=== PATIENT | male | born 1955 | race Caucasian/White ===

== ENCOUNTER 2021-12-14 08:40 | Outpatient (CLI) | payer MEDICARE, SELFPAY ==
[2021-12-14 09:04] LABS: Hematocrit 54.4 % (37.0-46.0); Hemoglobin 18.5 g/dL (12.4-15.3); Mean Corpuscular Hemoglobin 29.9 pg (27.0-31.0); Mean Platelet Volume 10.4 fl (8.7-11.0); Platelet Count Result 300 K/mm3 (150-420); Red Blood Count 6.18 M/mm3 (4.70-6.10); Red Cell Distribution Width 13.7 % (11.6-14.4)
[2021-12-14 09:25] LABS: Hemoglobin A1C 6.4 % (<5.7)
[2021-12-14 09:28] LABS: Alanine Aminotransferase 43 U/L (16-63); Alkaline Phosphatase 96 U/L (46-116); Anion Gap 15 mmol/L (8-16); Aspartate Amino Transferase 27 U/L (15-37); Bilirubin,Total 0.5 mg/dL (0.00-1.00); Blood Urea Nitrogen 14 mg/dL (7-18); Calcium 9.1 mg/dL (8.5-10.1); Carbon Dioxide 28 mmol/L (21-32); Chloride 99 mmol/L (98-108); Cholesterol 129 mg/dL (0-200); Estimated Glomerular Filt Rate > 60; Glucose 130 mg/dL (70-99); HDL Direct 42 mg/dL (40-60); LDL Cholesterol Calculated 61 mg/dL (<130); Osmolality Calculated 296 mOsm/kg (285-295); Potassium 3.6 mmol/L (3.5-5.1); Sodium 142 mmol/L (136-145); Total Protein 7.8 g/dL (6.4-8.2); Triglycerides 130 mg/dL (0-150)
[2021-12-14 09:50] LABS: MALB Creatinine Ratio 580.2 mg/g (0-30); Microalbumin Urine Random 152.6 mg/L
== END 2021-12-14 08:41 | disposition home or self-care (01) ==
LOC: CHSLAB 08:48
PROVIDERS: PCP Internal Medicine; Visit Provider Internal Medicine
DX: E11.9 Type 2 diabetes mellitus without complications (principal); I10 Essential (primary) hypertension
CPT/HCPCS: 36415; 80053; 80061; 82043; 83036; 85027

== ENCOUNTER 2022-04-25 08:22 | Outpatient (CLI) | payer MEDICARE, SELFPAY ==
[2022-04-25 08:46] LABS: Basophils Absolute Auto 0.05 K/mm3 (0.00-0.10); Basophils Percent Auto 0.3 % (0.0-1.0); Eosinophils Absolute Auto 0.14 K/mm3 (0.02-0.50); Eosinophils Percent Auto 0.9 % (1.0-6.0); Hematocrit 53.6 % (37.0-46.0); Hemoglobin 17.7 g/dL (12.4-15.3); Immature Granulocyte Absolute 0.06 K/mm3 (0.00-0.00); Immature Granulocyte Percent A 0.4 % (0.0-0.0); Lymphocytes Absolute Auto 3.17 K/mm3 (1.10-4.50); Lymphocytes Percent Auto 20.3 % (18.0-42.0); Mean Corpuscular Hemoglobin 29.4 pg (27.0-31.0); Monocytes Absolute Auto 1.21 K/mm3 (0.10-0.90); Monocytes Percent Auto 7.7 % (2.0-11.0); Neutrophils Percent Auto 70.4 % (50.0-70.0); Platelet Count Result 312 K/mm3 (150-420); Red Blood Count 6.02 M/mm3 (4.70-6.10); Red Cell Distribution Width 13.6 % (11.6-14.4); White Blood Count 15.6 K/mm3 (4.8-10.8)
[2022-04-25 09:24] LABS: Hemoglobin A1C 5.9 % (<5.7)
[2022-04-25 09:53] LABS: Alanine Aminotransferase 24 U/L (16-63); Albumin Level 3.7 g/dL (3.4-5.0); Alkaline Phosphatase 111 U/L (46-116); Anion Gap 13 mmol/L (8-16); Aspartate Amino Transferase 18 U/L (15-37); Bilirubin,Total 0.4 mg/dL (0.00-1.00); Blood Urea Nitrogen 14 mg/dL (7-18); Carbon Dioxide 30 mmol/L (21-32); Chloride 102 mmol/L (98-108); Cholesterol 137 mg/dL (0-200); Estimated Glomerular Filt Rate > 60; Glucose 121 mg/dL (70-99); HDL Direct 35 mg/dL (40-60); LDL Cholesterol Calculated 76 mg/dL (<130); Osmolality Calculated 301 mOsm/kg (285-295); Potassium 3.7 mmol/L (3.5-5.1); Sodium 145 mmol/L (136-145); Total Protein 7.3 g/dL (6.4-8.2); Triglycerides 131 mg/dL (0-150)
== END 2022-04-25 08:23 | disposition home or self-care (01) ==
LOC: CHSLAB 08:24
PROVIDERS: PCP Internal Medicine; Visit Provider Internal Medicine
DX: E11.9 Type 2 diabetes mellitus without complications (principal); E78.2 Mixed hyperlipidemia
CPT/HCPCS: 36415; 80053; 80061; 83036; 85025

== ENCOUNTER 2022-09-13 08:38 | Outpatient (CLI) | payer MEDICARE, SELFPAY ==
[2022-09-13 09:28] LABS: Basophils Absolute Auto 0.06 K/mm3 (0.00-0.10); Basophils Percent Auto 0.4 % (0.0-1.0); Eosinophils Absolute Auto 0.14 K/mm3 (0.02-0.50); Eosinophils Percent Auto 0.9 % (1.0-6.0); Hematocrit 53.6 % (37.0-46.0); Hemoglobin 17.6 g/dL (12.4-15.3); Immature Granulocyte Absolute 0.06 K/mm3 (0.00-0.00); Immature Granulocyte Percent A 0.4 % (0.0-0.0); Lymphocytes Absolute Auto 3.08 K/mm3 (1.10-4.50); Lymphocytes Percent Auto 19.7 % (18.0-42.0); Mean Corpuscular HGB Conc 32.8 g/dL (32.0-36.0); Mean Corpuscular Hemoglobin 28.9 pg (27.0-31.0); Mean Corpuscular Volume 88.2 fL (78.0-102.0); Mean Platelet Volume 10.4 fl (8.7-11.0); Monocytes Absolute Auto 1.26 K/mm3 (0.10-0.90); Monocytes Percent Auto 8.1 % (2.0-11.0); Neutrophils Percent Auto 70.5 % (50.0-70.0); Platelet Count Result 283 K/mm3 (150-420); Red Blood Count 6.08 M/mm3 (4.70-6.10); Red Cell Distribution Width 13.5 % (11.6-14.4); White Blood Count 15.6 K/mm3 (4.8-10.8)
[2022-09-13 09:50] LABS: Hemoglobin A1C 6.2 % (<5.7)
[2022-09-13 10:39] LABS: Creatinine Urine 92.26 mg/dL (40-278); MALB Creatinine Ratio 105.6 mg/g (0-30); Microalbumin Urine Random 97.5 mg/L
[2022-09-13 11:29] LABS: Alanine Aminotransferase 19 U/L (16-63); Albumin Level 3.7 g/dL (3.4-5.0); Alkaline Phosphatase 117 U/L (46-116); Anion Gap 12 mmol/L (8-16); Aspartate Amino Transferase 14 U/L (15-37); Bilirubin,Total 0.5 mg/dL (0.00-1.00); Blood Urea Nitrogen 12 mg/dL (7-18); Calcium 8.7 mg/dL (8.5-10.1); Carbon Dioxide 29 mmol/L (21-32); Chloride 105 mmol/L (98-108); Cholesterol 141 mg/dL (0-200); Estimated Glomerular Filt Rate > 60; Glucose 117 mg/dL (70-99); HDL Direct 38 mg/dL (40-60); LDL Cholesterol Calculated 86 mg/dL (<130); Osmolality Calculated 302 mOsm/kg (285-295); Potassium 3.9 mmol/L (3.5-5.1); Sodium 146 mmol/L (136-145); Total Protein 7.4 g/dL (6.4-8.2); Triglycerides 83 mg/dL (0-150)
== END 2022-09-13 08:39 | disposition home or self-care (01) ==
LOC: CHSLAB 08:44
DX: E11.9 Type 2 diabetes mellitus without complications (principal); I10 Essential (primary) hypertension
CPT/HCPCS: 36415; 80053; 80061; 82043; 83036; 85025

== ENCOUNTER 2023-01-18 08:23 | Outpatient (CLI) | payer MEDICARE, SELFPAY ==
[2023-01-18 08:49] LABS: Basophils Absolute Auto 0.07 K/mm3 (0.00-0.10); Basophils Percent Auto 0.5 % (0.0-1.0); Eosinophils Absolute Auto 0.18 K/mm3 (0.02-0.50); Eosinophils Percent Auto 1.3 % (1.0-6.0); Hemoglobin 17.9 g/dL (12.4-15.3); Immature Granulocyte Absolute 0.07 K/mm3 (0.00-0.00); Immature Granulocyte Percent A 0.5 % (0.0-0.0); Lymphocytes Absolute Auto 3.15 K/mm3 (1.10-4.50); Lymphocytes Percent Auto 22.6 % (18.0-42.0); Mean Corpuscular HGB Conc 33.8 g/dL (32.0-36.0); Mean Corpuscular Volume 88.9 fL (78.0-102.0); Mean Platelet Volume 10.4 fl (8.7-11.0); Monocytes Absolute Auto 1.05 K/mm3 (0.10-0.90); Monocytes Percent Auto 7.5 % (2.0-11.0); Neutrophils Absolute Auto 9.4 K/mm3 (1.7-7.2); Neutrophils Percent Auto 67.6 % (50.0-70.0); Platelet Count Result 278 K/mm3 (150-420); Red Blood Count 5.96 M/mm3 (4.70-6.10); Red Cell Distribution Width 13.3 % (11.6-14.4); White Blood Count 13.9 K/mm3 (4.8-10.8)
[2023-01-18 09:12] LABS: Hemoglobin A1C 6.3 % (<5.7)
[2023-01-18 09:26] LABS: Alanine Aminotransferase 8 U/L (16-63); Albumin Level 3.8 g/dL (3.4-5.0); Alkaline Phosphatase 113 U/L (46-116); Anion Gap 11 mmol/L (8-16); Aspartate Amino Transferase 16 U/L (15-37); Bilirubin,Total 0.4 mg/dL (0.00-1.00); Blood Urea Nitrogen 12 mg/dL (7-18); Calcium 8.8 mg/dL (8.5-10.1); Carbon Dioxide 29 mmol/L (21-32); Chloride 104 mmol/L (98-108); Cholesterol 138 mg/dL (0-200); Estimated Glomerular Filt Rate > 60; Glucose 121 mg/dL (70-99); HDL Direct 36 mg/dL (40-60); LDL Cholesterol Calculated 81 mg/dL (<130); Osmolality Calculated 298 mOsm/kg (285-295); Potassium 3.6 mmol/L (3.5-5.1); Sodium 144 mmol/L (136-145); Total Protein 7.6 g/dL (6.4-8.2); Triglycerides 104 mg/dL (0-150)
== END 2023-01-18 08:24 | disposition home or self-care (01) ==
LOC: CHSLAB 08:27
PROVIDERS: PCP Internal Medicine; Visit Provider Internal Medicine
DX: I10 Essential (primary) hypertension (principal); E11.9 Type 2 diabetes mellitus without complications; D72.829 Elevated white blood cell count, unspecified
CPT/HCPCS: 36415; 80053; 80061; 83036; 85025

== ENCOUNTER 2023-06-20 10:52 | Emergency (ER) | payer MEDICARE, SELFPAY ==
--- NOTE | ~2023-06-20 | XR_ITS ---
EXAMINATION: XR hip LT 2V w AP pelvis DATE: 06/20/2023 11:40 INDICATION: Left hip pain. Fall. TECHNIQUE: An anteroposterior view of the pelvis and 2 views of left hip were obtained. COMPARISON: None. FINDINGS: There is a fracture of proximal left femur involving the base of the neck and the greater t rochanter. The distal fracture fragment demonstrates impaction. There is widening of right femoral he ad with lateral uncovering, consistent with developmental dysplasia. There is moderate osteoarthritis of the hips. There is lumbar dextroscoliosis and severe spondylosis. IMPRESSION: 1. Intertrochanteric fracture of proximal left femur. 2. Moderate osteoarthritis of the hips. 3. Developmental dysplasia of right hip. Reviewed, dictated and finalized at location A.
--- NOTE | ~2023-06-20 | CT_ITS ---
EXAMINATION: CT BRAIN W/O DATE: 06/20/2023 11:36 INDICATION: Accidental fall. Head injury. TECHNIQUE: Computed tomography (CT) of the head was performed without intravenous contrast. The dose- length product was 605.33 mGy-cm. COMPARISON: No prior studies for comparison. FINDINGS: Mild generalized atrophy. No acute intracranial hemorrhage, infarction, mass or mass effect . No ventriculomegaly. There is intracranial atherosclerosis. No ventriculomegaly or midline shift. Midline sagittal images demonstrate a normal corpus callosum, c raniovertebral junction and sella turcica. Basilar cisterns are patent. There are air-fluid levels in the ethmoid sinuses consistent with sinus disease. Mastoids are pneumat ized. No depressed skull fractures. IMPRESSION: 1. No acute intracranial abnormality. 2: Mild sinus disease. Reviewed, dictated and finalized at location B.
[2023-06-20 10:55] VITALS: BP 184/98; PULSE 81; RESP 18; TEMP 36.7; O2SAT 98
--- NOTE | 2023-06-20 11:02 | ED.LOWEXIN ---
HPI - Extremity Injury (Lower) General Chief Complaint: Extremity Injury, Lower Stated Complaint: fall, left hip pain Time Seen by Provider: 06/20/23 11:02 Source: patient Mode of arrival: ambulatory Limitations: no limitations History of Present Illness HPI Narrative: 68-year-old male with a history of hypertension, diabetes mellitus, dyslipidemia, CAD status post stent in 1999, had a fall 1 week ago. Subsequently he has had difficulty ambulating. He does not have pain at rest but complains of pain on attempting to walk. No other injuries noted. MD complaint: hip injury Onset (ago): week(s) ( One week ago) Type of Injury: blunt Place: home Severity: moderate Relieving factors: immobilization Exacerbating factors: movement Context: fall Other symptoms: none Related Data Home Medications Medication Instructions Recorded Confirmed amlodipine 10 mg tablet 10 mg PO DAILY 06/20/23 06/20/23 aspirin 81 mg tablet,delayed 81 mg PO DAILY 06/20/23 06/20/23 release (Adult Low Dose Aspirin) benazepril 40 mg tablet 40 mg PO DAILY 06/20/23 06/20/23 carvedilol 25 mg tablet 25 mg PO BID 06/20/23 06/20/23 clonidine HCl 0.2 mg tablet 0.2 mg PO TID 06/20/23 06/20/23 clopidogrel 75 mg tablet 75 mg PO DAILY 06/20/23 06/20/23 empagliflozin 10 mg tablet 10 mg PO DAILY 06/20/23 06/20/23 (Jardiance) metformin 1,000 mg tablet 1,000 mg PO DAILY 06/20/23 06/20/23 simvastatin 20 mg tablet 20 mg PO DAILY 06/20/23 06/20/23 Allergies Allergy/AdvReac Type Severity Reaction Status Date / Time No Known Allergies Allergy Verified 06/20/23 11:00 Review of Systems Review of Systems: All systems reviewed & are unremarkable except as noted in HPI and below Constitutional: Constitutional: Reports as per HPI and Reports no additional constitutional complaints Eyes: Eyes: Reports as per HPI and Reports no additional eye complaints ENT: Reports system reviewed and no additional complaints, except as documented and Reports as per HPI Cardiovascular: Cardiovascular: Reports as per HPI and Reports no additional cardiovascular complaints Respiratory: Respiratory: Reports as per HPI and Reports no additional respiratory complaints Gastrointestinal: Gastrointestinal: Reports as per HPI and Reports no additional gastrointestinal complaints Genitourinary: Genitourinary: Reports no additional male genitourinary complaints and Reports as per HPI Musculoskeletal: Musculoskeletal: Reports no additional musculoskeletal complaints and Reports as per HPI Comments: left hip pain made worse by walking Integumentary/Breasts: Skin/Breast: Reports system reviewed and no additional complaints, except as docu and Reports as per HPI Neurologic: Reports system reviewed and no additional complaints, except as documented and Reports as per HPI Psychiatric: Psychiatric: Reports no additional psychiatric complaints and Reports as per HPI Endocrine: Endocrine: Reports no additional endocrine complaints and Reports as per HPI Hematologic/Lymphatic: Hematologic/Lymphatic: Reports no additional hematologic/lymphatic complaints and Reports as per HPI Allergic/Immunologic: Allergic/Immunologic: Reports no additional allergic/immunologic complaints and Reports as per HPI [facility] Past Medical History Medical History (Updated 06/20/23 @ 13:03 by Kamlesh Tillman MD) Diabetes mellitus Dyslipidemia Hypertension Exam Narrative: hypertensive Const: General: no acute distress Orientation/consciousness: patient oriented x3 Limitations: no limitations HENMT: Head: normal to inspection Ears: external ears normal Face/Nose/Sinus: Normal external nose present Face and sinus: normal facial exam Mouth: Yes Normal oral and palatal mucosa present Throat: posterior oropharynx normal Eyes: Conjunctivae: conjunctivae normal Pupils: Equal, round and reactive pupils present EOM: EOMs intact bilaterally Direct Ophthalmoscopy: no photophobia Neck: Neck: n
[2023-06-20 11:20] VITALS: BP 165/90
[2023-06-20 12:46] LABS: Basophils Absolute Auto 0.07 K/mm3 (0.00-0.10); Basophils Percent Auto 0.5 % (0.0-1.0); Eosinophils Absolute Auto 0.08 K/mm3 (0.02-0.50); Eosinophils Percent Auto 0.6 % (1.0-6.0); Hematocrit 53.3 % (37.0-46.0); Hemoglobin 17.6 g/dL (12.4-15.3); Immature Granulocyte Absolute 0.06 K/mm3 (0.00-0.00); Immature Granulocyte Percent A 0.4 % (0.0-0.0); Lymphocytes Absolute Auto 2.22 K/mm3 (1.10-4.50); Lymphocytes Percent Auto 15.8 % (18.0-42.0); Mean Corpuscular Hemoglobin 29.8 pg (27.0-31.0); Mean Corpuscular Volume 90.2 fL (78.0-102.0); Mean Platelet Volume 10.5 fl (8.7-11.0); Monocytes Absolute Auto 0.91 K/mm3 (0.10-0.90); Monocytes Percent Auto 6.5 % (2.0-11.0); Neutrophils Absolute Auto 10.7 K/mm3 (1.7-7.2); Neutrophils Percent Auto 76.2 % (50.0-70.0); Platelet Count Result 300 K/mm3 (150-420); Red Blood Count 5.91 M/mm3 (4.70-6.10); Red Cell Distribution Width 13.9 % (11.6-14.4)
[2023-06-20 13:03] LABS: Partial Thromboplastin Time 28.2 SEC (23.90-30.70); Prothrombin Time 11.3 Seconds (9.50-12.10)
[2023-06-20 13:05] LABS: Alanine Aminotransferase 18 U/L (16-63); Albumin Level 3.6 g/dL (3.4-5.0); Alkaline Phosphatase 112 U/L (46-116); Anion Gap 7 mmol/L (8-16); Aspartate Amino Transferase 20 U/L (15-37); Bilirubin,Total 0.6 mg/dL (0.00-1.00); Blood Urea Nitrogen 13 mg/dL (7-18); Calcium 8.8 mg/dL (8.5-10.1); Carbon Dioxide 33 mmol/L (21-32); Chloride 102 mmol/L (98-108); Estimated CRCL calculation 69 ml/min; Estimated Glomerular Filt Rate > 60; Glucose 123 mg/dL (70-99); NT Pro B Type Natriuretic Pept 265 pg/mL (0-125); Osmolality Calculated 295 mOsm/kg (285-295); Potassium 3.5 mmol/L (3.5-5.1); Sodium 142 mmol/L (136-145); Total Protein 7.7 g/dL (6.4-8.2); Troponin I 14.6 ng/L (0.00-60.4)
[2023-06-20 13:10] VITALS: BP 175/88; PULSE 83; RESP 17; TEMP 36.6; O2SAT 98
[2023-06-20 13:35] VITALS: BP 171/90; PULSE 75; RESP 16; TEMP 36.6; O2SAT 99
[2023-06-20 13:41] LABS: Appearance Urine Clear (Clear); Bilirubin Urine Negative (Negative); Blood Urine Negative (Negative); Color Urine Light Yellow (Yellow); Glucose Urine UA 3+ (Negative); Ketones Urine Trace (Negative); Leukocyte Esterase Ur Negative LEU/UL (Negative); Nitrate Urine Positive (Negative); Protein Urine Negative (Negative); Urobilinogen Urine 0.2 mg/dL (0.2-1.0)
[2023-06-20 13:50] LABS: Add Urine Microscopic? YES; RBC Urine None seen /hpf (0-2); WBC Urine None seen /hpf (0-3)
[2023-06-20 13:51] LABS: Bacteria Urine 2+ /hpf
--- NOTE | 2023-06-23 12:55 | PC.NURSE ---
Final urine culture report faxed to [facility], Patient transferred to [facility] and is in room 920. report faxed to [phone]
== END 2023-06-20 13:40 | disposition short-term general hospital (02) ==
PROVIDERS: Emergency Provider Internal Medicine Critical Care Medicine; PCP Internal Medicine
DX: S72.142A Displaced intertrochanteric fracture of left femur, initial encounter for closed fracture (principal); E11.9 Type 2 diabetes mellitus without complications; I10 Essential (primary) hypertension; E78.5 Hyperlipidemia, unspecified; I25.10 Atherosclerotic heart disease of native coronary artery without angina pectoris; Z79.82 Long term (current) use of aspirin; Z79.84 Long term (current) use of oral hypoglycemic drugs; W19.XXXA Unspecified fall, initial encounter; Y92.009 Unspecified place in unspecified non-institutional (private) residence as the place of occurrence of the external cause
CPT/HCPCS: 36415; 70450; 73502; 80053; 81001; 83880; 84484; 85025; 85610; 85730; 87077; 87086; 87088; 87186; 99285

== ENCOUNTER 2023-07-12 15:33 | Outpatient (RCR) | payer MEDICARE, SELFPAY ==
--- NOTE | 2023-07-12 14:57 | OPREHPOC ---
Outpatient Therapy Plan of Care This is a Multidisciplinary Plan of Care that may contain components documented by all disciplines (PT, OT, and ST.) PT Problem 1 PT Problem #1 Knowledge Deficit PT Goal 1 Goal 1. independent and compliant with HEP Target Visit 6 PT Problem 2 PT Problem #2 Impaired Strength PT Goal 1 Goal 1. patient to perform SLR of the L LE without extension lag 2. 4/5 L hip flexion or better 3. 5/5 L knee flexion and extension 4. 5/5 L ankle DF Target Visit 12 PT Problem 3 PT Problem #3 Impaired Balance PT Goal 1 Goal 1. tinetti to display moderate fall risk or less ( achieving score of 19/28 or better). 2. no falls Target Visit 12 PT Problem 4 PT Problem #4 Impaired Functional Mobil PT Goal 1 Goal 1. patient to ambulate with equal step/stride length bilaterally with walker to progress to cane for ambulation 2. patient to ambulate up and down 4 steps with marked time pattern and 1 hand rail hold 3. complete 6 minute walk test for 600ft or more Target Visit 12 PT Problem 5 PT Problem #5 Impaired Flexibility PT Goal 1 Goal 1. improve hip posture to achieve neutral/no hip flexion in standing 2. improve bilateral hamstrings flexibility to 30 degrees or less tightness per the 90/90 test Target Visit 12
--- NOTE | 2023-07-12 14:57 | PTOPEVAL1 ---
Assessment and note entered by JT File, PT Evaluation Information Assessment Status Evaluation Diagnosis s/p CMN L hip, L femur fracture Onset 06/22/23 Subjective Information patient reports he fell in his living room. he reports he was using a cane prior to the fall. he had surgery to stabilize his fracture. he reports he just had the jules removed from the incision last week. he reports he is wanting to get stronger and get back to a cane or less for walking. Reported Pain Level Pain Score 1: Self Report Assessment PT Clinical Summary mr. birmingham is a 68 yo man who presents to skilled PT services for evaluation and treatment of L hip pain, weakness, and abnormal gait following a fracture and surgical repair of the L hip. he presents with objective L hip weakness, decreased rom, poor flexibility, abnormal gait, and balance. he would benefit from continued skilled PT to address these objective/functional deficits to return to his prior level functional activity performance/quality of life. Plan of Care Interventions Gait Training,Manual Therapy,Neuro Re-education, Patient/Caregiver Educati,Therapeutic Activities, Therapeutic Exercise PT Services Indicated Yes Treatment Frequency and 3x weekly for 12 visits Duration These treatments will address the objective and functional deficits as defined above. The patient will be advanced safely and appropriately in order for the patient to progress towards his/her prior level of function. Additional exercises will be introduced and as well as a comprehensive home exercise program upon discharge, if needed, ?to ensure carryover of functional gains achieved in the clinic. This treatment plan has been reviewed and agreement upon by the patient.
--- NOTE | 2023-08-02 17:07 | PTOPPROGNS ---
Assessment and note entered by Paulette Salinas, PT Evaluation Information Assessment Status Progress Diagnosis s/p CMN L hip, L femur fracture Onset 06/22/23 Subjective Information Shaheen Headley reports his left hip has had very little pain. He rates less than 1/10 at all time. He is using his front door to go in and out of his house because there is a hand rail and he feels a little unsteady without a hand rail. He also notes limitations with how far he can walk. He denies fall since initiating PT. Assessment PT Clinical Summary Shaheen Headley has completed 10 skilled physical therapy visits following a left femur fracture with CMN. He is reporting low pain levels in the left hip however, he still has weakness and limitations with walking. He is demonstrating steady improvements in gait, balance, and LE strength however, he still has impaired gait, decreased dynamic balance, decreased left hip strength, and decreased functional abilities. He will continue to benefit from skilled PT to further address these limitations. Plan of Care Interventions Therapeutic Activities,Therapeutic Exercise PT Services Indicated Yes Treatment Frequency and Continue original POC for 2 additional visits Duration These treatments will address the objective and functional deficits as defined above. The patient will be advanced safely and appropriately in order for the patient to progress towards his/her prior level of function. Additional exercises will be introduced and as well as a comprehensive home exercise program upon discharge, if needed, ?to ensure carryover of functional gains achieved in the clinic. This treatment plan has been reviewed and agreement upon by the patient.
--- NOTE | 2023-08-09 14:36 | OPREHPOC ---
Outpatient Therapy Plan of Care This is a Multidisciplinary Plan of Care that may contain components documented by all disciplines (PT, OT, and ST.) PT Problem 1 PT Problem #1 Knowledge Deficit PT Goal 1 Goal 1. independent and compliant with HEP Target Visit 6 Progress Met Comment . PT Problem 2 PT Problem #2 Impaired Strength PT Goal 1 Goal 1. patient to perform SLR of the L LE without extension lag 2. 4/5 L hip flexion or better 3. 5/5 L knee flexion and extension 4. 5/5 L ankle DF Target Visit 12 Progress Met PT Problem 3 PT Problem #3 Impaired Balance PT Goal 1 Goal 1. tinetti to display moderate fall risk or less ( achieving score of 19/28 or better). 2. no falls Target Visit 12 Progress Not Met Comment #1 not met PT Problem 4 PT Problem #4 Impaired Functional Mobil PT Goal 1 Goal 1. patient to ambulate with equal step/stride length bilaterally with walker to progress to cane for ambulation -met 2. patient to ambulate up and down 4 steps with marked time pattern and 1 hand rail hold -met 3. complete 6 minute walk test for 600ft or more - progressing, continue Target Visit 12 Progress Not Met Comment #3 not met PT Problem 5 PT Problem #5 Impaired Flexibility PT Goal 1 Goal 1. improve hip posture to achieve neutral/no hip flexion in standing 2. improve bilateral hamstrings flexibility to 30 degrees or less tightness per the 90/90 test Target Visit 12 Progress Not Met
--- NOTE | 2023-08-09 14:37 | PTOPDC ---
Assessment and note entered by Sruthi Griffiths DPT Evaluation Information Assessment Status Re-evaluation Diagnosis s/p CMN L hip, L femur fracture Onset 06/22/23 Subjective Information He reports no falls since start of PT. He reports he uses the cane most times but does occasionally use the walker at home. He reports he does feel like strength and balance have improved since start of PT. He reports he has not had any hip pain Reported Pain Level Pain Score 0: Self Report Assessment PT Clinical Summary Mr. Griffin attended 12 visits of skilled PT with great progress towards goals. Patient met goals for strength, pain and HEP. He made progress towards balance, ambulation and flexibility goals but did not meet them. He reports no falls since start of PT and has been using a cane most of the time. He is independent with HEP and is appropriate for DC at this time. Plan of Care PT Services Indicated No
== END 2023-08-09 11:31 | disposition home or self-care (01) ==
LOC: CHSPT 15:33
PROVIDERS: Visit Provider Orthopaedic Surgery Orthopaedic Trauma
DX: S72.142D Displaced intertrochanteric fracture of left femur, subsequent encounter for closed fracture with routine healing (principal)
CPT/HCPCS: 97110; 97150; 97161; 97530; 97750

== ENCOUNTER 2023-07-27 10:22 | Outpatient (CLI) | payer MEDICARE, SELFPAY ==
[2023-07-27 10:35] LABS: Basophils Absolute Auto 0.06 K/mm3 (0.00-0.10); Basophils Percent Auto 0.5 % (0.0-1.0); Eosinophils Absolute Auto 0.12 K/mm3 (0.02-0.50); Hematocrit 52.7 % (37.0-46.0); Hemoglobin 17.6 g/dL (12.4-15.3); Immature Granulocyte Absolute 0.03 K/mm3 (0.00-0.00); Immature Granulocyte Percent A 0.3 % (0.0-0.0); Lymphocytes Absolute Auto 2.89 K/mm3 (1.10-4.50); Mean Corpuscular HGB Conc 33.4 g/dL (32.0-36.0); Mean Corpuscular Hemoglobin 30.3 pg (27.0-31.0); Mean Corpuscular Volume 90.9 fL (78.0-102.0); Mean Platelet Volume 10.6 fl (8.7-11.0); Monocytes Absolute Auto 1.03 K/mm3 (0.10-0.90); Monocytes Percent Auto 8.9 % (2.0-11.0); Neutrophils Absolute Auto 7.4 K/mm3 (1.7-7.2); Neutrophils Percent Auto 64.3 % (50.0-70.0); Platelet Count Result 285 K/mm3 (150-420); Red Cell Distribution Width 13.6 % (11.6-14.4); White Blood Count 11.6 K/mm3 (4.8-10.8)
[2023-07-27 10:55] LABS: Hemoglobin A1C 5.3 % (<5.7)
[2023-07-27 11:29] LABS: Alanine Aminotransferase 20 U/L (16-63); Albumin Level 3.8 g/dL (3.4-5.0); Alkaline Phosphatase 129 U/L (46-116); Anion Gap 13 mmol/L (8-16); Aspartate Amino Transferase 10 U/L (15-37); Bilirubin,Total 0.5 mg/dL (0.00-1.00); Blood Urea Nitrogen 11 mg/dL (7-18); Calcium 9.3 mg/dL (8.5-10.1); Carbon Dioxide 29 mmol/L (21-32); Chloride 103 mmol/L (98-108); Cholesterol 162 mg/dL (0-200); Estimated Glomerular Filt Rate > 60; Glucose 107 mg/dL (70-99); HDL Direct 42 mg/dL (40-60); LDL Cholesterol Calculated 100 mg/dL (<130); Osmolality Calculated 299 mOsm/kg (285-295); Potassium 3.9 mmol/L (3.5-5.1); Sodium 145 mmol/L (136-145); Total Protein 7.3 g/dL (6.4-8.2); Triglycerides 98 mg/dL (0-150)
== END 2023-07-27 10:23 | disposition home or self-care (01) ==
LOC: CHSLAB 10:25
PROVIDERS: PCP Internal Medicine; Visit Provider Internal Medicine
DX: E11.9 Type 2 diabetes mellitus without complications (principal); I10 Essential (primary) hypertension
CPT/HCPCS: 36415; 80053; 80061; 83036; 85025

== ENCOUNTER 2023-12-19 09:26 | Outpatient (CLI) | payer MEDICARE, SELFPAY ==
[2023-12-19 09:41] LABS: Basophils Percent Auto 0.8 % (0.0-1.0); Eosinophils Absolute Auto 0.49 K/mm3 (0.02-0.50); Eosinophils Percent Auto 3.8 % (1.0-6.0); Hematocrit 55.9 % (37.0-46.0); Hemoglobin 18.7 g/dL (12.4-15.3); Immature Granulocyte Absolute 0.04 K/mm3 (0.00-0.00); Immature Granulocyte Percent A 0.3 % (0.0-0.0); Lymphocytes Absolute Auto 3.78 K/mm3 (1.10-4.50); Lymphocytes Percent Auto 29.5 % (18.0-42.0); Mean Corpuscular HGB Conc 33.5 g/dL (32-36); Mean Corpuscular Hemoglobin 29.7 pg (27.0-31.0); Mean Corpuscular Volume 88.9 fL (78.0-102.0); Mean Platelet Volume 10.6 fl (8.7-11.0); Monocytes Absolute Auto 1.11 K/mm3 (0.10-0.90); Monocytes Percent Auto 8.7 % (2.0-11.0); Neutrophils Absolute Auto 7.29 K/mm3 (1.70-7.20); Neutrophils Percent Auto 56.9 % (50.0-70.0); Platelet Count Result 269 K/mm3 (150-420); Red Blood Count 6.29 M/mm3 (4.70-6.10); Red Cell Distribution Width 13.9 % (11.6-14.4); White Blood Count 12.8 K/mm3 (4.8-10.8)
[2023-12-19 09:50] LABS: Hemoglobin A1C 5.6 % (<5.7)
[2023-12-19 10:29] LABS: Alanine Aminotransferase 34 U/L (16-63); Albumin Level 4.2 g/dL (3.4-5.0); Alkaline Phosphatase 117 U/L (46-116); Anion Gap 14 mmol/L (8-16); Aspartate Amino Transferase 18 U/L (15-37); Bilirubin,Total 0.6 mg/dL (0.00-1.00); Blood Urea Nitrogen 15 mg/dL (7-18); Calcium 8.8 mg/dL (8.5-10.1); Carbon Dioxide 30 mmol/L (21-32); Chloride 99 mmol/L (98-108); Cholesterol 179 mg/dL (0-200); Estimated Glomerular Filt Rate > 60; Glucose 123 mg/dL (70-99); HDL Direct 44 mg/dL (40-60); LDL Cholesterol Calculated 106 mg/dL (<130); Osmolality Calculated 297 mOsm/kg (285-295); Potassium 3.6 mmol/L (3.5-5.1); Sodium 143 mmol/L (136-145); Total Protein 7.8 g/dL (6.4-8.2); Triglycerides 145 mg/dL (0-150)
== END 2023-12-19 09:27 | disposition home or self-care (01) ==
LOC: CHSLAB 09:30
PROVIDERS: PCP Internal Medicine; Visit Provider Internal Medicine
DX: I10 Essential (primary) hypertension (principal); E11.9 Type 2 diabetes mellitus without complications
CPT/HCPCS: 36415; 80053; 80061; 83036; 85025

== ENCOUNTER 2024-05-06 08:10 | Outpatient (CLI) | payer MEDICARE, SELFPAY ==
[2024-05-06 08:28] LABS: Hematocrit 54.2 % (37.0-46.0); Hemoglobin 18.6 g/dL (12.4-15.3); Mean Corpuscular HGB Conc 34.3 g/dL (32-36); Mean Corpuscular Hemoglobin 30.3 pg (27.0-31.0); Mean Corpuscular Volume 88.3 fL (78.0-102.0); Mean Platelet Volume 10.6 fl (8.7-11.0); Platelet Count Result 242 K/mm3 (150-420); Red Blood Count 6.14 M/mm3 (4.70-6.10); Red Cell Distribution Width 13.5 % (11.6-14.4); White Blood Count 12.3 K/mm3 (4.8-10.8)
[2024-05-06 08:39] LABS: Hemoglobin A1C 6.7 % (<5.7)
[2024-05-06 09:01] LABS: Alanine Aminotransferase 41 U/L (16-63); Alkaline Phosphatase 132 U/L (46-116); Anion Gap 12 mmol/L (4-12); Aspartate Amino Transferase 29 U/L (15-37); Bilirubin,Total 0.7 mg/dL (0.00-1.00); Blood Urea Nitrogen 12 mg/dL (7-18); Calcium 8.7 mg/dL (8.5-10.1); Carbon Dioxide 28 mmol/L (21-32); Chloride 102 mmol/L (98-108); Cholesterol 135 mg/dL (0-200); Estimated Glomerular Filt Rate > 60; Glucose 133 mg/dL (70-99); HDL Direct 39 mg/dL (40-60); LDL Cholesterol Calculated 70 mg/dL (<130); Osmolality Calculated 295 mOsm/kg (285-295); Potassium 3.7 mmol/L (3.5-5.1); Sodium 142 mmol/L (136-145); Total Protein 7.6 g/dL (6.4-8.2); Triglycerides 130 mg/dL (0-150)
== END 2024-05-06 08:11 | disposition home or self-care (01) ==
LOC: CHSLAB 08:13
PROVIDERS: PCP Internal Medicine; Visit Provider Internal Medicine
DX: I10 Essential (primary) hypertension (principal); E11.9 Type 2 diabetes mellitus without complications
CPT/HCPCS: 36415; 80053; 80061; 83036; 85027

== ENCOUNTER 2024-09-15 09:34 | Outpatient (CLI) | payer MEDICARE, SELFPAY ==
[2024-09-15 09:52] LABS: Hematocrit 54.3 % (37.0-46.0); Hemoglobin 18.3 g/dL (12.4-15.3); Mean Corpuscular HGB Conc 33.7 g/dL (32-36); Mean Corpuscular Hemoglobin 29.8 pg (27.0-31.0); Mean Corpuscular Volume 88.3 fL (78.0-102.0); Mean Platelet Volume 10.7 fl (8.7-11.0); Platelet Count Result 271 K/mm3 (150-420); Red Blood Count 6.15 M/mm3 (4.70-6.10); Red Cell Distribution Width 13.6 % (11.6-14.4); White Blood Count 13.1 K/mm3 (4.8-10.8)
[2024-09-15 10:14] LABS: Hemoglobin A1C 6.4 % (<5.7)
[2024-09-15 10:44] LABS: Alanine Aminotransferase 29 U/L (16-63); Albumin Level 3.8 g/dL (3.4-5.0); Alkaline Phosphatase 136 U/L (46-116); Anion Gap 12 mmol/L (4-12); Aspartate Amino Transferase 18 U/L (15-37); Bilirubin,Total 0.7 mg/dL (0.00-1.00); Blood Urea Nitrogen 15 mg/dL (7-18); Calcium 9.2 mg/dL (8.5-10.1); Carbon Dioxide 27 mmol/L (21-32); Chloride 101 mmol/L (98-108); Cholesterol 141 mg/dL (0-200); Estimated Glomerular Filt Rate > 60; Glucose 139 mg/dL (70-99); HDL Direct 37 mg/dL (40-60); LDL Cholesterol Calculated 75 mg/dL (<130); Osmolality Calculated 292 mOsm/kg (285-295); Potassium 4.2 mmol/L (3.5-5.1); Sodium 140 mmol/L (136-145); Thyroid Stimulating Hormone 2.32 uIU/mL (0.36-3.74); Total Protein 7.3 g/dL (6.4-8.2); Triglycerides 143 mg/dL (0-150)
== END 2024-09-15 09:35 | disposition home or self-care (01) ==
LOC: CHSLAB 09:40
PROVIDERS: PCP Internal Medicine
DX: I50.42 Chronic combined systolic (congestive) and diastolic (congestive) heart failure (principal); I10 Essential (primary) hypertension; E11.9 Type 2 diabetes mellitus without complications
CPT/HCPCS: 36415; 80053; 80061; 83036; 84443; 85027

== ENCOUNTER 2025-02-18 12:18 | Emergency (ER) | payer MEDICARE, SELFPAY ==
[2025-02-18] VITALS (76 sets, daily range): BP systolic 67–192; BP diastolic 50–116; PULSE 48–100; RESP 16–31; TEMP 36.3–36.6; O2SAT 91–100
--- NOTE | ~2025-02-18 | XR_ITS ---
Portable chest x-ray Comparison: None Clinical History: Shortness of breath Findings: Small left pleural effusion present. Probable mild pulmonary edema. Cardiomediastinal kate houette is stable. Bones and soft tissues are unremarkable. Impression: Small left pleural effusion with possible mild pulmonary edema pattern bilaterally. Reviewed, dictated and finalized at [facility]. Impression: Small left pleural effusion with possible mild pulmonary edema pattern julien rodriguez.
--- OUTSIDE RECORDS SUMMARY | 2025-02-18 12:20 | XMS_ITS | Clinical Summary ---
Author Organization [facility] Address [address] [place] [address] Care Team Providers Care Placement Assistant Name Role Phone None, Provider MD Primary Care Provider Unavaila ble Allergies No known active allergies Medications aspirin 81 MG chewable tablet Chew 1 tablet (81 mg total) by mouth daily. Active amLODIPine (NORVASC) 10 MG tablet Take 1 tablet (10 mg total) by mouth daily. Active simvastatin (ZOCOR) 20 MG tablet Take 1 tablet (20 mg total) by mouth nightly at bedtime. Active metFORMIN ER, OSM, (FORTAMET) 1000 MG TABLET SR 24 HR 24 hr tablet Take 1 tablet (1,000 mg total) by mouth every morning before breakfast. Active benazepril (LOTENSIN) 20 MG tablet Take 2 tablets (40 mg total) by mouth daily. Active carvedilol (COREG) 25 MG tablet Take 1 tablet (25 mg total) by mouth 2 (two) times daily. Active cloNIDine (CATAPRES) 0.2 MG tablet Take 1 tablet (0.2 mg total) by mouth 3 times daily. Active empagliflozin (JARDIANCE) 10 MG tablet Take 1 tablet (10 mg total) by mouth daily. Active clopidogrel (PLAVIX) 75 MG tablet Take 1 tablet (75 mg total) by mouth daily. Active HYDROcodone-noah taminophen (NORCO) 5-325 MG tabletIndicatio ns:Acute Pain < 3 Day Supply,Acute Pain < 7 Day Supply Take 1 tablet by mouth every 4 (four) hours as needed. Indications: Acute Pain < 3 Day Supply, Acute Pain < 7 Day Supply 10 tablet 06/25/2023 Active Active Problems Problem Noted Date Diagnosed Date Closed left hip fracture, in itial encounter ([facility]) 06/20/2023 Encounters Date Type Department Care Team Description 12/05/2024 Telephone [facility], [address] [place] [address] Leonor Trevino, RMA Appointment Request (Self ref) from Last 3 Months Social History Tobacco Use Types Packs/Day Years Used Date Smoking Tobacco: Every Day Cigarettes Tobacco Cessation:Ready to Q uit: No; Counseling Given: Not Answered Humiliation, Afraid, Rape, and Kick questionnair e Answer Date Recorded Within the last year, have y ou been afraid of your partner or ex-partner? No 06/20/2023 Within the last year, have y ou been humiliated or emotionally abused in other ways by your partner or ex-partner? No Within the last year, have y ou been kicked, hit, slapped, or otherwise physically hurt by your partner or ex-partner? No 06/20/2023 Within the last year, have y ou been raped or forced to have any kind of sexual activity by your partner or ex-partner? No 06/20/2023 Overall Financial Resource Strain (CARDIA) Answe r Date Recorded How hard is it for you to pa y for the very basics like food, housing, medical care, and heating? Not very hard 06/20/2023 Hunger Vital Sign Answer Date Recorded Within the past 12 months, y ou worried that your food would run out before you got the money to buy more. Never true 06/20/20 23 Within the past 12 months, t he food you bought just didn't last and you didn't have money to get more. Never true 06/20/2023 PRAPARE - Transportation Answer Date Re corded In the past 12 months, has l ack of transportation kept you from medical appointments or from getting medications? No 06/08 In the past 12 months, has l ack of transportation kept you from meetings, work, or from getting things needed for daily living? No 06/20/2023 Housing Stability Vital Sign Answer Yang e Recorded In the last 12 months, was t here a time when you were not able to pay the mortgage or rent on time? No 06/20/2023 In the last 12 months, how many places have you lived? 1 06/20/2023 In the last 12 months, was t here a time when you did not have a steady place to sleep or slept in a fci (including now)? No 06/20/2023 Sex and Gender Information Value Date Recorded Sex Assigned at Not on file Legal Sex Male 12:27 PM CDT Gender Identity Not on file Sexual Orientation Not on file Last Filed Vital Signs Vital Sign Reading Time Taken Comments Blood Pressure 174/97 06/25/2023 8:06 AM CDT Nurse Viki CURRY aware of abnormal B/P. Pulse 78 06/25/2023 8:06 AM CDT Temperature 36.5 C (97.7 F) 06/25/2023 8:04 AM CDT Respiratory Rate 16 06/25/2023 8:06 AM CDT Oxygen Saturation 95% 06/25/2023 8:0 6 AM CDT Inhaled Oxygen Concentration - - Weight 81.6 kg (180 lb) 06/20/2023 3:11 PM CDT Height 172.7 cm (5' 8 ) 06/20/2023 3:11 PM CDT Body Mass Index 27.37 06/20/2023 3:11 PM CDT Plan of Treatment Health Maintenance Due Date Last Done Comments Colorectal Cancer Screening Colonoscopy (10 Years) 1953 Hepatitis C 1971 Zoster Vaccines (1 of 2) 2003 Annual Medicare Wellness Visit 2018 COVID-19 Vaccine ( - 2023-2 5 season) 2024 DTaP, Tdap and Td Vaccines ( 2 - Td or Tdap) 01/08/2028 01/07/2018 RSV Immunization or 60+ Years (1 - 1-dose 75+ series) 01/28/2028 Pneumococcal Vaccine: 50+ Years Completed 12/12/2021, 07/28/2019, 07/08/2018 Meningococcal B Vaccine Aged Out No l onger eligible based on patient's age to complete this topic Meningococcal Vaccine Aged Out No jasmine anthony eligible based on patient's age to complete this topic RSV Immunizations Under 20 Months Aged Out No longer eligible b ased on patient's age to complete this topic Medical Devices Implanted Type Area Research Manager Device Identifier Shelf Expiration Date Model / Serial / Lot Nail Synthes Tfna Ti Perry 10 X 170mm 125 Deg - [id number] Implanted:Qty: 1 on 06/22/2023 by All Oconnell MD at [facility] Nail Left: Hip SYNTHES 05/07/2033 [id number] / / [id number] Tfna Fenestrated Screw 85 Mm Implanted:Qty: 1 on 06/22/2023 by All Oconnell MD at [facility] Left: Hip DEPUY SYNTHES 01/05/2033 [id number] S / / [id number] Locking Screw 5 Mm/32mm Implanted:Qty: 1 on 06/22/2023 by All Oconnell MD at [facility] Left: Hip DEPUY SYNTHES 04/06/2031 [id number] S / / [id number] Explanted Type Area Research Manager Device Identifier Shelf Expiration Date Model / Serial / Lot 3.2 Mm Guide Wire Explanted:Qty: 2 on 06/22/[address] [facility] Left: Hip DEPUY SYNTHES [id number] / / 4.2 Mm Drill Bit Explanted:Qty: 1 on 06/22/[address] [facility] Left: Hip DEPUY SYNTHES 03.010.061 / / Insurance Advance Directives * Full Code (Latest Code Status on File) Date Activated Date Inactivated Comments 06/20/2023 3:23 PM 06/25/2023 2:24 PM Care Teams Placement Assistant Relationship Specialty Start Date End Date None, Provider, PCP - General UNKNOWN PHYSICIAN SPECIALTY 06/20/23
--- OUTSIDE RECORDS SUMMARY | 2025-02-18 12:20 | XMS_ITS ---
Author Organization Unknown Address [address] [place] [address] [phone] Phone Care Team Providers Care Certified Financial Planner Name Role Phone HAJA MARCH Attending Unavailable NO PCP Primary Unavailable Immunization Immunization Date Status Additional Notes Code Code System pneumococcal polysaccharide PPV23 12/12/2021 Completed 33 CVX Tdap 01/07/2018 Completed 115 CVX Pneumococcal conjugate PCV 13 07/08/2018 Completed 133 CVX Pneumococcal conjugate PCV 13 07/28/2019 Completed 133 CVX Results PELVIS W/UNI LT HIP 2/3 V - Completed: 09/07/2023 13:53 LOINC: EXAM DESCRIPTION: ? ? PELVIS W/UNI LT HIP 2/3 V REASON FOR STUDY: FOLLOW UP LEFT HIP SURGERY IN JUN 2023 HX RT HIP DEFORMITY SINCE FINDINGS: Three views submitted with comparison 06/20/2023. There has been interval reduction and nailing of an intertrochanteric proximal left femur fracture. The femoral head remains in articulation. There is [id number] left hip osteoarthritis. 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 IMPRESSION: ? ? Interval reduction and nailing of an intertrochanteric proximal left femur fracture. ? ? Wlyv-tu-[id number] left hip osteoarthritis. THIS IS AN ELECTRONICALLY VERIFIED FINAL REPORT 09/10/2023 1:38 PM - Electronically signed by Jeffrey Brock M.D. MF: [id number] Report ID: [id number] Reading Location: [id number] Social History Type Status Start Date End Date Code Code Syst em Sex Male Hospital Discharge Instructions Should you have any questions prior to discharge, please contact a member of your healthcare team. If you have left the hospital and have any questions, please contact your primary care physician. Reason For Referral No Data Found Plan of Treatment No Data Found Encounters Encounter Diagnosis Start Date Code Code Sys tem Displaced intertrochanteric fracture of left femur, subsequent encounter for closed fracture with routine healing 09/07/2023 SNOMED-CT Personal Care Team Section Performer Name Performer Role Active Date Inactive Da te Imaging Narrative Notes
--- OUTSIDE RECORDS SUMMARY | 2025-02-18 12:21 | XMS_ITS | Data Portability ---
Author Organization [facility] Address [address] [address] Care Team Providers Care Piler Name Role Phone CHACHA JERONIMO Primary Care Provider [phone] RADHA EPPS Primary Care Provider Unavailabl e Assessment Encounter Date Assessment Date Assessment LastModified by Organization Details LastModified Time 09/02/2024 09/02/2024 Coronary artery disease with history of PCI in 1999 in the setting of [place] at [facility] with incomplete database New left bundle-branch block Cardiomyopathy with chronic systolic and diastolic heart failure, LVEF 48% in June 27, 2023 Hypertension Type 2 diabetes Mixed hyperlipidemia Nicotine dependence RECOMMENDATIONS: Continue single antiplatelet therapy with aspirin 81 mg daily. BP suboptimal and attributes this to not having taken his blood pressure medicines today. Discussed at length regarding low-sodium diet, ambulatory blood pressure monitoring and optimal BP control for cardiovascular/cer ebrovascular /inguinal risk reduction. We will prescribe ambulatory blood pressure monitor. In light of cardiomyopathy and and resistant hypertension, initiate spironolactone 25 mg daily. Check echocardiogram to assess change in LVEF. Continue current dose of atorvastatin 40 mg daily for therapy of mixed hyperlipidemia with LDL close to goal. Nicotine cessation discussed at length and currently does not wish for pharmaceutical intervention. Continue current doses of carvedilol, benazepril, amlodipine and clonidine for antihypertensive management. We will consider weaning off clonidine at follow-up visits. Maintained on metformin and Jardiance for medical therapy of type 2 diabetes with hemoglobin A1c at goal. At follow-up visits we will consider addition of GLP 1 receptor agonist. We will request follow-up in approximately 4 weeks' time with home BP readings prior to consider ischemia evaluation with pharmacologic stress testing versus cardiac catheterization. [email or web address] Not available 09/02/2024 11:44:45 10/07/2024 10/07/2024 Chronic systolic and diastolic heart failure with LVEF 25% Coronary artery disease with remote PCI with incomplete database Resistant hypertension Mixed hyperlipidemia Nicotine dependence Left bundle-branch block Type 2 diabetes Plan: He will continue current maximally tolerated doses of carvedilol and benazepril for medical therapy of cardiomyopathy and BP control. He is currently not taking spironolactone and we will reinitiate spironolactone at 25 mg daily and check a follow-up basic metabolic panel in 2 weeks' time. We will continue Jardiance 10 mg daily for medical therapy of cardiomyopathy and glycemic management with remaining glycemic management per the expertise of his primary care team. We had a lengthy discussion regarding nicotine cessation and he currently declines pharmaceutical intervention. He has not been checking his blood pressure routinely and we recommended ambulatory blood pressure monitoring. He will continue current doses of clonidine and amlodipine for antihypertensive management. At follow-up visits we may consider addition of isosorbide mononitrate and hydralazine based on his home blood pressure readings. We reviewed risk of uncontrolled blood pressure including cardiovascular/cer ebrovascular/renal risk. We reviewed options of evaluation for coronary artery disease. We reviewed rationale, benefits, risks, alternatives of all request cardiac catheterization possible PCI and at the earliest at [facility] per his request. We will prescribe p.r.n. nitroglycerin with usage discussed. He will continue aspirin 81 mg daily. We reviewed warning signs to seek ER attention via EMS in the interim. In light of dilated cardiomyopathy with LV dysfunction, we will prescribe an external cardiac defibrillator after reviewing rationale, benefits, risks, alternatives. In light of his left bundle-branch block with sporadic palpitations, we will obtain a 30 day event monitor to assess for arrhythmogenic etiology of his symptoms. We will continue current dose of atorvastatin for management of mixed hyperlipidemia. We will request a close interval follow-up in approximately 4 weeks' time with results above-mentioned cardiac evaluation. [email or web address] Not available 10/07/2024 13:05:23 11/13/2024 11/13/2024 Multivessel coronary artery disease involving the proximal LAD and distal left main: Discussed options with patient and son. Referred to Cardiac surgery at [facility] after shared decision-making given high volume quaternary center. Continue dual antiplatelet therapy with aspirin and clopidogrel for now. ER precautions via EMS in case of chest pain, increasing dyspnea or other concerning symptoms reviewed. Chronic systolic and diastolic heart failure, LVEF 25%. Continue current therapies with carvedilol, benazepril, spironolactone and Jardiance. Clinically euvolemic LVEDP 15 on recent cardiac catheterization. LifeVest for primary prevention of sudden cardiac arrest. Hypertension Continue concomitant use of clonidine and amlodipine along with heart failure medical therapy as outlined above. Discussed with patient's son who plans to get her ambulatory blood pressure monitor today. Encouraged to reach out to us with home blood pressure readings if suboptimal for further medication titration in the interim. Mixed hyperlipidemia Continue atorvastatin 40 mg daily. LDL close to goal. We will plan follow-up after his evaluation with cardiac surgery. Encouraged to reach out to us for any questions or concerns in the interim. Diagnostics: Transthoracic echocardiogram, 10/06/2024: LVEF 25%, mild LV dilatation, no pulmonary hypertension, no significant valvular disease. 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 Gustafson, [facility], 11/10/2024: LM, distal left main 40-50% stenosis, diffusely heavily calcified proximal-mid LAD with large diagonal with 50% mid segment stenosis, ramus with nonobstructive disease, OM2 has 80-90% midsegment stenosis, distal left circumflex with 60% stenosis, mid RCA diffuse 60% stenosis and RPL with focal 80% stenosis, IFR RCA 0.85, IFR into proximal LAD 0.88 Labs: April 2024: Sodium 143, potassium 3.6, chloride 99, CO2 30, BUN 15, creatinine 0.92, HbA1c 5.6, LDL 66, HDL 40, triglycerides 106, LFTs normal 10/27/2024: Sodium 142, potassium 4.4, chloride 102, CO2 25, BUN 15, creatinine 1.01, HGB 18.4, WBC be 14.5, platelet 296 [email or web address] Not available 11/13/2024 15:53:09 12/05/2024 12/05/2024 Coronary artery disease : Patient has multivessel CAD involving distal left main, proximal LAD with heavily calcified vessel. He has been evaluated by Cardiac surgery but currently wishes for a 2nd opinion with the banner global marketing manager. We will refer him in an expedited fashion to Dr. Velasquez with [facility]. He will continue dual antiplatelet therapy with aspirin and clopidogrel. Red flag symptoms including need for p.r.n. nitroglycerin and EMS use discussed at length. CHF/Ischemic cardiomyopathy with LVEF 25% : Currently compensated. Continue current doses of carvedilol, benazepril, spironolactone and Jardiance. Use of LifeVest in the interim reinforced and currently wearing 1. Hypertension: Blood pressure is improved. Low-sodium diet and ambulatory blood pressure monitoring reinforced. Besides heart failure medical therapy continue current doses of amlodipine and clonidine. At follow-up visits we will consider deescalating clonidine if feasible. We will request a close interval follow-up in 4 weeks' time. [email or web address] Not available 12/05/2024 14:11:32 01/30/2025 01/30/2025 CAD: Status post comprehensive surgical revascularization. Single antiplatelet therapy with aspirin 81 mg daily. Paroxysmal atrial fibrillation: Postoperative. Resolved with amiodarone. Discussed with patient and son regarding elevated CHADS2 Vasc score but given postoperative nature of atrial fibrillation, we will await results of 30 day event monitor prior to shared decision-making regarding anticoagulation especially in light of recent GI bleed with gastric ulcer. CHF: Volume status has improved. Continue Jardiance, metoprolol succinate 50, losartan 25. Add Verquvo 2.5 daily to minimize risk of rehospitalization. Check follow-up CMP. Discussed regarding LifeVest for primary prevention of sudden cardiac arrest which he has returned and does not wish to resume using while being aware of risk of sudden cardiac arrest and associated complications. Hypertension: Patient currently also taking benazepril. We will discontinue to avoid interaction between TANI inhibitor and ARB. Heart failure medical therapy as above. Encouraged ambulatory blood pressure monitoring and reaching out to us with suboptimal numbers. Clonidine discontinued given low-normal blood pressures. GI bleed : He will be establishing with Epps soon. We will prescribe PPI b.i.d. till establishing with PCP. May benefit from GI evaluation to document resolution of ulcer with repeat EGD but will defer to PCP regarding the same. Plan follow-up 4 weeks with labs prior and p.r.n.. On behalf of the Cardiovascular Services at [facility], we appreciate the opportunity to participate in the care of your patient. Please feel free to reach out to us for any questions regarding your patient's cardiac care. Sukhwinder Orlando MD, [facility] Cardiology [email or web address] [id number] Not available 01/30/2025 16:14:06 Plan of Treatment Reminders Order Date Submit Date Provider Last Modified By Organization Details Last Modified Time Details Appointments ANY 15 2024 01:15P M Sukhwinder Orlando MD Not available Not available Not available ANY 30 2024 10:00A M DRAGAN CISNEROS- Not available Not available Not available Lab CBC [address] (Lab), [address] [place] [address], [id number], 01/30/2025 14:37:29 CMP, serum or plasma [address] (Lab), [address] [place] [address], [address], 01/30/2025 14:37:29 CMP, serum or plasma 2023 025 [facility] (Lab), [address] [place] [address], [id number], 02/03/2025 08:42:43 lipid panel, serum 2023 025 [facility] (Lab), [address] [place], [address], 02/03/2025 08:42:44 TSH, serum or plasma [address] [facility] (Lab), [address] [place] [address], [address], 09/24/2024 13:09:[address] [facility] (Lab), [address] [place], [address], 09/24/2024 13:09:15 lipid panel, serum [address] [facility] (Lab), [address] [place], [address], 09/24/2024 13:09:15 CMP, serum or plasma [address] [facility] (Lab), [address] [place], [address], 09/24/2024 13:09:15 HbA1c (hemoglob in A1c), blood [address] [facility] (Lab), [address] [place], [address], 09/24/2024 13:09:15 Referral intervent ional cardiolog y referral 2024 025 [facility] Ro Velasquez MD, [address] [facility], [address], [place], [address], 12/05/2024 10:46:17 [facility] vascular surgeon referral - MV CAD, please evaluate for CABG 2024 025 [facility] Carlyn Minaya MD, [address], [address], [place], [address], 11/13/2024 17:27:58 Procedures mobile cardiac telemetry (PROC) 2023 024 [email or web address] Not available 11/04/2024 09:56:42 Surgeries cardiac catheteri zation (SURG) 2023 025 [email or web address] [facility] (Cardiology), [address] [place] [address] , [place], [address], 11/17/2024 09:31:57 Imaging US, echocardi ogram, transthor acic, complete, w/ color flow 2023 [facility], [address], [place], [address], 11/13/2024 10:03:25 electroca rdiogram 2023 [email or web address] In-Office Order, Internal Use Only DO Not Attach Compendium DO Not Attach Compendium, Do Not Delete/merge, [id number] 09/02/2024 11:06:38 Medication Orders pantopraz ole 40 mg tablet,de layed release 2024 [facility], [address] [place] [address], [address], [place], [place], [id number], 01/30/2025 14:37:32 Verquvo 2.5 mg tablet 2024 025 [facility], [address] [place] [address], [address], [place], [place], [id number], 01/30/2025 14:37:30 Aldactone 25 mg tablet 2023 024 [facility], [address], [address], [place], [place], [id number], 10/07/2024 11:37:45 nitroglyc roberta 0.4 mg sublingua l tablet 2023 024 [facility]/Pharmacy #[id number], [address] [place], [address], 10/07/2024 11:37:46 Aldactone 25 mg tablet 2023 024 [facility], [address], [address], [place], [place], [id number], 10/07/2024 11:46:24 Patient TargetsNo targets recorded. Patient Instructions Encounter Date Encounter Id Patient Instructions Last Modified By Organization Details Last Modified Time 09/02/2024 [id number] smoking cessatio n counseling, greater than 3 minutes up to 10 minutes* [email or web address] Not available 09/02/2024 11:31:57 high blood pressure: care instructions [email or web address] Not available 09/02/2024 11:06:38 1. Start spironolactone 25 mg once a day 2. Lab work in about 3 weeks 3. Echocardiogram (heart ultrasound) 4. Follow up in about 4 weeks Not available 09/02/2024 11:04:15 10/07/2024 [id number] Quitting Tobacco : Care Instructions [email or web address] Not available 10/07/2024 11:37:43 high blood pressure: care instructions [email or web address] Not available 10/07/2024 11:37:44 learning about high blood pressure [email or web address] Not available 10/07/2024 11:37:43 low sodium diet (2,000 milligram): care instructions [email or web address] Not available 10/07/2024 11:37:44 12/05/2024 [id number] A healthy lifestyle: care instructions [email or web address] Not available 12/05/2024 10:27:37 01/30/2025 [id number] A healthy lifestyle: care instructions [email or web address] Not available 01/30/2025 16:14:39 Reason for Referral Cardiothoracic Vascular Surg maxim Referral for Coronary arteriosclerosis in ambler artery MV CAD, please evaluate for CABG Referring Physician: Sukhwinder [facility], Encounter Date: 11/13/2024 Interventional Cardiology Re ferrid for Coronary arteriosclerosis Referring Physician: Sukhwinder [facility], Encounter Date: 12/05/2024 Results Created Date Observation Date Name Description Value Unit Range Abnormal Flag Note LastModifiedBy Organization Detail LastModifiedTime 09/02/20 24 09/02/2024 elect mirella kategr am No observ ation record ed. SARITHA In-Office Order Internal Use Only DO Not Attach Compendium DO Not Attach Compendium, Do Not Delete/merge, [id number] 09/02/2024 11:26:02 09/02/20 24 elect rocar diogr am No observ ation record ed. [email or web address] Not Available 2023 11:51:51 11/12/19 25 mobil e cardi ac telem etry (PROC ) No observ ation record ed. [email or web address] Not Available 2024 10:02:08 11/13/19 25 US, echoc ardio gram, trans thora cic, compl ete, w/ color flow No observ ation record ed. [email or web address] [facility] [address], [place], [address], 11/13/2024 10:03:29 Result Notes None recorded. Problems Name Problem SNOMED Code Status Onset Date Resolution Date Notes Provider Name and Address Organization Details Recorded Time Type 2 diabetes mellitus 96791773 Active 2017 Chacha Jeronimo MD Attn: Augustine hamm,[address] [place] [address], [address], [facility] 2 10:54:26 Essential hypertens ion 79838833 Active 2017 Chacha Jeronimo MD Attn: Augustine hamm,[address] [place], [address], [facility] 2 10:54:26 Hyperlipi demia 44870082 Active 2017 Chacha Jeronimo MD Attn: Augustine hamm,[address] [place], [address], [facility] 2 10:54:26 Coronary arteriosc lerosis 66457591 Active 2017 s/p stent 06/2000 Chacha Jeronimo MD Attn: Augustine hamm,[address] [place], [address], [facility] 2 10:54:26 Smoker 75412464 Active 2017 LDCT 12/28-need 1 yr f/u ct Chacha Jeronimo MD Attn: Augustine hamm,[address] [place] [address], [address], [place] - [facility] 3 11:58:35 Liver function tests outside reference range 496631870 Active 2017 Chacha Jeronimo MD Attn: Augustine hamm,[address] [facility], [place], [address], [place] [facility] 2 10:54:25 Leukocyto sis 160015426 Active 2017 sees hematolog ist -s/p BM biopsy -neg Chacha Jeronimo MD Attn: Augustine hamm,[address] [facility], [place], [address], [place] [facility] 2 11:05:20 Congenita l leg length discrepan cy 086411295 Active 2020 Chacha Jeronimo MD Attn: Augustine hamm,[address] [facility], [place], [address], [place] [facility] 2 10:54:25 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 489890334 Active 2020 Chacha Jeronimo MD Attn: Augustine hamm,[address] [facility], [place], [address], [place] [facility] 2 10:54:25 CT of chest abnormal 762280971977 [address] 12/28- repeat in 1 year Chacha Jeronimo MD Attn: Augustine hamm,[address] [facility], [place], [address], [place] [facility] 3 09:14:38 History of hip fracture 265945158 Active 2022 of L/hip following fall 06/30 -s/p sx ORIF Chacha Jeronimo MD Attn: Augustine hamm,[address] [facility], [place], [address], [place] [facility] 3 14:19:41 Lesion of skin of nose 636312631239 02995 Active 2023 -basal cell cancer -sees derm Chacha Jeronimo MD Attn: Augustine hamm,[address] [facility], [place], [address], [place] - [facility] 4 13:26:52 Chronic combined systolic and diastolic heart failure 658440319996 100 Active 2023 Sukhwinder Orlando MD Attn: Augustine hamm,[address] [facility], [place], [address] [place] [address] SI 4 10:39:43 Notes:Some problems listed i n Documents: #[id number], #[id number] could not be added to this patient's chart. Please review these documents and add these problems to the patient's chart manually as needed. Problem Notes Documentation Provider Name and Address Organization Details Recorded Time Mechanical Engineer Consult Note : [facility] [address], [facility] [id number], Randall (id #[id number], : 1955) [facility] [address] [place] [address] Encounter Summary - Progress Note Date Printed: 09/02/2024 Documents sent via fax will include the followingmessage: This fax may contain sensitive and confidential personal health information that is being sent for the sole use of the intended recipient. Unintended recipients are directed to securely destroy any materials received. You are hereby notified that the unauthorized disclosure or other unlawful use of this fax or any personal health information is prohibited. To the extent patient information contained in this fax is subject to 42 CFR Part 2, this regulation prohibits unauthorized disclosure of these records. If you received this fax in error, please visit [email or web address] to notify the sender and confirm that the information will be destroyed. If you do not have internet access, please call to notify the sender and confirm that the information will be destroyed. Thank you for your attention and cooperation. [ID:[id number]] Patient Shaheen Headley (69yo, M) #[id number] 1955 Patient Demographics: Address [address] [place] [id number] Work Phone Encounter Notes: Encounter Reason/DateTransition of Care Encounter 09/02/2024 - [place] [facility] [place] of Present IllnessI am seeing this patient for the 1st time as a new cardiology consult. 69-year-old male history of coronary artery disease status post PCI in 1999 with incomplete database, type 2 diabetes, hypertension, mixed hyperlipidemia, nicotine dependence with lung nodule presenting to establish cardiac care in consultation from Dr. Jeronimo. Denies chest pain or pressure. Reports exertional dyspnea with NYHA class 2 symptoms. History of hip fracture in 2022. Denies palpitations, presyncope or syncope. Maintained on antihypertensive therapy as outlined with stable blood pressure. Denies bleeding diathesis on dual antiplatelet therapy. 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 Level of Distress: comfortable. Psychiatric:Mental Status: alert. Orientation: oriented to time, place, and person. Eyes:Lids and Conjunctivae: no xanthelasma or arcus senilis. ENMT:Lips, Teeth, and Gums: normal dentition. Neck:Neck: supple. Carotid Arteries: no bruits. Jugular Veins: normal jugular venous pressure. Lungs:Auscultation: no wheezing or rales and clear. Cardiovascular:Rate And Rhythm: regular. Heart Sounds: no rub or gallop and normal S1 and physiologically split S2. Abdomen:Inspection and Palpation: soft. Liver: non tender or no hepatomegaly. Musculoskeletal:Inspection: no pedal edema. Neurologic:Neurological: no recent neurological change. Skin:Nails: no clubbing. Assessment and Plan1. Coronary ycvmczvtbczchchvQ15.10: Atherosclerotic heart disease of ambler coronary artery without angina pectoris ELECTROCARDIOGRAM 2. Chronic combined systolic and diastolic heart vtajegbE98.42: Chronic combined systolic (congestive) and diastolic (congestive) heart failure US, ECHOCARDIOGRAM, TRANSTHORACIC, COMPLETE, W/ COLOR FLOWPlace of service: [facility] Procedure code: 92439 Authorization: [facility] (Medicare Replacement/Advantage - HMO) [place] [address] Aldactone 25 mg tablet -Take 1 tablet(s) every day by oral route. Qty: (90) tablet Refills: 1 Pharmacy: [facility] TSH, SERUM OR PLASMA - To be performed on or around 09/24/2024 CBC - To be performed on or around 09/24/2024 LIPID PANEL, SERUM - To be performed on or around 09/24/2024 CMP, SERUM OR PLASMA - To be performed on or around 09/24/2024 HBA1C (HEMOGLOBIN A1C), BLOOD - To be performed on or around 09/24/2024 3. Essential [id number]: Essential (primary) hypertension HIGH BLOOD PRESSURE: CARE INSTRUCTIONS 4. Mixed dkxwaglxdkeabpJ39.2: Mixed hyperlipidemia 5. Nicotine gwuaidxbqcQ48.200: Nicotine dependence, unspecified, uncomplicated SMOKING CESSATION COUNSELING, GREATER THAN 3 MINUTES UP TO 10 MINUTES* 6. Type 2 diabetes mellitus without nmssyzopecjiW57.9: Type 2 diabetes mellitus without complications DiscussionPatient Instructions1. Start spironolactone 25 mg once a day2. Lab work in about 3 weeks3. Echocardiogram (heart ultrasound)4. Follow up in about 4 weeks Return to Office DYLAN CISNEROS for ANY 30 at [facility] (Adult Med) on 12/25/2024 at 10:30 AM Patient Medical History: Allergies List Reviewed Allergies NKDA Medications Reviewed Medications NameDate Source Aldactone 25 mg tabletTake 1 tablet(s) every day by oral route.09/02/24 prescribed Sukhwinder Orlando MD amLODIPine 10 mg tabletTAKE 1 TABLET BY MOUTH DAILY07/31/24 filled surescripts Aspir-81po 1 tab daily03/11/18 entered Chacha Jeronimo MD atorvastatin 40 mg tabletTAKE 1 TABLET BY MOUTH DAILY07/12/24 filled surescripts benazepriL 40 mg tabletTAKE 1 TABLET BY MOUTH DAILY07/31/24 filled surescripts carvediloL 25 mg tabletTAKE 1 TABLET BY MOUTH TWICE DAILY06/26/24 filled surescripts cloNIDine HCL 0.2 mg tabletTAKE 2 TABLETS BY MOUTH 2 TIMES DAILY01/22/23 renewed Chacha Jeronimo MD clopidogreL 75 mg tabletTAKE 1 TABLET BY MOUTH ONCE DAILY07/31/24 filled surescripts Co Q- entered Thu Andrade RN Jardiance 10 mg tabletTAKE 1 TABLET BY MOUTH ONCE DAILY07/13/24 filled surescripts metFORMIN 500 mg tabletTAKE 1 TABLET BY MOUTH ONCE DAILY08/21/24 renewed Chacha Jeronimo MD Multivitamin 50 Plus tabletTake by oral route.09/02/24 entered Thu Andrade RN Family HistoryFamily History not reviewed (last reviewed 08/25/2024) Mother - Hypercholesterolemia - Hypertensive disorder - Heart murmur Father - Hypertensive disorder - Diabetes mellitus Past Medical History Anemia N Asthma N Atrial Fibrillation N COPD N Cancer N Coronary Artery Disease N Depression N DiabetesY High Blood PressureY High CholesterolY Liver Disease N Other N Stroke N Vaccine HistoryVaccines not reviewed (last reviewed 08/25/2024) Vaccine Type Date Amt. Route Site [facility] Lot # Mfr. Exp. Date VIS VIS Given Highway [employer] Helper Diphtheria, Tetanus, Pertussis Tdap 01/07/18 0.5 mL Intramuscular Deltoid, Right 5H2H2 GlaxoSmithKline 09/20/19 Tdap 12/01/2014 01/07/18 Daly Muniz Pneumococcal pneumococcal polysaccharide PPV23 12/12/21 0.5 mL Intramuscular Deltoid, Right [id number] Merck and Co., Inc. 06/20/22 PPSV23 08/06/2019 12/12/21 Daly Muniz MA pneumococcal conjugate PCV 13 07/28/19 0.5 mL Intramuscular Deltoid, Right [id number] Pfizer, Inc 09/06/21 PCV 13 08/12/2015 07/28/19 KENDELL Barba pneumococcal conjugate PCV 13 07/08/18 0.5 mL Intramuscular Deltoid, Right [id number] Pfizer, Inc 02/05/20 PCV 13 08/12/2015 07/08/18 Daly Muniz PT declined flu shot and covid shot 04/21/22 Electronically Signed by: SUKHWINDER ORLANDO MD Daly Muniz MA null, [place] - [facility] 09/02/2024 13:00:46 Mechanical Engineer Consult Note : [facility] [address], [facility] [address]MQGQKVIFY, Randall (id #[id number], : 1955) [facility] [address] [place] [address] Encounter Summary - Progress Note Date Printed: 10/07/2024 Documents sent via fax will include the followingmessage: This fax may contain sensitive and confidential personal health information that is being sent for the sole use of the intended recipient. Unintended recipients are directed to securely destroy any materials received. You are hereby notified that the unauthorized disclosure or other unlawful use of this fax or any personal health information is prohibited. To the extent patient information contained in this fax is subject to 42 CFR Part 2, this regulation prohibits unauthorized disclosure of these records. If you received this fax in error, please visit [email or web address] to notify the sender and confirm that the information will be destroyed. If you do not have internet access, please call to notify the sender and confirm that the information will be destroyed. Thank you for your attention and cooperation. [ID:[id number]] Patient Shaheen Headley (69yo, M) #[id number] 1955 Patient Demographics: Address [address] [place] [address] Work Phone Encounter Notes: Encounter Reason/DateNone recorded 10/07/2024 - 09:45[facility] History of Present [id number] male history of coronary artery disease status post PCI in 1999 with incomplete database, type 2 diabetes, hypertension, mixed hyperlipidemia, nicotine dependence with lung nodule presents for follow-up. Interval history: Since last visit has been noticing episodes of dyspnea. Denies chest pain or pressure. Has not been checking blood pressure regularly at home. Denies bleeding diathesis. Denies presyncope or syncope. Reports sporadic palpitations with no triggers.Reports NYHA class 3 symptoms. 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 10:03 am BP: 150/9010/07/2024 10:06 am Pulse: 93 bpm10/07/2024 10:04 am O2Sat: 100%10/07/2024 10:05 am Results/InterpretationsNone recorded Physical ExamConstitutional:General Appearance: well-nourished and well-developed. Level of Distress: comfortable. Psychiatric:Mental Status: alert. Orientation: oriented to time, place, and person. Lungs:Auscultation: no wheezing or rales and clear. Cardiovascular:Rate And Rhythm: regular. Heart Sounds: no rub or gallop and normal S1 and physiologically split S2. Musculoskeletal:Inspection: no pedal edema. Neurologic:Neurological: no recent neurological change. Skin:Nails: no clubbing. Assessment and PlanChronic systolic and diastolic heart failure with LVEF 25% Coronary artery disease with remote PCI with incomplete database Resistant hypertension Mixed hyperlipidemia Nicotine dependence Left bundle-branch block Type 2 diabetes Plan:He will continue current maximally tolerated doses of carvedilol and benazepril for medical therapy of cardiomyopathy and BP control. He is currently not taking spironolactone and we will reinitiate spironolactone at 25 mg daily and check a follow-up basic metabolic panel in 2 weeks' time. We will continue Jardiance 10 mg daily for medical therapy of cardiomyopathy and glycemic management with remaining glycemic management per the expertise of his primary care team. We had a lengthy discussion regarding nicotine cessation and he currently declines pharmaceutical intervention. He has not been checking his blood pressure routinely and we recommended ambulatory blood pressure monitoring. He will continue current doses of clonidine and amlodipine for antihypertensive management. At follow-up visits we may consider addition of isosorbide mononitrate and hydralazine based on his home blood pressure readings. We reviewed risk of uncontrolled blood pressure including cardiovascular/cerebrovascular/ renal risk. We reviewed options of evaluation for coronary artery disease. We reviewed rationale, benefits, risks, alternatives of all request cardiac catheterization possible PCI and at the earliest at [facility] per his request. We will prescribe p.r.n. nitroglycerin with usage discussed. He will continue aspirin 81 mg daily. We reviewed warning signs to seek ER attention via EMS in the interim. In light of dilated cardiomyopathy with LV dysfunction, we will prescribe an external cardiac defibrillator after reviewing rationale, benefits, risks, alternatives. In light of his left bundle-branch block with sporadic palpitations, we will obtain a 30 day event monitor to assess for arrhythmogenic etiology of his symptoms. We will continue current dose of atorvastatin for management of mixed hyperlipidemia. We will request a close interval follow-up in approximately 4 weeks' time with results above-mentioned cardiac evaluation. 1. Nicotine zxaclvjkuqX70.200: Nicotine dependence, unspecified, uncomplicated QUITTING TOBACCO: CARE INSTRUCTIONS 2. Chronic combined systolic and diastolic heart vqabifyR37.42: Chronic combined systolic (congestive) and diastolic (congestive) heart failure Aldactone 25 mg tablet - Take 1 tablet(s) every day by oral route. Qty: (90) tablet Refills: 1 Pharmacy: [facility] - Use as directed. Qty: 1 Unit Refills: 0 Supplier: N/A CARDIAC CATHETERIZATION (SURG) - Note to Provider: Cath with Dr. Gustafson for CHF/CAD Weight (lbs): 186 Procedure code: 72015, 54234, 21303, 37287, 70047, 77183, 06629, 53378, 73104, 03243 CMP, SERUM OR PLASMA - To be performed on or around 10/21/2024 LIPID PANEL, SERUM - To be performed on or around 10/21/2024 3. RekaaudzqhatI65.2: Palpitations MOBILE CARDIAC TELEMETRY (PROC) Time of Procedure: [address] of service: OFFICE Procedure code: 83984, 98028 Authorization: [employer] (Medicare Replacement/Advantage - HMO) [place] [address], [address] 4. Coronary ihjnubzxoumbsxncA82.10: Atherosclerotic heart disease of ambler coronary artery without angina pectoris nitroglycerin 0.4 mg sublingual tablet - Place 1 tablet(s) by sublingual route as needed, for chest pain. Qty: (30) tablet Refills: 0 Pharmacy: [facility] #[id number] 5. Essential uqplmvjemfaaA14: Essential (primary) hypertension HIGH BLOOD PRESSURE: CARE INSTRUCTIONS LEARNING ABOUT HIGH BLOOD PRESSURE LOW SODIUM DIET (2,000 MILLIGRAM): CARE INSTRUCTIONS Return to Office Sukhwinder [place] [facility] [place] [facility]24 at 01:30 PM DYLAN CISNEROS for ANY 30 at [facility] on 12/25/2024 at 10:30 AM Patient Medical History: Allergies List Reviewed Allergies NKDA Medications Reviewed Medications NameDate Source Aldactone 25 mg tabletTake 1 tablet(s) every day by oral route.10/07/24 prescribed Sukhwinder Orlando MD amLODIPine 10 mg tabletTAKE 1 TABLET BY MOUTH DAILY10/02/24 filled surescripts Aspir-81po 1 tab daily03/11/18 entered Chacha Jeronimo MD atorvastatin 40 mg tabletTAKE 1 TABLET BY MOUTH DAILY09/20/24 filled surescripts benazepriL 40 mg tabletTAKE 1 TABLET BY MOUTH DAILY10/02/24 filled surescripts carvediloL 25 mg tabletTAKE 1 TABLET BY MOUTH TWICE DAILY10/02/24 filled surescripts cloNIDine HCL 0.2 mg tabletTAKE 2 TABLETS BY MOUTH 2 TIMES DAILY Internal Note:1 tab tid01/22/23 renewed Chacha Jeronimo MD Co Q- entered Thu Andrade RN Jardiance 10 mg tabletTAKE 1 TABLET BY MOUTH ONCE DAILY09/16/24 renewed Chacha Jeronimo MD metFORMIN 500 mg tabletTAKE 1 TABLET BY MOUTH ONCE DAILY08/21/24 renewed Chacha Jeronimo MD Multivitamin 50 Plus tabletTake by oral route.09/02/24 entered Thu Andrade RN nitroglycerin 0.4 mg sublingual tabletPlace 1 tablet(s) by sublingual route as needed, for chest pain.10/07/24 prescribed Sukhwinder Orlando MD Family HistoryFamily History not reviewed (last reviewed 08/25/2024) Mother - Hypercholesterolemia - Hypertensive disorder - Heart murmur Father - Hypertensive disorder - Diabetes mellitus Past Medical HistoryPast Medical History not reviewed (last reviewed 09/02/2024) Diabetes:Y High Blood Pressure:Y High Cholesterol:Y Vaccine HistoryVaccines not reviewed (last reviewed 08/25/2024) Vaccine Type Date Amt. Route Site [facility] Lot # Mfr. Exp. Date VIS VIS Given Highway [employer] Diphtheria, Tetanus, Pertussis Tdap 01/07/18 0.5 mL Intramuscular Deltoid, Right 5H2H2 GlaxoSmithKline 09/20/19 Tdap 12/01/2014 01/07/18 Dlay Muniz Pneumococcal pneumococcal polysaccharide PPV23 12/12/21 0.5 mL Intramuscular Deltoid, Right [id number] Merck and Co., Inc. 06/20/22 PPSV23 08/06/2019 12/12/21 Daly Muniz MA pneumococcal conjugate PCV 13 07/28/19 0.5 mL Intramuscular Deltoid, Right [id number] Pfizer, Inc 09/06/21 PCV 13 08/12/2015 07/28/19 KENDELL Barba pneumococcal conjugate PCV 13 07/08/18 0.5 mL Intramuscular Deltoid, Right [id number] [employer] 02/05/20 PCV 13 08/12/2015 07/08/18 Daly Muniz PT declined flu shot and covid shot 04/21/22 Electronically Signed by: SUKHWINDER ORLANDO MD ANNA Guerrero [place] - [facility] 10/09/2024 18:16:02 Consult Note : [facility] [address], [place] [address]OACBSGCAC, Randall (id #[id number], : 1955) [facility] [address] [place] [address] Encounter Summary - Progress Note Date Printed: 11/13/2024 Documents sent via fax will include the followingmessage: This fax may contain sensitive and confidential personal health information that is being sent for the sole use of the intended recipient. Unintended recipients are directed to securely destroy any materials received. You are hereby notified that the unauthorized disclosure or other unlawful use of this fax or any personal health information is prohibited. To the extent patient information contained in this fax is subject to 42 CFR Part 2, this regulation prohibits unauthorized disclosure of these records. If you received this fax in error, please visit [email or web address] to notify the sender and confirm that the information will be destroyed. If you do not have internet access, please call to notify the sender and confirm that the information will be destroyed. Thank you for your attention and cooperation. [ID:[id number]] Patient Shaheen Headley (69yo, M) #[id number] 1955 Patient Demographics: Address [address] [place] [address] Work Phone Encounter Notes: Encounter Reason/Date coronary artery disease unsure if he is taking plavix 11/13/2024 - [place] [facility] [place] of Present [id number] male history of coronary artery disease status post PCI in 1999 with incomplete database, type 2 diabetes, hypertension, mixed hyperlipidemia, nicotine dependence with lung nodule presents for follow-up. Echocardiogram September 26, 2024 with EF 45%. Cardiac catheterization 11/10/2024 with multivessel CAD involving proximal LAD. Interval history: Presents for post catheterization follow-up. Accompanied by son. Reports NYHA class 2-3 symptoms. Activity limited due to back pain. No chest pain or pressure. Wearing LifeVest with no ICD discharges. Denies palpitations, presyncope or syncope. Home blood pressures in the 130s by 80s range Diagnostics:Transthoracic echocardiogram, 10/06/2024:LVEF 25%, mild LV dilatation, no pulmonary hypertension, no significant valvular disease. 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 Gustafson, [facility], 11/10/2024:LM, distal left main 40-50% stenosis, diffusely heavily calcified proximal-mid LAD with large diagonal with 50% mid segment stenosis, ramus with nonobstructive disease, OM2 has 80-90% midsegment stenosis, distal left circumflex with 60% stenosis, mid RCA diffuse 60% stenosis and RPL with focal 80% stenosis, IFR RCA 0.85, IFR into proximal LAD 0.88 Labs:April 2024: Sodium 143, potassium 3.6, chloride 99, CO2 30, BUN 15, creatinine 0.92, HbA1c 5.6, LDL 66, HDL 40, triglycerides 106, LFTs npuvwu7110/27/2024: Sodium 142, potassium 4.4, chloride 102, CO2 25, BUN 15, creatinine 1.01, HGB 18.4, WBC be 14.5, platelet 296 Review of SystemsROS as noted in the HPI Vitals Ht: 5 ft 8 in11/13/2024 01:55 pm Wt: 187 lbs11/13/2024 01:55 pm BMI: 28.402 01:55 pm BP: 140/8611/13/2024 02:04 pm Pulse: 93 bpm11/13/2024 01:56 pm O2Sat: 96%11/13/2024 01:56 pm Results/InterpretationsNone recorded Physical ExamConstitutional:General Appearance: well-nourished and well-developed. Level of Distress: comfortable. ENMT:Lips, Teeth, and Gums: normal dentition. Lungs:Auscultation: no wheezing or rales and clear. Cardiovascular:Rate And Rhythm: regular. Heart Sounds: no rub or gallop and normal S1 and physiologically split S2;right distal radial cardiac catheterization access site with no hematoma. Skin:Nails: no clubbing. Assessment and PlanMultivessel coronary artery disease involving the proximal LAD and distal left main:Discussed options with patient and son. Referred to Cardiac surgery at [facility] after shared decision-making given high volume quaternary center. Continue dual antiplatelet therapy with aspirin and clopidogrel for now. ER precautions via EMS in case of chest pain, increasing dyspnea or other concerning symptoms reviewed. Chronic systolic and diastolic heart failure, LVEF 25%.Continue current therapies with carvedilol, benazepril, spironolactone and Jardiance. Clinically euvolemic LVEDP 15 on recent cardiac catheterization. LifeVest for primary prevention of sudden cardiac arrest. HypertensionContinue concomitant use of clonidine and amlodipine along with heart failure medical therapy as outlined above. Discussed with patient's son who plans to get her ambulatory blood pressure monitor today. Encouraged to reach out to us with chintan [id number]|2025-02-18 12:22:00|2025-02-18 12:20:00|XMS_ITS|BKG DAEMON|External Medical Summaries|[id number]|" Referral Summary Created on: February 18, 2025 Shaheen Headley : 1955 Sex: Male Author Organization 4 [facility] Address [address] [place] [phone] Care Team Providers Care Piler Name Role Phone Sukhwinder Orlando MD Unavailable Carlyn Minaya MD Unavailable Radha Epps NP Primary Care Provider Encounters Date Type Department Care Team Description 02/05/2025 Telephone [facility] [place] [address] [facility] [address] [place] [address] Raine Martinez EP-C cr follow up call 01/26/2025 [facility] Post Discharge Follow up phone call [facility] [address] [place] [address] Destiny Rausch RN 01/25/2025 9:50 AM CDT - 01/25/2025 11:59 PM CDT Hospital Encounter [facility] Cardiac Testing [address] [place] [address] [address] [address] Discharge Disposition: Discharge to home or self care 01/15/2025 2:33 PM CDT - 01/25/2025 11:50 AM CDT Hospital Encounter [address] [address] Brayden Hopkins MD Acute on chronic systolic heart failure (HCC) (Primary Dx); Pleural effusion [J90]; Melena; Paroxysmal atrial fibrillation (HCC) Discharge Disposition: Discharge to home or self care 01/19/2025 3:28 PM CDT Anesthesia Event [facility] GI Center [address] [place] [phone] Huang Hughes MD Toler, Mary Katherine, CRNA 01/19/2025 2:40 PM CDT - 01/19/2025 3:10 PM CDT Surgery [facility] [address] [place] [phone] Eric Neal MD EGD 01/15/2025 11:28 AM CDT - 01/15/2025 11:59 PM CDT Hospital Encounter [facility] Cardiac Testing [address] [place] [address] [address] [address] Acute on chronic systolic heart failure (HCC) Discharge Disposition: Discharge to home or self care 01/15/2025 10:01 AM CDT - 01/15/2025 11:59 PM CDT Hospital Encounter [facility] - Imaging [address] [place] [phone] Pleural effusion Discharge Disposition: Discharge to home or self care 01/15/2025 9:45 AM CDT Office Visit Cardiovascular and Thoracic Surgery [address] [facility] [address] [place] [address] Regina Guerrero NP Acute on chronic systolic heart failure (HCC) (Primary Dx) 01/13/2025 Orders Only [facility] Urology [address] [facility] [address] Office [address] [place] [address] Jeffrey Mackay MD Urinary tract infection without hematuria, site unspecified (Primary Dx) 01/09/2025 Telephone [facility] Surgery [address] [place] [address] Michelle James 01/02/2025 10:00 AM CDT Office Visit [facility] ([facility] [address] [facility] Advanced [facility] 11th [place] [address] [place] [address] Jeffrey Mackay MD Urinary retention (Primary Dx) 01/01/2025 Telephone [facility] Urology [address] [facility] [address] [place] [phone] Jeffrey Mackay MD 01/01/2025 Orders Only [facility]ovascular [facility] Thoracic Surgery [address] [facility] [address] [place] [address] Zuly Lynn RN Pleural effusion (Primary Dx) 12/22/2024 5:56 AM CDT - 12/31/2024 2:00 PM CDT Hospital Encounter [address] [phone] Carlyn Minaya MD Coronary artery disease due to calcified coronary lesion (Primary Dx); S/P CABG x 3 Discharge Disposition: Discharge to SNF 12/22/2024 6:45 AM CDT Ancillary Procedure [facility] Operating Room [address] [place] [phone] 12/22/2024 6:30 AM CDT Ancillary Procedure [facility] Operating Room [address] [place] [phone] 12/22/2024 7:30 AM CDT - 12/22/2024 12:30 PM CDT Surgery [facility] Operating Room [address] [place] [phone] Carlyn Minaya MD CORONARY ARTERY BYPASS GRAFT 12/22/2024 7:34 AM CDT Anesthesia Event [facility] Operating Room [address] [place] [phone] Cheng Prabhakar MD PhD Cloud, Bety Phipps MD 12/17/2024 1:15 PM CDT Lab [facility] Outpatient Lab [address] [place] [phone] Coronary artery disease involving ambler coronary artery of ambler heart with unstable angina pectoris (HCC); Pre-op evaluation; Type 2 diabetes mellitus with hyperglycemia, with long-term current use of insulin (HCC) 12/17/2024 12:11 PM CDT - 12/17/2024 11:59 PM CDT Hospital Encounter [facility] - Imaging [address] [place] [phone] Coronary artery disease involving ambler coronary artery of ambler heart with unstable angina pectoris (HCC); Pre-op evaluation; Type 2 diabetes mellitus with hyperglycemia, with long-term current use of insulin (HCC) Discharge Disposition: Discharge to home or self care 12/17/2024 11:18 AM CDT - 12/17/2024 11:59 PM CDT Hospital Encounter [facility] Vascular Lab [address] [place] [phone] Coronary artery disease involving ambler coronary artery of ambler heart with unstable angina pectoris (HCC); Pre-op evaluation; Type 2 diabetes mellitus with hyperglycemia, with long-term current use of insulin (HCC) Discharge Disposition: Discharge to home or self care 12/09/2024 Orders Only [facility] Thoracic Surgery [address] [place] [phone] Zuly Lynn RN Bilateral carotid artery stenosis (Primary Dx) 12/09/2024 Telephone [facility] Thor[facility] [address] [place] [phone] Carlyn Minaya MD Surgery Confirmation from Last 3 Months Allergies No known active allergies Medications aspirin 81 mg enteric coated tablet Take 1 tablet (81 mg total) by mouth daily Active empagliflozin (JARDIANCE) 10 mg tablet Take 1 tablet (10 mg total) by mouth daily Active spironolactone (ALDACTONE) 25 mg tablet Take 1 tablet (25 mg total) by mouth daily Active coenzyme Q10 10 mg capsule Take 1 capsule (10 mg total) by mouth daily Active atorvastatin (LIPITOR) 80 mg tablet Take 1 tablet (80 mg total) by mouth daily 5 026 Active metFORMIN (GLUCOPHAGE) 500 mg tablet Take 1 tablet (500 mg total) by mouth 2 (two) times a day with meals 5 026 Active Additional Information Patient taking differently:500 mg oral 2 times daily with meals (bkfst, dinner),Taking x1 daily, Reported on 01/15/2025 losartan (COZAAR) 25 mg tablet Take 1 tablet (25 mg total) by mouth daily 5 026 Active acetaminophen (TYLENOL) 325 mg tabletIndicatio ns:Fever,Pain Take 2 tablets (650 mg total) by mouth every 4 (four) hours as needed for pain 5 Active furosemide (LASIX) 20 mg tablet Take 1 tablet (20 mg total) by mouth daily 30 tablet 2 5 Active metoprolol XL (TOPROL-XL) 50 mg extended release tablet Take 1 tablet (50 mg total) by mouth 2 (two) times a day 60 tablet [address] (PROTONIX) 40 mg EC tabletIndicatio ns:GI Bleed Take 1 tablet (40 mg total) by mouth 2 (two) times a day 60 tablet 2 5 Active carvediloL (COREG) 25 mg tablet Take 1 tablet (25 mg total) by mouth 2 (two) times a day with meals 2 025 Discontin ued(Stop Taking at Discharge ) clopidogreL (PLAVIX) 75 mg tablet 2 025 Discontin ued(Stop Taking at Discharge ) potassium chloride ER (KLOR-CON) 20 mEq CR tablet Take 1 tablet (20 mEq total) by mouth daily 5 025 Discontin ued(Stop Taking at Discharge ) tamsulosin (FLOMAX) 0.4 mg extended release capsule Take 1 capsule (0.4 mg total) by mouth daily with dinner 5 025 Discontin ued(Stop Taking at Discharge ) traMADoL (ULTRAM) 50 mg tablet Take 1 tablet (50 mg total) by mouth every 6 (six) hours as needed for pain 5 025 Discontin ued(Stop Taking at Discharge ) dapagliflozin propanediol (Farxiga) 5 mg tablet Take 1 tablet (5 mg total) by mouth daily Discontin ued(Alter tobin therapy) nitroglycerin (NITROSTAT) 0.4 mg SL tablet Place 1 tablet (0.4 mg total) under the tongue every 5 (five) minutes as needed 4 025 Discontin ued(Stop Taking at Discharge ) Active Problems Problem Noted Date Diagnosed Date Moderate malnutrition 01/20/2025 Acute on chronic systolic heart failure 01/16/20 25 Pleural effusion 01/15/2025 Melena 01/15/2025 Coronary artery disease due to calcified coronar y lesion 12/22/2024 Chronic combined systolic (c ongestive) and diastolic (congestive) heart failure 10/14/2024 Coronary artery disease 10/14/2024 Immunizations Immunization Administration Dates Next Due Pneumococcal Conjugate PCV 13 07/28/2019, 018 Pneumococcal Polysaccharide PPV23 12/12/2021 Tdap 01/07/2018 Social History Tobacco Use Types Packs/Day Years Used Date Smoking Tobacco: Former Cigarettes 1.3 51.1 1 974 - 11/09/2024 Tobacco Cessation:Counseling Given: No [facility] [place] Utilities Answer Date Recorded In the past 12 months has [employer], gas, oil, or water company threatened to shut off services in your home? No 01/19/2025 Social Connection and Isolation Panel [NHANES] A nswer Date Recorded In a typical week, how many times do you talk on the phone with family, friends, or neighbors? Twice a week 01/19/2025 How often do you get together with friends or re latives? Twice a week 01/19/2025 How often do you attend gnosticist or hoahaoism serv ices? Never 01/19/2025 Do you belong to any clubs o r organizations such as gnosticist groups, unions, fraternal or athletic groups, or school groups? No 01/19/2025 How often do you attend meet ings of the clubs or organizations you belong to? Never 01/19/2025 Are you , , di vorced, , never , or living with a partner? 01/19/2025 AUDIT-C Answer Date Recorded Q1: How often do you have a drink containing alcohol? Never 12/22/2024 Q2: How many drinks containi ng alcohol do you have on a typical day when you are drinking? Patient does not drink Q3: How often do you have si x or more drinks on one occasion? Never 12/22/2024 Overall Financial Resource Strain (CARDIA) Answe r Date Recorded How hard is it for you to pa y for the very basics like food, housing, medical care, and heating? Not hard at all 01/19/2025 Hunger Vital Sign Answer Date Recorded Within the past 12 months, y ou worried that your food would run out before you got the money to buy more. Never true 01/20/20 25 Within the past 12 months, t he food you bought just didn't last and you didn't have money to get more. Never true 01/19/2025 PRAPARE - Transportation Answer Date Re corded In the past 12 months, has l ack of transportation kept you from medical appointments or from getting medications? No 01/06 In the past 12 months, has l ack of transportation kept you from meetings, work, or from getting things needed for daily living? No 01/19/2025 Housing Stability Vital Sign Answer Yang e Recorded In the last 12 months, was t here a time when you were not able to pay the mortgage or rent on time? No 01/19/2025 In the past 12 months, how m any times have you moved where you were living? 0 01/19/2025 At any time in the past 12 m [facility], were you homeless or living in a [place] facility (including now)? No 01/19/2025 Personal Safety Answer Date Recorded Have you ever been in or are you currently in a harmful physical or emotional relationship or is someone making you feel afraid or unsafe? Denies 01/15/2025 Sex and Gender Information Value Date Recorded Sex Assigned at Not on file Legal Sex Male 10:18 PM [employer] Gender Identity Not on file Sexual Orientation Not on file Last Filed Vital Signs Vital Sign Reading Time Taken Comments Blood Pressure 135/89 01/25/2025 7:48 AM CDT Pulse 89 01/25/2025 7:48 AM CDT Temperature 36.8 C (98.2 F) 01/25/2025 7:48 AM CDT Respiratory Rate 16 01/25/2025 7:48 AM CDT Oxygen Saturation 96% 01/25/2025 7:48 AM CDT Inhaled Oxygen Concentration - - Weight 79.2 kg (174 lb 9.7 oz) 01/24/2025 9:00 P M CDT Height 172.7 cm (5' 8 ) 01/15/2025 3:00 PM CDT Body Mass Index 26.55 01/15/2025 3:00 PM CDT Plan of Treatment Not on file Procedures Procedure Name Priority Date/Time Associated Diagnosis Comments POCT GLUCOSE DEVICE Routine 01/25/2025 7:47 AM CDT EGFR Routine 01/25/2025 1:44 AM CDT CBC WITHOUT DIFFERENTIAL Routine 025 1:44 AM CDT PHOSPHORUS Routine 01/25/2025 1:44 AM CDT BASIC METABOLIC PANEL Routine 01/25/2025 1:44 AM CDT POCT GLUCOSE DEVICE Routine 01/24/2025 8:21 PM CDT POCT GLUCOSE DEVICE Routine 01/24/2025 4:53 PM CDT POCT GLUCOSE DEVICE Routine 01/24/2025 11:54 AM CDT POCT GLUCOSE DEVICE Routine 01/24/2025 8:44 AM CDT EGFR Routine 01/24/2025 1:37 AM CDT CBC WITHOUT DIFFERENTIAL Routine 025 1:37 AM CDT PHOSPHORUS Routine 01/24/2025 1:37 AM CDT BASIC METABOLIC PANEL Routine 01/24/2025 1:37 AM CDT POCT GLUCOSE DEVICE Routine 01/23/2025 8:13 PM CDT POCT GLUCOSE DEVICE Routine 01/23/2025 5:33 PM CDT POCT GLUCOSE DEVICE Routine 01/23/2025 12:25 PM CDT ADD ON LAB TEST Add-On 01/23/2025 10:29 AM CDT POCT GLUCOSE DEVICE Routine 01/23/2025 7:52 AM CDT PRO B-TYPE NATRIURETIC PEPTIDE Routine 0 01/23/2025 12:46 AM CDT EGFR Routine 01/23/2025 12:46 AM CDT CBC WITHOUT DIFFERENTIAL Routine 025 12:46 AM CDT PHOSPHORUS Routine 01/23/2025 12:46 AM CDT BASIC METABOLIC PANEL Routine 01/23/2025 12:46 AM CDT POCT GLUCOSE DEVICE Routine 01/22/2025 8:42 PM CDT POCT GLUCOSE DEVICE Routine 01/22/2025 5:30 PM CDT POCT GLUCOSE DEVICE Routine 01/22/2025 12:20 PM CDT POCT GLUCOSE DEVICE Routine 01/22/2025 8:15 AM CDT EGFR Routine 01/22/2025 12:34 AM CDT CBC WITHOUT DIFFERENTIAL Routine 025 12:34 AM CDT PHOSPHORUS Routine 01/22/2025 12:34 AM CDT MAGNESIUM Routine 01/22/2025 12:34 AM CDT BASIC METABOLIC PANEL Routine 01/22/2025 12:34 AM CDT POCT GLUCOSE DEVICE Routine 01/21/2025 8:45 PM CDT POCT GLUCOSE DEVICE Routine 01/21/2025 5:50 PM CDT ECG 12-LEAD STAT 01/21/2025 1:08 PM CDT POCT GLUCOSE DEVICE Routine 01/21/2025 12:27 PM CDT CRITICAL CARE Routine 01/21/2025 6:52 AM CDT Acute on chronic systolic heart failure (HCC) XR CHEST 1 VIEW Timed 01/21/2025 6:30 AM CDT EGFR Routine 01/21/2025 12:06 AM CDT PHOSPHORUS Routine 01/21/2025 12:06 AM CDT MAGNESIUM Routine 01/21/2025 12:06 AM CDT BASIC METABOLIC PANEL Routine 01/21/2025 12:06 AM CDT CBC WITHOUT DIFFERENTIAL Timed 025 12:06 AM CDT CRITICAL CARE Routine 01/20/2025 10:26 PM CDT Acute on chronic systolic heart failure (HCC) POCT GLUCOSE DEVICE Routine 01/20/2025 8:23 PM CDT POCT GLUCOSE DEVICE Routine 01/20/2025 5:30 PM CDT DIFFERENTIAL AUTO Timed 01/20/2025 5:10 PM CDT LACTATE Timed 01/20/2025 5:10 PM CDT CBC WITH AUTO DIFFERENTIAL Timed 01/20 5:10 PM CDT TRANSTHORACIC ECHO (TTE) LIMITED/FOLLOW UP WO DOPPLER/CF WO CONTRAST Routine 01/20/2025 2:17 PM CDT POTASSIUM LEVEL Timed 01/20/2025 2:14 PM CDT TRANSFUSE RED BLOOD CELLS Timed 2024 1:01 PM CDT PREPARE RBC STAT 01/20/2025 12:10 PM CDT LACTATE Timed 01/20/2025 11:25 AM CDT CBC WITHOUT DIFFERENTIAL Timed 025 11:25 AM CDT POCT GLUCOSE DEVICE Routine 01/20/2025 11:20 AM CDT POCT GLUCOSE DEVICE Routine 01/20/2025 7:48 AM CDT CRITICAL CARE Routine 01/20/2025 7:03 AM CDT Pleural effusion [J90] XR CHEST 1 VIEW Timed 01/20/2025 6:39 AM CDT BASIC METABOLIC PANEL Routine 01/20/2025 5:40 AM CDT EGFR Routine 01/20/2025 5:40 AM CDT PHOSPHORUS Routine 01/20/2025 5:40 AM CDT MAGNESIUM Routine 01/20/2025 5:40 AM CDT LACTATE Routine 01/20/2025 5:40 AM CDT CBC WITHOUT DIFFERENTIAL Timed 025 5:40 AM CDT MAGNESIUM Routine 01/20/2025 12:04 AM CDT POTASSIUM LEVEL Routine 01/20/2025 12:04 AM CDT CBC WITHOUT DIFFERENTIAL Timed 025 12:04 AM CDT POCT GLUCOSE DEVICE Routine 01/19/2025 8:02 PM CDT CRITICAL CARE Routine 01/19/2025 7:49 PM CDT Pleural effusion [J90] POCT GLUCOSE DEVICE Routine 01/19/2025 5:49 PM CDT LACTATE STAT 01/19/2025 5:47 PM CDT CBC WITHOUT DIFFERENTIAL Timed 025 5:47 PM CDT CRITICAL CARE Routine 01/19/2025 4:55 PM CDT ESOPHAGOGASTRODUODENOSCOPY 01/19 3:32 PM CDT Melena TRANSFUSE RED BLOOD CELLS Timed 2024 3:00 PM CDT EGD 01/19/2025 2:34 PM CDT PREPARE RBC STAT 01/19/2025 2:07 PM CDT HEMOGLOBIN AND HEMATOCRIT Timed 2024 12:37 PM CDT XR CHEST 1 VIEW IP Routine 01/19/2025 12:22 PM CDT POCT GLUCOSE DEVICE Routine 01/19/2025 12:11 PM CDT ADD ON LAB TEST Add-On 01/19/2025 11:45 AM CDT BLOOD CULTURE Routine 01/19/2025 10:41 AM CDT TYPE AND SCREEN STAT 01/19/2025 8:52 AM CDT INEXSUFFLATOR COUGH MACHINE Routine 01/06 8:12 AM CDT INEXSUFFLATOR COUGH MACHINE Routine 01/06 8:12 AM CDT INEXSUFFLATOR COUGH MACHINE Routine 01/06 8:12 AM CDT PRO B-TYPE NATRIURETIC PEPTIDE STAT 0 01/19/2025 8:11 AM CDT EGFR STAT 01/19/2025 8:11 AM CDT BLOOD GAS, ARTERIAL STAT 01/19/2025 8:11 AM CDT LACTATE DEHYDROGENASE STAT 01/19/2025 8:11 AM CDT APTT STAT 01/19/2025 8:11 AM CDT PROTIME-INR STAT 01/19/2025 8:11 AM CDT COMPREHENSIVE METABOLIC PANEL STAT 8:11 AM CDT LACTATE STAT 01/19/2025 8:11 AM CDT OCCULT BLOOD GASTRIC Routine 01/19/2025 8:11 AM CDT C. DIFFICILE TESTING Routine 01/19/2025 8:11 AM CDT HEMOGLOBIN AND HEMATOCRIT STAT 2024 8:04 AM CDT POCT GLUCOSE DEVICE Routine 01/19/2025 7:48 AM CDT MANUAL DIFFERENTIAL STAT 01/19/2025 4:54 AM CDT CBC WITH AUTO DIFFERENTIAL STAT 01/19 4:54 AM CDT EGFR Routine 01/19/2025 12:18 AM CDT BASIC METABOLIC PANEL Routine 01/19/2025 12:18 AM CDT POCT GLUCOSE DEVICE Routine 01/18/2025 8:46 PM CDT POCT GLUCOSE DEVICE Routine 01/18/2025 5:36 PM CDT ECG 12-LEAD Routine 01/18/2025 1:05 PM CDT POCT GLUCOSE DEVICE Routine 01/18/2025 12:08 PM CDT POCT GLUCOSE DEVICE Routine 01/18/2025 6:45 AM CDT EGFR Routine 01/18/2025 1:00 AM CDT BASIC METABOLIC PANEL Routine 01/18/2025 1:00 AM CDT POCT GLUCOSE DEVICE Routine 01/17/2025 8:15 PM CDT POCT GLUCOSE DEVICE Routine 01/17/2025 5:19 PM CDT EGFR Routine 01/17/2025 1:06 PM CDT BASIC METABOLIC PANEL Routine 01/17/2025 1:06 PM CDT POCT GLUCOSE DEVICE Routine 01/17/2025 12:33 PM CDT POCT GLUCOSE DEVICE Routine 01/17/2025 6:50 AM CDT POCT GLUCOSE DEVICE Routine 01/16/2025 9:16 PM CDT POCT GLUCOSE DEVICE Routine 01/16/2025 5:04 PM CDT POCT GLUCOSE DEVICE Routine 01/16/2025 12:34 PM CDT ADD ON LAB TEST Add-On 01/16/2025 11:11 AM CDT POCT GLUCOSE DEVICE Routine 01/16/2025 8:23 AM CDT XR CHEST PA LATERAL 2 VIEWS IP Routine 01/06 8:10 AM CDT POCT GLUCOSE DEVICE Routine 01/15/2025 9:05 PM CDT URINALYSIS, MICROSCOPIC ONLY Routine 07/2025 5:37 PM CDT URINE CULTURE Routine 01/15/2025 5:37 PM CDT URINALYSIS AND REFLEX TO MICROSCOPIC AND CULTURE Routine 01/15/2025 5:37 PM CDT POCT GLUCOSE DEVICE Routine 01/15/2025 5:29 PM CDT IRON PROFILE W/ IBC Routine 01/15/2025 4:14 PM CDT LACTATE DEHYDROGENASE Routine 01/15/2025 4:14 PM CDT EGFR Routine 01/15/2025 4:14 PM CDT DIFFERENTIAL AUTO Routine 01/15/2025 4:14 PM CDT CBC WITH AUTO DIFFERENTIAL Routine 01/15 4:14 PM CDT PRO B-TYPE NATRIURETIC PEPTIDE Routine 0 01/15/2025 4:14 PM CDT MAGNESIUM Routine 01/15/2025 4:14 PM CDT COMPREHENSIVE METABOLIC PANEL Routine 4:14 PM CDT XR CHEST 1 VIEW ED Urgent/IP Urgent 01/15/2025 3:52 PM CDT CELL DIFFERENTIAL, BODY FLUID Routine 3:20 PM CDT CHOLESTEROL, PLEURAL FLUID Routine 01/15 3:20 PM CDT GLUCOSE, BODY FLUID Routine 01/15/2025 3:20 PM CDT LACTATE DEHYDROGENASE, BODY FLUID Routine 01/15/2025 3:20 PM CDT PROTEIN, BODY FLUID Routine 01/15/2025 3:20 PM CDT CELL COUNT W/REFLEX DIFFERENTIAL, BODY FLUID Routine 01/15/2025 3:20 PM CDT AEROBIC AND ANAEROBIC CULTUR E AND GRAM STAIN Routine 01/15/2025 3:20 PM CDT TRANSTHORACIC ECHO (TTE) COMPLETE W DOPPLER/CF W CONTRAST Routine 01/15/2025 1:23 PM CDT Acute on chronic systolic heart failure (HCC) XR CHEST PA LATERAL 2 VIEWS Schedule Routine, Read Routine (OP Routine) 01/15/2025 10:21 AM CDT Pleural effusion POCT GLUCOSE DEVICE Routine 12/31/2024 1:23 PM CDT POCT GLUCOSE DEVICE Routine 12/31/2024 12:13 PM CDT POCT GLUCOSE DEVICE Routine 12/31/2024 8:05 AM CDT XR CHEST 1 VIEW IP Routine 12/31/2024 6:03 AM CDT EGFR Routine 12/31/2024 12:30 AM CDT RENAL FUNCTION PANEL Routine 12/31/2024 12:30 AM CDT CBC WITHOUT DIFFERENTIAL Routine 025 12:30 AM CDT POCT GLUCOSE DEVICE Routine 12/30/2024 8:22 PM CDT POCT GLUCOSE DEVICE Routine 12/30/2024 5:13 PM CDT POCT GLUCOSE DEVICE Routine 12/30/2024 12:03 PM CDT POCT GLUCOSE DEVICE Routine 12/30/2024 8:16 AM CDT XR CHEST 1 VIEW IP Routine 12/30/2024 6:13 AM CDT EGFR Routine 12/30/2024 12:31 AM CDT RENAL FUNCTION PANEL Routine 12/30/2024 12:31 AM CDT CBC WITHOUT DIFFERENTIAL Routine 025 12:31 AM CDT POCT GLUCOSE DEVICE Routine 12/29/2024 9:01 PM CDT POCT GLUCOSE DEVICE Routine 12/29/2024 5:03 PM CDT TRANSTHORACIC ECHO (TTE) COMPLETE W DO
--- OUTSIDE RECORDS SUMMARY | 2025-02-18 12:23 | XMS_ITS | Clinical Summary ---
Author Organization [address] [place] [address] [place] [phone] Care Team Providers Care Decorating Supervisor Name Role Phone Richi Healy MD Unavailable Carlyn Minaya MD Unavailable [phone] Radha Epps NP Primary Care Provider Allergies No known active allergies Medications aspirin [...] tablet (5 mg total) by mouth daily 025 Discontin ued(Alter tobin therapy) nitroglycerin (NITROSTAT) 0.[address] 1 tablet (0.4 mg total) under the tongue every 5 (five) minutes as needed 4 025 Discontin ued(Stop Taking at Discharge ) Active Problems Problem Noted Date Diagnosed Date Moderate malnutrition 01/20/2025 Acute on chronic systolic heart failure 01/16/20 Pleural effusion 01/15/2025 Melena 01/15/2025 Coronary artery disease due to calcified coronar y lesion 12/22/2024 Chronic combined systolic (c ongestive) and diastolic (congestive) heart failure 10/14/2024 Coronary artery disease 10/14/2024 Encounters Date Type Department Care Team Description 02/05/2025 Telephone [facility] [place] [address] [facility] [address] [place] [phone] Raine Martinez EP-C cr follow up call 01/26/2025 [facility] Post Discharge Follow up phone call [address] [phone] Destiny Rausch RN 01/25/2025 9:50 AM CDT - 01/25/2025 11:59 PM CDT Hospital Encounter [facility] Cardiac Testing [address] [place] [phone] Discharge Disposition: Discharge to home or self care 01/19/2025 3:28 PM CDT Anesthesia Event [facility] GI Center [address] [place] [phone] Huang Hughes MD Toler, Mary Katherine, CRNA 01/19/2025 2:40 PM CDT - 01/19/2025 3:10 PM CDT Surgery [facility] [address] [place] [phone] Eric Neal MD EGAna 01/15/2025 2:33 PM CDT - 01/25/2025 11:50 AM CDT Hospital Encounter [address] [phone] Brayden Hopkins MD Acute on chronic systolic heart failure (HCC) (Primary Dx); Pleural effusion [J90]; Melena; Paroxysmal atrial fibrillation (HCC) Discharge Disposition: Discharge to home or self care 01/15/2025 11:28 AM CDT - 01/15/2025 11:59 PM CDT Hospital Encounter [facility] Cardiac Testing [address] [place] [address] [place] [phone] Acute on chronic systolic heart failure (HCC) Discharge Disposition: Discharge to home or self care 01/15/2025 10:01 AM CDT - 01/15/2025 11:59 PM CDT Hospital Encounter [facility] - Imaging [address] [place] [phone] Pleural effusion Discharge Disposition: Discharge to home or self care 01/15/2025 9:45 AM CDT Office Visit Cardiovascular and Thoracic Surgery [address] [facility] [address] [place] [phone] Regina Guerrero NP Acute on chronic systolic heart failure (HCC) (Primary Dx) 01/13/2025 Orders Only [facility] Urology [address] [facility] [address] [place] [phone] Jeffrey Mackay MD Urinary tract infection without hematuria, site unspecified (Primary Dx) 01/09/2025 Telephone [facility] Surgery [address] [place] [address] Michelle James 01/02/2025 10:00 AM CDT Office Visit [facility] ([facility] Urology [address] [facility] 11th [place] [address] [place] [address] Jeffrey Mackay MD Urinary retention (Primary Dx) 01/01/2025 Telephone [facility] Urology [address] [facility] [address] [place] [address] Jeffrey Mackay MD 01/01/2025 Orders Only [facility]ovascular [facility] Thoracic Surgery [address] [facility] [address] [place] [phone] Zuly Lynn RN Pleural effusion (Primary Dx) 12/22/2024 7:34 AM CDT Anesthesia Event [facility] Operating Room [address] [place] [phone] Cheng Prabhakar MD PhD Bety Cloud, MD 12/22/2024 7:30 AM CDT - 12/22/2024 12:30 PM CDT Surgery [facility] Operating Room [address] [place] [phone] Carlyn Minaya MD CORONARY ARTERY BYPASS GRAFT 12/22/2024 6:45 AM CDT Ancillary Procedure [facility] Operating Room [address] [place] [phone] 12/22/2024 6:30 AM CDT Ancillary Procedure [facility] Operating Room [address] [place] [phone] 12/22/2024 5:56 AM CDT - 12/31/2024 2:00 PM CDT Hospital Encounter [address] [phone] Carlyn Minaya MD Coronary artery disease due to calcified coronary lesion (Primary Dx); S/P CABG x 3 Discharge Disposition: Discharge to SNF 12/17/2024 1:15 PM CDT Lab [facility] Outpatient Lab [address] [place] [phone] Coronary artery disease involving washoe coronary artery of washoe heart with unstable angina pectoris (HCC); Pre-op evaluation; Type 2 diabetes mellitus with hyperglycemia, with long-term current use of insulin (HCC) 12/17/2024 12:11 PM CDT - 12/17/2024 11:59 PM CDT Hospital Encounter [facility] - Imaging [address] [place] [phone] Coronary artery disease involving washoe coronary artery of washoe heart with unstable angina pectoris (HCC); Pre-op evaluation; Type 2 diabetes mellitus with hyperglycemia, with long-term current use of insulin ([facility]) Discharge Disposition: Discharge to home or self care 12/17/2024 11:18 AM CDT - 12/17/2024 11:59 PM CDT Hospital Encounter [facility] Vascular Lab [address] [place] [phone] Coronary artery disease involving washoe coronary artery of washoe heart with unstable angina pectoris (HCC); Pre-op evaluation; Type 2 diabetes mellitus with hyperglycemia, with long-term current use of insulin (HCC) Discharge Disposition: Discharge to home or self care 12/09/2024 Orders Only Cardiovascular and Thoracic Surgery [address] [facility] [address] [place] [address] Zuly Lynn RN Bilateral carotid artery stenosis (Primary Dx) 12/09/2024 Telephone Cardiovascular and Thoracic Surgery [address] [facility] [address] [place] [address] Carlyn Minaya MD Surgery Confirmation from Last 3 Months Immunizations Immunization Administration Dates Next Due Pneumococcal Conjugate PCV 13 07/28/2019, 018 Pneumococcal Polysaccharide PPV23 12/12/2021 Tdap 01/07/2018 Surgical History Surgery Date Site/Laterality Comments COLONOSCOPY TOTAL HIP ARTHROPLASTY Left circa 2020 CARDIAC CATHETERIZATION 11/10/2024 N/A Procedure: LEFT HEART CATHETERIZATION WITH CORONARY ANGIOGRAPHY AND WITH OR WITHOUT LEFT VENTRICULOGRAM [id number]; Surgeon: Ed Gustafson MD; Location: [facility]; Service: Cardiovascular; Laterality: N/A; CARDIAC CATHETERIZATION 11/10/2024 N/A Procedure: Coronary Flow Velocity (CFR) / Instantaneous Flow Velocity (IFR), 1st Vessel; Surgeon: Ed Gustafson MD; Location: [facility]; Service: Cardiovascular; Laterality: N/A; CARDIAC CATHETERIZATION 11/10/2024 N/A Procedure: Coronary Flow Velocity (CFR) / Instantaneous Flow Velocity (IFR), Ea Addtn'l Vessel; Surgeon: Ed Gustafson MD; Location: [facility]; Service: Cardiovascular; Laterality: N/A; Medical History Medical History Date Comments Diabetes mellitus (HCC) Polycythemia Coronary artery disease Hypertension Family History Medical History Relation Name Comments Heart disease Mother rheumatic hear t diseasej/murmur Relation Name Status Comments Mother Social History Tobacco Use Types Packs/Day Years Used Date Smoking Tobacco: Former Cigarettes 1.3 51.1 1 974 - 11/09/2024 Tobacco Cessation:Counseling Given: No [facility] Utilities Answer Date Recorded In the past 12 months has th e electric, gas, oil, or water company threatened to [...] week 01/19/2025 How often do you attend judaism or caodaism serv ices? Never 01/19/2025 Do you belong to any clubs o r organizations such as judaism groups, unions, fraternal or athletic groups, or [...] any time in the past 12 m [facility], were you homeless or living in a longterm (including now)? No 01/19/2025 Personal Safety Answer Date Recorded Have you ever been in or are you currently in a harmful physical or emotional relationship or is someone making you feel afraid or unsafe? 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 Gender Identity Not on file Sexual Orientation Not on file Obstetrics History Last Filed Vital Signs Vital Sign Reading [...] 01/15/2025 3:00 PM CDT Plan of Treatment Health Maintenance Due Date Last Done Comments Albumin Creatinine Ratio, Urine 1953 Colon Cancer Screening-Colonoscopy 1955 Depression Screening 1953 Hepatitis C Screening 1953 Dilated Eye Exam 1953 Foot Exam 1953 Hepatitis B Screening 1971 Zoster Vaccine (1 of 2) 2003 Abdominal Aortic Aneurysm (A AA) Screen 2018 Well Visit 65+ 2018 Lung Cancer Screening 12/07/2023 12/06/2022, 022 Influenza Vaccine (Season Ended) 2025 Hemoglobin A1C 06/19/2025 12/17/2024 Lipid Panel 12/17/2025 12/17/2024 Fall Risk Assessment 01/25/2026 01/25/2025 eGFR 01/25/2026 01/25/2025, 04/06/2025, 01/23/2025, Additional history exists DTaP/Tdap/Td Vaccine (2 - Td or Tdap) 01/08/2028 01/07/2018 Pneumococcal vaccine 65+ Completed 022, 07/28/2019, 07/08/2018 Procedures Procedure Name Priority Date/Time Associated Diagnosis [...] Routine) 01/15/2025 10:21 AM CDT Pleural effusion [id number]|2025-02-18 12:24:00|2025-02-18 12:24:00|ED_ITS|[facility]|Health Information Management|[id number]|"HPI - SOB/Dyspnea General Chief Complaint: Shortness of Breath/Dyspnea Stated Complaint: ambulance Time Seen by Provider: 02/18/25 12:24 Source: EMS Mode of arrival: EMS Limitations: no limitations History of Present Illness HPI Narrative: 70-year-old male ex-smoker with a history of hypertension, diabetes mellitus, dyslipidemia, CAD status post CABG 1 month ago was brought in by EMS for 1 day history -- worsening shortness of breath no fever or chills. Denies chest pain or palpitation had left pleural effusion a few weeks ago which was drained. -- Profuse sweating EMS found him in severe respiratory distress with an oxygen saturation in the 40s. Subsequently he was placed on BiPAP with improvement of satjerzy MEYER elicited complaint: shortness of breath Onset (ago): day(s) ( 1 day) Timing: constant Severity: severe Exacerbating factors: nothing Relieving factors: nothing Associated symptoms: denies other symptoms Treatment prior to arrival: none and oxygen Related Data Home oxygen amount: none Home Medications Medication Instructions Recorded Confirmed Last Taken Type amlodipine 10 mg tablet 10 mg PO DAILY 06/20/23 06/20/23 Unknown History aspirin 81 mg tablet,delayed 81 mg PO DAILY 06/20/23 06/20/23 Unknown History release (Adult Low Dose Aspirin) benazepril 40 mg tablet 40 mg PO DAILY 06/20/23 06/20/23 Unknown History carvedilol 25 mg tablet 25 mg PO BID 06/20/23 06/20/23 Unknown History clonidine HCl 0.2 mg tablet 0.2 mg PO TID 06/20/23 06/20/23 Unknown History clopidogrel 75 mg tablet 75 mg PO DAILY 06/20/23 06/20/23 Unknown History empagliflozin 10 mg tablet 10 mg PO DAILY 06/20/23 06/20/23 Unknown History (Jardiance) metformin 1,000 mg tablet 1,000 mg PO DAILY 06/20/23 06/20/23 Unknown History simvastatin 20 mg tablet 20 mg PO DAILY 06/20/23 06/20/23 Unknown History Allergies Allergy/AdvReac Type Severity Reaction Status Date / Time No Known Allergies Allergy Verified 06/20/23 11:00 Review of Systems 2 Review of Systems: All systems reviewed & are unremarkable except as noted in HPI and below Constitutional: Constitutional: Reports as per HPI and Reports no additional constitutional complaints Eyes: Eyes: Reports as per HPI and Reports no additional eye complaints ENT: Reports system reviewed and no additional complaints, except as documented and Reports as per HPI Cardiovascular: Cardiovascular: Reports as per HPI and Reports no additional cardiovascular complaints Respiratory: Respiratory: Reports as per HPI, Reports no additional respiratory complaints and Reports dyspnea Gastrointestinal: Gastrointestinal: Reports as per HPI and Reports no additional gastrointestinal complaints Genitourinary: Genitourinary: Reports no additional male genitourinary complaints and Reports as per HPI Musculoskeletal: Musculoskeletal: Reports no additional musculoskeletal complaints and Reports as per HPI Integumentary/Breasts: Skin/Breast: Reports system reviewed and no additional complaints, except as docu and Reports as per HPI Neurologic: Reports system reviewed and no additional complaints, except as documented and Reports as per HPI Psychiatric: Psychiatric: Reports no additional psychiatric complaints and Reports as per HPI Endocrine: Endocrine: Reports no additional endocrine complaints and Reports as per HPI Hematologic/Lymphatic: Hematologic/Lymphatic: Reports no additional hematologic/lymphatic complaints and Reports as per HPI Allergic/Immunologic: Allergic/Immunologic: Reports no additional allergic/immunologic complaints and Reports as per HPI PMFSH Past Medical History Medical History (Updated 02/18/25 @ 16:29 by Kamlesh Tillman MD) CABG (coronary artery bypass graft) planned CHF (congestive heart failure) CAD (coronary artery disease) Diabetes mellitus Dyslipidemia Hypertension Exam 2 Narrative: pulse 85 blood pressure 192/115. Oxygen saturation of 99% on CPAP patient was in respiratory distress Const: General: ill appearing Nutritional Appearance: well nourished ( patient was in respiratory distress) Orientation/consciousness: patient oriented x3 Limitations: no limitations HENMT: Head: normal to inspection Ears: external ears normal F noah/Nose/Sinus: Normal external nose present Face and sinus: normal facial exam Mouth: Yes Normal oral and palatal mucosa present Throat: posterior oropharynx normal Eyes: Conjunctivae: conjunctivae normal Pupils: Equal, round and reactive pupils present EOM: EOMs intact bilaterally Direct Ophthalmoscopy: no photophobia Neck: Neck: normal visual inspection, no lymphadenopathy and no meningeal signs Chest: Chest palpation & inspection: normal inspection of the chest Resp: Effort & Inspection: normal respiratory effort Auscultation: rales and diminished lung sounds Cardio: Rate: tachycardic Rhythm: regular rhythm GI: GI Palp: Yes Soft to palpation Auscultation: normal bowel sounds O ther: no tenderness/ rigidity / rebound. : General: Yes no CVA tenderness Back/Spine/Pelvis: Back: no CVA tenderness Skin: General skin exam: normal color Rashes: no rashes Wounds: no wounds Neuro: General: patient oriented x3, moves all extremities, no meningeal signs, no focal motor deficits and CN's II-XI intact bilaterally Cranial nerves: Yes Nystagmus not present Speech: normal speech Gait exam (Neuro): Normal gait present Extrem: General: normal to inspection, no clubbing, cyanosis or edema and no pedal edema Psych: Mental Status: mental status grossly normal Affect: normal affect Attitude: cooperative Course Course Emergency Course: Acute hypoxic respiratory failure. Shortness of breath secondary to CHF exacerbation-- patient was in respiratory distress following which he was emergently intubated and placed on mechanical ventilation. patient received 40 mEq of [place] [address] chest x-ray revealed pulmonary edema and left pleural effusion. ABG was noted to be 723/41/272 / 99% on 100% FiO2 on the vent RSV/influenza/ COVID is negative. Blood cultures have been done. Positive D-dimer-- patient is due to get a CT of the chest to rule out PE Post intubation the patient was placed on propofol and was noted to have low blood pressure. The patient will be started on phenylephrine drip. acute renal failure with a BUN/creatinine of 15/1.45 with metabolic acidosis hyperglycemia with a blood sugar of 312 Urine is tox screen is negative. Vital Signs Vital signs: Vital Signs Pulse Rate 85 02/18/25 12:20 Respiratory Rate 21 H 02/18/25 12:20 Blood Pressure 192/115 H 02/18/25 12:20 Pulse Oximetry 99 02/18/25 12:20 Oxygen Delivery CPAP 02/18/25 12:20 Oxygen Flow Rate 15 02/18/25 12:20 Temperature 36.6 C 02/18/25 12:32 Pulse Rate 71 02/18/25 15:59 Respiratory Rate 16 02/18/25 15:59 Blood Pressure 150/98 H 02/18/25 15:19 Pulse Oximetry 99 02/18/25 15:16 Oxygen Delivery Mechanical Ventilation 02/18/25 15:16 Oxygen Flow Rate 15 02/18/25 12:20 Fraction of Inspired Oxygen 100 02/18/25 15:16 MDM - SOB/Dyspnea MDM Narrative Medical decision making narrative: acute hypoxic respiratory failure secondary to CHF exacerbation acute renal failure hyperglycemia Differential Diagnosis Differential diagnosis: Likely acute exacerbation of chronic obstructive airways disease, community acquired pneumonia and pulmonary embolism Medical Records Attestation: I reviewed the patient's medical records. Lab Data Attestation: I reviewed the patient's lab results. 02/18/25 12:36 02/18/25 12:36 Labs: Lab Results 02/18/25 02/18/25 02/18/25 Range/Units 12:28 12:36 13:18 WBC 14.8 H (4.8-10.8) K/mm3 RBC 5.32 (4.70-6.10) M/mm3 Hgb 15.1 (12.4-15.3) g/dL Hct 52.7 H (37.0-46.0) % MCV 99.1 (78.0-102.0) fL MCH 28.4 (27.0-31.0) pg MCHC 28.7 L (32-36) g/dL RDW 15.3 H (11.6-14.4) % Plt Count 373 (150-420) K/mm3 MPV 10.8 (8.7-11.0) fl Immature Gran % (Auto) 1.9 H (0.0-0.0) % Neut % (Auto) 61.7 (50.0-70.0) % Lymph % (Auto) 30.4 (18.0-42.0) % Sanders % (Auto) 3.9 (2.0-11.0) % Eos % (Auto) 1.3 (1.0-6.0) % Baso % (Auto) 0.8 (0.0-1.0) % Lymph # (Auto) 4.49 (1.10-4.50) K/mm3 Sanders # (Auto) 0.57 (0.10-0.90) K/mm3 Eos # (Auto) 0.19 (0.02-0.50) K/mm3 Baso # (Auto) 0.12 H (0.00-0.10) K/mm3 Abs Immat Gran (auto) 0.28 H (0.00-0.00) K/mm3 Absolute Neuts (auto) 9.12 H (1.70-7.20) K/mm3 Absolute Nucleated RBC 0.00 (0.00-0.00) K/mm3 Nucleated RBC % 0.0 (0-0.0) % PT 11.9 (9.50-12.1) Seconds INR 1.1 APTT 27.2 (23.9-30.70) Sec D-Dimer 10.55 H* (0.19-0.50) mg/L Minute Volume Not Reportable Vent Mode Not Reportable Expiratory Pressure 8 cmH2O Tidal Volume 500 ml PEEP Not Reportable Inspiratory Pressure 16 cmH2O Peak Inspir Pressure Not Reportable Pressure Support Not Reportable Sodium 146 H (137-145) mmol/L Potassium 4.1 (3.4-5.0) mmol/L Chloride 109 H (98-107) mmol/L Carbon Dioxide 16 L (22-30) mmol/L Anion Gap 21 H (4-12) mmol/L BUN 15 (9-20) mg/dL Creatinine 1.45 H (0.7-1.3) mg/dL Estim Creat Clear Calc Not Reportable Estimated GFR 48 L (59 - ) Glucose 312 H (65-110) mg/dL Calculated Osmolality 314 H (285-295) mOsm/kg Lactic Acid 10.8 H (0.4-2.0) mmol/L Calcium 8.4 (8.4-10.2) mg/dL Total Bilirubin 0.5 (0.2-1.3) mg/dL AST 58 (17-59) U/L ALT 34 (6-50) U/L Alkaline Phosphatase 115 (38-126) U/L Total Creatine Kinase 91 (55-170) U/L Troponin I 0.031 (0.000-0.034) ng/mL NT-Pro-B Natriuret Pep 47201 H (19.9-100) pg/mL Total Protein 7.1 (6.3-8.2) g/dL Albumin 3.9 (3.5-5.1) g/dL Triglycerides 161 H (<150) mg/dL TSH 7.250 H (0.465-4.680) uIU/mL Urine Color Light yellow (Yellow) Urine Appearance Clear (Clear) Urine pH 6.0 (5.0-8.0) Ur Specific [place] 1.010 (1.010-1.020) Urine Protein 1+ H (Negative) Urine Glucose (UA) Trace H (Negative) Urine Ketones Negative (Negative) Ur Blood (Man) 2+ H (Negative) Urine Nitrate Negative (Negative) Urine Bilirubin Negative (Negative) Urine Urobilinogen 0.2 (0.2-1.0) mg/dL Leukocyte Esterase Rfl Negative (Negative) TRINO/UL Urine RBC 3-5 H (0-2) /hpf Urine WBC 0-3 (0-3) /hpf Ur Squamous Epith Cells Few (Few) /hpf Urine Bacteria Trace (None) /hpf Urine Opiates Screen Negative (Negative) Urine Methadone Screen Negative (Negative) Ur Barbiturates Screen Negative (Negative) Ur Phencyclidine Scrn Negative (Negative) Ur Amphetamine Screen Negative (Negative) U Benzodiazepines Scrn Negative (Negative) Urine Cocaine Screen Negative (Negative) U Cannabinoids Screen Negative (Negative) Influenza A (RT-PCR) (Negative) Influenza B (RT-PCR) (Negative) RSV (RT-PCR) (Negative) SARS-CoV-2 RNA (RT-PCR) (Negative) 02/18/25 02/18/25 Range/Units 13:26 14:56 WBC (4.8-10.8) K/mm3 RBC (4.70-6.10) M/mm3 Hgb (12.4-15.3) g/dL Hct (37.0-46.0) % MCV (78.0-102.0) fL MCH (27.0-31.0) pg MCHC (32-36) g/dL RDW (11.6-14.4) % Plt Count (150-420) K/mm3 MPV (8.7-11.0) fl Immature Gran % (Auto) (0.0-0.0) % Neut % (Auto) (50.0-70.0) % Lymph % (Auto) (18.0-42.0) % Sanders % (Auto) (2.0-11.0) % Eos % (Auto) (1.0-6.0) % Baso % (Auto) (0.0-1.0) % Lymph # (Auto) (1.10-4.50) K/mm3 Sanders # (Auto) (0.10-0.90) K/mm3 Eos # (Auto) (0.02-0.50) K/mm3 Baso # (Auto) (0.00-0.10) K/mm3 Abs Immat Gran (auto) (0.00-0.00) K/mm3 Absolute Neuts (auto) (1.70-7.20) K/mm3 Absolute Nucleated RBC (0.00-0.00) K/mm3 Nucleated RBC % (0-0.0) % PT (9.50-12.1) Seconds INR APTT (23.9-30.70) Sec D-Dimer (0.19-0.50) mg/L Minute Volume Vent Mode Expiratory Pressure cmH2O Tidal Volume ml PEEP Inspiratory Pressure cmH2O Peak Inspir Pressure Pressure Support Sodium (137-145) mmol/L Potassium (3.4-5.0) mmol/L Chloride (98-107) mmol/L Carbon Dioxide (22-30) mmol/L Anion Gap (4-12) mmol/L BUN (9-20) mg/dL Creatinine (0.7-1.3) mg/dL Estim Creat Clear Calc Estimated GFR (59 - ) Glucose (65-110) mg/dL Calculated Osmolality (285-295) mOsm/kg Lactic Acid 2.1 H (0.4-2.0) mmol/L Calcium (8.4-10.2) mg/dL Total Bilirubin (0.2-1.3) mg/dL AST (17-59) U/L ALT (6-50) U/L Alkaline Phosphatase (38-126) U/L Total Creatine Kinase (55-170) U/L Troponin I (0.000-0.034) ng/mL NT-Pro-B Natriuret Pep (19.9-100) pg/mL Total Protein (6.3-8.2) g/dL Albumin (3.5-5.1) g/dL Triglycerides (<150) mg/dL TSH (0.465-4.680) uIU/mL Urine Color (Yellow) Urine Appearance (Clear) Urine pH (5.0-8.0) Ur Specific [place] (1.010-1.020) Urine Protein (Negative) Urine Glucose (UA) (Negative) Urine Ketones (Negative) Ur Blood (Man) (Negative) Urine Nitrate (Negative) Urine Bilirubin (Negative) Urine Urobilinogen (0.2-1.0) mg/dL Leukocyte Esterase Rfl (Negative) TRINO/UL Urine RBC (0-2) /hpf Urine WBC (0-3) /hpf Ur Squamous Epith Cells (Few) /hpf Urine Bacteria (None) /hpf Urine Opiates Screen (Negative) Urine Methadone Screen (Negative) Ur Barbiturates Screen (Negative) Ur Phencyclidine Scrn (Negative) Ur Amphetamine Screen (Negative) U Benzodiazepines Scrn (Negative) Urine Cocaine Screen (Negative) U Cannabinoids Screen (Negative) Influenza A (RT-PCR) Negative (Negative) Influenza B (RT-PCR) Negative (Negative) RSV (RT-PCR) Negative (Negative) SARS-CoV-2 RNA (RT-PCR) Negative (Negative) ABG Data ABG results: 02/18/25 02/18/25 12:36 13:18 Puncture Site Right radial Right radial ABG pH 7.19 L 7.23 L ABG pCO2 34.4 L 40.6 ABG pO2 93.4 H 272.2 H ABG HCO3 12.9 L 16.5 L ABG O2 Saturation 94.8 L 99.3 H ABG Base Excess -14.2 L -10.6 L Oxyhemoglobin 93.9 L 98.0 O2 Delivery Device Bipap Ventilator O2 Liters/Min 100.0 100.0 Vent Rate 18 ECG Data EKG #1: ECG completion date: 02/18/25 ECG completion time: 12:59 Interpretation: normal sinus rhythm. Normal axis. First-degree AV block. No ST elevation. ST depression and T inversion in inferior leads. Critical Care Time Critical Care Time Critical Care Time: Yes Total Critical Care Time: 70 Discharge Plan Discharge Clinical Impression: Acute hypoxemic respiratory failure CHF exacerbation Qualifiers: Heart failure type: unspecified Qualified Code(s): I50.9 - Heart failure, unspecified Acute renal failure Qualifiers: Acute renal failure type: unspecified Qualified Code(s): N17.9 - Acute kidney failure, unspecified Patient Disposition: Still a Patient Condition: Stable Additional Instructions: transfer the patient to [facility] ICU. Patient Language: Croatian Prescriptions: No Action clopidogrel 75 mg Tablet 75 mg PO DAILY aspirin [Adult Low Dose Aspirin] 81 mg Tablet,Delayed Release (Dr/Ec) 81 mg PO DAILY amlodipine 10 mg Tablet 10 mg PO DAILY simvastatin 20 mg Tablet 20 mg PO DAILY metformin 1,000 mg Tablet 1,000 mg PO DAILY benazepril 40 mg Tablet 40 mg PO DAILY Jardiance 10 mg Tablet 10 mg PO DAILY carvedilol 25 mg Tablet 25 mg PO BID Rx Instructions: must administer with a meal/food clonidine HCl 0.2 mg Tablet 0.2 mg PO TID Follow-up/Referrals: UNKNOWN,DOCTOR [Primary Care Provider] - Time of Disposition: 16:29 "
--- NOTE | 2025-02-18 12:24 | ED.SOB ---
HPI - SOB/Dyspnea General Chief Complaint: Shortness of Breath/Dyspnea Stated Complaint: ambulance Time Seen by Provider: 02/18/25 12:24 Source: EMS Mode of arrival: EMS Limitations: no limitations History of Present Illness HPI Narrative: 70-year-old male ex-smoker with a history of hypertension, diabetes mellitus, dyslipidemia, CAD status post CABG 1 month ago was brought in by EMS for 1 day history -- worsening shortness of breath no fever or chills. Denies chest pain or palpitation had left pleural effusion a few weeks ago which was drained. -- Profuse sweating EMS found him in severe respiratory distress with an oxygen saturation in the 40s. Subsequently he was placed on BiPAP with improvement of sats MD elicited complaint: shortness of breath Onset (ago): day(s) ( 1 day) Timing: constant Severity: severe Exacerbating factors: nothing Relieving factors: nothing Associated symptoms: denies other symptoms Treatment prior to arrival: none and oxygen Related Data Home oxygen amount: none Home Medications Medication Instructions Recorded Confirmed Last Taken Type amlodipine 10 mg tablet 10 mg PO DAILY 06/20/23 06/20/23 Unknown History aspirin 81 mg tablet,delayed 81 mg PO DAILY 06/20/23 06/20/23 Unknown History release (Adult Low Dose Aspirin) benazepril 40 mg tablet 40 mg PO DAILY 06/20/23 06/20/23 Unknown History carvedilol 25 mg tablet 25 mg PO BID 06/20/23 06/20/23 Unknown History clonidine HCl 0.2 mg tablet 0.2 mg PO TID 06/20/23 06/20/23 Unknown History clopidogrel 75 mg tablet 75 mg PO DAILY 06/20/23 06/20/23 Unknown History empagliflozin 10 mg tablet 10 mg PO DAILY 06/20/23 06/20/23 Unknown History (Jardiance) metformin 1,000 mg tablet 1,000 mg PO DAILY 06/20/23 06/20/23 Unknown History simvastatin 20 mg tablet 20 mg PO DAILY 06/20/23 06/20/23 Unknown History Allergies Allergy/AdvReac Type Severity Reaction Status Date / Time No Known Allergies Allergy Verified 06/20/23 11:00 Review of Systems Review of Systems: All systems reviewed & are unremarkable except as noted in HPI and below Constitutional: Constitutional: Reports as per HPI and Reports no additional constitutional complaints Eyes: Eyes: Reports as per HPI and Reports no additional eye complaints ENT: Reports system reviewed and no additional complaints, except as documented and Reports as per HPI Cardiovascular: Cardiovascular: Reports as per HPI and Reports no additional cardiovascular complaints Respiratory: Respiratory: Reports as per HPI, Reports no additional respiratory complaints and Reports dyspnea Gastrointestinal: Gastrointestinal: Reports as per HPI and Reports no additional gastrointestinal complaints Genitourinary: Genitourinary: Reports no additional male genitourinary complaints and Reports as per HPI Musculoskeletal: Musculoskeletal: Reports no additional musculoskeletal complaints and Reports as per HPI Integumentary/Breasts: Skin/Breast: Reports system reviewed and no additional complaints, except as docu and Reports as per HPI Neurologic: Reports system reviewed and no additional complaints, except as documented and Reports as per HPI Psychiatric: Psychiatric: Reports no additional psychiatric complaints and Reports as per HPI Endocrine: Endocrine: Reports no additional endocrine complaints and Reports as per HPI Hematologic/Lymphatic: Hematologic/Lymphatic: Reports no additional hematologic/lymphatic complaints and Reports as per HPI Allergic/Immunologic: Allergic/Immunologic: Reports no additional allergic/immunologic complaints and Reports as per HPI [facility] Past Medical History Medical History (Updated 02/18/25 @ 16:29 by Kamlesh Tillman MD) CABG (coronary artery bypass graft) planned CHF (congestive heart failure) CAD (coronary artery disease) Diabetes mellitus Dyslipidemia Hypertension Exam Narrative: pulse 85 blood pressure 192/115. Oxygen saturation of 99% on CPAP patient was in respiratory distress Const: General: ill appearing Nutritional Appearance: well nourished ( patient was in respiratory distress) Orientation/consciousness: patient oriented x3 Limitations: no limitations HENMT: Head: normal to inspection Ears: external ears normal Face/Nose/Sinus: Normal external nose present Face and sinus: normal facial exam Mouth: Yes Normal oral and palatal mucosa present Throat: posterior oropharynx normal Eyes: Conjunctivae: conjunctivae normal Pupils: Equal, round and reactive pupils present EOM: EOMs intact bilaterally Direct Ophthalmoscopy: no photophobia Neck: Neck: normal visual inspection, no lymphadenopathy and no meningeal signs Chest: Chest palpation & inspection: normal inspection of the chest Resp: Effort & Inspection: normal respiratory effort Auscultation: rales and diminished lung sounds Cardio: Rate: tachycardic Rhythm: regular rhythm GI: GI Palp: Yes Soft to palpation Auscultation: normal bowel sounds Other: no tenderness/ rigidity / rebound. : General: Yes no CVA tenderness Back/Spine/Pelvis: Back: no CVA tenderness Skin: General skin exam: normal color Rashes: no rashes Wounds: no wounds Neuro: General: patient oriented x3, moves all extremities, no meningeal signs, no focal motor deficits and CN's II-XI intact bilaterally Cranial nerves: Yes Nystagmus not present Speech: normal speech Gait exam (Neuro): Normal gait present Extrem: General: normal to inspection, no clubbing, cyanosis or edema and no pedal edema Psych: Mental Status: mental status grossly normal Affect: normal affect Attitude: cooperative Course Course Emergency Course: Acute hypoxic respiratory failure. Shortness of breath secondary to CHF exacerbation-- patient was in respiratory distress following which he was emergently intubated and placed on mechanical ventilation. patient received 40 mEq of [place] [address] chest x-ray revealed pulmonary edema and left pleural effusion. ABG was noted to be 723/41/272 / 99% on 100% FiO2 on the vent RSV/influenza/ COVID is negative. Blood cultures have been done. Positive D-dimer-- patient is due to get a CT of the chest to rule out PE Post intubation the patient was placed on propofol and was noted to have low blood pressure. The patient will be started on phenylephrine drip. acute renal failure with a BUN/creatinine of 15/1.45 with metabolic acidosis hyperglycemia with a blood sugar of 312 Urine is tox screen is negative. Vital Signs Vital signs: Vital Signs Pulse Rate 85 02/18/25 12:20 Respiratory Rate 21 H 02/18/25 12:20 Blood Pressure 192/115 H 02/18/25 12:20 Pulse Oximetry 99 02/18/25 12:20 Oxygen Delivery CPAP 02/18/25 12:20 Oxygen Flow Rate 15 02/18/25 12:20 Temperature 36.6 C 02/18/25 12:32 Pulse Rate 71 02/18/25 15:59 Respiratory Rate 16 02/18/25 15:59 Blood Pressure 150/98 H 02/18/25 15:19 Pulse Oximetry 99 02/18/25 15:16 Oxygen Delivery Mechanical Ventilation 02/18/25 15:16 Oxygen Flow Rate 15 02/18/25 12:20 Fraction of Inspired Oxygen 100 02/18/25 15:16 MDM - SOB/Dyspnea MDM Narrative Medical decision making narrative: acute hypoxic respiratory failure secondary to CHF exacerbation acute renal failure hyperglycemia Differential Diagnosis Differential diagnosis: Likely acute exacerbation of chronic obstructive airways disease, community acquired pneumonia and pulmonary embolism Medical Records Attestation: I reviewed the patient's medical records. Lab Data Attestation: I reviewed the patient's lab results. 02/18/25 12:36 02/18/25 12:36 Labs: Lab Results 02/18/25 02/18/25 02/18/25 Range/Units 12:28 12:36 13:18 WBC 14.8 H (4.8-10.8) K/mm3 RBC 5.32 (4.70-6.10) M/mm3 Hgb 15.1 (12.4-15.3) g/dL Hct 52.7 H (37.0-46.0) % MCV 99.1 (78.0-102.0) fL MCH 28.4 (27.0-31.0) pg MCHC 28.7 L (32-36) g/dL RDW 15.3 H (11.6-14.4) % Plt Count 373 (150-420) K/mm3 MPV 10.8 (8.7-11.0) fl Immature Gran % (Auto) 1.9 H (0.0-0.0) % Neut % (Auto) 61.7 (50.0-70.0) % Lymph % (Auto) 30.4 (18.0-42.0) % [place] % (Auto) 3.9 (2.0-11.0) % Eos % (Auto) 1.3 (1.0-6.0) % Baso % (Auto) 0.8 (0.0-1.0) % Lymph # (Auto) 4.49 (1.10-4.50) K/mm3 [place] # (Auto) 0.57 (0.10-0.90) K/mm3 Eos # (Auto) 0.19 (0.02-0.50) K/mm3 Baso # (Auto) 0.12 H (0.00-0.10) K/mm3 Abs Immat Gran (auto) 0.28 H (0.00-0.00) K/mm3 Absolute Neuts (auto) 9.12 H (1.70-7.20) K/mm3 Absolute Nucleated RBC 0.00 (0.00-0.00) K/mm3 Nucleated RBC % 0.0 (0-0.0) % PT 11.9 (9.50-12.1) Seconds INR 1.1 APTT 27.2 (23.9-30.70) Sec D-Dimer 10.55 H* (0.19-0.50) mg/L Minute Volume Not Reportable Vent Mode Not Reportable Expiratory Pressure 8 cmH2O Tidal Volume 500 ml PEEP Not Reportable Inspiratory Pressure 16 cmH2O Peak Inspir Pressure Not Reportable Pressure Support Not Reportable Sodium 146 H (137-145) mmol/L Potassium 4.1 (3.4-5.0) mmol/L Chloride 109 H (98-107) mmol/L Carbon Dioxide 16 L (22-30) mmol/L Anion Gap 21 H (4-12) mmol/L BUN 15 (9-20) mg/dL Creatinine 1.45 H (0.7-1.3) mg/dL Estim Creat Clear Calc Not Reportable Estimated GFR 48 L (59 - ) Glucose 312 H (65-110) mg/dL Calculated Osmolality 314 H (285-295) mOsm/kg Lactic Acid 10.8 H (0.4-2.0) mmol/L Calcium 8.4 (8.4-10.2) mg/dL Total Bilirubin 0.5 (0.2-1.3) mg/dL AST 58 (17-59) U/L ALT 34 (6-50) U/L Alkaline Phosphatase 115 (38-126) U/L Total Creatine Kinase 91 (55-170) U/L Troponin I 0.031 (0.000-0.034) ng/mL NT-Pro-B Natriuret Pep 12111 H (19.9-100) pg/mL Total Protein 7.1 (6.3-8.2) g/dL Albumin 3.9 (3.5-5.1) g/dL Triglycerides 161 H (<150) mg/dL TSH 7.250 H (0.465-4.680) uIU/mL Urine Color Light yellow (Yellow) Urine Appearance Clear (Clear) Urine pH 6.0 (5.0-8.0) Ur Specific [place] 1.010 (1.010-1.020) Urine Protein 1+ H (Negative) Urine Glucose (UA) Trace H (Negative) Urine Ketones Negative (Negative) Ur Blood (Man) 2+ H (Negative) Urine Nitrate Negative (Negative) Urine Bilirubin Negative (Negative) Urine Urobilinogen 0.2 (0.2-1.0) mg/dL Leukocyte Esterase Rfl Negative (Negative) TRINO/UL Urine RBC 3-5 H (0-2) /hpf Urine WBC 0-3 (0-3) /hpf Ur Squamous Epith Cells Few (Few) /hpf Urine Bacteria Trace (None) /hpf Urine Opiates Screen Negative (Negative) Urine Methadone Screen Negative (Negative) Ur Barbiturates Screen Negative (Negative) Ur Phencyclidine Scrn Negative (Negative) Ur Amphetamine Screen Negative (Negative) U Benzodiazepines Scrn Negative (Negative) Urine Cocaine Screen Negative (Negative) U Cannabinoids Screen Negative (Negative) Influenza A (RT-PCR) (Negative) Influenza B (RT-PCR) (Negative) RSV (RT-PCR) (Negative) SARS-CoV-2 RNA (RT-PCR) (Negative) 02/18/25 02/18/25 Range/Units 13:26 14:56 WBC (4.8-10.8) K/mm3 RBC (4.70-6.10) M/mm3 Hgb (12.4-15.3) g/dL Hct (37.0-46.0) % MCV (78.0-102.0) fL MCH (27.0-31.0) pg MCHC (32-36) g/dL RDW (11.6-14.4) % Plt Count (150-420) K/mm3 MPV (8.7-11.0) fl Immature Gran % (Auto) (0.0-0.0) % Neut % (Auto) (50.0-70.0) % Lymph % (Auto) (18.0-42.0) % [place] % (Auto) (2.0-11.0) % Eos % (Auto) (1.0-6.0) % Baso % (Auto) (0.0-1.0) % Lymph # (Auto) (1.10-4.50) K/mm3 [place] # (Auto) (0.10-0.90) K/mm3 Eos # (Auto) (0.02-0.50) K/mm3 Baso # (Auto) (0.00-0.10) K/mm3 Abs Immat Gran (auto) (0.00-0.00) K/mm3 Absolute Neuts (auto) (1.70-7.20) K/mm3 Absolute Nucleated RBC (0.00-0.00) K/mm3 Nucleated RBC % (0-0.0) % PT (9.50-12.1) Seconds INR APTT (23.9-30.70) Sec D-Dimer (0.19-0.50) mg/L Minute Volume Vent Mode Expiratory Pressure cmH2O Tidal Volume ml PEEP Inspiratory Pressure cmH2O Peak Inspir Pressure Pressure Support Sodium (137-145) mmol/L Potassium (3.4-5.0) mmol/L Chloride (98-107) mmol/L Carbon Dioxide (22-30) mmol/L Anion Gap (4-12) mmol/L BUN (9-20) mg/dL Creatinine (0.7-1.3) mg/dL Estim Creat Clear Calc Estimated GFR (59 - ) Glucose (65-110) mg/dL Calculated Osmolality (285-295) mOsm/kg Lactic Acid 2.1 H (0.4-2.0) mmol/L Calcium (8.4-10.2) mg/dL Total Bilirubin (0.2-1.3) mg/dL AST (17-59) U/L ALT (6-50) U/L Alkaline Phosphatase (38-126) U/L Total Creatine Kinase (55-170) U/L Troponin I (0.000-0.034) ng/mL NT-Pro-B Natriuret Pep (19.9-100) pg/mL Total Protein (6.3-8.2) g/dL Albumin (3.5-5.1) g/dL Triglycerides (<150) mg/dL TSH (0.465-4.680) uIU/mL Urine Color (Yellow) Urine Appearance (Clear) Urine pH (5.0-8.0) Ur Specific [place] (1.010-1.020) Urine Protein (Negative) Urine Glucose (UA) (Negative) Urine Ketones (Negative) Ur Blood (Man) (Negative) Urine Nitrate (Negative) Urine Bilirubin (Negative) Urine Urobilinogen (0.2-1.0) mg/dL Leukocyte Esterase Rfl (Negative) TRINO/UL Urine RBC (0-2) /hpf Urine WBC (0-3) /hpf Ur Squamous Epith Cells (Few) /hpf Urine Bacteria (None) /hpf Urine Opiates Screen (Negative) Urine Methadone Screen (Negative) Ur Barbiturates Screen (Negative) Ur Phencyclidine Scrn (Negative) Ur Amphetamine Screen (Negative) U Benzodiazepines Scrn (Negative) Urine Cocaine Screen (Negative) U Cannabinoids Screen (Negative) Influenza A (RT-PCR) Negative (Negative) Influenza B (RT-PCR) Negative (Negative) RSV (RT-PCR) Negative (Negative) SARS-CoV-2 RNA (RT-PCR) Negative (Negative) ABG Data ABG results: 02/18/25 02/18/25 12:36 13:18 Puncture Site Right radial Right radial ABG pH 7.19 L 7.23 L ABG pCO2 34.4 L 40.6 ABG pO2 93.4 H 272.2 H ABG HCO3 12.9 L 16.5 L ABG O2 Saturation 94.8 L 99.3 H ABG Base Excess -14.2 L -10.6 L Oxyhemoglobin 93.9 L 98.0 O2 Delivery Device Bipap Ventilator O2 Liters/Min 100.0 100.0 Vent Rate 18 ECG Data EKG #1: ECG completion date: 02/18/25 ECG completion time: 12:59 Interpretation: normal sinus rhythm. Normal axis. First-degree AV block. No ST elevation. ST depression and T inversion in inferior leads. Critical Care Time Critical Care Time Critical Care Time: Yes Total Critical Care Time: 70 Discharge Plan Discharge Clinical Impression: Acute hypoxemic respiratory failure CHF exacerbation Qualifiers: Heart failure type: unspecified Qualified Code(s): I50.9 - Heart failure, unspecified Acute renal failure Qualifiers: Acute renal failure type: unspecified Qualified Code(s): N17.9 - Acute kidney failure, unspecified Patient Disposition: Still a Patient Condition: Stable Additional Instructions: transfer the patient to [facility] ICU. Patient Language: Kazakh Prescriptions: No Action clopidogrel 75 mg Tablet 75 mg PO DAILY aspirin [Adult Low Dose Aspirin] 81 mg Tablet,Delayed Release (Dr/Ec) 81 mg PO DAILY amlodipine 10 mg Tablet 10 mg PO DAILY simvastatin 20 mg Tablet 20 mg PO DAILY metformin 1,000 mg Tablet 1,000 mg PO DAILY benazepril 40 mg Tablet 40 mg PO DAILY Jardiance 10 mg Tablet 10 mg PO DAILY carvedilol 25 mg Tablet 25 mg PO BID Rx Instructions: must administer with a meal/food clonidine HCl 0.2 mg Tablet 0.2 mg PO TID Follow-up/Referrals: UNKNOWN,DOCTOR [Primary Care Provider] - Time of Disposition: 16:29
--- NOTE | 2025-02-18 12:27 | ECG_ITS ---
Test Date: 2025-02-18 12:59:48 Measurements Intervals [place] Rate: 70 P: 71 NM: 222 QRS: 79 QRSD: 163 T: 255 QT: 458 QTc: 495 Interpretive Statements SINUS RHYTHM WITH FIRST DEGREE AV BLOCK INTRAVENTRICULAR CONDUCTION DELAY [130+ ms QRS DURATION] No previous ECG available for comparison Electronically Signed On 02-19-2025 15:54:35 CDT by Paul Estevez M.D.
[2025-02-18 12:41] LABS: Base Excess ABG -14.2 mmol/L (0-2); HCO3 ABG 12.9 mmol/L (23-29); Oxygen Saturation ABG 94.8 % (95-97); Oxyhemoglobin 93.9 % (94-100); PCO2 ABG 34.4 mmHg (35-45); PO2 ABG 93.4 mmHg (75-85); pH ABG 7.19 (7.35-7.45)
[2025-02-18 12:42] LABS: Basophils Absolute Auto 0.12 K/mm3 (0.00-0.10); Basophils Percent Auto 0.8 % (0.0-1.0); Device BIPAP; Eosinophils Absolute Auto 0.19 K/mm3 (0.02-0.50); Eosinophils Percent Auto 1.3 % (1.0-6.0); Hematocrit 52.7 % (37.0-46.0); Hemoglobin 15.1 g/dL (12.4-15.3); Immature Granulocyte Absolute 0.28 K/mm3 (0.00-0.00); Immature Granulocyte Percent A 1.9 % (0.0-0.0); Lymphocytes Absolute Auto 4.49 K/mm3 (1.10-4.50); Lymphocytes Percent Auto 30.4 % (18.0-42.0); Mean Corpuscular HGB Conc 28.7 g/dL (32-36); Mean Corpuscular Hemoglobin 28.4 pg (27.0-31.0); Mean Corpuscular Volume 99.1 fL (78.0-102.0); Mean Platelet Volume 10.8 fl (8.7-11.0); Modified Allen's Test Pass; Monocytes Absolute Auto 0.57 K/mm3 (0.10-0.90); Monocytes Percent Auto 3.9 % (2.0-11.0); Neutrophils Absolute Auto 9.12 K/mm3 (1.70-7.20); Neutrophils Percent Auto 61.7 % (50.0-70.0); Platelet Count Result 373 K/mm3 (150-420); Red Blood Count 5.32 M/mm3 (4.70-6.10); Red Cell Distribution Width 15.3 % (11.6-14.4); Site Drawn RIGHT RADIAL; White Blood Count 14.8 K/mm3 (4.8-10.8)
[2025-02-18 12:43] LABS: Expiratory Pressure 8 cmH2O; Inspiratory Pressure 16 cmH2O
[2025-02-18] MEDS: ETOMIDATE 20 MG/10 ML AMPUL IV PUSH (12:43)
[2025-02-18] MEDS: SUCCINYLCHOLINE CHLORIDE 20 MG/ML 10 ML VIAL 100 MG IV PUSH (12:46)
[2025-02-18] MEDS: LORazepam INJ (*CRX) 2 MG/ML VIAL IV PUSH (12:49)
[2025-02-18] MEDS: PROPOFOL IV EMULSION 100 ML 4.91 MG IV CONT (12:53)
[2025-02-18 12:58] LABS: Alanine Aminotransferase 34 U/L (6-50); Albumin Level 3.9 g/dL (3.5-5.1); Alkaline Phosphatase 115 U/L (38-126); Anion Gap 21 mmol/L (4-12); Aspartate Amino Transferase 58 U/L (17-59); Bilirubin,Total 0.5 mg/dL (0.2-1.3); Blood Urea Nitrogen 15 mg/dL (9-20); Calcium 8.4 mg/dL (8.4-10.2); Carbon Dioxide 16 mmol/L (22-30); Chloride 109 mmol/L (98-107); Creatine Kinase 91 U/L (55-170); Estimated Glomerular Filt Rate 48; Glucose 312 mg/dL (65-110); Osmolality Calculated 314 mOsm/kg (285-295); Potassium 4.1 mmol/L (3.4-5.0); Sodium 146 mmol/L (137-145); Total Protein 7.1 g/dL (6.3-8.2)
[2025-02-18] MEDS: FUROSEMIDE INJ 40 MG/4 ML VIAL IV PUSH (12:58)
[2025-02-18 12:59] LABS: Lactic Acid Reflex 10.8 mmol/L (0.4-2.0)
--- OUTSIDE RECORDS SUMMARY | 2025-02-18 13:04 | XMS_ITS ---
Author Organization Unknown Address [address] [place] [phone] Phone Care Team Providers Care Natural Science Curator Name Role Phone HAJA MARCH Attending Unavailable [...] femoral head remains in articulation. There is [id number] left hip osteoarthritis. 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 IMPRESSION: ? ? Interval reduction and nailing of an intertrochanteric proximal left femur fracture. ? ? Twvr-wo-eawgzmiv left hip osteoarthritis. THIS IS AN ELECTRONICALLY VERIFIED FINAL REPORT 09/10/2023 1:38 PM - Electronically signed by Jeffrey Brock M.D. MF: [id number] Report ID: [id number] Reading Location: [id number] Social History Type Status Start Date End [...]
--- OUTSIDE RECORDS SUMMARY | 2025-02-18 13:04 | XMS_ITS | Clinical Summary ---
Author Organization [facility] Address [address] [place] [address] Care Team Providers Care Television Technician Name Role Phone None, Provider MD Primary [...] Closed left hip fracture, in itial encounter ([facility]) 06/20/2023 Encounters Date Type Department Care Team Description 12/05/2024 Telephone [facility], [place] [place] [address] Leonor Trevino, RMA Appointment Request (Self ref) [...] place to sleep or slept in a skilled nursing (including now)? No 06/20/2023 Sex and Gender [...] this topic Medical Devices Implanted Type Area Manager Control Device Identifier Shelf Expiration Date Model / Serial / Lot Nail Synthes Tfna Ti Perry 10 X 170mm 125 Deg - [id number] Implanted:Qty: 1 on 06/22/2023 by All Oconnell MD at [facility] Nail Left: Hip SYNTHES 05/07/2033 04.037.012S / / [id number] Tfna Fenestrated Screw 85 Mm Implanted:Qty: 1 on 06/22/2023 by All Oconnell MD at [facility] Left: Hip DEPUY SYNTHES 01/05/2033 04.038.185 S / / [id number] Locking Screw 5 Mm/32mm Implanted:Qty: 1 on 06/22/2023 by All Oconnell MD at [facility] Left: Hip DEPUY SYNTHES 04/06/2031 04.045.032 S / / [id number] Explanted Type Area Manager Control Device Identifier Shelf Expiration Date Model / Serial / Lot 3.2 Mm Guide Wire Explanted:Qty: 2 on 06/22/2023 at [facility] Left: Hip DEPUY SYNTHES 357.399 / / 4.2 Mm Drill Bit Explanted:Qty: 1 on 06/22/2023 at [facility] Left: Hip DEPUY SYNTHES 03.010.061 / / Insurance Advance Directives * Full Code (Latest Code Status on File) Date Activated Date Inactivated Comments 06/20/2023 3:23 PM 06/25/2023 2:24 PM Care Teams Television Technician Relationship Specialty Start Date End Date None, Provider, PCP - General UNKNOWN PHYSICIAN SPECIALTY 06/20/23
--- OUTSIDE RECORDS SUMMARY | 2025-02-18 13:05 | XMS_ITS | Referral Summary ---
Author Organization 4 [facility] Address [address] [place] [address] Care Team Providers Care Clinical Support Manager Name Role Phone Richi Healy MD Unavailable Carlyn Minaya MD Unavailable Radha Epps NP Primary Care Provider Encounters Date Type Department Care Team Description 02/05/2025 Telephone [facility] [place] [address] [facility] [address] [place] [address] Raine Martinez EP-C cr follow up call 01/26/2025 [facility] Post Discharge Follow up phone call [address] [address] Destiny Rausch RN 01/25/2025 9:50 AM CDT - 01/25/2025 11:59 PM CDT Hospital Encounter [facility] Cardiac Testing [address] [facility] [address] [place] [address] Discharge Disposition: Discharge to home or self care 01/15/2025 2:33 PM CDT - 01/25/2025 11:50 AM CDT Hospital Encounter [address] [address] Brayden Hopkins MD Acute on chronic systolic heart failure (HCC) (Primary Dx); Pleural effusion [J90]; Melena; Paroxysmal atrial fibrillation (HCC) Discharge Disposition: Discharge to home or self care 01/19/2025 3:28 PM CDT Anesthesia Event [facility] GI Center [address] [place] [address] Huang Hughes MD Toler Linette TsaiMARIELY 01/19/2025 2:40 PM CDT - 01/19/2025 3:10 PM CDT Surgery [facility] GI Center [address] [place] [phone] Eric Neal MD EGD 01/15/2025 11:28 AM CDT - 01/15/2025 11:59 PM CDT Hospital Encounter [facility] Cardiac Testing [address] [facility] [address] [place] [address] Acute on chronic systolic heart failure (HCC) Discharge Disposition: Discharge to home or self care 01/15/2025 10:01 AM CDT - 01/15/2025 11:59 PM CDT Hospital Encounter [facility] - Imaging [address] [place] [address] Pleural effusion Discharge Disposition: Discharge to home or self care 01/15/2025 9:45 AM CDT Office Visit Cardiovascular and Thoracic Surgery [address] [facility] [address] [place] [address] Regina Guerrero NP Acute on chronic systolic heart failure (HCC) (Primary Dx) 01/13/2025 Orders Only [facility] Urology [address] [facility] Medical Office Building [address] [place] [address] Jeffrey Mackay MD Urinary tract infection without hematuria, site unspecified (Primary Dx) 01/09/[address] [facility] Surgery [address] [place] [address] Michelle James 01/02/2025 10:00 AM CDT Office Visit [facility]) - [facility] Urology [address] [facility] 11th [place] [address] [place] [address] Jeffrey Mackay MD Urinary retention (Primary Dx) 01/01/2025 Telephone [facility] Urology [address] [facility] Medical Office Building 4 [address] [place] [address] Jeffrey Mackay MD 01/01/2025 Orders Only Cardiovascular and Thoracic Surgery [address] [facility] [address] [place] [address] Zuly Lynn RN Pleural effusion (Primary Dx) 12/22/2024 5:56 AM CDT - 12/31/2024 2:00 PM CDT Hospital Encounter [address] [phone] Carlyn Minaya MD Coronary artery disease due to calcified coronary lesion (Primary Dx); S/P CABG x 3 Discharge Disposition: Discharge to [facility] 12/22/2024 6:45 AM CDT Ancillary Procedure [facility] Operating Room [address] [place] [phone] 12/22/2024 6:30 AM CDT Ancillary Procedure [facility] Operating Room [address] [place] [phone] 12/22/2024 7:30 AM CDT - 12/22/2024 12:30 PM CDT Surgery [facility] Operating Room [address] [place] [phone] Carlyn Minaya MD CORONARY ARTERY BYPASS GRAFT 12/22/2024 7:34 AM CDT Anesthesia Event [facility] Operating Room [address] [place] [phone] Cheng Prabhakar MD PhD Bety Cloud MD 12/17/2024 1:15 PM CDT Lab [facility] Outpatient Lab [address] [place] [phone] Coronary artery disease involving [place] coronary artery of [place] heart with unstable angina pectoris (HCC); Pre-op evaluation; Type 2 diabetes mellitus with hyperglycemia, with long-term current use of insulin (HCC) 12/17/2024 12:11 PM CDT - 12/17/2024 11:59 PM CDT Hospital Encounter [facility] - Imaging [address] [place] [address] Coronary artery disease involving [place] coronary artery of [place] heart with unstable angina pectoris (HCC); Pre-op evaluation; Type 2 diabetes mellitus with hyperglycemia, with long-term current use of insulin ([facility]) Discharge Disposition: Discharge to home or self care 12/17/2024 11:18 AM CDT - 12/17/2024 11:59 PM CDT Hospital Encounter [facility] Vascular Lab [address] [place] [address] Coronary artery disease involving [place] coronary artery of [place] heart with unstable angina pectoris (HCC); Pre-op evaluation; Type 2 diabetes mellitus with hyperglycemia, with long-term current use of insulin ([facility]) Discharge Disposition: Discharge to home or self care 12/09/2024 Orders Only [facility] [address] [place] [address] [place] [phone] Zuly Lynn RN Bilateral carotid artery stenosis (Primary Dx) 12/09/2024 Telephone [facility] [address] [place] [address] [place] [phone] Carlyn Minaya MD Surgery Confirmation from [...] tongue every 5 (five) minutes as needed 025 Discontin ued(Stop Taking at Discharge ) [...] 974 - 11/09/2024 Tobacco Cessation:Counseling Given: No [email or web address] Utilities Answer Date Recorded In the past 12 months has [employer], gas, oil, or water [employer] threatened to shut off services in your home? No 01/19/2025 Social Connection and Isolation Panel [NHANES] A nswer Date Recorded In a typical week, how many times do you talk on the phone with family, friends, or neighbors? Twice a week 01/19/2025 How often do you get together with friends or re latives? Twice a week 01/19/2025 How often do you attend denominational or jehovah's witness serv ices? Never 01/19/2025 Do you belong to any clubs o r organizations such as denominational groups, unions, fraternal or athletic groups, or [...] time in the past 12 m [facility], were you homeless or living in a custodial (including now)? No 01/19/2025 Personal Safety Answer Date Recorded Have you ever been in or are you currently in a harmful physical or emotional relationship or is someone making you feel afraid or unsafe? 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 COMPARISON: Chest radiograph dated 02/18/2025 FINDINGS: Endotracheal tube tip 5.0 cm above the marisela. Nasogastric tube coils within the stomach the distal t ip beyond the inferior margin of the field of imaging. Interval increase in the diffuse interstitial and airspace opacities throughout both lungs with right perihilar predominance. Small left pleural effusion. Cardiomegaly. Median sternotomy wires and media stinal surgical clips are seen, likely from prior coronary artery bypass grafting. IMPRESSION: 1. Increasing diffuse bilateral interstitial and airspace opacities which could represent moderate pu lmonary edema or pneumonia. 2. Small left pleural effusion. Reviewed, dictated and finalized at location A. IMPRESSION: 1. Increasing diffuse bilateral interstitial and airspace opacities which could represent moderate pulmonary edema or pneumonia. 2. Small left pleural effusion. "
--- OUTSIDE RECORDS SUMMARY | 2025-02-18 13:06 | XMS_ITS | Clinical Summary ---
Author Organization [address] [place] [address] [place] [phone] Care Team Providers Care Passenger Locomotive Engineer Name Role Phone Richi Healy MD Unavailable Carlyn Minaya MD Unavailable [phone] Radha Epps NP Primary Care Provider Allergies [...] Care Team Description 02/05/2025 Telephone [facility] [place] [address] [facility] [address] [place] [phone] Raine Martinez EP-C cr follow up call 01/26/2025 [facility] Post Discharge Follow up phone call [address] [address] Destiny Rausch RN 01/25/2025 9:50 AM CDT - 01/25/2025 11:59 PM CDT Hospital Encounter [facility] Cardiac Testing [address] [place] [phone] Discharge Disposition: Discharge to home or self care 01/19/2025 3:28 PM CDT Anesthesia Event [facility] GI Center [address] [place] [phone] Huang Hughes MD Toler, Mary Katherine, CRNA 01/19/2025 2:40 PM CDT - 01/19/2025 3:10 PM CDT Surgery [facility] GI Center [address] [place] [phone] Eric Neal MD EGAna 01/15/2025 2:33 PM CDT - 01/25/2025 11:50 AM CDT Hospital Encounter [address] [address] Brayden Hopkins MD Acute on chronic systolic heart failure (HCC) (Primary Dx); Pleural effusion [J90]; Melena; Paroxysmal atrial fibrillation (HCC) Discharge Disposition: Discharge to home or self care 01/15/2025 11:28 AM CDT - 01/15/2025 11:59 PM CDT Hospital Encounter [facility] Cardiac Testing [address] [place] [address] [address] [address] Acute on chronic systolic heart failure (HCC) Discharge Disposition: Discharge to home or self care 01/15/2025 10:01 AM CDT - 01/15/2025 11:59 PM CDT Hospital Encounter [facility] - Imaging [address] [place] [address] Pleural effusion Discharge Disposition: Discharge to home or self care 01/15/2025 9:45 AM CDT Office Visit Cardiovascular and Thoracic Surgery [address] [facility] [address] [place] [phone] Regina Guerrero NP Acute on chronic systolic heart failure (HCC) (Primary Dx) 01/13/2025 Orders Only [facility] Urology [address] [facility] [address] [place] [phone] Jeffrey Mackay MD Urinary tract infection without hematuria, site unspecified (Primary Dx) 01/09/2025 Telephone [facility] Surgery [address] [place] [address] Michelle James 01/02/2025 10:00 AM CDT Office Visit [facility] Advanced [facility] ([facility] Urology [address] [facility] 11th [place] [address] [place] [address] Jeffrey Mackay MD Urinary retention (Primary Dx) 01/01/2025 Telephone [facility] Urology [address] [facility] Office [address] [place] [address] Jeffrey Mackay MD 01/01/2025 Orders Only [facility] Thor[facility] Surgery [address] [facility] [address] [place] [phone] Zuly Lynn RN Pleural effusion (Primary Dx) 12/22/2024 7:34 AM CDT Anesthesia Event [facility] Operating Room [address] [place] [address] Cheng Prabhakar MD PhD Bety Cloud, MD 12/22/2024 7:30 AM CDT - 12/22/2024 12:30 PM CDT Surgery [facility] Operating Room [address] [place] [phone] Carlyn Minaya MD CORONARY ARTERY BYPASS GRAFT 12/22/2024 6:45 AM CDT Ancillary Procedure [facility] Operating Room [address] [place] [phone] 12/22/2024 6:30 AM CDT Ancillary Procedure [facility] Operating Room [address] [place] [phone] 12/22/2024 5:56 AM CDT - 12/31/2024 2:00 PM CDT Hospital Encounter [address] [address] Carlyn Minaya MD Coronary artery disease due to calcified coronary lesion (Primary Dx); S/P CABG x 3 Discharge Disposition: Discharge to SNF 12/17/2024 1:15 PM CDT Lab [facility] Outpatient Lab [address] [place] [phone] Coronary artery disease involving [place] coronary artery of [place] heart with unstable angina pectoris (HCC); Pre-op evaluation; Type 2 diabetes mellitus with hyperglycemia, with long-term current use of insulin (HCC) 12/17/2024 12:11 PM CDT - 12/17/2024 11:59 PM CDT Hospital Encounter [facility] - Imaging [address] [place] [phone] Coronary artery disease involving [place] coronary artery of [place] heart with unstable angina pectoris (HCC); Pre-op evaluation; Type 2 diabetes mellitus with hyperglycemia, with long-term current use of insulin ([facility]) Discharge Disposition: Discharge to home or self care 12/17/2024 11:18 AM CDT - 12/17/2024 11:59 PM CDT Hospital Encounter [facility] Vascular Lab [address] [place] [phone] Coronary artery disease involving [place] coronary artery of [place] heart with unstable angina pectoris (HCC); Pre-op evaluation; Type 2 diabetes mellitus with hyperglycemia, with long-term current use of insulin (HCC) Discharge Disposition: Discharge to home or self care 12/09/2024 Orders Only [facility] Thoracic Surgery [address] [facility] [address] [place] [address] Zuly Lynn RN Bilateral carotid artery stenosis (Primary Dx) 12/09/2024 Telephone Cardiovascular and Thoracic Surgery [address] [facility] [address] [place] [address] Carlyn Minaya MD Surgery Confirmation from Last 3 Months Immunizations Immunization Administration Dates Next Due Pneumococcal Conjugate PCV 13 07/28/2019, 018 Pneumococcal Polysaccharide PPV23 12/12/2021 Tdap 01/07/2018 Surgical History Surgery Date Site/Laterality Comments COLONOSCOPY TOTAL HIP ARTHROPLASTY Left circa 2020 CARDIAC CATHETERIZATION 11/10/2024 N/A Procedure: LEFT HEART CATHETERIZATION WITH CORONARY ANGIOGRAPHY AND WITH OR WITHOUT LEFT VENTRICULOGRAM 97089; Surgeon: Ed Gustafson MD; 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; Service: Cardiovascular; Laterality: N/A; CARDIAC CATHETERIZATION 11/10/2024 N/A Procedure: Coronary Flow Velocity (CFR) / Instantaneous Flow Velocity (IFR), 1st Vessel; Surgeon: Ed Gustafson MD; 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; Service: Cardiovascular; Laterality: N/A; CARDIAC CATHETERIZATION 11/10/2024 N/A Procedure: Coronary Flow Velocity (CFR) / Instantaneous Flow Velocity (IFR), Ea Addtn'l Vessel; Surgeon: Ed Gustafson MD; 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; Service: Cardiovascular; Laterality: N/A; Medical History Medical History Date Comments Diabetes mellitus (HCC) Polycythemia Coronary artery disease Hypertension Family History Medical History Relation Name Comments Heart disease Mother rheumatic hear t diseasej/murmur Relation Name Status Comments Mother Social History Tobacco Use Types Packs/Day Years Used Date Smoking Tobacco: Former Cigarettes 1.3 51.1 1 974 - 11/09/2024 Tobacco Cessation:Counseling Given: No [facility] Utilities Answer Date Recorded In the past [...] week 01/19/2025 How often do you attend yarsani or mormonism serv ices? Never 01/19/2025 Do you belong to any clubs o r organizations such as yarsani groups, unions, fraternal or athletic groups, or [...] any time in the past 12 m [facility], were you homeless or living in a assisted (including now)? No 01/19/2025 Personal Safety Answer Date Recorded Have you ever been in or are you currently in a harmful physical or emotional relationship or is someone making you feel afraid or unsafe? 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 Additional 3D reconstructions utilizing coronal maximum intensity proje ction (MIP) were performed. Automated exposure control and iterative reconstruction technique were em ployed. The dose-length product was 701.17 mGy-cm. COMPARISON: None FINDINGS: Sensitivity is decreased in some of the smaller subsegmental pulmonary arteries primarily at the apic es and lung bases due to respiratory motion. No pulmonary embolism. Small bilateral posterior layerin g pleural effusions with dependent compressive atelectasis in the upper and lower lobes. Diffuse bila teral smooth septal line thickening with surrounding groundglass opacity consistent with pulmonary ed tom. There are bilateral scattered focal small regions of more dense lobular consolidation and favor more focal alveolar edema over pneumonia. Borderline heart size with left ventricular enlargement. At herosclerotic coronary artery calcification. Postoperative change of recent median sternotomy and cor onary artery bypass grafting with small fluid collection surrounding stranding in the anterior medias tinum likely reflecting postoperative hematoma/seroma. Thoracic aorta is normal in caliber. No pathol ogically enlarged thoracic lymphadenopathy. Endotracheal tube tip 4 cm above the marisela. Nasogastric tube extends through the stomach to at least the gastric pylorus with the distal tip not included wit hin the field of imaging. There is reflux of contrast into the inferior vena cava and hepatic veins c onsistent with tricuspid regurgitation. Rim calcified gallstone within the partially visualized gallb ladder. Mild thoracic spondylosis. IMPRESSION: 1. Interstitial and airspace opacities throughout both lungs most likely representing mild to moderat e pulmonary edema although superimposed pneumonia is not excludable. 2. Small bilateral pleural effusions with dependent compressive atelectasis in both lungs. 3. Postoperative change of recent median sternotomy and coronary artery bypass grafting with small re trosternal hematoma/seroma. 4. Borderline heart size with left ventricular enlargement and likely tricuspid regurgitation. 5. Cholelithiasis. 6. Nasogastric tube extends to the region of the gastric pylorus with distal tip not visualized. Cons ider withdrawal by 15 cm. Reviewed, dictated and finalized at location A. IMPRESSION: 1. Interstitial and airspace opacities throughout both lungs most likely repres enting mild to moderate pulmonary edema although superimposed pneumonia is not excludable. 2. Small bilateral pleural effusions with dependent compressive atelectasis in both lungs. 3. Postoperative change of recent median sternotomy and coronary artery bypass grafting with small retrosternal hematoma/seroma. 4. Borderline heart size with left ventricular enlargement and likely tricuspid regurgitation. 5. Cholelithiasis. 6. Nasogastric tube extends to the region of the gastric pylorus with distal ti p not visualized. Consider withdrawal by 15 cm. "
[2025-02-18 13:11] LABS: Troponin I 0.031 ng/mL (0.000-0.034)
[2025-02-18 13:21] LABS: NT Pro B Type Natriuretic Pept 12200 pg/mL (19.9-100)
[2025-02-18 13:23] LABS: Base Excess ABG -10.6 mmol/L (0-2); HCO3 ABG 16.5 mmol/L (23-29); Oxygen Saturation ABG 99.3 % (95-97); PCO2 ABG 40.6 mmHg (35-45); PO2 ABG 272.2 mmHg (75-85); pH ABG 7.23 (7.35-7.45)
[2025-02-18 13:29] LABS: Device VENTILATOR; Modified Allen's Test Pass; Site Drawn RIGHT RADIAL
[2025-02-18 13:30] LABS: Add Urine Microscopic? YES; Appearance Urine Clear (Clear); Bilirubin Urine Negative (Negative); Blood Urine 2+ (Negative); Color Urine Light Yellow (Yellow); Glucose Urine UA Trace (Negative); Ketones Urine Negative (Negative); Leukocyte Esterase Ur Negative LEU/UL (Negative); Nitrate Urine Negative (Negative); Protein Urine 1+ (Negative); Urobilinogen Urine 0.2 mg/dL (0.2-1.0)
[2025-02-18 13:31] LABS: INR 1.1; Partial Thromboplastin Time 27.2 Sec (23.9-30.70); Prothrombin Time 11.9 Seconds (9.50-12.1)
[2025-02-18 13:32] LABS: Arterial Blood Gas Tidal Volume 500 ml; Arterial Blood Gas Ventilator rate 18 /MIN
[2025-02-18 13:34] LABS: D Dimer 10.55 mg/L (0.19-0.50)
[2025-02-18 13:43] LABS: Triglycerides 161 mg/dL (<150)
--- NOTE | 2025-02-18 13:43 | PC.NURSE ---
[address] WITH RN AND RT
[2025-02-18 13:47] LABS: Bacteria Urine Trace /hpf; Squamous Epithelial Cell Urine Few /hpf (Few); WBC Urine 0-3 /hpf (0-3)
[2025-02-18 13:58] LABS: Amphetamine Screen Urine Negative (Negative); Barbiturate Screen Urine Negative (Negative); Benzodiazepines Screen Urine Negative (Negative); Cannabinoid Screen Urine Negative (Negative); Cocaine Screen Urine Negative (Negative); Methadone Screen Urine Negative (Negative); Opiate Screen Urine Negative (Negative); Phencyclidine Screen Urine Negative (Negative)
[2025-02-18 14:14] LABS: Influenza A QL RT-PCR Negative (Negative); Influenza B QL RT-PCR Negative (Negative); RSV RNA, RT-PCR Negative (Negative); SARS-CoV-2 RNA PCR Negative (Negative)
[2025-02-18] MEDS: INSULIN HUMAN REGULAR (*BKC) 1,000 UNITS/10 ML VIAL 5 UNITS SUB-Q (14:22)
[2025-02-18 14:40] LABS: Reflex Lactic Acid Yes or No Add Lactic
[2025-02-18] MEDS: PHENYLEPHRINE HCL INJ 50 MG in SODIUM CHLORIDE 0.9% IV 245 ML 12 ML IV CONT (14:42)
[2025-02-18 15:14] LABS: Lactic Acid 2.1 mmol/L (0.7-2.0)
--- NOTE | 2025-02-18 17:35 | PC.NURSE ---
patient report received from ANTOINETTE Araujo for continuation of care.
--- NOTE | 2025-02-18 17:55 | PC.NURSE ---
Patient herminia Carrizales phoned at this time, update provided by RN that patient is to be transferred to [facility] ICU and EMS had just arrived at our facility.
--- NOTE | 2025-02-20 13:34 | PC.NURSE ---
Preliminary blood culture report; no growth to date.
--- NOTE | 2025-02-24 12:26 | PC.NURSE ---
FINAL BLOOD CULTURE REPORT; NO GROWTH AFTER 5 DAYS.
== END 2025-02-18 18:25 | disposition short-term general hospital (02) ==
PROVIDERS: Emergency Provider Internal Medicine Critical Care Medicine
DX: J96.01 Acute respiratory failure with hypoxia (principal); I11.0 Hypertensive heart disease with heart failure; I50.9 Heart failure, unspecified; N17.9 Acute kidney failure, unspecified; I25.810 Atherosclerosis of coronary artery bypass graft(s) without angina pectoris; E78.5 Hyperlipidemia, unspecified; E11.9 Type 2 diabetes mellitus without complications; Z79.1 Long term (current) use of non-steroidal anti-inflammatories (NSAID); Z20.822 Contact with and (suspected) exposure to COVID-19; Z79.899 Other long term (current) drug therapy
CPT/HCPCS: 31500; 36415; 36600; 71045; 71275; 80053; 80307; 81001; 82550; 82805; 83605; 83880; 84443; 84478; 84484; 85025; 85380; 85610; 85730; 87040; 87637; 93005; 96365; 96366; 96375; 96376; 99291; J0330; J0360; J1815; J1938; J2060; J2371; J2704; J7050; Q9967

== ENCOUNTER 2025-04-20 22:19 | Emergency (ER) | payer MEDICARE, SELFPAY ==
--- OUTSIDE RECORDS SUMMARY | 2025-04-20 22:41 | XMS_ITS | Clinical Summary ---
Author Organization [facility] Address [address] [place] [address] Care Team Providers Care Allied Health Professional Name Role Phone None, Provider MD Primary [...] Closed left hip fracture, in itial encounter ([facility]) 06/20/2023 Social History Tobacco Use Types Packs/Day Years [...] place to sleep or slept in a group home (including now)? No 06/20/2023 Sex and Gender [...] 3:11 PM CDT Height 172.7 cm (5' 8) 06/20/2023 3:11 PM CDT Body Mass Index 27.37 06/20/2023 3:11 PM CDT Plan of Treatment Health Maintenance Due Date Last Done Comments Colorectal Cancer Screening Colonoscopy (10 Years) 1955 Hepatitis C 1971 Zoster Vaccines (1 of 2) 2003 Annual Medicare Wellness Visit 2018 COVID-19 Vaccine (1 - 2023-2 5 season) 2024 DTaP, Tdap [...] this topic Medical Devices Implanted Type Area Bookbinding Machine Operator Device Identifier Shelf Expiration Date Model / Serial / Lot Nail Synthes Tfna Ti Perry 10 X 170mm 125 Deg - [id number] Implanted:Qty: 1 on 06/22/2023 by All Oconnell MD at [facility] Nail Left: Hip SYNTHES 05/07/2033 04.037.012S / / [id number] Tfna Fenestrated Screw 85 Mm Implanted:Qty: 1 on 06/22/2023 by All Oconnell MD at [facility] Left: Hip DEPUY SYNTHES 01/05/2033 04.038.185 S / / [id number] Locking Screw 5 Mm/32mm Implanted:Qty: 1 on 06/22/2023 by All Oconnell MD at [facility] Left: Hip DEPUY SYNTHES 04/06/2031 04.045.032 S / / [id number] Explanted Type Area Bookbinding Machine Operator Device Identifier Shelf Expiration Date Model / Serial / Lot 3.2 Mm Guide Wire Explanted:Qty: 2 on 06/22/2023 at [facility] Left: Hip DEPUY SYNTHES 357.399 / / 4.2 Mm Drill Bit Explanted:Qty: 1 on 06/22/2023 at [facility] Left: Hip DEPUY SYNTHES 03.010.061 / / Insurance Advance Directives * Full Code (Latest Code Status on File) Date Activated Date Inactivated Comments 06/20/2023 3:23 PM 06/25/2023 2:24 PM Care Teams Allied Health Professional Relationship Specialty Start Date End Date None, Provider, MD PCP - General UNKNOWN PHYSICIAN SPECIALTY 06/20/23
--- OUTSIDE RECORDS SUMMARY | 2025-04-20 22:43 | XMS_ITS | Referral Summary ---
Author Organization 4 [facility] Address 4 [place] [address] Care Team Providers Care Production Control Supervisor Name Role Phone Richi Healy MD Unavailable Carlyn Minaya MD Unavailable Radha Epps NP Primary Care Provider Encounters Date Type Department Care Team Description 04/20/2025 9:05 AM CDT Hospital Encounter [facility] [address] [place] [address] Chronic combined systolic and diastolic heart failure (HCC) 03/13/2025 Telephone [facility] Transplant Heart [address] [place] [address] Mailstop [phone] [place] [address] Paolo Wilson 03/12/2025 Telephone [facility] Transplant Heart [address] [facility] [address] Mailstop [phone] [place] [address] Saloni Neff 02/18/2025 7:39 PM CDT - 03/11/2025 5:07 PM CDT Hospital Encounter [facility] [address] [place] [phone] Rehana Shipley DO Anand, Nitin Jagdish, MD Striker, David A., MD Yew, Seow Voon, MD Codey, Janneth Saakova, Chase Gill MD Al Assaad, Rami Yehya, MD Martin, Robert S., MD Poor venous access (Primary Dx); CHF (congestive heart failure), NYHA class I, acute on chronic, combined (HCC); Acute respiratory failure with hypoxia and hypercapnia (HCC) [J96.01, J96.02]; Acute on chronic systolic heart failure (HCC) [I50.23]; EVELIO (acute kidney injury) [N17.9]; Hypernatremia [E87.0]; Acute hypoxemic respiratory failure (HCC); Pneumonia due to Escherichia coli, unspecified laterality, unspecified part of lung (HCC); Atrial fibrillation with RVR ([facility]) [I48.91]; Intra-abdominal bleeding; Hemoperitoneum [K66.1]; Chronic systolic (congestive) heart failure (HCC) Discharge Disposition: Discharge to SNF 03/03/2025 Orders Only [facility] - Interventional Radiology [address] [place] [phone] Junior Amaya RN 02/05/2025 Telephone [facility] [address] [facility] [address] [place] [phone] Raine Martinez EP-C cr follow up call 01/26/2025 [facility] Post Discharge Follow up phone call [address] [phone] Destiny Rausch RN 01/25/2025 9:50 AM CDT - 01/25/2025 11:59 PM CDT Hospital Encounter [facility] Cardiac Testing [address] [place] [address] [address] [place] [address] Discharge Disposition: Discharge to home or self care 01/15/2025 2:33 PM CDT - 01/25/2025 11:50 AM CDT Hospital Encounter [address] [phone] Brayden Hopkins MD Acute on chronic systolic heart failure (HCC) (Primary Dx); Pleural effusion [J90]; Melena; Paroxysmal atrial fibrillation (HCC) Discharge Disposition: Discharge to home or self care 01/19/2025 3:28 PM CDT Anesthesia Event [facility] [address] [place] [phone] Huang Hughes MD Prosper, Linette Tsai, [employer] 01/19/2025 2:40 PM CDT - 01/19/2025 3:10 PM CDT Surgery [facility] [address] [place] [phone] Eric Neal MD EGD from Last 3 Months Allergies No known [...] tablet (80 mg total) by mouth daily 01/01/2025 01/02/20 26 Active acetaminophen (TYLENOL) 325 mg tabletIndicatio ns:Fever,Pain Take 2 tablets (650 mg total) by mouth every 4 (four) hours as needed for pain 01/25/2025 Active furosemide (LASIX) 20 mg tablet Take 1 tablet (20 mg total) by mouth daily 30 tablet 2 01/26/[address] (PROTONIX) 40 mg EC tabletIndicatio ns:GI Bleed Take 1 tablet (40 mg total) by mouth 2 (two) times a day 60 tablet 2 01/25/2025 Active losartan (COZAAR) 50 mg tablet Take 1 tablet (50 mg total) by mouth daily 30 tablet 11 03/12/2025 03/12/20 26 Active metoprolol XL (TOPROL-XL) 50 mg extended release tablet Take 1 tablet (50 mg total) by mouth nightly 30 tablet 11 03/11/2025 03/11/20 26 Active amiodarone (PACERONE) 400 mg tablet Take 1 tablet (400 mg total) by mouth daily 30 tablet 03/12/2025 03/12/20 Active insulin glargine 100 unit/mL (3 mL) pen for injection Inject 15 Units under the skin nightly 15 mL 03/11/2025 Active insulin lispro (HumaLOG, ADMELOG) 100 unit/mL vial for injection Inject 1-5 units under the skin 3 (three) times a day with meals. Blood glucose mg/dL 150-199: 1 unit, 200-249: 2 units, 250-299: 3 units, 300-349: 4 units, 350 or greater: 5 units. Notify provider for blood glucose greater than 299 mg/dL. Refer to After Visit Summary for Sliding Scale Insulin Instructions. 10 mL 03/11/2025 Active Active Problems Problem Noted Date Diagnosed Date Poor venous access 03/05/2025 Anemia 03/04/2025 Intra-abdominal bleeding 03/02/2025 Assessment & Plan (03/05/2025 4:49 PM CDT): Monitor H/H Hemoperitoneum 03/02/2025 Acute respiratory failure with hypoxia and hyper capnia 03/02/2025 Atrial fibrillation with RVR 02/27/2025 Assessment & Plan (03/05/2025 4:49 PM CDT): Continue with amiodarone unable to give anticoagulation due to hemoperitoneum Pneumonia due to Escherichia coli 02/24/2025 Assessment & Plan (03/05/2025 4:49 PM CDT): S/p course of antibiotics Acute hypoxemic respiratory failure 02/20/2025 Assessment & Plan (03/05/2025 4:49 PM CDT): Resolved EVELIO (acute kidney injury) 02/20/2025 Assessment & Plan (03/05/2025 4:49 PM CDT): Resolved Hypernatremia 02/20/2025 Assessment & Plan (03/05/2025 4:49 PM CDT): Resolved CHF (congestive heart failur e), NYHA class I, acute on chronic, combined 02/18/2025 Assessment & Plan (03/05/2025 4:49 PM CDT): Continue with amiodarone 400 mg p.o. daily continue with Aldactone 25 mg q.o.d. Looks euvolemic Moderate malnutrition 01/20/2025 Acute on chronic systolic [...] 974 - 11/09/2024 Tobacco Cessation:Counseling Given: No [facility] Utilities Answer Date Recorded In the past 12 months has CCTV Wireless, gas, oil, or water Rupture threatened to shut off services in your home? No 02/19/2025 Social Connection and Isolation Panel [NHANES] A nswer Date Recorded In a typical week, how many times do you talk on the phone with family, friends, or neighbors? Twice a week 02/19/2025 How often do you get together with friends or re latives? Twice a week 02/19/2025 How often do you attend samaritan or hoahaoism serv ices? Never 02/19/2025 Do you belong to any clubs o r organizations such as samaritan groups, unions, fraternal or athletic groups, or school groups? No 02/19/2025 How often do you attend meet ings of the clubs or organizations you belong to? Never 02/19/2025 Are you , , di vorced, , never , or living with a partner? 02/19/2025 AUDIT-C Answer Date Recorded Q1: How often [...] care, and heating? Not hard at all 02/19/2025 Hunger Vital Sign Answer Date Recorded Within the past 12 months, y ou worried that your food would run out before you got the money to buy more. Never true 02/20/20 25 Within the past 12 months, t he food you bought just didn't last and you didn't have money to get more. Never true 02/19/2025 PRAPARE - Transportation Answer Date Re corded In the past 12 months, has l ack of transportation kept you from medical appointments or from getting medications? No 02/05 In the past 12 months, has l ack of transportation kept you from meetings, work, or from getting things needed for daily living? No 02/19/2025 Housing Stability Vital Sign Answer Yang e Recorded In the last 12 months, was t here a time when you were not able to pay the mortgage or rent on time? Yes 02/19/2025 In the past 12 months, how m any times have you moved where you were living? 0 02/19/2025 At any time in the past 12 m [facility], were you homeless or living in a retirement (including now)? No 02/19/2025 Personal Safety Answer Date Recorded Have you ever been in or are you currently in a harmful physical or emotional relationship or is someone making you feel afraid or unsafe? Patient unable to answer 02/18/2025 Sex and Gender Information Value Date Recorded Sex Assigned at Not on file Legal Sex Male 10:18 PM [employer] Gender Identity Not on file Sexual Orientation Not on file Last Filed Vital Signs Vital Sign Reading Time Taken Comments Blood Pressure 133/79 03/11/2025 11:36 AM CDT Pulse 90 03/11/2025 3:00 PM CDT Temperature 36.5 C (97.7 F) 03/11/2025 11:36 AM CDT Respiratory Rate 18 03/11/2025 11:3 6 AM CDT Oxygen Saturation 99% 03/11/2025 11: 36 AM CDT Inhaled Oxygen Concentration - - Weight 75.7 kg (166 lb 14.2 oz) 02/26/2025 5:55 AM CDT Height 172 cm (5' 7.72) 02/22/2025 3:05 PM CDT Body Mass Index 25.59 02/22/2025 3:05 PM CDT Plan of Treatment Not on file Procedures Procedure Name Priority Date/Time Associated Diagnosis Comments POCT GLUCOSE DEVICE Routine 03/11/2025 12:23 PM CDT POCT GLUCOSE DEVICE Routine 03/11/2025 6:08 AM CDT BLOOD SMEAR REVIEW Routine 03/11/2025 6:05 AM CDT DIFFERENTIAL AUTO Routine 03/11/2025 6:05 AM CDT CBC WITH AUTO DIFFERENTIAL Routine 03/11 6:05 AM CDT POCT GLUCOSE DEVICE Routine 03/10/2025 8:45 PM CDT POCT GLUCOSE DEVICE Routine 03/10/2025 4:52 PM CDT POCT GLUCOSE DEVICE Routine 03/10/2025 12:58 PM CDT POCT GLUCOSE DEVICE Routine 03/10/2025 6:19 AM CDT EGFR Routine 03/10/2025 3:44 AM CDT DIFFERENTIAL AUTO Routine 03/10/2025 3:44 AM CDT BASIC METABOLIC PANEL Routine 03/10/2025 3:44 AM CDT LIPASE Routine 03/10/2025 3:44 AM CDT CBC WITH AUTO DIFFERENTIAL Routine 03/10 3:44 AM CDT POCT GLUCOSE DEVICE Routine 03/09/2025 8:47 PM CDT ADD ON LAB TEST Add-On 03/09/2025 7:03 PM CDT POCT GLUCOSE DEVICE Routine 03/09/2025 5:40 PM CDT POCT GLUCOSE DEVICE Routine 03/09/2025 12:11 PM CDT ADD ON LAB TEST Add-On 03/09/2025 10:43 AM CDT POCT GLUCOSE DEVICE Routine 03/09/2025 6:38 AM CDT AMYLASE Routine 03/09/2025 4:54 AM CDT PROCALCITONIN Routine 03/09/2025 4:54 AM CDT EGFR Routine 03/09/2025 4:54 AM CDT DIFFERENTIAL AUTO Routine 03/09/2025 4:54 AM CDT CRP (ACUTE PHASE) Routine 03/09/2025 4:54 AM CDT COMPREHENSIVE METABOLIC PANEL Routine 4:54 AM CDT CBC WITH AUTO DIFFERENTIAL Routine 03/09 4:54 AM CDT POCT GLUCOSE DEVICE Routine 03/08/2025 9:[address] ABDOMEN W CONTRAST IP Routine 03/08/2025 5:[address] CHEST WO CONTRAST IP Routine 03/08/2025 5:36 PM CDT POCT GLUCOSE DEVICE Routine 03/08/2025 5:01 PM CDT EGFR Routine 03/08/2025 4:56 PM CDT COMPREHENSIVE METABOLIC PANEL Routine 4:56 PM CDT XR CHEST 1 VIEW ED Urgent/IP Urgent 03/08/2025 4:51 PM CDT BLOOD CULTURE Routine 03/08/2025 4:40 PM CDT BLOOD CULTURE Routine 03/08/2025 4:40 PM CDT IN INSJ NON-TUNNELED CENTRAL VENOUS CATH AGE 5 YR/> Routine 03/08/2025 4:28 PM CDT Poor venous access URINALYSIS AND REFLEX TO MICROSCOPIC Routine 03/08/2025 3:11 PM CDT POCT GLUCOSE DEVICE Routine 03/08/2025 12:22 PM CDT BLOOD SMEAR REVIEW Routine 03/08/2025 10:29 AM CDT DIFFERENTIAL AUTO Routine 03/08/2025 10:29 AM CDT CBC WITH AUTO DIFFERENTIAL Routine 03/08 10:29 AM CDT POCT GLUCOSE DEVICE Routine 03/08/2025 6:12 AM CDT POCT GLUCOSE DEVICE Routine 03/07/2025 9:08 PM CDT LACTATE STAT 03/07/2025 8:19 PM CDT XR KUB IP Routine 03/07/2025 7:17 PM CDT POCT GLUCOSE DEVICE Routine 03/07/2025 5:05 PM CDT POCT GLUCOSE DEVICE Routine 03/07/2025 12:06 PM CDT HEMOGLOBIN AND HEMATOCRIT Timed 2024 9:28 AM CDT POCT GLUCOSE DEVICE Routine 03/07/2025 6:28 AM CDT HEMOGLOBIN AND HEMATOCRIT Timed 2024 12:22 AM CDT POCT GLUCOSE DEVICE Routine 03/06/2025 9:27 PM CDT POCT GLUCOSE DEVICE Routine 03/06/2025 5:15 PM CDT HEMOGLOBIN AND HEMATOCRIT Timed 2024 4:55 PM CDT US VEIN DUPLEX UPPER EXTREMI TY RIGHT LIMITED IP Routine 03/06/2025 2:31 PM CDT POCT GLUCOSE DEVICE Routine 03/06/2025 1:15 PM CDT ADD ON LAB TEST Add-On 03/06/2025 10:52 AM CDT HEMOGLOBIN AND HEMATOCRIT Timed 2024 10:11 AM CDT POCT GLUCOSE DEVICE Routine 03/06/2025 6:29 AM CDT HEMOGLOBIN AND HEMATOCRIT Timed 2024 12:26 AM CDT POCT GLUCOSE DEVICE Routine 03/05/2025 8:39 PM CDT POCT GLUCOSE DEVICE Routine 03/05/2025 4:50 PM CDT HEMOGLOBIN AND HEMATOCRIT Timed 2024 4:38 PM CDT POCT GLUCOSE DEVICE Routine 03/05/2025 12:32 PM CDT POCT GLUCOSE DEVICE Routine 03/05/2025 8:46 AM CDT HEMOGLOBIN AND HEMATOCRIT Timed 2024 8:45 AM CDT POCT GLUCOSE DEVICE Routine 03/05/2025 6:39 AM CDT IRON PROFILE W/ IBC Routine 03/05/2025 1:12 AM CDT EGFR Routine 03/05/2025 1:12 AM CDT CBC WITHOUT DIFFERENTIAL Routine 025 1:12 AM CDT MAGNESIUM Routine 03/05/2025 1:12 AM CDT RENAL FUNCTION PANEL Routine 03/05/2025 1:12 AM CDT POCT GLUCOSE DEVICE Routine 03/04/2025 9:32 PM CDT POCT GLUCOSE DEVICE Routine 03/04/2025 6:17 PM CDT EGFR STAT 03/04/2025 12:56 PM CDT SEPSIS LACTATE WITH REFLEX STAT 03/04 12:56 PM CDT COMPREHENSIVE METABOLIC PANEL STAT 12:56 PM CDT HEMOGLOBIN AND HEMATOCRIT Timed 2024 12:56 PM CDT POCT GLUCOSE DEVICE Routine 03/04/2025 12:32 PM CDT HEMOGLOBIN AND HEMATOCRIT Timed 2024 7:54 AM CDT POCT GLUCOSE DEVICE Routine 03/04/2025 7:53 AM CDT POCT GLUCOSE DEVICE Routine 03/04/2025 4:30 AM CDT EGFR Routine 03/04/2025 12:55 AM CDT PHOSPHORUS Routine 03/04/2025 12:55 AM CDT BILIRUBIN, DIRECT Routine 03/04/2025 12:55 AM CDT COMPREHENSIVE METABOLIC PANEL Routine 12:55 AM CDT CBC WITHOUT DIFFERENTIAL Routine 025 12:55 AM CDT MAGNESIUM Routine 03/04/2025 12:55 AM CDT POCT GLUCOSE DEVICE Routine 03/04/2025 12:34 AM CDT POCT GLUCOSE DEVICE Routine 03/03/2025 8:29 PM CDT HEMOGLOBIN AND HEMATOCRIT Timed 2024 5:29 PM CDT POCT GLUCOSE DEVICE Routine 03/03/2025 5:15 PM CDT POCT GLUCOSE DEVICE Routine 03/03/2025 12:13 PM CDT HEMOGLOBIN AND HEMATOCRIT Timed 2024 9:10 AM CDT POCT GLUCOSE DEVICE Routine 03/03/2025 8:05 AM CDT EGFR Routine 03/03/2025 5:13 AM CDT CBC WITHOUT DIFFERENTIAL Routine 025 5:13 AM CDT MAGNESIUM Routine 03/03/2025 5:13 AM CDT RENAL FUNCTION PANEL Routine 03/03/2025 5:13 AM CDT POCT GLUCOSE DEVICE Routine 03/03/2025 5:11 AM CDT HEMOGLOBIN AND HEMATOCRIT Timed 2024 11:36 PM CDT POCT GLUCOSE DEVICE Routine 03/02/2025 11:35 PM CDT POCT GLUCOSE DEVICE Routine 03/02/2025 7:57 PM CDT HEMOGLOBIN AND HEMATOCRIT Timed 2024 6:05 PM CDT POCT GLUCOSE DEVICE Routine 03/02/2025 5:08 PM CDT LACTATE STAT 03/02/2025 2:26 PM CDT HEMOGLOBIN AND HEMATOCRIT Timed 2024 2:26 PM CDT XR CHEST 1 VIEW ED Urgent/IP Urgent 03/02/2025 2:09 PM CDT GENERAL Routine 03/02/2025 1:59 PM CDT Poor venous access POCT GLUCOSE DEVICE Routine 03/02/2025 12:25 PM CDT EGFR Routine 03/02/2025 8:33 AM CDT BLOOD SMEAR REVIEW Routine 03/02/2025 8:33 AM CDT DIFFERENTIAL AUTO Routine 03/02/2025 8:33 AM CDT BLOOD GAS, VENOUS Timed 03/02/2025 8:33 AM CDT LACTATE Routine 03/02/2025 8:33 AM CDT MAGNESIUM Routine 03/02/2025 8:33 AM CDT PROTIME-INR Routine 03/02/2025 8:33 AM CDT COMPREHENSIVE METABOLIC PANEL Routine 8:33 AM CDT CBC WITH AUTO DIFFERENTIAL Routine 03/02 8:33 AM CDT POCT GLUCOSE DEVICE Routine 03/02/2025 8:19 AM CDT POCT GLUCOSE DEVICE Routine 03/02/2025 4:09 AM CDT XR CHEST 1 VIEW IP Routine 03/02/2025 3:53 AM CDT CBC WITHOUT DIFFERENTIAL Timed 025 12:08 AM CDT POCT GLUCOSE DEVICE Routine 03/02/2025 12:03 AM CDT LACTATE Timed 03/01/2025 8:07 PM CDT HEMOGLOBIN AND HEMATOCRIT Timed 2024 8:07 PM CDT POCT GLUCOSE DEVICE Routine 03/01/2025 8:05 PM CDT APTT STAT 03/01/2025 4:26 PM CDT PROTIME-INR STAT 03/01/2025 4:26 PM CDT HEMOGLOBIN AND HEMATOCRIT STAT 2024 4:26 PM CDT POCT GLUCOSE DEVICE Routine 03/01/2025 4:17 PM CDT TYPE AND SCREEN STAT 03/01/2025 1:45 PM CDT PROTIME-INR STAT 03/01/2025 1:45 PM CDT APTT STAT 03/01/2025 1:45 PM CDT PREPARE RBC STAT 03/01/2025 1:[address] ABDOMEN PELVIS WO CONTRAST ED Urgent/ IP Urgent 03/01/2025 1:[address] HEAD WO CONTRAST ED Urgent/IP Urgent 03/01/2025 1:22 PM CDT EGFR Timed 03/01/2025 12:51 PM CDT LACTATE Timed 03/01/2025 12:51 PM CDT COMPREHENSIVE METABOLIC PANEL Timed 12:51 PM CDT HEMOGLOBIN AND HEMATOCRIT Timed 2024 12:51 PM CDT POCT GLUCOSE DEVICE Routine 03/01/2025 11:25 AM CDT POCT GLUCOSE DEVICE Routine 03/01/2025 8:33 AM CDT POCT GLUCOSE DEVICE Routine 03/01/2025 4:39 AM CDT XR CHEST 1 VIEW IP Routine 03/01/2025 4:14 AM CDT EGFR Routine 03/01/2025 2:45 AM CDT DIFFERENTIAL AUTO Routine 03/01/2025 2:45 AM CDT MAGNESIUM Routine 03/01/2025 2:45 AM CDT RENAL FUNCTION PANEL Routine 03/01/2025 2:45 AM CDT CBC WITH AUTO DIFFERENTIAL Routine 03/01 2:45 AM CDT APTT Routine 03/01/2025 2:45 AM CDT BLOOD CULTURE Routine 03/01/2025 2:45 AM CDT BLOOD CULTURE Routine 03/01/2025 2:45 AM CDT POCT GLUCOSE DEVICE Routine 03/01/2025 12:44 AM CDT POCT GLUCOSE DEVICE Routine 02/28/2025 7:57 PM CDT POCT GLUCOSE DEVICE Routine 02/28/2025 5:16 PM CDT APTT Routine 02/28/2025 2:53 PM CDT POCT GLUCOSE DEVICE Routine 02/28/2025 12:49 PM CDT APTT Timed 02/28/2025 8:10 AM CDT POCT GLUCOSE DEVICE Routine 02/28/2025 8:04 AM CDT POCT GLUCOSE DEVICE Routine 02/28/2025 4:14 AM CDT XR CHEST 1 VIEW IP Routine 02/28/2025 3:49 AM CDT EGFR Routine 02/28/2025 1:21 AM CDT DIFFERENTIAL AUTO Routine 02/28/2025 1:21 AM CDT APTT Routine 02/28/2025 1:21 AM CDT PROCALCITONIN Routine 02/28/2025 1:21 AM CDT THYROID FUNCTION CASCADE Routine 025 1:21 AM CDT LACTATE Routine 02/28/2025 1:21 AM CDT MAGNESIUM Routine 02/28/2025 1:21 AM CDT PHOSPHORUS Routine 02/28/2025 1:21 AM CDT CBC WITH AUTO DIFFERENTIAL Routine 02/28 1:21 AM CDT COMPREHENSIVE METABOLIC PANEL Routine 1:21 AM CDT POCT GLUCOSE DEVICE Routine 02/28/2025 12:21 AM CDT POCT GLUCOSE DEVICE Routine 02/27/2025 8:07 PM CDT APTT STAT 02/27/2025 6:23 PM CDT POCT GLUCOSE DEVICE Routine 02/27/2025 4:09 PM CDT EXTUBATION Routine 02/27/2025 2:45 PM CDT ADD ON LAB TEST Add-On 02/27/2025 2:33 PM CDT POCT GLUCOSE DEVICE Routine 02/27/2025 12:08 PM CDT ECG 12-LEAD STAT 02/27/2025 11:45 AM CDT APTT STAT 02/27/2025 9:33 AM CDT CBC WITHOUT DIFFERENTIAL STAT 025 9:33 AM CDT PROTIME-INR STAT 02/27/2025 9:33 AM CDT POCT GLUCOSE DEVICE Routine 02/27/2025 7:47 AM CDT XR CHEST 1 VIEW IP Routine 02/27/2025 5:09 AM CDT POCT GLUCOSE DEVICE Routine 02/27/2025 4:20 AM CDT PRO B-TYPE NATRIURETIC PEPTIDE Routine 0 02/27/2025 2:48 AM CDT EGFR Routine 02/27/2025 2:48 AM CDT CALCIUM, IONIZED Routine 02/27/2025 2:48 AM CDT CBC WITHOUT DIFFERENTIAL Routine 025 2:48 AM CDT MAGNESIUM Routine 02/27/2025 2:48 AM CDT RENAL FUNCTION PANEL Routine 02/27/2025 2:48 AM CDT POCT GLUCOSE DEVICE Routine 02/27/2025 12:46 AM CDT POCT GLUCOSE DEVICE Routine 02/26/2025 8:38 PM CDT POCT GLUCOSE DEVICE Routine 02/26/2025 3:58 PM CDT POCT GLUCOSE DEVICE Routine 02/26/2025 11:53 AM CDT POCT GLUCOSE DEVICE Routine 02/26/2025 9:04 AM CDT POCT GLUCOSE DEVICE Routine 02/26/2025 5:11 AM CDT XR CHEST 1 VIEW IP Routine 02/26/2025 3:38 AM CDT EGFR Routine 02/26/2025 3:04 AM CDT CBC WITHOUT DIFFERENTIAL Routine 025 3:04 AM CDT MAGNESIUM Routine 02/26/2025 3:04 AM CDT RENAL FUNCTION PANEL Routine 02/26/2025 3:04 AM CDT POCT GLUCOSE DEVICE Routine 02/26/2025 1:30 AM CDT POCT GLUCOSE DEVICE Routine 02/25/2025 9:39 PM CDT MAGNESIUM Timed 02/25/2025 4:02 PM CDT POTASSIUM LEVEL Timed 02/25/2025 4:02 PM CDT POCT GLUCOSE DEVICE Routine 02/25/2025 3:50 PM CDT POCT GLUCOSE DEVICE Routine 02/25/2025 11:32 AM CDT TRANSTHORACIC ECHO (TTE) LIMITED/FOLLOW UP W LTD DOPPLER/CF W CONTRAST Routine 02/25/2025 10:45 AM CDT POCT GLUCOSE DEVICE Routine 02/25/2025 7:35 AM CDT POCT GLUCOSE DEVICE Routine 02/25/2025 4:21 AM CDT XR CHEST 1 VIEW IP Routine 02/25/2025 4:17 AM CDT EGFR Routine 02/25/2025 3:40 AM CDT CBC WITHOUT DIFFERENTIAL Routine 025 3:40 AM CDT MAGNESIUM Routine 02/25/2025 3:40 AM CDT RENAL FUNCTION PANEL Routine 02/25/2025 3:40 AM CDT POCT GLUCOSE DEVICE Routine 02/25/2025 12:17 AM CDT POCT GLUCOSE DEVICE Routine 02/24/2025 7:49 PM CDT POCT GLUCOSE DEVICE Routine 02/24/2025 3:21 PM CDT POTASSIUM LEVEL Timed 02/24/2025 1:17 PM CDT POCT GLUCOSE DEVICE Routine 02/24/2025 11:35 AM CDT POCT GLUCOSE DEVICE Routine 02/24/2025 7:19 AM CDT POCT GLUCOSE DEVICE Routine 02/24/2025 4:23 AM CDT XR CHEST 1 VIEW IP Routine 02/24/2025 3:59 AM CDT EGFR Routine 02/24/2025 3:27 AM CDT CBC WITHOUT DIFFERENTIAL Routine 025 3:27 AM CDT MAGNESIUM Routine 02/24/2025 3:27 AM CDT RENAL FUNCTION PANEL Routine 02/24/2025 3:27 AM CDT POCT GLUCOSE DEVICE Routine 02/24/2025 12:01 AM CDT POCT GLUCOSE DEVICE Routine 02/23/2025 8:43 PM CDT POCT GLUCOSE DEVICE Routine 02/23/2025 4:22 PM CDT POCT GLUCOSE DEVICE Routine 02/23/2025 12:28 PM CDT POCT GLUCOSE DEVICE Routine 02/23/2025 8:16 AM CDT EGFR Routine 02/23/2025 4:10 AM CDT PRO B-TYPE NATRIURETIC PEPTIDE Routine 0 02/23/2025 4:10 AM CDT MAGNESIUM Routine 02/23/2025 4:10 AM CDT BASIC METABOLIC PANEL Routine 02/23/2025 4:10 AM CDT POCT GLUCOSE DEVICE Routine 02/23/2025 3:59 AM CDT POCT GLUCOSE DEVICE Routine 02/22/2025 11:31 PM CDT EGFR STAT 02/22/2025 10:45 PM CDT MAGNESIUM STAT 02/22/2025 10:45 PM CDT BASIC METABOLIC PANEL STAT 02/22/2025 10:45 PM CDT POCT GLUCOSE DEVICE Routine 02/22/2025 8:04 PM CDT POCT GLUCOSE DEVICE Routine 02/22/2025 5:07 PM CDT XR KUB Critical/Lif e-Threatenin g 02/22/2025 4:30 PM CDT BLOOD GAS, ARTERIAL STAT 02/22/2025 3:34 PM CDT XR CHEST 1 VIEW Critical/Lif e-Threatenin g 02/22/2025 3:12 PM CDT POCT GLUCOSE DEVICE Routine 02/22/2025 11:56 AM CDT POCT GLUCOSE DEVICE Routine 02/22/2025 7:14 AM CDT POCT GLUCOSE DEVICE Routine 02/22/2025 3:59 AM CDT XR CHEST 1 VIEW IP Routine 02/22/2025 3:33 AM CDT EGFR Routine 02/22/2025 2:13 AM CDT MAGNESIUM Routine 02/22/2025 2:13 AM CDT BASIC METABOLIC PANEL Routine 02/22/2025 2:13 AM CDT POCT GLUCOSE DEVICE Routine 02/21/2025 11:38 PM CDT POCT GLUCOSE DEVICE Routine 02/21/2025 7:44 PM CDT POCT GLUCOSE DEVICE Routine 02/21/2025 3:52 PM CDT POCT GLUCOSE DEVICE Routine 02/21/2025 11:17 AM CDT POCT GLUCOSE DEVICE Routine 02/21/2025 7:24 AM CDT ADD ON LAB TEST Add-On 02/21/2025 5:14 AM CDT ADD ON LAB TEST Add-On 02/21/2025 5:14 AM CDT XR CHEST 1 VIEW IP Routine 02/21/2025 4:31 AM CDT EGFR Routine 02/21/2025 3:13 AM CDT DIFFERENTIAL AUTO Routine 02/21/2025 3:13 AM CDT PROCALCITONIN Routine 02/21/2025 3:13 AM CDT LACTATE Routine 02/21/2025 3:13 AM CDT MAGNESIUM Routine 02/21/2025 3:13 AM CDT PHOSPHORUS Routine 02/21/2025 3:13 AM CDT COMPREHENSIVE METABOLIC PANEL Routine 3:13 AM CDT CBC WITH AUTO DIFFERENTIAL Routine 02/21 3:13 AM CDT POCT GLUCOSE DEVICE Routine 02/21/2025 3:01 AM CDT POCT GLUCOSE DEVICE Routine 02/20/2025 11:57 PM CDT POCT GLUCOSE DEVICE Routine 02/20/2025 7:40 PM CDT POCT GLUCOSE DEVICE Routine 02/20/2025 5:38 PM CDT EGFR Timed 02/20/2025 5:36 PM CDT MAGNESIUM Timed 02/20/2025 5:36 PM CDT BASIC METABOLIC PANEL Timed 02/20/2025 5:36 PM CDT STREP PNEUMONIAE AG, URINE STAT 02/20 5:36 PM CDT LEGIONELLA ANTIGEN, URINE STAT 2024 5:36 PM CDT TROPONIN T HIGH-SENSITIVITY Timed 02/05 1:08 PM CDT POTASSIUM LEVEL Timed 02/20/2025 1:08 PM CDT POCT GLUCOSE DEVICE Routine 02/20/2025 1:01 PM CDT BLOOD CULTURE Routine 02/20/2025 10:36 AM CDT BLOOD CULTURE Routine 02/20/2025 10:36 AM CDT POCT GLUCOSE DEVICE Routine 02/20/2025 8:48 AM CDT AEROBIC CULTURE AND GRAM STAIN STAT 0 02/20/2025 6:57 AM CDT XR CHEST 1 VIEW IP Routine 02/20/2025 4:15 AM CDT EGFR Routine 02/20/2025 3:06 AM CDT DIFFERENTIAL AUTO Routine 02/20/2025 3:06 AM CDT MAGNESIUM Routine 02/20/2025 3:06 AM CDT PHOSPHORUS Routine 02/20/2025 3:06 AM CDT COMPREHENSIVE METABOLIC PANEL Routine 3:06 AM CDT CBC WITH AUTO DIFFERENTIAL Routine 02/20 3:06 AM CDT POCT GLUCOSE DEVICE Routine 02/19/2025 7:46 PM CDT POCT GLUCOSE DEVICE Routine 02/19/2025 5:46 PM CDT EGFR Routine 02/19/2025 3:31 PM CDT RENAL FUNCTION PANEL Routine 02/19/2025 3:31 PM CDT TRANSTHORACIC ECHO (TTE) COMPLETE W DOPPLER/CF W CONTRAST Routine 02/19/2025 12:14 PM CDT POCT GLUCOSE DEVICE Routine 02/19/2025 11:30 AM CDT LACTATE STAT 02/19/2025 10:51 AM CDT PROCALCITONIN STAT 02/19/2025 10:51 AM CDT MRSA ONLY (STAPHYLOCOCCUS AUREUS) PCR STAT 02/19/2025 10:51 AM CDT RESPIRATORY PATHOGEN PANEL STAT 02/19 10:51 AM CDT ADD ON LAB TEST Add-On 02/19/2025 10:06 AM CDT ADD ON LAB TEST Add-On 02/19/2025 10:06 AM CDT POCT GLUCOSE DEVICE Routine 02/19/2025 9:37 AM CDT XR CHEST 1 VIEW Critical/Lif e-Threatenin g 02/19/2025 8:50 AM CDT MAGNESIUM Routine 02/19/2025 3:11 AM CDT PHOSPHORUS Routine 02/19/2025 3:11 AM CDT EGFR Routine 02/19/2025 3:11 AM CDT BASIC METABOLIC PANEL Routine 02/19/2025 3:11 AM CDT CBC WITHOUT DIFFERENTIAL Routine 025 3:11 AM CDT URINALYSIS, MICROSCOPIC ONLY Routine 11:51 PM CDT URINALYSIS AND REFLEX TO MICROSCOPIC AND CULTURE Routine 02/18/2025 11:51 PM CDT POCT GLUCOSE DEVICE Routine 02/18/2025 11:43 PM CDT POCT GLUCOSE DEVICE Routine 02/18/2025 9:12 PM CDT TRIGLYCERIDES STAT 02/18/2025 9:01 PM CDT EGFR STAT 02/18/2025 9:01 PM CDT CBC WITHOUT DIFFERENTIAL STAT 025 9:01 PM CDT PRO B-TYPE NATRIURETIC PEPTIDE STAT 0 02/18/2025 9:01 PM CDT PHOSPHORUS STAT 02/18/2025 9:01 PM CDT MAGNESIUM STAT 02/18/2025 9:01 PM CDT COMPREHENSIVE METABOLIC PANEL STAT 9:01 PM CDT APTT STAT 02/18/2025 9:00 PM CDT PROTIME-INR STAT 02/18/2025 9:00 PM CDT LACTATE STAT 02/18/2025 9:00 PM CDT BLOOD GAS, ARTERIAL STAT 02/18/2025 8:34 PM CDT XR CHEST 1 VIEW Critical/Lif e-Threatenin g 02/18/2025 8:15 PM CDT MCT - MOBILE CARDIAC TELEMET RY EVENT MONITOR Routine 01/25/2025 3:37 PM CDT Paroxysmal atrial fibrillation (HCC) POCT GLUCOSE DEVICE Routine 01/25/2025 7:47 AM [...] METABOLIC PANEL Routine 01/19/2025 12:18 AM CDT HEMOGLOBIN A1C Routine 12/17/2024 12:55 PM CDT Coronary artery disease involving [place] coronary artery of [place] heart with unstable angina pectoris (HCC) Pre-op evaluation Type 2 diabetes mellitus with hyperglycemia, with long-term current use of insulin (HCC) LIPID PANEL Routine 12/17/2024 12:55 PM CDT Coronary artery disease involving [place] coronary artery of [place] heart with unstable angina pectoris (HCC) Pre-op evaluation Type 2 diabetes mellitus with hyperglycemia, with long-term current use of insulin (HCC) CT CHEST WO CONTRAST F/U MELISSA G SCREEN PROTOCOL Schedule Routine, Read Routine (OP Routine) 12/06/2022 8:05 AM [employer]ER Abnormal findings on diagnostic imaging of other specified body structures from Last 3 Months or Most Recently Relevant to Health Maintenance Results * POCT glucose (03/11/2025 12:23 PM CDT) Glucose, POC 129 70 - 199 mg/dL Comment: For Glucose values <35 mg/dl when Hematocrit is >60 mg/dl,the test may not accurately detect significant hypoglycemia,and testing in the Laboratory should be considered if clinically indicated. POC Performer [phone] [facility] Blood 03/11/2025 12:2 3 PM CDT 03/11/2025 12:23 PM CDT Gil Pierce MD LAB POCT ORDERABLES - DE VICE Final Result Performing Organization Address [facility] Co de Phone Number [facility] [address] [place], [place] [id number] * POCT glucose (03/11/2025 6:08 AM CDT) Glucose, POC 112 70 - 199 mg/dL Comment: For Glucose values <35 mg/dl when Hematocrit is >60 mg/dl,the test may not accurately detect significant hypoglycemia,and testing in the Laboratory should be considered if clinically indicated. POC Performer [phone] [facility] Blood 03/11/2025 6:08 AM CDT 03/11/2025 6:08 AM CDT us Gil Pierce MD LAB POCT ORDERABLES - DE VICE Final Result Performing Organization Address [facility] Co de Phone Number [facility] [address] [place], [place] [id number] * (ABNORMAL) Blood smear review (03/11/2025 6:05 AM CDT) Pathologist [facility] RBC morphology Present(A) Hypochromasia 3-7/HPF(A) [facility] Anisocytosis Slight(A) [facility] Elliptocytes 3-7/HPF(A) [facility] Platelet estimate Adequate [facility] Morphology scrn See Comment [facility] Comment:WBC: Toxic Granulati on present RBC: [place] cells present Blood 03/11/2025 6:05 AM CDT 03/11/2025 6:14 AM CDT us Chase Keen MD LAB BLOOD ORDERABLES Final Resul t [facility] [address] [place] [address] * (ABNORMAL) Differential, auto (03/11/2025 6:05 AM CDT) Neutrophil abs 20.77(H) 1.50 - 6.50 K/cumm Imm gran abs 0.68(H) 0.00 - 0.10 K/cumm [facility] Lymphocyte abs 2.19 0.80 - 3.30 K/cumm [facility] Monocyte abs 2.24(H) 0.20 - 0.80 K/cumm [facility] Eosinophil abs 0.11 0.00 - 0.50 K/cumm [facility] Basophil abs 0.13(H) 0.00 - 0.10 K/cumm [facility] Neutrophil pct 79.5 % [facility] Comment: Interpretive Data Percent cell count reference ranges are not reported, since discordance with absolute values may lead to misinterpretation of CBC data. Current Interpretive Data was last revised on 2018. Imm gran pct 2.6 % [facility] Comment: Interpretive Data Percent cell count reference ranges are not reported, since discordance with absolute values may lead to misinterpretation of CBC data. Current Interpretive Data was last revised on 2018. Lymphocyte pct 8.4 % [facility] Comment: Interpretive Data Percent cell count reference ranges are not reported, since discordance with absolute values may lead to misinterpretation of CBC data. Current Interpretive Data was last revised on 2018. Monocyte pct 8.6 % [facility] Comment: Interpretive Data Percent cell count reference ranges are not reported, since discordance with absolute values may lead to misinterpretation of CBC data. Current Interpretive Data was last revised on 2018. Eosinophil pct 0.4 % [facility] Comment: Interpretive Data Percent cell count reference ranges are not reported, since discordance with absolute values may lead to misinterpretation of CBC data. Current Interpretive Data was last revised on 2018. Basophil pct 0.5 % [facility] Comment: Interpretive Data Percent cell count reference ranges are not reported, since discordance with absolute values may lead to misinterpretation of CBC data. Current Interpretive Data was last revised on 2018. Blood 03/11/2025 6:05 AM CDT 03/11/2025 6:14 AM CDT us Chase Keen MD LAB BLOOD ORDERABLES Final Resul t [facility] [address] [place] [address] * (ABNORMAL) CBC with auto differential (03/11/2025 6:05 AM CDT) WBC 26.12(H) 3.80 - 9.90 K/cumm Hgb 8.9(L) 13.0 - 17.5 g/dL [facility] Hct 29.6(L) 38.9 - 50.3 % [facility] Plt 283 150 - 400 K/cumm [facility] MPV 9.6 9.1 - 12.3 fL [facility] RBC 3.09(L) 4.30 - 5.80 M/cumm [facility] MCV 95.8 81.3 - 96.4 fL [facility] MCH 28.8 27.1 - 33.3 pg [facility] MCHC 30.1(L) 32.3 - 35.7 g/dL [facility] RDW CV 16.6(H) 11.1 - 14.9 % [facility] RDW SD 55.8(H) 35.7 - 48.1 fL [facility] NRBC abs 0.02(H) 0.00 - 0.01 K/cumm [facility] Blood 03/11/2025 6:05 AM CDT 03/11/2025 6:14 AM CDT us Chase Keen MD LAB BLOOD ORDERABLES Final Resul t Performing Organization Address [facility] Co de Phone Number [facility] [address] [place] [address] * POCT glucose (03/10/2025 8:45 PM CDT) Glucose, POC 175 70 - 199 mg/dL Comment: For Glucose values <35 mg/dl when Hematocrit is >60 mg/dl,the test may not accurately detect significant hypoglycemia,and testing in the Laboratory should be considered if clinically indicated. POC Performer [id number] [facility] Blood 03/10/2025 8:45 PM CDT 03/10/2025 8:45 PM CDT us Gil Pierce MD LAB POCT ORDERABLES - DE VICE Final Result Performing Organization Address [facility] Co de Phone Number [facility] [address] [place] [address] * POCT glucose (03/10/2025 4:52 PM CDT) Glucose, POC 146 70 - 199 mg/dL Comment: For Glucose values <35 mg/dl when Hematocrit is >60 mg/dl,the test may not accurately detect significant hypoglycemia,and testing in the Laboratory should be considered if clinically indicated. POC Performer [phone] [facility] Blood 03/10/2025 4:52 PM CDT 03/10/2025 4:52 PM CDT us Gil Pierce MD LAB POCT ORDERABLES - DE VICE Final Result Performing Organization Address [facility]/ZIP Co de Phone Number [facility] [address] [facility] [place] [address] * POCT glucose (03/10/2025 12:58 PM CDT) Glucose, POC 151 70 - 199 mg/dL Comment: For Glucose values <35 mg/dl when Hematocrit is >60 mg/dl,the test may not accurately detect significant hypoglycemia,and testing in the Laboratory should be considered if clinically indicated. POC Performer [phone] [facility] Blood 03/10/2025 12:5 8 PM CDT 03/10/2025 12:58 PM CDT Gil Pierce MD LAB POCT ORDERABLES - DE VICE Final Result Performing Organization Address [facility] Co de Phone Number [facility] [address] [facility] [place] [address] * POCT glucose (03/10/2025 6:19 AM CDT) Glucose, POC 116 70 - 199 mg/dL Comment: For Glucose values <35 mg/dl when Hematocrit is >60 mg/dl,the test may not accurately detect significant hypoglycemia,and testing in the Laboratory should be considered if clinically indicated. POC Performer [phone] [facility] Blood 03/10/2025 6:19 AM CDT 03/10/2025 6:19 AM CDT Gil Pierce MD LAB POCT ORDERABLES - DE VICE Final Result Performing Organization Address City/[facility] Co de Phone Number [facility] [address] [facility] [place] [address] * eGFR (03/10/2025 3:44 AM CDT) eGFR 69 >=60 mL/min/1. 73 m2 Comment: Interpretive Data Reference Interval Normal >/= 90 mL/min/1.73m2 Mildly decreased* 60 - 89 mL/min/1.73m2 Mildly to moderately decreased 45 - 59 mL/min/1.73m2 Moderately to severely decreased 30 - 44 mL/min/1.73m2 Severely decreased 15 - 29 mL/min/1.73m2 Kidney Failure < 15 mL/min/1.73m2 *Relative to young adult level Estimated glomerular filtration rate is determined by the 2020 CKD-EPI equation recommended by the National Kidney [employer] (A Unifying Approach to GFR Estimation: Recommendations of the NKF-ASK Task Force on Reassessing the Inclusion of Race in Diagnosing Kidney Disease, JASN 2020). The CKD-EPI equation should not be used for patients with unstable renal function and has not been validated in children and those over 70. Current interpretive data was last reviewed 2021. Blood 03/10/2025 3:44 AM CDT 03/10/2025 3:58 AM CDT us Chao Vann MD LAB BLOOD ORDERABLES Final Re sult [facility] [address] [place] [address] * (ABNORMAL) Differential, auto (03/10/2025 3:44 AM CDT) Neutrophil abs 20.12(H) 1.50 - 6.50 K/cumm Imm gran abs 0.76(H) 0.00 - 0.10 K/cumm [facility] Lymphocyte abs 2.62 0.80 - 3.30 K/cumm [facility] Monocyte abs 2.16(H) 0.20 - 0.80 K/cumm [facility] Eosinophil abs 0.19 0.00 - 0.50 K/cumm [facility] Basophil abs 0.07 0.00 - 0.10 K/cumm [facility] Neutrophil pct 77.7 % [facility] Comment: Differential consistent with previous result. Interpretive Data Percent cell count reference ranges are not reported, since discordance with absolute values may lead to misinterpretation of CBC data. Current Interpretive Data was last revised on 2018. Imm gran pct 2.9 % [facility] Comment: Interpretive Data Percent cell count reference ranges are not reported, since discordance with absolute values may lead to misinterpretation of CBC data. Current Interpretive Data was last revised on 2018. Lymphocyte pct 10.1 % [facility] Comment: Interpretive Data Percent cell count reference ranges are not reported, since discordance with absolute values may lead to misinterpretation of CBC data. Current Interpretive Data was last revised on 2018. Monocyte pct 8.3 % [facility] Comment: Interpretive Data Percent cell count reference ranges are not reported, since discordance with absolute values may lead to misinterpretation of CBC data. Current Interpretive Data was last revised on 2018. Eosinophil pct 0.7 % [facility] Comment: Interpretive Data Percent cell count reference ranges are not reported, since discordance with absolute values may lead to misinterpretation of CBC data. Current Interpretive Data was last revised on 2018. Basophil pct 0.3 % [facility] Comment: Interpretive Data Percent cell count reference ranges are not reported, since discordance with absolute values may lead to misinterpretation of CBC data. Current Interpretive Data was last revised on 2018. Blood 03/10/2025 3:44 AM CDT 03/10/2025 3:59 AM CDT us Chase Keen MD LAB BLOOD ORDERABLES Final Resul t [facility] [address] [place] [address] * (ABNORMAL) CBC with auto differential (03/10/2025 3:44 AM CDT) WBC 25.92(H) 3.80 - 9.90 K/cumm Hgb 8.4(L) 13.0 - 17.5 g/dL [facility] Hct 27.2(L) 38.9 - 50.3 % [facility] Plt 287 150 - 400 K/cumm [facility] MPV 9.7 9.1 - 12.3 fL [facility] RBC 2.88(L) 4.30 - 5.80 M/cumm [facility] MCV 94.4 81.3 - 96.4 fL [facility] MCH 29.2 27.1 - 33.3 pg [facility] MCHC 30.9(L) 32.3 - 35.7 g/dL [facility] RDW CV 16.4(H) 11.1 - 14.9 % [facility] RDW SD 54.4(H) 35.7 - 48.1 fL [facility] NRBC abs 0.03(H) 0.00 - 0.01 K/cumm [facility] Blood 03/10/2025 3:44 AM CDT 03/10/2025 3:59 AM CDT Chase Keen MD LAB BLOOD ORDERABLES Final Resul t Performing Organization Address City/[facility]/ZIP Co de Phone Number [facility] [address] [place] [address] * Lipase (03/10/2025 3:44 AM CDT) Pathologist [facility] Lipase 87 10 - 99 Units/L Blood 03/10/2025 3:44 AM CDT 03/10/2025 3:58 AM CDT Chao Vann MD LAB BLOOD ORDERABLES Final Re sult Performing Organization Address City/[facility]/ZIP Co de Phone Number [facility] [address] [place] [address] * (ABNORMAL) Basic metabolic panel (03/10/2025 3:44 AM CDT) Pathologist [facility] Sodium 137 135 - 145 mmol/L Potassium, pl 4.7 3.3 - 4.9 mmol/L [facility] Chloride 102 97 - 110 mmol/L [facility] CO2 22 22 - 32 mmol/L [facility] Anion gap 13 2 - 15 mmol/L [facility] BUN 28(H) 6 - 25 mg/dL [facility] Creatinine 1.13 0.80 - 1.30 mg/dL [facility] Glucose 114 70 - 199 mg/dL [facility] Comment: Interpretive Data Fasting glucose >/= 126 mg/dl is diagnostic for diabetes. Fasting is defined as no caloric intake for at least 8 hours. Fasting glucose between 100 mg/dl to 125 mg/dl is diagnostic of prediabetes. In a patient with classic symptoms of hyperglycemia or hyperglycemic crisis, a random glucose >/= 200 mg/dl is diagnostic for diabetes. In the absence of unequivocal hyperglycemia, results should be confirmed by repeat testing. The classification and Diagnosis of Diabetes Diabetes Care 2021; 46: S19-S40. Current interpretive data was last revised 2022. Calcium 7.9(L) 8.5 - 10.3 mg/dL [facility] Blood 03/10/2025 3:44 AM CDT 03/10/2025 3:58 AM CDT us Chao Vann MD LAB BLOOD ORDERABLES Final Re sult Performing Organization Address [facility]/ZIP Co de Phone Number [facility] [address] [place] [address] * (ABNORMAL) POCT glucose (03/09/2025 8:47 PM CDT) [facility] Glucose, POC 210(H) 70 - 199 mg/dL Comment: For Glucose values <35 mg/dl when Hematocrit is >60 mg/dl,the test may not accurately detect significant hypoglycemia,and testing in the Laboratory should be considered if clinically indicated. POC Performer [phone] [facility] Blood 03/09/2025 8:47 PM CDT 03/09/2025 8:47 PM CDT us Gil Pierce MD LAB POCT ORDERABLES - DE VICE Final Result Performing Organization Address [facility]/ZIP Co de Phone Number [facility] [address] [place] [address] * Amylase - Add on lab test (03/09/2025 7:03 PM CDT) Acceptable Yes Blood 03/09/2025 7:03 PM CDT 03/09/2025 7:04 PM CDT Narrative [facility] - 03/09/2025 7:05 PM CDT Name of Test->Amylase Chao Vann MD LAB BLOOD ORDERABLES Final Re sult Performing Organization Address [facility]/ZIP Co de Phone Number [facility] [address] Department [place] [address] * POCT glucose (03/09/2025 5:40 PM CDT) Glucose, POC 129 70 - 199 mg/dL Comment: For Glucose values <35 mg/dl when Hematocrit is >60 mg/dl,the test may not accurately detect significant hypoglycemia,and testing in the Laboratory should be considered if clinically indicated. POC Performer [id number] [facility] Blood 03/09/2025 5:40 PM CDT 03/09/2025 5:40 PM CDT Gil Pierce MD LAB POCT ORDERABLES - DE VICE Final Result Performing Organization Address [facility] Co de Phone Number [facility] [address] [place] [address] * POCT glucose (03/09/2025 12:11 PM CDT) Glucose, POC 165 70 - 199 mg/dL Comment: For Glucose values <35 mg/dl when Hematocrit is >60 mg/dl,the test may not accurately detect significant hypoglycemia,and testing in the Laboratory should be considered if clinically indicated. POC Performer [phone] [facility] Blood 03/09/2025 12:1 1 PM CDT 03/09/2025 12:11 PM CDT Gil Pierce MD LAB POCT ORDERABLES - DE VICE Final Result Performing Organization Address [facility] Co de Phone Number [facility] [address] [place] [address] * Procalcitonin - Add on lab test (03/09/2025 10:43 AM CDT) [facility] Acceptable Yes Blood 03/09/2025 10:4 3 AM CDT 03/09/2025 10:43 AM CDT Narrative [facility] - 03/09/2025 10:43 AM CDT Name of Test->Procalcitonin us Gil Pierce MD LAB BLOOD ORDERABLES Fin al Result Performing Organization Address [facility] Co de Phone Number [facility] [address] [place] [address] * POCT glucose (03/09/2025 6:38 AM CDT) [facility] Glucose, POC 122 70 - 199 mg/dL Comment: For Glucose values <35 mg/dl when Hematocrit is >60 mg/dl,the test may not accurately detect significant hypoglycemia,and testing in the Laboratory should be considered if clinically indicated. POC Performer [phone] [facility] Blood 03/09/2025 6:38 AM CDT 03/09/2025 6:38 AM CDT us Chase Keen MD LAB POCT ORDERABLES - DEVICE Fin al Result Performing Organization Address [facility] Co de Phone Number [facility] [address] [place] [address] * eGFR (03/09/2025 4:54 AM CDT) [facility] eGFR 73 >=60 mL/min/1. 73 m2 Comment: Interpretive Data Reference Interval Normal >/= 90 mL/min/1.73m2 Mildly decreased* 60 - 89 mL/min/1.73m2 Mildly to moderately decreased 45 - 59 mL/min/1.73m2 Moderately to severely decreased 30 - 44 mL/min/1.73m2 Severely decreased 15 - 29 mL/min/1.73m2 Kidney Failure < 15 mL/min/1.73m2 *Relative to young adult level Estimated glomerular filtration rate is determined by the 2020 CKD-EPI equation recommended by the National Kidney Foundation (A Unifying Approach to GFR Estimation: Recommendations of the NKF-ASK Task Force on Reassessing the Inclusion of Race in Diagnosing Kidney Disease, JASN 202). The CKD-EPI equation should not be used for patients with unstable renal function and has not been validated in children and those over 70. Current interpretive data was last reviewed 2021. Blood 03/09/2025 4:54 AM CDT 03/09/2025 4:54 AM CDT us Chase Keen MD LAB BLOOD ORDERABLES Final Resul t [facility] [address] [place] [address] * (ABNORMAL) Differential, auto (03/09/2025 4:54 AM CDT) Neutrophil abs 21.28(H) 1.50 - 6.50 K/cumm Imm gran abs 1.01(H) 0.00 - 0.10 K/cumm [facility] Lymphocyte abs 2.38 0.80 - 3.30 K/cumm [facility] Monocyte abs 2.34(H) 0.20 - 0.80 K/cumm [facility] Eosinophil abs 0.15 0.00 - 0.50 K/cumm [facility] Basophil abs 0.11(H) 0.00 - 0.10 K/cumm [facility] Neutrophil pct 78.0 % [facility] Comment: Differential consistent with previous result. Interpretive Data Percent cell count reference ranges are not reported, since discordance with absolute values may lead to misinterpretation of CBC data. Current Interpretive Data was last revised on 2018. Imm gran pct 3.7 % [facility] Comment: Interpretive Data Percent cell count reference ranges are not reported, since discordance with absolute values may lead to misinterpretation of CBC data. Current Interpretive Data was last revised on 2018. Lymphocyte pct 8.7 % [facility] Comment: Interpretive Data Percent cell count reference ranges are not reported, since discordance with absolute values may lead to misinterpretation of CBC data. Current Interpretive Data was last revised on 2018. Monocyte pct 8.6 % [facility] Comment: Interpretive Data Percent cell count reference ranges are not reported, since discordance with absolute values may lead to misinterpretation of CBC data. Current Interpretive Data was last revised on 2018. Eosinophil pct 0.6 % [facility] Comment: Interpretive Data Percent cell count reference ranges are not reported, since discordance with absolute values may lead to misinterpretation of CBC data. Current Interpretive Data was last revised on 2018. Basophil pct 0.4 % [facility] Comment: Interpretive Data Percent cell count reference ranges are not reported, since discordance with absolute values may lead to misinterpretation of CBC data. Current Interpretive Data was last revised on 2018. Blood 03/09/2025 4:54 AM CDT 03/09/2025 4:54 AM CDT us Chase Keen MD LAB BLOOD ORDERABLES Final Resul t Performing Organization Address City/[facility]/ZIP Co de Phone Number [facility] [address] [place] [address] * Procalcitonin (03/09/2025 4:54 AM CDT) Procalcitonin 0.25 <=0.25 ng/mL Blood 03/09/2025 4:54 AM CDT 03/09/2025 4:54 AM CDT us Gil Pierce MD LAB BLOOD ORDERABLES Fin al Result Performing Organization Address City/[facility]/ZIP Co de Phone Number [facility] [address] [place] [address] * (ABNORMAL) CBC with auto differential (03/09/2025 4:54 AM CDT) WBC 27.27(H) 3.80 - 9.90 K/cumm Hgb 8.5(L) 13.0 - 17.5 g/dL [facility] Hct 27.4(L) 38.9 - 50.3 % [facility] Plt 322 150 - 400 K/cumm [facility] MPV 10.1 9.1 - 12.3 fL [facility] RBC 2.89(L) 4.30 - 5.80 M/cumm [facility] MCV 94.8 81.3 - 96.4 fL [facility] MCH 29.4 27.1 - 33.3 pg [facility] MCHC 31.0(L) 32.3 - 35.7 g/dL [facility] RDW CV 15.8(H) 11.1 - 14.9 % [facility] H[facility] RDW SD 53.3(H) 35.7 - 48.1 fL [facility] NRBC abs 0.07(H) 0.00 - 0.01 K/cumm [facility] Blood 03/09/2025 4:54 AM CDT 03/09/2025 4:54 AM CDT Chase Keen MD LAB BLOOD ORDERABLES Final Resul t Performing Organization Address [facility] Co de Phone Number [facility] [address] [place] [address] * (ABNORMAL) CRP (acute phase) (03/09/2025 4:54 AM CDT) Pathologist [facility] CRP 100.3(H) <=10.0 mg/L Blood 03/09/2025 4:54 AM CDT 03/09/2025 4:54 AM CDT Chase Keen MD LAB BLOOD ORDERABLES Final Resul t Performing Organization Address City/[facility]/ZIP Co de Phone Number [facility] [address] [place] [address] * Amylase (03/09/2025 4:54 AM CDT) Amylase 73 30 - 99 Units/L Blood 03/09/2025 4:54 AM CDT 03/09/2025 4:54 AM CDT Gil Pierce MD LAB BLOOD ORDERABLES [facility] al Result [facility] [address] [place] [address] * (ABNORMAL) Comprehensive metabolic panel (03/09/2025 4:54 AM CDT) Pathologist [facility] Sodium 136 135 - 145 mmol/L Potassium, pl 4.8 3.3 - 4.9 mmol/L [facility] Chloride 102 97 - 110 mmol/L [facility] CO2 22 22 - 32 mmol/L [facility] Anion gap 12 2 - 15 mmol/L [facility] BUN 33(H) 6 - 25 mg/dL [facility] Creatinine 1.08 0.80 - 1.30 mg/dL [facility] Glucose 119 70 - 199 mg/dL [facility] Comment: Interpretive Data Fasting glucose >/= 126 mg/dl is diagnostic for diabetes. Fasting is defined as no caloric intake for at least 8 hours. Fasting glucose between 100 mg/dl to 125 mg/dl is diagnostic of prediabetes. In a patient with classic symptoms of hyperglycemia or hyperglycemic crisis, a random glucose >/= 200 mg/dl is diagnostic for diabetes. In the absence of unequivocal hyperglycemia, results should be confirmed by repeat testing. The classification and Diagnosis of Diabetes Diabetes Care 2021; 46: S19-S40. Current interpretive data was last revised 2022. Calcium 8.0(L) 8.5 - 10.3 mg/dL [facility] Bilirubin, total 0.3 0.1 - 1.2 mg/dL [facility] Protein, pl 5.7(L) 6.5 - 8.5 g/dL [facility] Albumin 2.6(L) 3.5 - 5.0 g/dL [facility] Alk phos 79 40 - 130 Units/L [facility] ALT 25 7 - 55 Units/L [facility] AST 32 10 - 50 Units/L [facility] Blood 03/09/2025 4:54 AM CDT 03/09/2025 4:54 AM CDT Chase Keen MD LAB BLOOD ORDERABLES Final Resul t Performing Organization Address [facility] Co de Phone Number [facility] [address] Department of Laboratories [place], [place] [id number] * (ABNORMAL) POCT glucose (03/08/2025 9:15 PM CDT) [facility] Signature Glucose, POC 204(H) 70 - 199 mg/dL Comment: For Glucose values <35 mg/dl when Hematocrit is >60 mg/dl,the test may not accurately detect significant hypoglycemia,and testing in the Laboratory should be considered if clinically indicated. POC Performer [id number] [facility] Blood 03/08/2025 9:15 PM CDT 03/08/2025 9:15 PM CDT Chase Keen MD LAB POCT ORDERABLES - DEVICE Fin al Result Performing Organization Address [facility] Co de Phone Number [facility] [address] [place] [address] * CT Abdomen W Contrast (03/08/2025 5:36 PM CDT) Anatomical Region Laterality Modality Body N/A Computed Tomogra phy 03/09/2025 6:53 AM CDT Impressions 03/09/2025 6:53 AM CDT 1. High density material around the pancreas and spleen suggesting hemoperitoneum. Grossly stable 2. Correlation with pancreas enzymes to exclude pancreatitis is recommended. Question incidental tiny cystic lesion along medial aspect of uncinate process, possibly side branch intraductal papillary mucinous neoplasm versus sequelae of inflammatory process 3. No evidence of splenic mass or laceration 4. Increasing right pleural effusion with grossly stable pericardial effusion 5. Changes of median sternotomy with ongoing edema in the precardiac region Electronically signed by: Carlyn eRgan M.D. Narrative 03/09/2025 6:53 AM CDT EXAM: CT abdomen with contrast HISTORY: Right upper abdominal pain COMPARISON: 03/01/2025 FINDINGS: CT abdomen was performed with 69 mL Optiray 350 intravenous contrast. There is increase in small right base pleural effusion with ongoing left pleural effusion. Precardiac edema stable. There is no pericardial effusion. There is increased right lower lobe atelectasis with ongoing compressive atelectasis of the left lower lobe. There are new lymph nodes in bilateral cardiophrenic angles measuring up to 6 mm. There are changes of median sternotomy. Liver is normal. There is cholelithiasis with no bile duct dilatation. There is edema around the entire pancreas body and tail with trace edema along the SMV. Tiny cystic lesion projects along the medial aspect of the uncinate process, question component of edema versus tiny intraductal papillary mucinous neoplasm. There is no pancreatic duct dilatation. Correlation for pancreatitis is recommended. There is complex high density fluid extending from the tail the pancreas into the splenic hilum and along the lateral and caudal aspect of the spleen. This corresponds to the high density soft tissue seen on the previous CT. Findings are consistent with left upper quadrant hemoperitoneum. There is no evidence of underlying splenic mass or laceration. Adrenal glands are normal. Kidneys are grossly normal. There is no acute bowel abnormality. There is fluid in the gastrosplenic ligament and mesentery with the hemoperitoneum involving the body and tail the pancreas and the spleen as detailed above. There is no intraperitoneal free air. There is diffuse calcification of aorta and proximal iliac arteries. There is trace mural thrombus in the mid aorta. There is coarse calcification at origin of the celiac artery with mild stenosis suggested. There is trace consultation origin of the SMA with normal perfusion. There is minimal mural thrombus along the midportion of the SMA. There is normal perfusion of the portal venous system including the SMV and splenic vein. Proximal IVC is patent. There is no lymphadenopathy. Abdominal wall is intact. There is mild subcutaneous edema overlying the flanks. There is no acute bone abnormality. Procedure Note Carlyn Regan MD - 03/09/2025 EXAM: CT abdomen with contrast HISTORY: Right upper abdominal pain COMPARISON: 03/01/2025 FINDINGS: CT abdomen was performed with 69 mL Optiray 350 intravenous contrast. There is increase in small right base pleural effusion with ongoing left pleural effusion. Precardiac edema stable. There is no pericardial effusion. There is increased right lower lobe atelectasis with ongoing compressive atelectasis of the left lower lobe. There are new lymph nodes in bilateral cardiophrenic angles measuring up to 6 mm. There are changes of median sternotomy. Liver is normal. There is cholelithiasis with no bile duct dilatation. There is edema around the entire pancreas body and tail with trace edema along the SMV. Tiny cystic lesion projects along the medial aspect of the uncinate process, question component of edema versus tiny intraductal papillary mucinous neoplasm. There is no pancreatic duct dilatation. Correlation for pancreatitis is recommended. There is complex high density fluid extending from the tail the pancreas into the splenic hilum and along the lateral and caudal aspect of the spleen. This corresponds to the high density soft tissue seen on the previous CT. Findings are consistent with left upper quadrant hemoperitoneum. There is no evidence of underlying splenic mass or laceration. Adrenal glands are normal. Kidneys are grossly normal. There is no acute bowel abnormality. There is fluid in the gastrosplenic ligament and mesentery with the hemoperitoneum involving the body and tail the pancreas and the spleen as detailed above. There is no intraperitoneal free air. There is diffuse calcification of aorta and proximal iliac arteries. There is trace mural thrombus in the mid aorta. There is coarse calcification at origin of the celiac artery with mild stenosis suggested. There is trace consultation origin of the SMA with normal perfusion. There is minimal mural thrombus along the midportion of the SMA. There is normal perfusion of the portal venous system including the SMV and splenic vein. Proximal IVC is patent. There is no lymphadenopathy. Abdominal wall is intact. There is mild subcutaneous edema overlying the flanks. There is no acute bone abnormality. IMPRESSION: 1. High density material around the pancreas and spleen suggesting hemoperitoneum. Grossly stable 2. Correlation with pancreas enzymes to exclude pancreatitis is recommended. Question incidental tiny cystic lesion along medial aspect of uncinate process, possibly side branch intraductal papillary mucinous neoplasm versus sequelae of inflammatory process 3. No evidence of splenic mass or laceration 4. Increasing right pleural effusion with grossly stable pericardial effusion 5. Changes of median sternotomy with ongoing edema in the precardiac region Electronically signed by: Carlyn Regan M.D. Chase Keen MD IM CT PROCEDURES Final Result * CT Chest WO Contrast (03/08/2025 5:36 PM CDT) Anatomical Region Laterality Modality Body N/A Computed Tomogra phy 03/09/2025 7:01 AM CDT Impressions 03/09/2025 7:01 AM CDT 1. Anterior mediastinal stranding. If the patient's sternal splitting operation was greater than 4 weeks ago this would be more stranding than expected and could conceivably represent underlying mediastinitis. 2. Bilateral pleural effusions. 3. Left upper quadrant perisplenic stranding. 4. Right subclavian vein thrombophlebitis. Electronically signed by: Joe Larson M.D., MPH Narrative 03/09/2025 7:01 AM CDT EXAMINATION: CT CHEST WO CONTRAST TECHNIQUE: Computed tomographic examination the and pelvis was performed without intravenous contrast using standard protocol. HISTORY: Leukocytosis COMPARISON:12/06/2022 FINDINGS: In the interval there is been development of large bilateral left greater than right pleural effusions and bibasilar atelectasis. There is no focal pneumonic consolidation pneumothorax. There are no pulmonary nodules or masses that would suggest primary or metastatic disease. There is stranding associated with the right subclavian vein. This raises the possibility of an underlying thrombophlebitis. This correlates with the patient's recent ultrasound. There is anterior mediastinal stranding that may be postoperative in nature. If the sternal splitting operation was greater than 4 weeks ago, this is slightly more inflammatory stranding in the mediastinum than expected and could conceivably represent an evolving mediastinitis. The sternal halves or a proximated. There is no findings of sternal dehiscence at this. Small pericardial effusion noted. Changes compatible with coronary artery bypass grafting. Three-vessel coronary artery calcification noted. The visualized upper abdomen demonstrates inflammatory stranding in the left upper quadrant. Osseous windows demonstrate no lytic or blastic lesions. Procedure Note Joe Larson MD - 03/09/2025 EXAMINATION: CT CHEST WO CONTRAST TECHNIQUE: Computed tomographic examination the and pelvis was performed without intravenous contrast using standard protocol. HISTORY: Leukocytosis COMPARISON:12/06/2022 FINDINGS: In the interval there is been development of large bilateral left greater than right pleural effusions and bibasilar atelectasis. There is no focal pneumonic consolidation pneumothorax. There are no pulmonary nodules or masses that would suggest primary or metastatic disease. There is stranding associated with the right subclavian vein. This raises the possibility of an underlying thrombophlebitis. This correlates with the patient's recent ultrasound. There is anterior mediastinal stranding that may be postoperative in nature. If the sternal splitting operation was greater than 4 weeks ago, this is slightly more inflammatory stranding in the mediastinum than expected and could conceivably represent an evolving mediastinitis. The sternal halves or a proximated. There is no findings of sternal dehiscence at this. Small pericardial effusion noted. Changes compatible with coronary artery bypass grafting. Three-vessel coronary artery calcification noted. The visualized upper abdomen demonstrates inflammatory stranding in the left upper quadrant. Osseous windows demonstrate no lytic or blastic lesions. IMPRESSION: 1. Anterior mediastinal stranding. If the patient's sternal splitting operation was greater than 4 weeks ago this would be more stranding than expected and could conceivably represent underlying mediastinitis. 2. Bilateral pleural effusions. 3. Left upper quadrant perisplenic stranding. 4. Right subclavian vein thrombophlebitis. Electronically signed by: Joe Larson M.D., MPH Chase Keen MD [facility] [place] PROCEDURES Final Result * POCT glucose (03/08/2025 5:01 PM CDT) Glucose, POC 126 70 - 199 mg/dL Comment: For Glucose values <35 mg/dl when Hematocrit is >60 mg/dl,the test may not accurately detect significant hypoglycemia,and testing in the Laboratory should be considered if clinically indicated. POC Performer [id number] [facility] Blood 03/08/2025 5:01 PM CDT 03/08/2025 5:01 PM CDT Chase Keen MD LAB POCT ORDERABLES - DEVICE Fin al Result Performing Organization Address [facility] Co de Phone Number [facility] [address] Department [employer] [place], [place] [id number] * eGFR (03/08/2025 4:56 PM CDT) eGFR 71 >=60 mL/min/1. 73 m2 Comment: Interpretive Data Reference Interval Normal >/= 90 mL/min/1.73m2 Mildly decreased* 60 - 89 mL/min/1.73m2 Mildly to moderately decreased 45 - 59 mL/min/1.73m2 Moderately to severely decreased 30 - 44 mL/min/1.73m2 Severely decreased 15 - 29 mL/min/1.73m2 Kidney Failure < 15 mL/min/1.73m2 *Relative to young adult level Estimated glomerular filtration rate is determined by the 2020 CKD-EPI equation recommended by the National Kid[employer] (A Unifying Approach to GFR Estimation: Recommendations of the NKF-ASK Task Force on Reassessing the Inclusion of Race in Diagnosing Kidney Disease, JASN 2020). The CKD-EPI equation should not be used for patients with unstable renal function and has not been validated in children and those over 70. Current interpretive data was last reviewed 2021. Blood 03/08/2025 4:56 PM CDT 03/08/2025 5:02 PM CDT Chase Keen MD LAB BLOOD ORDERABLES Final Resul t Performing Organization Address [facility]/ZIP Co de Phone Number [facility] [address] Department [place] [address] * (ABNORMAL) Comprehensive metabolic panel (03/08/2025 4:56 PM CDT) Pathologist [facility] Sodium 135 135 - 145 mmol/L Potassium, pl 4.6 3.3 - 4.9 mmol/L [facility] Chloride 102 97 - 110 mmol/L [facility] CO2 21(L) 22 - 32 mmol/L [facility] Anion gap 12 2 - 15 mmol/L [facility] BUN 33(H) 6 - 25 mg/dL [facility] Creatinine 1.11 0.80 - 1.30 mg/dL [facility] Glucose 126 70 - 199 mg/dL [facility] Comment: Interpretive Data Fasting glucose >/= 126 mg/dl is diagnostic for diabetes. Fasting is defined as no caloric intake for at least 8 hours. Fasting glucose between 100 mg/dl to 125 mg/dl is diagnostic of prediabetes. In a patient with classic symptoms of hyperglycemia or hyperglycemic crisis, a random glucose >/= 200 mg/dl is diagnostic for diabetes. In the absence of unequivocal hyperglycemia, results should be confirmed by repeat testing. The classification and Diagnosis of Diabetes Diabetes Care 2021; 46: S19-S40. Current interpretive data was last revised 2022. Calcium 8.0(L) 8.5 - 10.3 mg/dL [facility] Bilirubin, total 0.4 0.1 - 1.2 mg/dL [facility] Protein, pl 5.7(L) 6.5 - 8.5 g/dL [facility] Albumin 2.4(L) 3.5 - 5.0 g/dL [facility] Alk phos 79 40 - 130 Units/L [facility] ALT 24 7 - 55 Units/L [facility] AST 30 10 - 50 Units/L [facility] Blood 03/08/2025 4:56 PM CDT 03/08/2025 5:02 PM CDT us Chase Keen MD LAB BLOOD ORDERABLES Final Resul t [facility] [address] [place] [address] * XR Chest 1 View (03/08/2025 4:51 PM CDT) Anatomical Region Laterality Modality Body, Chest N/A Computed Radiogr aphy 03/08/2025 4:54 PM CDT Impressions 03/08/2025 4:54 PM CDT Sternotomy wires are unchanged. There is a left upper extremity peripherally inserted central venous catheter tip that projects over the superior vena cava. Small layering left pleural effusion, mildly increased from the prior exam with increased opacification of left lung base that likely represents components of effusion and increased atelectasis. Minimal atelectasis in the right lung base. No pneumothorax. Stable cardiomegaly. Electronically signed by: Emre Carlisle MD, PHD Narrative 03/08/2025 4:54 PM CDT EXAMINATION: XR CHEST 1 VIEW HISTORY: picc line placement COMPARISON: 03/02/2025 Procedure Note Emre Carlisle MD PhD - 03/08/2025 EXAMINATION: XR CHEST 1 VIEW HISTORY: picc line placement COMPARISON: 03/02/2025 IMPRESSION: Sternotomy wires are unchanged. There is a left upper extremity peripherally inserted central venous catheter tip that projects over the superior vena cava. Small layering left pleural effusion, mildly increased from the prior exam with increased opacification of left lung base that likely represents components of effusion and increased atelectasis. Minimal atelectasis in the right lung base. No pneumothorax. Stable cardiomegaly. Electronically signed by: Emre Carlisle MD, PHD us Suzette MCGUIRE IMG XR PROCEDURES Final Res ult * Blood culture Blood (03/08/2025 4:40 PM CDT) Report Final Report: No growth Blood 03/08/2025 4:40 PM CDT 03/08/2025 4:47 PM CDT Isreal BROWN [facility] - 03/14/2025 7:00 AM CDT From a different site than #1. Collection->Peripheral Interpretive Data 1. Blood cultures are incubated and monitored continuously for 5 days (120 hours). The first negative report is issued within 24 hours of receipt in the laboratory. 2. All positive cultures are resulted and called to physicians/care providers as soon as they are detected. 3. A rapid molecular test for organism identification may be performed using the [employer] Blood Culture Identification panel. This assay detects microbial DNA in a blood culture broth. This assay has been cleared by the [place] Food and Drug Administration and its performance characteristics have been verified by the [facility] Microbiology Laboratory. Interpretive data was last revised on November 09, 2022. Chase Keen MD LAB MICROBIOLOGY - GENERAL ORDER TASNEEM Final Result Performing Organization Address [facility] de Phone Number [facility] [address] [place] [address] * Blood culture Blood (03/08/2025 4:40 PM CDT) Report Final Report: No growth Blood 03/08/2025 4:40 PM CDT 03/08/2025 4:47 PM CDT Narrative [facility] - 03/14/2025 7:00 AM CDT Collection->Peripheral Interpretive Data 1. Blood cultures are incubated and monitored continuously for 5 days (120 hours). The first negative report is issued within 24 hours of receipt in the laboratory. 2. All positive cultures are resulted and called to physicians/care providers as soon as they are detected. 3. A rapid molecular test for organism identification may be performed using the [employer] Blood Culture Identification panel. This assay detects microbial DNA in a blood culture broth. This assay has been cleared by the [place] Food and Drug Administration and its performance characteristics have been verified by the [facility]biology Laboratory. Interpretive data was last revised on November 09, 2022. Chase Keen MD LAB MICROBIOLOGY - GENERAL ORDER TASNEEM Final Result Performing Organization Address [facility] de Phone Number [facility] [address] Department [place] [address] * IN INSJ NON-TUNNELED CENTRAL VENOUS CATH AGE 5 YR/> (03/08/2025 4:28 PM CDT) Narrative Suzette Sanabria PA - 03/08/2025 4:28 PM CDT Suzette Sanabria PA 03/08/2025 4:29 PM PICC Line Insertion Date/Time: 03/08/2025 4:28 PM Performed by: Suzette Sanabria PA Authorized by: Suzette Sanabria PA [place] Protocol: RN Notified of Procedure: yes Informed consent: Risks, benefits, alternatives discussed 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 Patient's stated name/ matches armband: Yes Consent form signed, dated, timed; matches correct patient, intended procedure and site: Yes Imaging: Pertinent imaging reviewed, correctly oriented and match to patient identifiers Supplies, devices and special equipment are available: yes Site/side marked: yes Immediately prior to the procedure a time out was called: a verbal verification by the procedure participants confirmed correct patient identity, correct site/side marked and visible (if applicable); agreement on procedure to be done; and correct patient positioning Have non- routine considerations been assessed?: Yes Indications: Vascular access Anesthesia (see MAR for exact dosage) Anesthesia method: Local infiltration Local anesthetic: Lidocaine 1% Patient position: Flat Skin preparation: Skin prepped with 2% chlorhexidine Provider preparation: Cap, full body drape, gloves, gown, handwashing and mask Location: Left upper extremity brachial vein. Ultrasound guidance: Used for needle insertion, landmarks identified, sterile probe cover used, pre-procedure diagnostic and real-time needle guidance Assessment: Blood return through all ports, free fluid flow and placement verified by x-ray Catheter type: Double lumen (power picc) Catheter placed through introducer: Single Catheter size: 5 Fr Needle inserted, vein idenitified then guidewire inserted easily into vein: Yes Number of attempts: 1 Successful placement: Yes Catheter length (cm): 41 Line securement: Dressing applied and securement device Patient tolerance: Patient tolerated the procedure well with no immediate complications Complications: None Post Procedure Debrief: All guidewires, needles, sponges or other items are accounted for: yes us Suzette MCGUIRE IN CLINIC/BEDSIDE ORDERABLE S Final Result * (ABNORMAL) Urinalysis reflex to microscopic (03/08/2025 3:11 PM CDT) Color, ur Yellow Yellow Clarity, ur Clear Clear [facility] Specific gravity, ur 1.022 1.003 - 1.030 [facility] pH, urine 5.5 [facility] Comment: Interpretive Data U rine pH is affected by diet, medications, systemic acid-base disturbances, and renal tubular function. pH may affect urinary stone formation. For example, urine pH below 6.0 may help reduce the tendency for calcium phosphate stones and pH greater than 6.0 may reduce the tendency for uric acid stone formation. Source: [place] [facility] Current Interpretive Data was last revised on 2017 Protein, ur ql Trace Negative [facility] Glucose, ur ql 4+(A) Negative [facility] Ketones, ur Negative Negative [facility] Bilirubin, ur Negative Negative [facility] Blood, ur Negative Negative [facility] Urobilinogen, ur <2.0 <2.0 mg/dL [facility] Nitrite, ur Negative Negative [facility] Leukocyte esterase, ur Negative Negative [facility] UA reflex comment Reflex conditions for microscopic UA not met. [facility] Urine 03/08/2025 3:11 PM CDT 03/08/2025 3:11 PM CDT Chase Keen MD LAB URINE ORDERABLES Final Resul t Performing Organization Address [facility]/ZIP Co de Phone Number [facility] [address] [place] [address] * POCT glucose (03/08/2025 12:22 PM CDT) Pathologist [facility] Glucose, POC 142 70 - 199 mg/dL Comment: For Glucose values <35 mg/dl when Hematocrit is >60 mg/dl,the test may not accurately detect significant hypoglycemia,and testing in the Laboratory should be considered if clinically indicated. POC Performer [phone] [facility] Blood 03/08/2025 12:2 2 PM CDT 03/08/2025 12:22 PM CDT Chase Keen MD LAB POCT ORDERABLES - DEVICE Fin al Result Performing Organization Address City/[facility]/ZIP Co de Phone Number [facility] [address] Department [place] [address] * (ABNORMAL) Blood smear review (03/08/2025 10:29 AM CDT) Pathologist [facility] RBC morphology Present(A) Anisocytosis Slight(A) [facility] Poikilocytosis Slight(A) [facility] Elliptocytes 3-7/HPF(A) [facility] Platelet estimate Adequate [facility] Morphology scrn See Comment [facility] Comment:PLT: Platelet morpho logy normal Blood 03/08/2025 10:2 9 AM CDT 03/08/2025 10:37 AM CDT us Chase eKen MD LAB BLOOD ORDERABLES Final Resul t [facility] [address] [place] [address] * (ABNORMAL) Differential, auto (03/08/2025 10:29 AM CDT) Neutrophil abs 25.51(H) 1.50 - 6.50 K/cumm Imm gran abs 0.84(H) 0.00 - 0.10 K/cumm [facility] Lymphocyte abs 2.46 0.80 - 3.30 K/cumm [facility] Monocyte abs 2.43(H) 0.20 - 0.80 K/cumm [facility] Eosinophil abs 0.09 0.00 - 0.50 K/cumm [facility] Basophil abs 0.11(H) 0.00 - 0.10 K/cumm [facility] Neutrophil pct 81.2 % [facility] Comment: Interpretive Data Percent cell count reference ranges are not reported, since discordance with absolute values may lead to misinterpretation of CBC data. Current Interpretive Data was last revised on 2018. Imm gran pct 2.7 % [facility] Comment: Interpretive Data Percent cell count reference ranges are not reported, since discordance with absolute values may lead to misinterpretation of CBC data. Current Interpretive Data was last revised on 2018. Lymphocyte pct 7.8 % [facility] Comment: Interpretive Data Percent cell count reference ranges are not reported, since discordance with absolute values may lead to misinterpretation of CBC data. Current Interpretive Data was last revised on 2018. Monocyte pct 7.7 % [facility] Comment: Interpretive Data Percent cell count reference ranges are not reported, since discordance with absolute values may lead to misinterpretation of CBC data. Current Interpretive Data was last revised on 2018. Eosinophil pct 0.3 % [facility] Comment: Interpretive Data Percent cell count reference ranges are not reported, since discordance with absolute values may lead to misinterpretation of CBC data. Current Interpretive Data was last revised on 2018. Basophil pct 0.3 % [facility] Comment: Interpretive Data Percent cell count reference ranges are not reported, since discordance with absolute values may lead to misinterpretation of CBC data. Current Interpretive Data was last revised on 2018. Blood 03/08/2025 10:2 9 AM CDT 03/08/2025 10:37 AM CDT us Chase Keen MD LAB BLOOD ORDERABLES Final Resul t [facility] [address] [place] [address] * (ABNORMAL) CBC with auto differential (03/08/2025 10:29 AM CDT) WBC 31.44(H) 3.80 - 9.90 K/cumm Hgb 9.5(L) 13.0 - 17.5 g/dL [facility] Hct 30.6(L) 38.9 - 50.3 % [facility] Plt 283 150 - 400 K/cumm [facility] MPV 10.0 9.1 - 12.3 fL [facility] RBC 3.28(L) 4.30 - 5.80 M/cumm [facility] MCV 93.3 81.3 - 96.4 fL [facility] MCH 29.0 27.1 - 33.3 pg [facility] MCHC 31.0(L) 32.3 - 35.7 g/dL [facility] RDW CV 15.8(H) 11.1 - 14.9 % [facility] RDW SD 53.2(H) 35.7 - 48.1 fL [facility] NRBC abs 0.03(H) 0.00 - 0.01 K/cumm [facility] Morphologic Screen Results confirmed by manual morphology review. [facility] Blood 03/08/2025 10:2 9 AM CDT 03/08/2025 10:37 AM CDT Result [facility] Chase Keen MD LAB BLOOD ORDERABLES Edited Resu lt - Final Performing Organization Address [facility] de Phone Number [facility] [address] [facility] [place], [place] [id number] * POCT glucose (03/08/2025 6:12 AM CDT) Glucose, POC 155 70 - 199 mg/dL Comment: For Glucose values <35 mg/dl when Hematocrit is >60 mg/dl,the test may not accurately detect significant hypoglycemia,and testing in the Laboratory should be considered if clinically indicated. POC Performer [id number] [facility] Blood 03/08/2025 6:12 AM CDT 03/08/2025 6:12 AM CDT Result [facility] Chase Keen MD LAB POCT ORDERABLES - DEVICE Fin al Result Performing Organization Address [facility] de Phone Number [facility] [address] [facility] [place] [address] * POCT glucose (03/07/2025 9:08 PM CDT) Glucose, POC 110 70 - 199 mg/dL Comment: For Glucose values <35 mg/dl when Hematocrit is >60 mg/dl,the test may not accurately detect significant hypoglycemia,and testing in the Laboratory should be considered if clinically indicated. POC Performer [phone] [facility] Blood 03/07/2025 9:08 PM CDT 03/07/2025 9:08 PM CDT Result [facility] Chase Keen MD LAB POCT ORDERABLES - DEVICE Fin al Result Performing Organization Address [facility] Co de Phone Number [facility] [address] [place] [address] * Lactate (03/07/2025 8:19 PM CDT) Lactate 1.7 0.7 - 2.0 mmol/L Blood 03/07/2025 8:19 PM CDT 03/07/2025 8:23 PM CDT us Chase Keen MD LAB BLOOD ORDERABLES Final Resul t Performing Organization Address [facility] Co de Phone Number [facility] [address] [place] [address] * XR Kub (03/07/2025 7:17 PM CDT) Anatomical Region Laterality Modality Body, Abdomen N/A Computed Radiogr aphy 03/08/2025 12:4 1 AM CDT Impressions 03/08/2025 12:41 AM CDT One view of the abdomen submitted for interpretation. Borderline dilated, gas-filled loops of small bowel in the left hemiabdomen, which may represent mild ileus in the setting of hemoperitoneum. Otherwise normal bowel gas pattern with gas and stool throughout the colon to the level of the rectum. Small left pleural effusion. Intact median sternotomy wires at the superior margin of the [id number]. Calcified gallstone projecting over the expected region of the gallbladder. 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 Partially imaged postsurgical changes of left femur intramedullary nailing. Multilevel degenerative changes in the lumbar spine. Electronically signed by: Jb Brock M.D. Narrative 03/08/2025 12:41 AM CDT EXAMINATION: XR KUB HISTORY: Pain. COMPARISON: CT of the abdomen and pelvis dated 03/01/2025. Procedure Note Jb Brock MD - 03/08/2025 EXAMINATION: XR KUB HISTORY: Pain. COMPARISON: CT of the abdomen and pelvis dated 03/01/2025. IMPRESSION: One view of the abdomen submitted for interpretation. Borderline dilated, gas-filled loops of small bowel in the left hemiabdomen, which may represent mild ileus in the setting of hemoperitoneum. Otherwise normal bowel gas pattern with gas and stool throughout the colon to the level of the rectum. Small left pleural effusion. Intact median sternotomy wires at the superior margin of the [id number]. Calcified gallstone projecting over the expected region of the gallbladder. 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 Partially imaged postsurgical changes of left femur intramedullary nailing. Multilevel degenerative changes in the lumbar spine. Electronically signed by: Jb Brock M.D. Chase Keen MD IMG XR PROCEDURES Final Result * POCT glucose (03/07/2025 5:05 PM CDT) Glucose, POC 153 70 - 199 mg/dL Comment: For Glucose values <35 mg/dl when Hematocrit is >60 mg/dl,the test may not accurately detect significant hypoglycemia,and testing in the Laboratory should be considered if clinically indicated. POC Performer [id number] [facility] Blood 03/07/2025 5:05 PM CDT 03/07/2025 5:05 PM CDT Chase Keen MD LAB POCT ORDERABLES - DEVICE Fin al Result [facility] [address] [place] [address] * (ABNORMAL) POCT glucose (03/07/2025 12:06 PM CDT) Glucose, POC 201(H) 70 - 199 mg/dL Comment: For Glucose values <35 mg/dl when Hematocrit is >60 mg/dl,the test may not accurately detect significant hypoglycemia,and testing in the Laboratory should be considered if clinically indicated. POC Performer [phone] [facility] Blood 03/07/2025 12:0 6 PM CDT 03/07/2025 12:06 PM CDT Chase Keen MD LAB POCT ORDERABLES - DEVICE Fin al Result Performing Organization Address [facility] Co de Phone Number [facility] [address] [facility] [place], [place] [id number] * (ABNORMAL) Hemoglobin and hematocrit (03/07/2025 9:28 AM CDT) Hgb 9.3(L) 13.0 - 17.5 g/dL Hct 29.3(L) 38.9 - 50.3 % [facility] Blood 03/07/2025 9:28 AM CDT 03/07/2025 9:35 AM CDT us Maryjo Deshpande MD LAB BLOOD ORDERABLES Final R esult Performing Organization Address [facility] de Phone Number [facility] [address] [facility] [place], [place] [id number] * POCT glucose (03/07/2025 6:28 AM CDT) Pathologist [facility] Glucose, POC 147 70 - 199 mg/dL Comment: For Glucose values <35 mg/dl when Hematocrit is >60 mg/dl,the test may not accurately detect significant hypoglycemia,and testing in the Laboratory should be considered if clinically indicated. POC Performer [phone] [facility] Blood 03/07/2025 6:28 AM CDT 03/07/2025 6:28 AM CDT Chase Keen MD LAB POCT ORDERABLES - DEVICE David carrillo Result Performing Organization Address [facility] Co de Phone Number [facility] [address] [facility] [place], [place] [id number] * (ABNORMAL) Hemoglobin and hematocrit (03/07/2025 12:22 AM CDT) Hgb 8.5(L) 13.0 - 17.5 g/dL Hct 26.7(L) 38.9 - 50.3 % [facility] Blood 03/07/2025 12:2 2 AM CDT 03/07/2025 1:02 AM CDT Maryjo Deshpande MD LAB BLOOD ORDERABLES Final R esult Performing Organization Address [facility] de Phone Number [facility] [address] [facility] [place] [address] * POCT glucose (03/06/2025 9:27 PM CDT) Glucose, POC 135 70 - 199 mg/dL Comment: For Glucose values <35 mg/dl when Hematocrit is >60 mg/dl,the test may not accurately detect significant hypoglycemia,and testing in the Laboratory should be considered if clinically indicated. POC Performer [id number] [facility] Blood 03/06/2025 9:27 PM CDT 03/06/2025 9:27 PM CDT Chase Keen MD LAB POCT ORDERABLES - DEVICE Fin al Result Performing Organization Address [facility] de Phone Number [facility] [address] [facility] [place] [address] * POCT glucose (03/06/2025 5:15 PM CDT) Glucose, POC 174 70 - 199 mg/dL Comment: For Glucose values <35 mg/dl when Hematocrit is >60 mg/dl,the test may not accurately detect significant hypoglycemia,and testing in the Laboratory should be considered if clinically indicated. POC Performer [phone] [facility] Blood 03/06/2025 5:15 PM CDT 03/06/2025 5:15 PM CDT Chase Keen MD LAB POCT ORDERABLES - DEVICE Fin al Result Performing Organization Address [facility]/State/ZIP Co de Phone Number [facility] [address] [place] [address] * (ABNORMAL) Hemoglobin and hematocrit (03/06/2025 4:55 PM CDT) Hgb 8.7(L) 13.0 - 17.5 g/dL Hct 28.2(L) 38.9 - 50.3 % [facility] Blood 03/06/2025 4:55 PM CDT 03/06/2025 5:10 PM CDT us Maryjo Deshpande MD LAB BLOOD ORDERABLES Final R esult [facility] [address] [place] [address] * US Vein Duplex Upper Extremity Right Limited, Unilateral (03/06/2025 2:31 PM CDT) Anatomical Region Laterality Modality Vascular Right Ultrasound 03/08/2025 10:2 7 AM CDT Impressions 03/08/2025 10:27 AM CDT Evidence of acute DVT in right internal jugular vein, subclavian vein, and axillary veins. Indwelling PICC line identified traversing thrombosed axillary and subclavian veins as described. Superficial thrombophlebitis in right cephalic vein and median cubital vein. Patient's nurse Dave notified of findings at 2:01 p.m. Electronically signed by: Teodoro Law MD Narrative 03/08/2025 10:27 AM CDT UE Venous Duplex RIGHT DATE: 03/06/2025 9:55 AM EXAM: Duplex Imaging Study of the Deep Venous System of the Right Upper Extremity INDICATION: Swelling right upper extremity COMPARISON: None Available FINDINGS: Filling defect: Heterogeneous echogenic material identified within the right internal jugular, subclavian, axillary, cephalic and median cubital veins. Indwelling PICC line was visualized traversing the axillary and subclavian veins. The basilic vein could not be imaged due to PICC line dressing. Compressibility: Internal jugular, subclavian, axillary veins were in compressible. Superficial veins including cephalic, median cubital veins were in compressible. INCIDENTAL FINDINGS: None Procedure Note Teodoro Law MD - 03/08/2025 UE Venous Duplex RIGHT DATE: 03/06/2025 9:55 AM EXAM: Duplex Imaging Study of the Deep Venous System of the Right Upper Extremity INDICATION: Swelling right upper extremity COMPARISON: None Available FINDINGS: Filling defect: Heterogeneous echogenic material identified within the right internal jugular, subclavian, axillary, cephalic and median cubital veins. Indwelling PICC line was visualized traversing the axillary and subclavian veins. The basilic vein could not be imaged due to PICC line dressing. Compressibility: Internal jugular, subclavian, axillary veins were in compressible. Superficial veins including cephalic, median cubital veins were in compressible. INCIDENTAL FINDINGS: None IMPRESSION: Evidence of acute DVT in right internal jugular vein, subclavian vein, and axillary veins. Indwelling PICC line identified traversing thrombosed axillary and subclavian veins as described. Superficial thrombophlebitis in right cephalic vein and median cubital vein. Patient's nurse Dave notified of findings at 2:01 p.m. Electronically signed by: Teodoro Law MD Chase Keen MD [facility] PROCEDURES Final Result * POCT glucose (03/06/2025 1:15 PM CDT) [facility] Glucose, POC 168 70 - 199 mg/dL Comment: For Glucose values <35 mg/dl when Hematocrit is >60 mg/dl,the test may not accurately detect significant hypoglycemia,and testing in the Laboratory should be considered if clinically indicated. POC Performer [phone] [facility] Blood 03/06/2025 1:15 PM CDT 03/06/2025 1:15 PM CDT Chase Keen MD LAB POCT ORDERABLES - DEVICE Fin al Result [facility] [address] [place] [address] * Iron profile - Add on lab test (03/06/2025 10:52 AM CDT) Pathologist [facility] Acceptable Yes Blood 03/06/2025 10:5 2 AM CDT 03/06/2025 10:52 AM CDT Narrative [facility] - 03/06/2025 10:52 AM CDT Name of Test->Iron profile us Balbina Mac NP LAB BLOOD ORDERABLES Fi nal Result Performing Organization Address [facility]/ZIP Co de Phone Number [facility] [address] [place] [address] * (ABNORMAL) Hemoglobin and hematocrit (03/06/2025 10:11 AM CDT) [facility] Hgb 8.8(L) 13.0 - 17.5 g/dL Hct 28.6(L) 38.9 - 50.3 % [facility] Blood 03/06/2025 10:1 1 AM CDT 03/06/2025 10:27 AM CDT us Maryjo Deshpande MD LAB BLOOD ORDERABLES Final R esult Performing Organization Address [facility] Co de Phone Number [facility] [address] [place] [address] * POCT glucose (03/06/2025 6:29 AM CDT) [facility] Glucose, POC 123 70 - 199 mg/dL Comment: For Glucose values <35 mg/dl when Hematocrit is >60 mg/dl,the test may not accurately detect significant hypoglycemia,and testing in the Laboratory should be considered if clinically indicated. POC Performer [id number] [facility] Blood 03/06/2025 6:29 AM CDT 03/06/2025 6:29 AM CDT Chase Keen MD LAB POCT ORDERABLES - DEVICE Fin al Result Performing Organization Address City/[facility] Co de Phone Number [facility] [address] Department [place], [place] [id number] * (ABNORMAL) Hemoglobin and hematocrit (03/06/2025 12:26 AM CDT) Hgb 8.1(L) 13.0 - 17.5 g/dL Hct 25.6(L) 38.9 - 50.3 % [facility] Blood 03/06/2025 12:2 6 AM CDT 03/06/2025 12:43 AM CDT us Maryjo Deshpande MD LAB BLOOD ORDERABLES Final R esult Performing Organization Address [facility] Co de Phone Number [facility] [address] [place] [address] * POCT glucose (03/05/2025 8:39 PM CDT) Glucose, POC 192 70 - 199 mg/dL Comment: For Glucose values <35 mg/dl when Hematocrit is >60 mg/dl,the test may not accurately detect significant hypoglycemia,and testing in the Laboratory should be considered if clinically indicated. POC Performer [phone] [facility] Blood 03/05/2025 8:39 PM CDT 03/05/2025 8:39 PM CDT us Chase Keen MD LAB POCT ORDERABLES - DEVICE Fin al Result Performing Organization Address [facility] Co de Phone Number [facility] [address] [place] [address] * POCT glucose (03/05/2025 4:50 PM CDT) Glucose, POC 147 70 - 199 mg/dL Comment: For Glucose values <35 mg/dl when Hematocrit is >60 mg/dl,the test may not accurately detect significant hypoglycemia,and testing in the Laboratory should be considered if clinically indicated. POC Performer [phone] [facility] Blood 03/05/2025 4:50 PM CDT 03/05/2025 4:50 PM CDT Chase Keen MD LAB POCT ORDERABLES - DEVICE Fin al Result Performing Organization Address [facility] Co de Phone Number [facility] [address] [place] [address] * (ABNORMAL) Hemoglobin and hematocrit (03/05/2025 4:38 PM CDT) Hgb 8.6(L) 13.0 - 17.5 g/dL Hct 27.8(L) 38.9 - 50.3 % [facility] Blood 03/05/2025 4:38 PM CDT 03/05/2025 4:45 PM CDT Maryjo Deshpande MD LAB BLOOD ORDERABLES Final R esult Performing Organization Address [facility] Co de Phone Number [facility] [address] [place] [address] * POCT glucose (03/05/2025 12:32 PM CDT) Glucose, POC 164 70 - 199 mg/dL Comment: For Glucose values <35 mg/dl when Hematocrit is >60 mg/dl,the test may not accurately detect significant hypoglycemia,and testing in the Laboratory should be considered if clinically indicated. POC Performer [id number] [facility] Blood 03/05/2025 12:3 2 PM CDT 03/05/2025 12:32 PM CDT Chase Keen MD LAB POCT ORDERABLES - DEVICE Fin al Result Performing Organization Address [facility] Co de Phone Number [facility] [address] [facility] [place] [address] * POCT glucose (03/05/2025 8:46 AM CDT) Glucose, POC 118 70 - 199 mg/dL Comment: For Glucose values <35 mg/dl when Hematocrit is >60 mg/dl,the test may not accurately detect significant hypoglycemia,and testing in the Laboratory should be considered if clinically indicated. POC Performer [id number] [facility] Blood 03/05/2025 8:46 AM CDT 03/05/2025 8:46 AM CDT Chase Keen MD LAB POCT ORDERABLES - DEVICE Fin al Result Performing Organization Address [facility]/ZIP Co de Phone Number [facility] [address] [facility] [place] [address] * (ABNORMAL) Hemoglobin and hematocrit (03/05/2025 8:45 AM CDT) Hgb 8.7(L) 13.0 - 17.5 g/dL Hct 28.0(L) 38.9 - 50.3 % [facility] Blood 03/05/2025 8:45 AM CDT 03/05/2025 9:06 AM CDT Maryjo Deshpande MD LAB BLOOD ORDERABLES Final R esult Performing Organization Address [facility] Co de Phone Number [facility] [address] Department [place], [place] [id number] * POCT glucose (03/05/2025 6:39 AM CDT) Glucose, POC 136 70 - 199 mg/dL Comment: For Glucose values <35 mg/dl when Hematocrit is >60 mg/dl,the test may not accurately detect significant hypoglycemia,and testing in the Laboratory should be considered if clinically indicated. POC Performer [id number] [facility] Blood 03/05/2025 6:39 AM CDT 03/05/2025 6:39 AM CDT us Cathy Bear MD LAB POCT ORDERABLES - DEVICE Fi nal Result Performing Organization Address [facility] Co de Phone Number [facility] [address] [place] [address] * eGFR (03/05/2025 1:12 AM CDT) eGFR 73 >=60 mL/min/1. 73 m2 Comment: Interpretive Data Reference Interval Normal >/= 90 mL/min/1.73m2 Mildly decreased* 60 - 89 mL/min/1.73m2 Mildly to moderately decreased 45 - 59 mL/min/1.73m2 Moderately to severely decreased 30 - 44 mL/min/1.73m2 Severely decreased 15 - 29 mL/min/1.73m2 Kidney Failure < 15 mL/min/1.73m2 *Relative to young adult level Estimated glomerular filtration rate is determined by the 2020 CKD-EPI equation recommended by the National Kidney Foundation (A Unifying Approach to GFR Estimation: Recommendations of the NKF-ASK Task Force on Reassessing the Inclusion of Race in Diagnosing Kidney Disease, JASN 2020). The CKD-EPI equation should not be used for patients with unstable renal function and has not been validated in children and those over 70. Current interpretive data was last reviewed 2021. Blood 03/05/2025 1:12 AM CDT 03/05/2025 2:07 AM CDT us Maryjo Deshpande MD LAB BLOOD ORDERABLES Final R esult Performing Organization Address [facility] Co de Phone Number [facility] [address] [place] [address] * (ABNORMAL) Iron profile w/ IBC (03/05/2025 1:12 AM CDT) Pathologist [facility] Iron 11(L) 50 - 150 mcg/dL TIBC 165(L) 250 - 400 mcg/dL [facility] Transferrin saturation 7(L) 20 - 50 % [facility] Blood 03/05/2025 1:12 AM CDT 03/05/2025 2:07 AM CDT us Chase Keen MD LAB BLOOD ORDERABLES Final Resul t Performing Organization Address [facility]/ZIP Co de Phone Number [facility] [address] [place] [address] * (ABNORMAL) CBC without differential (03/05/2025 1:12 AM CDT) WBC 23.20(H) 3.80 - 9.90 K/cumm Hgb 8.7(L) 13.0 - 17.5 g/dL [facility] Hct 27.7(L) 38.9 - 50.3 % [facility] Plt 365 150 - 400 K/cumm [facility] MPV 11.3 9.1 - 12.3 fL [facility] RBC 2.95(L) 4.30 - 5.80 M/cumm [facility] MCV 93.9 81.3 - 96.4 fL [facility] MCH 29.5 27.1 - 33.3 pg [facility] MCHC 31.4(L) 32.3 - 35.7 g/dL [facility] RDW CV 15.0(H) 11.1 - 14.9 % [facility] RDW SD 50.6(H) 35.7 - 48.1 fL [facility] NRBC abs 0.00 0.00 - 0.01 K/cumm [facility] Blood 03/05/2025 1:12 AM CDT 03/05/2025 2:07 AM CDT us Maryjo Deshpande MD LAB BLOOD ORDERABLES Final R esult [facility] [address] Department [employer] [place], [place] [id number] * Magnesium (03/05/2025 1:12 AM CDT) Magnesium 2.0 1.4 - 2.5 mg/dL Blood 03/05/2025 1:12 AM CDT 03/05/2025 2:07 AM CDT us Maryjo Deshpande MD LAB BLOOD ORDERABLES Final R esult Performing Organization Address City/[facility]/ZIP Co de Phone Number [facility] [address] [place] [address] * (ABNORMAL) Renal function panel (03/05/2025 1:12 AM CDT) [facility] Sodium 138 135 - 145 mmol/L Potassium, pl 4.2 3.3 - 4.9 mmol/L [facility] Chloride 103 97 - 110 mmol/L [facility] CO2 21(L) 22 - 32 mmol/L [facility] Anion gap 14 2 - 15 mmol/L [facility] BUN 53(H) 6 - 25 mg/dL [facility] Creatinine 1.08 0.80 - 1.30 mg/dL [facility] Glucose 146 70 - 199 mg/dL [facility] Comment: Interpretive Data Fasting glucose >/= 126 mg/dl is diagnostic for diabetes. Fasting is defined as no caloric intake for at least 8 hours. Fasting glucose between 100 mg/dl to 125 mg/dl is diagnostic of prediabetes. In a patient with classic symptoms of hyperglycemia or hyperglycemic crisis, a random glucose >/= 200 mg/dl is diagnostic for diabetes. In the absence of unequivocal hyperglycemia, results should be confirmed by repeat testing. The classification and Diagnosis of Diabetes Diabetes Care 2021; 46: S19-S40. Current interpretive data was last revised 2022. Calcium 7.9(L) 8.5 - 10.3 mg/dL [facility] Phosphorus, pl 3.0 2.3 - 4.5 mg/dL [facility] Albumin 2.7(L) 3.5 - 5.0 g/dL [facility] Blood 03/05/2025 1:12 AM CDT 03/05/2025 2:07 AM CDT us Maryjo Deshpande MD LAB BLOOD ORDERABLES Final R esult Performing Organization Address City/[facility]/ZIP Co de Phone Number [facility] [address] [place] [address] * POCT glucose (03/04/2025 9:32 PM CDT) Glucose, POC 148 70 - 199 mg/dL Comment: For Glucose values <35 mg/dl when Hematocrit is >60 mg/dl,the test may not accurately detect significant hypoglycemia,and testing in the Laboratory should be considered if clinically indicated. POC Performer [id number] [facility] Blood 03/04/2025 9:32 PM CDT 03/04/2025 9:32 PM CDT us Cathy Bear MD LAB POCT ORDERABLES - DEVICE Fi nal Result Performing Organization Address [facility] Co de Phone Number [facility] [address] [facility] [place] [address] * POCT glucose (03/04/2025 6:17 PM CDT) Glucose, POC 150 70 - 199 mg/dL Comment: For Glucose values <35 mg/dl when Hematocrit is >60 mg/dl,the test may not accurately detect significant hypoglycemia,and testing in the Laboratory should be considered if clinically indicated. POC Performer [id number] [facility] Blood 03/04/2025 6:17 PM CDT 03/04/2025 6:17 PM CDT us Cathy Bear MD LAB POCT ORDERABLES - DEVICE Fi nal Result [facility] [address] [facility] [place] [address] * Sepsis Lactate w/ Reflex (03/04/2025 12:56 PM CDT) Sepsis Lactate 1.7 0.7 - 2.0 mmol/L Blood 03/04/2025 12:5 6 PM CDT 03/04/2025 1:08 PM CDT Suzette MCGUIRE LAB BLOOD ORDERABLES Final Result Performing Organization Address [facility]/ZIP Co de Phone Number [facility] [address] [place] [employer] [place] [address] * (ABNORMAL) eGFR (03/04/2025 12:56 PM CDT) eGFR 55(L) >=60 mL/min/1. 73 m2 Comment: Interpretive Data Reference Interval Normal >/= 90 mL/min/1.73m2 Mildly decreased* 60 - 89 mL/min/1.73m2 Mildly to moderately decreased 45 - 59 mL/min/1.73m2 Moderately to severely decreased 30 - 44 mL/min/1.73m2 Severely decreased 15 - 29 mL/min/1.73m2 Kidney Failure < 15 mL/min/1.73m2 *Relative to young adult level Estimated glomerular filtration rate is determined by the 2020 CKD-EPI equation recommended by the National Kidney Foundation (A Unifying Approach to GFR Estimation: Recommendations of the NKF-ASK Task Force on Reassessing the Inclusion of Race in Diagnosing Kidney Disease, JASN 2020). The CKD-EPI equation should not be used for patients with unstable renal function and has not been validated in children and those over 70. Current interpretive data was last reviewed 2021. Blood 03/04/2025 12:5 6 PM CDT 03/04/2025 1:12 PM CDT Suzette MCGUIRE LAB BLOOD ORDERABLES Final Result [facility] [address] Department [place], [place] [id number] * (ABNORMAL) Hemoglobin and hematocrit (03/04/2025 12:56 PM CDT) Hgb 8.9(L) 13.0 - 17.5 g/dL Hct 28.4(L) 38.9 - 50.3 % [facility] Blood 03/04/2025 12:5 6 PM CDT 03/04/2025 1:15 PM CDT Maryjo Deshpande MD LAB BLOOD ORDERABLES Final R esult [facility] [address] [place] [address] * (ABNORMAL) Comprehensive metabolic panel (03/04/2025 12:56 PM CDT) Sodium 137 135 - 145 mmol/L Potassium, pl 4.2 3.3 - 4.9 mmol/L [facility] Chloride 103 97 - 110 mmol/L [facility] CO2 20(L) 22 - 32 mmol/L [facility] Anion gap 14 2 - 15 mmol/L [facility] BUN 65(H) 6 - 25 mg/dL [facility] Creatinine 1.36(H) 0.80 - 1.30 mg/dL [facility] Glucose 213(H) 70 - 199 mg/dL [facility] Comment: Interpretive Data Fasting glucose >/= 126 mg/dl is diagnostic for diabetes. Fasting is defined as no caloric intake for at least 8 hours. Fasting glucose between 100 mg/dl to 125 mg/dl is diagnostic of prediabetes. In a patient with classic symptoms of hyperglycemia or hyperglycemic crisis, a random glucose >/= 200 mg/dl is diagnostic for diabetes. In the absence of unequivocal hyperglycemia, results should be confirmed by repeat testing. The classification and Diagnosis of Diabetes Diabetes Care 202; 46: S19-S40. Current interpretive data was last revised 2022. Calcium 8.0(L) 8.5 - 10.3 mg/dL [facility] Bilirubin, total 0.5 0.1 - 1.2 mg/dL [facility] Protein, pl 6.0(L) 6.5 - 8.5 g/dL [facility] Albumin 2.7(L) 3.5 - 5.0 g/dL [facility] Alk phos 80 40 - 130 Units/L [facility] ALT 31 7 - 55 Units/L [facility] AST 42 10 - 50 Units/L [facility] Blood 03/04/2025 12:5 6 PM CDT 03/04/2025 1:12 PM CDT us Suzette MCGUIRE LAB BLOOD ORDERABLES Final Result Performing Organization Address [facility]/ZIP Co de Phone Number [facility] [address] [place] [address] * (ABNORMAL) POCT glucose (03/04/2025 12:32 PM CDT) Glucose, POC 243(H) 70 - 199 mg/dL Comment: For Glucose values <35 mg/dl when Hematocrit is >60 mg/dl,the test may not accurately detect significant hypoglycemia,and testing in the Laboratory should be considered if clinically indicated. POC Performer [id number] [facility] Blood 03/04/2025 12:3 2 PM CDT 03/04/2025 12:32 PM CDT us Cathy Bear MD LAB POCT ORDERABLES - DEVICE Fi nal Result Performing Organization Address [facility] Co de Phone Number [facility] [address] [place] [address] * (ABNORMAL) Hemoglobin and hematocrit (03/04/2025 7:54 AM CDT) Hgb 7.7(L) 13.0 - 17.5 g/dL Hct 25.4(L) 38.9 - 50.3 % [facility] Blood 03/04/2025 7:54 AM CDT 03/04/2025 8:02 AM CDT Maryjo Deshpande MD LAB BLOOD ORDERABLES Final R esult Performing Organization Address City/[facility]/ZIP Co de Phone Number [facility] [address] Department [place], [place] [id number] * POCT glucose (03/04/2025 7:53 AM CDT) Glucose, POC 131 70 - 199 mg/dL Comment: For Glucose values <35 mg/dl when Hematocrit is >60 mg/dl,the test may not accurately detect significant hypoglycemia,and testing in the Laboratory should be considered if clinically indicated. POC Performer [id number] [facility] Blood 03/04/2025 7:53 AM CDT 03/04/2025 7:53 AM CDT Maryjo Deshpande MD LAB POCT ORDERABLES - DEVICE Final Result Performing Organization Address [facility] Co de Phone Number [facility] [address] [facility] [place] [address] * POCT glucose (03/04/2025 4:30 AM CDT) Glucose, POC 131 70 - 199 mg/dL Comment: For Glucose values <35 mg/dl when Hematocrit is >60 mg/dl,the test may not accurately detect significant hypoglycemia,and testing in the Laboratory should be considered if clinically indicated. POC Performer [id number] [facility] Blood 03/04/2025 4:30 AM CDT 03/04/2025 4:30 AM CDT Maryjo Deshpande MD LAB POCT ORDERABLES - DEVICE Final Result Performing Organization Address [facility] Co de Phone Number [facility] [address] [facility] [place] [employer] [place] [address] * (ABNORMAL) eGFR (03/04/2025 12:55 AM CDT) eGFR 48(L) >=60 mL/min/1. 73 m2 Comment: Interpretive Data Reference Interval Normal >/= 90 mL/min/1.73m2 Mildly decreased* 60 - 89 mL/min/1.73m2 Mildly to moderately decreased 45 - 59 mL/min/1.73m2 Moderately to severely decreased 30 - 44 mL/min/1.73m2 Severely decreased 15 - 29 mL/min/1.73m2 Kidney Failure < 15 mL/min/1.73m2 *Relative to young adult level Estimated glomerular filtration rate is determined by the 2020 CKD-EPI equation recommended by the National Kidney Foundation (A Unifying Approach to GFR Estimation: Recommendations of the NKF-ASK Task Force on Reassessing the Inclusion of Race in Diagnosing Kidney Disease, JASN 2020). The CKD-EPI equation should not be used for patients with unstable renal function and has not been validated in children and those over 70. Current interpretive data was last reviewed 2021. Blood 03/04/2025 12:5 5 AM CDT 03/04/2025 1:01 AM CDT us Maryjo Deshpande MD LAB BLOOD ORDERABLES Final R esult [facility] [address] [place] [address] * (ABNORMAL) CBC without differential (03/04/2025 12:55 AM CDT) WBC 14.59(H) 3.80 - 9.90 K/cumm Hgb 7.5(L) 13.0 - 17.5 g/dL [facility] Hct 23.9(L) 38.9 - 50.3 % [facility] Plt 317 150 - 400 K/cumm [facility] MPV 11.4 9.1 - 12.3 fL [facility] RBC 2.56(L) 4.30 - 5.80 M/cumm [facility] MCV 93.4 81.3 - 96.4 fL [facility] MCH 29.3 27.1 - 33.3 pg [facility] MCHC 31.4(L) 32.3 - 35.7 g/dL [facility] RDW CV 14.8 11.1 - 14.9 % [facility] RDW SD 50.7(H) 35.7 - 48.1 fL [facility] NRBC abs 0.02(H) 0.00 - 0.01 K/cumm [facility] Blood 03/04/2025 12:5 5 AM CDT 03/04/2025 1:01 AM CDT Maryjo Deshpande MD LAB BLOOD ORDERABLES Final R esult Performing Organization Address [facility] Co de Phone Number [facility] [address] [facility] [place] [address] * Phosphorus (03/04/2025 12:55 AM CDT) Phosphorus, pl 2.5 2.3 - 4.5 mg/dL Blood 03/04/2025 12:5 5 AM CDT 03/04/2025 1:01 AM CDT Maryjo Deshpande MD LAB BLOOD ORDERABLES Final R esult Performing Organization Address [facility] Co de Phone Number [facility] [address] [facility] [place] [address] * Magnesium (03/04/2025 12:55 AM CDT) Magnesium 2.3 1.4 - 2.5 mg/dL Blood 03/04/2025 12:5 5 AM CDT 03/04/2025 1:01 AM CDT Maryjo Deshpande MD LAB BLOOD ORDERABLES Final R esult Performing Organization Address [facility] Co de Phone Number [facility] [address] [facility] [place] [address] * Bilirubin, direct (03/04/2025 12:55 AM CDT) Bilirubin, direct 0.2 0.1 - 0.3 mg/dL Blood 03/04/2025 12:5 5 AM CDT 03/04/2025 1:01 AM CDT Maryjo Deshpande MD LAB BLOOD ORDERABLES Final R esult [facility] [address] [place] [address] * (ABNORMAL) Comprehensive metabolic panel (03/04/2025 12:55 AM CDT) Sodium 139 135 - 145 mmol/L Potassium, pl 3.5 3.3 - 4.9 mmol/L [facility] Chloride 104 97 - 110 mmol/L [facility] CO2 21(L) 22 - 32 mmol/L [facility] Anion gap 14 2 - 15 mmol/L [facility] BUN 76(H) 6 - 25 mg/dL [facility] Creatinine 1.53(H) 0.80 - 1.30 mg/dL [facility] Glucose 122 70 - 199 mg/dL [facility] Comment: Interpretive Data Fasting glucose >/= 126 mg/dl is diagnostic for diabetes. Fasting is defined as no caloric intake for at least 8 hours. Fasting glucose between 100 mg/dl to 125 mg/dl is diagnostic of prediabetes. In a patient with classic symptoms of hyperglycemia or hyperglycemic crisis, a random glucose >/= 200 mg/dl is diagnostic for diabetes. In the absence of unequivocal hyperglycemia, results should be confirmed by repeat testing. The classification and Diagnosis of Diabetes Diabetes Care 202; 46: S19-S40. Current interpretive data was last revised 2022. Calcium 7.6(L) 8.5 - 10.3 mg/dL [facility] Bilirubin, total 0.5 0.1 - 1.2 mg/dL [facility] Protein, pl 5.8(L) 6.5 - 8.5 g/dL [facility] Albumin 2.7(L) 3.5 - 5.0 g/dL [facility] Alk phos 71 40 - 130 Units/L [facility] ALT 29 7 - 55 Units/L [facility] AST 52(H) 10 - 50 Units/L [facility] Blood 03/04/2025 12:5 5 AM CDT 03/04/2025 1:01 AM CDT Maryjo Deshpande MD LAB BLOOD ORDERABLES Final R esult Performing Organization Address [facility] Co de Phone Number [facility] [address] [facility] [place] [address] * POCT glucose (03/04/2025 12:34 AM CDT) Glucose, POC 127 70 - 199 mg/dL Comment: For Glucose values <35 mg/dl when Hematocrit is >60 mg/dl,the test may not accurately detect significant hypoglycemia,and testing in the Laboratory should be considered if clinically indicated. POC Performer [phone] [facility] Blood 03/04/2025 12:3 4 AM CDT 03/04/2025 12:34 AM CDT Maryjo Deshpande MD LAB POCT ORDERABLES - DEVICE Final Result Performing Organization Address [facility] de Phone Number [facility] [address] [facility] [place] [address] * POCT glucose (03/03/2025 8:29 PM CDT) Glucose, POC 155 70 - 199 mg/dL Comment: For Glucose values <35 mg/dl when Hematocrit is >60 mg/dl,the test may not accurately detect significant hypoglycemia,and testing in the Laboratory should be considered if clinically indicated. POC Performer [id number] [facility] Blood 03/03/2025 8:29 PM CDT 03/03/2025 8:29 PM CDT Maryjo Deshpande MD LAB POCT ORDERABLES - DEVICE Final Result Performing Organization Address [facility] de Phone Number [facility] [address] [facility] [place], [place] [id number] * (ABNORMAL) Hemoglobin and hematocrit (03/03/2025 5:29 PM CDT) Hgb 7.8(L) 13.0 - 17.5 g/dL Hct 25.2(L) 38.9 - 50.3 % [facility] Blood 03/03/2025 5:29 PM CDT 03/03/2025 5:32 PM CDT Maryjo Deshpande MD LAB BLOOD ORDERABLES Final R esult Performing Organization Address [facility] Co de Phone Number [facility] [address] [facility] [place] [address] * POCT glucose (03/03/2025 5:15 PM CDT) Glucose, POC 156 70 - 199 mg/dL Comment: For Glucose values <35 mg/dl when Hematocrit is >60 mg/dl,the test may not accurately detect significant hypoglycemia,and testing in the Laboratory should be considered if clinically indicated. POC Performer [id number] [facility] Blood 03/03/2025 5:15 PM CDT 03/03/2025 5:15 PM CDT Maryjo Deshpande MD LAB POCT ORDERABLES - DEVICE Final Result Performing Organization Address [facility] de Phone Number [facility] [address] [facility] [place] [address] * (ABNORMAL) POCT glucose (03/03/2025 12:13 PM CDT) Glucose, POC 265(H) 70 - 199 mg/dL Comment: For Glucose values <35 mg/dl when Hematocrit is >60 mg/dl,the test may not accurately detect significant hypoglycemia,and testing in the Laboratory should be considered if clinically indicated. POC Performer [phone] [facility] Blood 03/03/2025 12:1 3 PM CDT 03/03/2025 12:13 PM CDT Maryjo Dsehpande MD LAB POCT ORDERABLES - DEVICE Final Result Performing Organization Address [facility]/ZIP Co de Phone Number [facility] [address] [place] [address] * (ABNORMAL) Hemoglobin and hematocrit (03/03/2025 9:10 AM CDT) [facility] Hgb 8.0(L) 13.0 - 17.5 g/dL Hct 25.7(L) 38.9 - 50.3 % [facility] Blood 03/03/2025 9:10 AM CDT 03/03/2025 9:25 AM CDT Maryjo Deshpande MD LAB BLOOD ORDERABLES Final R esult Performing Organization Address [facility] Co de Phone Number [facility] [address] [place] [employer] [place] [address] * POCT glucose (03/03/2025 8:05 AM CDT) [facility] Glucose, POC 143 70 - 199 mg/dL Comment: For Glucose values <35 mg/dl when Hematocrit is >60 mg/dl,the test may not accurately detect significant hypoglycemia,and testing in the Laboratory should be considered if clinically indicated. POC Performer [id number] [facility] Blood 03/03/2025 8:05 AM CDT 03/03/2025 8:05 AM CDT Maryjo Deshpande MD LAB POCT ORDERABLES - DEVICE Final Result Performing Organization Address City/[facility]/ZIP Co de Phone Number [facility] [address] [place] [address] * (ABNORMAL) eGFR (03/03/2025 5:13 AM CDT) [facility] eGFR 35(L) >=60 mL/min/1. 73 m2 Comment: Interpretive Data Reference Interval Normal >/= 90 mL/min/1.73m2 Mildly decreased* 60 - 89 mL/min/1.73m2 Mildly to moderately decreased 45 - 59 mL/min/1.73m2 Moderately to severely decreased 30 - 44 mL/min/1.73m2 Severely decreased 15 - 29 mL/min/1.73m2 Kidney Failure < 15 mL/min/1.73m2 *Relative to young adult level Estimated glomerular filtration rate is determined by the 2020 CKD-EPI equation recommended by the National Kidney Foundation (A Unifying Approach to GFR Estimation: Recommendations of the NKF-ASK Task Force on Reassessing the Inclusion of Race in Diagnosing Kidney Disease, JASN 2020). The CKD-EPI equation should not be used for patients with unstable renal function and has not been validated in children and those over 70. Current interpretive data was last reviewed 2021. Blood 03/03/2025 5:13 AM CDT 03/03/2025 5:19 AM CDT us Maryjo Deshpande MD LAB BLOOD ORDERABLES Final R esult [facility] [address] [place] [address] * (ABNORMAL) CBC without differential (03/03/2025 5:13 AM CDT) WBC 14.06(H) 3.80 - 9.90 K/cumm Hgb 7.5(L) 13.0 - 17.5 g/dL [facility] Hct 23.6(L) 38.9 - 50.3 % [facility] Plt 296 150 - 400 K/cumm [facility] MPV 12.1 9.1 - 12.3 fL [facility] RBC 2.57(L) 4.30 - 5.80 M/cumm [facility] MCV 91.8 81.3 - 96.4 fL [facility] MCH 29.2 27.1 - 33.3 pg [facility] MCHC 31.8(L) 32.3 - 35.7 g/dL [facility] RDW CV 14.9 11.1 - 14.9 % [facility] RDW SD 49.9(H) 35.7 - 48.1 fL [facility] NRBC abs 0.00 0.00 - 0.01 K/cumm [facility] Blood 03/03/2025 5:13 AM CDT 03/03/2025 5:18 AM CDT Maryjo Deshpande MD LAB BLOOD ORDERABLES Final R esult Performing Organization Address [facility] Co de Phone Number [facility] [address] [facility] [place] [address] * (ABNORMAL) Magnesium (03/03/2025 5:13 AM CDT) Magnesium 2.6(H) 1.4 - 2.5 mg/dL Blood 03/03/2025 5:13 AM CDT 03/03/2025 5:19 AM CDT Maryjo Deshpande MD LAB BLOOD ORDERABLES Final R esult Performing Organization Address [facility] [facility] de Phone Number [facility] [address] [facility] [place] [address] * (ABNORMAL) Renal function panel (03/03/2025 5:13 AM CDT) Pathologist [facility] Sodium 141 135 - 145 mmol/L Potassium, pl 3.7 3.3 - 4.9 mmol/L [facility] Chloride 104 97 - 110 mmol/L [facility] CO2 21(L) 22 - 32 mmol/L [facility] Anion gap 16(H) 2 - 15 mmol/L [facility] BUN 97(H) 6 - 25 mg/dL [facility] Creatinine 1.98(H) 0.80 - 1.30 mg/dL [facility] Glucose 127 70 - 199 mg/dL [facility] Comment: Interpretive Data Fasting glucose >/= 126 mg/dl is diagnostic for diabetes. Fasting is defined as no caloric intake for at least 8 hours. Fasting glucose between 100 mg/dl to 125 mg/dl is diagnostic of prediabetes. In a patient with classic symptoms of hyperglycemia or hyperglycemic crisis, a random glucose >/= 200 mg/dl is diagnostic for diabetes. In the absence of unequivocal hyperglycemia, results should be confirmed by repeat testing. The classification and Diagnosis of Diabetes Diabetes Care 2021; 46: S19-S40. Current interpretive data was last revised 2022. Calcium 8.1(L) 8.5 - 10.3 mg/dL [facility] Phosphorus, pl 3.6 2.3 - 4.5 mg/dL [facility] Albumin 2.8(L) 3.5 - 5.0 g/dL [facility] Blood 03/03/2025 5:13 AM CDT 03/03/2025 5:19 AM CDT Maryjo Deshpande MD LAB BLOOD ORDERABLES Final R esult Performing Organization Address [facility] Co de Phone Number [facility] [address] Department [employer] [place], [place] [id number] * POCT glucose (03/03/2025 5:11 AM CDT) Glucose, POC 135 70 - 199 mg/dL Comment: For Glucose values <35 mg/dl when Hematocrit is >60 mg/dl,the test may not accurately detect significant hypoglycemia,and testing in the Laboratory should be considered if clinically indicated. POC Performer [phone] [facility] Blood 03/03/2025 5:11 AM CDT 03/03/2025 5:11 AM CDT Maryjo Deshpande MD LAB POCT ORDERABLES - DEVICE Final Result Performing Organization Address City/[facility]/ZIP Co de Phone Number [facility] [address] Department of [place], [place] [id number] * (ABNORMAL) Hemoglobin and hematocrit (03/02/2025 11:36 PM CDT) Hgb 7.3(L) 13.0 - 17.5 g/dL Hct 22.8(L) 38.9 - 50.3 % [facility] Blood 03/02/2025 11:3 6 PM CDT 03/02/2025 11:44 PM CDT Maryjo Deshpande MD LAB BLOOD ORDERABLES Final R esult Performing Organization Address [facility] Co de Phone Number [facility] [address] [facility] [place] [address] * POCT glucose (03/02/2025 11:35 PM CDT) Glucose, POC 146 70 - 199 mg/dL Comment: For Glucose values <35 mg/dl when Hematocrit is >60 mg/dl,the test may not accurately detect significant hypoglycemia,and testing in the Laboratory should be considered if clinically indicated. POC Performer [phone] [facility] Blood 03/02/2025 11:3 5 PM CDT 03/02/2025 11:35 PM CDT us Maryjo Deshpande MD LAB POCT ORDERABLES - DEVICE Final Result Performing Organization Address [facility] Co de Phone Number [facility] [address] [place] [address] * POCT glucose (03/02/2025 7:57 PM CDT) Glucose, POC 189 70 - 199 mg/dL Comment: For Glucose values <35 mg/dl when Hematocrit is >60 mg/dl,the test may not accurately detect significant hypoglycemia,and testing in the Laboratory should be considered if clinically indicated. POC Performer [phone] [facility] Blood 03/02/2025 7:57 PM CDT 03/02/2025 7:57 PM CDT Maryjo Deshpande MD LAB POCT ORDERABLES - DEVICE Final Result Performing Organization Address [facility] Co de Phone Number [facility] [address] [place] [address] * (ABNORMAL) Hemoglobin and hematocrit (03/02/2025 6:05 PM CDT) Hgb 7.8(L) 13.0 - 17.5 g/dL Hct 25.2(L) 38.9 - 50.3 % [facility] Blood 03/02/2025 6:05 PM CDT 03/02/2025 6:10 PM CDT us Maryjo Deshpande MD LAB BLOOD ORDERABLES Final R esult Performing Organization Address [facility] Co de Phone Number [facility] [address] [place] [address] * POCT glucose (03/02/2025 5:08 PM CDT) [facility] Glucose, POC 150 70 - 199 mg/dL Comment: For Glucose values <35 mg/dl when Hematocrit is >60 mg/dl,the test may not accurately detect significant hypoglycemia,and testing in the Laboratory should be considered if clinically indicated. POC Performer [phone] [facility] Blood 03/02/2025 5:08 PM CDT 03/02/2025 5:08 PM CDT us Maryjo Deshpande MD LAB POCT ORDERABLES - DEVICE Final Result Performing Organization Address [facility] Co de Phone Number [facility] [address] Department [place], [place] [phone] * Lactate (03/02/2025 2:26 PM CDT) [facility] Lactate 1.0 0.7 - 2.0 mmol/L Blood 03/02/2025 2:26 PM CDT 03/02/2025 2:31 PM CDT Rehana Shipley DO LAB BLOOD ORDERABLES F inal Result Performing Organization Address [facility] Co de Phone Number [facility] [address] [place] [address] * (ABNORMAL) Hemoglobin and hematocrit (03/02/2025 2:26 PM CDT) Hgb 7.3(L) 13.0 - 17.5 g/dL Hct 22.8(L) 38.9 - 50.3 % [facility] Blood 03/02/2025 2:26 PM CDT 03/02/2025 2:35 PM CDT us Maryjo Deshpande MD LAB BLOOD ORDERABLES Final R esult [facility] [address] Department [place] [address] * XR Chest 1 View (03/02/2025 2:09 PM CDT) Anatomical Region Laterality Modality Body, Chest N/A Computed Radiogr aphy 03/02/2025 2:29 PM CDT Impressions 03/02/2025 2:29 PM CDT Median sternotomy wires are unchanged. There is a right upper extremity peripherally inserted central venous catheter tip that projects over the superior vena cava. Stable small left pleural effusion with associated atelectasis. Minimal right basilar atelectasis is unchanged. No pneumothorax. Stable cardiomegaly. Electronically signed by: Emre Carlisle MD, PHD Narrative 03/02/2025 2:29 PM CDT EXAMINATION: XR CHEST 1 VIEW HISTORY: PICC placement COMPARISON: 03/02/2025 Procedure Note Emre Carlisle MD PhD - 03/02/2025 EXAMINATION: XR CHEST 1 VIEW HISTORY: PICC placement COMPARISON: 03/02/2025 IMPRESSION: Median sternotomy wires are unchanged. There is a right upper extremity peripherally inserted central venous catheter tip that projects over the superior vena cava. Stable small left pleural effusion with associated atelectasis. Minimal right basilar atelectasis is unchanged. No pneumothorax. Stable cardiomegaly. 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 Patient's stated name/ matches armband: Yes and patient unable to verbalize - armband matched to name and within medical record Allergies confirmed: yes Consent form signed, dated, timed; matches correct patient, intended procedure and site: Yes and no consent form due to emergent status Supplies, devices and special equipment are available: yes Site/side marked: yes Immediately prior to the procedure a time out was called: a verbal verification by the procedure participants confirmed correct patient identity, correct site/side marked and visible (if applicable); agreement on procedure to be done; and correct patient positioning Anesthesia (see MAR for exact dosage) Anesthesia method: Local infiltration Local anesthetic: Lidocaine 1% Hand hygiene performed: Yes PPE (including eye protection) in place as appropriate to the procedure: Yes Preparation: Patient was prepped using appropriate disinfectant and draped using sterile technique as needed Procedure details: Triple lumen PICC cut 33cm and placed in the RUE. Some resistance noted upon advancing catheter. Blood aspirated from all lumens and flushed. Time out performed at bedside with Young Mackay, prior to procedure. Patient tolerance: Patient tolerated the procedure well with no immediate complications Post Procedure Debrief: All guidewires, needles, sponges or other items are accounted for: yes Any special post procedure monitoring, testing or other considerations: yes (enter/request order) All specimens identified, labeled and matched to patient identification: n/a Result [facility] Cheng MCGUIRE IN CLINIC/BEDSIDE ORDERABLES F inal Result * POCT glucose (03/02/2025 12:25 PM CDT) Glucose, POC 146 70 - 199 mg/dL Comment: For Glucose values <35 mg/dl when Hematocrit is >60 mg/dl,the test may not accurately detect significant hypoglycemia,and testing in the Laboratory should be considered if clinically indicated. POC Performer [phone] [facility] Blood 03/02/2025 12:2 5 PM CDT 03/02/2025 12:25 PM CDT Maryjo Deshpande MD LAB POCT ORDERABLES - DEVICE Final Result Performing Organization Address [facility] Co de Phone Number [facility] [address] [place] [address] * Lactate (03/02/2025 8:33 AM CDT) Pathologist [facility] Lactate See Comment 0.7 - 2.0 Comment:Test results inaccur ately filed to this patient's record. Test will be credited. Specimen too old to run due to laboratory mechanical error. Recollect requested and RN informed 03/02/2025 09:57:34 CDT [id number] Blood 03/02/2025 8:33 AM CDT 03/02/2025 8:38 AM CDT Rehana Shipley DO LAB BLOOD ORDERABLES F inal Result Performing Organization Address [facility] Co de Phone Number [facility] [address] [place] [address] * (ABNORMAL) Blood smear review (03/02/2025 8:33 AM CDT) RBC morphology Present(A) Hypochromasia 3-7/HPF(A) [facility] Anisocytosis Slight(A) [facility] Elliptocytes 3-7/HPF(A) [facility] Platelet estimate Adequate [facility] Blood 03/02/2025 8:33 AM CDT 03/02/2025 8:38 AM CDT Rehana Shipley DO LAB BLOOD ORDERABLES F inal Result Performing Organization Address [facility] Co de Phone Number [facility] [address] [place] [address] * (ABNORMAL) eGFR (03/02/2025 8:33 AM CDT) Pathologist [facility] eGFR 28(L) >=60 mL/min/1. 73 m2 Comment: Interpretive Data Reference Interval Normal >/= 90 mL/min/1.73m2 Mildly decreased* 60 - 89 mL/min/1.73m2 Mildly to moderately decreased 45 - 59 mL/min/1.73m2 Moderately to severely decreased 30 - 44 mL/min/1.73m2 Severely decreased 15 - 29 mL/min/1.73m2 Kidney Failure < 15 mL/min/1.73m2 *Relative to young adult level Estimated glomerular filtration rate is determined by the 2020 CKD-EPI equation recommended by the National Kidney [employer] (A Unifying Approach to GFR Estimation: Recommendations of the NKF-ASK Task Force on Reassessing the Inclusion of Race in Diagnosing Kidney Disease, JASN 2020). The CKD-EPI equation should not be used for patients with unstable renal function and has not been validated in children and those over 70. Current interpretive data was last reviewed 2021. Blood 03/02/2025 8:33 AM CDT 03/02/2025 8:37 AM CDT Rehana Shipley DO LAB BLOOD ORDERABLES F inal Result Performing Organization Address [facility] Co de Phone Number [facility] [address] [place] [address] * (ABNORMAL) Differential, auto (03/02/2025 8:33 AM CDT) Pathologist [facility] Neutrophil abs 12.41(H) 1.50 - 6.50 K/cumm Imm gran abs 0.18(H) 0.00 - 0.10 K/cumm [facility] Lymphocyte abs 1.79 0.80 - 3.30 K/cumm [facility] Monocyte abs 1.70(H) 0.20 - 0.80 K/cumm [facility] Eosinophil abs 0.03 0.00 - 0.50 K/cumm [facility] Basophil abs 0.04 0.00 - 0.10 K/cumm [facility] Neutrophil pct 76.9 % [facility] Comment: Interpretive Data Percent cell count reference ranges are not reported, since discordance with absolute values may lead to misinterpretation of CBC data. Current Interpretive Data was last revised on 2018. Imm gran pct 1.1 % [facility] Comment: Interpretive Data Percent cell count reference ranges are not reported, since discordance with absolute values may lead to misinterpretation of CBC data. Current Interpretive Data was last revised on 2018. Lymphocyte pct 11.1 % [facility] Comment: Interpretive Data Percent cell count reference ranges are not reported, since discordance with absolute values may lead to misinterpretation of CBC data. Current Interpretive Data was last revised on 2018. Monocyte pct 10.5 % [facility] Comment: Interpretive Data Percent cell count reference ranges are not reported, since discordance with absolute values may lead to misinterpretation of CBC data. Current Interpretive Data was last revised on 2018. Eosinophil pct 0.2 % [facility] Comment: Interpretive Data Percent cell count reference ranges are not reported, since discordance with absolute values may lead to misinterpretation of CBC data. Current Interpretive Data was last revised on 2018. Basophil pct 0.2 % [facility] Comment: Interpretive Data Percent cell count reference ranges are not reported, since discordance with absolute values may lead to misinterpretation of CBC data. Current Interpretive Data was last revised on 2018. Blood 03/02/2025 8:33 AM CDT 03/02/2025 8:38 AM CDT us Rehana Shipley DO LAB BLOOD ORDERABLES F inal Result [facility] [address] [place] [address] * (ABNORMAL) CBC with auto differential (03/02/2025 8:33 AM CDT) [facility] WBC 16.15(H) 3.80 - 9.90 K/cumm Hgb 7.7(L) 13.0 - 17.5 g/dL [facility] Hct 25.1(L) 38.9 - 50.3 % [facility] Plt 240 150 - 400 K/cumm [facility] Comment:Clumped platelets. P latelet estimate Adequate. Per Gayatri Arshad RN, Platelet confirmation doesn't need to be ordered. MPV 12.9(H) 9.1 - 12.3 fL [facility] RBC 2.72(L) 4.30 - 5.80 M/cumm [facility] MCV 92.3 81.3 - 96.4 fL [facility] MCH 28.3 27.1 - 33.3 pg [facility] MCHC 30.7(L) 32.3 - 35.7 g/dL [facility] RDW CV 15.0(H) 11.1 - 14.9 % [facility] RDW SD 50.1(H) 35.7 - 48.1 fL [facility] NRBC abs 0.00 0.00 - 0.01 K/cumm [facility] Blood 03/02/2025 8:33 AM CDT 03/02/2025 8:38 AM CDT us Rehana Shipley DO LAB BLOOD ORDERABLES F inal Result [facility] [address] [place] [address] * (ABNORMAL) Protime-INR (03/02/2025 8:33 AM CDT) [facility] PT 17.8(H) 9.7 - 13.0 sec INR 1.63(H) 0.90 - 1.20 [facility] Comment: Interpretive data Oral anticoagulant therapeutic ranges: Venous thromboembolism prophylaxis or treatment: 2.0-3.0 CARDIOLOGY Standard range: 2.0-3.0 High-intensity range: 2.5-3.5 Refer to indication-specific guidelines for appropriate target ranges for prosthetic heart valve replacement. Current interpretive data was last revised on 2019. Blood 03/02/2025 8:33 AM CDT 03/02/2025 8:37 AM CDT Rehana [employer] LAB BLOOD ORDERABLES F inal Result Performing Organization Address [facility]/ZIP Co de Phone Number [facility] [address] [facility] [place] [address] * (ABNORMAL) Magnesium (03/02/2025 8:33 AM CDT) Magnesium 2.6(H) 1.4 - 2.5 mg/dL Blood 03/02/2025 8:33 AM CDT 03/02/2025 8:37 AM CDT [employer] LAB BLOOD ORDERABLES F inal Result Performing Organization Address [facility] Co de Phone Number [facility] [address] [facility] [place] [address] * (ABNORMAL) Blood gas, venous (03/02/2025 8:33 AM CDT) pH, Venous 7.40 7.32 - 7.43 PCO2, Venous 33(L) 40 - 50 mmHg [facility] PO2, Venous 163 mmHg [facility] Comment: Interpretive Data No Reference Range Established Current Interpretive Data was last revised on 2018. HCO3 Venous, Calculated 20 20 - 30 mmol/L [facility] BE, venous -4 mmol/L [facility] Comment: nterpretive Data No Reference Range Established Current Interpretive Data was last revised on 2018. Blood 03/02/2025 8:33 AM CDT 03/02/2025 8:38 AM CDT Rehana Kaylan Barks DO LAB BLOOD ORDERABLES F inal Result [facility] [address] [place] [address] * (ABNORMAL) Comprehensive metabolic panel (03/02/2025 8:33 AM CDT) Sodium 140 135 - 145 mmol/L Potassium, pl 3.9 3.3 - 4.9 mmol/L [facility] Chloride 104 97 - 110 mmol/L [facility] CO2 17(L) 22 - 32 mmol/L [facility] Anion gap 19(H) 2 - 15 mmol/L [facility] BUN 106(H) 6 - 25 mg/dL [facility] Creatinine 2.38(H) 0.80 - 1.30 mg/dL [facility] Glucose 98 70 - 199 mg/dL [facility] Comment: Interpretive Data Fasting glucose >/= 126 mg/dl is diagnostic for diabetes. Fasting is defined as no caloric intake for at least 8 hours. Fasting glucose between 100 mg/dl to 125 mg/dl is diagnostic of prediabetes. In a patient with classic symptoms of hyperglycemia or hyperglycemic crisis, a random glucose >/= 200 mg/dl is diagnostic for diabetes. In the absence of unequivocal hyperglycemia, results should be confirmed by repeat testing. The classification and Diagnosis of Diabetes Diabetes Care 2021; 46: S19-S40. Current interpretive data was last revised 2022. Calcium 7.8(L) 8.5 - 10.3 mg/dL [facility] Bilirubin, total 0.4 0.1 - 1.2 mg/dL [facility] Protein, pl 5.8(L) 6.5 - 8.5 g/dL [facility] Albumin 2.6(L) 3.5 - 5.0 g/dL [facility] Alk phos 62 40 - 130 Units/L [facility] ALT 13 7 - 55 Units/L [facility] AST 37 10 - 50 Units/L [facility] Comment:Slightly Hemolyzed S pecimen Blood 03/02/2025 8:33 AM CDT 03/02/2025 8:37 AM CDT Rehana Shipley DO LAB BLOOD ORDERABLES F inal Result Performing Organization Address [facility] Co de Phone Number [facility] [address] [facility] [place], [place] [id number] * POCT glucose (03/02/2025 8:19 AM CDT) Glucose, POC 117 70 - 199 mg/dL Comment: For Glucose values <35 mg/dl when Hematocrit is >60 mg/dl,the test may not accurately detect significant hypoglycemia,and testing in the Laboratory should be considered if clinically indicated. POC Performer [id number] [facility] Blood 03/02/2025 8:19 AM CDT 03/02/2025 8:19 AM CDT Maryjo Deshpande MD LAB POCT ORDERABLES - DEVICE Final Result Performing Organization Address [facility] Co de Phone Number [facility] [address] [place] [address] * POCT glucose (03/02/2025 4:09 AM CDT) Glucose, POC 125 70 - 199 mg/dL Comment: For Glucose values <35 mg/dl when Hematocrit is >60 mg/dl,the test may not accurately detect significant hypoglycemia,and testing in the Laboratory should be considered if clinically indicated. POC Performer [phone] [facility] Blood 03/02/2025 4:09 AM CDT 03/02/2025 4:09 AM CDT Rehana Shipley DO LAB POCT ORDERABLES - DEVICE Final Result Performing Organization Address [facility] Co de Phone Number [facility] [address] Department [place], [place] [id number] * XR Chest 1 View (03/02/2025 3:53 AM CDT) Anatomical Region Laterality Modality Body, Chest N/A Computed Radiogr aphy 03/02/2025 4:16 AM CDT Impressions 03/02/2025 4:16 AM CDT Median sternotomy wires are unchanged. Stable small left pleural effusion with moderate left basilar atelectasis. Mild opacities in the right lung base likely represent additional mild atelectasis. There is no pneumothorax. The heart size is stable. Electronically signed by: Emre Carlisle MD, PHD Narrative 03/02/2025 4:16 AM CDT EXAMINATION: XR CHEST 1 VIEW HISTORY: sob COMPARISON: 03/01/2025 Procedure Note Emre Carlisle MD PhD - 03/02/2025 EXAMINATION: XR CHEST 1 VIEW HISTORY: sob COMPARISON: 03/01/2025 IMPRESSION: Median sternotomy wires are unchanged. Stable small left pleural effusion with moderate left basilar atelectasis. Mild opacities in the right lung base likely represent additional mild atelectasis. There is no pneumothorax. The heart size is stable. Electronically signed by: Emre Carlisle MD, PHD Rehana Kimbrough Keyjerzy DO IMG XR PROCEDURES Madhavi l Result * (ABNORMAL) CBC without differential (03/02/2025 12:08 AM CDT) WBC 17.38(H) 3.80 - 9.90 K/cumm Hgb 7.9(L) 13.0 - 17.5 g/dL [facility] Hct 24.6(L) 38.9 - 50.3 % [facility] Plt 274 150 - 400 K/cumm [facility] MPV 12.7(H) 9.1 - 12.3 fL [facility] RBC 2.73(L) 4.30 - 5.80 M/cumm [facility] MCV 90.1 81.3 - 96.4 fL [facility] MCH 28.9 27.1 - 33.3 pg [facility] MCHC 32.1(L) 32.3 - 35.7 g/dL [facility] RDW CV 14.8 11.1 - 14.9 % [facility] RDW SD 48.9(H) 35.7 - 48.1 fL [facility] NRBC abs 0.00 0.00 - 0.01 K/cumm [facility] Blood 03/02/2025 12:0 8 AM CDT 03/02/2025 12:11 AM CDT Narrative [facility] - 03/02/2025 12:18 AM CDT While on heparin infusion us Rehana Kaylan Mackeys DO LAB BLOOD ORDERABLES F inal Result Performing Organization Address [facility]/ZIP Co de Phone Number [facility] [address] [place] [address] * POCT glucose (03/02/2025 12:03 AM CDT) Glucose, POC 125 70 - 199 mg/dL Comment: For Glucose values <35 mg/dl when Hematocrit is >60 mg/dl,the test may not accurately detect significant hypoglycemia,and testing in the Laboratory should be considered if clinically indicated. POC Performer [phone] [facility] [facility] Blood 03/02/2025 12:0 3 AM CDT 03/02/2025 12:03 AM CDT us Rehana Shipley DO LAB POCT ORDERABLES - DEVICE Final Result Performing Organization Address [facility] Co de Phone Number [facility] [address] [place] [address] * Lactate (03/01/2025 8:07 PM CDT) Lactate 0.9 0.7 - 2.0 mmol/L Blood 03/01/2025 8:07 PM CDT 03/01/2025 8:11 PM CDT Rehanababak Shipley DO LAB BLOOD ORDERABLES F inal Result Performing Organization Address City/[facility]/ZIP Co de Phone Number [facility] [address] [place] [address] * (ABNORMAL) Hemoglobin and hematocrit (03/01/2025 8:07 PM CDT) [facility] Hgb 7.8(L) 13.0 - 17.5 g/dL Hct 24.6(L) 38.9 - 50.3 % [facility] Blood 03/01/2025 8:07 PM CDT 03/01/2025 8:13 PM CDT Rehanababak Shipley DO LAB BLOOD ORDERABLES F inal Result Performing Organization Address [facility]/ZIP Co de Phone Number [facility] [address] [facility] [place] [address] * POCT glucose (03/01/2025 8:05 PM CDT) [facility] Glucose, POC 112 70 - 199 mg/dL Comment: For Glucose values <35 mg/dl when Hematocrit is >60 mg/dl,the test may not accurately detect significant hypoglycemia,and testing in the Laboratory should be considered if clinically indicated. POC Performer [phone] [facility] Blood 03/01/2025 8:05 PM CDT 03/01/2025 8:05 PM CDT Rehana Shipley [facility] POCT ORDERABLES - DEVICE Final Result Performing Organization Address City/[facility]/ZIP Co de Phone Number [facility] [address] [facility] [place] [address] * (ABNORMAL) Hemoglobin and hematocrit (03/01/2025 4:26 PM CDT) [facility] Hgb 8.8(L) 13.0 - 17.5 g/dL Hct 28.2(L) 38.9 - 50.3 % [facility] Blood 03/01/2025 4:26 PM CDT 03/01/2025 4:26 PM CDT Rehana Shipley DO LAB BLOOD ORDERABLES F inal Result Performing Organization Address [facility] de Phone Number [facility] [address] [facility] [place] [address] * aPTT (03/01/2025 4:26 PM CDT) aPTT 30 28 - 38 sec Comment: Interpretive Data Heparin therapeutic range: 66.0 - 100.0 seconds. Range based on correlation with therapeutic heparin activity range of 0.3 - 0.7 Units/mL. Current interpretive data was last revised on 2023. Blood 03/01/2025 4:26 PM CDT 03/01/2025 4:26 PM CDT Rehana Shipley D[facility] LAB BLOOD ORDERABLES F inal Result Performing Organization Address [facility] de Phone Number [facility] [address] [facility] [place] [address] * (ABNORMAL) Protime-INR (03/01/2025 4:26 PM CDT) PT 16.4(H) 9.7 - 13.0 sec INR 1.51(H) 0.90 - 1.20 [facility] Comment: Interpretive data Oral anticoagulant therapeutic ranges: Venous thromboembolism prophylaxis or treatment: 2.0-3.0 CARDIOLOGY Standard range: 2.0-3.0 High-intensity range: 2.5-3.5 Refer to indication-specific guidelines for appropriate target ranges for prosthetic heart valve replacement. Current interpretive data was last revised on 2019. Blood 03/01/2025 4:26 PM CDT 03/01/2025 4:26 PM CDT Rehana Shipley DO LAB BLOOD ORDERABLES F inal Result Performing Organization Address [facility] de Phone Number [facility] [address] [place] [address] * POCT glucose (03/01/2025 4:17 PM CDT) Glucose, POC 120 70 - 199 mg/dL Comment: For Glucose values <35 mg/dl when Hematocrit is >60 mg/dl,the test may not accurately detect significant hypoglycemia,and testing in the Laboratory should be considered if clinically indicated. POC Performer [phone] [facility] Blood 03/01/2025 4:17 PM CDT 03/01/2025 4:17 PM CDT Rehana Shipley DO LAB POCT ORDERABLES - DEVICE Final Result Performing Organization Address [facility]/ZIP Co de Phone Number [facility] [address] [place] [address] * (ABNORMAL) aPTT (03/01/2025 1:45 PM CDT) Pathologist [facility] aPTT 77(H) 28 - 38 sec Comment: Interpretive Data Heparin therapeutic range: 66.0 - 100.0 seconds. Range based on correlation with therapeutic heparin activity range of 0.3 - 0.7 Units/mL. Current interpretive data was last revised on 2023. Blood 03/01/2025 1:45 PM CDT 03/01/2025 2:13 PM CDT Rehana Shipley DO LAB BLOOD ORDERABLES F inal Result [facility] [address] [facility] [place] [address] * (ABNORMAL) Protime-INR (03/01/2025 1:45 PM CDT) PT 16.7(H) 9.7 - 13.0 sec INR 1.53(H) 0.90 - 1.20 [facility] Comment: Interpretive data Oral anticoagulant therapeutic ranges: Venous thromboembolism prophylaxis or treatment: 2.0-3.0 CARDIOLOGY Standard range: 2.0-3.0 High-intensity range: 2.5-3.5 Refer to indication-specific guidelines for appropriate target ranges for prosthetic heart valve replacement. Current interpretive data was last revised on 2019. Blood 03/01/2025 1:45 PM CDT 03/01/2025 2:13 PM CDT Rehana Kaylan Shipley LAB BLOOD ORDERABLES F inal Result Performing Organization Address [facility] Co de Phone Number [facility] [address] [place] [address] * Type and screen (03/01/2025 1:45 PM CDT) Pathologist [facility] ABO Rh B Positive Esme, indirect Negative [facility] Blood 03/01/2025 1:45 PM CDT 03/01/2025 2:11 PM CDT Narrative [facility] - 03/01/2025 2:52 PM CDT Has the patient had Daratumumab or Isatuximab in the past 6 months?->Unknown Rehana Shipley [facility] BLOOD BANK TEST OR DERABLES Final Result Performing Organization Address [facility] Co de Phone Number [facility] [address] [place], [place] [id number] * Prepare RBC: 1 Units (03/01/2025 1:37 PM CDT) Product code [id number] Unit Number [id number] 4-U [facility] Product Blood Type BPOS [facility] Dispense Status RETURNED [facility] Blood 03/01/2025 1:37 PM CDT Narrative [facility] - 03/05/2025 7:20 AM CDT Are special requirements needed? (All products are leukoreduced and CMV- safe)- >No Date required:-[id number] [facility] # of Aqgor-1-Evobf Reasons:-Hemorrhagic shock/Life-threatening bleeding} us Rehana Shipley DO BLOOD BANK PRODUCT ORD ERABLES Final Result [facility] [address] [place] [address] * CT Abdomen Pelvis WO Contrast (03/01/2025 1:23 PM CDT) Anatomical Region Laterality Modality Body N/A Computed Tomogra phy 03/01/2025 1:32 PM CDT Impressions 03/01/2025 1:32 PM CDT Within the constraints of a noncontrast examination: 1. Moderate volume hemoperitoneum. 2. Multilobulated mass/fluid collection within the left upper quadrant indiscernible from the spleen, pancreas, and descending colon. This may represent a hematoma with variable density blood products. An underlying neoplasm difficult to exclude. 3. Ill-defined contours of the spleen, suboptimally evaluated without IV contrast. Findings may represent a splenic hemorrhage/subcapsular hematoma. 4. Moderate left and trace right pleural effusions associated atelectasis. 5. Other incidental findings as above. The Critical results were discussed with Dr. Shipley by Dr. Cadet on 03/01/2025 at 132pm. Electronically signed by: Ananda Cadet M.D. Narrative 03/01/2025 1:32 PM CDT EXAMINATION: Computed tomography of the abdomen and pelvis without intravenous contrast HISTORY: Left lower quadrant abdominal pain TECHNIQUE: Transaxial computed tomographic images of the abdomen and pelvis were obtained without intravenous contrast according to the standard protocol. COMPARISON: None FINDINGS: There is left and right bibasilar atelectasis. There is a small to moderate left-sided pleural effusion and a trace right-sided pleural effusion. Surgical changes of median sternotomy with fat stranding noted within the anterior mediastinum, likely postoperative in nature. Normal-sized configuration of the liver. There are no discrete hepatic lesions.. There is cholelithiasis without findings suggestive of acute cholecystitis. Adrenal glands are unremarkable. The spleen is present. The contours of the spleen are not definitively delineated and difficult to assess without IV contrast. There is a heterogeneous multilobulated mass versus collection noted within the left upper quadrant which measures 7.3 x 7.1 x 5.2 cm this mass is not discernible from the inferior pole the spleen, descending colon, the pancreatic tail. Additionally there is high density fluid noted throughout the left upper quadrant, left colic gutter, and within the pelvis. There is no evidence of bowel obstruction. Moderate colorectal stool volume. Descending colon is decompressed and displaced as described. No focal bladder wall thickening. Prostate is unremarkable. No free air. Aortobiiliac system is normal in course and caliber. Degenerative changes of the spine. No acute or aggressive osseous abnormalities. Procedure Note Ananda Cadet MD - 03/01/2025 EXAMINATION: Computed tomography of the abdomen and pelvis without intravenous contrast HISTORY: Left lower quadrant abdominal pain TECHNIQUE: Transaxial computed tomographic images of the abdomen and pelvis were obtained without intravenous contrast according to the standard protocol. COMPARISON: None FINDINGS: There is left and right bibasilar atelectasis. There is a small to moderate left-sided pleural effusion and a trace right-sided pleural effusion. Surgical changes of median sternotomy with fat stranding noted within the anterior mediastinum, likely postoperative in nature. Normal-sized configuration of the liver. There are no discrete hepatic lesions.. There is cholelithiasis without findings suggestive of acute cholecystitis. Adrenal glands are unremarkable. The spleen is present. The contours of the spleen are not definitively delineated and difficult to assess without IV contrast. There is a heterogeneous multilobulated mass versus collection noted within the left upper quadrant which measures 7.3 x 7.1 x 5.2 cm this mass is not discernible from the inferior pole the spleen, descending colon, the pancreatic tail. Additionally there is high density fluid noted throughout the left upper quadrant, left colic gutter, and within the pelvis. There is no evidence of bowel obstruction. Moderate colorectal stool volume. Descending colon is decompressed and displaced as described. No focal bladder wall thickening. Prostate is unremarkable. No free air. Aortobiiliac system is normal in course and caliber. Degenerative changes of the spine. No acute or aggressive osseous abnormalities. IMPRESSION: Within the constraints of a noncontrast examination: 1. Moderate volume hemoperitoneum. 2. Multilobulated mass/fluid collection within the left upper quadrant indiscernible from the spleen, pancreas, and descending colon. This may represent a hematoma with variable density blood products. An underlying neoplasm difficult to exclude. 3. Ill-defined contours of the spleen, suboptimally evaluated without IV contrast. Findings may represent a splenic hemorrhage/subcapsular hematoma. 4. Moderate left and trace right pleural effusions associated atelectasis. 5. Other incidental findings as above. The Critical results were discussed with Dr. Shipley by Dr. Cadet on 03/01/2025 at 132pm. Electronically signed by: Ananda Cadet M.D. us Rehana Kaylan Shipley DO IMG CT PROCEDURES Madhavi l Result * CT Head WO Contrast (03/01/2025 1:22 PM CDT) Anatomical Region Laterality Modality Head and Neck N/A Computed Tomogra phy 03/01/2025 1:31 PM CDT Impressions 03/01/2025 1:38 PM CDT Age-indeterminate hypodensities of the left insula and left temporal lobe without volume loss. Consider MRI brain with contrast if viral encephalitis or infarct is suspected clinically. Dictated by: Aditya Gonzalez M.D. The radiology attending physician has personally reviewed this study, and had reviewed and/or edited this written report and agrees with it. Electronically signed by: MD Isreal Shah 03/01/2025 1:38 PM CDT EXAMINATION: CT head without contrast HISTORY: 70 years-old Male with Mental status change, unknown cause. TECHNIQUE: CT of the head was performed with images acquired from skull base to vertex without intravenous contrast. COMPARISON: None Available. FINDINGS: There is no acute intracranial hemorrhage. . Age-indeterminate hypodensity of the left insula and left temporal lobe without volume loss. There are scattered subcortical and periventricular white matter hypodensities, nonspecific, likely from chronic microvascular ischemic disease. Mild generalized cerebral volume loss with ex vacuo dilatation of ventricles. No mass effect or midline shift is present. The visualized portions of the orbits are normal. The visualized portions of the mastoids are normal. Right maxillary sinus mucus retention cyst. No fractures are identified. Scattered atherosclerotic intracranial calcifications. Procedure Note Maryjo Liu MD PhD - 03/01/2025 EXAMINATION: CT head without contrast HISTORY: 70 years-old Male with Mental status change, unknown cause. TECHNIQUE: CT of the head was performed with images acquired from skull base to vertex without intravenous contrast. COMPARISON: None Available. FINDINGS: There is no acute intracranial hemorrhage. . Age-indeterminate hypodensity of the left insula and left temporal lobe without volume loss. There are scattered subcortical and periventricular white matter hypodensities, nonspecific, likely from chronic microvascular ischemic disease. Mild generalized cerebral volume loss with ex vacuo dilatation of ventricles. No mass effect or midline shift is present. The visualized portions of the orbits are normal. The visualized portions of the mastoids are normal. Right maxillary sinus mucus retention cyst. No fractures are identified. Scattered atherosclerotic intracranial calcifications. IMPRESSION: Age-indeterminate hypodensities of the left insula and left temporal lobe without volume loss. Consider MRI brain with contrast if viral encephalitis or infarct is suspected clinically. Dictated by: Aditya Gonzalez M.D. The radiology attending physician has personally reviewed this study, and had reviewed and/or edited this written report and agrees with it. Electronically signed by: Maryjo Liu MD Rehana Shipley DO IMG CT PROCEDURES Madhavi l Result * Lactate (03/01/2025 12:51 PM CDT) Pathologist [facility] Lactate 1.1 0.7 - 2.0 mmol/L Blood 03/01/2025 12:5 1 PM CDT 03/01/2025 1:00 PM CDT Rehana Shipley DO LAB BLOOD ORDERABLES F inal Result [facility] [address] [place] [address] * (ABNORMAL) eGFR (03/01/2025 12:51 PM CDT) Pathologist [facility] eGFR 24(L) >=60 mL/min/1. 73 m2 Comment: Interpretive Data Reference Interval Normal >/= 90 mL/min/1.73m2 Mildly decreased* 60 - 89 mL/min/1.73m2 Mildly to moderately decreased 45 - 59 mL/min/1.73m2 Moderately to severely decreased 30 - 44 mL/min/1.73m2 Severely decreased 15 - 29 mL/min/1.73m2 Kidney Failure < 15 mL/min/1.73m2 *Relative to young adult level Estimated glomerular filtration rate is determined by the 2020 CKD-EPI equation recommended by the National Kidney Foundation (A Unifying Approach to GFR Estimation: Recommendations of the NKF-ASK Task Force on Reassessing the Inclusion of Race in Diagnosing Kidney Disease, JASN 2020). The CKD-EPI equation should not be used for patients with unstable renal function and has not been validated in children and those over 70. Current interpretive data was last reviewed 2021. Blood 03/01/2025 12:5 1 PM CDT 03/01/2025 1:02 PM CDT Rehana Shipley DO LAB BLOOD ORDERABLES F inal Result [facility] [address] [place] [address] * (ABNORMAL) Hemoglobin and hematocrit (03/01/2025 12:51 PM CDT) [facility] Hgb 8.9(L) 13.0 - 17.5 g/dL Hct 27.6(L) 38.9 - 50.3 % [facility] Blood 03/01/2025 12:5 1 PM CDT 03/01/2025 1:02 PM CDT Rehanababak Shipley [facility] LAB BLOOD ORDERABLES F inal Result [facility] [address] Department [employer] [place], [place] [id number] * (ABNORMAL) Comprehensive metabolic panel (03/01/2025 12:51 PM CDT) Sodium 134(L) 135 - 145 mmol/L Potassium, pl 4.2 3.3 - 4.9 mmol/L [facility] Chloride 96(L) 97 - 110 mmol/L [facility] CO2 20(L) 22 - 32 mmol/L [facility] Anion gap 18(H) 2 - 15 mmol/L [facility] BUN 108(H) 6 - 25 mg/dL [facility] Creatinine 2.74(H) 0.80 - 1.30 mg/dL [facility] Glucose 133 70 - 199 mg/dL [facility] Comment: Interpretive Data Fasting glucose >/= 126 mg/dl is diagnostic for diabetes. Fasting is defined as no caloric intake for at least 8 hours. Fasting glucose between 100 mg/dl to 125 mg/dl is diagnostic of prediabetes. In a patient with classic symptoms of hyperglycemia or hyperglycemic crisis, a random glucose >/= 200 mg/dl is diagnostic for diabetes. In the absence of unequivocal hyperglycemia, results should be confirmed by repeat testing. The classification and Diagnosis of Diabetes Diabetes Care 2021; 46: S19-S40. Current interpretive data was last revised 2022. Calcium 8.4(L) 8.5 - 10.3 mg/dL [facility] Bilirubin, total 0.3 0.1 - 1.2 mg/dL [facility] Protein, pl 5.9(L) 6.5 - 8.5 g/dL [facility] Albumin 2.6(L) 3.5 - 5.0 g/dL [facility] Alk phos 72 40 - 130 Units/L [facility] ALT 11 7 - 55 Units/L [facility] AST 34 10 - 50 Units/L [facility] Blood 03/01/2025 12:5 1 PM CDT 03/01/2025 1:02 PM CDT us Rehana Shipley DO LAB BLOOD ORDERABLES F inal Result [facility] [address] [place] [address] * POCT glucose (03/01/2025 11:25 AM CDT) Glucose, POC 161 70 - 199 mg/dL Comment: For Glucose values <35 mg/dl when Hematocrit is >60 mg/dl,the test may not accurately detect significant hypoglycemia,and testing in the Laboratory should be considered if clinically indicated. POC Performer [phone] [facility] Blood 03/01/2025 11:2 5 AM CDT 03/01/2025 11:25 AM CDT Rehana Kaylan Shipley DO LAB POCT ORDERABLES - DEVICE Final Result Performing Organization Address [facility] Co de Phone Number [facility] [address] [facility] [place] [address] * POCT glucose (03/01/2025 8:33 AM CDT) Glucose, POC 149 70 - 199 mg/dL Comment: For Glucose values <35 mg/dl when Hematocrit is >60 mg/dl,the test may not accurately detect significant hypoglycemia,and testing in the Laboratory should be considered if clinically indicated. POC Performer [phone] [facility] Blood 03/01/2025 8:33 AM CDT 03/01/2025 8:33 AM CDT Rehana Shipley DO LAB POCT ORDERABLES - DEVICE Final Result Performing Organization Address [facility] Co de Phone Number [facility] [address] [facility] [place], [place] [id number] * POCT glucose (03/01/2025 4:39 AM CDT) Glucose, POC 131 70 - 199 mg/dL Comment: For Glucose values <35 mg/dl when Hematocrit is >60 mg/dl,the test may not accurately detect significant hypoglycemia,and testing in the Laboratory should be considered if clinically indicated. POC Performer [id number] [facility] Blood 03/01/2025 4:39 AM CDT 03/01/2025 4:39 AM CDT Rehana Shipley DO LAB POCT ORDERABLES - DEVICE Final Result [facility] [address] Department [place] [address] * XR Chest 1 View (03/01/2025 4:14 AM CDT) Anatomical Region Laterality Modality Body, Chest N/A Computed Radiogr aphy 03/01/2025 7:25 AM CDT Impressions 03/01/2025 7:25 AM CDT Median sternotomy. Stable heart size. Small left pleural effusion associated atelectasis. No right-sided pleural effusion. Minimal right basilar subsegmental atelectasis. No pneumothorax. No consolidation. Electronically signed by: Ananda Cadet M.D. Narrative 03/01/2025 7:25 AM CDT PORTABLE CHEST RADIOGRAPH INDICATION: sob COMPARISON: 02/28/2025 VIEWS: 1 Procedure Note Ananda Cadet MD - 03/01/2025 PORTABLE CHEST RADIOGRAPH INDICATION: sob COMPARISON: 02/28/2025 VIEWS: 1 IMPRESSION: Median sternotomy. Stable heart size. Small left pleural effusion associated atelectasis. No right-sided pleural effusion. Minimal right basilar subsegmental atelectasis. No pneumothorax. No consolidation. Electronically signed by: Ananda Cadet M.D. Rehana Shipley DO IMG XR PROCEDURES Madhavi l Result * (ABNORMAL) eGFR (03/01/2025 2:45 AM CDT) eGFR 24(L) >=60 mL/min/1. 73 m2 Comment: Interpretive Data Reference Interval Normal >/= 90 mL/min/1.73m2 Mildly decreased* 60 - 89 mL/min/1.73m2 Mildly to moderately decreased 45 - 59 mL/min/1.73m2 Moderately to severely decreased 30 - 44 mL/min/1.73m2 Severely decreased 15 - 29 mL/min/1.73m2 Kidney Failure < 15 mL/min/1.73m2 *Relative to young adult level Estimated glomerular filtration rate is determined by the 2020 CKD-EPI equation recommended by the National Kidney Foundation (A Unifying Approach to GFR Estimation: Recommendations of the NKF-ASK Task Force on Reassessing the Inclusion of Race in Diagnosing Kidney Disease, JASN 2020). The CKD-EPI equation should not be used for patients with unstable renal function and has not been validated in children and those over 70. Current interpretive data was last reviewed 2021. Blood 03/01/2025 2:45 AM CDT 03/01/2025 2:58 AM CDT us Rehana Shipley DO LAB BLOOD ORDERABLES F inal Result [facility] [address] [place] [address] * (ABNORMAL) Differential, auto (03/01/2025 2:45 AM CDT) Neutrophil abs 15.68(H) 1.50 - 6.50 K/cumm Imm gran abs 0.19(H) 0.00 - 0.10 K/cumm [facility] Lymphocyte abs 2.32 0.80 - 3.30 K/cumm [facility] Monocyte abs 1.64(H) 0.20 - 0.80 K/cumm [facility] Eosinophil abs 0.02 0.00 - 0.50 K/cumm [facility] Basophil abs 0.07 0.00 - 0.10 K/cumm [facility] Neutrophil pct 78.7 % [facility] Comment: Interpretive Data Percent cell count reference ranges are not reported, since discordance with absolute values may lead to misinterpretation of CBC data. Current Interpretive Data was last revised on 2018. Imm gran pct 1.0 % [facility] Comment: Interpretive Data Percent cell count reference ranges are not reported, since discordance with absolute values may lead to misinterpretation of CBC data. Current Interpretive Data was last revised on 2018. Lymphocyte pct 11.6 % [facility] Comment: Interpretive Data Percent cell count reference ranges are not reported, since discordance with absolute values may lead to misinterpretation of CBC data. Current Interpretive Data was last revised on 2018. Monocyte pct 8.2 % [facility] Comment: Interpretive Data Percent cell count reference ranges are not reported, since discordance with absolute values may lead to misinterpretation of CBC data. Current Interpretive Data was last revised on 2018. Eosinophil pct 0.1 % [facility] Comment: Interpretive Data Percent cell count reference ranges are not reported, since discordance with absolute values may lead to misinterpretation of CBC data. Current Interpretive Data was last revised on 2018. Basophil pct 0.4 % [facility] Comment: Interpretive Data Percent cell count reference ranges are not reported, since discordance with absolute values may lead to misinterpretation of CBC data. Current Interpretive Data was last revised on 2018. Blood 03/01/2025 2:45 AM CDT 03/01/2025 2:56 AM CDT us Rehana Shipley DO LAB BLOOD ORDERABLES F inal Result [facility] [address] [place] [address] * (ABNORMAL) CBC with auto differential (03/01/2025 2:45 AM CDT) WBC 19.92(H) 3.80 - 9.90 K/cumm Hgb 10.7(L) 13.0 - 17.5 g/dL [facility] Hct 34.5(L) 38.9 - 50.3 % [facility] Plt 291 150 - 400 K/cumm [facility] MPV 12.8(H) 9.1 - 12.3 fL [facility] RBC 3.75(L) 4.30 - 5.80 M/cumm [facility] MCV 92.0 81.3 - 96.4 fL [facility] MCH 28.5 27.1 - 33.3 pg [facility] MCHC 31.0(L) 32.3 - 35.7 g/dL [facility] RDW CV 14.9 11.1 - 14.9 % [facility] RDW SD 49.9(H) 35.7 - 48.1 fL [facility] NRBC abs 0.00 0.00 - 0.01 K/cumm [facility] Blood 03/01/2025 2:45 AM CDT 03/01/2025 2:56 AM CDT Rehana Kaylan Shipley DO LAB BLOOD ORDERABLES F inal Result Performing Organization Address [facility]/ZIP Co de Phone Number [facility] [address] [place] [place] [address] * Blood culture Blood (03/01/2025 2:45 AM CDT) Report Final Report: No growth Blood 03/01/2025 2:45 AM CDT 03/01/2025 2:58 AM CDT Narrative [facility] - 03/06/2025 7:01 AM CDT From a different site than #1. Interpretive Data 1. Blood cultures are incubated and monitored continuously for 5 days (120 hours). The first negative report is issued within 24 hours of receipt in the laboratory. 2. All positive cultures are resulted and called to physicians/care providers as soon as they are detected. 3. A rapid molecular test for organism identification may be performed using the [employer] Blood Culture Identification panel. This assay detects microbial DNA in a blood culture broth. This assay has been cleared by the [place] Food and Drug Administration and its performance characteristics have been verified by the [facility] Microbiology Laboratory. Interpretive data was last revised on November 09, 2022. Rehana Shipley DO LAB MICROBIOLOGY - GEN ERAL ORDERABLES Final Result Performing Organization Address City/[facility]/ZIP Co de Phone Number [facility] [address] [place] [address] * Blood culture Blood (03/01/2025 2:45 AM CDT) Report Final Report: No growth Blood 03/01/2025 2:45 AM CDT 03/01/2025 2:58 AM CDT Narrative [facility] - 03/06/2025 7:01 AM CDT Interpretive Data 1. Blood cultures are incubated and monitored continuously for 5 days (120 hours). The first negative report is issued within 24 hours of receipt in the laboratory. 2. All positive cultures are resulted and called to physicians/care providers as soon as they are detected. 3. A rapid molecular test for organism identification may be performed using the [employer] Blood Culture Identification panel. This assay detects microbial DNA in a blood culture broth. This assay has been cleared by the [place] Food and Drug Administration and its performance characteristics have been verified by the [facility] Microbiology Laboratory. Interpretive data was last revised on November 09, 2022. [employer] LAB MICROBIOLOGY - GEN ERAL ORDERABLES Final Result Performing Organization Address City/[facility] Co de Phone Number [facility] [address] [place] [address] * (ABNORMAL) aPTT (03/01/2025 2:45 AM CDT) aPTT 80(H) 28 - 38 sec Comment: Interpretive Data Heparin therapeutic range: 66.0 - 100.0 seconds. Range based on correlation with therapeutic heparin activity range of 0.3 - 0.7 Units/mL. Current interpretive data was last revised on 2023. Blood 03/01/2025 2:45 AM CDT 03/01/2025 2:57 AM CDT [employer] LAB BLOOD ORDERABLES F inal Result Performing Organization Address City/[facility]/ZIP Co de Phone Number [facility] [address] [place] [address] * (ABNORMAL) Magnesium (03/01/2025 2:45 AM CDT) Pathologist [facility] Magnesium 2.7(H) 1.4 - 2.5 mg/dL Blood 03/01/2025 2:45 AM CDT 03/01/2025 2:58 AM CDT us Rehana Shipley DO LAB BLOOD ORDERABLES F inal Result [facility] [address] [place] [address] * (ABNORMAL) Renal function panel (03/01/2025 2:45 AM CDT) [facility] Sodium 136 135 - 145 mmol/L Potassium, pl 4.4 3.3 - 4.9 mmol/L [facility] Chloride 96(L) 97 - 110 mmol/L [facility] CO2 21(L) 22 - 32 mmol/L [facility] Anion gap 19(H) 2 - 15 mmol/L [facility] BUN 103(H) 6 - 25 mg/dL [facility] Creatinine 2.77(H) 0.80 - 1.30 mg/dL [facility] Glucose 132 70 - 199 mg/dL [facility] Comment: Interpretive Data Fasting glucose >/= 126 mg/dl is diagnostic for diabetes. Fasting is defined as no caloric intake for at least 8 hours. Fasting glucose between 100 mg/dl to 125 mg/dl is diagnostic of prediabetes. In a patient with classic symptoms of hyperglycemia or hyperglycemic crisis, a random glucose >/= 200 mg/dl is diagnostic for diabetes. In the absence of unequivocal hyperglycemia, results should be confirmed by repeat testing. The classification and Diagnosis of Diabetes Diabetes Care 202; 46: S19-S40. Current interpretive data was last revised 2022. Calcium 8.7 8.5 - 10.3 mg/dL [facility] Phosphorus, pl 6.0(H) 2.3 - 4.5 mg/dL [facility] Albumin 2.9(L) 3.5 - 5.0 g/dL [facility] Blood 03/01/2025 2:45 AM CDT 03/01/2025 2:58 AM CDT Rehana Shipley DO LAB BLOOD ORDERABLES F inal Result Performing Organization Address [facility]/ZIP Co de Phone Number [facility] [address] [facility] [place] [address] * POCT glucose (03/01/2025 12:44 AM CDT) Glucose, POC 152 70 - 199 mg/dL Comment: For Glucose values <35 mg/dl when Hematocrit is >60 mg/dl,the test may not accurately detect significant hypoglycemia,and testing in the Laboratory should be considered if clinically indicated. POC Performer [id number] [facility] Blood 03/01/2025 12:4 4 AM CDT 03/01/2025 12:44 AM CDT Rehana Shipley DO LAB POCT ORDERABLES - DEVICE Final Result Performing Organization Address [facility] Co de Phone Number [facility] [address] [facility] [place] [address] * POCT glucose (02/28/2025 7:57 PM CDT) Glucose, POC 171 70 - 199 mg/dL Comment: For Glucose values <35 mg/dl when Hematocrit is >60 mg/dl,the test may not accurately detect significant hypoglycemia,and testing in the Laboratory should be considered if clinically indicated. POC Performer [phone] [facility] Blood 02/28/2025 7:57 PM CDT 02/28/2025 7:57 PM CDT Rehanababak Shipley DO LAB POCT ORDERABLES - DEVICE Final Result Performing Organization Address City/[facility]/ZIP Co de Phone Number [facility] [address] [place] [address] * POCT glucose (02/28/2025 5:16 PM CDT) Glucose, POC 164 70 - 199 mg/dL Comment: For Glucose values <35 mg/dl when Hematocrit is >60 mg/dl,the test may not accurately detect significant hypoglycemia,and testing in the Laboratory should be considered if clinically indicated. POC Performer [phone] [facility] Blood 02/28/2025 5:16 PM CDT 02/28/2025 5:16 PM CDT Rehana Shipley DO LAB POCT ORDERABLES - DEVICE Final Result Performing Organization Address [facility]/ZIP Co de Phone Number [facility] [address] [place] [address] * (ABNORMAL) aPTT (02/28/2025 2:53 PM CDT) aPTT 70(H) 28 - 38 sec Comment: Interpretive Data Heparin therapeutic range: 66.0 - 100.0 seconds. Range based on correlation with therapeutic heparin activity range of 0.3 - 0.7 Units/mL. Current interpretive data was last revised on 2023. Blood 02/28/2025 2:53 PM CDT 02/28/2025 3:11 PM CDT Rehana Shipley DO LAB BLOOD ORDERABLES F inal Result [facility] [address] [facility] [place] [address] * (ABNORMAL) POCT glucose (02/28/2025 12:49 PM CDT) Glucose, POC 201(H) 70 - 199 mg/dL Comment: For Glucose values <35 mg/dl when Hematocrit is >60 mg/dl,the test may not accurately detect significant hypoglycemia,and testing in the Laboratory should be considered if clinically indicated. POC Performer [phone] [facility] Blood 02/28/2025 12:4 9 PM CDT 02/28/2025 12:49 PM CDT Rehana Shipley DO LAB POCT ORDERABLES - DEVICE Final Result Performing Organization Address [facility] Co de Phone Number [facility] [address] [place] [address] * (ABNORMAL) aPTT (02/28/2025 8:10 AM CDT) aPTT 66(H) 28 - 38 sec Comment: Interpretive Data Heparin therapeutic range: 66.0 - 100.0 seconds. Range based on correlation with therapeutic heparin activity range of 0.3 - 0.7 Units/mL. Current interpretive data was last revised on 2023. Blood 02/28/2025 8:10 AM CDT 02/28/2025 8:54 AM CDT Evgeny Villalba MD LAB BLOOD ORDERABLES Madhavi l Result Performing Organization Address [facility] Co de Phone Number [facility] [address] [place] [address] * POCT glucose (02/28/2025 8:04 AM CDT) Glucose, POC 129 70 - 199 mg/dL Comment: For Glucose values <35 mg/dl when Hematocrit is >60 mg/dl,the test may not accurately detect significant hypoglycemia,and testing in the Laboratory should be considered if clinically indicated. POC Performer [phone] [facility] Blood 02/28/2025 8:04 AM CDT 02/28/2025 8:04 AM CDT Rehana Shipley DO LAB POCT ORDERABLES - DEVICE Final Result Performing Organization Address [facility] Co de Phone Number [facility] [address] [place] [address] * POCT glucose (02/28/2025 4:14 AM CDT) [facility] Signature Glucose, POC 122 70 - 199 mg/dL Comment: For Glucose values <35 mg/dl when Hematocrit is >60 mg/dl,the test may not accurately detect significant hypoglycemia,and testing in the Laboratory should be considered if clinically indicated. POC Performer [phone] [facility] Blood 02/28/2025 4:14 AM CDT 02/28/2025 4:14 AM CDT us Rehana Shipley DO LAB POCT ORDERABLES - DEVICE Final Result Performing Organization Address [facility] de Phone Number [facility] [address] [place] [address] * XR Chest 1 View (02/28/2025 3:49 AM CDT) Anatomical Region Laterality Modality Body, Chest N/A Computed Radiogr aphy 02/28/2025 8:58 AM CDT Impressions 02/28/2025 8:58 AM CDT Since the previous examination, the endotracheal tube and enteric tube have been removed. Mild enlargement of the cardiac silhouette. Median sternotomy wires are aligned. Ill-defined interstitial opacities involving the right lung, similar to the previous examination. Small left and tiny right pleural effusions. Electronically signed by: Syed Ch MD Narrative 02/28/2025 8:58 AM CDT EXAMINATION: XR CHEST 1 VIEW HISTORY: Shortness of breath COMPARISON: 02/27/2025 Procedure Note Syed Ch MD - 02/28/2025 EXAMINATION: XR CHEST 1 VIEW HISTORY: Shortness of breath COMPARISON: 02/27/2025 IMPRESSION: Since the previous examination, the endotracheal tube and enteric tube have been removed. Mild enlargement of the cardiac silhouette. Median sternotomy wires are aligned. Ill-defined interstitial opacities involving the right lung, similar to the previous examination. Small left and tiny right pleural effusions. Electronically signed by: Syed Ch MD Rehana Shipley DO IMG XR PROCEDURES Madhavi l Result * Lactate (02/28/2025 1:21 AM CDT) Lactate 0.7 0.7 - 2.0 mmol/L Blood 02/28/2025 1:21 AM CDT 02/28/2025 1:24 AM CDT Rehana Shipley DO LAB BLOOD ORDERABLES F inal Result [facility] [address] [place] [address] * (ABNORMAL) eGFR (02/28/2025 1:21 AM CDT) eGFR 28(L) >=60 mL/min/1. 73 m2 Comment: Interpretive Data Reference Interval Normal >/= 90 mL/min/1.73m2 Mildly decreased* 60 - 89 mL/min/1.73m2 Mildly to moderately decreased 45 - 59 mL/min/1.73m2 Moderately to severely decreased 30 - 44 mL/min/1.73m2 Severely decreased 15 - 29 mL/min/1.73m2 Kidney Failure < 15 mL/min/1.73m2 *Relative to young adult level Estimated glomerular filtration rate is determined by the 2020 CKD-EPI equation recommended by the National Kidney [employer] (A Unifying Approach to GFR Estimation: Recommendations of the NKF-ASK Task Force on Reassessing the Inclusion of Race in Diagnosing Kidney Disease, JASN 202). The CKD-EPI equation should not be used for patients with unstable renal function and has not been validated in children and those over 70. Current interpretive data was last reviewed 2021. Blood 02/28/2025 1:21 AM CDT 02/28/2025 1:33 AM CDT us Rehana Shipley DO LAB BLOOD ORDERABLES F inal Result [facility] [address] [place] [address] * (ABNORMAL) Differential, auto (02/28/2025 1:21 AM CDT) Neutrophil abs 13.25(H) 1.50 - 6.50 K/cumm Imm gran abs 0.15(H) 0.00 - 0.10 K/cumm [facility] Lymphocyte abs 2.15 0.80 - 3.30 K/cumm [facility] Monocyte abs 1.67(H) 0.20 - 0.80 K/cumm [facility] Eosinophil abs 0.19 0.00 - 0.50 K/cumm [facility] Basophil abs 0.07 0.00 - 0.10 K/cumm [facility] Neutrophil pct 75.7 % [facility] Comment: Interpretive Data Percent cell count reference ranges are not reported, since discordance with absolute values may lead to misinterpretation of CBC data. Current Interpretive Data was last revised on 2018. Imm gran pct 0.9 % [facility] Comment: Interpretive Data Percent cell count reference ranges are not reported, since discordance with absolute values may lead to misinterpretation of CBC data. Current Interpretive Data was last revised on 2018. Lymphocyte pct 12.3 % [facility] Comment: Interpretive Data Percent cell count reference ranges are not reported, since discordance with absolute values may lead to misinterpretation of CBC data. Current Interpretive Data was last revised on 2018. Monocyte pct 9.6 % [facility] Comment: Interpretive Data Percent cell count reference ranges are not reported, since discordance with absolute values may lead to misinterpretation of CBC data. Current Interpretive Data was last revised on 2018. Eosinophil pct 1.1 % [facility] Comment: Interpretive Data Percent cell count reference ranges are not reported, since discordance with absolute values may lead to misinterpretation of CBC data. Current Interpretive Data was last revised on 2018. Basophil pct 0.4 % [facility] Comment: Interpretive Data Percent cell count reference ranges are not reported, since discordance with absolute values may lead to misinterpretation of CBC data. Current Interpretive Data was last revised on 2018. Blood 02/28/2025 1:21 AM CDT 02/28/2025 1:32 AM CDT Rehana Shipley DO LAB BLOOD ORDERABLES F inal Result Performing Organization Address City/[facility] Co de Phone Number [facility] [address] [place] [address] * (ABNORMAL) Procalcitonin (02/28/2025 1:21 AM CDT) Pathologist [facility] Procalcitonin 0.29(H) <=0.25 ng/mL Blood 02/28/2025 1:21 AM CDT 02/28/2025 1:33 AM CDT Rehana Shipley DO LAB BLOOD ORDERABLES F inal Result Performing Organization Address [facility] Co de Phone Number [facility] [address] [place] [address] * Thyroid Function [place] (02/28/2025 1:21 AM CDT) Pathologist [facility] TSH 3.26 0.30 - 4.20 mcIUnit/mL Blood 02/28/2025 1:21 AM CDT 02/28/2025 1:33 AM CDT Rehana Shipley DO LAB BLOOD ORDERABLES F inal Result Performing Organization Address [facility] Co de Phone Number [facility] [address] Department [place], [place] [id number] * (ABNORMAL) CBC with auto differential (02/28/2025 1:21 AM CDT) Pathologist [facility] WBC 17.48(H) 3.80 - 9.90 K/cumm Hgb 12.5(L) 13.0 - 17.5 g/dL [facility] Hct 39.7 38.9 - 50.3 % [facility] Plt 260 150 - 400 K/cumm [facility] MPV 12.7(H) 9.1 - 12.3 fL [facility] RBC 4.35 4.30 - 5.80 M/cumm [facility] MCV 91.3 81.3 - 96.4 fL [facility] MCH 28.7 27.1 - 33.3 pg [facility] MCHC 31.5(L) 32.3 - 35.7 g/dL [facility] RDW CV 15.3(H) 11.1 - 14.9 % [facility] RDW SD 51.0(H) 35.7 - 48.1 fL [facility] NRBC abs 0.00 0.00 - 0.01 K/cumm [facility] Blood 02/28/2025 1:21 AM CDT 02/28/2025 1:32 AM CDT us Rehana Shipley DO LAB BLOOD ORDERABLES F inal Result Performing Organization Address [facility] Co de Phone Number [facility] [address] [place] [address] * (ABNORMAL) aPTT (02/28/2025 1:21 AM CDT) Pathologist [facility] aPTT 60(H) 28 - 38 sec Comment: Interpretive Data Heparin therapeutic range: 66.0 - 100.0 seconds. Range based on correlation with therapeutic heparin activity range of 0.3 - 0.7 Units/mL. Current interpretive data was last revised on 2023. Blood 02/28/2025 1:21 AM CDT 02/28/2025 1:27 AM CDT us Evgeny Villalba MD LAB BLOOD ORDERABLES Madhavi l Result [facility] [address] [facility] [place] [address] * (ABNORMAL) Phosphorus (02/28/2025 1:21 AM CDT) [facility] Phosphorus, pl 4.6(H) 2.3 - 4.5 mg/dL Blood 02/28/2025 1:21 AM CDT 02/28/2025 1:33 AM CDT Rehana Shipley DO LAB BLOOD ORDERABLES F inal Result Performing Organization Address [facility]/ZIP Co de Phone Number [facility] [address] [facility] [place] [address] * (ABNORMAL) Magnesium (02/28/2025 1:21 AM CDT) [facility] Magnesium 2.9(H) 1.4 - 2.5 mg/dL Blood 02/28/2025 1:21 AM CDT 02/28/2025 1:33 AM CDT Rehana Shipley LAB BLOOD ORDERABLES F inal Result Performing Organization Address [facility] Co de Phone Number [facility] [address] [facility] [place] [address] * (ABNORMAL) Comprehensive metabolic panel (02/28/2025 1:21 AM CDT) [facility] Sodium 144 135 - 145 mmol/L Potassium, pl 3.9 3.3 - 4.9 mmol/L [facility] Chloride 104 97 - 110 mmol/L [facility] CO2 22 22 - 32 mmol/L [facility] Anion gap 18(H) 2 - 15 mmol/L [facility] BUN 88(H) 6 - 25 mg/dL [facility] Creatinine 2.41(H) 0.80 - 1.30 mg/dL [facility] Glucose 128 70 - 199 mg/dL [facility] Comment: Interpretive Data Fasting glucose >/= 126 mg/dl is diagnostic for diabetes. Fasting is defined as no caloric intake for at least 8 hours. Fasting glucose between 100 mg/dl to 125 mg/dl is diagnostic of prediabetes. In a patient with classic symptoms of hyperglycemia or hyperglycemic crisis, a random glucose >/= 200 mg/dl is diagnostic for diabetes. In the absence of unequivocal hyperglycemia, results should be confirmed by repeat testing. The classification and Diagnosis of Diabetes Diabetes Care 2021; 46: S19-S40. Current interpretive data was last revised 2022. Calcium 8.6 8.5 - 10.3 mg/dL [facility] Bilirubin, total 0.2 0.1 - 1.2 mg/dL [facility] Protein, pl 6.7 6.5 - 8.5 g/dL [facility] Albumin 2.9(L) 3.5 - 5.0 g/dL [facility] Alk phos 78 40 - 130 Units/L [facility] ALT 9 7 - 55 Units/L [facility] AST 41 10 - 50 Units/L [facility] Blood 02/28/2025 1:21 AM CDT 02/28/2025 1:33 AM CDT Rehana Shipley DO LAB BLOOD ORDERABLES F inal Result [facility] [address] Department of Laboratories [place], [place] [id number] * POCT glucose (02/28/2025 12:21 AM CDT) [facility] Signature Glucose, POC 113 70 - 199 mg/dL Comment: For Glucose values <35 mg/dl when Hematocrit is >60 mg/dl,the test may not accurately detect significant hypoglycemia,and testing in the Laboratory should be considered if clinically indicated. POC Performer [phone] [facility] Blood 02/28/2025 12:2 1 AM CDT 02/28/2025 12:21 AM CDT Rehana Shipley DO LAB POCT ORDERABLES - DEVICE Final Result Performing Organization Address [facility] Co de Phone Number [facility] [address] Department [place], [place] [id number] * POCT glucose (02/27/2025 8:07 PM CDT) Glucose, POC 122 70 - 199 mg/dL Comment: For Glucose values <35 mg/dl when Hematocrit is >60 mg/dl,the test may not accurately detect significant hypoglycemia,and testing in the Laboratory should be considered if clinically indicated. POC Performer [phone] [facility] Blood 02/27/2025 8:07 PM CDT 02/27/2025 8:07 PM CDT Rehana Shipley DO LAB POCT ORDERABLES - DEVICE Final Result Performing Organization Address [facility] de Phone Number [facility] [address] [place] [address] * (ABNORMAL) aPTT (02/27/2025 6:23 PM CDT) aPTT 54(H) 28 - 38 sec Comment: Interpretive Data Heparin therapeutic range: 66.0 - 100.0 seconds. Range based on correlation with therapeutic heparin activity range of 0.3 - 0.7 Units/mL. Current interpretive data was last revised on 2023. Blood 02/27/2025 6:23 PM CDT 02/27/2025 6:32 PM CDT Rehana Shipley DO LAB BLOOD ORDERABLES F inal Result Performing Organization Address [facility] Co de Phone Number [facility] [address] Department [place], [place] [id number] * POCT glucose (02/27/2025 4:09 PM CDT) Glucose, POC 195 70 - 199 mg/dL Comment: For Glucose values <35 mg/dl when Hematocrit is >60 mg/dl,the test may not accurately detect significant hypoglycemia,and testing in the Laboratory should be considered if clinically indicated. POC Performer [phone] [facility] Blood 02/27/2025 4:09 PM CDT 02/27/2025 4:09 PM CDT Rehana Shipley DO LAB POCT ORDERABLES - DEVICE Final Result Performing Organization Address [facility] Co de Phone Number [facility] [address] [place] [address] * NT-Pro BNP - Add on lab test (02/27/2025 2:33 PM CDT) Acceptable Yes Blood 02/27/2025 2:33 PM CDT 02/27/2025 2:33 PM CDT Narrative [facility] - 02/27/2025 2:33 PM CDT Name of Test->NT-Pro BNP Balbina Mac [employer] APPRENTICE LAB BLOOD ORDERABLES Fi nal Result Performing Organization Address [facility] de Phone Number [facility] [address] [place] [address] * (ABNORMAL) POCT glucose (02/27/2025 12:08 PM CDT) Glucose, POC 264(H) 70 - 199 mg/dL Comment: For Glucose values <35 mg/dl when Hematocrit is >60 mg/dl,the test may not accurately detect significant hypoglycemia,and testing in the Laboratory should be considered if clinically indicated. POC Performer [phone] [facility] Blood 02/27/2025 12:0 8 PM CDT 02/27/2025 12:08 PM CDT Rehana Shipley DO LAB POCT ORDERABLES - DEVICE Final Result Performing Organization Address [facility] Co de Phone Number [facility] [address] [place] [address] * ECG 12 lead (02/27/2025 11:45 AM CDT) 02/27/2025 11:4 5 AM CDT Narrative [facility] - 02/27/2025 12:09 PM CDT Vent Rate: 89 bpm RR Interval: 671 msec IN Interval: 173 msec QRS Duration: 158 msec QT Interval: 452 msec QTC Interval: 499 msec P-R-T [place]: 55 - 46 - 253 degrees IMPRESSION: SINUS RHYTHM INTRAVENTRICULAR CONDUCTION DELAY [130+ ms QRS DURATION] ABNORMAL ECG Electronically Signed By: Maryjo Canchola MD, [facility] Rehana Shipley DO ECG ORDERABLES Final Result Performing Organization Address [facility] Co de Phone Number [facility] * aPTT (02/27/2025 9:33 AM CDT) aPTT 32 28 - 38 sec Comment: Interpretive Data Heparin therapeutic range: 66.0 - 100.0 seconds. Range based on correlation with therapeutic heparin activity range of 0.3 - 0.7 Units/mL. Current interpretive data was last revised on 2023. Blood 02/27/2025 9:33 AM CDT 02/27/2025 10:01 AM CDT Narrative [facility] - 02/27/2025 10:16 AM CDT Baseline prior to heparin initiation Rehana Shipley DO LAB BLOOD ORDERABLES F inal Result Performing Organization Address City/[facility]/ZIP Co de Phone Number [facility] [address] [place] [address] * Protime-INR (02/27/2025 9:33 AM CDT) PT 12.2 9.7 - 13.0 sec INR 1.13 0.90 - 1.20 [facility] Comment: Interpretive data Oral anticoagulant therapeutic ranges: Venous thromboembolism prophylaxis or treatment: 2.0-3.0 CARDIOLOGY Standard range: 2.0-3.0 High-intensity range: 2.5-3.5 Refer to indication-specific guidelines for appropriate target ranges for prosthetic heart valve replacement. Current interpretive data was last revised on 2019. Blood 02/27/2025 9:33 AM CDT 02/27/2025 10:01 AM CDT Narrative [facility] - 02/27/2025 10:16 AM CDT Baseline prior to heparin initiation us Rehana Shipley DO LAB BLOOD ORDERABLES F inal Result [facility] [address] [place] [address] * (ABNORMAL) CBC without differential (02/27/2025 9:33 AM CDT) WBC 20.73(H) 3.80 - 9.90 K/cumm Hgb 13.0 13.0 - 17.5 g/dL [facility] Hct 42.4 38.9 - 50.3 % [facility] Plt 269 150 - 400 K/cumm [facility] MPV 13.3(H) 9.1 - 12.3 fL [facility] RBC 4.52 4.30 - 5.80 M/cumm [facility] MCV 93.8 81.3 - 96.4 fL [facility] MCH 28.8 27.1 - 33.3 pg [facility] MCHC 30.7(L) 32.3 - 35.7 g/dL [facility] RDW CV 15.5(H) 11.1 - 14.9 % [facility] RDW SD 54.0(H) 35.7 - 48.1 fL [facility] NRBC abs 0.00 0.00 - 0.01 K/cumm [facility] Blood 02/27/2025 9:33 AM CDT 02/27/2025 10:01 AM CDT Narrative [facility] - 02/27/2025 10:13 AM CDT Baseline prior to heparin initiation Rehana Mackeyjerzy DO LAB BLOOD ORDERABLES F inal Result Performing Organization Address [facility] Co de Phone Number [facility] [address] [place] [address] * POCT glucose (02/27/2025 7:47 AM CDT) [facility] Signature Glucose, POC 190 70 - 199 mg/dL Comment: For Glucose values <35 mg/dl when Hematocrit is >60 mg/dl,the test may not accurately detect significant hypoglycemia,and testing in the Laboratory should be considered if clinically indicated. POC Performer [phone] [facility] Blood 02/27/2025 7:47 AM CDT 02/27/2025 7:47 AM CDT Rehana Shipley DO LAB POCT ORDERABLES - DEVICE Final Result Performing Organization Address [facility] de Phone Number [facility] [address] [place] [address] * XR Chest 1 View (02/27/2025 5:09 AM CDT) Anatomical Region Laterality Modality Body, Chest N/A Computed Radiogr aphy 02/27/2025 7:38 AM CDT Impressions 02/27/2025 7:38 AM CDT Endotracheal tube with tip approximately 5.3 cm superior to the marisela. Side port of the gastric tube projects over the stomach. Patient is rotated. There is partial atelectasis in the left lung base. There may be a small amount of left-sided pleural effusion. The heart and mediastinum are unchanged status post median sternotomy. No pneumothorax. Electronically signed by: Teodoro Rodgers M.D. Narrative 02/27/2025 7:38 AM CDT EXAMINATION: 1 view chest radiograph COMPARISON: 02/26/2025 INDICATION: ET / Vent Procedure Note Teodoro Rodgers MD - 02/27/2025 EXAMINATION: 1 view chest radiograph COMPARISON: 02/26/2025 INDICATION: ET / Vent IMPRESSION: Endotracheal tube with tip approximately 5.3 cm superior to the marisela. Side port of the gastric tube projects over the stomach. Patient is rotated. There is partial atelectasis in the left lung base. There may be a small amount of left-sided pleural effusion. The heart and mediastinum are unchanged status post median sternotomy. No pneumothorax. Electronically signed by: Teodoro Rodgers M.D. Maryjo Deshpande MD IMG XR PROCEDURES Final Resu lt * POCT glucose (02/27/2025 4:20 AM CDT) [facility] Glucose, POC 181 70 - 199 mg/dL Comment: For Glucose values <35 mg/dl when Hematocrit is >60 mg/dl,the test may not accurately detect significant hypoglycemia,and testing in the Laboratory should be considered if clinically indicated. POC Performer [id number] [facility] Blood 02/27/2025 4:20 AM CDT 02/27/2025 4:20 AM CDT Maryjo Deshpande MD LAB POCT ORDERABLES - DEVICE Final Result [facility] [address] [place] [address] * (ABNORMAL) eGFR (02/27/2025 2:48 AM CDT) [facility] eGFR 27(L) >=60 mL/min/1. 73 m2 Comment: Interpretive Data Reference Interval Normal >/= 90 mL/min/1.73m2 Mildly decreased* 60 - 89 mL/min/1.73m2 Mildly to moderately decreased 45 - 59 mL/min/1.73m2 Moderately to severely decreased 30 - 44 mL/min/1.73m2 Severely decreased 15 - 29 mL/min/1.73m2 Kidney Failure < 15 mL/min/1.73m2 *Relative to young adult level Estimated glomerular filtration rate is determined by the 2020 CKD-EPI equation recommended by the National Kidney Foundation (A Unifying Approach to GFR Estimation: Recommendations of the NKF-ASK Task Force on Reassessing the Inclusion of Race in Diagnosing Kidney Disease, JASN 2020). The CKD-EPI equation should not be used for patients with unstable renal function and has not been validated in children and those over 70. Current interpretive data was last reviewed 2021. Blood 02/27/2025 2:48 AM CDT 02/27/2025 3:04 AM CDT us Maryjo Deshpande MD LAB BLOOD ORDERABLES Final R esult [facility] [address] [place] [address] * (ABNORMAL) Pro B-type natriuretic peptide (02/27/2025 2:48 AM CDT) NT-proBNP 2,776(H) <=300 pg/mL Comment: Interpretive Comments: A. Dyspnea in Acute Care Setting All Ages: < 300 pg/ml, acute heart failure unlikely. < 50 yrs: 300 - 450 pg/ml, further investigation warranted. > 450 pg/ml, acute heart failure likely. 50 - 74 yrs: 300 - 900 pg/ml, further investigation warranted. > 900 pg/ml, acute heart failure likely . > or = 75 yrs: 450 - 1800 pg/ml, further investigation warranted. > 1800 pg/ml, acute heart failure likely. B. Non-acute Setting < 75 yrs < 125 pg/ml, rules out heart failure. > or = 125 pg/ml, further investigation warranted. > or = 75 yrs < 450 pg/ml, rules out heart failure. > or = 450 pg/ml, further investigation warranted. - Knowledge of each individual patient's NT-proBNP range may be more useful than using similar cut-points for every patient. Please note that marked elevations in NT-proBNP levels may be observed in state other than Left Ventricular Congestive Failure, including: acute coronary syndromes, right heart strain/failure (including pulmonary embolism and cor pulmonale), critical illness, renal failure, as well as advanced age. - References: 1. Dawson OROURKE et.al. Eur Heart J. 2006:27:330-337. 2. Uche RW, Gabriella LEUNG. J. AM Jacque Cardiol: Cardiovasc Imag. 2009;2: 216- 225. Interpretive Data Last Revised Date: 2018. Blood 02/27/2025 2:48 AM CDT 02/27/2025 3:04 AM CDT Rehana Shipley DO LAB BLOOD ORDERABLES F inal Result Performing Organization Address [facility] Co de Phone Number [facility] [address] [place] [address] * (ABNORMAL) Calcium, ionized (02/27/2025 2:48 AM CDT) Pathologist [facility] Calcium, Ionized 4.32(L) 4.50 - 5.10 mg/dL Blood 02/27/2025 2:48 AM CDT 02/27/2025 3:02 AM CDT Maryjo Deshpande MD LAB BLOOD ORDERABLES Final R esult Performing Organization Address [facility] de Phone Number [facility] [address] [place] [address] * (ABNORMAL) CBC without differential (02/27/2025 2:48 AM CDT) WBC 16.19(H) 3.80 - 9.90 K/cumm Hgb 12.9(L) 13.0 - 17.5 g/dL [facility] Hct 42.0 38.9 - 50.3 % [facility] Plt 226 150 - 400 K/cumm [facility] MPV 13.0(H) 9.1 - 12.3 fL [facility] RBC 4.48 4.30 - 5.80 M/cumm [facility] MCV 93.8 81.3 - 96.4 fL [facility] MCH 28.8 27.1 - 33.3 pg [facility] MCHC 30.7(L) 32.3 - 35.7 g/dL [facility] RDW CV 15.5(H) 11.1 - 14.9 % [facility] RDW SD 53.6(H) 35.7 - 48.1 fL [facility] NRBC abs 0.00 0.00 - 0.01 K/cumm [facility] Blood 02/27/2025 2:48 AM CDT 02/27/2025 3:04 AM CDT Maryjo Deshpande MD LAB BLOOD ORDERABLES Final R esult Performing Organization Address City/[facility]/ZIP Co de Phone Number [facility] [address] [place], [place] [id number] * (ABNORMAL) Magnesium (02/27/2025 2:48 AM CDT) [facility] Magnesium 2.8(H) 1.4 - 2.5 mg/dL Blood 02/27/2025 2:48 AM CDT 02/27/2025 3:04 AM CDT Maryjo Deshpande MD LAB BLOOD ORDERABLES Final R esult Performing Organization Address City/[facility] Co de Phone Number [facility] [address] [place] [address] * (ABNORMAL) Renal function panel (02/27/2025 2:48 AM CDT) [facility] Sodium 142 135 - 145 mmol/L Potassium, pl 3.8 3.3 - 4.9 mmol/L [facility] Chloride 100 97 - 110 mmol/L [facility] CO2 21(L) 22 - 32 mmol/L [facility] Anion gap 21(H) 2 - 15 mmol/L [facility] BUN 77(H) 6 - 25 mg/dL [facility] Creatinine 2.45(H) 0.80 - 1.30 mg/dL [facility] Glucose 210(H) 70 - 199 mg/dL [facility] Comment: Interpretive Data Fasting glucose >/= 126 mg/dl is diagnostic for diabetes. Fasting is defined as no caloric intake for at least 8 hours. Fasting glucose between 100 mg/dl to 125 mg/dl is diagnostic of prediabetes. In a patient with classic symptoms of hyperglycemia or hyperglycemic crisis, a random glucose >/= 200 mg/dl is diagnostic for diabetes. In the absence of unequivocal hyperglycemia, results should be confirmed by repeat testing. The classification and Diagnosis of Diabetes Diabetes Care 2021; 46: S19-S40. Current interpretive data was last revised 2022. Calcium 8.3(L) 8.5 - 10.3 mg/dL [facility] Phosphorus, pl 4.6(H) 2.3 - 4.5 mg/dL [facility] Albumin 2.8(L) 3.5 - 5.0 g/dL [facility] Blood 02/27/2025 2:48 AM CDT 02/27/2025 3:04 AM CDT Maryjo Deshpande MD LAB BLOOD ORDERABLES Final R esult Performing Organization Address [facility] Co de Phone Number [facility] [address] [place] [address] * (ABNORMAL) POCT glucose (02/27/2025 12:46 AM CDT) [facility] Glucose, POC 202(H) 70 - 199 mg/dL Comment: For Glucose values <35 mg/dl when Hematocrit is >60 mg/dl,the test may not accurately detect significant hypoglycemia,and testing in the Laboratory should be considered if clinically indicated. POC Performer [phone] [facility] Blood 02/27/2025 12:4 6 AM CDT 02/27/2025 12:46 AM CDT Maryjo Deshpande MD LAB POCT ORDERABLES - DEVICE Final Result Performing Organization Address [facility]/ZIP Co de Phone Number [facility] [address] [place] [address] * POCT glucose (02/26/2025 8:38 PM CDT) Glucose, POC 192 70 - 199 mg/dL Comment: For Glucose values <35 mg/dl when Hematocrit is >60 mg/dl,the test may not accurately detect significant hypoglycemia,and testing in the Laboratory should be considered if clinically indicated. POC Performer [phone] [facility] Blood 02/26/2025 8:38 PM CDT 02/26/2025 8:38 PM CDT Maryjo Deshpande MD LAB POCT ORDERABLES - DEVICE Final Result Performing Organization Address [facility] Co de Phone Number [facility] [address] [facility] [place], [place] [id number] * POCT glucose (02/26/2025 3:58 PM CDT) Glucose, POC 143 70 - 199 mg/dL Comment: For Glucose values <35 mg/dl when Hematocrit is >60 mg/dl,the test may not accurately detect significant hypoglycemia,and testing in the Laboratory should be considered if clinically indicated. POC Performer [id number] [facility] Blood 02/26/2025 3:58 PM CDT 02/26/2025 3:58 PM CDT Maryjo Deshpande MD LAB POCT ORDERABLES - DEVICE Final Result Performing Organization Address City/[facility] Co de Phone Number [facility] [address] [facility] [place] [address] * (ABNORMAL) POCT glucose (02/26/2025 11:53 AM CDT) Glucose, POC 216(H) 70 - 199 mg/dL Comment: For Glucose values <35 mg/dl when Hematocrit is >60 mg/dl,the test may not accurately detect significant hypoglycemia,and testing in the Laboratory should be considered if clinically indicated. POC Performer [phone] [facility] Blood 02/26/2025 11:5 3 AM CDT 02/26/2025 11:53 AM CDT Maryjo Deshpande MD LAB POCT ORDERABLES - DEVICE Final Result Performing Organization Address City/[facility] Co de Phone Number [facility] [address] [place] [address] * (ABNORMAL) POCT glucose (02/26/2025 9:04 AM CDT) Glucose, POC 214(H) 70 - 199 mg/dL Comment: For Glucose values <35 mg/dl when Hematocrit is >60 mg/dl,the test may not accurately detect significant hypoglycemia,and testing in the Laboratory should be considered if clinically indicated. POC Performer [id number] [facility] Blood 02/26/2025 9:04 AM CDT 02/26/2025 9:04 AM CDT Maryjo Deshpande MD LAB POCT ORDERABLES - DEVICE Final Result Performing Organization Address [facility] de Phone Number [facility] [address] [facility] [place] [address] * (ABNORMAL) POCT glucose (02/26/2025 5:11 AM CDT) Glucose, POC 216(H) 70 - 199 mg/dL Comment: For Glucose values <35 mg/dl when Hematocrit is >60 mg/dl,the test may not accurately detect significant hypoglycemia,and testing in the Laboratory should be considered if clinically indicated. POC Performer [phone] [facility] Blood 02/26/2025 5:11 AM CDT 02/26/2025 5:11 AM CDT Maryjo Deshpande MD LAB POCT ORDERABLES - DEVICE Final Result Performing Organization Address [facility] Co de Phone Number [facility] [address] Department [place], [place] [id number] * XR Chest 1 View (02/26/2025 3:38 AM CDT) Anatomical Region Laterality Modality Body, Chest N/A Computed Radiogr aphy 02/26/2025 8:03 AM CDT Impressions 02/26/2025 8:03 AM CDT Haines and 02/25/2025 3:59 AM. Median sternotomy wires are aligned and intact. Endotracheal tube tip approximately 5 cm above the marisela. Gastric tube courses caudal to the diaphragm. Mild to moderate left lower lobe atelectasis seen, improved. Small left basilar pleural effusion again noted. Lungs otherwise clear. No pneumothorax seen. Cardiomediastinal silhouette stable. Electronically signed by: Siva Taylor M.D. Narrative 02/26/2025 8:03 AM CDT EXAMINATION: Chest 1 view Procedure Note Siva Taylor MD - 02/26/2025 EXAMINATION: Chest 1 view IMPRESSION: Haines and 02/25/2025 3:59 AM. Median sternotomy wires are aligned and intact. Endotracheal tube tip approximately 5 cm above the marisela. Gastric tube courses caudal to the diaphragm. Mild to moderate left lower lobe atelectasis seen, improved. Small left basilar pleural effusion again noted. Lungs otherwise clear. No pneumothorax seen. Cardiomediastinal silhouette stable. Electronically signed by: Siva Taylor M.D. Maryjo Deshpande MD IMG XR PROCEDURES Final Resu lt * (ABNORMAL) eGFR (02/26/2025 3:04 AM CDT) eGFR 34(L) >=60 mL/min/1. 73 m2 Comment: Interpretive Data Reference Interval Normal >/= 90 mL/min/1.73m2 Mildly decreased* 60 - 89 mL/min/1.73m2 Mildly to moderately decreased 45 - 59 mL/min/1.73m2 Moderately to severely decreased 30 - 44 mL/min/1.73m2 Severely decreased 15 - 29 mL/min/1.73m2 Kidney Failure < 15 mL/min/1.73m2 *Relative to young adult level Estimated glomerular filtration rate is determined by the 2020 CKD-EPI equation recommended by the National Kidney Foundation (A Unifying Approach to GFR Estimation: Recommendations of the NKF-ASK Task Force on Reassessing the Inclusion of Race in Diagnosing Kidney Disease, JASN 2020). The CKD-EPI equation should not be used for patients with unstable renal function and has not been validated in children and those over 70. Current interpretive data was last reviewed 2021. Blood 02/26/2025 3:04 AM CDT 02/26/2025 3:24 AM CDT us Maryjo Deshpande MD LAB BLOOD ORDERABLES Final R esult [facility] [address] [place] [address] * (ABNORMAL) CBC without differential (02/26/2025 3:04 AM CDT) WBC 16.74(H) 3.80 - 9.90 K/cumm Hgb 13.0 13.0 - 17.5 g/dL [facility] Hct 42.3 38.9 - 50.3 % [facility] Plt 211 150 - 400 K/cumm [facility] MPV 12.7(H) 9.1 - 12.3 fL [facility] RBC 4.53 4.30 - 5.80 M/cumm [facility] MCV 93.4 81.3 - 96.4 fL [facility] MCH 28.7 27.1 - 33.3 pg [facility] MCHC 30.7(L) 32.3 - 35.7 g/dL [facility] RDW CV 15.4(H) 11.1 - 14.9 % [facility] RDW SD 53.1(H) 35.7 - 48.1 fL [facility] NRBC abs 0.00 0.00 - 0.01 K/cumm [facility] Blood 02/26/2025 3:04 AM CDT 02/26/2025 3:24 AM CDT Maryjo Deshpande MD LAB BLOOD ORDERABLES Final R esult Performing Organization Address City/[facility]/ZIP Co de Phone Number [facility] [address] Department of [place] [place], [place] [id number] * (ABNORMAL) Magnesium (02/26/2025 3:04 AM CDT) Magnesium 2.7(H) 1.4 - 2.5 mg/dL Comment:Reviewed Blood 02/26/2025 3:04 AM CDT 02/26/2025 3:24 AM CDT Maryjo Deshpande MD LAB BLOOD ORDERABLES Final R esult Performing Organization Address [facility] Co de Phone Number [facility] [address] [place] [address] * (ABNORMAL) Renal function panel (02/26/2025 3:04 AM CDT) Sodium 142 135 - 145 mmol/L Potassium, pl 4.0 3.3 - 4.9 mmol/L [facility] Chloride 103 97 - 110 mmol/L [facility] CO2 23 22 - 32 mmol/L [facility] Anion gap 16(H) 2 - 15 mmol/L [facility] BUN 61(H) 6 - 25 mg/dL [facility] Creatinine 2.06(H) 0.80 - 1.30 mg/dL [facility] Glucose 233(H) 70 - 199 mg/dL [facility] Comment: Interpretive Data Fasting glucose >/= 126 mg/dl is diagnostic for diabetes. Fasting is defined as no caloric intake for at least 8 hours. Fasting glucose between 100 mg/dl to 125 mg/dl is diagnostic of prediabetes. In a patient with classic symptoms of hyperglycemia or hyperglycemic crisis, a random glucose >/= 200 mg/dl is diagnostic for diabetes. In the absence of unequivocal hyperglycemia, results should be confirmed by repeat testing. The classification and Diagnosis of Diabetes Diabetes Care 2021; 46: S19-S40. Current interpretive data was last revised 2022. Calcium 8.4(L) 8.5 - 10.3 mg/dL [facility] Phosphorus, pl 3.8 2.3 - 4.5 mg/dL [facility] Albumin 2.9(L) 3.5 - 5.0 g/dL [facility] Blood 02/26/2025 3:04 AM CDT 02/26/2025 3:24 AM CDT Maryjo Deshpande MD LAB BLOOD ORDERABLES Final R esult Performing Organization Address [facility]/ZIP Co de Phone Number [facility] [address] [facility] [place] [place], [place] [id number] * (ABNORMAL) POCT glucose (02/26/2025 1:30 AM CDT) Glucose, POC 257(H) 70 - 199 mg/dL Comment: For Glucose values <35 mg/dl when Hematocrit is >60 mg/dl,the test may not accurately detect significant hypoglycemia,and testing in the Laboratory should be considered if clinically indicated. POC Performer [id number] [facility] Blood 02/26/2025 1:30 AM CDT 02/26/2025 1:30 AM CDT us Maryjo Deshpande MD LAB POCT ORDERABLES - DEVICE Final Result Performing Organization Address [facility] Co de Phone Number [facility] [address] [facility] [place] [address] * (ABNORMAL) POCT glucose (02/25/2025 9:39 PM CDT) Glucose, POC 226(H) 70 - 199 mg/dL Comment: For Glucose values <35 mg/dl when Hematocrit is >60 mg/dl,the test may not accurately detect significant hypoglycemia,and testing in the Laboratory should be considered if clinically indicated. POC Performer [id number] [facility] Blood 02/25/2025 9:39 PM CDT 02/25/2025 9:39 PM CDT Maryjo Deshpande MD LAB POCT ORDERABLES - DEVICE Final Result Performing Organization Address [facility] de Phone Number [facility] [address] Department of [place], [place] [id number] * Potassium (02/25/2025 4:02 PM CDT) [facility] Potassium, pl 4.0 3.3 - 4.9 mmol/L Comment:Hemolyzed; potassium value may be falsely elevated by as much as 0.6 - 1.0 mmol/L. Suggest redraw and reanalysis Blood 02/25/2025 4:02 PM CDT 02/25/2025 4:12 PM CDT Maryjo Deshpande MD LAB BLOOD ORDERABLES Final R esult Performing Organization Address [facility] de Phone Number [facility] [address] [place] [address] * Magnesium (02/25/2025 4:02 PM CDT) [facility] Magnesium 2.1 1.4 - 2.5 mg/dL Blood 02/25/2025 4:02 PM CDT 02/25/2025 4:12 PM CDT Maryjo Dsehpande MD LAB BLOOD ORDERABLES Final R esult Performing Organization Address [facility] de Phone Number [facility] [address] [place] [address] * (ABNORMAL) POCT glucose (02/25/2025 3:50 PM CDT) [facility] Glucose, POC 226(H) 70 - 199 mg/dL Comment: For Glucose values <35 mg/dl when Hematocrit is >60 mg/dl,the test may not accurately detect significant hypoglycemia,and testing in the Laboratory should be considered if clinically indicated. POC Performer [id number] [facility] Blood 02/25/2025 3:50 PM CDT 02/25/2025 3:50 PM CDT Maryjo Deshpande MD LAB POCT ORDERABLES - DEVICE Final Result Performing Organization Address [facility] Co de Phone Number [facility] [address] Department of Laboratories [place], [place] [phone] * (ABNORMAL) POCT glucose (02/25/2025 11:32 AM CDT) [facility] Glucose, POC 221(H) 70 - 199 mg/dL Comment: For Glucose values <35 mg/dl when Hematocrit is >60 mg/dl,the test may not accurately detect significant hypoglycemia,and testing in the Laboratory should be considered if clinically indicated. POC Performer [id number] [facility] Blood 02/25/2025 11:3 2 AM CDT 02/25/2025 11:32 AM CDT Maryjo Deshpande MD LAB POCT ORDERABLES - DEVICE Final Result Performing Organization Address [facility] de Phone Number [facility] [address] Department [place], [place] [phone] * TRANSTHORACIC ECHO (TTE) LIMITED/FOLLOW UP W LTD DOPPLER/CF W CONTRAST (02/25/2025 10:45 AM CDT) [facility] Estimated EF 15-20 % CONS SCIMAGE Anatomical Region Laterality Modality Ultrasound 02/25/2025 8:41 AM CDT Narrative 02/25/2025 4:25 PM CDT [facility] [address] [place] [address] LIMITED ECHOCARDIOGRAM Patient Name: MAURICIO HEADLEY : 1955 (70y ) Gender: M Study Date: 02/25/2025 08:41:23 AM Ht(Inch): 67 Wt(Lb): 171.96 BSA: 1.92 Help Desk Technician: YUMIKO Location: [id number] Order Provider: MARYJO DESHPANDE BMI: 26.93 BP: 117/64 Ref Provider: MARYJO DESHPANDE - PROCEDURES: Echocardiographic Report: Limited TTE with contrast. INDICATIONS: Pericardial effusion. MEASUREMENTS: 2D/MM Value Range Doppler Value Range IVSd 2D 0.92 cm [ 0.60 - 1.00 ] RV S' 0.10 m/s LVIDd 2D 6.02 cm [ 4.20 - 5.80 ] Estimated EF 15-20 % TAPSE 1.68 cm [ 1.71 - 5.00 ] 2D/MM Value Range Doppler Value Range - FINDINGS: Study Quality: The study was technically adequate. BP: Blood pressure: 117/64 mmHg. Left Ventricle: Severe left ventricular systolic dysfunction. There is global hypokinesis. Ejection Fraction is estimated to be 15-20. Mild enlargement of left ventricle. Paradoxical septal motion consistent with IVCD or bundle branch block. LV wall thickness is within normal limits. Right Ventricle: Normal right ventricular systolic function. Normal right ventricular size. Left Atrium: There is mild enlargement of the left atrium. Right Atrium: The right atrium is normal in size. Atrial Septum: Normal appearing atrial septum. Mitral Valve: Both leaflets have a mild decrease in mobility. Aortic Valve: There is probably adequate aortic valve cusp separation. Tricuspid Valve: Grossly normal appearing tricuspid valve. Pulmonic Valve: The pulmonic valve is not seen. Pericardium: Moderate anterior pericardial effusion. There is no evidence of RV diastolic collapse or significant inflow variation across the tricuspid or mitral valves to suggests significant tamponade physiology. Pleural Effusion: There is a left pleural effusion present. Aortic Root and Aorta: Normal caliber aortic root. Aortic Arch: The aortic arch is not seen. IVC: The IVC is not seen. CONCLUSIONS: 1. Severe left ventricular systolic dysfunction. There is global hypokinesis. Ejection Fraction is estimated to be 15-20. Mild enlargement of left ventricle. Paradoxical septal motion consistent with IVCD or bundle branch block. LV wall thickness is within normal limits. 2. Normal right ventricular systolic function. Normal right ventricular size. 3. Moderate anterior pericardial effusion. There is no evidence of RV diastolic collapse or significant inflow variation across the tricuspid or mitral valves to suggests significant tamponade physiology. 4. There is a left pleural effusion present. 5. Compared with prior echo performed on 02/19/25, the pericardial effusion appears slightly diminished in size. Electronically Signed By: Jb Henning MD [facility] 02/25/2025 4:24:30 PM CDT Procedure Note Jb Henning MD - 02/25/2025 [id number] [place] [address] LIMITED ECHOCARDIOGRAM Patient Name: MAURICIO HEADLEY : 1955 (70y ) Gender: M Study Date: 02/25/2025 08:41:23 AM Ht(Inch): 67 Wt(Lb): 171.96 BSA: 1.92 Help Desk Technician: YUMIKO Location: [id number] Order Provider: MARYJO DESHPANDE BMI: 26.93 BP: 117/64 Ref Provider: MARYJO DESHPANDE - PROCEDURES: Echocardiographic Report: Limited TTE with contrast. INDICATIONS: Pericardial effusion. MEASUREMENTS: 2D/MM Value Range Doppler ValueRange IVSd 2D 0.92 cm [ 0.60 - 1.00 ] RV S' 0.10 m/s LVIDd 2D 6.02 cm [ 4.20 - 5.80 ] Estimated EF 15-20 % TAPSE 1.68 cm [ 1.71 - 5.00 ] 2D/MM Value Range Doppler ValueRange - FINDINGS: Study Quality: The study was technically adequate. BP: Blood pressure: 117/64 mmHg. Left Ventricle: Severe left ventricular systolic dysfunction. There isglobal hypokinesis. Ejection Fraction is estimated to be 15-20. Mild enlargementof left ventricle. Paradoxical septal motion consistent with IVCD or bundle branchblock. LV wall thickness is within normal limits. Right Ventricle: Normal right ventricular systolic function. Normal rightventricular size. Left Atrium: There is mild enlargement of the left atrium. Right Atrium: The right atrium is normal in size. Atrial Septum: Normal appearing atrial septum. Mitral Valve: Both leaflets have a mild decrease in mobility. Aortic Valve: There is probably adequate aortic valve cusp separation. Tricuspid Valve: Grossly normal appearing tricuspid valve. Pulmonic Valve: The pulmonic valve is not seen. Pericardium: Moderate anterior pericardial effusion. There is no evidenceof RV diastolic collapse or significant inflow variation across the tricuspid or mitralvalves to suggests significant tamponade physiology. Pleural Effusion: There is a left pleural effusion present. Aortic Root and Aorta: Normal caliber aortic root. Aortic Arch: The aortic arch is not seen. IVC: The IVC is not seen. CONCLUSIONS: 1. Severe left ventricular systolic dysfunction. There is globalhypokinesis. Ejection Fraction is estimated to be 15-20. Mild enlargement of left ventricle.Paradoxical septal motion consistent with IVCD or bundle branch block. LV wall thickness iswithin normal limits. 2. Normal right ventricular systolic function. Normal right ventricularsize. 3. Moderate anterior pericardial effusion. There is no evidence of RVdiastolic collapse or significant inflow variation across the tricuspid or mitral valves tosuggests significant tamponade physiology. 4. There is a left pleural effusion present. 5. Compared with prior echo performed on 02/19/25, the pericardial effusionappears slightly diminished in size. Electronically Signed By: Jb Henning MD [facility] 02/25/2025 4:24:30 PM CDT us Maryjo Deshpande MD CV ECHO PROCEDURES Final Res ult * (ABNORMAL) POCT glucose (02/25/2025 7:35 AM CDT) Glucose, POC 245(H) 70 - 199 mg/dL Comment: For Glucose values <35 mg/dl when Hematocrit is >60 mg/dl,the test may not accurately detect significant hypoglycemia,and testing in the Laboratory should be considered if clinically indicated. POC Performer [id number] [facility] Blood 02/25/2025 7:35 AM CDT 02/25/2025 7:35 AM CDT Maryjo Deshpande MD LAB POCT ORDERABLES - DEVICE Final Result Performing Organization Address [facility] Co de Phone Number [facility] [address] [facility] [place], [place] [phone] * POCT glucose (02/25/2025 4:21 AM CDT) Glucose, POC 192 70 - 199 mg/dL Comment: For Glucose values <35 mg/dl when Hematocrit is >60 mg/dl,the test may not accurately detect significant hypoglycemia,and testing in the Laboratory should be considered if clinically indicated. POC Performer [id number] [facility] Blood 02/25/2025 4:21 AM CDT 02/25/2025 4:21 AM CDT Maryjo Deshpande MD LAB POCT ORDERABLES - DEVICE Final Result Performing Organization Address [facility] Co de Phone Number [facility] [address] [facility] [place], [place] [phone] * XR Chest 1 View (02/25/2025 4:17 AM CDT) Anatomical Region Laterality Modality Body, Chest N/A Computed Radiogr aphy 02/25/2025 8:47 AM CDT Impressions 02/25/2025 8:47 AM CDT Comparison is made to 02/24/2025. The endotracheal tube tip is located 2.7 cm above the marisela. Nasogastric tube tip located with diaphragm, not included [id number]. Mediastinal wires unchanged in position. There is a small left pleural effusion with left retrocardiac and left basilar atelectasis. Mild right basilar atelectasis. No pneumothorax. Stable heart size. Electronically signed by: Fredi Epstein M.D. Narrative 02/25/2025 8:47 AM CDT Examination: Chest 1 view Procedure Note Fredi Epstein MD - 02/25/2025 Examination: Chest 1 view IMPRESSION: Comparison is made to 02/24/2025. The endotracheal tube tip is located 2.7 cm above the marisela. Nasogastric tube tip located with diaphragm, not included [id number]. Mediastinal wires unchanged in position. There is a small left pleural effusion with left retrocardiac and left basilar atelectasis. Mild right basilar atelectasis. No pneumothorax. Stable heart size. Electronically signed by: Fredi Epstein M.D. Maryjo Deshpande MD IMG XR PROCEDURES Final Resu lt * (ABNORMAL) eGFR (02/25/2025 3:40 AM CDT) eGFR 41(L) >=60 mL/min/1. 73 m2 Comment: Interpretive Data Reference Interval Normal >/= 90 mL/min/1.73m2 Mildly decreased* 60 - 89 mL/min/1.73m2 Mildly to moderately decreased 45 - 59 mL/min/1.73m2 Moderately to severely decreased 30 - 44 mL/min/1.73m2 Severely decreased 15 - 29 mL/min/1.73m2 Kidney Failure < 15 mL/min/1.73m2 *Relative to young adult level Estimated glomerular filtration rate is determined by the 2020 CKD-EPI equation recommended by the National Kidney [employer] (A Unifying Approach to GFR Estimation: Recommendations of the NKF-ASK Task Force on Reassessing the Inclusion of Race in Diagnosing Kidney Disease, JASN 2020). The CKD-EPI equation should not be used for patients with unstable renal function and has not been validated in children and those over 70. Current interpretive data was last reviewed 2021. Blood 02/25/2025 3:40 AM CDT 02/25/2025 3:44 AM CDT Maryjo Deshpande MD LAB BLOOD ORDERABLES Final R esult Performing Organization Address [facility] Co de Phone Number [facility] [address] [place], [place] [phone] * (ABNORMAL) CBC without differential (02/25/2025 3:40 AM CDT) Pathologist [facility] WBC 15.79(H) 3.80 - 9.90 K/cumm Hgb 11.4(L) 13.0 - 17.5 g/dL [facility] Hct 36.7(L) 38.9 - 50.3 % [facility] Plt 189 150 - 400 K/cumm [facility] MPV 12.4(H) 9.1 - 12.3 fL [facility] RBC 3.95(L) 4.30 - 5.80 M/cumm [facility] MCV 92.9 81.3 - 96.4 fL [facility] MCH 28.9 27.1 - 33.3 pg [facility] MCHC 31.1(L) 32.3 - 35.7 g/dL [facility] RDW CV 15.3(H) 11.1 - 14.9 % [facility] RDW SD 53.0(H) 35.7 - 48.1 fL [facility] NRBC abs 0.00 0.00 - 0.01 K/cumm [facility] Blood 02/25/2025 3:40 AM CDT 02/25/2025 3:44 AM CDT Maryjo Deshpadne MD LAB BLOOD ORDERABLES Final R esult Performing Organization Address City/[facility]/ZIP Co de Phone Number [facility] [address] [facility] [place] [address] * Magnesium (02/25/2025 3:40 AM CDT) Pathologist [facility] Magnesium 2.5 1.4 - 2.5 mg/dL Blood 02/25/2025 3:40 AM CDT 02/25/2025 3:44 AM CDT us Maryjo Deshpande MD LAB BLOOD ORDERABLES Final R esult [facility] [address] Department [place] [address] * (ABNORMAL) Renal function panel (02/25/2025 3:40 AM CDT) Pathologist [facility] Sodium 136 135 - 145 mmol/L Potassium, pl 3.1(L) 3.3 - 4.9 mmol/L [facility] Chloride 98 97 - 110 mmol/L [facility] CO2 21(L) 22 - 32 mmol/L [facility] Anion gap 17(H) 2 - 15 mmol/L [facility] BUN 54(H) 6 - 25 mg/dL [facility] Creatinine 1.75(H) 0.80 - 1.30 mg/dL [facility] Glucose 249(H) 70 - 199 mg/dL [facility] Comment: Interpretive Data Fasting glucose >/= 126 mg/dl is diagnostic for diabetes. Fasting is defined as no caloric intake for at least 8 hours. Fasting glucose between 100 mg/dl to 125 mg/dl is diagnostic of prediabetes. In a patient with classic symptoms of hyperglycemia or hyperglycemic crisis, a random glucose >/= 200 mg/dl is diagnostic for diabetes. In the absence of unequivocal hyperglycemia, results should be confirmed by repeat testing. The classification and Diagnosis of Diabetes Diabetes Care 202; 46: S19-S40. Current interpretive data was last revised 2022. Calcium 7.6(L) 8.5 - 10.3 mg/dL [facility] Phosphorus, pl 3.4 2.3 - 4.5 mg/dL [facility] Albumin 2.5(L) 3.5 - 5.0 g/dL [facility] Blood 02/25/2025 3:40 AM CDT 02/25/2025 3:44 AM CDT Maryjo Deshpande MD LAB BLOOD ORDERABLES Final R esult Performing Organization Address [facility] Co de Phone Number [facility] [address] Department [place], [place] [phone] * (ABNORMAL) POCT glucose (02/25/2025 12:17 AM CDT) Glucose, POC 208(H) 70 - 199 mg/dL Comment: For Glucose values <35 mg/dl when Hematocrit is >60 mg/dl,the test may not accurately detect significant hypoglycemia,and testing in the Laboratory should be considered if clinically indicated. POC Performer [phone] [facility] Blood 02/25/2025 12:1 7 AM CDT 02/25/2025 12:17 AM CDT Maryjo Deshpande MD LAB POCT ORDERABLES - DEVICE Final Result Performing Organization Address [facility] Co de Phone Number [facility] [address] Department [place], [place] [phone] * (ABNORMAL) POCT glucose (02/24/2025 7:49 PM CDT) Glucose, POC 244(H) 70 - 199 mg/dL Comment: For Glucose values <35 mg/dl when Hematocrit is >60 mg/dl,the test may not accurately detect significant hypoglycemia,and testing in the Laboratory should be considered if clinically indicated. POC Performer [id number] [facility] Blood 02/24/2025 7:49 PM CDT 02/24/2025 7:49 PM CDT Maryjo Deshpande MD LAB POCT ORDERABLES - DEVICE Final Result Performing Organization Address [facility] Co de Phone Number [facility] [address] Department [place], [place] [phone] * (ABNORMAL) POCT glucose (02/24/2025 3:21 PM CDT) Glucose, POC 227(H) 70 - 199 mg/dL Comment: For Glucose values <35 mg/dl when Hematocrit is >60 mg/dl,the test may not accurately detect significant hypoglycemia,and testing in the Laboratory should be considered if clinically indicated. POC Performer [id number] [facility] Blood 02/24/2025 3:21 PM CDT 02/24/2025 3:21 PM CDT us Maryjo Deshpande MD LAB POCT ORDERABLES - DEVICE Final Result Performing Organization Address City/[facility]/ZIP Co de Phone Number [facility] [address] [place] [address] * Potassium (02/24/2025 1:17 PM CDT) Pathologist [facility] Potassium, pl 3.7 3.3 - 4.9 mmol/L Comment:Hemolyzed; potassium value may be falsely elevated by as much as 0.3 - 0.5 mmol/L. Suggest redraw and reanalysis Blood 02/24/2025 1:17 PM CDT 02/24/2025 1:31 PM CDT Narrative [facility] - 02/24/2025 1:50 PM CDT Draw 4 hours after second potassium chloride dose completed. us Teodoro Nassar MD LAB BLOOD ORDERABLES Final R esult Performing Organization Address City/[facility]/ZIP Co de Phone Number [facility] [address] Department [employer] [place], [place] [phone] * POCT glucose (02/24/2025 11:35 AM CDT) Glucose, POC 196 70 - 199 mg/dL Comment: For Glucose values <35 mg/dl when Hematocrit is >60 mg/dl,the test may not accurately detect significant hypoglycemia,and testing in the Laboratory should be considered if clinically indicated. POC Performer [id number] [facility] Blood 02/24/2025 11:3 5 AM CDT 02/24/2025 11:35 AM CDT Maryjo Deshpande MD LAB POCT ORDERABLES - DEVICE Final Result Performing Organization Address City/[facility] Co de Phone Number [facility] [address] [facility] [place] [address] * (ABNORMAL) POCT glucose (02/24/2025 7:19 AM CDT) Glucose, POC 233(H) 70 - 199 mg/dL Comment: For Glucose values <35 mg/dl when Hematocrit is >60 mg/dl,the test may not accurately detect significant hypoglycemia,and testing in the Laboratory should be considered if clinically indicated. POC Performer [id number] [facility] Blood 02/24/2025 7:19 AM CDT 02/24/2025 7:19 AM CDT Maryjo Deshpande MD LAB POCT ORDERABLES - DEVICE Final Result Performing Organization Address [facility] de Phone Number [facility] [address] [facility] [place] [address] * (ABNORMAL) POCT glucose (02/24/2025 4:23 AM CDT) Glucose, POC 250(H) 70 - 199 mg/dL Comment: For Glucose values <35 mg/dl when Hematocrit is >60 mg/dl,the test may not accurately detect significant hypoglycemia,and testing in the Laboratory should be considered if clinically indicated. POC Performer [id number] [facility] Blood 02/24/2025 4:23 AM CDT 02/24/2025 4:23 AM CDT Maryjo Deshpande MD LAB POCT ORDERABLES - DEVICE Final Result Performing Organization Address City/[facility] Co de Phone Number [facility] [address] Department [place], [place] [phone] * XR Chest 1 View (02/24/2025 3:59 AM CDT) Anatomical Region Laterality Modality Body, Chest N/A Computed Radiogr aphy 02/24/2025 8:20 AM CDT Impressions 02/24/2025 8:20 AM CDT Comparison 02/22/2025. Median sternotomy wires are aligned and intact. Gastric tube seen with tip in the stomach and the sidehole near the gastroesophageal junction. Advancement recommended. Cardiomediastinal silhouette stable. Mild diffuse interstitial opacities seen compatible with mild pulmonary edema. Left retrocardiac atelectasis has improved. Small left pleural effusion again seen. No pneumothorax seen. Electronically signed by: Siva Taylor M.D. Narrative 02/24/2025 8:20 AM CDT EXAMINATION: Chest 1 view Procedure Note Siva Taylor MD - 02/24/2025 EXAMINATION: Chest 1 view IMPRESSION: Comparison 02/22/2025. Median sternotomy wires are aligned and intact. Gastric tube seen with tip in the stomach and the sidehole near the gastroesophageal junction. Advancement recommended. Cardiomediastinal silhouette stable. Mild diffuse interstitial opacities seen compatible with mild pulmonary edema. Left retrocardiac atelectasis has improved. Small left pleural effusion again seen. No pneumothorax seen. Electronically signed by: Siva Taylor M.D. Maryjo Deshpande MD IMG XR PROCEDURES Final Resu lt * (ABNORMAL) eGFR (02/24/2025 3:27 AM CDT) eGFR 37(L) >=60 mL/min/1. 73 m2 Comment: Interpretive Data Reference Interval Normal >/= 90 mL/min/1.73m2 Mildly decreased* 60 - 89 mL/min/1.73m2 Mildly to moderately decreased 45 - 59 mL/min/1.73m2 Moderately to severely decreased 30 - 44 mL/min/1.73m2 Severely decreased 15 - 29 mL/min/1.73m2 Kidney Failure < 15 mL/min/1.73m2 *Relative to young adult level Estimated glomerular filtration rate is determined by the 2020 CKD-EPI equation recommended by the National Kidney Foundation (A Unifying Approach to GFR Estimation: Recommendations of the NKF-ASK Task Force on Reassessing the Inclusion of Race in Diagnosing Kidney Disease, JASN 2020). The CKD-EPI equation should not be used for patients with unstable renal function and has not been validated in children and those over 70. Current interpretive data was last reviewed 2021. Blood 02/24/2025 3:27 AM CDT 02/24/2025 3:39 AM CDT us Maryjo Deshpande MD LAB BLOOD ORDERABLES Final R esult [facility] [address] [place] [address] * (ABNORMAL) CBC without differential (02/24/2025 3:27 AM CDT) WBC 14.37(H) 3.80 - 9.90 K/cumm Hgb 12.7(L) 13.0 - 17.5 g/dL [facility] Hct 42.1 38.9 - 50.3 % [facility] Plt 189 150 - 400 K/cumm [facility] MPV 11.8 9.1 - 12.3 fL [facility] RBC 4.37 4.30 - 5.80 M/cumm [facility] MCV 96.3 81.3 - 96.4 fL [facility] [facility] MCH 29.1 27.1 - 33.3 pg [facility] MCHC 30.2(L) 32.3 - 35.7 g/dL [facility] RDW CV 15.5(H) 11.1 - 14.9 % [facility] RDW SD 55.8(H) 35.7 - 48.1 fL [facility] NRBC abs 0.00 0.00 - 0.01 K/cumm [facility] Blood 02/24/2025 3:27 AM CDT 02/24/2025 3:38 AM CDT Maryjo Deshpande MD LAB BLOOD ORDERABLES Final R esult Performing Organization Address City/[facility]/ZIP Co de Phone Number [facility] [address]ina DarcieLázaro [address] Department of [place], [place] [id number] * (ABNORMAL) Magnesium (02/24/2025 3:27 AM CDT) Magnesium 2.6(H) 1.4 - 2.5 mg/dL Blood 02/24/2025 3:27 AM CDT 02/24/2025 3:39 AM CDT Maryjo Deshpande MD LAB BLOOD ORDERABLES Final R esult Performing Organization Address [facility] Co de Phone Number [facility] [address] [place] [address] * (ABNORMAL) Renal function panel (02/24/2025 3:27 AM CDT) Sodium 145 135 - 145 mmol/L Potassium, pl 3.0(L) 3.3 - 4.9 mmol/L [facility] Chloride 103 97 - 110 mmol/L [facility] CO2 23 22 - 32 mmol/L [facility] Anion gap 19(H) 2 - 15 mmol/L [facility] BUN 60(H) 6 - 25 mg/dL [facility] Creatinine 1.90(H) 0.80 - 1.30 mg/dL [facility] Glucose 229(H) 70 - 199 mg/dL [facility] Comment: Interpretive Data Fasting glucose >/= 126 mg/dl is diagnostic for diabetes. Fasting is defined as no caloric intake for at least 8 hours. Fasting glucose between 100 mg/dl to 125 mg/dl is diagnostic of prediabetes. In a patient with classic symptoms of hyperglycemia or hyperglycemic crisis, a random glucose >/= 200 mg/dl is diagnostic for diabetes. In the absence of unequivocal hyperglycemia, results should be confirmed by repeat testing. The classification and Diagnosis of Diabetes Diabetes Care 2021; 46: S19-S40. Current interpretive data was last revised 2022. Calcium 8.4(L) 8.5 - 10.3 mg/dL [facility] Phosphorus, pl 3.9 2.3 - 4.5 mg/dL [facility] Albumin 2.8(L) 3.5 - 5.0 g/dL [facility] Blood 02/24/2025 3:27 AM CDT 02/24/2025 3:39 AM CDT Maryjo Deshpande MD LAB BLOOD ORDERABLES Final R esult Performing Organization Address [facility]/ZIP Co de Phone Number [facility] [address] [facility] [place], [place] [id number] * (ABNORMAL) POCT glucose (02/24/2025 12:01 AM CDT) Glucose, POC 258(H) 70 - 199 mg/dL Comment: For Glucose values <35 mg/dl when Hematocrit is >60 mg/dl,the test may not accurately detect significant hypoglycemia,and testing in the Laboratory should be considered if clinically indicated. POC Performer [phone] [facility] Blood 02/24/2025 12:0 1 AM CDT 02/24/2025 12:01 AM CDT us Maryjo Deshpande MD LAB POCT ORDERABLES - DEVICE Final Result Performing Organization Address [facility] Co de Phone Number [facility] [address] [facility] [place] [address] * (ABNORMAL) POCT glucose (02/23/2025 8:43 PM CDT) Glucose, POC 244(H) 70 - 199 mg/dL Comment: For Glucose values <35 mg/dl when Hematocrit is >60 mg/dl,the test may not accurately detect significant hypoglycemia,and testing in the Laboratory should be considered if clinically indicated. POC Performer [id number] [facility] Blood 02/23/2025 8:43 PM CDT 02/23/2025 8:43 PM CDT Maryjo Deshpande MD LAB POCT ORDERABLES - DEVICE Final Result Performing Organization Address [facility] Co de Phone Number [facility] [address] [place] [address] * (ABNORMAL) POCT glucose (02/23/2025 4:22 PM CDT) Glucose, POC 225(H) 70 - 199 mg/dL Comment: For Glucose values <35 mg/dl when Hematocrit is >60 mg/dl,the test may not accurately detect significant hypoglycemia,and testing in the Laboratory should be considered if clinically indicated. POC Performer [id number] [facility] Blood 02/23/2025 4:22 PM CDT 02/23/2025 4:22 PM CDT Maryjo Deshpande MD LAB POCT ORDERABLES - DEVICE Final Result Performing Organization Address [facility] Co de Phone Number [facility] [address] [place] [address] * POCT glucose (02/23/2025 12:28 PM CDT) Glucose, POC 195 70 - 199 mg/dL Comment: For Glucose values <35 mg/dl when Hematocrit is >60 mg/dl,the test may not accurately detect significant hypoglycemia,and testing in the Laboratory should be considered if clinically indicated. POC Performer [phone] [facility] Blood 02/23/2025 12:2 8 PM CDT 02/23/2025 12:28 PM CDT Maryjo Deshpande MD LAB POCT ORDERABLES - DEVICE Final Result Performing Organization Address [facility] Co de Phone Number [facility] [address] [place] [address] * POCT glucose (02/23/2025 8:16 AM CDT) Pathologist [facility] Glucose, POC 166 70 - 199 mg/dL Comment: For Glucose values <35 mg/dl when Hematocrit is >60 mg/dl,the test may not accurately detect significant hypoglycemia,and testing in the Laboratory should be considered if clinically indicated. POC Performer [phone] [facility] Blood 02/23/2025 8:16 AM CDT 02/23/2025 8:16 AM CDT Evgeny Villalba MD LAB POCT ORDERABLES - DEV ICE Final Result Performing Organization Address City/[facility]/ZIP Co de Phone Number [facility] [address] [place] [address] * (ABNORMAL) eGFR (02/23/2025 4:10 AM CDT) [facility] eGFR 43(L) >=60 mL/min/1. 73 m2 Comment: Interpretive Data Reference Interval Normal >/= 90 mL/min/1.73m2 Mildly decreased* 60 - 89 mL/min/1.73m2 Mildly to moderately decreased 45 - 59 mL/min/1.73m2 Moderately to severely decreased 30 - 44 mL/min/1.73m2 Severely decreased 15 - 29 mL/min/1.73m2 Kidney Failure < 15 mL/min/1.73m2 *Relative to young adult level Estimated glomerular filtration rate is determined by the 2020 CKD-EPI equation recommended by the National Kidney Foundation (A Unifying Approach to GFR Estimation: Recommendations of the NKF-ASK Task Force on Reassessing the Inclusion of Race in Diagnosing Kidney Disease, JASN 2020). The CKD-EPI equation should not be used for patients with unstable renal function and has not been validated in children and those over 70. Current interpretive data was last reviewed 2021. Blood 02/23/2025 4:10 AM CDT 02/23/2025 4:19 AM CDT us Evgeny Villalba MD LAB BLOOD ORDERABLES Madhavi l Result [facility] [address] [place] [address] * (ABNORMAL) Pro B-type natriuretic peptide (02/23/2025 4:10 AM CDT) NT-proBNP 6,547(H) <=300 pg/mL Comment: Interpretive Comments: A. Dyspnea in Acute Care Setting All Ages: < 300 pg/ml, acute heart failure unlikely. < 50 yrs: 300 - 450 pg/ml, further investigation warranted. > 450 pg/ml, acute heart failure likely. 50 - 74 yrs: 300 - 900 pg/ml, further investigation warranted. > 900 pg/ml, acute heart failure likely . > or = 75 yrs: 450 - 1800 pg/ml, further investigation warranted. > 1800 pg/ml, acute heart failure likely. B. Non-acute Setting < 75 yrs < 125 pg/ml, rules out heart failure. > or = 125 pg/ml, further investigation warranted. > or = 75 yrs < 450 pg/ml, rules out heart failure. > or = 450 pg/ml, further investigation warranted. - Knowledge of each individual patient's NT-proBNP range may be more useful than using similar cut-points for every patient. Please note that marked elevations in NT-proBNP levels may be observed in state other than Left Ventricular Congestive Failure, including: acute coronary syndromes, right heart strain/failure (including pulmonary embolism and cor pulmonale), critical illness, renal failure, as well as advanced age. - References: 1. Dawson OROURKE et.al. Eur Heart J. 2006:27:330-337. 2. Uche RW, Gabriella LEUNG. J. AM Jacque Cardiol: Cardiovasc Imag. 2009;2: 216- 225. Interpretive Data Last Revised Date: 2018. Blood 02/23/2025 4:10 AM CDT 02/23/2025 4:19 AM CDT us Evgeny Villalba MD LAB BLOOD ORDERABLES Madhavi de luna Result [facility] [address] [place] [address] * Magnesium (02/23/2025 4:10 AM CDT) Pathologist [facility] Magnesium 2.5 1.4 - 2.5 mg/dL Blood 02/23/2025 4:10 AM CDT 02/23/2025 4:19 AM CDT Evgeny Villalba MD LAB BLOOD ORDERABLES Madhavi l Result [facility] [address] [place] [address] * (ABNORMAL) Basic metabolic panel (02/23/2025 4:10 AM CDT) Pathologist [facility] Sodium 151(H) 135 - 145 mmol/L Potassium, pl 3.8 3.3 - 4.9 mmol/L [facility] Chloride 109 97 - 110 mmol/L [facility] CO2 24 22 - 32 mmol/L [facility] Anion gap 18(H) 2 - 15 mmol/L [facility] BUN 56(H) 6 - 25 mg/dL [facility] Creatinine 1.68(H) 0.80 - 1.30 mg/dL [facility] Glucose 159 70 - 199 mg/dL [facility] Comment: Interpretive Data Fasting glucose >/= 126 mg/dl is diagnostic for diabetes. Fasting is defined as no caloric intake for at least 8 hours. Fasting glucose between 100 mg/dl to 125 mg/dl is diagnostic of prediabetes. In a patient with classic symptoms of hyperglycemia or hyperglycemic crisis, a random glucose >/= 200 mg/dl is diagnostic for diabetes. In the absence of unequivocal hyperglycemia, results should be confirmed by repeat testing. The classification and Diagnosis of Diabetes Diabetes Care 202; 46: S19-S40. Current interpretive data was last revised 2022. Calcium 8.6 8.5 - 10.3 mg/dL [facility] Blood 02/23/2025 4:10 AM CDT 02/23/2025 4:19 AM CDT Evgeny Villalba MD LAB BLOOD ORDERABLES Madhavi l Result Performing Organization Address [facility] Co de Phone Number [facility] [address] [facility] [place], [place] [id number] * POCT glucose (02/23/2025 3:59 AM CDT) Glucose, POC 138 70 - 199 mg/dL Comment: For Glucose values <35 mg/dl when Hematocrit is >60 mg/dl,the test may not accurately detect significant hypoglycemia,and testing in the Laboratory should be considered if clinically indicated. POC Performer [phone] [facility] Blood 02/23/2025 3:59 AM CDT 02/23/2025 3:59 AM CDT Evgeny Villalba MD LAB POCT ORDERABLES - DEV ICE Final Result Performing Organization Address [facility] de Phone Number [facility] [address] [facility] [place] [address] * POCT glucose (02/22/2025 11:31 PM CDT) Glucose, POC 127 70 - 199 mg/dL Comment: For Glucose values <35 mg/dl when Hematocrit is >60 mg/dl,the test may not accurately detect significant hypoglycemia,and testing in the Laboratory should be considered if clinically indicated. POC Performer [id number] [facility] Blood 02/22/2025 11:3 1 PM CDT 02/22/2025 11:31 PM CDT Evgeny Villalba MD LAB POCT ORDERABLES - DEV ICE Final Result Performing Organization Address [facility] Co de Phone Number [facility] [address] [facility] [place], [place] [id number] * (ABNORMAL) eGFR (02/22/2025 10:45 PM CDT) eGFR 49(L) >=60 mL/min/1. 73 m2 Comment: Interpretive Data Reference Interval Normal >/= 90 mL/min/1.73m2 Mildly decreased* 60 - 89 mL/min/1.73m2 Mildly to moderately decreased 45 - 59 mL/min/1.73m2 Moderately to severely decreased 30 - 44 mL/min/1.73m2 Severely decreased 15 - 29 mL/min/1.73m2 Kidney Failure < 15 mL/min/1.73m2 *Relative to young adult level Estimated glomerular filtration rate is determined by the 2020 CKD-EPI equation recommended by the National Kidney Foundation (A Unifying Approach to GFR Estimation: Recommendations of the NKF-ASK Task Force on Reassessing the Inclusion of Race in Diagnosing Kidney Disease, JASN 2020). The CKD-EPI equation should not be used for patients with unstable renal function and has not been validated in children and those over 70. Current interpretive data was last reviewed 2021. Blood 02/22/2025 10:4 5 PM CDT 02/22/2025 11:07 PM CDT us Teodoro Nassar MD LAB BLOOD ORDERABLES Final R esult Performing Organization Address City/[facility]/ZIP Co de Phone Number [facility] [address] [place] [address] * Magnesium (02/22/2025 10:45 PM CDT) Magnesium 2.5 1.4 - 2.5 mg/dL Blood 02/22/2025 10:4 5 PM CDT 02/22/2025 11:07 PM CDT Teodoro Nassar MD LAB BLOOD ORDERABLES Final R esult [facility] [address] [place], [place] [id number] * (ABNORMAL) Basic metabolic panel (02/22/2025 10:45 PM CDT) Sodium 153(H) 135 - 145 mmol/L Potassium, pl 3.5 3.3 - 4.9 mmol/L [facility] Chloride 109 97 - 110 mmol/L [facility] CO2 25 22 - 32 mmol/L [facility] Anion gap 19(H) 2 - 15 mmol/L [facility] BUN 53(H) 6 - 25 mg/dL [facility] Creatinine 1.51(H) 0.80 - 1.30 mg/dL [facility] Glucose 138 70 - 199 mg/dL [facility] Comment: Interpretive Data Fasting glucose >/= 126 mg/dl is diagnostic for diabetes. Fasting is defined as no caloric intake for at least 8 hours. Fasting glucose between 100 mg/dl to 125 mg/dl is diagnostic of prediabetes. In a patient with classic symptoms of hyperglycemia or hyperglycemic crisis, a random glucose >/= 200 mg/dl is diagnostic for diabetes. In the absence of unequivocal hyperglycemia, results should be confirmed by repeat testing. The classification and Diagnosis of Diabetes Diabetes Care 2021; 46: S19-S40. Current interpretive data was last revised 2022. Calcium 8.6 8.5 - 10.3 mg/dL [facility] Blood 02/22/2025 10:4 5 PM CDT 02/22/2025 11:07 PM CDT us Teodoro Nassar MD LAB BLOOD ORDERABLES Final R esult [facility] [address] [place] [address] * (ABNORMAL) POCT glucose (02/22/2025 8:04 PM CDT) Glucose, POC 201(H) 70 - 199 mg/dL Comment: For Glucose values <35 mg/dl when Hematocrit is >60 mg/dl,the test may not accurately detect significant hypoglycemia,and testing in the Laboratory should be considered if clinically indicated. POC Performer [phone] [facility] Blood 02/22/2025 8:04 PM CDT 02/22/2025 8:04 PM CDT us Evgeny Villalba MD LAB POCT ORDERABLES - DEV ICE Final Result Performing Organization Address City/[facility]/ZIP Co de Phone Number [facility] [address] [place] [address] * (ABNORMAL) POCT glucose (02/22/2025 5:07 PM CDT) Glucose, POC 288(H) 70 - 199 mg/dL Comment: For Glucose values <35 mg/dl when Hematocrit is >60 mg/dl,the test may not accurately detect significant hypoglycemia,and testing in the Laboratory should be considered if clinically indicated. POC Performer [id number] [facility] Blood 02/22/2025 5:07 PM CDT 02/22/2025 5:07 PM CDT Evgeny Villalba MD LAB POCT ORDERABLES - DEV ICE Final Result Performing Organization Address [facility] Co de Phone Number [facility] [address] [place] [address] * XR Kub (02/22/2025 4:30 PM CDT) Anatomical Region Laterality Modality Body, Abdomen N/A Computed Radiogr aphy 02/22/2025 4:41 PM CDT Impressions 02/22/2025 4:41 PM CDT The current study is compared with the prior radiograph dated 02/22/2025 at 3:21 AM a gastric tube remains in place, retracted from the prior, the side port is now at the level of the gastroesophageal junction, the tip projects over the gastric body. Median sternotomy wires are intact and aligned. An endotracheal tube tip terminates 2.8 cm above the marisela. There is left lower lobe atelectasis. Small left pleural effusion is unchanged. The subsequent abdominal radiograph shows the gastric tube in similar position, though the side port is now likely just distal to the gastroesophageal junction. Multiple loops of mildly dilated small bowel are seen throughout the upper abdomen Electronically signed by: Mario Yeboah M.D. Narrative 02/22/2025 4:41 PM CDT EXAMINATION: XR CHEST 1 VIEW, XR KUB Procedure Note Mario Yeboah MD - 02/22/2025 EXAMINATION: XR CHEST 1 VIEW, XR KUB IMPRESSION: The current study is compared with the prior radiograph dated 02/22/2025 at 3:21 AM a gastric tube remains in place, retracted from the prior, the side port is now at the level of the gastroesophageal junction, the tip projects over the gastric body. Median sternotomy wires are intact and aligned. An endotracheal tube tip terminates 2.8 cm above the marisela. There is left lower lobe atelectasis. Small left pleural effusion is unchanged. The subsequent abdominal radiograph shows the gastric tube in similar position, though the side port is now likely just distal to the gastroesophageal junction. Multiple loops of mildly dilated small bowel are seen throughout the upper abdomen Electronically signed by: Mario Yeboah M.D. us Teodoro Nassar MD IMG XR PROCEDURES Final Resu lt * (ABNORMAL) Blood gas, arterial (02/22/2025 3:34 PM CDT) pH, Art 7.28(L) 7.35 - 7.45 PCO2, Arterial 59(H) 35 - 45 mmHg [facility] PO2, Arterial 304(H) 83 - 108 mmHg [facility] HCO3 Art (Calculated) 28 20 - 30 mmol/L [facility] BE, art 0 mmol/L [facility] Comment: Interpretive Data No Reference Range Established Current Interpretive Data was last revised on 2017 O2 Sat Art (Calculated) 100(H) 94 - 98 % [facility] Blood 02/22/2025 3:34 PM CDT 02/22/2025 3:36 PM CDT us Evgeny Villalba MD LAB BLOOD ORDERABLES Madhavi de luna Result [facility] [address] [place] [address] * XR Chest 1 View (02/22/2025 3:12 PM CDT) Anatomical Region Laterality Modality Body, Chest N/A Computed Radiogr aphy 02/22/2025 4:41 PM CDT Impressions 02/22/2025 4:41 PM CDT The current study is compared with the prior radiograph dated 02/22/2025 at 3:21 AM a gastric tube remains in place, retracted from the prior, the side port is now at the level of the gastroesophageal junction, the tip projects over the gastric body. Median sternotomy wires are intact and aligned. An endotracheal tube tip terminates 2.8 cm above the marisela. There is left lower lobe atelectasis. Small left pleural effusion is unchanged. The subsequent abdominal radiograph shows the gastric tube in similar position, though the side port is now likely just distal to the gastroesophageal junction. Multiple loops of mildly dilated small bowel are seen throughout the upper abdomen Electronically signed by: Mario Yeboah M.D. Narrative 02/22/2025 4:41 PM CDT EXAMINATION: XR CHEST 1 VIEW, XR KUB Procedure Note Mario Yeboah MD - 02/22/2025 EXAMINATION: XR CHEST 1 VIEW, XR KUB IMPRESSION: The current study is compared with the prior radiograph dated 02/22/2025 at 3:21 AM a gastric tube remains in place, retracted from the prior, the side port is now at the level of the gastroesophageal junction, the tip projects over the gastric body. Median sternotomy wires are intact and aligned. An endotracheal tube tip terminates 2.8 cm above the marisela. There is left lower lobe atelectasis. Small left pleural effusion is unchanged. The subsequent abdominal radiograph shows the gastric tube in similar position, though the side port is now likely just distal to the gastroesophageal junction. Multiple loops of mildly dilated small bowel are seen throughout the upper abdomen Electronically signed by: Mario Yeboah M.D. Teodoro Nassar MD IMG XR PROCEDURES Final Resu lt * POCT glucose (02/22/2025 11:56 AM CDT) Glucose, POC 180 70 - 199 mg/dL Comment: For Glucose values <35 mg/dl when Hematocrit is >60 mg/dl,the test may not accurately detect significant hypoglycemia,and testing in the Laboratory should be considered if clinically indicated. POC Performer [phone] [facility] Blood 02/22/2025 11:5 6 AM CDT 02/22/2025 11:56 AM CDT Evgeny Villalba MD LAB POCT ORDERABLES - DEV ICE Final Result Performing Organization Address [facility] Co de Phone Number [facility] [address] [facility] [place] [address] * (ABNORMAL) POCT glucose (02/22/2025 7:14 AM CDT) Glucose, POC 232(H) 70 - 199 mg/dL Comment: For Glucose values <35 mg/dl when Hematocrit is >60 mg/dl,the test may not accurately detect significant hypoglycemia,and testing in the Laboratory should be considered if clinically indicated. POC Performer [phone] [facility] Blood 02/22/2025 7:14 AM CDT 02/22/2025 7:14 AM CDT Evgeny Villalba MD LAB POCT ORDERABLES - DEV ICE Final Result Performing Organization Address [facility] Co de Phone Number [facility] [address] [facility] [place] [address] * (ABNORMAL) POCT glucose (02/22/2025 3:59 AM CDT) Glucose, POC 260(H) 70 - 199 mg/dL Comment: For Glucose values <35 mg/dl when Hematocrit is >60 mg/dl,the test may not accurately detect significant hypoglycemia,and testing in the Laboratory should be considered if clinically indicated. POC Performer [phone] [facility] Blood 02/22/2025 3:59 AM CDT 02/22/2025 3:59 AM CDT Evgeny Villalba MD LAB POCT ORDERABLES - DEV ICE Final Result [facility] [address] [place] [address] * XR Chest 1 View (02/22/2025 3:33 AM CDT) Anatomical Region Laterality Modality Body, Chest N/A Computed Radiogr aphy 02/22/2025 8:02 AM CDT Impressions 02/22/2025 8:02 AM CDT The current study is compared with the prior radiograph dated 02/21/2025 An endotracheal tube is approximately 2.5 centimeters above the marisela. Median sternotomy wires are intact and aligned. Gastric tube courses below the diaphragm looping within the gastric fundus and coursing below the field of view. Small left greater than right layering pleural effusions with associated atelectasis. No pulmonary edema. No focal consolidation. No pneumothorax. The cardiomediastinal silhouette is unchanged given differences in rotation. Electronically signed by: Mario Yeboah M.D. Narrative 02/22/2025 8:02 AM CDT EXAMINATION: XR CHEST 1 VIEW Procedure Note Mario Yeboah MD - 02/22/2025 EXAMINATION: XR CHEST 1 VIEW IMPRESSION: The current study is compared with the prior radiograph dated 02/21/2025 An endotracheal tube is approximately 2.5 centimeters above the marisela. Median sternotomy wires are intact and aligned. Gastric tube courses below the diaphragm looping within the gastric fundus and coursing below the field of view. Small left greater than right layering pleural effusions with associated atelectasis. No pulmonary edema. No focal consolidation. No pneumothorax. The cardiomediastinal silhouette is unchanged given differences in rotation. Electronically signed by: Mario Yeboah M.D. Evgeny Villalba MD IMG XR PROCEDURES Final R esult * eGFR (02/22/2025 2:13 AM CDT) Pathologist [facility] eGFR 64 >=60 mL/min/1. 73 m2 Comment: Interpretive Data Reference Interval Normal >/= 90 mL/min/1.73m2 Mildly decreased* 60 - 89 mL/min/1.73m2 Mildly to moderately decreased 45 - 59 mL/min/1.73m2 Moderately to severely decreased 30 - 44 mL/min/1.73m2 Severely decreased 15 - 29 mL/min/1.73m2 Kidney Failure < 15 mL/min/1.73m2 *Relative to young adult level Estimated glomerular filtration rate is determined by the 2020 CKD-EPI equation recommended by the National Kidney Foundation (A Unifying Approach to GFR Estimation: Recommendations of the NKF-ASK Task Force on Reassessing the Inclusion of Race in Diagnosing Kidney Disease, JASN 2020). The CKD-EPI equation should not be used for patients with unstable renal function and has not been validated in children and those over 70. Current interpretive data was last reviewed 2021. Blood 02/22/2025 2:13 AM CDT 02/22/2025 2:19 AM CDT Evgeny Villalba MD LAB BLOOD ORDERABLES Madhavi l Result Performing Organization Address City/[facility] Co de Phone Number [facility] [address] [place], [place] [phone] * Magnesium (02/22/2025 2:13 AM CDT) [facility] Magnesium 2.4 1.4 - 2.5 mg/dL Blood 02/22/2025 2:13 AM CDT 02/22/2025 2:19 AM CDT Evgeny Villalba MD LAB BLOOD ORDERABLES Madhavi l Result Performing Organization Address City/[facility]/ZIP Co de Phone Number [facility] [address] [place] [address] * (ABNORMAL) Basic metabolic panel (02/22/2025 2:13 AM CDT) [facility] Sodium 151(H) 135 - 145 mmol/L Potassium, pl 4.4 3.3 - 4.9 mmol/L [facility] Chloride 112(H) 97 - 110 mmol/L [facility] CO2 25 22 - 32 mmol/L [facility] Anion gap 14 2 - 15 mmol/L [facility] BUN 44(H) 6 - 25 mg/dL [facility] Creatinine 1.20 0.80 - 1.30 mg/dL [facility] Glucose 256(H) 70 - 199 mg/dL [facility] Comment: Interpretive Data Fasting glucose >/= 126 mg/dl is diagnostic for diabetes. Fasting is defined as no caloric intake for at least 8 hours. Fasting glucose between 100 mg/dl to 125 mg/dl is diagnostic of prediabetes. In a patient with classic symptoms of hyperglycemia or hyperglycemic crisis, a random glucose >/= 200 mg/dl is diagnostic for diabetes. In the absence of unequivocal hyperglycemia, results should be confirmed by repeat testing. The classification and Diagnosis of Diabetes Diabetes Care 202; 46: S19-S40. Current interpretive data was last revised 2022. Calcium 8.6 8.5 - 10.3 mg/dL [facility] Blood 02/22/2025 2:13 AM CDT 02/22/2025 2:19 AM CDT us Evgeny Villalba MD LAB BLOOD ORDERABLES Madhavi de luna Result [facility] [address] [place] [address] * (ABNORMAL) POCT glucose (02/21/2025 11:38 PM CDT) [facility] Glucose, POC 229(H) 70 - 199 mg/dL Comment: For Glucose values <35 mg/dl when Hematocrit is >60 mg/dl,the test may not accurately detect significant hypoglycemia,and testing in the Laboratory should be considered if clinically indicated. POC Performer [id number] [facility] Blood 02/21/2025 11:3 8 PM CDT 02/21/2025 11:38 PM CDT Evgeny Villalba MD LAB POCT ORDERABLES - DEV ICE Final Result Performing Organization Address City/[facility]/ZIP Co de Phone Number [facility] [address] [place] [address] * (ABNORMAL) POCT glucose (02/21/2025 7:44 PM CDT) Glucose, POC 283(H) 70 - 199 mg/dL Comment: For Glucose values <35 mg/dl when Hematocrit is >60 mg/dl,the test may not accurately detect significant hypoglycemia,and testing in the Laboratory should be considered if clinically indicated. POC Performer [phone] [facility] Blood 02/21/2025 7:44 PM CDT 02/21/2025 7:44 PM CDT Evgeny Villalba MD LAB POCT ORDERABLES - DEV ICE Final Result Performing Organization Address [facility] Co de Phone Number [facility] [address] Department [place], [place] [phone] * (ABNORMAL) POCT glucose (02/21/2025 3:52 PM CDT) Glucose, POC 240(H) 70 - 199 mg/dL Comment: For Glucose values <35 mg/dl when Hematocrit is >60 mg/dl,the test may not accurately detect significant hypoglycemia,and testing in the Laboratory should be considered if clinically indicated. POC Performer [phone] [facility] Blood 02/21/2025 3:52 PM CDT 02/21/2025 3:52 PM CDT Result [facility] Evgeny Villalba MD LAB POCT ORDERABLES - DEV ICE Final Result Performing Organization Address City/[facility]/ZIP Co de Phone Number [facility] [address] [place] [address] * (ABNORMAL) POCT glucose (02/21/2025 11:17 AM CDT) Glucose, POC 217(H) 70 - 199 mg/dL Comment: For Glucose values <35 mg/dl when Hematocrit is >60 mg/dl,the test may not accurately detect significant hypoglycemia,and testing in the Laboratory should be considered if clinically indicated. POC Performer [id number] [facility] Blood 02/21/2025 11:1 7 AM CDT 02/21/2025 11:17 AM CDT Evgeny Villalba MD LAB POCT ORDERABLES - DEV ICE Final Result Performing Organization Address [facility] Co de Phone Number [facility] [address] [place], [place] [phone] * (ABNORMAL) POCT glucose (02/21/2025 7:24 AM CDT) Glucose, POC 216(H) 70 - 199 mg/dL Comment: For Glucose values <35 mg/dl when Hematocrit is >60 mg/dl,the test may not accurately detect significant hypoglycemia,and testing in the Laboratory should be considered if clinically indicated. POC Performer [phone] [facility] Blood 02/21/2025 7:24 AM CDT 02/21/2025 7:24 AM CDT Evgeny Villalba MD LAB POCT ORDERABLES - DEV ICE Final Result Performing Organization Address City/[facility]/ZIP Co de Phone Number [facility] [address] [place], [place] [id number] * Magnesium - Add on lab test (02/21/2025 5:14 AM CDT) Acceptable Yes Blood 02/21/2025 5:14 AM CDT 02/21/2025 5:14 AM CDT N[facility]ative [facility] - 02/21/2025 5:16 AM CDT Name of Test->Magnesium Luis M Vasquez MD LAB BLOOD ORDERABLES Final Result Performing Organization Address City/[facility]/ZIP Co de Phone Number [facility] [address] [place] [address] * BMP - Add on lab test (02/21/2025 5:14 AM CDT) Acceptable No Blood 02/21/2025 5:14 AM CDT 02/21/2025 5:14 AM CDT Narrative [facility] - 02/21/2025 5:16 AM CDT Name of Test->BMP Luis M Vasquez MD LAB BLOOD ORDERABLES Final Result Performing Organization Address [facility] Co de Phone Number [facility] [address] [place] [address] * XR Chest 1 View (02/21/2025 4:31 AM CDT) Anatomical Region Laterality Modality Body, Chest N/A Computed Radiogr aphy 02/21/2025 4:45 AM CDT Impressions 02/21/2025 4:45 AM CDT Endotracheal tube tip is 2.5 cm above the marisela. Gastric tube courses below the diaphragm and tip projects below the [id number]. Median sternotomy wires are unchanged. Stable small left pleural effusion and probable small layering right pleural effusion. Moderate left basilar atelectasis is unchanged. No pneumothorax. The heart size is stable. Electronically signed by: Emre Carlisle MD, PHD Narrative 02/21/2025 4:45 AM CDT EXAMINATION: XR CHEST 1 VIEW HISTORY: resp failure COMPARISON: 02/20/2025 Procedure Note Emre Carlisle MD PhD - 02/21/2025 EXAMINATION: XR CHEST 1 VIEW HISTORY: resp failure COMPARISON: 02/20/2025 IMPRESSION: Endotracheal tube tip is 2.5 cm above the marisela. Gastric tube courses below the diaphragm and tip projects below the [id number]. Median sternotomy wires are unchanged. Stable small left pleural effusion and probable small layering right pleural effusion. Moderate left basilar atelectasis is unchanged. No pneumothorax. The heart size is stable. Electronically signed by: Emre Carlisle MD, PHD us Rehana Shipley DO IMG XR PROCEDURES Madhavi l Result * Lactate (02/21/2025 3:13 AM CDT) Lactate 1.3 0.7 - 2.0 mmol/L Blood 02/21/2025 3:13 AM CDT 02/21/2025 3:14 AM CDT Rehana Shipley DO LAB BLOOD ORDERABLES F inal Result [facility] [address] [place] [address] * (ABNORMAL) eGFR (02/21/2025 3:13 AM CDT) eGFR 55(L) >=60 mL/min/1. 73 m2 Comment: Interpretive Data Reference Interval Normal >/= 90 mL/min/1.73m2 Mildly decreased* 60 - 89 mL/min/1.73m2 Mildly to moderately decreased 45 - 59 mL/min/1.73m2 Moderately to severely decreased 30 - 44 mL/min/1.73m2 Severely decreased 15 - 29 mL/min/1.73m2 Kidney Failure < 15 mL/min/1.73m2 *Relative to young adult level Estimated glomerular filtration rate is determined by the 2020 CKD-EPI equation recommended by the National Kidney Foundation (A Unifying Approach to GFR Estimation: Recommendations of the NKF-ASK Task Force on Reassessing the Inclusion of Race in Diagnosing Kidney Disease, JASN 2020). The CKD-EPI equation should not be used for patients with unstable renal function and has not been validated in children and those over 70. Current interpretive data was last reviewed 2021. Blood 02/21/2025 3:13 AM CDT 02/21/2025 3:56 AM CDT us Rehana Kaylanleonardo Shipley DO LAB BLOOD ORDERABLES F inal Result [facility] [address] [place] [address] * (ABNORMAL) Differential, auto (02/21/2025 3:13 AM CDT) Pathologist [facility] Neutrophil abs 9.98(H) 1.50 - 6.50 K/cumm Imm gran abs 0.10 0.00 - 0.10 K/cumm [facility] Lymphocyte abs 1.65 0.80 - 3.30 K/cumm [facility] Monocyte abs 1.38(H) 0.20 - 0.80 K/cumm [facility] Eosinophil abs 0.01 0.00 - 0.50 K/cumm [facility] Basophil abs 0.04 0.00 - 0.10 K/cumm [facility] Neutrophil pct 75.8 % [facility] Comment: Interpretive Data Percent cell count reference ranges are not reported, since discordance with absolute values may lead to misinterpretation of CBC data. Current Interpretive Data was last revised on 2018. Imm gran pct 0.8 % [facility] Comment: Interpretive Data Percent cell count reference ranges are not reported, since discordance with absolute values may lead to misinterpretation of CBC data. Current Interpretive Data was last revised on 2018. Lymphocyte pct 12.5 % [facility] Comment: Interpretive Data Percent cell count reference ranges are not reported, since discordance with absolute values may lead to misinterpretation of CBC data. Current Interpretive Data was last revised on 2018. Monocyte pct 10.5 % [facility] Comment: Interpretive Data Percent cell count reference ranges are not reported, since discordance with absolute values may lead to misinterpretation of CBC data. Current Interpretive Data was last revised on 2018. Eosinophil pct 0.1 % [facility] Comment: Interpretive Data Percent cell count reference ranges are not reported, since discordance with absolute values may lead to misinterpretation of CBC data. Current Interpretive Data was last revised on 2018. Basophil pct 0.3 % [facility] Comment: Interpretive Data Percent cell count reference ranges are not reported, since discordance with absolute values may lead to misinterpretation of CBC data. Current Interpretive Data was last revised on 2018. Blood 02/21/2025 3:13 AM CDT 02/21/2025 3:56 AM CDT Rehana Mackeyjerzy DO LAB BLOOD ORDERABLES F inal Result Performing Organization Address [facility]/ZIP Co de Phone Number [facility] [address] [place] [address] * (ABNORMAL) Procalcitonin (02/21/2025 3:13 AM CDT) [facility] Procalcitonin 1.03(H) <=0.25 ng/mL Blood 02/21/2025 3:13 AM CDT 02/21/2025 3:56 AM CDT Rehana Camposleonardo Shipley DO LAB BLOOD ORDERABLES F inal Result Performing Organization Address [facility] Co de Phone Number [facility] [address] [place], [place] [phone] * (ABNORMAL) CBC with auto differential (02/21/2025 3:13 AM CDT) [facility] WBC 13.16(H) 3.80 - 9.90 K/cumm Hgb 13.1 13.0 - 17.5 g/dL [facility] Hct 43.9 38.9 - 50.3 % [facility] Plt 176 150 - 400 K/cumm [facility] MPV 11.6 9.1 - 12.3 fL [facility] RBC 4.56 4.30 - 5.80 M/cumm [facility] MCV 96.3 81.3 - 96.4 fL [facility] MCH 28.7 27.1 - 33.3 pg [facility] MCHC 29.8(L) 32.3 - 35.7 g/dL [facility] RDW CV 15.9(H) 11.1 - 14.9 % [facility] RDW SD 56.6(H) 35.7 - 48.1 fL [facility] NRBC abs 0.00 0.00 - 0.01 K/cumm [facility] Blood 02/21/2025 3:13 AM CDT 02/21/2025 3:56 AM CDT Speclerice Violetta DO LAB BLOOD ORDERABLES F inal Result Performing Organization Address City/[facility]/ZIP Co de Phone Number [place] [address] [facility] [place], [place] [phone] * Phosphorus (02/21/2025 3:13 AM CDT) Phosphorus, pl 3.0 2.3 - 4.5 mg/dL Blood 02/21/2025 3:13 AM CDT 02/21/2025 3:56 AM CDT Rehana Kaylan Shipley DO LAB BLOOD ORDERABLES F inal Result Performing Organization Address [facility] Co de Phone Number [place] [address] [place] [address] * Magnesium (02/21/2025 3:13 AM CDT) Magnesium 2.3 1.4 - 2.5 mg/dL Blood 02/21/2025 3:13 AM CDT 02/21/2025 3:56 AM CDT Erhana Kaylan eSiliconjerzy DO LAB BLOOD ORDERABLES F inal Result [facility] [address] Department [place], [place] [phone] * (ABNORMAL) Comprehensive metabolic panel (02/21/2025 3:13 AM CDT) Sodium 147(H) 135 - 145 mmol/L Potassium, pl 4.1 3.3 - 4.9 mmol/L [facility] Chloride 111(H) 97 - 110 mmol/L [facility] CO2 23 22 - 32 mmol/L [facility] Anion gap 13 2 - 15 mmol/L [facility] BUN 37(H) 6 - 25 mg/dL [facility] Creatinine 1.37(H) 0.80 - 1.30 mg/dL [facility] Glucose 213(H) 70 - 199 mg/dL [facility] Comment: Interpretive Data Fasting glucose >/= 126 mg/dl is diagnostic for diabetes. Fasting is defined as no caloric intake for at least 8 hours. Fasting glucose between 100 mg/dl to 125 mg/dl is diagnostic of prediabetes. In a patient with classic symptoms of hyperglycemia or hyperglycemic crisis, a random glucose >/= 200 mg/dl is diagnostic for diabetes. In the absence of unequivocal hyperglycemia, results should be confirmed by repeat testing. The classification and Diagnosis of Diabetes Diabetes Care 2021; 46: S19-S40. Current interpretive data was last revised 2022. Calcium 8.3(L) 8.5 - 10.3 mg/dL [facility] Bilirubin, total 0.5 0.1 - 1.2 mg/dL [facility] Protein, pl 6.3(L) 6.5 - 8.5 g/dL [facility] Albumin 2.9(L) 3.5 - 5.0 g/dL [facility] Alk phos 82 40 - 130 Units/L [facility] ALT 8 7 - 55 Units/L [facility] AST 18 10 - 50 Units/L [facility] Blood 02/21/2025 3:13 AM CDT 02/21/2025 3:56 AM CDT us Rehana Shipley DO LAB BLOOD ORDERABLES F inal Result [facility] [address] [place] [address] * POCT glucose (02/21/2025 3:01 AM CDT) Glucose, POC 198 70 - 199 mg/dL Comment: For Glucose values <35 mg/dl when Hematocrit is >60 mg/dl,the test may not accurately detect significant hypoglycemia,and testing in the Laboratory should be considered if clinically indicated. POC Performer [id number] [facility] Blood 02/21/2025 3:01 AM CDT 02/21/2025 3:01 AM CDT Rehana Kaylan eSiliconjerzy LAB POCT ORDERABLES - DEVICE Final Result Performing Organization Address [facility] Co de Phone Number [facility] [address] [place] [address] * (ABNORMAL) POCT glucose (02/20/2025 11:57 PM CDT) Glucose, POC 204(H) 70 - 199 mg/dL Comment: For Glucose values <35 mg/dl when Hematocrit is >60 mg/dl,the test may not accurately detect significant hypoglycemia,and testing in the Laboratory should be considered if clinically indicated. POC Performer [phone] [facility] Blood 02/20/2025 11:5 7 PM CDT 02/20/2025 11:57 PM CDT Rehana Kaylan Shipley LAB POCT ORDERABLES - DEVICE Final Result Performing Organization Address [facility]/ZIP Co de Phone Number [facility] [address] [facility] [place] [address] * POCT glucose (02/20/2025 7:40 PM CDT) Glucose, POC 166 70 - 199 mg/dL Comment: For Glucose values <35 mg/dl when Hematocrit is >60 mg/dl,the test may not accurately detect significant hypoglycemia,and testing in the Laboratory should be considered if clinically indicated. POC Performer [phone] [facility] Blood 02/20/2025 7:40 PM CDT 02/20/2025 7:40 PM CDT Rehaan Shipley Duxter LAB POCT ORDERABLES - DEVICE Final Result Performing Organization Address [facility]/ZIP Co de Phone Number [facility] [address] Department of Laboratories [place], [place] [phone] * (ABNORMAL) POCT glucose (02/20/2025 5:38 PM CDT) Glucose, POC 214(H) 70 - 199 mg/dL Comment: For Glucose values <35 mg/dl when Hematocrit is >60 mg/dl,the test may not accurately detect significant hypoglycemia,and testing in the Laboratory should be considered if clinically indicated. POC Performer [phone] [facility] Blood 02/20/2025 5:38 PM CDT 02/20/2025 5:38 PM CDT Rehana Mackeyjerzy Duxter LAB POCT ORDERABLES - DEVICE Final Result Performing Organization Address City/[facility]/ZIP Co de Phone Number [facility] [address] Department [place], [place] [phone] * (ABNORMAL) eGFR (02/20/2025 5:36 PM CDT) eGFR 50(L) >=60 mL/min/1. 73 m2 Comment: Interpretive Data Reference Interval Normal >/= 90 mL/min/1.73m2 Mildly decreased* 60 - 89 mL/min/1.73m2 Mildly to moderately decreased 45 - 59 mL/min/1.73m2 Moderately to severely decreased 30 - 44 mL/min/1.73m2 Severely decreased 15 - 29 mL/min/1.73m2 Kidney Failure < 15 mL/min/1.73m2 *Relative to young adult level Estimated glomerular filtration rate is determined by the 2020 CKD-EPI equation recommended by the National Kidney Foundation (A Unifying Approach to GFR Estimation: Recommendations of the NKF-ASK Task Force on Reassessing the Inclusion of Race in Diagnosing Kidney Disease, JASN 2020). The CKD-EPI equation should not be used for patients with unstable renal function and has not been validated in children and those over 70. Current interpretive data was last reviewed 2021. Blood 02/20/2025 5:36 PM CDT 02/20/2025 5:48 PM CDT Rehana Shipley DO LAB BLOOD ORDERABLES F inal Result Performing Organization Address [facility] de Phone Number [facility] [address] [place] [address] * Strep pneumoniae antigen, urine Urine (02/20/2025 5:36 PM CDT) S. pneumoniae Ag Negative Negative Comment: Interpretive Data A positive result is indicative of pneumococcal pneumonia in patients with severe CAP. Cross-reactivity with closely related Streptococcus bacteria may occur. A negative result suggests no current or recent pneumococcal infection but cannot rule out infection with S. pneumoniae. The results of this testing should be used in conjunction with clinical findings and other diagnostic testing, including microbiologic culture. Current Interpretive Data was last revised on 2022 Urine 02/20/2025 5:36 PM CDT 02/20/2025 5:36 PM CDT Rehana Shipley DO LAB MICROBIOLOGY - GEN ERAL ORDERABLES Final Result Performing Organization Address [facility] de Phone Number [facility] [address] [place] [address] * Legionella antigen Urine (02/20/2025 5:36 PM CDT) Legionella Ag Negative Negative Comment: Interpretive Data This test detects only Legionella pneumophila serogroup 1 antigen. Current interpretive data was last revised on 2019. Urine 02/20/2025 5:36 PM CDT 02/20/2025 5:36 PM CDT Rehana Shipley DO LAB MICROBIOLOGY - GEN ERAL ORDERABLES Final Result [facility] [address] [place] [address] * Magnesium (02/20/2025 5:36 PM CDT) [facility] Magnesium 2.2 1.4 - 2.5 mg/dL Blood 02/20/2025 5:36 PM CDT 02/20/2025 5:48 PM CDT Rehana Kaylan Violetta LAB BLOOD ORDERABLES F inal Result Performing Organization Address [facility] Co de Phone Number [facility] [address] [place] [address] * (ABNORMAL) Basic metabolic panel (02/20/2025 5:36 PM CDT) [facility] Sodium 147(H) 135 - 145 mmol/L Potassium, pl 3.8 3.3 - 4.9 mmol/L [facility] Chloride 109 97 - 110 mmol/L [facility] CO2 22 22 - 32 mmol/L [facility] Anion gap 16(H) 2 - 15 mmol/L [facility] BUN 34(H) 6 - 25 mg/dL [facility] Creatinine 1.49(H) 0.80 - 1.30 mg/dL [facility] Glucose 188 70 - 199 mg/dL [facility] Comment: Interpretive Data Fasting glucose >/= 126 mg/dl is diagnostic for diabetes. Fasting is defined as no caloric intake for at least 8 hours. Fasting glucose between 100 mg/dl to 125 mg/dl is diagnostic of prediabetes. In a patient with classic symptoms of hyperglycemia or hyperglycemic crisis, a random glucose >/= 200 mg/dl is diagnostic for diabetes. In the absence of unequivocal hyperglycemia, results should be confirmed by repeat testing. The classification and Diagnosis of Diabetes Diabetes Care 2021; 46: S19-S40. Current interpretive data was last revised 2022. Calcium 8.0(L) 8.5 - 10.3 mg/dL [facility] Blood 02/20/2025 5:36 PM CDT 02/20/2025 5:48 PM CDT Rehana Mackeyjerzy LAB BLOOD ORDERABLES F inal Result Performing Organization Address [facility] Co de Phone Number [facility] [address] [place] [address] * (ABNORMAL) Troponin T high-sensitivity (02/20/2025 1:08 PM CDT) [facility] Trop T hs 88(H) <=22 ng/L Comment: Interpretive Data For further hscTnT resources including the diagnostic algorithm and an aid in interpretation, copy and paste this link: https://nrl.testcatalog.org/show/hsTrop Current Interpretive Data last revised 2020. Blood 02/20/2025 1:08 PM CDT 02/20/2025 1:14 PM CDT Rehana Kimbrough Violetta LAB BLOOD ORDERABLES F inal Result Performing Organization Address [facility] [facility] de Phone Number [facility] [address] [place] [address] * Potassium (02/20/2025 1:08 PM CDT) [facility] Potassium, pl 3.3 3.3 - 4.9 mmol/L Comment:Hemolyzed; potassium value may be falsely elevated by as much as 0.3 - 0.5 mmol/L. Suggest redraw and reanalysis Blood 02/20/2025 1:08 PM CDT 02/20/2025 1:14 PM CDT Narrative [facility] - 02/20/2025 1:32 PM CDT Draw 4 hours after second potassium chloride dose completed. Brayden Roach MD LAB BLOOD ORDERABLES Final Result Performing Organization Address City/[facility]/ZIP Co de Phone Number [facility] [address] [place] [address] * POCT glucose (02/20/2025 1:01 PM CDT) Glucose, POC 193 70 - 199 mg/dL Comment: For Glucose values <35 mg/dl when Hematocrit is >60 mg/dl,the test may not accurately detect significant hypoglycemia,and testing in the Laboratory should be considered if clinically indicated. POC Performer [phone] [facility] Blood 02/20/2025 1:0 1 PM CDT 02/20/2025 1:01 PM CDT us Rehana Shipley DO LAB POCT ORDERABLES - DEVICE Final Result Performing Organization Address [facility] Co de Phone Number [facility] [address] [place] [address] * Blood culture Blood (02/20/2025 10:36 AM CDT) Report Final Report: No growth Blood 02/20/2025 10:3 6 AM CDT 02/20/2025 10:38 AM CDT Narrative [facility] - 02/25/2025 1:00 PM CDT From a different site than #1. Collection->Peripheral Interpretive Data 1. Blood cultures are incubated and monitored continuously for 5 days (120 hours). The first negative report is issued within 24 hours of receipt in the laboratory. 2. All positive cultures are resulted and called to physicians/care providers as soon as they are detected. 3. A rapid molecular test for organism identification may be performed using the [employer] Blood Culture Identification panel. This assay detects microbial DNA in a blood culture broth. This assay has been cleared by the [place] Food and Drug Administration and its performance characteristics have been verified by the [facility] Microbiology Laboratory. Interpretive data was last revised on November 09, 2022. us Rehana Shipley LAB MICROBIOLOGY - GEN ERAL ORDERABLES Final Result Performing Organization Address [facility]/ZIP Co de Phone Number [facility] [address] [facility] [place] [address] * Blood culture Blood (02/20/2025 10:36 AM CDT) Report Final Report: No growth Blood 02/20/2025 10:3 6 AM CDT 02/20/2025 10:38 AM CDT [facility]ative [facility] - 02/25/2025 1:00 PM CDT Collection->Peripheral Interpretive Data 1. Blood cultures are incubated and monitored continuously for 5 days (120 hours). The first negative report is issued within 24 hours of receipt in the laboratory. 2. All positive cultures are resulted and called to physicians/care providers as soon as they are detected. 3. A rapid molecular test for organism identification may be performed using the [employer] Blood Culture Identification panel. This assay detects microbial DNA in a blood culture broth. This assay has been cleared by the [place] Food and Drug Administration and its performance characteristics have been verified by the [facility] Microbiology Laboratory. Interpretive data was last revised on November 09, 2022. Rehana Shipley [facility] MICROBIOLOGY - GEN ERAL ORDERABLES Final Result Performing Organization Address [facility] Co de Phone Number [facility] [address] Department [place] [address] * (ABNORMAL) POCT glucose (02/20/2025 8:48 AM CDT) Glucose, POC 223(H) 70 - 199 mg/dL Comment: For Glucose values <35 mg/dl when Hematocrit is >60 mg/dl,the test may not accurately detect significant hypoglycemia,and testing in the Laboratory should be considered if clinically indicated. POC Performer [phone] [facility] Blood 02/20/2025 8:48 AM CDT 02/20/2025 8:48 AM CDT Rehana Shipley DO LAB POCT ORDERABLES - DEVICE Final Result Performing Organization Address [facility]/ZIP Co de Phone Number [facility] [address] [place] [address] * (ABNORMAL) Aerobic culture and gram stain Tracheal aspirate Lung (02/20/2025 6:57 AM CDT) Direct Specimen Exam Stain: Moderate squamous epithelial cells seen. Many polymorphonuclear leukocytes seen. Moderate mixed bacterial heriberto seen on Gram stain. Report Final Report: Moderate growth of: Escherichia coli Light growth normal heriberto (.) [facility] Organism ESCHERICHIA COLI [facility] Tracheal aspirate (Lung) 02/20/2025 6:57 AM CDT 02/20/2025 8:31 AM CDT Narrative Organism Antibiotic Method Susceptibility Escherichia coli Ampicillin with Sulbactam (ZAN) INTER PRETATION Susceptible Escherichia coli Cefazolin (ZAN) INTERPRETATION Susceptible Escherichia coli Ciprofloxacin (ZAN) INTERPRETATION Susceptible Escherichia coli Gentamicin (ZAN) INTERPRETATION Susceptible Escherichia coli Levofloxacin (ZAN) INTERPRETATION Susceptible Escherichia coli Meropenem (ZAN) INTERPRETATION Susceptible Escherichia coli Piperacillin/Tazobactam (ZAN) INTERPR ETATION Susceptible Escherichia coli Trimethoprim with Sulfamethoxazole (ZAN) INTERPRETATION Susceptible Rehana Shipley DO LAB MICROBIOLOGY - GEN ERAL ORDERABLES Final Result Performing Organization Address [facility] Co de Phone Number [facility] [address] [place] [address] * XR Chest 1 View (02/20/2025 4:15 AM CDT) Anatomical Region Laterality Modality Body, Chest N/A Computed Radiogr aphy 02/20/2025 7:56 AM CDT Impressions 02/20/2025 7:56 AM CDT Comparison 02/19/2025 8:47 AM. Endotracheal tube tip approximately 3 cm above the marisela. Gastric tube courses caudal to the diaphragm. Median sternotomy wires are aligned and intact. Left retrocardiac opacification most compatible with partial collapse left lower lobe and small left pleural effusion unchanged. A right basilar opacity represents atelectasis and small posterior layering right pleural effusion, improved. No pneumothorax seen. Cardiac mediastinal silhouette stable. Electronically signed by: Siva Taylor M.D. Narrative 02/20/2025 7:56 AM CDT EXAMINATION: Chest 1 view Procedure Note Siva Taylor MD - 02/20/2025 EXAMINATION: Chest 1 view IMPRESSION: Comparison 02/19/2025 8:47 AM. Endotracheal tube tip approximately 3 cm above the marisela. Gastric tube courses caudal to the diaphragm. Median sternotomy wires are aligned and intact. Left retrocardiac opacification most compatible with partial collapse left lower lobe and small left pleural effusion unchanged. A right basilar opacity represents atelectasis and small posterior layering right pleural effusion, improved. No pneumothorax seen. Cardiac mediastinal silhouette stable. Electronically signed by: Siva Taylor M.D. Rehana Shipley DO IMG XR PROCEDURES Madhavi l Result * (ABNORMAL) eGFR (02/20/2025 3:06 AM CDT) eGFR 40(L) >=60 mL/min/1. 73 m2 Comment: Interpretive Data Reference Interval Normal >/= 90 mL/min/1.73m2 Mildly decreased* 60 - 89 mL/min/1.73m2 Mildly to moderately decreased 45 - 59 mL/min/1.73m2 Moderately to severely decreased 30 - 44 mL/min/1.73m2 Severely decreased 15 - 29 mL/min/1.73m2 Kidney Failure < 15 mL/min/1.73m2 *Relative to young adult level Estimated glomerular filtration rate is determined by the 2020 CKD-EPI equation recommended by the National Kidney Foundation (A Unifying Approach to GFR Estimation: Recommendations of the NKF-ASK Task Force on Reassessing the Inclusion of Race in Diagnosing Kidney Disease, JASN 2020). The CKD-EPI equation should not be used for patients with unstable renal function and has not been validated in children and those over 70. Current interpretive data was last reviewed 2021. Blood 02/20/2025 3:06 AM CDT 02/20/2025 3:30 AM CDT us Rehana Camposrice Violetta DO LAB BLOOD ORDERABLES F inal Result [facility] [address] Department [place] [address] * (ABNORMAL) Differential, auto (02/20/2025 3:06 AM CDT) Neutrophil abs 9.80(H) 1.50 - 6.50 K/cumm Imm gran abs 0.07 0.00 - 0.10 K/cumm [facility] Lymphocyte abs 2.37 0.80 - 3.30 K/cumm [facility] Monocyte abs 1.86(H) 0.20 - 0.80 K/cumm [facility] Eosinophil abs 0.02 0.00 - 0.50 K/cumm [facility] Basophil abs 0.04 0.00 - 0.10 K/cumm [facility] Neutrophil pct 69.3 % [facility] Comment: Interpretive Data Percent cell count reference ranges are not reported, since discordance with absolute values may lead to misinterpretation of CBC data. Current Interpretive Data was last revised on 2018. Imm gran pct 0.5 % [facility] Comment: Interpretive Data Percent cell count reference ranges are not reported, since discordance with absolute values may lead to misinterpretation of CBC data. Current Interpretive Data was last revised on 2018. Lymphocyte pct 16.7 % [facility] Comment: Interpretive Data Percent cell count reference ranges are not reported, since discordance with absolute values may lead to misinterpretation of CBC data. Current Interpretive Data was last revised on 2018. Monocyte pct 13.1 % [facility] Comment: Interpretive Data Percent cell count reference ranges are not reported, since discordance with absolute values may lead to misinterpretation of CBC data. Current Interpretive Data was last revised on 2018. Eosinophil pct 0.1 % [facility] Comment: Interpretive Data Percent cell count reference ranges are not reported, since discordance with absolute values may lead to misinterpretation of CBC data. Current Interpretive Data was last revised on 2018. Basophil pct 0.3 % [facility] Comment: Interpretive Data Percent cell count reference ranges are not reported, since discordance with absolute values may lead to misinterpretation of CBC data. Current Interpretive Data was last revised on 2018. Blood 02/20/2025 3:06 AM CDT 02/20/2025 3:30 AM CDT us Brayden Roach MD LAB BLOOD ORDERABLES Final Result [facility] [address] [place] [address] * (ABNORMAL) CBC with auto differential (02/20/2025 3:06 AM CDT) WBC 14.16(H) 3.80 - 9.90 K/cumm Hgb 12.6(L) 13.0 - 17.5 g/dL [facility] Hct 41.0 38.9 - 50.3 % [facility] Plt 196 150 - 400 K/cumm [facility] MPV 11.0 9.1 - 12.3 fL [facility] RBC 4.32 4.30 - 5.80 M/cumm [facility] MCV 94.9 81.3 - 96.4 fL [facility] MCH 29.2 27.1 - 33.3 pg [facility] MCHC 30.7(L) 32.3 - 35.7 g/dL [facility] RDW CV 15.9(H) 11.1 - 14.9 % [facility] RDW SD 55.6(H) 35.7 - 48.1 fL [facility] NRBC abs 0.00 0.00 - 0.01 K/cumm [facility] Blood 02/20/2025 3:06 AM CDT 02/20/2025 3:30 AM CDT Brayden Roach MD LAB BLOOD ORDERABLES Final Result [facility] [address] [facility] [place] [address] * (ABNORMAL) Phosphorus (02/20/2025 3:06 AM CDT) [facility] Phosphorus, pl 5.0(H) 2.3 - 4.5 mg/dL Blood 02/20/2025 3:06 AM CDT 02/20/2025 3:30 AM CDT Rehana Shipley DO LAB BLOOD ORDERABLES F inal Result Performing Organization Address City/[facility]/ZIP Co de Phone Number [facility] [address] [place] [address] * Magnesium (02/20/2025 3:06 AM CDT) [facility] Magnesium 2.1 1.4 - 2.5 mg/dL Comment:Reviewed Blood 02/20/2025 3:06 AM CDT 02/20/2025 3:30 AM CDT Rehana Shipley DO LAB BLOOD ORDERABLES F inal Result Performing Organization Address City/[facility]/ZIP Co de Phone Number [facility] [address] [place] [address] * (ABNORMAL) Comprehensive metabolic panel (02/20/2025 3:06 AM CDT) [facility] Sodium 144 135 - 145 mmol/L Potassium, pl 3.2(L) 3.3 - 4.9 mmol/L [facility] Chloride 106 97 - 110 mmol/L [facility] CO2 26 22 - 32 mmol/L [facility] Anion gap 12 2 - 15 mmol/L [facility] BUN 34(H) 6 - 25 mg/dL [facility] Creatinine 1.77(H) 0.80 - 1.30 mg/dL [facility] Glucose 186 70 - 199 mg/dL [facility] Comment: Interpretive Data Fasting glucose >/= 126 mg/dl is diagnostic for diabetes. Fasting is defined as no caloric intake for at least 8 hours. Fasting glucose between 100 mg/dl to 125 mg/dl is diagnostic of prediabetes. In a patient with classic symptoms of hyperglycemia or hyperglycemic crisis, a random glucose >/= 200 mg/dl is diagnostic for diabetes. In the absence of unequivocal hyperglycemia, results should be confirmed by repeat testing. The classification and Diagnosis of Diabetes Diabetes Care 2021; 46: S19-S40. Current interpretive data was last revised 2022. Calcium 8.1(L) 8.5 - 10.3 mg/dL [facility] Bilirubin, total 0.3 0.1 - 1.2 mg/dL [facility] Protein, pl 6.1(L) 6.5 - 8.5 g/dL [facility] Albumin 3.0(L) 3.5 - 5.0 g/dL [facility] Alk phos 88 40 - 130 Units/L [facility] ALT 15 7 - 55 Units/L [facility] AST 21 10 - 50 Units/L [facility] Blood 02/20/2025 3:06 AM CDT 02/20/2025 3:30 AM CDT Rehana Shipley DO LAB BLOOD ORDERABLES F inal Result [facility] [address] [place] [address] * POCT glucose (02/19/2025 7:46 PM CDT) [facility] Signature Glucose, POC 165 70 - 199 mg/dL Comment: For Glucose values <35 mg/dl when Hematocrit is >60 mg/dl,the test may not accurately detect significant hypoglycemia,and testing in the Laboratory should be considered if clinically indicated. POC Performer [phone] [facility] Blood 02/19/2025 7:46 PM CDT 02/19/2025 7:46 PM CDT us Rehanamoise Kimbrough eSiliconjerzy Duxter LAB POCT ORDERABLES - DEVICE Final Result Performing Organization Address [facility]/ZIP Co de Phone Number [facility] [address] [place], [place] [id number] * POCT glucose (02/19/2025 5:46 PM CDT) Glucose, POC 177 70 - 199 mg/dL Comment: For Glucose values <35 mg/dl when Hematocrit is >60 mg/dl,the test may not accurately detect significant hypoglycemia,and testing in the Laboratory should be considered if clinically indicated. POC Performer [phone] [facility] Blood 02/19/2025 5:46 PM CDT 02/19/2025 5:46 PM CDT Rehanamoise Kimbrough eSiliconjerzy Duxter LAB POCT ORDERABLES - DEVICE Final Result Performing Organization Address [facility] Co de Phone Number [facility] [address] [place] [address] * (ABNORMAL) eGFR (02/19/2025 3:31 PM CDT) Pathologist [facility] eGFR 47(L) >=60 mL/min/1. 73 m2 Comment: Interpretive Data Reference Interval Normal >/= 90 mL/min/1.73m2 Mildly decreased* 60 - 89 mL/min/1.73m2 Mildly to moderately decreased 45 - 59 mL/min/1.73m2 Moderately to severely decreased 30 - 44 mL/min/1.73m2 Severely decreased 15 - 29 mL/min/1.73m2 Kidney Failure < 15 mL/min/1.73m2 *Relative to young adult level Estimated glomerular filtration rate is determined by the 2020 CKD-EPI equation recommended by the National Kidney Foundation (A Unifying Approach to GFR Estimation: Recommendations of the NKF-ASK Task Force on Reassessing the Inclusion of Race in Diagnosing Kidney Disease, JASN 2020). The CKD-EPI equation should not be used for patients with unstable renal function and has not been validated in children and those over 70. Current interpretive data was last reviewed 2021. Blood 02/19/2025 3:31 PM CDT 02/19/2025 3:52 PM CDT us Rehana Bakermaria isabel Shipley DO LAB BLOOD ORDERABLES F inal Result [facility] [address] [place] [address] * (ABNORMAL) Renal function panel (02/19/2025 3:31 PM CDT) Sodium 149(H) 135 - 145 mmol/L Potassium, pl 4.1 3.3 - 4.9 mmol/L [facility] Comment:Hemolyzed; potassium value may be falsely elevated by as much as 0.6 - 1.0 mmol/L. Suggest redraw and reanalysis Chloride 110 97 - 110 mmol/L [facility] CO2 22 22 - 32 mmol/L [facility] Anion gap 17(H) 2 - 15 mmol/L [facility] BUN 28(H) 6 - 25 mg/dL [facility] Creatinine 1.57(H) 0.80 - 1.30 mg/dL [facility] Glucose 156 70 - 199 mg/dL [facility] Comment: Interpretive Data Fasting glucose >/= 126 mg/dl is diagnostic for diabetes. Fasting is defined as no caloric intake for at least 8 hours. Fasting glucose between 100 mg/dl to 125 mg/dl is diagnostic of prediabetes. In a patient with classic symptoms of hyperglycemia or hyperglycemic crisis, a random glucose >/= 200 mg/dl is diagnostic for diabetes. In the absence of unequivocal hyperglycemia, results should be confirmed by repeat testing. The classification and Diagnosis of Diabetes Diabetes Care 2021; 46: S19-S40. Current interpretive data was last revised 2022. Calcium 8.2(L) 8.5 - 10.3 mg/dL [facility] Phosphorus, pl 5.2(H) 2.3 - 4.5 mg/dL [facility] Albumin 3.2(L) 3.5 - 5.0 g/dL [facility] Blood 02/19/2025 3:31 PM CDT 02/19/2025 3:52 PM CDT us Rehana Shipley DO LAB BLOOD ORDERABLES F inal Result [facility] [address] [place] [address] * TRANSTHORACIC ECHO (TTE) COMPLETE W DOPPLER/CF W CONTRAST (02/19/2025 12:14 PM CDT) Estimated EF 25 % CONS SCIMAGE Anatomical Region Laterality Modality Ultrasound 02/19/2025 7:43 AM CDT Narrative 02/19/2025 12:28 PM CDT [facility] [address] [place] [address] ECHOCARDIOGRAM Patient Name: MAURICIO HEADLEY : 1955 (70y ) Gender: M Study Date: 02/19/2025 07:43:35 AM Ht(Inch): 68 Wt(Lb): 171.96 BSA: 1.93 Help Desk Technician: YUMIKO Location: [id number] Order Provider: KARIN RODRIGUEZ BMI: 26.14 BP: 87/69 Ref Provider: KARIN RODRIGUEZ - PROCEDURES: Echocardiographic Report: Transthoracic Echocardiogram with 2D, M-Mode, Spectral and Color Flow Doppler examination and administration of intravenous contrast. INDICATIONS: Congestive heart failure. MEASUREMENTS: 2D/MM Value Range Doppler Value Range IVSd 2D 1.12 cm [ 0.60 - 1.00 ] AV Peak Sathya 1.26 m/s [ 1.00 - 1.70 ] LVIDd 2D 5.55 cm [ 4.20 - 5.80 ] AV Peak PG 6.4 mmHg LVIDs 2D 4.92 cm [ 2.50 - 4.00 ] AV Mean PG 3.7 mmHg LVPWd 2D 1.63 cm [ 0.60 - 1.00 ] AV VTI 18.4 cm Estimated EF 25 % ELIAS VTI 1.6 cm2 LA Dimension 2D 3.94 cm [ 3.00 - 4.00 ] LVOT Peak Sathya 0.60 m/s [ 0.70 - 1.10 ] AoR Diam 2D 3.27 cm [ 3.10 - 3.70 ] LVOT Diam 2.2 cm AoR Diam 2D Index 1.69 LVOT Peak PG 1.4 mmHg RA Volume 21.00 ml LVOT VTI 7.9 cm TAPSE 0.84 cm [ 1.71 - 5.00 ] MV Peak PG 1.4 mmHg MV Mean PG 0.9 mmHg MV E Peak Sathya 0.4 m/s [ 0.6 - 1.3 ] MV A Peak Sathya 0.4 m/s [ 1.0 - 1.2 ] MV PHT 116.0 ms [ 20.0 - 100.0 ] MV Decel Time 112.5 ms [ 104.0 - 258.0 ] MVA PHT 1.9 ms MV E/A Ratio 1.0 TR Peak Sathya 2.4 m/s [ 1.0 - 2.8 ] TR Peak PG 22 mmHg RVSP 25.1 mmHg [ 10.0 - 36.0 ] RA Pressure 3.0 mmHg PV Peak Sathya 1.0 m/s [ 0.4 - 0.8 ] PV Peak PG 3.7 mmHg Lat E` Sathya 0.06 m/s [ 0.10 - 0.15 ] Sept E' Sathya 0.03 m/s [ 0.08 - 0.15 ] E/E` 6.67 RV S' 0.07 m/s 2D/MM Value Range Doppler Value Range - FINDINGS: Study Quality: Technically difficult study. Contrast was employed for LV opacification and endocardial border enhancement. BP: Blood pressure: 87/69 mmHg. Left Ventricle: Severe left ventricular systolic dysfunction. Ejection Fraction is estimated at 25 %. Normal left ventricular cavity size. Mild concentric left ventricular hypertrophy. Resting Segmental Wall Motion Analysis: Total wall motion score is 2.12. There is dyskinesis of the mid to apical inferoseptal wall. There is dyskinesis of the mid anteroseptal wall. There is akinesis of the apical cap. The entire anterolateral wall demonstrates normal motion. The entire inferolateral wall demonstrates normal motion. The remaining left ventricular segments demonstrate hypokinesis. Right Ventricle: Mild to moderate right ventricular dysfunction. Normal right ventricular size. Left Atrium: There is borderline enlargement of the left atrium. Right Atrium: The right atrium is normal in size. Atrial Septum: Normal appearing atrial septum. Mitral Valve: Normal appearance of the mitral valve leaflets. There is no mitral regurgitation. Aortic Valve: Normal appearance of the aortic valve. Aortic valve appears tricuspid in configuration. There is no aortic stenosis. There is no aortic regurgitation. Tricuspid Valve: Tricuspid valve not well visualized. Trace tricuspid regurgitation. Normal right ventricular systolic pressure. Pulmonic Valve: Grossly normal appearing pulmonic valve. There is no pulmonic stenosis. Pericardium: Moderate pericardial effusion. Findings consistent with elevated intrapericardial pressure without jose tamponade. Aortic Root and Aorta: The sinuses of Valsalva are normal. Aortic Arch: The aortic arch is poorly visualized. IVC: Size and compressability data are discordant suggesting intermediate right atrial pressures. Exam Interpreted: Read by Front Maker Lockstitch of the day to expedite patient care. CONCLUSIONS: 1. Severe left ventricular systolic dysfunction. Ejection Fraction is estimated at 25 %. Normal left ventricular cavity size. Mild concentric left ventricular hypertrophy. 2. Resting Segmental Wall Motion Analysis: Total wall motion score is 2.12. There is dyskinesis of the mid to apical inferoseptal wall. There is dyskinesis of the mid anteroseptal wall. There is akinesis of the apical cap. The entire anterolateral wall demonstrates normal motion. The entire inferolateral wall demonstrates normal motion. The remaining left ventricular segments demonstrate hypokinesis. 3. Mild to moderate right ventricular dysfunction. Normal right ventricular size. 4. Normal appearance of the mitral valve leaflets. There is no mitral regurgitation. 5. Normal appearance of the aortic valve. Aortic valve appears tricuspid in configuration. There is no aortic stenosis. There is no aortic regurgitation. 6. Tricuspid valve not well visualized. Trace tricuspid regurgitation. Normal right ventricular systolic pressure. 7. Grossly normal appearing pulmonic valve. There is no pulmonic stenosis. 8. Moderate pericardial effusion. Findings consistent with elevated intrapericardial pressure without jose tamponade. 9. Size and compressability data are discordant suggesting intermediate right atrial pressures. Electronically Signed By: Hernan Coley MD [facility] 02/19/2025 12:28:06 PM CDT Wall Motion Analysis - Resting Procedure Note Hernan Coley MD - 02/19/2025 [facility] [address] [place] [address] ECHOCARDIOGRAM Patient Name: MAURICIO HEADLEY : 1955 (70y ) Gender: M Study Date: 02/19/2025 07:43:35 AM Ht(Inch): 68 Wt(Lb): 171.96 BSA: 1.93 Help Desk Technician: YUMIKO Location: [address] Order Provider: KARIN RODRIGUEZ BMI: 26.14 BP: 87/69 Ref Provider: KARIN RODRIGUEZ - PROCEDURES: Echocardiographic Report: Transthoracic Echocardiogram with 2D, M-Mode,Spectral and Color Flow Doppler examination and administration of intravenouscontrast. INDICATIONS: Congestive heart failure. MEASUREMENTS: 2D/MM Value Range Doppler ValueRange IVSd 2D 1.12 cm [ 0.60 - 1.00 ] AV Peak Sathya 1.26m/s [ 1.00 - 1.70 ] LVIDd 2D 5.55 cm [ 4.20 - 5.80 ] AV Peak PG 6.4mmHg LVIDs 2D 4.92 cm [ 2.50 - 4.00 ] AV Mean PG 3.7mmHg LVPWd 2D 1.63 cm [ 0.60 - 1.00 ] AV VTI 18.4cm Estimated EF 25 % ELIAS VTI 1.6cm2 LA Dimension 2D 3.94 cm [ 3.00 - 4.00 ] LVOT Peak Sathya 0.60m/s [ 0.70 - 1.10 ] AoR Diam 2D 3.27 cm [ 3.10 - 3.70 ] LVOT Diam 2.2cm AoR Diam 2D Index 1.69 LVOT Peak PG 1.4mmHg RA Volume 21.00 ml LVOT VTI 7.9cm TAPSE 0.84 cm [ 1.71 - 5.00 ] MV Peak PG 1.4mmHg MV Mean PG 0.9 mmHg MV E Peak Sathya 0.4 m/s [ 0.6 - 1.3 ] MV A Peak Sathya 0.4 m/s [ 1.0 - 1.2 ] MV PHT 116.0 ms [ 20.0 - 100.0 ] MV Decel Time 112.5 ms [ 104.0 - 258.0 ] MVA PHT 1.9 ms MV E/A Ratio 1.0 TR Peak Sathya 2.4 m/s [ 1.0 - 2.8 ] TR Peak PG 22 mmHg RVSP 25.1 mmHg [ 10.0 - 36.0 ] RA Pressure 3.0 mmHg PV Peak Sathya 1.0 m/s [ 0.4 - 0.8 ] PV Peak PG 3.7 mmHg Lat E` Sathya 0.06 m/s [ 0.10 - 0.15 ] Sept E' Sathya 0.03 m/s [ 0.08 - 0.15 ] E/E` 6.67 RV S' 0.07 m/s 2D/MM Value Range Doppler ValueRange - FINDINGS: Study Quality: Technically difficult study. Contrast was employed for LVopacification and endocardial border enhancement. BP: Blood pressure: 87/69 mmHg. Left Ventricle: Severe left ventricular systolic dysfunction. EjectionFraction is estimated at 25 %. Normal left ventricular cavity size. Mild concentricleft ventricular hypertrophy. Resting Segmental Wall Motion Analysis: Total wall motion score is 2.12.There is dyskinesis of the mid to apical inferoseptal wall. There is dyskinesis ofthe mid anteroseptal wall. There is akinesis of the apical cap. The entireanterolateral wall demonstrates normal motion. The entire inferolateral wall demonstratesnormal motion. The remaining left ventricular segments demonstrate hypokinesis. Right Ventricle: Mild to moderate right ventricular dysfunction. Normalright ventricular size. Left Atrium: There is borderline enlargement of the left atrium. Right Atrium: The right atrium is normal in size. Atrial Septum: Normal appearing atrial septum. Mitral Valve: Normal appearance of the mitral valve leaflets. There is nomitral regurgitation. Aortic Valve: Normal appearance of the aortic valve. Aortic valve appearstricuspid in configuration. There is no aortic stenosis. There is no aorticregurgitation. Tricuspid Valve: Tricuspid valve not well visualized. Trace tricuspidregurgitation. Normal right ventricular systolic pressure. Pulmonic Valve: Grossly normal appearing pulmonic valve. There is nopulmonic stenosis. Pericardium: Moderate pericardial effusion. Findings consistent withelevated intrapericardial pressure without jose tamponade. Aortic Root and Aorta: The sinuses of Valsalva are normal. Aortic Arch: The aortic arch is poorly visualized. IVC: Size and compressability data are discordant suggesting intermediateright atrial pressures. Exam Interpreted: Read by Front Maker [employer] of the day to expedite patientcare. CONCLUSIONS: 1. Severe left ventricular systolic dysfunction. Ejection Fraction isestimated at 25 %. Normal left ventricular cavity size. Mild concentric left ventricularhypertrophy. 2. Resting Segmental Wall Motion Analysis: Total wall motion score is2.12. There is dyskinesis of the mid to apical inferoseptal wall. There is dyskinesis ofthe mid anteroseptal wall. There is akinesis of the apical cap. The entireanterolateral wall demonstrates normal motion. The entire inferolateral wall demonstratesnormal motion. The remaining left ventricular segments demonstrate hypokinesis. 3. Mild to moderate right ventricular dysfunction. Normal rightventricular size. 4. Normal appearance of the mitral valve leaflets. There is no mitralregurgitation. 5. Normal appearance of the aortic valve. Aortic valve appears tricuspidin configuration. There is no aortic stenosis. There is no aorticregurgitation. 6. Tricuspid valve not well visualized. Trace tricuspid regurgitation.Normal right ventricular systolic pressure. 7. Grossly normal appearing pulmonic valve. There is no pulmonicstenosis. 8. Moderate pericardial effusion. Findings consistent with elevatedintrapericardial pressure without jose tamponade. 9. Size and compressability data are discordant suggesting intermediateright atrial pressures. Electronically Signed By: Hernan Coley MD [facility] 02/19/2025 12:28:06 PM CDT Wall Motion Analysis - Resting Karin Rodriguez MD CV ECHO PROCEDURES Final Res ult * POCT glucose (02/19/2025 11:30 AM CDT) Glucose, POC 140 70 - 199 mg/dL Comment: For Glucose values <35 mg/dl when Hematocrit is >60 mg/dl,the test may not accurately detect significant hypoglycemia,and testing in the Laboratory should be considered if clinically indicated. POC Performer [phone] [facility] Blood 02/19/2025 11:3 0 AM CDT 02/19/2025 11:30 AM CDT Rehana Shipley DO LAB POCT ORDERABLES - DEVICE Final Result Performing Organization Address [facility] Co de Phone Number [facility] [address] [place] [address] * Lactate (02/19/2025 10:51 AM CDT) [facility] Lactate 1.5 0.7 - 2.0 mmol/L Blood 02/19/2025 10:5 1 AM CDT 02/19/2025 10:59 AM CDT Rehana Shipley DO LAB BLOOD ORDERABLES F inal Result Performing Organization Address [facility] Co de Phone Number [facility] [address] [place] [address] * (ABNORMAL) Procalcitonin (02/19/2025 10:51 AM CDT) Procalcitonin 3.00(H) <=0.25 ng/mL Blood 02/19/2025 10:5 1 AM CDT 02/19/2025 11:03 AM CDT Rehana Camposleonardo Shipley DO LAB BLOOD ORDERABLES F inal Result [facility] [address] Department [place] [address] * Respiratory pathogen panel Nasopharyngeal (02/19/2025 10:51 AM CDT) Influenza A RNA Not Detected Not Detected [facility] Influenza B RNA Not Detected Not Detected [facility] RSV RNA Not Detected Not Detected [facility] COVID-19 RNA Not Detected Not Detected [facility] Coronavirus 229E RNA Not Detected Not Detected [facility] Coronavirus HKU1 RNA Not Detected Not Detected [facility] Coronavirus NL63 RNA Not Detected Not Detected [facility] Coronavirus OC43 RNA Not Detected Not Detected [facility] Adenovirus DNA Not Detected Not Detected [facility] Metapneumovirus RNA Not Detected Not Detected [facility] Rhinovirus/Enterov irus RNA Not Detected Not Detected [facility] Parainfluenza 1 RNA Not Detected Not Detected [facility] Parainfluenza 2 RNA Not Detected Not Detected [facility] Parainfluenza 3 RNA Not Detected Not Detected [facility] Parainfluenza 4 RNA Not Detected Not Detected [facility] B. pertussis DNA Not Detected Not Detected [facility] B. parapertussis DNA Not Detected Not Detected [facility] C. pneumoniae DNA Not Detected Not Detected [facility] M. pneumoniae DNA Not Detected Not Detected [facility] Comment: Interpretive Data The [employer] FilmArray Respiratory Panel (RP2.1) assay is a multiplexed real-time PCR based nucleic acid test capable of simultaneous qualitative detection and identification of multiple respiratory viral and bacterial nucleic acids, including SARS Coronavirus 2 (the causative agent of COVID-19). The following bacteria, viruses and virus subtypes can be identified using the FilmArray RP2.1 assay: Bordetella pertussis, Bordetella parapertussis, Chlamydia pneumoniae, Mycoplasma pneumoniae, Adenovirus, SARS Coronavirus 2, seasonal coronaviruses (Coronavirus HKU1, Coronavirus NL63, Coronavirus 229E, and Coronavirus OC43), Influenza A, Influenza A subtype H1, Influenza A subtype H3, Influenza A subtype 2009 H1, Influenza B, Metapneumovirus, Parainfluenza 1, Parainfluenza 2, Parainfluenza 3, Parainfluenza 4, RSV, Rhinovirus/Enterovirus. Due to the genetic similarity between human Rhinovirus and Enterovirus, the FilmArray RP2.1 assay cannot reliably differentiate them. Coronavirus OC43 may cross-react with some isolates of Coronavirus HKU1. A dual positive result may be due to cross-reactivity or may indicate a co- infection. The detection and identification of specific viral and bacterial nucleic acids from individuals exhibiting signs and symptoms of a respiratory infection aids in the diagnosis of respiratory infection if used in conjunction with other clinical and epidemiological information. The results of this test should not be used as the sole basis for diagnosis, treatment, or other management decisions. Negative results in the setting of a respiratory illness may be due to infection with pathogens that are not detected by this test. Positive results do not rule out infection/co-infection with other organisms. The agent(s) detected by the FilmArray RP2.1 may not be the definite cause of disease. Additional testing (lab, imaging, etc.) may be necessary when evaluating a patient with possible respiratory tract infection. The FilmArray RP2.1 assay has FDA clearance for testing of PHOTOENGRAVING ETCHER APPRENTICE swabs. The performance characteristics of this assay have been determined by [facility]. Current interpretive data was last revised on 2021. Nasopharyngeal 02/19/2025 10 :51 AM CDT 02/19/2025 11:04 AM CDT Narrative [facility] - 02/19/2025 11:56 AM CDT Is the Patient experiencing symptoms consistent with COVID?->Unknown Surveillance testing for transplant patient?->No Rehana Shipley DO LAB MICROBIOLOGY - GEN ERAL ORDERABLES Final Result [facility] [address] [place] [address] [facility] * MRSA Only (Staphylococcus aureus) PCR Nasal (02/19/2025 10:51 AM CDT) [facility] PCR Scrn, Methicillin resistant Staphylococcus aureus (MRSA) Not Detected Not Detected Comment: Interpretive Data Testing performed using Nucleic Acid Amplification with the [employer] Xpert MRSA NxG Assay. This assay detects target DNA from mecA, mecC and the SCCmec insertion site of Staphylococcus aureus using Real-Time PCR and has been cleared by the FDA. Performance characteristics have been verified by the [facility]. Current Interpretive Data was last revised on 2023 Nasal 02/19/2025 10:5 1 AM CDT 02/19/2025 11:04 AM CDT Rehana Shipley DO LAB MICROBIOLOGY - GEN ERAL ORDERABLES Final Result Performing Organization Address City/[facility]/ZIP Co de Phone Number [facility] [address] [facility] [place] [address] * Magnesium - Add on lab test (02/19/2025 10:06 AM CDT) Acceptable Yes Blood 02/19/2025 10:0 6 AM CDT 02/19/2025 10:06 AM CDT Narrative [facility] - 02/19/2025 10:07 AM CDT Name of Test->Magnesium Rehana Shipley DO LAB BLOOD ORDERABLES F inal Result Performing Organization Address [facility] Co de Phone Number [facility] [address] [place] [address] * Phosphorus - Add on lab test (02/19/2025 10:06 AM CDT) Acceptable Yes Blood 02/19/2025 10:0 6 AM CDT 02/19/2025 10:06 AM CDT Narrative [facility] 02/19/2025 10:07 AM CDT Name of Test->Phosphorus Rehana Shipley DO LAB BLOOD ORDERABLES F inal Result Performing Organization Address City/[facility]/ZIP Co de Phone Number [facility] [address] [place] [address] * POCT glucose (02/19/2025 9:37 AM CDT) Glucose, POC 130 70 - 199 mg/dL Comment: For Glucose values <35 mg/dl when Hematocrit is >60 mg/dl,the test may not accurately detect significant hypoglycemia,and testing in the Laboratory should be considered if clinically indicated. POC Performer [phone] [facility] Blood 02/19/2025 9:37 AM CDT 02/19/2025 9:37 AM CDT us Rehana Shipley DO LAB POCT ORDERABLES - DEVICE Final Result [facility] [address] Department [place] [address] * XR Chest 1 View (02/19/2025 8:50 AM CDT) Anatomical Region Laterality Modality Body, Chest N/A Computed Radiogr aphy 02/19/2025 9:00 AM CDT Impressions 02/19/2025 9:00 AM CDT Comparison is made a prior study performed yesterday. Endotracheal and nasogastric tubes remain in place, position unchanged. Retrocardiac opacification likely represents a combination of small left pleural effusion and atelectasis. Right lung base atelectasis is again seen as well. No definite pulmonary edema. No pneumothorax or right pleural effusion. Surgical changes from median sternotomy are again seen. Electronically signed by: Munir Rojas M.D. Narrative 02/19/2025 9:00 AM CDT EXAMINATION: 1 view chest radiograph Procedure Note Munir Rojas MD - 02/19/2025 EXAMINATION: 1 view chest radiograph IMPRESSION: Comparison is made a prior study performed yesterday. Endotracheal and nasogastric tubes remain in place, position unchanged. Retrocardiac opacification likely represents a combination of small left pleural effusion and atelectasis. Right lung base atelectasis is again seen as well. No definite pulmonary edema. No pneumothorax or right pleural effusion. Surgical changes from median sternotomy are again seen. Electronically signed by: Munir Rojas M.D. us Rehana Shipley DO IMG XR PROCEDURES Madhavi l Result * (ABNORMAL) eGFR (02/19/2025 3:11 AM CDT) eGFR 52(L) >=60 mL/min/1. 73 m2 Comment: Interpretive Data Reference Interval Normal >/= 90 mL/min/1.73m2 Mildly decreased* 60 - 89 mL/min/1.73m2 Mildly to moderately decreased 45 - 59 mL/min/1.73m2 Moderately to severely decreased 30 - 44 mL/min/1.73m2 Severely decreased 15 - 29 mL/min/1.73m2 Kidney Failure < 15 mL/min/1.73m2 *Relative to young adult level Estimated glomerular filtration rate is determined by the 2020 CKD-EPI equation recommended by the National Kidney Foundation (A Unifying Approach to GFR Estimation: Recommendations of the NKF-ASK Task Force on Reassessing the Inclusion of Race in Diagnosing Kidney Disease, JASN 2020). The CKD-EPI equation should not be used for patients with unstable renal function and has not been validated in children and those over 70. Current interpretive data was last reviewed 2021. Blood 02/19/2025 3:11 AM CDT 02/19/2025 3:34 AM CDT Karin Rodriguez MD LAB BLOOD ORDERABLES Final R esult [facility] [address] [place] [address] * (ABNORMAL) CBC without differential (02/19/2025 3:11 AM CDT) Pathologist [facility] WBC 14.88(H) 3.80 - 9.90 K/cumm Hgb 13.7 13.0 - 17.5 g/dL [facility] Hct 44.7 38.9 - 50.3 % [facility] Plt 235 150 - 400 K/cumm [facility] MPV 11.0 9.1 - 12.3 fL [facility] RBC 4.73 4.30 - 5.80 M/cumm [facility] MCV 94.5 81.3 - 96.4 fL [facility] MCH 29.0 27.1 - 33.3 pg [facility] MCHC 30.6(L) 32.3 - 35.7 g/dL [facility] RDW CV 15.9(H) 11.1 - 14.9 % [facility] RDW SD 55.0(H) 35.7 - 48.1 fL [facility] NRBC abs 0.00 0.00 - 0.01 K/cumm [facility] Blood 02/19/2025 3:11 AM CDT 02/19/2025 3:35 AM CDT Karin Rodriguez MD LAB BLOOD ORDERABLES Final R esult [facility] [address] [place] [address] * (ABNORMAL) Phosphorus (02/19/2025 3:11 AM CDT) Phosphorus, pl 5.5(H) 2.3 - 4.5 mg/dL Blood 02/19/2025 3:11 AM CDT 02/19/2025 3:34 AM CDT Rehana Shipley DO LAB BLOOD ORDERABLES F inal Result [facility] [address] [place] [address] * (ABNORMAL) Magnesium (02/19/2025 3:11 AM CDT) Magnesium 2.9(H) 1.4 - 2.5 mg/dL Comment:Reviewed Blood 02/19/2025 3:11 AM CDT 02/19/2025 3:34 AM CDT Rehana Kimbrough Violetta OSULLIVAN LAB BLOOD ORDERABLES F inal Result Performing Organization Address City/[facility]/ZIP Co de Phone Number [facility] [address] [place] [address] * (ABNORMAL) Basic metabolic panel (02/19/2025 3:11 AM CDT) Sodium 149(H) 135 - 145 mmol/L Potassium, pl 3.6 3.3 - 4.9 mmol/L [facility] Chloride 109 97 - 110 mmol/L [facility] CO2 23 22 - 32 mmol/L [facility] Anion gap 17(H) 2 - 15 mmol/L [facility] BUN 25 6 - 25 mg/dL [facility] Creatinine 1.43(H) 0.80 - 1.30 mg/dL [facility] Glucose 151 70 - 199 mg/dL [facility] Comment: Interpretive Data Fasting glucose >/= 126 mg/dl is diagnostic for diabetes. Fasting is defined as no caloric intake for at least 8 hours. Fasting glucose between 100 mg/dl to 125 mg/dl is diagnostic of prediabetes. In a patient with classic symptoms of hyperglycemia or hyperglycemic crisis, a random glucose >/= 200 mg/dl is diagnostic for diabetes. In the absence of unequivocal hyperglycemia, results should be confirmed by repeat testing. The classification and Diagnosis of Diabetes Diabetes Care 2021; 46: S19-S40. Current interpretive data was last revised 2022. Calcium 8.0(L) 8.5 - 10.3 mg/dL [facility] Blood 02/19/2025 3:11 AM CDT 02/19/2025 3:34 AM CDT Karin Rodriguez MD LAB BLOOD ORDERABLES Final R esult Performing Organization Address [facility]/ZIP Co de Phone Number [facility] [address] [place] [address] * (ABNORMAL) Urinalysis reflex to microscopic and culture Urine (02/18/2025 11:51 PM CDT) Color, ur Yellow Yellow Clarity, ur Clear Clear [facility] Specific gravity, ur 1.029 1.003 - 1.030 [facility] pH, urine 5.5 [facility] Comment: Interpretive Data U rine pH is affected by diet, medications, systemic acid-base disturbances, and renal tubular function. pH may affect urinary stone formation. For example, urine pH below 6.0 may help reduce the tendency for calcium phosphate stones and pH greater than 6.0 may reduce the tendency for uric acid stone formation. Source: [facility] Current Interpretive Data was last revised on 2017 Protein, ur ql Trace Negative [facility] Glucose, ur ql 2+(A) Negative [facility] Ketones, ur Negative Negative [facility] Bilirubin, ur Negative Negative [facility] Blood, ur Trace(A) Negative [facility] Urobilinogen, ur <2.0 <2.0 mg/dL [facility] Nitrite, ur Negative Negative [facility] Leukocyte esterase, ur Negative Negative [facility] UA reflex comment Reflex to microscopic UA will be performed. [facility] Urine 02/18/2025 11:5 1 PM CDT 02/19/2025 12:08 AM CDT Karin Rodriguez MD LAB MICROBIOLOGY - GENERAL O RDERABLES Final Result [facility] [address] [place] [address] * (ABNORMAL) Urinalysis, microscopic only (02/18/2025 11:51 PM CDT) WBC, ur 0-5 0 - 5 /HPF RBC, ur 0-2 0 - 2 /HPF [facility] Mucous, ur Present(A) [facility] Culture Reflex Comment Reflex conditions for urine culture (WBC >10) not met. [facility] Urine 02/18/2025 11:5 1 PM CDT 02/19/2025 12:08 AM CDT Karin Rodriguez MD LAB URINE ORDERABLES Final R esult Performing Organization Address [facility] Co de Phone Number [facility] [address] [facility] [employer] [place], [place] [id number] * POCT glucose (02/18/2025 11:43 PM CDT) Glucose, POC 135 70 - 199 mg/dL Comment: For Glucose values <35 mg/dl when Hematocrit is >60 mg/dl,the test may not accurately detect significant hypoglycemia,and testing in the Laboratory should be considered if clinically indicated. POC Performer [phone] [facility] Blood 02/18/2025 11:4 3 PM CDT 02/18/2025 11:43 PM CDT Rehana Shipley DO [facility] POCT ORDERABLES - DEVICE Final Result Performing Organization Address [facility] Co de Phone Number [facility] [address] [place] [place] [address] * POCT glucose (02/18/2025 9:12 PM CDT) Glucose, POC 122 70 - 199 mg/dL Comment: For Glucose values <35 mg/dl when Hematocrit is >60 mg/dl,the test may not accurately detect significant hypoglycemia,and testing in the Laboratory should be considered if clinically indicated. POC Performer [phone] [facility] Blood 02/18/2025 9:12 PM CDT 02/18/2025 9:12 PM CDT Rehana Shipley DO LAB POCT ORDERABLES - DEVICE Final Result Performing Organization Address [facility] Co de Phone Number [facility] [address] Department [place], [place] [id number] * (ABNORMAL) eGFR (02/18/2025 9:01 PM CDT) eGFR 56(L) >=60 mL/min/1. 73 m2 Comment: Interpretive Data Reference Interval Normal >/= 90 mL/min/1.73m2 Mildly decreased* 60 - 89 mL/min/1.73m2 Mildly to moderately decreased 45 - 59 mL/min/1.73m2 Moderately to severely decreased 30 - 44 mL/min/1.73m2 Severely decreased 15 - 29 mL/min/1.73m2 Kidney Failure < 15 mL/min/1.73m2 *Relative to young adult level Estimated glomerular filtration rate is determined by the 2020 CKD-EPI equation recommended by the National Kidney Foundation (A Unifying Approach to GFR Estimation: Recommendations of the NKF-ASK Task Force on Reassessing the Inclusion of Race in Diagnosing Kidney Disease, JASN 2020). The CKD-EPI equation should not be used for patients with unstable renal function and has not been validated in children and those over 70. Current interpretive data was last reviewed 2021. Blood 02/18/2025 9:01 PM CDT 02/18/2025 9:32 PM CDT us Karin Rodriguez MD LAB BLOOD ORDERABLES Final R esult [facility] [address] [place] [address] * (ABNORMAL) Pro B-type natriuretic peptide (02/18/2025 9:01 PM CDT) NT-proBNP 14,237(H) <=300 pg/mL Comment: Interpretive Comments: A. Dyspnea in Acute Care Setting All Ages: < 300 pg/ml, acute heart failure unlikely. < 50 yrs: 300 - 450 pg/ml, further investigation warranted. > 450 pg/ml, acute heart failure likely. 50 - 74 yrs: 300 - 900 pg/ml, further investigation warranted. > 900 pg/ml, acute heart failure likely . > or = 75 yrs: 450 - 1800 pg/ml, further investigation warranted. > 1800 pg/ml, acute heart failure likely. B. Non-acute Setting < 75 yrs < 125 pg/ml, rules out heart failure. > or = 125 pg/ml, further investigation warranted. > or = 75 yrs < 450 pg/ml, rules out heart failure. > or = 450 pg/ml, further investigation warranted. - Knowledge of each individual patient's NT-proBNP range may be more useful than using similar cut-points for every patient. Please note that marked elevations in NT-proBNP levels may be observed in state other than Left Ventricular Congestive Failure, including: acute coronary syndromes, right heart strain/failure (including pulmonary embolism and cor pulmonale), critical illness, renal failure, as well as advanced age. - References: 1. Dawson OROURKE et.al. Eur Heart J. 2006:27:330-337. 2. Uche RW, Gabriella LEUNG. J. AM Jacque Cardiol: Cardiovasc Imag. 2009;2: 216- 225. Interpretive Data Last Revised Date: 2018. Blood 02/18/2025 9:01 PM CDT 02/18/2025 9:32 PM CDT Karin Rodriguez MD LAB BLOOD ORDERABLES Final R esult [facility] [address] [place] [address] * (ABNORMAL) CBC without differential (02/18/2025 9:01 PM CDT) WBC 17.15(H) 3.80 - 9.90 K/cumm Hgb 14.5 13.0 - 17.5 g/dL [facility] Hct 47.7 38.9 - 50.3 % [facility] Plt 246 150 - 400 K/cumm [facility] MPV 11.1 9.1 - 12.3 fL [facility] RBC 5.01 4.30 - 5.80 M/cumm [facility] MCV 95.2 81.3 - 96.4 fL [facility] MCH 28.9 27.1 - 33.3 pg [facility] MCHC 30.4(L) 32.3 - 35.7 g/dL [facility] RDW CV 15.7(H) 11.1 - 14.9 % [facility] RDW SD 54.9(H) 35.7 - 48.1 fL [facility] NRBC abs 0.00 0.00 - 0.01 K/cumm [facility] Blood 02/18/2025 9:01 PM CDT 02/18/2025 9:33 PM CDT Karin Rodriguez MD LAB BLOOD ORDERABLES Final R esult Performing Organization Address City/[facility]/ZIP Co de Phone Number [facility] [address] [place] [place] [address] * (ABNORMAL) Triglycerides (02/18/2025 9:01 PM CDT) Triglycerides 150(H) <=149 mg/dL Comment: Interpretive Data Ages < or = 9 years Acceptable: <75 mg/dL Borderline high: 75-99 mg/dL High: >or= 100 mg/dL Ages 10 to 20 years Acceptable: <90 mg/dL Borderline high: 90-129 mg/dL High: >or= 130 mg/dL Ages > or = 20 years Desirable: <150 mg/dL Borderline high: 150-199 mg/dL High: 200-499 mg/dL Very high: >or= 499 mg/dL Literature References: 1. Expert Panel on Integrated Guidelines for Cardiovascular Health and Risk Reduction in Children and Adolescents. Pediatrics 2011;128:S213 2. NCEP Expert Panel. Circulation 2004;110:227 Current Interpretive Data was last revised on 2018. Blood 02/18/2025 9:01 PM CDT 02/18/2025 9:01 PM CDT us Rehana Shipley DO LAB BLOOD ORDERABLES F inal Result Performing Organization Address City/[facility]/ZIP Co de Phone Number [facility] [address] [place] [place] [address] * (ABNORMAL) Phosphorus (02/18/2025 9:01 PM CDT) Phosphorus, pl 5.0(H) 2.3 - 4.5 mg/dL Blood 02/18/2025 9:01 PM CDT 02/18/2025 9:32 PM CDT Karin Rodriguez MD LAB BLOOD ORDERABLES Final R esult Performing Organization Address City/[facility]/ZIP Co de Phone Number [facility] [address] [facility] [place] [address] * Magnesium (02/18/2025 9:01 PM CDT) [facility] Magnesium 2.2 1.4 - 2.5 mg/dL Blood 02/18/2025 9:01 PM CDT 02/18/2025 9:32 PM CDT Karin Rodriguez MD LAB BLOOD ORDERABLES Final R esult Performing Organization Address [facility] de Phone Number [facility] [address] [place] [address] * (ABNORMAL) Comprehensive metabolic panel (02/18/2025 9:01 PM CDT) Pathologist [facility] Sodium 149(H) 135 - 145 mmol/L Potassium, pl 3.7 3.3 - 4.9 mmol/L [facility] Chloride 110 97 - 110 mmol/L [facility] CO2 22 22 - 32 mmol/L [facility] Anion gap 17(H) 2 - 15 mmol/L [facility] BUN 23 6 - 25 mg/dL [facility] Creatinine 1.34(H) 0.80 - 1.30 mg/dL [facility] Glucose 107 70 - 199 mg/dL [facility] Comment: Interpretive Data Fasting glucose >/= 126 mg/dl is diagnostic for diabetes. Fasting is defined as no caloric intake for at least 8 hours. Fasting glucose between 100 mg/dl to 125 mg/dl is diagnostic of prediabetes. In a patient with classic symptoms of hyperglycemia or hyperglycemic crisis, a random glucose >/= 200 mg/dl is diagnostic for diabetes. In the absence of unequivocal hyperglycemia, results should be confirmed by repeat testing. The classification and Diagnosis of Diabetes Diabetes Care 202; 46: S19-S40. Current interpretive data was last revised 2022. Calcium 8.3(L) 8.5 - 10.3 mg/dL [facility] Bilirubin, total 0.3 0.1 - 1.2 mg/dL [facility] Protein, pl 6.5 6.5 - 8.5 g/dL [facility] Albumin 3.2(L) 3.5 - 5.0 g/dL [facility] Alk phos 116 40 - 130 Units/L [facility] ALT 24 7 - 55 Units/L [facility] AST 48 10 - 50 Units/L [facility] Blood 02/18/2025 9:01 PM CDT 02/18/2025 9:32 PM CDT Karin Rodriguez MD LAB BLOOD ORDERABLES Final R esult Performing Organization Address [facility] Co de Phone Number [facility] [address] [place] [address] * (ABNORMAL) Lactate (02/18/2025 9:00 PM CDT) Pathologist [facility] Lactate 2.1(H) 0.7 - 2.0 mmol/L Blood 02/18/2025 9:00 PM CDT 02/18/2025 9:05 PM CDT Karin Rodriguez MD LAB BLOOD ORDERABLES Final R esult Performing Organization Address City/[facility]/ZIP Co de Phone Number [facility] [address] [place] [address] * aPTT (02/18/2025 9:00 PM CDT) aPTT 31 28 - 38 sec Comment: Interpretive Data Heparin therapeutic range: 66.0 - 100.0 seconds. Range based on correlation with therapeutic heparin activity range of 0.3 - 0.7 Units/mL. Current interpretive data was last revised on 2023. Blood 02/18/2025 9:00 PM CDT 02/18/2025 9:32 PM CDT us Karin Rodriguez MD LAB BLOOD ORDERABLES Final R esult [facility] [address] [place] [address] * (ABNORMAL) Protime-INR (02/18/2025 9:00 PM CDT) PT 13.1(H) 9.7 - 13.0 sec INR 1.21(H) 0.90 - 1.20 [facility] Comment: Interpretive data Oral anticoagulant therapeutic ranges: Venous thromboembolism prophylaxis or treatment: 2.0-3.0 CARDIOLOGY Standard range: 2.0-3.0 High-intensity range: 2.5-3.5 Refer to indication-specific guidelines for appropriate target ranges for prosthetic heart valve replacement. Current interpretive data was last revised on 2019. Blood 02/18/2025 9:00 PM CDT 02/18/2025 9:32 PM CDT us Karin Rodriguez MD LAB BLOOD ORDERABLES Final R esult [facility] [address] [place] [address] * Blood gas, arterial (02/18/2025 8:34 PM CDT) pH, Art 7.42 7.35 - 7.45 PCO2, Arterial 36 35 - 45 mmHg [facility] PO2, Arterial 86 83 - 108 mmHg [facility] HCO3 Art (Calculated) 23 20 - 30 mmol/L [facility] BE, art -1 mmol/L [facility] Comment: Interpretive Data No Reference Range Established Current Interpretive Data was last revised on 2017 O2 Sat Art (Calculated) 97 94 - 98 % [facility] Blood 02/18/2025 8:34 PM CDT 02/18/2025 8:39 PM CDT us Karin Rodriguez MD LAB BLOOD ORDERABLES Final R esult [facility] [address] [place] [address] * X-ray chest 1 view (02/18/2025 8:15 PM CDT) Anatomical Region Laterality Modality Body, Chest N/A Computed Radiogr aphy 02/19/2025 9:45 AM CDT Impressions 02/19/2025 9:55 AM CDT Comparison is made to the chest radiograph dated 01/21/2025. The patient is rotated to the left. Endotracheal tube tip approximately 2.5 cm above the marisela. Gastric tube courses caudal to the diaphragm and inferior to the field of view. Volume loss of the left hemithorax and findings of left lower lobe collapse. Small bilateral pleural effusions, left greater than right. Diffuse interstitial opacities, compatible with mild pulmonary edema. No pneumothorax. Cardiomegaly. Median sternotomy wires and changes of coronary artery bypass grafting. Dictated by: Alexsander Silva MD The radiology attending physician has personally reviewed this study, and had reviewed and/or edited this written report and agrees with it. Electronically signed by: Munir Rojas M.D. Narrative 02/19/2025 9:55 AM CDT EXAMINATION: 1 view chest radiograph Procedure Note Munir Rojas MD - 02/19/2025 EXAMINATION: 1 view chest radiograph IMPRESSION: Comparison is made to the chest radiograph dated 01/21/2025. The patient is rotated to the left. Endotracheal tube tip approximately 2.5 cm above the marisela. Gastric tube courses caudal to the diaphragm and inferior to the field of view. Volume loss of the left hemithorax and findings of left lower lobe collapse. Small bilateral pleural effusions, left greater than right. Diffuse interstitial opacities, compatible with mild pulmonary edema. No pneumothorax. Cardiomegaly. Median sternotomy wires and changes of coronary artery bypass grafting. Dictated by: Alexsander Silva MD The radiology attending physician has personally reviewed this study, and had reviewed and/or edited this written report and agrees with it. Electronically signed by: Munir Rojas M.D. us Karin Rodriguez MD IMG XR PROCEDURES Final Resu lt * MCT Mobile Cardiac Telemetry Event Monitor (01/25/2025 3:37 PM CDT) Anatomical Region Laterality Modality Electrocardiogra phy 02/23/2025 11:5 9 PM CDT Narrative 02/27/2025 12:47 PM CDT [facility] [address] [place] [address] Event MONITOR Patient Name: MAURICIO HEADLEY C : 1955 (70y ) Gender: M Study Date: 02/23/2025 11:59:00 PM Ht(Inch): Wt(Lb): BSA: Tech: Order Provider: BELLA CAMPOVERDE BMI: Ref Provider: BELLA CAMPOVERDE PROCEDURES: Event Monitor Report: Event Monitor. INDICATIONS: I48.0 Paroxysmal atrial fibrillation. FINDINGS: Protocol: Total QRS: 0 Date Recorded: 2025-02-23 23:59:00 Date Processed: 2025-02-23 23:59:00 Study Quality: Study quality is fair. Interpretation: This event monitor demonstrates a predominance of sinus rhythm. The overall heart rate varied from 53-131 beats per minute with an average pulse of 72 beats per minute. No episodes of atrial fibrillation, atrial flutter, SVT, sustained ventricular arrhythmias, high-degree AV block or prolonged pauses were documented. The PVC frequency was less than 1%; the PAC frequency was 1%. A 9 beat burst of nonsustained ventricular tachycardia was documented. No symptoms were listed. CONCLUSIONS: 1. Sinus rhythm. 2. No sustained arrhythmias. Electronically Signed By: Jb Henning MD [facility] 02/27/2025 12:46:23 PM CDT Procedure Note Jb Henning MD - 02/27/2025 [facility] [address] [place] [address] Event MONITOR Patient Name: MAURICIO HEADLEY C : 1955 (70y ) Gender: M Study Date: 02/23/2025 11:59:00 PM Ht(Inch): Wt(Lb): BSA: Tech: Order Provider: BELLA CAMPOVERDE BMI: Ref Provider: BELLA CAMPOVERDE PROCEDURES: Event Monitor Report: Event Monitor. INDICATIONS: I48.0 Paroxysmal atrial fibrillation. FINDINGS: Protocol: Total QRS: 0 Date Recorded: 2025-02-23 23:59:00 Date Processed: 2025-02-23 23:59:00 Study Quality: Study quality is fair. Interpretation: This event monitor demonstrates a predominance of sinusrhythm. The overall heart rate varied from 53-131 beats per minute with an averagepulse of 72 beats per minute. No episodes of atrial fibrillation, atrial flutter, SVT,sustained ventricular arrhythmias, high-degree AV block or prolonged pauses weredocumented. The PVC frequency was less than 1%; the PAC frequency was 1%. A 9 beat burstof nonsustained ventricular tachycardia was documented. No symptoms were listed. CONCLUSIONS: 1. Sinus rhythm. 2. No sustained arrhythmias. Electronically Signed By: Jb Henning MD [facility] 02/27/2025 12:46:23 PM CDT Bella MCGUIRE CV CARDIAC SERVICES PROCEDUR ES Final Result * POCT glucose (01/25/2025 7:47 AM CDT) Glucose, POC 116 70 - 199 mg/dL Comment: For Glucose values <35 mg/dl when Hematocrit is >60 mg/dl,the test may not accurately detect significant hypoglycemia,and testing in the Laboratory should be considered if clinically indicated. POC Performer [phone] [facility] Blood 01/25/2025 7:47 AM CDT 01/25/2025 7:47 AM CDT Brayden Hopkins MD LAB POCT ORDERABLES - KATE CE Final Result [facility] [address] [place] [address] * eGFR (01/25/2025 1:44 AM CDT) eGFR 86 >=60 mL/min/1. 73 m2 Comment: Interpretive Data Reference Interval Normal >/= 90 mL/min/1.73m2 Mildly decreased* 60 - 89 mL/min/1.73m2 Mildly to moderately decreased 45 - 59 mL/min/1.73m2 Moderately to severely decreased 30 - 44 mL/min/1.73m2 Severely decreased 15 - 29 mL/min/1.73m2 Kidney Failure < 15 mL/min/1.73m2 *Relative to young adult level Estimated glomerular filtration rate is determined by the 2020 CKD-EPI equation recommended by the National Kidney Foundation (A Unifying Approach to GFR Estimation: Recommendations of the NKF-ASK Task Force on Reassessing the Inclusion of Race in Diagnosing Kidney Disease, JASN 2020). The CKD-EPI equation should not be used for patients with unstable renal function and has not been validated in children and those over 70. Current interpretive data was last reviewed 2021. Blood 01/25/2025 1:44 AM CDT 01/25/2025 2:35 AM CDT Desire Regina Tonsor PHOTOENGRAVING ETCHER APPRENTICE LAB BLOOD ORDERABLES Fin al Result Performing Organization Address [facility] de Phone Number [facility] [address] [place] [address] * (ABNORMAL) CBC without differential (01/25/2025 1:44 AM CDT) Pathologist [facility] WBC 13.28(H) 3.80 - 9.90 K/cumm Hgb 10.1(L) 13.0 - 17.5 g/dL [facility] Hct 31.9(L) 38.9 - 50.3 % [facility] Plt 318 150 - 400 K/cumm [facility] MPV 12.0 9.1 - 12.3 fL [facility] RBC 3.44(L) 4.30 - 5.80 M/cumm [facility] MCV 92.7 81.3 - 96.4 fL [facility] MCH 29.4 27.1 - 33.3 pg [facility] MCHC 31.7(L) 32.3 - 35.7 g/dL [facility] RDW CV 17.4(H) 11.1 - 14.9 % [facility] RDW SD 57.3(H) 35.7 - 48.1 fL [facility] NRBC abs 0.00 0.00 - 0.01 K/cumm [facility] Blood 01/25/2025 1:44 AM CDT 01/25/2025 2:35 AM CDT Desire Harrellor PHOTOENGRAVING ETCHER APPRENTICE LAB BLOOD ORDERABLES Fin al Result Performing Organization Address [facility] Co de Phone Number [facility] [address] [place] [address] * Phosphorus (01/25/2025 1:44 AM CDT) Pathologist [facility] Phosphorus, pl 4.2 2.3 - 4.5 mg/dL Blood 01/25/2025 1:44 AM CDT 01/25/2025 2:35 AM CDT Desire Ghotra PHOTOENGRAVING ETCHER APPRENTICE LAB BLOOD ORDERABLES Dean francy Result - Final [facility] [address] [place] [address] * (ABNORMAL) Basic metabolic panel (01/25/2025 1:44 AM CDT) Pathologist [facility] Sodium 142 135 - 145 mmol/L Potassium, pl 3.7 3.3 - 4.9 mmol/L [facility] Chloride 106 97 - 110 mmol/L [facility] CO2 24 22 - 32 mmol/L [facility] Anion gap 12 2 - 15 mmol/L [facility] BUN 16 6 - 25 mg/dL [facility] Creatinine 0.95 0.80 - 1.30 mg/dL [facility] Glucose 123 70 - 199 mg/dL [facility] Comment: Interpretive Data Fasting glucose >/= 126 mg/dl is diagnostic for diabetes. Fasting is defined as no caloric intake for at least 8 hours. Fasting glucose between 100 mg/dl to 125 mg/dl is diagnostic of prediabetes. In a patient with classic symptoms of hyperglycemia or hyperglycemic crisis, a random glucose >/= 200 mg/dl is diagnostic for diabetes. In the absence of unequivocal hyperglycemia, results should be confirmed by repeat testing. The classification and Diagnosis of Diabetes Diabetes Care 2021; 46: S19-S40. Current interpretive data was last revised 2022. Calcium 7.9(L) 8.5 - 10.3 mg/dL [facility] Blood 01/25/2025 1:44 AM CDT 01/25/2025 2:35 AM CDT Desire Ghotra PHOTOENGRAVING ETCHER APPRENTICE LAB BLOOD ORDERABLES Dean francy Result - Final [facility] [address] [place] [address] * POCT glucose (01/24/2025 8:21 PM CDT) Glucose, POC 143 70 - 199 mg/dL Comment: For Glucose values <35 mg/dl when Hematocrit is >60 mg/dl,the test may not accurately detect significant hypoglycemia,and testing in the Laboratory should be considered if clinically indicated. POC Performer [id number] [facility] Blood 01/24/2025 8:21 PM CDT 01/24/2025 8:21 PM CDT Brayden Hopkins MD LAB POCT ORDERABLES - KATE CE Final Result Performing Organization Address [facility] de Phone Number [facility] [address] [facility] [place] [address] * POCT glucose (01/24/2025 4:53 PM CDT) Glucose, POC 101 70 - 199 mg/dL Comment: For Glucose values <35 mg/dl when Hematocrit is >60 mg/dl,the test may not accurately detect significant hypoglycemia,and testing in the Laboratory should be considered if clinically indicated. POC Performer [phone] [facility] Blood 01/24/2025 4:53 PM CDT 01/24/2025 4:53 PM CDT Brayden Hopkins MD LAB POCT ORDERABLES - KATE CE Final Result Performing Organization Address [facility] de Phone Number [facility] [address] [place] [address] * (ABNORMAL) POCT glucose (01/24/2025 11:54 AM CDT) Glucose, POC 207(H) 70 - 199 mg/dL Comment: For Glucose values <35 mg/dl when Hematocrit is >60 mg/dl,the test may not accurately detect significant hypoglycemia,and testing in the Laboratory should be considered if clinically indicated. POC Performer [id number] [facility] Blood 01/24/2025 11:5 4 AM CDT 01/24/2025 11:54 AM CDT Brayden Hopkins MD LAB POCT ORDERABLES - KATE CE Final Result Performing Organization Address [facility] Co de Phone Number [facility] [address] [facility] [place] [address] * POCT glucose (01/24/2025 8:44 AM CDT) Glucose, POC 156 70 - 199 mg/dL Comment: For Glucose values <35 mg/dl when Hematocrit is >60 mg/dl,the test may not accurately detect significant hypoglycemia,and testing in the Laboratory should be considered if clinically indicated. POC Performer [phone] [facility] Blood 01/24/2025 8:44 AM CDT 01/24/2025 8:44 AM CDT Brayden Hopkins MD LAB POCT ORDERABLES - KATE CE Final Result Performing Organization Address [facility] de Phone Number [facility] [address] [place] [address] * eGFR (01/24/2025 1:37 AM CDT) Pathologist [facility] eGFR >90 >=60 mL/min/1. 73 m2 Comment: Interpretive Data Reference Interval Normal >/= 90 mL/min/1.73m2 Mildly decreased* 60 - 89 mL/min/1.73m2 Mildly to moderately decreased 45 - 59 mL/min/1.73m2 Moderately to severely decreased 30 - 44 mL/min/1.73m2 Severely decreased 15 - 29 mL/min/1.73m2 Kidney Failure < 15 mL/min/1.73m2 *Relative to young adult level Estimated glomerular filtration rate is determined by the 2020 CKD-EPI equation recommended by the National Kidney Foundation (A Unifying Approach to GFR Estimation: Recommendations of the NKF-ASK Task Force on Reassessing the Inclusion of Race in Diagnosing Kidney Disease, JASN 2020). The CKD-EPI equation should not be used for patients with unstable renal function and has not been validated in children and those over 70. Current interpretive data was last reviewed 2021. Blood 01/24/2025 1:37 AM CDT 01/24/2025 2:34 AM CDT Desire Tapia Tonsor PHOTOENGRAVING ETCHER APPRENTICE LAB BLOOD ORDERABLES Fin al Result Performing Organization Address [facility] Co de Phone Number [facility] [address] Department [place], [place] [id number] * (ABNORMAL) CBC without differential (01/24/2025 1:37 AM CDT) Pathologist [facility] WBC 13.10(H) 3.80 - 9.90 K/cumm Hgb 9.5(L) 13.0 - 17.5 g/dL [facility] Hct 30.2(L) 38.9 - 50.3 % [facility] Plt 311 150 - 400 K/cumm [facility] MPV 11.7 9.1 - 12.3 fL [facility] RBC 3.22(L) 4.30 - 5.80 M/cumm [facility] MCV 93.8 81.3 - 96.4 fL [facility] MCH 29.5 27.1 - 33.3 pg [facility] MCHC 31.5(L) 32.3 - 35.7 g/dL [facility] RDW CV 17.3(H) 11.1 - 14.9 % [facility] RDW SD 56.5(H) 35.7 - 48.1 fL [facility] NRBC abs 0.00 0.00 - 0.01 K/cumm [facility] Blood 01/24/2025 1:37 AM CDT 01/24/2025 2:35 AM CDT Desire Harrellor PHOTOENGRAVING ETCHER APPRENTICE LAB BLOOD ORDERABLES Fin al Result Performing Organization Address [facility]/ZIP Co de Phone Number [facility] [address] [place] [address] * Phosphorus (01/24/2025 1:37 AM CDT) Pathologist [facility] Phosphorus, pl 3.4 2.3 - 4.5 mg/dL Blood 01/24/2025 1:37 AM CDT 01/24/2025 2:34 AM CDT Desire Harrellor PHOTOENGRAVING ETCHER APPRENTICE LAB BLOOD ORDERABLES Fin al Result Performing Organization Address [facility] Co de Phone Number [facility] [address] [place] [address] * (ABNORMAL) Basic metabolic panel (01/24/2025 1:37 AM CDT) [facility] Sodium 139 135 - 145 mmol/L Potassium, pl 3.8 3.3 - 4.9 mmol/L [facility] Chloride 104 97 - 110 mmol/L [facility] CO2 23 22 - 32 mmol/L [facility] Anion gap 12 2 - 15 mmol/L [facility] BUN 15 6 - 25 mg/dL [facility] Creatinine 0.80 0.80 - 1.30 mg/dL [facility] Glucose 218(H) 70 - 199 mg/dL [facility] Comment: Interpretive Data Fasting glucose >/= 126 mg/dl is diagnostic for diabetes. Fasting is defined as no caloric intake for at least 8 hours. Fasting glucose between 100 mg/dl to 125 mg/dl is diagnostic of prediabetes. In a patient with classic symptoms of hyperglycemia or hyperglycemic crisis, a random glucose >/= 200 mg/dl is diagnostic for diabetes. In the absence of unequivocal hyperglycemia, results should be confirmed by repeat testing. The classification and Diagnosis of Diabetes Diabetes Care 2021; 46: S19-S40. Current interpretive data was last revised 2022. Calcium 7.7(L) 8.5 - 10.3 mg/dL [facility] Blood 01/24/2025 1:37 AM CDT 01/24/2025 2:34 AM CDT Desire Harrellne PHOTOENGRAVING ETCHER APPRENTICE LAB BLOOD ORDERABLES Fin al Result Performing Organization Address [facility] Co de Phone Number [facility] [address] [facility] [place] [address] * (ABNORMAL) POCT glucose (01/23/2025 8:13 PM CDT) Glucose, POC 261(H) 70 - 199 mg/dL Comment: For Glucose values <35 mg/dl when Hematocrit is >60 mg/dl,the test may not accurately detect significant hypoglycemia,and testing in the Laboratory should be considered if clinically indicated. POC Performer [phone] [facility] Blood 01/23/2025 8:13 PM CDT 01/23/2025 8:13 PM CDT Brayden Hopkins MD LAB POCT ORDERABLES - KATE CE Final Result Performing Organization Address [facility] Co de Phone Number [facility] [address] [place] [address] * POCT glucose (01/23/2025 5:33 PM CDT) Glucose, POC 144 70 - 199 mg/dL Comment: For Glucose values <35 mg/dl when Hematocrit is >60 mg/dl,the test may not accurately detect significant hypoglycemia,and testing in the Laboratory should be considered if clinically indicated. POC Performer [phone] [facility] Blood 01/23/2025 5:33 PM CDT 01/23/2025 5:33 PM CDT Brayden Hopkins MD LAB POCT ORDERABLES - KATE CE Final Result Performing Organization Address [facility]/ZIP Co de Phone Number [facility] [address] [facility] [place] [address] * (ABNORMAL) POCT glucose (01/23/2025 12:25 PM CDT) Glucose, POC 235(H) 70 - 199 mg/dL Comment: For Glucose values <35 mg/dl when Hematocrit is >60 mg/dl,the test may not accurately detect significant hypoglycemia,and testing in the Laboratory should be considered if clinically indicated. POC Performer [phone] [facility] Blood 01/23/2025 12:2 5 PM CDT 01/23/2025 12:25 PM CDT Brayden Hopkins MD LAB POCT ORDERABLES - KATE CE Final Result Performing Organization Address City/[facility]/ZIP Co de Phone Number [facility] [address] [place] [address] * NT-Pro BNP - Add on lab test (01/23/2025 10:29 AM CDT) Pathologist [facility] Acceptable Yes Blood 01/23/2025 10:2 9 AM CDT 01/23/2025 10:29 AM CDT Narrative [facility] - 01/23/2025 10:29 AM CDT Name of Test->NT-Pro BNP Balbina Mac NP LAB BLOOD ORDERABLES Fi nal Result Performing Organization Address [facility] Co de Phone Number [facility] [address] [place] [address] * POCT glucose (01/23/2025 7:52 AM CDT) Pathologist [facility] Glucose, POC 164 70 - 199 mg/dL Comment: For Glucose values <35 mg/dl when Hematocrit is >60 mg/dl,the test may not accurately detect significant hypoglycemia,and testing in the Laboratory should be considered if clinically indicated. POC Performer [phone] [facility] Blood 01/23/2025 7:52 AM CDT 01/23/2025 7:52 AM CDT Brayden Hopkins MD LAB POCT ORDERABLES - KATE CE Final Result Performing Organization Address City/[facility]/ZIP Co de Phone Number [facility] [address] [place] [address] * eGFR (01/23/2025 12:46 AM CDT) eGFR >90 >=60 mL/min/1. 73 m2 Comment: Interpretive Data Reference Interval Normal >/= 90 mL/min/1.73m2 Mildly decreased* 60 - 89 mL/min/1.73m2 Mildly to moderately decreased 45 - 59 mL/min/1.73m2 Moderately to severely decreased 30 - 44 mL/min/1.73m2 Severely decreased 15 - 29 mL/min/1.73m2 Kidney Failure < 15 mL/min/1.73m2 *Relative to young adult level Estimated glomerular filtration rate is determined by the 2020 CKD-EPI equation recommended by the National Kidney Foundation (A Unifying Approach to GFR Estimation: Recommendations of the NKF-ASK Task Force on Reassessing the Inclusion of Race in Diagnosing Kidney Disease, JASN 2020). The CKD-EPI equation should not be used for patients with unstable renal function and has not been validated in children and those over 70. Current interpretive data was last reviewed 2021. Blood 01/23/2025 12:4 6 AM CDT 01/23/2025 12:58 AM CDT Desire Ghotra NP LAB BLOOD ORDERABLES Fin al Result [facility] [address] Department of Laboratories [place], [place] [id number] * (ABNORMAL) Pro B-type natriuretic peptide (01/23/2025 12:46 AM CDT) NT-proBNP 2,229(H) <=300 pg/mL Comment: Interpretive Comments: A. Dyspnea in Acute Care Setting All Ages: < 300 pg/ml, acute heart failure unlikely. < 50 yrs: 300 - 450 pg/ml, further investigation warranted. > 450 pg/ml, acute heart failure likely. 50 - 74 yrs: 300 - 900 pg/ml, further investigation warranted. > 900 pg/ml, acute heart failure likely . > or = 75 yrs: 450 - 1800 pg/ml, further investigation warranted. > 1800 pg/ml, acute heart failure likely. B. Non-acute Setting < 75 yrs < 125 pg/ml, rules out heart failure. > or = 125 pg/ml, further investigation warranted. > or = 75 yrs < 450 pg/ml, rules out heart failure. > or = 450 pg/ml, further investigation warranted. - Knowledge of each individual patient's NT-proBNP range may be more useful than using similar cut-points for every patient. Please note that marked elevations in NT-proBNP levels may be observed in state other than Left Ventricular Congestive Failure, including: acute coronary syndromes, right heart strain/failure (including pulmonary embolism and cor pulmonale), critical illness, renal failure, as well as advanced age. - References: 1. Dawson OROURKE et.al. Eur Heart J. 2006:27:330-337. 2. Uche CUMMINGS, Gabriella LEUNG. J. AM Jacque Cardiol: Cardiovasc Imag. 2009;2: 216- 225. Interpretive Data Last Revised Date: 2018. Blood 01/23/2025 12:4 6 AM CDT 01/23/2025 12:58 AM CDT us Brayden Hopkins MD LAB BLOOD ORDERABLES Final Result [facility] [address] [place] [address] * (ABNORMAL) CBC without differential (01/23/2025 12:46 AM CDT) WBC 14.01(H) 3.80 - 9.90 K/cumm Hgb 9.7(L) 13.0 - 17.5 g/dL [facility] Hct 30.6(L) 38.9 - 50.3 % [facility] Plt 299 150 - 400 K/cumm [facility] MPV 10.8 9.1 - 12.3 fL [facility] RBC 3.33(L) 4.30 - 5.80 M/cumm [facility] MCV 91.9 81.3 - 96.4 fL [facility] MCH 29.1 27.1 - 33.3 pg [facility] MCHC 31.7(L) 32.3 - 35.7 g/dL [facility] RDW CV 17.6(H) 11.1 - 14.9 % [facility] RDW SD 53.6(H) 35.7 - 48.1 fL [facility] NRBC abs 0.00 0.00 - 0.01 K/cumm [facility] Blood 01/23/2025 12:4 6 AM CDT 01/23/2025 12:58 AM CDT Desire Tapia Tonsor PHOTOENGRAVING ETCHER APPRENTICE LAB BLOOD ORDERABLES Fin al Result Performing Organization Address City/[facility]/ZIP Co de Phone Number [facility] [address] [place], [place] [id number] * Phosphorus (01/23/2025 12:46 AM CDT) [facility] Phosphorus, pl 2.9 2.3 - 4.5 mg/dL Blood 01/23/2025 12:4 6 AM CDT 01/23/2025 12:58 AM CDT Desire Tapia [facility] PHOTOENGRAVING ETCHER APPRENTICE LAB BLOOD ORDERABLES Fin al Result Performing Organization Address [facility] Co de Phone Number [facility] [address] [place] [address] * (ABNORMAL) Basic metabolic panel (01/23/2025 12:46 AM CDT) [facility] Sodium 139 135 - 145 mmol/L Potassium, pl 3.7 3.3 - 4.9 mmol/L [facility] Chloride 105 97 - 110 mmol/L [facility] CO2 23 22 - 32 mmol/L [facility] Anion gap 11 2 - 15 mmol/L [facility] BUN 14 6 - 25 mg/dL [facility] Creatinine 0.79(L) 0.80 - 1.30 mg/dL [facility] Glucose 178 70 - 199 mg/dL [facility] Comment: Interpretive Data Fasting glucose >/= 126 mg/dl is diagnostic for diabetes. Fasting is defined as no caloric intake for at least 8 hours. Fasting glucose between 100 mg/dl to 125 mg/dl is diagnostic of prediabetes. In a patient with classic symptoms of hyperglycemia or hyperglycemic crisis, a random glucose >/= 200 mg/dl is diagnostic for diabetes. In the absence of unequivocal hyperglycemia, results should be confirmed by repeat testing. The classification and Diagnosis of Diabetes Diabetes Care 2021; 46: S19-S40. Current interpretive data was last revised 2022. Calcium 7.4(L) 8.5 - 10.3 mg/dL [facility] Blood 01/23/2025 12:4 6 AM CDT 01/23/2025 12:58 AM CDT Desire Ghotra NP LAB BLOOD ORDERABLES Fin al Result Performing Organization Address [facility]/ZIP Co de Phone Number [facility] [address] Department [employer] [place], [place] [id number] * POCT glucose (01/22/2025 8:42 PM CDT) Glucose, POC 188 70 - 199 mg/dL Comment: For Glucose values <35 mg/dl when Hematocrit is >60 mg/dl,the test may not accurately detect significant hypoglycemia,and testing in the Laboratory should be considered if clinically indicated. POC Performer [phone] [facility] Blood 01/22/2025 8:42 PM CDT 01/22/2025 8:42 PM CDT Brayden Hopkins MD LAB POCT ORDERABLES - KATE CE Final Result Performing Organization Address [facility]/ZIP Co de Phone Number [facility] [address] [place] [address] * POCT glucose (01/22/2025 5:30 PM CDT) Glucose, POC 138 70 - 199 mg/dL Comment: For Glucose values <35 mg/dl when Hematocrit is >60 mg/dl,the test may not accurately detect significant hypoglycemia,and testing in the Laboratory should be considered if clinically indicated. POC Performer [phone] [facility] Blood 01/22/2025 5:30 PM CDT 01/22/2025 5:30 PM CDT Brayden Hopkins MD LAB POCT ORDERABLES - KATE CE Final Result Performing Organization Address [facility] Co de Phone Number [facility] [address] [facility] [place] [address] * POCT glucose (01/22/2025 12:20 PM CDT) Glucose, POC 153 70 - 199 mg/dL Comment: For Glucose values <35 mg/dl when Hematocrit is >60 mg/dl,the test may not accurately detect significant hypoglycemia,and testing in the Laboratory should be considered if clinically indicated. POC Performer [id number] [facility] Blood 01/22/2025 12:2 0 PM CDT 01/22/2025 12:20 PM CDT Brayden Hopikns MD LAB POCT ORDERABLES - KATE CE Final Result Performing Organization Address [facility] de Phone Number [facility] [address] [facility] [place] [address] * POCT glucose (01/22/2025 8:15 AM CDT) Glucose, POC 184 70 - 199 mg/dL Comment: For Glucose values <35 mg/dl when Hematocrit is >60 mg/dl,the test may not accurately detect significant hypoglycemia,and testing in the Laboratory should be considered if clinically indicated. POC Performer [id number] [facility] Blood 01/22/2025 8:15 AM CDT 01/22/2025 8:15 AM CDT Brayden Hopkins MD LAB POCT ORDERABLES - KATE CE Final Result Performing Organization Address [facility] Co de Phone Number [facility] [address] [place] [address] * eGFR (01/22/2025 12:34 AM CDT) Pathologist [facility] eGFR >90 >=60 mL/min/1. 73 m2 Comment: Interpretive Data Reference Interval Normal >/= 90 mL/min/1.73m2 Mildly decreased* 60 - 89 mL/min/1.73m2 Mildly to moderately decreased 45 - 59 mL/min/1.73m2 Moderately to severely decreased 30 - 44 mL/min/1.73m2 Severely decreased 15 - 29 mL/min/1.73m2 Kidney Failure < 15 mL/min/1.73m2 *Relative to young adult level Estimated glomerular filtration rate is determined by the 2020 CKD-EPI equation recommended by the National Kidney Foundation (A Unifying Approach to GFR Estimation: Recommendations of the NKF-ASK Task Force on Reassessing the Inclusion of Race in Diagnosing Kidney Disease, JASN 2020). The CKD-EPI equation should not be used for patients with unstable renal function and has not been validated in children and those over 70. Current interpretive data was last reviewed 2021. Blood 01/22/2025 12:3 4 AM CDT 01/22/2025 12:47 AM CDT Desire Ghotra NP LAB BLOOD ORDERABLES Fin al Result [facility] [address] [place] [address] * (ABNORMAL) CBC without differential (01/22/2025 12:34 AM CDT) [facility] WBC 15.34(H) 3.80 - 9.90 K/cumm Hgb 9.3(L) 13.0 - 17.5 g/dL [facility] Hct 29.4(L) 38.9 - 50.3 % [facility] Plt 295 150 - 400 K/cumm [facility] MPV 11.3 9.1 - 12.3 fL [facility] RBC 3.22(L) 4.30 - 5.80 M/cumm [facility] MCV 91.3 81.3 - 96.4 fL [facility] MCH 28.9 27.1 - 33.3 pg [facility] MCHC 31.6(L) 32.3 - 35.7 g/dL [facility] RDW CV 17.2(H) 11.1 - 14.9 % [facility] RDW SD 53.2(H) 35.7 - 48.1 fL [facility] NRBC abs 0.06(H) 0.00 - 0.01 K/cumm [facility] Blood 01/22/2025 12:3 4 AM CDT 01/22/2025 12:48 AM CDT Desire Tapia Tonsor PHOTOENGRAVING ETCHER APPRENTICE LAB BLOOD ORDERABLES Fin al Result Performing Organization Address [facility] Co de Phone Number [facility] [address] [facility] [place] [address] * Phosphorus (01/22/2025 12:34 AM CDT) Phosphorus, pl 2.9 2.3 - 4.5 mg/dL Blood 01/22/2025 12:3 4 AM CDT 01/22/2025 12:47 AM CDT us Desire Harrellor PHOTOENGRAVING ETCHER APPRENTICE LAB BLOOD ORDERABLES Fin al Result Performing Organization Address City/[facility] Co de Phone Number [facility] [address] [place] [address] * Magnesium (01/22/2025 12:34 AM CDT) Magnesium 1.9 1.4 - 2.5 mg/dL Blood 01/22/2025 12:3 4 AM CDT 01/22/2025 12:47 AM CDT Desire Tapia Tonsor PHOTOENGRAVING ETCHER APPRENTICE LAB BLOOD ORDERABLES Fin al Result Performing Organization Address [facility] Co de Phone Number [facility] [address] [place] [address] * (ABNORMAL) Basic metabolic panel (01/22/2025 12:34 AM CDT) [facility] Sodium 138 135 - 145 mmol/L Potassium, pl 4.1 3.3 - 4.9 mmol/L [facility] Chloride 105 97 - 110 mmol/L [facility] CO2 22 22 - 32 mmol/L [facility] Anion gap 11 2 - 15 mmol/L [facility] BUN 16 6 - 25 mg/dL [facility] Creatinine 0.73(L) 0.80 - 1.30 mg/dL [facility] Glucose 188 70 - 199 mg/dL [facility] Comment: Interpretive Data Fasting glucose >/= 126 mg/dl is diagnostic for diabetes. Fasting is defined as no caloric intake for at least 8 hours. Fasting glucose between 100 mg/dl to 125 mg/dl is diagnostic of prediabetes. In a patient with classic symptoms of hyperglycemia or hyperglycemic crisis, a random glucose >/= 200 mg/dl is diagnostic for diabetes. In the absence of unequivocal hyperglycemia, results should be confirmed by repeat testing. The classification and Diagnosis of Diabetes Diabetes Care 2021; 46: S19-S40. Current interpretive data was last revised 2022. Calcium 7.5(L) 8.5 - 10.3 mg/dL [facility] Blood 01/22/2025 12:3 4 AM CDT 01/22/2025 12:47 AM CDT Desire Ghotra NP LAB BLOOD ORDERABLES Fin al Result [facility] [address] [place] [address] * POCT glucose (01/21/2025 8:45 PM CDT) [facility] Glucose, POC 177 70 - 199 mg/dL Comment: For Glucose values <35 mg/dl when Hematocrit is >60 mg/dl,the test may not accurately detect significant hypoglycemia,and testing in the Laboratory should be considered if clinically indicated. POC Performer [id number] [facility] Blood 01/21/2025 8:45 PM CDT 01/21/2025 8:45 PM CDT Brayden Hopkins MD LAB POCT ORDERABLES - KATE CE Final Result Performing Organization Address [facility] Co de Phone Number [facility] [address] [facility] [place], [place] [id number] * POCT glucose (01/21/2025 5:50 PM CDT) [facility] Glucose, POC 195 70 - 199 mg/dL Comment: For Glucose values <35 mg/dl when Hematocrit is >60 mg/dl,the test may not accurately detect significant hypoglycemia,and testing in the Laboratory should be considered if clinically indicated. POC Performer [phone] [facility] Blood 01/21/2025 5:50 PM CDT 01/21/2025 5:50 PM CDT Brayden Hopkins MD LAB POCT ORDERABLES - KATE CE Final Result Performing Organization Address [facility] de Phone Number [facility] [address] [facility] [place] [address] * ECG 12 lead (01/21/2025 1:08 PM CDT) 01/21/2025 1:08 PM CDT Narrative [facility] - 01/22/2025 8:50 AM CDT Vent Rate: 108 bpm RR Interval: 552 msec IN Interval: 158 msec QRS Duration: 157 msec QT Interval: 386 msec QTC Interval: 450 msec P-R-T [place]: -14 - 56 - 193 degrees IMPRESSION: ELECTRONIC VENTRICULAR PACEMAKER ABNORMAL RHYTHM ECG Electronically Signed By: Hernan Coley MD [facility] Brayden Hopkins MD ECG ORDERABLES Final Resu lt Performing Organization Address [facility] Co de Phone Number [facility] * POCT glucose (01/21/2025 12:27 PM CDT) Glucose, POC 133 70 - 199 mg/dL Comment: For Glucose values <35 mg/dl when Hematocrit is >60 mg/dl,the test may not accurately detect significant hypoglycemia,and testing in the Laboratory should be considered if clinically indicated. POC Performer [phone] [facility] Blood 01/21/2025 12:2 7 PM CDT 01/21/2025 12:27 PM CDT Brayden Hopkins MD LAB POCT ORDERABLES - KATE CE Final Result [facility] [address] [place] [address] * Critical Care (01/21/2025 6:52 AM CDT) Narrative Malcolm Valverde MD - 01/21/2025 6:52 AM CDT Malcolm Valverde MD 01/21/2025 4:58 PM Critical Care Performed by: Desrie Ghotra NP Authorized by: Desire Ghotra NP CRITICAL CARE: Team: [facility] CT Shift: AM Level of Billing: Subsequent Hospital Visit Level 3 My time spent with this patient was 75 minutes: Critical Provider Statement: I have seen and examined the patient on this day of service. I have reviewed and confirmed the history, physical exam, laboratory, and radiographic data as documented in the ICU note. I have reviewed and discussed my treatment plan with the patient's team and other medical/literacy consultant staff. This time was in addition to and separate from care provided by other practitioners on this day of service. Desire Ghotra PHOTOENGRAVING ETCHER APPRENTICE IN CLINIC/BEDSIDE ORDERA BLES Final Result * XR Chest 1 View (01/21/2025 6:30 AM CDT) Anatomical Region Laterality Modality Body, Chest N/A Computed Radiogr aphy 01/21/2025 9:11 AM CDT Impressions 01/21/2025 9:11 AM CDT The patient is status post median sternotomy. The lungs are well-expanded bilaterally. There is a new small left pleural effusion that is associated with some subsegmental atelectasis at the left lung base. There is no pneumothorax. Electronically signed by: Sandeep Mar M.D. Narrative 01/21/2025 9:11 AM CDT EXAMINATION: Chest 1 view Procedure Note Sandeep Mar MD - 01/21/2025 EXAMINATION: Chest 1 view IMPRESSION: The patient is status post median sternotomy. The lungs are well-expanded bilaterally. There is a new small left pleural effusion that is associated with some subsegmental atelectasis at the left lung base. There is no pneumothorax. Electronically signed by: Sandeep Mar M.D. us Kaelyn Gale PHOTOENGRAVING ETCHER APPRENTICE IMG XR PROCEDURES Final Re sult * eGFR (01/21/2025 12:06 AM CDT) eGFR >90 >=60 mL/min/1. 73 m2 Comment: Interpretive Data Reference Interval Normal >/= 90 mL/min/1.73m2 Mildly decreased* 60 - 89 mL/min/1.73m2 Mildly to moderately decreased 45 - 59 mL/min/1.73m2 Moderately to severely decreased 30 - 44 mL/min/1.73m2 Severely decreased 15 - 29 mL/min/1.73m2 Kidney Failure < 15 mL/min/1.73m2 *Relative to young adult level Estimated glomerular filtration rate is determined by the 2020 CKD-EPI equation recommended by the National Kidney Foundation (A Unifying Approach to GFR Estimation: Recommendations of the NKF-ASK Task Force on Reassessing the Inclusion of Race in Diagnosing Kidney Disease, JASN 202). The CKD-EPI equation should not be used for patients with unstable renal function and has not been validated in children and those over 70. Current interpretive data was last reviewed 2021. Blood 01/21/2025 12:0 6 AM CDT 01/21/2025 12:14 AM CDT Eric Neal MD LAB BLOOD ORDERABLES Final Resu lt Performing Organization Address City/[facility]/ZIP Co de Phone Number [facility] [address] [place] [address] * (ABNORMAL) CBC without differential (01/21/2025 12:06 AM CDT) WBC 17.16(H) 3.80 - 9.90 K/cumm Hgb 9.4(L) 13.0 - 17.5 g/dL [facility] Hct 29.3(L) 38.9 - 50.3 % [facility] Plt 274 150 - 400 K/cumm [facility] MPV 11.2 9.1 - 12.3 fL [facility] RBC 3.28(L) 4.30 - 5.80 M/cumm [facility] MCV 89.3 81.3 - 96.4 fL [facility] MCH 28.7 27.1 - 33.3 pg [facility] MCHC 32.1(L) 32.3 - 35.7 g/dL [facility] RDW CV 16.9(H) 11.1 - 14.9 % [facility] RDW SD 53.1(H) 35.7 - 48.1 fL [facility] NRBC abs 0.04(H) 0.00 - 0.01 K/cumm [facility] Blood 01/21/2025 12:0 6 AM CDT 01/21/2025 12:14 AM CDT Kaelyn Gale NP LAB BLOOD ORDERABLES Final Result [facility] [address] Department [employer] [place], [place] [id number] * Phosphorus (01/21/2025 12:06 AM CDT) Phosphorus, pl 2.6 2.3 - 4.5 mg/dL Blood 01/21/2025 12:0 6 AM CDT 01/21/2025 12:14 AM CDT Desirealex Tapia Tonsor PHOTOENGRAVING ETCHER APPRENTICE LAB BLOOD ORDERABLES Fin al Result [facility] [address] [place] [address] * Magnesium (01/21/2025 12:06 AM CDT) [facility] Magnesium 2.0 1.4 - 2.5 mg/dL Blood 01/21/2025 12:0 6 AM CDT 01/21/2025 12:14 AM CDT Desire Harrellor PHOTOENGRAVING ETCHER APPRENTICE LAB BLOOD ORDERABLES Fin al Result Performing Organization Address [facility] Co de Phone Number [facility] [address] [facility] [place] [address] * (ABNORMAL) Basic metabolic panel (01/21/2025 12:06 AM CDT) [facility] Sodium 140 135 - 145 mmol/L Potassium, pl 4.2 3.3 - 4.9 mmol/L [facility] Chloride 106 97 - 110 mmol/L [facility] CO2 21(L) 22 - 32 mmol/L [facility] Anion gap 13 2 - 15 mmol/L [facility] BUN 23 6 - 25 mg/dL [facility] Creatinine 0.87 0.80 - 1.30 mg/dL [facility] Glucose 280(H) 70 - 199 mg/dL [facility] Comment: Interpretive Data Fasting glucose >/= 126 mg/dl is diagnostic for diabetes. Fasting is defined as no caloric intake for at least 8 hours. Fasting glucose between 100 mg/dl to 125 mg/dl is diagnostic of prediabetes. In a patient with classic symptoms of hyperglycemia or hyperglycemic crisis, a random glucose >/= 200 mg/dl is diagnostic for diabetes. In the absence of unequivocal hyperglycemia, results should be confirmed by repeat testing. The classification and Diagnosis of Diabetes Diabetes Care 202; 46: S19-S40. Current interpretive data was last revised 2022. Calcium 7.5(L) 8.5 - 10.3 mg/dL [facility] Blood 01/21/2025 12:0 6 AM CDT 01/21/2025 12:14 AM CDT Desire Tapia Julio Cesarcatherine PHOTOENGRAVING ETCHER APPRENTICE LAB BLOOD ORDERABLES Fin al Result [facility] [address] [place] [address] * Critical Care (01/20/2025 10:26 PM CDT) Narrative Malcolm Valverde MD - 01/20/2025 10:26 PM CDT Malcolm Valverde MD 01/21/2025 8:55 AM Critical Care Performed by: Marco A Espinoza DNP Authorized by: Marco A Espinoza DNP CRITICAL CARE: Team: [facility] CT Shift: PM Level of Billing: Critical Care My time spent with this patient was 75 minutes: Critical Provider Statement: I have seen and examined the patient on this day of service. I have reviewed and confirmed the history, physical exam, laboratory and radiologic data as documented in the signed ICU note. I have reviewed and discussed my treatment plan with the ICU team and other medical/literacy consultant staff, making frequent assessments and decisions regarding this patient's complex medical care. Critical Care time was exclusive of time spent performing separately billed procedures, treating other patients, and teaching. This time was in addition to and separate from critical care provided by other practitioners in my group on this day of service. Critical Care was necessary to treat or prevent imminent or life-threatening deterioration of the following conditions: Marco A Espinoza DNP IN CLINIC/BEDSIDE OR DERABLES Final Result * (ABNORMAL) POCT glucose (01/20/2025 8:23 PM CDT) [facility] Glucose, POC 203(H) 70 - 199 mg/dL Comment: For Glucose values <35 mg/dl when Hematocrit is >60 mg/dl,the test may not accurately detect significant hypoglycemia,and testing in the Laboratory should be considered if clinically indicated. POC Performer [id number] [facility] Blood 01/20/2025 8:23 PM CDT 01/20/2025 8:23 PM CDT Brayden Hopkins MD LAB POCT ORDERABLES - KATE CE Final Result Performing Organization Address City/[facility]/ZIP Co de Phone Number [facility] [address] Department of [employer] [place], [place] [id number] * POCT glucose (01/20/2025 5:30 PM CDT) Glucose, POC 122 70 - 199 mg/dL Comment: For Glucose values <35 mg/dl when Hematocrit is >60 mg/dl,the test may not accurately detect significant hypoglycemia,and testing in the Laboratory should be considered if clinically indicated. POC Performer [id number] [facility] Blood 01/20/2025 5:30 PM CDT 01/20/2025 5:30 PM CDT us Brayden Hopkins MD LAB POCT ORDERABLES - KATE CE Final Result Performing Organization Address [facility]/ZIP Co de Phone Number [facility] [address] Department [employer] [place], [place] [id number] * Lactate (01/20/2025 5:10 PM CDT) Lactate 1.5 0.7 - 2.0 mmol/L Blood 01/20/2025 5:10 PM CDT 01/20/2025 5:36 PM CDT Kaelyn Gale NP LAB BLOOD ORDERABLES Final Result Performing Organization Address City/[facility]/ZIP Co de Phone Number [facility] [address] Department of [employer] [place], [place] [id number] * (ABNORMAL) Differential, auto (01/20/2025 5:10 PM CDT) Neutrophil abs 15.49(H) 1.50 - 6.50 K/cumm Imm gran abs 1.01(H) 0.00 - 0.10 K/cumm [facility] Lymphocyte abs 3.83(H) 0.80 - 3.30 K/cumm [facility] Monocyte abs 1.74(H) 0.20 - 0.80 K/cumm [facility] Eosinophil abs 0.13 0.00 - 0.50 K/cumm [facility] Basophil abs 0.14(H) 0.00 - 0.10 K/cumm [facility] Neutrophil pct 69.4 % [facility] Comment: Interpretive Data Percent cell count reference ranges are not reported, since discordance with absolute values may lead to misinterpretation of CBC data. Current Interpretive Data was last revised on 2018. Imm gran pct 4.5 % [facility] Comment: Interpretive Data Percent cell count reference ranges are not reported, since discordance with absolute values may lead to misinterpretation of CBC data. Current Interpretive Data was last revised on 2018. Lymphocyte pct 17.1 % [facility] Comment: Interpretive Data Percent cell count reference ranges are not reported, since discordance with absolute values may lead to misinterpretation of CBC data. Current Interpretive Data was last revised on 2018. Monocyte pct 7.8 % [facility] Comment: Interpretive Data Percent cell count reference ranges are not reported, since discordance with absolute values may lead to misinterpretation of CBC data. Current Interpretive Data was last revised on 2018. Eosinophil pct 0.6 % [facility] Comment: Interpretive Data Percent cell count reference ranges are not reported, since discordance with absolute values may lead to misinterpretation of CBC data. Current Interpretive Data was last revised on 2018. Basophil pct 0.6 % [facility] Comment: Interpretive Data Percent cell count reference ranges are not reported, since discordance with absolute values may lead to misinterpretation of CBC data. Current Interpretive Data was last revised on 2018. Blood 01/20/2025 5:10 PM CDT 01/20/2025 5:49 PM CDT Kaelyn Gale NP LAB BLOOD ORDERABLES Final Result Performing Organization Address City/[facility] Co de Phone Number [facility] [address] [place] [address] * (ABNORMAL) CBC with auto differential (01/20/2025 5:10 PM CDT) [facility] WBC 22.34(H) 3.80 - 9.90 K/cumm Hgb 10.3(L) 13.0 - 17.5 g/dL [facility] Hct 31.4(L) 38.9 - 50.3 % [facility] Plt 326 150 - 400 K/cumm [facility] MPV 10.9 9.1 - 12.3 fL [facility] RBC 3.54(L) 4.30 - 5.80 M/cumm [facility] MCV 88.7 81.3 - 96.4 fL [facility] MCH 29.1 27.1 - 33.3 pg [facility] MCHC 32.8 32.3 - 35.7 g/dL [facility] RDW CV 16.8(H) 11.1 - 14.9 % [facility] RDW SD 52.4(H) 35.7 - 48.1 fL [facility] NRBC abs 0.03(H) 0.00 - 0.01 K/cumm [facility] Blood 01/20/2025 5:10 PM CDT 01/20/2025 5:49 PM CDT Kaelyn Gale NP LAB BLOOD ORDERABLES Final Result Performing Organization Address [facility] Co de Phone Number [facility] [address] [place] [address] * Transfuse RBC (01/20/2025 3:02 PM CDT) Blood Kaelyn Gale NP BLOOD TRANSFUSION ORDERABL ES Final Result Performing Organization Address [facility]/ZIP Co de Phone Number [facility] [address] [place] [address] * TRANSTHORACIC ECHO (TTE) LIMITED/FOLLOW UP WO DOPPLER/CF WO CONTRAST (01/20/2025 2:17 PM CDT) LV EF 20-25 % CONS SCIMAGE Anatomical Region Laterality Modality Ultrasound 01/20/2025 12:5 4 PM CDT Narrative 01/20/2025 6:06 PM CDT [facility] [address] [place] [address] LIMITED ECHOCARDIOGRAM Patient Name: MAURICIO HEADLEY C : 1955 (69y 11m) Gender: M Study Date: 01/20/2025 12:54:10 PM Ht(Inch): 68 Wt(Lb): 161 BSA: 1.87 Help Desk Technician: Location: [address] Order Provider: KAELYN GALE BMI: 24.48 BP: 128/83 Ref Provider: KAELYN AGLE - PROCEDURES: Echocardiographic Report: Limited TTE. INDICATIONS: Pericardial effusion. MEASUREMENTS: 2D/MM Value Range Estimated EF 20-25 % 2D/MM Value Range - FINDINGS: BP: Blood pressure: 128/83 mmHg. Left Ventricle: The study quality is inadequate for detailed regional wall motion assessment. Ejection Fraction is estimated to be 20-25. There is paradoxic septal motion. Right Atrium: The right atrium is normal in size. There is non-specific thickening of the RA free wall. Mitral Valve: The anterior mitral valve leaflets appear mildly thickened. Aortic Valve: Aortic valve not well visualized. Tricuspid Valve: Grossly normal appearing tricuspid valve. Pulmonic Valve: The pulmonic valve is not seen. Pericardium: Normal appearing pericardial thickness. Small pericardial effusion. CONCLUSIONS: 1. The study quality is inadequate for detailed regional wall motion assessment. Ejection Fraction is estimated to be 20-25. There is paradoxic septal motion. 2. Normal appearing pericardial thickness. Small pericardial effusion. Electronically Signed By: Jasen Mclaughlin MD 01/20/2025 6:05:57 PM CDT Procedure Note Jasen Mclaughlin MD - 01/20/2025 [facility] [address] [place] [address] LIMITED ECHOCARDIOGRAM Patient Name: MAURICIO HEADLEY C : 1955 (69y 11m) Gender: M Study Date: 01/20/2025 12:54:10 PM Ht(Inch): 68 Wt(Lb): 161 BSA: 1.87 Help Desk Technician: Location: [address] Order Provider: KAELYN GALE BMI: 24.48 BP: 128/83 Ref Provider: KAELYN GALE - PROCEDURES: Echocardiographic Report: Limited TTE. INDICATIONS: Pericardial effusion. MEASUREMENTS: 2D/MM Value Range Estimated EF 20-25 % 2D/MM Value Range - FINDINGS: BP: Blood pressure: 128/83 mmHg. Left Ventricle: The study quality is inadequate for detailed regional wallmotion assessment. Ejection Fraction is estimated to be 20-25. There is paradoxicseptal motion. Right Atrium: The right atrium is normal in size. There is non- specificthickening of the RA free wall. Mitral Valve: The anterior mitral valve leaflets appear mildlythickened. Aortic Valve: Aortic valve not well visualized. Tricuspid Valve: Grossly normal appearing tricuspid valve. Pulmonic Valve: The pulmonic valve is not seen. Pericardium: Normal appearing pericardial thickness. Small pericardialeffusion. CONCLUSIONS: 1. The study quality is inadequate for detailed regional wall motionassessment. Ejection Fraction is estimated to be 20-25. There is paradoxic septal motion. 2. Normal appearing pericardial thickness. Small pericardial effusion. Electronically Signed By: Jasen Mclaughlin MD 01/20/2025 6:05:57 PM CDT Kaelyn Gale NP CV ECHO PROCEDURES Final R esult * Potassium (01/20/2025 2:14 PM CDT) [facility] Potassium, pl 4.2 3.3 - 4.9 mmol/L Blood 01/20/2025 2:14 PM CDT 01/20/2025 2:45 PM CDT Kaelyn Gale NP LAB BLOOD ORDERABLES Final Result Performing Organization Address [facility] Co de Phone Number [facility] [address] [place] [address] * Prepare RBC: 1 Units (01/20/2025 12:10 PM CDT) [facility] Product code [id number] Unit Number [id number] Z [facility] Product Blood Type BNEG [facility] Dispense Status PRESUMED TRANSFUSED [facility] Blood 01/20/2025 12:1 0 PM CDT Narrative [facility] - 01/21/2025 11:34 AM CDT Other indication->GIB/ hypovolemia Are special requirements needed? (All products are leukoreduced and CMV- safe)- >No Date required:-[id number] LRRBC # of [id number] Reasons:-Other (specify)} Kaelyn Gale NP BLOOD BANK PRODUCT ORDERAB LES Final Result Performing Organization Address [facility] Co de Phone Number [facility] [address] [place] [address] * (ABNORMAL) Lactate (01/20/2025 11:25 AM CDT) Pathologist [facility] Lactate 3.6(H) 0.7 - 2.0 mmol/L Blood 01/20/2025 11:2 5 AM CDT 01/20/2025 11:32 AM CDT Kaelyn Gale NP LAB BLOOD ORDERABLES Final Result Performing Organization Address [facility]/ZIP Co de Phone Number [facility] [address] [place] [address] * (ABNORMAL) CBC without differential (01/20/2025 11:25 AM CDT) [facility] WBC 21.74(H) 3.80 - 9.90 K/cumm Hgb 9.1(L) 13.0 - 17.5 g/dL [facility] Hct 29.2(L) 38.9 - 50.3 % [facility] Plt 317 150 - 400 K/cumm [facility] MPV 11.1 9.1 - 12.3 fL [facility] RBC 3.20(L) 4.30 - 5.80 M/cumm [facility] MCV 91.3 81.3 - 96.4 fL [facility] MCH 28.4 27.1 - 33.3 pg [facility] MCHC 31.2(L) 32.3 - 35.7 g/dL [facility] RDW CV 17.4(H) 11.1 - 14.9 % [facility] RDW SD 56.9(H) 35.7 - 48.1 fL [facility] NRBC abs 0.02(H) 0.00 - 0.01 K/cumm [facility] Blood 01/20/2025 11:2 5 AM CDT 01/20/2025 11:33 AM CDT Kaelyn Gale PHOTOENGRAVING ETCHER APPRENTICE LAB BLOOD ORDERABLES Final Result Performing Organization Address [facility]/ZIP Co de Phone Number [facility] [address] [facility] [place] [address] * (ABNORMAL) POCT glucose (01/20/2025 11:20 AM CDT) Glucose, POC 227(H) 70 - 199 mg/dL Comment: For Glucose values <35 mg/dl when Hematocrit is >60 mg/dl,the test may not accurately detect significant hypoglycemia,and testing in the Laboratory should be considered if clinically indicated. POC Performer [phone] [facility] Blood 01/20/2025 11:2 0 AM CDT 01/20/2025 11:20 AM CDT Brayden Hopkins MD LAB POCT ORDERABLES - KATE CE Final Result Performing Organization Address [facility] Co de Phone Number [facility] [address] [facility] [place] [address] * POCT glucose (01/20/2025 7:48 AM CDT) Glucose, POC 167 70 - 199 mg/dL Comment: For Glucose values <35 mg/dl when Hematocrit is >60 mg/dl,the test may not accurately detect significant hypoglycemia,and testing in the Laboratory should be considered if clinically indicated. POC Performer [phone] [facility] Blood 01/20/2025 7:48 AM CDT 01/20/2025 7:48 AM CDT Brayden Hopkins MD LAB POCT ORDERABLES - KATE CE Final Result Performing Organization Address City/[facility]/ZIP Co de Phone Number [facility] [address] [facility] [place] [address] * Critical Care (01/20/2025 7:03 AM CDT) Narrative Malcolm Valverde MD - 01/20/2025 7:03 AM CDT Malcolm Valverde MD 01/21/2025 8:55 AM Critical Care Performed by: Kaelyn Gale NP Authorized by: Kaelyn Gale NP CRITICAL CARE: Team: [facility] CT Shift: AM Level of Billing: Subsequent Hospital Visit Level 3 My time spent with this patient was 75 minutes: Critical Provider Statement: I have seen and examined the patient on this day of service. I have reviewed and confirmed the history, physical exam, laboratory, and radiographic data as documented in the ICU note. I have reviewed and discussed my treatment plan with the patient's team and other medical/literacy consultant staff. This time was in addition to and separate from care provided by other practitioners on this day of service. Kaelyn Gale NP IN CLINIC/BEDSIDE ORDERABL ES Final Result * XR Chest 1 View (01/20/2025 6:39 AM CDT) Anatomical Region Laterality Modality Body, Chest N/A Computed Radiogr aphy 01/20/2025 7:23 AM CDT Impressions 01/20/2025 7:23 AM CDT 1. No interval pleural effusion is appreciated chest radiograph. 2. Otherwise negative chest radiograph without significant change. COMMENT: Please see above for additional findings. Electronically signed by: Mau Roland M.D. Narrative 01/20/2025 7:23 AM CDT XR CHEST 1 VIEW HISTORY: Other (type) evaluate pleural effusion COMPARISON: Portable chest 25 at 1215 hours A chest radiograph in the AP was presented. FINDINGS: The lateral costophrenic angles are sharply defined bilaterally without evidence of pleural effusion Patient is undergone median sternotomy. Surgical clips are noted along the left heart border. The osseous structures and chest wall are grossly within expected limits. There is no evidence of pneumothorax. The mediastinum and palmira within expected limits. The cardiac silhouette within normal size limits. The lateral costophrenic angles are preserved bilaterally. No definite infiltrates, suspicious opacities or abnormal interstitial markings are appreciated. The included portion of the upper abdomen is within expected limits. Procedure Note Mau Roland MD - 01/20/2025 XR CHEST 1 VIEW HISTORY: Other (type) evaluate pleural effusion COMPARISON: Portable chest 25 at 1215 hours A chest radiograph in the AP was presented. FINDINGS: The lateral costophrenic angles are sharply defined bilaterally without evidence of pleural effusion Patient is undergone median sternotomy. Surgical clips are noted along the left heart border. The osseous structures and chest wall are grossly within expected limits. There is no evidence of pneumothorax. The mediastinum and palmira within expected limits. The cardiac silhouette within normal size limits. The lateral costophrenic angles are preserved bilaterally. No definite infiltrates, suspicious opacities or abnormal interstitial markings are appreciated. The included portion of the upper abdomen is within expected limits. IMPRESSION: 1. No interval pleural effusion is appreciated chest radiograph. 2. Otherwise negative chest radiograph without significant change. COMMENT: Please see above for additional findings. Electronically signed by: Mau Roland M.D. Kaelyn Gale PHOTOENGRAVING ETCHER APPRENTICE IMG XR PROCEDURES Final Re sult * Lactate (01/20/2025 5:40 AM CDT) Lactate 2.0 0.7 - 2.0 mmol/L Blood 01/20/2025 5:40 AM CDT 01/20/2025 5:50 AM CDT Elsa Doe NP LAB BLOOD ORDERABLES Madhavi l Result [facility] [address] [place] [address] * eGFR (01/20/2025 5:40 AM CDT) eGFR >90 >=60 mL/min/1. 73 m2 Comment: Interpretive Data Reference Interval Normal >/= 90 mL/min/1.73m2 Mildly decreased* 60 - 89 mL/min/1.73m2 Mildly to moderately decreased 45 - 59 mL/min/1.73m2 Moderately to severely decreased 30 - 44 mL/min/1.73m2 Severely decreased 15 - 29 mL/min/1.73m2 Kidney Failure < 15 mL/min/1.73m2 *Relative to young adult level Estimated glomerular filtration rate is determined by the 2020 CKD-EPI equation recommended by the National Kid[employer] (A Unifying Approach to GFR Estimation: Recommendations of the NKF-ASK Task Force on Reassessing the Inclusion of Race in Diagnosing Kidney Disease, JASN 2020). The CKD-EPI equation should not be used for patients with unstable renal function and has not been validated in children and those over 70. Current interpretive data was last reviewed 2021. Blood 01/20/2025 5:40 AM CDT 01/20/2025 5:56 AM CDT us Brayden Hopkins MD LAB BLOOD ORDERABLES Final Result Performing Organization Address City/[facility]/ZIP Co de Phone Number [facility] [address] Department [place] [address] * (ABNORMAL) CBC without differential (01/20/2025 5:40 AM CDT) WBC 21.31(H) 3.80 - 9.90 K/cumm Hgb 9.3(L) 13.0 - 17.5 g/dL [facility] Hct 29.6(L) 38.9 - 50.3 % [facility] Plt 220 150 - 400 K/cumm [facility] MPV 11.2 9.1 - 12.3 fL [facility] RBC 3.27(L) 4.30 - 5.80 M/cumm [facility] MCV 90.5 81.3 - 96.4 fL [facility] MCH 28.4 27.1 - 33.3 pg [facility] MCHC 31.4(L) 32.3 - 35.7 g/dL [facility] RDW CV 17.3(H) 11.1 - 14.9 % [facility] RDW SD 55.4(H) 35.7 - 48.1 fL [facility] NRBC abs 0.00 0.00 - 0.01 K/cumm [facility] Blood 01/20/2025 5:40 AM CDT 01/20/2025 5:55 AM CDT Kaelyn Gale NP LAB BLOOD ORDERABLES Final Result Performing Organization Address City/[facility]/ZIP Co de Phone Number [facility] [address] [place] [address] * Phosphorus (01/20/2025 5:40 AM CDT) [facility] Phosphorus, pl 3.0 2.3 - 4.5 mg/dL Blood 01/20/2025 5:40 AM CDT 01/20/2025 5:53 AM CDT [facility] PHOTOENGRAVING ETCHER APPRENTICE LAB BLOOD ORDERABLES Fin al Result Performing Organization Address [facility]/ZIP Co de Phone Number [facility] [address] [place] [address] * Magnesium (01/20/2025 5:40 AM CDT) [facility] Magnesium 2.0 1.4 - 2.5 mg/dL Blood 01/20/2025 5:40 AM CDT 01/20/2025 5:53 AM CDT [facility] PHOTOENGRAVING ETCHER APPRENTICE LAB BLOOD ORDERABLES Fin al Result Performing Organization Address [facility] de Phone Number [facility] [address] [place] [address] * (ABNORMAL) Basic metabolic panel (01/20/2025 5:40 AM CDT) [facility] Sodium 139 135 - 145 mmol/L Potassium, pl 5.3(H) 3.3 - 4.9 mmol/L [facility] Comment:Hemolyzed; potassium value may be falsely elevated by as much as 0.6 - 1.0 mmol/L. Suggest redraw and reanalysis Chloride 106 97 - 110 mmol/L [facility] CO2 22 22 - 32 mmol/L [facility] Anion gap 11 2 - 15 mmol/L [facility] BUN 35(H) 6 - 25 mg/dL [facility] Creatinine 0.68(L) 0.80 - 1.30 mg/dL [facility] Glucose 155 70 - 199 mg/dL [facility] Comment: Interpretive Data Fasting glucose >/= 126 mg/dl is diagnostic for diabetes. Fasting is defined as no caloric intake for at least 8 hours. Fasting glucose between 100 mg/dl to 125 mg/dl is diagnostic of prediabetes. In a patient with classic symptoms of hyperglycemia or hyperglycemic crisis, a random glucose >/= 200 mg/dl is diagnostic for diabetes. In the absence of unequivocal hyperglycemia, results should be confirmed by repeat testing. The classification and Diagnosis of Diabetes Diabetes Care 2021; 46: S19-S40. Current interpretive data was last revised 2022. Calcium 7.8(L) 8.5 - 10.3 mg/dL [facility] Blood 01/20/2025 5:40 AM CDT 01/20/2025 5:41 AM CDT us Brayden Hopkins MD LAB BLOOD ORDERABLES Final Result [facility] [address] [place] [address] * (ABNORMAL) CBC without differential (01/20/2025 12:04 AM CDT) WBC 22.37(H) 3.80 - 9.90 K/cumm Hgb 10.3(L) 13.0 - 17.5 g/dL [facility] Hct 32.7(L) 38.9 - 50.3 % [facility] Plt 325 150 - 400 K/cumm [facility] MPV 11.5 9.1 - 12.3 fL [facility] RBC 3.67(L) 4.30 - 5.80 M/cumm [facility] MCV 89.1 81.3 - 96.4 fL [facility] Comment:MCV delta due to garry arent blood transfusion. This result has been called to Young CURRY by [email or web address] on 01/20/2025 01:24:08. MCH 28.1 27.1 - 33.3 pg [facility] MCHC 31.5(L) 32.3 - 35.7 g/dL [facility] RDW CV 16.7(H) 11.1 - 14.9 % [facility] RDW SD 53.7(H) 35.7 - 48.1 fL [facility] NRBC abs 0.02(H) 0.00 - 0.01 K/cumm [facility] [facility] Blood 01/20/2025 12:0 4 AM CDT 01/20/2025 12:36 AM CDT Kaelyn Gale PHOTOENGRAVING ETCHER APPRENTICE LAB BLOOD ORDERABLES Final Result [facility] [address] [facility] [employer] [place], [place] [phone] * Potassium (01/20/2025 12:04 AM CDT) Pathologist [facility] Potassium, pl 4.1 3.3 - 4.9 mmol/L Blood 01/20/2025 12:0 4 AM CDT 01/20/2025 12:36 AM CDT Elsa Doe PHOTOENGRAVING ETCHER APPRENTICE LAB BLOOD ORDERABLES Madhavi l Result Performing Organization Address [facility] Co de Phone Number [facility] [address] [facility] [place] [place], [place] [phone] * Magnesium (01/20/2025 12:04 AM CDT) [facility] Magnesium 1.9 1.4 - 2.5 mg/dL Blood 01/20/2025 12:0 4 AM CDT 01/20/2025 12:36 AM CDT Elsa Doe PHOTOENGRAVING ETCHER APPRENTICE LAB BLOOD ORDERABLES Madhavi l Result Performing Organization Address [facility] Co de Phone Number [facility] [address] [facility] [place], [place] [phone] * POCT glucose (01/19/2025 8:02 PM CDT) Pathologist [facility] Glucose, POC 142 70 - 199 mg/dL Comment: For Glucose values <35 mg/dl when Hematocrit is >60 mg/dl,the test may not accurately detect significant hypoglycemia,and testing in the Laboratory should be considered if clinically indicated. POC Performer [phone] [facility] Blood 01/19/2025 8:02 PM CDT 01/19/2025 8:02 PM CDT Result [facility] Brayden Hopkins MD LAB POCT ORDERABLES - KATE CE Final Result Performing Organization Address [facility] Co de Phone Number [facility] [address] [place] [employer] [place] [address] * Critical Care (01/19/2025 7:49 PM CDT) Narrative Malcolm Valverde MD - 01/19/2025 7:49 PM CDT Malcolm Valverde MD 01/20/2025 7:53 AM Critical Care Performed by: Elsa Doe NP Authorized by: Elsa Doe NP CRITICAL CARE: Team: [facility] CT Shift: PM Level of Billing: Subsequent Hospital Visit Level 3 My time spent with this patient was 20 minutes: Critical Provider Statement: I have seen and examined the patient on this day of service. I have reviewed and confirmed the history, physical exam, laboratory, and radiographic data as documented in the ICU note. I have reviewed and discussed my treatment plan with the patient's team and other medical/literacy consultant staff. This time was in addition to and separate from care provided by other practitioners on this day of service. I spent time documenting in the medical record, I spent time discussing the management of this critically ill patient with consultants and the medical staff and I spent time reviewing and interpreting data from bedside monitors, laboratory results, and imaging Elsa Doe PHOTOENGRAVING ETCHER APPRENTICE IN CLINIC/BEDSIDE ORDERAB LES Final Result * Transfuse RBC (01/19/2025 5:51 PM CDT) Blood Bella Campoverde PA BLOOD TRANSFUSION ORDERABLES Final Result Performing Organization Address [facility]/ZIP Co de Phone Number [facility] [address] [place] [employer] [place] [address] * POCT glucose (01/19/2025 5:49 PM CDT) [facility] Glucose, POC 164 70 - 199 mg/dL Comment: For Glucose values <35 mg/dl when Hematocrit is >60 mg/dl,the test may not accurately detect significant hypoglycemia,and testing in the Laboratory should be considered if clinically indicated. POC Performer [phone] [facility] Blood 01/19/2025 5:49 PM CDT 01/19/2025 5:49 PM CDT us Brayden Hopkins MD LAB POCT ORDERABLES - KATE CE Final Result Performing Organization Address City/[facility]/ZIP Co de Phone Number [facility] [address] [place] [address] * (ABNORMAL) Lactate (01/19/2025 5:47 PM CDT) [facility] Lactate 2.1(H) 0.7 - 2.0 mmol/L Blood 01/19/2025 5:47 PM CDT 01/19/2025 5:52 PM CDT Narrative [facility] - 01/19/2025 6:33 PM CDT Send with post transfusion CBC us Kaelyn Gale NP LAB BLOOD ORDERABLES Final Result Performing Organization Address City/[facility]/ZIP Co de Phone Number [facility] [address] [place] [address] * (ABNORMAL) CBC without differential (01/19/2025 5:47 PM CDT) [facility] WBC 23.48(H) 3.80 - 9.90 K/cumm Hgb 11.3(L) 13.0 - 17.5 g/dL [facility] Hct 38.4(L) 38.9 - 50.3 % [facility] Plt 323 150 - 400 K/cumm [facility] MPV 10.8 9.1 - 12.3 fL [facility] RBC 3.92(L) 4.30 - 5.80 M/cumm [facility] MCV 98.0(H) 81.3 - 96.4 fL [facility] MCH 28.8 27.1 - 33.3 pg [facility] MCHC 29.4(L) 32.3 - 35.7 g/dL [facility] RDW CV 16.4(H) 11.1 - 14.9 % [facility] RDW SD 57.1(H) 35.7 - 48.1 fL [facility] NRBC abs 0.02(H) 0.00 - 0.01 K/cumm [facility] Blood 01/19/2025 5:47 PM CDT 01/19/2025 5:53 PM CDT us Kaelyn Gale NP LAB BLOOD ORDERABLES Final Result [facility] [address] [place] [address] * Critical Care (01/19/2025 4:55 PM CDT) Narrative Malcolm Valverde MD - 01/19/2025 4:55 PM CDT Malcolm Valverde MD 01/20/2025 7:53 AM Critical Care Performed by: Kaelyn Gale NP Authorized by: Kaelyn Gale NP CRITICAL CARE: Team: [facility] CT Shift: AM Level of Billing: Initial Hospital Visit Level 3 My time spent with this patient was 50 minutes: Critical Provider Statement: I have seen and examined the patient on this day of service. I have reviewed and confirmed the history, physical exam, laboratory, and radiographic data as documented in the ICU note. I have reviewed and discussed my treatment plan with the patient's team and other medical/literacy consultant staff. This time was in addition to and separate from care provided by other practitioners on this day of service. I spent time reviewing and interpreting data from bedside monitors, laboratory results, and imaging, I spent time discussing the management of this critically ill patient with consultants and the medical staff and I spent time documenting in the medical record us Kaelyn Gale NP IN CLINIC/BEDSIDE ORDERABL ES Final Result * EGD (01/19/2025 2:34 PM CDT) Anatomical Region Laterality Modality Other Narrative Procedure Note Eric Neal MD - 01/19/2025 2:34 PM CDT ENDOSCOPY LAB Patient Name: Mauricio Headley Procedure Date: 01/19/2025 2:34 PM Admit Type: Inpatient Room: [facility] Date of : 1955 Instrument Name: [id number] Gender: Male Note Status: Finalized Procedure: Upper GI endoscopy Indications: Acute post hemorrhagic anemia, Melena Providers: Eric Neal M.D. Referring MD: Radha Epps NP Medicines: See the Anesthesia note for documentation of the administered medications Complications: No immediate complications. Estimated Blood Loss: Estimated blood loss: none. Procedure: Pre-Anesthesia Assessment: - Prior to the procedure, a History and Physicalwas performed, and patient medications and allergieswere reviewed. The patient is competent. The risks and benefits of the procedure and the sedation optionsand risks were discussed with the patient. Allquestions were answered and informed consent was obtained. Patient identification and proposed procedure were verified by the physician, the nurse, the anesthesiologist and the aircraft maintenance technician in the pre-procedure area in the endoscopy suite. Mental Status Examination: alert and oriented. Airway Examination: normal oropharyngeal airway and neck mobility. Respiratory Examination: clear to auscultation. CV Examination: normal. Prophylactic Antibiotics: The patient does not requireprophylactic antibiotics. Prior Anticoagulants: The patient has taken Plavix (clopidogrel), last dose was day of procedure. ASA Grade Assessment: III - A patientwith severe systemic disease. After reviewing the risksand benefits, the patient was deemed in satisfactory condition to undergo the procedure. The anesthesia plan was to use monitored anesthesia care (MAC). Immediately prior to administration of medications, the patient was re-assessed for adequacy to receive sedatives. The heart rate, respiratory rate, oxygen saturations, blood pressure, adequacy of pulmonary ventilation, and response to care were monitored throughout the procedure. The physical status ofthe patient was re-assessed after the procedure. The benefits, risks, and alternatives to theprocedure and sedation were discussed and informed consentwas obtained. The scope was passed under direct vision. The Endoscope was introduced through the mouth, and advanced to the second part of duodenum. The upperGI endoscopy was accomplished without difficulty. The patient tolerated the procedure well. Findings: The oropharynx was normal. The examined esophagus was normal. A large amount of food (residue) was found in the entire examined stomach. There is no endoscopic evidence of bleeding, ulceration or mass inthe entire examined stomach. One non-obstructing non-bleeding cratered duodenal ulcer with a flat pigmented spot (Luis F Class IIc) was found in the duodenal bulb.The lesion was 14 mm in largest dimension. There is no evidence of perforation. The second portion of the duodenum was normal. Impression: - Normal oropharynx. - Normal esophagus. - A large amount of food (residue) in thestomach. - Non-obstructing non-bleeding duodenal ulcer witha flat pigmented spot (Luis F Class IIc). There isno evidence of perforation. - Normal second portion of the duodenum. - No specimens collected. Recommendation: - Return patient to [facility] for [facility]care. - Full liquid diet today. - Use Protonix (pantoprazole) 40 mg IV BID daily. - I anticipate no further need for intervention. Electronically signed by Eric Neal MD Eric Neal M.D. 01/19/2025 3:58:37 PM This document was signed electronically. Number of Addenda: 0 Note Initiated On: 01/19/2025 2:34 PM Scope In: Scope Out: Eric Neal MD ENDOSCOPY PROCEDURES Final Resu lt * Prepare RBC: 1 Units (01/19/2025 2:07 PM CDT) Pathologist [facility] Product code [id number] Unit Number [id number]- R [facility] Product Blood Type BPOS [facility] Dispense Status PRESUMED TRANSFUSED [facility] Blood 01/19/2025 2:07 PM CDT Narrative [facility] - 01/21/2025 11:34 AM CDT Are special requirements needed? (All products are leukoreduced and CMV- safe)- >No Date required:-[id number] LRRBC # of Levnv-[id number] Reasons:-Hemorrhagic shock/Life-threatening bleeding} Bella MCGUIRE BLOOD BANK PRODUCT ORDERABLE S Final Result Performing Organization Address [facility]/ZIP Co de Phone Number [facility] [address] [place] [address] * (ABNORMAL) Hemoglobin and hematocrit (01/19/2025 12:37 PM CDT) Pathologist [facility] Hgb 9.7(L) 13.0 - 17.5 g/dL Hct 30.4(L) 38.9 - 50.3 % [facility] Blood 01/19/2025 12:3 7 PM CDT 01/19/2025 1:02 PM CDT Bella MCGUIRE LAB BLOOD ORDERABLES Final R esult [facility] [address] Department [place] [address] * XR Chest 1 View (01/19/2025 12:22 PM CDT) Anatomical Region Laterality Modality Body, Chest N/A Computed Radiogr aphy 01/19/2025 12:2 6 PM CDT Impressions 01/19/2025 12:26 PM CDT FINDINGS/IMPRESSION: Sternotomy wires are seen. Left pleural effusion has near completely resolved. Minimal left basilar atelectatic changes. Otherwise no visualized focal consolidation, pleural effusion or pneumothorax. The cardiomediastinal silhouette is grossly unremarkable. Electronically signed by: Arben Duque M.D. Narrative 01/19/2025 12:26 PM CDT EXAMINATION: XR CHEST 1 VIEW HISTORY: SOB COMPARISON: 01/16/2025 Procedure Note Arben Aaron MD - 01/19/2025 EXAMINATION: XR CHEST 1 VIEW HISTORY: SOB COMPARISON: 01/16/2025 IMPRESSION: FINDINGS/IMPRESSION: Sternotomy wires are seen. Left pleural effusion has near completely resolved. Minimal left basilar atelectatic changes. Otherwise no visualized focal consolidation, pleural effusion or pneumothorax. The cardiomediastinal silhouette is grossly unremarkable. Electronically signed by: Arben Duque M.D. Bella MCGUIRE IMG XR PROCEDURES Final Resu lt * (ABNORMAL) POCT glucose (01/19/2025 12:11 PM CDT) Glucose, POC 221(H) 70 - 199 mg/dL Comment: For Glucose values <35 mg/dl when Hematocrit is >60 mg/dl,the test may not accurately detect significant hypoglycemia,and testing in the Laboratory should be considered if clinically indicated. POC Performer [phone] [facility] Blood 01/19/2025 12:1 1 PM CDT 01/19/2025 12:11 PM CDT Brayden Hopkins MD LAB POCT ORDERABLES - KATE CE Final Result Performing Organization Address City/[facility]/ZIP Co de Phone Number [facility] [address] [place] [address] * NT-Pro BNP - Add on lab test (01/19/2025 11:45 AM CDT) Acceptable Yes Blood 01/19/2025 11:4 5 AM CDT 01/19/2025 11:45 AM CDT Narrative [facility] - 01/19/2025 11:46 AM CDT Name of Test->NT-Pro BNP Balbina Mac NP LAB BLOOD ORDERABLES Fi nal Result Performing Organization Address City/[facility]/ZIP Co de Phone Number [facility] [address] [place] [address] * Blood culture Blood (01/19/2025 10:41 AM CDT) Report Final Report: No growth Blood 01/19/2025 10:4 1 AM CDT 01/19/2025 11:35 AM CDT Narrative [facility] - 01/24/2025 1:01 PM CDT Collection->Peripheral Interpretive Data 1. Blood cultures are incubated and monitored continuously for 5 days (120 hours). The first negative report is issued within 24 hours of receipt in the laboratory. 2. All positive cultures are resulted and called to physicians/care providers as soon as they are detected. 3. A rapid molecular test for organism identification may be performed using the [employer] Blood Culture Identification panel. This assay detects microbial DNA in a blood culture broth. This assay has been cleared by the [place] Food and Drug Administration and its performance characteristics have been verified by the [facility] Microbiology Laboratory. Interpretive data was last revised on November 09, 2022. Eric Neal MD LAB MICROBIOLOGY - GENERAL ORDE RABLES Final Result [facility] [address] [place] [address] * Type and screen (01/19/2025 8:52 AM CDT) ABO Rh B Positive Esme, indirect Negative [facility] Blood 01/19/2025 8:52 AM CDT 01/19/2025 8:56 AM CDT Narrative [facility] - 01/19/2025 9:56 AM CDT Has the patient had Daratumumab or Isatuximab in the past 6 months?->Unknown Bella MCGUIRE LAB BLOOD BANK TEST ORDERABL ES Final Result Performing Organization Address [facility] Co de Phone Number [facility] [address] Department [place], [place] [phone] * C. difficile testing Stool (01/19/2025 8:11 AM CDT) Pathologist [facility] GDH Result Negative Negative Toxin Result Negative Negative [facility] C. diff result Negative, free toxin Negative, free toxin [facility] C. diff interp Negative for toxigenic Clostridioides (Clostridium) difficile. Analysis was performed using a glutamate dehydrogenase antigen detection assay combined with a C. difficile toxin detection assay. [facility] Stool 01/19/2025 8:11 AM CDT 01/19/2025 3:24 PM CDT us Bella MCGUIRE LAB MICROBIOLOGY - GENERAL O RDERABLES Final Result Performing Organization Address City/[facility]/ZIP Co de Phone Number [facility] [address] Department [place], [place] [phone] * (ABNORMAL) Lactate (01/19/2025 8:11 AM CDT) Pathologist [facility] Lactate 4.1(C) 0.7 - 2.0 mmol/L Comment:Critical result call ed to and read back by Yulisa CURRY on 01/19/[id number] to [id number] Blood 01/19/2025 8:11 AM CDT 01/19/2025 8:34 AM CDT Bella MCGUIRE LAB BLOOD ORDERABLES Final R esult Performing Organization Address [facility]/ZIP Co de Phone Number [facility] [address] [employer] [place], [place] [phone] * eGFR (01/19/2025 8:11 AM CDT) eGFR 82 >=60 mL/min/1. 73 m2 Comment: Interpretive Data Reference Interval Normal >/= 90 mL/min/1.73m2 Mildly decreased* 60 - 89 mL/min/1.73m2 Mildly to moderately decreased 45 - 59 mL/min/1.73m2 Moderately to severely decreased 30 - 44 mL/min/1.73m2 Severely decreased 15 - 29 mL/min/1.73m2 Kidney Failure < 15 mL/min/1.73m2 *Relative to young adult level Estimated glomerular filtration rate is determined by the 2020 CKD-EPI equation recommended by the National Kidney Foundation (A Unifying Approach to GFR Estimation: Recommendations of the NKF-ASK Task Force on Reassessing the Inclusion of Race in Diagnosing Kidney Disease, JASN 2020). The CKD-EPI equation should not be used for patients with unstable renal function and has not been validated in children and those over 70. Current interpretive data was last reviewed 2021. Blood 01/19/2025 8:11 AM CDT 01/19/2025 8:41 AM CDT us Bella MCGUIRE LAB BLOOD ORDERABLES Final R esult Performing Organization Address City/[facility]/ZIP Co de Phone Number [facility] [address] Department [employer] [place], [place] [phone] * (ABNORMAL) Pro B-type natriuretic peptide (01/19/2025 8:11 AM CDT) NT-proBNP 4,681(H) <=300 pg/mL Comment: Interpretive Comments: A. Dyspnea in Acute Care Setting All Ages: < 300 pg/ml, acute heart failure unlikely. < 50 yrs: 300 - 450 pg/ml, further investigation warranted. > 450 pg/ml, acute heart failure likely. 50 - 74 yrs: 300 - 900 pg/ml, further investigation warranted. > 900 pg/ml, acute heart failure likely . > or = 75 yrs: 450 - 1800 pg/ml, further investigation warranted. > 1800 pg/ml, acute heart failure likely. B. Non-acute Setting < 75 yrs < 125 pg/ml, rules out heart failure. > or = 125 pg/ml, further investigation warranted. > or = 75 yrs < 450 pg/ml, rules out heart failure. > or = 450 pg/ml, further investigation warranted. - Knowledge of each individual patient's NT-proBNP range may be more useful than using similar cut-points for every patient. Please note that marked elevations in NT-proBNP levels may be observed in state other than Left Ventricular Congestive Failure, including: acute coronary syndromes, right heart strain/failure (including pulmonary embolism and cor pulmonale), critical illness, renal failure, as well as advanced age. - References: 1. Dawson JL et.al. Eur Heart J. 2006:27:330-337. 2. Uche RW, Gabriella AM. J. AM Jacque Cardiol: Cardiovasc Imag. 2009;2: 216- 225. Interpretive Data Last Revised Date: 2018. Blood 01/19/2025 8:11 AM CDT 01/19/2025 8:41 AM CDT us Brayden Hopkins MD LAB BLOOD ORDERABLES Final Result [facility] [address] Department [place] [address] * (ABNORMAL) Occult blood gastric (01/19/2025 8:11 AM CDT) Occult blood, gastric Positive(A ) Negative Gastric 01/19/2025 8:1 1 AM CDT 01/19/2025 8:50 AM CDT Narrative [facility] - 01/19/2025 8:54 AM CDT Stool Fluid Detail:->Gastric Bella MCGUIRE LAB BODY FLUIDS AND STOOLS O RDERABLES Final Result Performing Organization Address [facility] Co de Phone Number [facility] [address] [facility] [place] [address] * aPTT (01/19/2025 8:11 AM CDT) aPTT 28 28 - 38 sec Comment: Interpretive Data Heparin therapeutic range: 66.0 - 100.0 seconds. Range based on correlation with therapeutic heparin activity range of 0.3 - 0.7 Units/mL. Current interpretive data was last revised on 2023. Blood 01/19/2025 8:11 AM CDT 01/19/2025 8:41 AM CDT Bella MCGUIRE LAB BLOOD ORDERABLES Final R esult Performing Organization Address [facility] Co de Phone Number [facility] [address] [facility] [place] [address] * (ABNORMAL) Protime-INR (01/19/2025 8:11 AM CDT) PT 14.6(H) 9.7 - 13.0 sec INR 1.34(H) 0.90 - 1.20 [facility] Comment: Interpretive data Oral anticoagulant therapeutic ranges: Venous thromboembolism prophylaxis or treatment: 2.0-3.0 CARDIOLOGY Standard range: 2.0-3.0 High-intensity range: 2.5-3.5 Refer to indication-specific guidelines for appropriate target ranges for prosthetic heart valve replacement. Current interpretive data was last revised on 2019. Blood 01/19/2025 8:11 AM CDT 01/19/2025 8:41 AM CDT Bella MCGUIRE LAB BLOOD ORDERABLES Final R esult Performing Organization Address City/[facility]/ZIP Co de Phone Number [facility] [address] [facility] [employer] [place], [place] [phone] * Lactate dehydrogenase (LD) (01/19/2025 8:11 AM CDT) Pathologist [facility] Lactate dehydrogenase (LDH) 177 100 - 250 Units/L Blood 01/19/2025 8:11 AM CDT 01/19/2025 8:41 AM CDT Bella MCGUIRE LAB BLOOD ORDERABLES Final R esult Performing Organization Address [facility] Co de Phone Number [facility] [address] Department [place], [place] [phone] * (ABNORMAL) Blood gas, arterial (01/19/2025 8:11 AM CDT) Pathologist [facility] pH, Art 7.43 7.35 - 7.45 PCO2, Arterial 30(L) 35 - 45 mmHg [facility] PO2, Arterial 162(H) 83 - 108 mmHg [facility] HCO3 Art (Calculated) 20 20 - 30 mmol/L [facility] BE, art -3 mmol/L [facility] Comment: Interpretive Data No Reference Range Established Current Interpretive Data was last revised on 2017 O2 Sat Art (Calculated) 100(H) 94 - 98 % [facility] Blood 01/19/2025 8:11 AM CDT 01/19/2025 8:34 AM CDT Bella MCGUIRE LAB BLOOD ORDERABLES Final R esult Performing Organization Address City/[facility] Co de Phone Number [facility] [address] [facility] [place], [place] [phone] * (ABNORMAL) Comprehensive metabolic panel (01/19/2025 8:11 AM CDT) Pathologist [facility] Sodium 138 135 - 145 mmol/L Potassium, pl 4.9 3.3 - 4.9 mmol/L [facility] Chloride 105 97 - 110 mmol/L [facility] CO2 18(L) 22 - 32 mmol/L [facility] Anion gap 15 2 - 15 mmol/L [facility] BUN 53(H) 6 - 25 mg/dL [facility] Creatinine 0.98 0.80 - 1.30 mg/dL [facility] Glucose 300(H) 70 - 199 mg/dL [facility] Comment: Interpretive Data Fasting glucose >/= 126 mg/dl is diagnostic for diabetes. Fasting is defined as no caloric intake for at least 8 hours. Fasting glucose between 100 mg/dl to 125 mg/dl is diagnostic of prediabetes. In a patient with classic symptoms of hyperglycemia or hyperglycemic crisis, a random glucose >/= 200 mg/dl is diagnostic for diabetes. In the absence of unequivocal hyperglycemia, results should be confirmed by repeat testing. The classification and Diagnosis of Diabetes Diabetes Care 202; 46: S19-S40. Current interpretive data was last revised 2022. Calcium 8.0(L) 8.5 - 10.3 mg/dL [facility] Bilirubin, total <0.2 0.1 - 1.2 mg/dL [facility] Protein, pl 5.4(L) 6.5 - 8.5 g/dL [facility] Albumin 2.5(L) 3.5 - 5.0 g/dL [facility] Alk phos 87 40 - 130 Units/L [facility] ALT 37 7 - 55 Units/L [facility] AST 22 10 - 50 Units/L [facility] Blood 01/19/2025 8:11 AM CDT 01/19/2025 8:41 AM CDT us Bella MCGUIRE LAB BLOOD ORDERABLES Final R esult [facility] [address] [place] [address] * (ABNORMAL) Hemoglobin and hematocrit (01/19/2025 8:04 AM CDT) Hgb 11.7(L) 13.0 - 17.5 g/dL Hct 37.5(L) 38.9 - 50.3 % [facility] Blood 01/19/2025 8:04 AM CDT 01/19/2025 8:04 AM CDT us Bella MCGUIRE LAB BLOOD ORDERABLES Final R esult Performing Organization Address City/[facility]/ZIP Co de Phone Number [facility] [address] Department [employer] [place], [place] [id number] * (ABNORMAL) POCT glucose (01/19/2025 7:48 AM CDT) Pathologist [facility] Glucose, POC 240(H) 70 - 199 mg/dL Comment: For Glucose values <35 mg/dl when Hematocrit is >60 mg/dl,the test may not accurately detect significant hypoglycemia,and testing in the Laboratory should be considered if clinically indicated. POC Performer [phone] [facility] Blood 01/19/2025 7:48 AM CDT 01/19/2025 7:48 AM CDT us Brayden Hopkins MD LAB POCT ORDERABLES - KATE CE Final Result Performing Organization Address [facility]/ZIP Co de Phone Number [facility] [address] [place] [place] [address] * (ABNORMAL) CBC with auto differential (01/19/2025 4:54 AM CDT) [facility] WBC 24.23(H) 3.80 - 9.90 K/cumm Hgb 11.3(L) 13.0 - 17.5 g/dL [facility] Hct 37.0(L) 38.9 - 50.3 % [facility] Plt 462(H) 150 - 400 K/cumm [facility] MPV 11.2 9.1 - 12.3 fL [facility] RBC 3.83(L) 4.30 - 5.80 M/cumm [facility] MCV 96.6(H) 81.3 - 96.4 fL [facility] MCH 29.5 27.1 - 33.3 pg [facility] MCHC 30.5(L) 32.3 - 35.7 g/dL [facility] RDW CV 14.0 11.1 - 14.9 % [facility] RDW SD 49.1(H) 35.7 - 48.1 fL [facility] NRBC abs 0.00 0.00 - 0.01 K/cumm [facility] Morphologic Screen Results confirmed by manual morphology review. [facility] Blood 01/19/2025 4:54 AM CDT 01/19/2025 5:13 AM CDT us Tucker MCGUIRE LAB BLOOD ORDERABLES Final Result [facility] [address] [place] [address] * (ABNORMAL) Manual Differential (01/19/2025 4:54 AM CDT) Differential Manual Cells Counted 118 [facility] Neutrophil abs 20.33(H) 1.50 - 6.50 K/cumm [facility] Lymphocyte abs 1.65 0.80 - 3.30 K/cumm [facility] Monocyte abs 2.06(H) 0.20 - 0.80 K/cumm [facility] Basophil abs 0.19(H) 0.00 - 0.10 K/cumm [facility] Neutrophil pct 83.9 % [facility] Comment: Interpretive Data Percent cell count reference ranges are not reported, since discordance with absolute values may lead to misinterpretation of CBC data. Current Interpretive Data was last revised on 2018. Lymphocyte pct 6.8 % [facility] Comment: Interpretive Data Percent cell count reference ranges are not reported, since discordance with absolute values may lead to misinterpretation of CBC data. Current Interpretive Data was last revised on 2018. Monocyte pct 8.5 % [facility] Comment: Interpretive Data Percent cell count reference ranges are not reported, since discordance with absolute values may lead to misinterpretation of CBC data. Current Interpretive Data was last revised on 2018. Basophil pct 0.8 % [facility] Comment: Interpretive Data Percent cell count reference ranges are not reported, since discordance with absolute values may lead to misinterpretation of CBC data. Current Interpretive Data was last revised on 2018. RBC morphology Normal [facility] Platelet estimate Increased( A) [facility] Morphology scrn See Comment [facility] Comment:PLT: Platelet morpho logy normal Blood 01/19/2025 4:54 AM CDT 01/19/2025 5:13 AM CDT us Tucker MCGUIRE LAB BLOOD ORDERABLES Final Result Performing Organization Address City/[facility]/ZIP Co de Phone Number [facility] [address] [place] [address] * eGFR (01/19/2025 12:18 AM CDT) eGFR 86 >=60 mL/min/1. 73 m2 Comment: Interpretive Data Reference Interval Normal >/= 90 mL/min/1.73m2 Mildly decreased* 60 - 89 mL/min/1.73m2 Mildly to moderately decreased 45 - 59 mL/min/1.73m2 Moderately to severely decreased 30 - 44 mL/min/1.73m2 Severely decreased 15 - 29 mL/min/1.73m2 Kidney Failure < 15 mL/min/1.73m2 *Relative to young adult level Estimated glomerular filtration rate is determined by the 2020 CKD-EPI equation recommended by the National Kidney Foundation (A Unifying Approach to GFR Estimation: Recommendations of the NKF-ASK Task Force on Reassessing the Inclusion of Race in Diagnosing Kidney Disease, JASN 2020). The CKD-EPI equation should not be used for patients with unstable renal function and has not been validated in children and those over 70. Current interpretive data was last reviewed 2021. Blood 01/19/2025 12:1 8 AM CDT 01/19/2025 12:46 AM CDT us Raiza MCGUIRE LAB BLOOD ORDERABLES Fin al Result [facility] [address] [place] [address] * (ABNORMAL) Basic metabolic panel (01/19/2025 12:18 AM CDT) [facility] Sodium 143 135 - 145 mmol/L Potassium, pl 4.2 3.3 - 4.9 mmol/L [facility] Chloride 100 97 - 110 mmol/L [facility] CO2 24 22 - 32 mmol/L [facility] Anion gap 19(H) 2 - 15 mmol/L [facility] BUN 37(H) 6 - 25 mg/dL [facility] Creatinine 0.95 0.80 - 1.30 mg/dL [facility] Glucose 198 70 - 199 mg/dL [facility] Comment: Interpretive Data Fasting glucose >/= 126 mg/dl is diagnostic for diabetes. Fasting is defined as no caloric intake for at least 8 hours. Fasting glucose between 100 mg/dl to 125 mg/dl is diagnostic of prediabetes. In a patient with classic symptoms of hyperglycemia or hyperglycemic crisis, a random glucose >/= 200 mg/dl is diagnostic for diabetes. In the absence of unequivocal hyperglycemia, results should be confirmed by repeat testing. The classification and Diagnosis of Diabetes Diabetes Care 2021; 46: S19-S40. Current interpretive data was last revised 2022. Calcium 8.4(L) 8.5 - 10.3 mg/dL [facility] Blood 01/19/2025 12:1 8 AM CDT 01/19/2025 12:46 AM CDT Desire Ghotra NP LAB BLOOD ORDERABLES Fin al Result [facility] [address] [place] [address] * (ABNORMAL) Hemoglobin A1c (12/17/2024 12:55 PM CDT) [facility] Hgb A1C 6.4(H) 4.0 - 5.6 % Estimated Average Glucose 137 mg/dL [facility] Comment: The ADA recommends reporting an estimated Average Glucose (eAG) with all Hemoglobin A1c results using the equation derived from a study of 507 normal and diabetic adults. Minority populations were underrepresented and children were not included. (Diabetes Care 31:6890-0335, 2008). The eAG is not equivalent to a fasting glucose. Blood 12/17/2024 12:5 5 PM CDT 12/17/2024 1:09 PM CDT us Carlyn Minaya MD LAB BLOOD ORDERABLES Final Result [facility] [address] [place] [address] * (ABNORMAL) Lipid panel (12/17/2024 12:55 PM CDT) Cholesterol 139 30 - 199 mg/dL Comment: Interpretive Data Ages < or = 19 years Acceptable: <170 mg/dL Borderline high: 170-199 mg/dL High: >or= 200 mg/dL Ages > or = 20 years Desirable: <200 mg/dL Borderline high: 200-239 mg/dL High: >or= 240 mg/dL Literature References: 1. Expert Panel on Integrated Guidelines for Cardiovascular Health and Risk Reduction in Children and Adolescents. Pediatrics 2011;128:S213 2. NCEP Expert Panel. Circulation 2004;110:227 Current Interpretive Data was last revised on 2018. Triglycerides 125 <=149 mg/dL [facility] Comment: Interpretive Data Ages < or = 9 years Acceptable: <75 mg/dL Borderline high: 75-99 mg/dL High: >or= 100 mg/dL Ages 10 to 20 years Acceptable: <90 mg/dL Borderline high: 90-129 mg/dL High: >or= 130 mg/dL Ages > or = 20 years Desirable: <150 mg/dL Borderline high: 150-199 mg/dL High: 200-499 mg/dL Very high: >or= 499 mg/dL Literature References: 1. Expert Panel on Integrated Guidelines for Cardiovascular Health and Risk Reduction in Children and Adolescents. Pediatrics 2011;128:S213 2. NCEP Expert Panel. Circulation 2004;110:227 Current Interpretive Data was last revised on 2018. HDL 38(L) >=40 mg/dL [facility] Comment: Interpretive Data Ages < or = 19 years Acceptable: >45 mg/dL Borderline low: 40-45 mg/dL Low: <40 mg/dL Ages > or = 20 years Desirable: >or= 60 mg/dL Low: <40 mg/dL Literature References: 1. Expert Panel on Integrated Guidelines for Cardiovascular Health and Risk Reduction in Children and Adolescents. Pediatrics 2011;128:S213 2. NCEP Expert Panel. Circulation 2004;110:227 Current Interpretive Data was last revised on 2018. LDL, calculated 79 <=129 mg/dL [facility] Comment: Interpretive Data Ages < or = 19 years Acceptable: <110 mg/dL Borderline high: 110-129 mg/dL High: >or= 130 mg/dL Ages > or = 20 years Optimal: <100 mg/dL Near optimal: 100-129 mg/dL Borderline high: 130-159 mg/dL High: >160 mg/dL Calculated using the Richie LDL-C estimating equation. This equation was implemented on 2024. Prior to this date LDL-C was estimated using the Friedewald equation. Literature References: 1. Expert Panel on Integrated Guidelines for Cardiovascular Health and Risk Reduction in Children and Adolescents. Pediatrics 2011;128:S213 2. NCEP Expert Panel. Circulation 2004;110:227 3. Richie Robles et al. DEMETRIUS Cardiol. 2019February 05;5(5):540-548. doi: 10.1001/jamacardio.2020.0013 Current Interpretive Data was last revised on 2024. Non-HDL Cholesterol 101 mg/dL [facility] Comment: Interpretive Data Ages < or = 19 years Acceptable: <120 mg/dL Borderline high: 120-144 mg/dL High: >145 mg/dL Ages > or = 20 years When triglycerides are >200 mg/dL, Non-HDL cholesterol is a secondary target of therapy with treatment goals that are 30 mg/dL greater than the LDL cholesterol target. Literature References: 1. Expert Panel on Integrated Guidelines for Cardiovascular Health and Risk Reduction in Children and Adolescents. Pediatrics 2011;128:S213 2. NCEP Expert Panel. Circulation 2004;110:227 Current Interpretive Data was last revised on 2018. Chol/HDL ratio 4 [facility] Blood 12/17/2024 12:5 5 PM CDT 12/17/2024 1:09 PM CDT us Carlyn Minaya MD LAB BLOOD ORDERABLES Final Result [facility] [address] [place] [address] * CT Chest WO Contrast F/U Lung Screen Protocol (12/06/2022 8:05 AM BOBBIN HANDLER) Anatomical Region Laterality Modality Chest N/A Computed Tomogra phy 12/07/2022 7:38 AM BOBBIN HANDLER Narrative 12/07/2022 7:48 AM BOBBIN HANDLER EXAM DESCRIPTION: CT CHEST WO CONTRAST F/U LUNG SCREEN PROTOCOL REASON FOR STUDY: Screening CT of the chest in a current smoker with a 60 pack year smoking history. Additional history: Coronary artery disease and diabetes.. TECHNIQUE: Low dose CT scan of the chest was performed without intravenous contrast using helical scanning technique. The exam extends from the lung apices through the lung bases. Automatic exposure control was used as a dose optimization technique. NOTE: This study was performed for the specific purposes of lung cancer screening and is not an alternative to diagnostic chest CT. RADIATION DOSE: CT dose index volume (CTDIvol) = 1.87. MGy COMPARISON: 05/19/2022. FINDINGS: SMOKING RELATED LUNG DISEASE: There is a background of mild pulmonary emphysema. There is pleuroparenchymal scarring at the apices, stable from prior examination. There is mild bronchial wall thickening as can be seen with chronic bronchitis. Borderline bronchiectasis demonstrated, similar to the prior examination. LUNG NODULES: Nodular opacities are demonstrated associated with pleuroparenchymal scarring at the apices, stable from previous examination. 6 mm nodule in the posterior left upper lobe on axial image number 49 of the current study is stable from prior examination. Ground-glass opacity on image number 52, associated with convergence of bronchovascular structures in the posterior left upper lobe, stable. 3 mm subpleural nodule posterolateral right upper lobe image 71, stable. There are additional tiny sub 4 mm noncalcified pulmonary nodules bilaterally. No new suspicious nodule present within either lung. CORONARY ARTERY CALCIFICATION: Present OTHER: No pneumonic consolidation. No effusion or pneumothorax. Minimal secretions in the left mainstem bronchus. The visualized thyroid gland is unremarkable. Lymph node at the AP window on image number 106 measures 9 mm in short axis dimension, stable from prior study. There are a few postinflammatory calcifications. No new hilar adenopathy. The esophagus is unremarkable. Distal paraesophageal node on image number 235 is within normal limits in size. The heart is normal in size without a pericardial effusion. The thoracic aorta is normal in caliber. Atherosclerotic changes are noted. There are bilateral axillary lymph nodes, measuring up to 1 cm in short axis dimension, stable. The right axilla is partially excluded on this examination. The chest wall is unremarkable. The visualized upper abdomen reveals diverticulosis. There are atherosclerotic vascular calcifications. Mild thickening of the left adrenal gland, maintaining adreniform shape suggesting hyperplasia. There is no acute osseous abnormality. Thoracic spondylosis. IMPRESSION: 1. Interval stability of previously documented pulmonary nodules. No new suspicious nodule in either lung. 2. Borderline enlarged AP window node and borderline enlarged axillary nodes, stable from prior examination. 3. Extensive coronary artery calcifications. 4. Mild pulmonary emphysema. Bronchial wall thickening as can be seen with chronic bronchitis. Borderline bronchiectasis, stable. Lung-RADS v1.1 category 2: Benign appearance or behavior. Recommendation: Low dose Screening CT of chest in 12 months. THIS IS AN ELECTRONICALLY VERIFIED FINAL REPORT 12/07/2022 7:48 AM - Electronically signed by Shannon Gardiner M.D. TW: TW Report ID: [id number] Reading Location: [place] [address] Procedure Note Shannon Gardiner MD - 12/07/2022 EXAM DESCRIPTION: CT CHEST WO CONTRAST F/U LUNG SCREEN PROTOCOL REASON FOR STUDY: Screening CT of the chest in a current smoker with a60 pack year smoking history. Additional history: Coronary artery disease and diabetes.. TECHNIQUE: Low dose CT scan of the chest was performed without intravenous contrast using helical scanning technique. The exam extends from the lung apices through the lung bases. Automatic exposure control was used as adose optimization technique. NOTE: This study was performed for the specific purposes of lung cancer screening and is not an alternative to diagnostic chest CT. RADIATION DOSE: CT dose index volume (CTDIvol) = 1.87. MGy COMPARISON: 05/19/2022. FINDINGS: SMOKING RELATED LUNG DISEASE: There is a background of mild pulmonary emphysema. There is pleuroparenchymal scarring at the apices, stable from prior examination. There is mild bronchial wall thickening as can be seen with chronic bronchitis. Borderline bronchiectasis demonstrated, similarto the prior examination. LUNG NODULES: Nodular opacities are demonstrated associated with pleuroparenchymal scarring at the apices, stable from previousexamination. 6 mm nodule in the posterior left upper lobe on axial image number 49 ofthe current study is stable from prior examination. Ground-glass opacity on image number 52, associated with convergence of bronchovascular structures in the posterior left upper lobe, stable. 3 mm subpleural nodule posterolateral right upper lobe image 71, stable. There are additional tiny sub 4 mm noncalcified pulmonary nodulesbilaterally. No new suspicious nodule present within either lung. CORONARY ARTERY CALCIFICATION: Present OTHER: No pneumonic consolidation. No effusion or pneumothorax.Minimal secretions in the left mainstem bronchus. The visualized thyroid gland is unremarkable. Lymph node at the AP window on image number 106 measures 9mm in short axis dimension, stable from prior study. There are a few postinflammatory calcifications. No new hilar adenopathy. The esophagusis unremarkable. Distal paraesophageal node on image number 235 is withinnormal limits in size. The heart is normal in size without a pericardialeffusion. The thoracic aorta is normal in caliber. Atherosclerotic changes arenoted. There are bilateral axillary lymph nodes, measuring up to 1 cm in shortaxis dimension, stable. The right axilla is partially excluded on this examination. The chest wall is unremarkable. The visualized upperabdomen reveals diverticulosis. There are atherosclerotic vascularcalcifications. Mild thickening of the left adrenal gland, maintaining adreniform shape suggesting hyperplasia. There is no acute osseous abnormality. Thoracic spondylosis. IMPRESSION: 1. Interval stability of previously documented pulmonary nodules. Nonew suspicious nodule in either lung. 2. Borderline enlarged AP window node and borderline enlarged axillary nodes, stable from prior examination. 3. Extensive coronary artery calcifications. 4. Mild pulmonary emphysema. Bronchial wall thickening as can be seenwith chronic bronchitis. Borderline bronchiectasis, stable. Lung-RADS v1.1 category 2: Benign appearance or behavior. Recommendation: Low dose Screening CT of chest in 12 months. THIS IS AN ELECTRONICALLY VERIFIED FINAL REPORT 12/07/2022 7:48 AM - Electronically signed by Shannon Gardiner M.D. TW: TW Report ID: [id number] Reading Location: [place] [address] Chacha Velazquez MD IMG CT PROCEDURES Final Resul t from Last 3 Months or Most Recently Relevant to Health Maintenance Insurance [employer] MEDICARE ADVANTAGE Advance Directives For more information, please contact: [phone] * Full Code (Latest Code Status on File) Date Activated Date Inactivated Comments 02/18/2025 7:59 PM 03/11/2025 9:12 PM * Full Code Date Activated Date Inactivated Comments 01/15/2025 2:57 PM 01/25/2025 3:50 PM * Full Code Date Activated Date Inactivated Comments 12/22/2024 11:55 AM 12/31/2024 6:37 PM * Full Code Date Activated Date Inactivated Comments 11/10/2024 11:01 AM 11/10/2024 5:45 PM Care Teams Production Control Supervisor Relationship Specialty Start Date End Date Radha Epps, JUANA [address] [facility] [place] [address] [address] PCP - General Nurse Practitioner 12/10/24 Richi Healy MD [address] [facility] [address] [place] [address] [place] [address] Referring Physician Cardiology 11/13/24 Carlyn Minaya MD [address] [facility] [address] [place] [address] Consulting Physician Cardiothoracic Surgery 11/13/24
--- OUTSIDE RECORDS SUMMARY | 2025-04-20 22:44 | XMS_ITS | Encounter Summary ---
Author Organization [facility] Healthcare Address [address] [place] [address] Care Team Providers Care Charging Plug Placer Name Role Phone Richi Healy MD Unavailable Carlyn Minaya MD Unavailable [phone] Radha Epps NP Primary Care Provider Encounter Details Date Type Department Care Team (Latest Contact Info) Description 04/20/2025 9:05 AM CDT Hospital Encounter [facility] [address] [place] [address] Chronic combined systolic and diastolic heart failure (HCC) Social History Tobacco Use Types Packs/Day Years Used Date Smoking Tobacco: Former Cigarettes 1.3 51.1 1 974 - 11/09/2024 [facility] Utilities Answer Date Recorded In the past 12 months has [employer], gas, oil, or water [employer] threatened to shut off services in your home? No 02/19/2025 Social Connection and Isolation Panel [NHANES] A nswer Date Recorded In a typical week, how many times do you talk on the phone with family, friends, or neighbors? Twice a week 02/19/2025 How often do you get together with friends or re latives? Twice a week 02/19/2025 How often do you attend nondenominational or catholic serv ices? Never 02/19/2025 Do you belong to any clubs o r organizations such as nondenominational groups, unions, fraternal or athletic groups, or [...] any time in the past 12 m [facility], were you homeless or living in a long term (including now)? No 02/19/2025 Personal Safety Answer Date Recorded Have you ever been in or are you currently in a harmful physical or emotional relationship or is someone making you feel afraid or unsafe? Patient unable to answer 02/18/2025 Sex and Gender Information Value Date Recorded Sex Assigned at Not on file Legal Sex Male 10:18 PM [employer]DER [employer] Gender Identity Not on file Sexual Orientation Not on file documented as of this encounter Plan of Treatment Pending Results Name Type Priority Associated Diagnoses Date /Time XR Chest PA Lateral 2 Views Imaging Schedule Routine, Read Routine (OP Routine) Chronic combined systolic and diastolic heart failure (HCC) 04/20/2025 9:20 AM CDT Scheduled Orders Name Type Priority Associated Diagnoses Orde r Schedule XR Chest PA Lateral 2 Views Imaging Schedule Routine, Read Routine (OP Routine) Chronic combined systolic and diastolic heart failure (HCC) Once for 1 Occurrences starting 04/20/2025 until 04/20/2025 documented as of this encounter Visit Diagnoses Diagnosis Chronic combined systolic and diastolic heart failure (HCC) Chronic combined systolic and diastolic heart failure documented in this encounter Care Teams Charging Plug Placer Relationship Specialty Start Date End Date Radha Epps NP [address] [place] [address] [address] PCP - General Nurse Practitioner 12/10/24 Richi Healy MD [address] [place] [address] [place] [id number] Referring Physician Cardiology 11/13/24 Carlyn Minaya MD [address] [facility] [address] [place] [address] Consulting Physician Cardiothoracic Surgery 11/13/24 documented as of this encounter
--- OUTSIDE RECORDS SUMMARY | 2025-04-20 22:44 | XMS_ITS | Data Portability ---
Author Organization [place] - [place] [facility] Address [address] [place] [address] Care Team Providers Care [place] Former Hand Name Role Phone CHACHA JERONIMO Primary Care Provider RADHA EPPS Primary Care Provider Unavailabl e Assessment Encounter Date Assessment Date Assessment LastModified by Organization Details LastModified Time 12/05/2024 12/05/2024 Coronary artery disease : Patient has multivessel CAD involving distal left main, proximal LAD with heavily calcified vessel. He has been evaluated by Cardiac surgery but currently wishes for a 2nd opinion with the pattie coverage specialist rn. We will refer him in an expedited fashion to Dr. Velasquez with [facility]. He will continue dual antiplatelet therapy with [...] close interval follow-up in 4 weeks' time. [email or web address] Not available 12/05/2024 14:11:32 01/30/2025 01/30/2025 CAD: [...] bleed : He will be establishing with Ms. Epps soon. We will prescribe PPI b.i.d. till establishing with PCP. May benefit from GI evaluation to document resolution of ulcer with repeat EGD but will defer to PCP regarding the same. Plan follow-up 4 weeks with labs prior and p.r.n.. On behalf of the Cardiovascular Services at [facility], we appreciate the opportunity to participate in the care of your patient. Please feel free to reach out to us for any questions regarding your patient's cardiac care. Richi Healy MD, [facility] Cardiology [email or web address] Not available 01/30/2025 16:14:06 Plan of Treatment Reminders Order Date Submit Date Provider Last Modified By Organization Details Last Modified Time Details Appointments ANY 15 2024 10:30A Margaret EPPS, [facility]- Not available Not available Not available Lab CBC 2024 025 SARITHA [facility], [address] [facility], [place], [address], 04/13/2025 15:05:29 CMP, serum or plasma 2024 025 SARITHA [facility], [address] [facility], [facility], [place], [address], 04/13/2025 15:05:28 pro BNP (pro B-type natriuret ic peptide), serum or plasma 2024 025 SARITHA [facility], [address] [facility], [place], [address], 04/13/2025 15:05:29 CBC 2024 025 SARITHA [facility], [address] [facility], [place], [address], 04/10/2025 08:17:48 lipid panel, serum 2024 025 SARITHA [facility], [address] [facility], [facility], [place], [address], 04/10/2025 08:17:47 CMP, serum or plasma 2024 025 SARITHA [facility], [address] [facility], [place], [address], 04/10/2025 08:17:46 TSH, serum, reflex free T4 2024 025 INTERFACE [facility], [address] [facility], [place], [address], 04/10/2025 08:17:48 CBC 2024 025 [facility] (Lab), [address] [place], [address], 03/12/2025 17:33:59 CMP, serum or plasma 2024 025 [facility] (Lab), [address] [place], [address], 03/12/2025 17:33:59 Referral intervent ional cardiolog y referral 2024 025 KRISHNA Velasquez MD, [facility], [address], [place], [address], 12/05/2024 10:46:17 Procedures None recorded. Surgeries None recorded. Imaging XR, chest, 2 view 2024 025 [facility], [address] [facility] [place], [address], 04/13/2025 15:31:38 US, echocardi ogram, transthor acic, limited 2024 025 [email or web address] [facility], [address] [facility] [place], [address], 04/16/2025 11:55:18 Medication Orders Verquvo 2.5 mg tablet 2024 025 COOL[place]GE [facility], [address] [place] [address], [address], [place], [place], [id number], 04/13/2025 15:05:25 amiodaron e 200 mg tablet 2024 025 [place] [facility], [address] [place] [address], [address], [place], [place], [id number], 04/13/2025 15:06:42 furosemid e 40 mg tablet 2024 025 [place] [facility], [address], [address], [place], [place], [id number], 04/13/2025 15:05:25 Verquvo 2.5 mg tablet 2024 025 [place] [facility], [address], [address], [place], [place], [id number], 03/30/2025 10:16:03 amiodaron e 400 mg tablet 2024 025 [place] [id number], [address], [place], [place], [id number], 04/13/2025 16:17:09 pantopraz ole 40 mg tablet,de layed release 2024 025 SARITHA [facility], [address] [place] [address], [address], [place], [place], [id number], 01/30/2025 14:37:32 Verquvo 2.5 mg tablet 2024 025 SARITHA [facility], [address] [place] [address], [address], [place], [place], [id number], 03/30/2025 10:00:20 Patient TargetsNo targets recorded. Patient Instructions Encounter Date Encounter Id Patient Instructions Last Modified By Organization Details Last Modified Time 12/05/2024 [id number] A healthy lifestyle: care instructions [email or web address] Not available 12/05/2024 10:27:37 01/30/2025 [id number] A healthy lifestyle: care instructions [email or web address] Not available 01/30/2025 16:14:39 03/30/2025 [id number] heart failure: care instructions [email or web address] Not available 03/30/2025 10:15:58 04/13/2025 [id number] Change Lasix fro m 40 mg twice a day to 40 mg once a day Change Amiodarone from 400 mg once a day to 200 mg once a day Chest X ray and echocardiogram at [facility] Lab work in 1 week Follow up in 2 weeks Call me for update on symptoms on Not available 04/13/2025 15:03:13 Reason for Referral Interventional Cardiology Re ferral for Coronary arteriosclerosis Referring Physician: Richi Healy, Cardiology, Encounter Date: 12/05/2024 Diabetic Ophthalmology Refer ral for Well controlled type 2 diabetes mellitus Referring Physician: Radha Epps, Family Medicine, Encounter Date: 04/09/2025 Results Created Date Observation Date Name Description Value Unit Range Abnormal Flag Note LastModifiedBy Organization Detail LastModifiedTime 04/09/2004/10/2025 TSH+F REE T4 TSH 8.310 uIU/m L 0.450- 4.500 above high normal Not Available [facility] ([facility]) [address], [place], [address], 04/10/2025 08:17:45 04/09/20 25 04/10/2025 TSH+F REE T4 T4,free(dire ct) 1.31 NG/dL 0.82-1 .77 Not Available [facility] ([facility]) [address] [place], [address], 04/10/2025 08:17:45 04/09/2004/09/2025 COMP. METAB OLIC PANEL (14) interpretati on: COMMEN T GFR estim ate at the follo wing level for >or=3 month s is class ified as follo ws: GFR WITH KIDNE Y DAMAG E WITHO UT KIDNE Y DAMAG E >or=9 0 Stage 1 Adelaida l 60-89 Stage 2 Decr eased GFR 30-59 Stage 3 Stage 3 15-29 Stage 4 Stage 4 <15 (or dialy sis) Stage 5 Stage 5 Estim ated GFR will over estim ate true GFR if serum creat inine is risin g as in acute renal failu re and will under estim ate true GFR if serum creat inine is decli oneal as in resol ving acute renal failu re. Addit ional infor jareth lei may be found at [email or web address] org. Not Available [facility] ([facility]) [address] [place], [address], 04/10/2025 08:17:46 04/09/2004/10/2025 COMP. METAB OLIC PANEL (14) glucose 122 mg/dL 70-99 above high normal Not Available [facility] ([facility]) [address] [place], [address], 04/10/2025 08:17:46 04/09/2004/10/2025 COMP. METAB OLIC PANEL (14) BUN 31 mg/dL 8-27 above high normal Not Available [facility] ([facility]) [address] [place], [address], 04/10/2025 08:17:46 04/09/20 25 04/10/2025 COMP. METAB OLIC PANEL (14) creatinine 1.70 mg/dL 0.76-1 .27 above high normal Not Available [facility] ([facility]) [address] [place], [address], 04/10/2025 08:17:46 04/09/20 25 04/10/2025 COMP. METAB OLIC PANEL (14) eGFR 42 mL/mi n/1.7 3 >59 below low normal Not Available [facility] ([facility]) [address] [facility], [place], [address], 04/10/2025 08:17:46 04/09/20 25 04/10/2025 COMP. METAB OLIC PANEL (14) BUN/creatini ne ratio 18 10-24 Not Available [facility] ([facility]) [address] [facility], [place], [address], 04/10/2025 08:17:46 04/09/20 25 04/10/2025 COMP. METAB OLIC PANEL (14) sodium 144 mmol/ L 134-14 4 Not Available [facility] ([facility]) [address] [place], [address], 04/10/2025 08:17:46 04/09/20 25 04/10/2025 COMP. METAB OLIC PANEL (14) potassium 4.3 mmol/ L 3.5-5. 2 Not Available [facility] ([facility]) [address] [place], [address], 04/10/2025 08:17:46 04/09/20 25 04/10/2025 COMP. METAB OLIC PANEL (14) chloride 93 mmol/ L 96-106 below low normal Not Available [facility] ([facility]) [address] [place], [address], 04/10/2025 08:17:46 04/09/20 25 04/10/2025 COMP. METAB OLIC PANEL (14) carbon dioxide, total 24 mmol/ L 20-29 Not Available [facility] ([facility]) [address] [facility], [place], [address], 04/10/2025 08:17:46 04/09/20 25 04/10/2025 COMP. METAB OLIC PANEL (14) calcium 8.2 mg/dL 8.6-10 .2 below low normal Not Available [facility] ([facility]) [address] [facility] [place], [address], 04/10/2025 08:17:46 04/09/20 25 04/10/2025 COMP. METAB OLIC PANEL (14) protein, total 6.9 g/dL 6.0-8. 5 Not Available [facility] ([facility]) [address] [facility], [place], [address], 04/10/2025 08:17:46 04/09/20 25 04/10/2025 COMP. METAB OLIC PANEL (14) albumin 3.6 g/dL 3.8-4. 8 below low normal Not Available [facility] ([facility]) [address] [place] [place], [address], 04/10/2025 08:17:46 04/09/20 25 04/10/2025 COMP. METAB OLIC PANEL (14) globulin, total 3.3 g/dL 1.5-4. 5 Not Available [facility] ([facility]) [address] [place] [place], [address], 04/10/2025 08:17:46 04/09/20 25 04/10/2025 COMP. METAB OLIC PANEL (14) bilirubin, total 0.4 mg/dL 0.0-1. 2 Not Available [facility] ([facility]) [address] [place] [place], [address], 04/10/2025 08:17:46 04/09/20 25 04/10/2025 COMP. METAB OLIC PANEL (14) alkaline phosphatase 110 IU/L 44-121 Not Available [facility] ([facility]) [address] [place], [address], 04/10/2025 08:17:46 04/09/20 25 04/10/2025 COMP. METAB OLIC PANEL (14) AST (SGOT) 17 IU/L 0-40 Not Available [facility] ([facility]) [address] [place], [address], 04/10/2025 08:17:46 04/09/20 25 04/10/2025 COMP. METAB OLIC PANEL (14) ALT (SGPT) 14 IU/L 0-44 Not Available [facility] ([facility]) [address] [place], [address], 04/10/2025 08:17:46 04/09/20 25 04/10/2025 LIPID PROFI LE cholesterol, total 114 mg/dL 100-19 9 Not Available [facility] ([facility]) [address] [place], [address], 04/10/2025 08:17:47 04/09/20 25 04/10/2025 LIPID PROFI LE triglyceride s 111 mg/dL 0-149 Not Available [facility] ([facility]) [address] [place], [address], 04/10/2025 08:17:47 04/09/20 25 04/10/2025 LIPID PROFI LE HDL cholesterol 35 mg/dL >39 below low normal Not Available [facility] ([facility]) [address] [place], [address], 04/10/2025 08:17:47 04/09/20 25 04/10/2025 LIPID PROFI LE VLDL cholesterol trey 21 mg/dL 5-40 Not Available [facility] ([facility]) [address] [place], [address], 04/10/2025 08:17:47 04/09/20 25 04/10/2025 LIPID PROFI LE LDL chol calc ([facility]) 58 mg/dL 0-99 Not Available [facility] ([facility]) [address] [facility], [place], [address], 04/10/2025 08:17:47 04/09/2004/10/2025 CBC, PLATE LET, NO DIFFE RENTI AL WBC 19.7 x10e3 /uL 3.4-10 .8 above high normal Not Available [facility] ([facility]) [address] [place], [address], 04/10/2025 08:17:48 04/09/2004/10/2025 CBC, PLATE LET, NO DIFFE RENTI AL RBC 4.34 x10e6 /uL 4.14-5 .80 Not Available [facility] ([facility]) [address] [place], [address], 04/10/2025 08:17:48 04/09/2004/10/2025 CBC, PLATE LET, NO DIFFE RENTI AL hemoglobin 12.1 g/dL 13.0-1 7.7 below low normal Not Available [facility] ([facility]) [address] [place], [address], 04/10/2025 08:17:48 04/09/2004/10/2025 CBC, PLATE LET, NO DIFFE RENTI AL hematocrit 39.8 % 37.5-5 1.0 Not Available [facility] ([facility]) [address] [place], [address], 04/10/2025 08:17:48 04/09/2004/10/2025 CBC, PLATE LET, NO DIFFE RENTI AL MCV 92 fL 79-97 Not Available [facility] ([facility]) [address] [place], [address], 04/10/2025 08:17:48 04/09/2004/10/2025 CBC, PLATE LET, NO DIFFE RENTI AL MCH 27.9 pg 26.6-3 3.0 Not Available [facility] ([facility]) [address] [place], [address], 04/10/2025 08:17:48 04/09/20 25 04/10/2025 CBC, PLATE LET, NO DIFFE RENTI AL MCHC 30.4 g/dL 31.5-3 5.7 below low normal Not Available [facility] ([facility]) [address] [place], [address], 04/10/2025 08:17:48 04/09/20 25 04/10/2025 CBC, PLATE LET, NO DIFFE RENTI AL RDW 15.0 % 11.6-1 5.4 Not Available [facility] ([facility]) [address] [place], [address], 04/10/2025 08:17:48 04/09/20 25 04/10/2025 CBC, PLATE LET, NO DIFFE RENTI AL platelets 432 x10e3 /uL 150-45 0 Not Available [facility] ([facility]) [address] [place], [address], 04/10/2025 08:17:48 11/12/19 25 mobil e cardi ac telem etry (PROC ) No observ ation record ed. [email or web address] Not Available 2024 10:02:08 11/13/19 25 US, echoc ardio gram, trans thora cic, compl ete, w/ color flow No observ ation record ed. chasedo [address] [place], [address], 11/13/2024 10:03:29 03/30/20 25 US, echoc ardio gram, trans thora cic, compl ete, w/ color flow No observ ation record ed. chasedo [address] [place], [address], 03/30/2025 10:18:54 04/09/20 25 03/09/2025 CT, chest , w/o contr ast No observ ation record ed. [email or web address] Not Available 12/2024 11:41:01 Result Notes None recorded. Problems Name Problem SNOMED Code Status Onset Date Resolution Date Notes Provider Name and Address Organization Details Recorded Time Type 2 diabetes mellitus 14840869 Active 2017 Chacha Jeronimo MD Attn: Augustine hamm,[address] [facility], [place], [address], [place] [facility] 2 10:54:26 Essential hypertens ion 59357162 Active 2017 Chacha Jeronimo MD Attn: Augustine hamm,[address] [facility], [place], [address], [place] [facility] 2 10:54:26 Hyperlipi demia 69877233 Active 2017 Chacha Jeronimo MD Attn: Augustine hamm,[address] [facility], [place], [address], [place] [facility] 2 10:54:26 Coronary arteriosc lerosis 71890226 Active 2017 s/p stent 06/2000 Chacha Jeronimo MD Attn: Augustine hamm,[address] [place] [address], [place], [address], [place] [facility] 2 10:54:26 Smoker 69489114 Active 2017 LDCT 12/28-need 1 yr f/u ct Chacha Jeronimo MD Attn: Cesarwaldemar hamm,[address] [facility], [place], [address], [place] [facility] 3 11:58:35 Liver function tests outside reference range 403501035 Active 2017 Chacha Jeronimo MD Attn: Cesarwaldemar hamm,[address] [facility], [place], [address], [place] [facility] 2 10:54:25 Leukocyto sis 660282897 Active 06/05/ 2018 sees hematolog ist -s/p BM biopsy -neg Chacha Jeronimo MD Attn: Augustine hamm,[address] 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 534964457 Active 2020 Chacha Jeronimo MD Attn: Augustine g,[address] [facility], [place], [address], [place] [facility] 2 10:54:25 CT of chest abnormal 112201431968 [address] 12/28- repeat in 1 year Chacha Jeronimo MD Attn: Augustine hamm,[address] [facility], [place], [address], [place] [facility] 3 09:14:38 History of hip fracture 171878011 Active 2022 of L/hip following fall 06/30 -s/p sx ORIF Chacha Jeronimo MD Attn: Augustine hamm,[address] [facility], [place], [address], [place] [facility] 3 14:19:41 Lesion of skin of nose 601770579938 45161 Active 2023 -basal cell cancer -sees derm Chacha Jeronimo MD Attn: Accountwaldemar g,[address] [facility], [place], [address], [place] [facility] 4 13:26:52 Chronic combined systolic and diastolic heart failure 605894666448 100 Active 2023 Richi Healy MD Attn: Accountin g,[address] [facility], [place], [address], [place] [facility] 4 10:39:43 Notes:Some problems listed i n Documents: #[id number], #[id number] could not be added to this patient's chart. Please review these documents and add these problems to the patient's chart manually as needed. Problem Notes None recorded. Procedures Surgical History Date Name Laterality Status Provider Name and Address Organization Details Recorded Time 5 coronary artery bypass grafts x 3 completed Delia Cast LPN [facility] 01/30/2025 14:17:14 3 Other completed Esther Lewis MA [facility] 07/24/2023 14:10:24 6 Colonoscopy completed Chacha Jeronimo MD Attn: Accounting,[address] [facility], [place], [address], [facility] 01/15/2018 09:14:43 0 Angioplasty With Stent completed Daly [facility] [place] 01/07/2018 14:41:28 Vasectomy completed [facility] 01/07 14:39:56 Imaging Results None recorded. Procedure Notes None recorded. Medical Equipment None Reported. Allergies No known drug allergies Medications Name Sig Start Date Stop Date Status Note LastModified by Organization Details LastModified Time losartan 50 mg tablet Take 1 tablet every day by oral route. 2024 active Not Available Not Available Not Avai lable furosemid e 40 mg tablet Take 1 tablet every day by oral route. 2024 active Not Available Not Available Not Avai lable atorvasta tin 40 mg tablet TAKE 1 TABLET BY MOUTH DAILY 01/30 completed Not Available Not Available Not Available metformin 500 mg tablet TAKE 1 TABLET BY MOUTH ONCE DAILY 2024 active Not Available Not Available Not Avai lable atorvasta tin 80 mg tablet Take 1 tablet every day by oral route. 2024 active Not Available Not Available Not Avai lable carvedilo l 25 mg tablet TAKE 1 TABLET BY MOUTH TWICE DAILY 01/26 completed Not Available Not Available Not Available clonidine 0.2 mg/24hr TD tdsy Apply 1 patch 3 times a day by transder mal route. 04/09 completed Not Available Not Available Not Available azithromy ruth 250 mg tablet TAKE 2 TABLETS (500 MG) BY ORAL ROUTE ONCE DAILY FOR 1 DAY THEN 1 TABLET (250 MG) BY ORAL ROUTE ONCE DAILY FOR 4 DAYS 07/28 completed Not Available Not Available Not Available amiodaron e 200 mg tablet Take 1 tablet every day by oral route. 2024 active Not Available Not Available Not Avai lable metoprolo l succinate ER 50 mg tablet,ex tended release 24 hr TAKE 1 TABLET BY MOUTH DAILY 2024 active Not Available Not Available Not Avai lable Plavix 75 mg tablet Take 1 tablet every day by oral route. 01/30 completed Not Available Not Available Not Available aspirin 81 mg tablet,de layed release Take 1 tablet every day by oral route. active Not Available Not Available No t Available tramadol 50 mg tablet po 1 tab daily prn for pain - pt takes occasion ally 12/12 completed Not Available Not Available Not Available spironola ctone 25 mg tablet TAKE 1 TABLET BY MOUTH DAILY active Not Available Not Available No t Available pantopraz ole 20 mg tablet,de layed release active Not Available Not Available Not Available clonidine HCl 0.2 mg tablet TAKE 2 TABLETS BY MOUTH 2 TIMES DAILY 01/30 completed 1 tab tid Not Available Not Available Not Available amiodaron e 400 mg tablet Take 1 tablet every day by oral route. 04/13 completed Insuranc e only paying for 200mg tablets. Pt takign 2 tablets daily. Not Available Not Available Not Available amlodipin e 5 mg-benaze pril 20 mg capsule Take 2 capsule( s) every day by oral route. 07/08 completed needs separate due to insuranc e Not Available Not Available Not Available amlodipin e 10 mg tablet TAKE 1 TABLET BY MOUTH DAILY 01/30 completed Not Available Not Available Not Available cephalexi n 500 mg capsule 04/22 completed Not Available Not Available Not Available pantopraz ole 40 mg tablet,de layed release TAKE 1 TABLET BY MOUTH TWICE DAILY active Not Available Not Available No t Available simvastat in 20 mg tablet TAKE 1 TABLET BY MOUTH ONCE DAILY 12/19 completed Not Available Not Available Not Available metformin 1,000 mg tablet TAKE 1 TABLET BY MOUTH once DAILY WITH FOOD 04/08 completed pt to lower 1/2 tab daily Not Available Not Available Not Available losartan 25 mg tablet TAKE 1 TABLET BY MOUTH DAILY 03/30 completed Not Available Not Available Not Available nitroglyc roberta 0.4 mg sublingua l tablet Place 1 tablet by sublingu al route as needed, for chest pain. 2023 active Not Available Not Available Not Avai lable mupirocin 2 % topical ointment APPLY A SMALL AMOUNT TO THE AFFECTED AREA BY TOPICAL ROUTE 2 TIMES PER DAY 11/11 completed Not Available Not Available Not Available furosemid e 20 mg tablet TAKE 1 TABLET BY MOUTH DAILY 03/30 completed Not Available Not Available Not Available benazepri l 40 mg tablet TAKE 1 TABLET BY MOUTH DAILY 01/30 completed Not Available Not Available Not Available enoxapari n 40 mg/0.4 mL subcutane ous syringe 08/09 completed completi ng on 07/26/23 Not Available Not Available Not Available Multivita min 50 Plus tablet Take by oral route. active Not Available Not Available No t Available Boostrix Tdap 2.5 Lf unit-8 mcg-5 Lf/0.5 mL intramusc ular syringe 03/11 completed Not Available Not Available Not Available Co Q-10 active Not Available Not Avail able Not Available clonidine 0.2mg PO TID active Not Available Not Available No t Available ferrous sulfate 04/13 completed Not Available Not Available Not Available Aspir-81 po 1 tab daily 01/30 completed Not Available Not Available Not Available amlodipin e 10 mg-benaze pril 40 mg capsule TAKE ONE CAPSULE BY MOUTH ONCE DAILY. 12/03 completed separate due to unavaila ble with combinat ion Not Available Not Available Not Available Invokana 100 mg tablet TAKE ONE TABLET BY MOUTH EVERY DAY FOR DIABETES 08/25 completed Not Available Not Available Not Available Farxiga 5 mg tablet active Not Available Not Available No t Available Jardiance 10 mg tablet TAKE 1 TABLET BY MOUTH ONCE DAILY 2024 active Not Available Not Available Not Avai lable metoprolo l succinate ER 50 mg capsule sprinkle, ext. release 24 hr Take 1 capsule every day by oral route. 01/30 completed Not Available Not Available Not Available Verquvo 2.5 mg tablet Take by oral route for 90 days. 2024 active Not Available Not Available Not Avai lable Vitals Date Recorded Body height Body mass index (BMI) Body weight Heart rate Oxygen saturation Oxygen saturation in Arterial blood by Pulse oximetry Systolic And Diastolic Provider Name and Address Organization Details Last Updated DateTime 5 172.72 cm 43.6 kg/m2 159940. 01 g 96 /min 98 % 98 % 130/66 mm[Hg] Thu Andrade RN [facility] 5 10:06:20 Date Recorded Body height Body mass index (BMI) Body weight Heart rate Oxygen saturation Oxygen saturation in Arterial blood by Pulse oximetry Systolic And Diastolic Provider Name and Address Organization Details Last Updated DateTime 5 172.72 cm 25.7 kg/m2 28109.1 1 g 78 /min 98 % 98 % 90/50 mm[Hg] Delia Cast LPN [facility] 5 14:19:14 Date Recorded Body height Body mass index (BMI) Body weight Heart rate Oxygen saturation Oxygen saturation in Arterial blood by Pulse oximetry Systolic And Diastolic Provider Name and Address Organization Details Last Updated DateTime 5 172.72 cm 24.6 kg/m2 61010.9 6 g 81 /min 99 % 99 % 104/60 mm[Hg] Thu Andrade RN [facility] 5 09:53:41 Date Recorded Body height Body mass index (BMI) Body weight Oxygen saturation Oxygen saturation in Arterial blood by Pulse oximetry Heart rate Respiratory rate Body temperature Systolic And Diastolic Systolic And Diastolic Systolic And Diastolic Provider Name and Address Organization Details Last Updated DateTime 5 172.72 cm 24.6 kg/m2 67889.3 1 g 97 % 97 % 64 /min 16 /min 97.8 [degF] 146/91 mm[Hg] 89/58 mm[Hg] 83/54 mm[Hg] Diana Thomas MA [facility] SIF 5 12:00:09 Date Recorded Body height Body mass index (BMI) Body weight Heart rate Oxygen saturation Oxygen saturation in Arterial blood by Pulse oximetry Systolic And Diastolic Provider Name and Address Organization Details Last Updated DateTime 5 172.72 cm 24.2 kg/m2 00648.1 9 g 92 /min 99 % 99 % 140/82 mm[Hg] Thu Andrade RN [facility] 14:50:56 Social History Question Answer Notes LastModified by Organizat ion Details LastModified Time Tobacco Smoking Status Former Smoker pt has not smoked since 11/09/24. Elsa Vazquez MA [facility], [place] - [facility] 04/13/2025 09:46:11 Are You Blind Or Do You Have Difficulty Seeing? No Glasses Information not available 05/07/2023 What Is Your Level Of Caffeine Consumption? Moderate 1 Cups Coffee Daily, Tea [email or web address] Information not available 04/29/2021 How Much Tobacco Do You Chew? None Information not available 01/07/2018 In The 14 Days Before Symptom Onset, Have You Had Close Contact With A Laboratory-confi rmed COVID-19 While That Case Was Ill? No [email or web address] Information not available 04/23/2020 In The 14 Days Before Symptom Onset, Have You Had Close Contact With A Person Who Is Under Investigation For COVID-19 While That Person Was Ill? No Information not available 04/23/2020 Have You Been To An Area Known To Be High Risk For COVID-19? No [email or web address] Information not available 04/23/2020 Are You Deaf Or Do You Have Serious Difficulty Hearing? No [email or web address] Information not available 12/28/2020 What Type Of Diet Are You Following? REGULAR [email or web address] Information not available 04/21/2022 Which Illicit Or Recreational Drugs Have You Used? 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 [id number] [email or web address] Information not available 12/28/2020 Are There Any Guns Present In Your Home? No Information not available 03/17/2019 Marital Status Informatio n not available 01/07/2018 What Was The Date Of Your Most Recent Tobacco Screening? 04/13/2025 Information not available 04/13/2025 What Is Your Relationship Status? Information not available 12/12/2021 Do You Use Your Seat Belt Or Car Seat Routinely? Yes [email or web address] Information not available 12/28/2020 Seat Belts Used Routinely No Information not available 03/17/2019 Smoke Alarm In Home Yes Information not available 12/03/2019 Do You Have Smoke And Carbon Monoxide Detectors In Your Home? Yes [email or web address] Information not available 12/28/2020 At What Age Did You Start Smoking Tobacco? 19 Information not available 01/07/2018 How Much Tobacco Do You Smoke? 0.5 PPD Information not available 01/07/2018 General Stress Level Low Information not available 01/07/2018 Do You Use Sunscreen Routinely? No Information not available 03/17/2019 Has Tobacco Cessation Counseling Been Provided? No Pt Has Not Smoked Since 11/09/24. Information not available 03/30/2025 On What Date Was Tobacco Cessation Counseling Provided? 12/05/2024 Information not available 12/05/2024 How Many Years Have You Smoked Tobacco? 49 03/02/23 [email or web address] Information not available 03/02/2023 Sex: Male Functional Status Question Answer Note LastModified by Organizat ion Details LastModified Time Do you use any illicit or recreational drugs? No [email or web address] Information not available 12/28/2020 Do you or have you ever used any other forms of tobacco or nicotine? No [email or web address] Information not available 12/28/2020 What is your level of alcohol consumption? None [email or web address] Information not available 04/23/2020 Do you or have you ever used smokeless tobacco? Never used smokeless tobacco Information not available 12/03/2019 Are you currently employed? No [email or web address] Information not available 12/28/2020 Are you able to care for yourself? Yes [email or web address] Information not available 12/28/2020 What is your occupation? Retired- [employer] Information not available 01/07/2018 Do you or have you ever used e-cigarettes or vape? Never used electronic cigarettes Information not available 12/03/2019 What is your exercise level? None Information not available 12/12/2021 Mental Status Question Answer Note LastModified by Organization D etails LastModified Time Do you feel stressed (tense, restless, nervous, or anxious, or unable to sleep at night)? [id number] Information not available 12/28/2020 Family History Relationship Description Onset Age of this Age Resolved Age Notes LastModified by Organization Details LastModified Time Mother Hypercholest erolemia Not available 2017 14:36:39 Mother Hypertensive disorder Not available 2017 14:36:53 Mother Heart murmur Not availa ble 01/07/2018 14:37:17 Father Hypertensive disorder Not available 2017 14:36:53 Father Diabetes mellitus Not available 2017 14:36:58 Medical History Condition Response Coronary Artery Disease N Other N Atrial Fibrillation N High Blood Pressure Y Kidney or Bladder Problems N Thyroid Problems N GI Problems N Depression N COPD N Blood Clots N Skin Problems N Anemia N Heart Attack (IA) Y Anxiety Disorder N Diabetes Y Muscle, Joint, or Bone Problems N Seizures/Epilepsy N Acid Reflux (GERD) N Cancer N Stroke N Asthma N Allergies N High Cholesterol Y Hepatitis N Liver Disease N Headaches N Heart Failure N Osteoporosis N Immunizations Vaccine Type Date Status Note Provider Nam e and Address Organization Details Recorded Time Tdap 8 completed Not Available [facility] 10/25/2019 02:35:21 Pneumococcal conjugate PCV 13 8 completed Not Available [facility] 10/25/2019 02:36:24 Pneumococcal conjugate PCV 13 9 completed Not Available [facility] 10/25/2019 02:48:27 pneumococcal polysaccharide PPV23 2 completed ANNA Guerrero, [place] - [facility] 12/12/2021 13:02:00 Past Encounters Encounter ID Performer Location Encounter Start Date Encounter Closed Date Diagnosis/Indication Diagnosis SNOMED-CT Code Diagnosis ICD10 Code Diagnosis Note [id number] Chacha Jeronimo MD [facility] (Adult Med) [address] [place] [address] 01/07/2018 13:57:44 01/09/2018 09:11:36 Type 2 diabetes mellitus 78257654 E11.9 continue metformine Coronary arteriosclerosis 62958029 I25.10 s/p stent 06/2000pt declined to see cardio at this timewill check records from previous pcppt to continue statin/asa /plavix Essential hypertension 47344981 I10 fair controllow salt diet and pt to quit smoking Smoker 49224894 F17.200 Administra tion of diphtheria, pertussis, and tetanus vaccine 516572569 Z23 [id number] [facility] [address] [place] [address] 03/11/2018 10:58:25 03/11/2018 11:34:03 Screening for malignant neoplasm of colon 264944782 Z12.11 pt declined colonoscop y ( last colonoscop y 2005) Essential hypertension 41045296 I10 continue current medslow salt diet and pt to quit smoking Type 2 maria r betes mellitus 61212987 E11.9 continue metformine Coronary arteriosclerosis 70431113 I25.10 s/p stent 06/2000pt declined to see cardio at this timept to continue statin/asa /plavix [id number] Chacha Jeronimo MD [facility] (Adult Med) [address] [place] [address] 07/08/2018 11:02:45 07/12/2018 15:54:26 Essential hypertension 16248395 I10 fair control/el evated due to smokingcon tinue current medslow salt diet and pt to quit smoking Type 2 maria r betes mellitus 41225832 E11.9 continue metformine Coronary arteriosclerosis 62588303 I25.10 s/p stent 06/2000pt declined to see cardio at this timept to continue statin/asa /plavix Liver func tion tests outside reference range 455757717 R94.5 pt to avoid alcohol and tylenol Infection of skin 326613 000 L08.9 on legs and abdomen -mild severitypt to call if problem persists or worsen -will give doxy Administra tion of pneumococcal vaccine 46459439 Z23 [id number] [facility] [address] [place] [address] 11/11/2018 11:02:14 11/11/2018 16:12:59 Coronary arteriosclerosis 52323348 I25.10 s/p stent 06/2000pt is willing to see cardio -will refer for evaluation pt to continue statin/asa /plavix Hyperlipidemia 15341086 E78.2 continue simvastati n Essential hypertension 70931205 I10 stablecont inue current medslow salt diet and pt to quit smoking Type 2 maria r betes mellitus 80481502 E11.9 stablecont inue metformine Smoker 48780893 F17.200 Screening for malignant neoplasm of prostate 831758326 Z12.5 [id number] [facility] [address] [place] [address] 03/17/2019 09:42:10 03/18/2019 11:36:49 Screening for malignant neoplasm of colon 000274720 Z12.11 pt declined colonoscop y ( last colonoscop y 2005) Essential hypertension 13663823 I10 stablecont inue current medslow salt diet and pt to quit smoking Hyperlipidemia 47888010 E78.2 continue simvastati n Coronary arteriosclerosis 21673087 I25.10 s/p stent 06/2000pt is referred to see cardio -pt did not make apt yetpt to continue statin/asa /plavix Type 2 maria r betes mellitus 14669865 E11.9 stablecont inue metformine Smoker 31208669 F17.200 check LDCT Acute bronchitis 3386756 2 J20.9 keep good hydration / quit smokingpt to return to clinic if problem continues or worsen History of tobacco use 6344268501 103 Z87.185 [id number] MD Deanna Oliva (Adult Med) [address] [place] [address] 07/28/2019 09:56:24 07/29/2019 12:47:09 Essential hypertension 29274434 I10 stablecont inue current medslow salt diet and pt to quit smoking Type 2 maria r betes mellitus 62928465 E11.9 stablecont inue metformin Coronary arteriosclerosis 95732978 I25.10 s/p stent 06/2000pt is referred to see cardio -pt did not make apt yetpt to continue statin/asa /plavix Administra tion of pneumococcal vaccine 45749896 Z23 History of tobacco use 4773560629 103 Z87.936 [id number] MD Lisa [facility]alto (Adult Med) [address] [place] [address] 12/03/2019 08:28:57 12/04/2019 08:48:16 Essential hypertension 38586920 I10 stablecont inue current medslow salt diet and pt to quit smoking Type 2 maria r betes mellitus 64150368 E11.9 stablecont inue metformin Coronary arteriosclerosis 93339527 I25.10 s/p stent 06/2000pt is referred to see cardio -pt did not make apt yetpt to continue statin/asa /plavix Hyperlipidemia 04311948 E78.2 continue simvastati n Smoker 42101435 F17.200 pt is not ready to quit .check LDCT [id number] [facility] [address] [place] [address] 04/23/2020 08:11:33 04/26/2020 07:44:29 Essential hypertension 37538686 I10 stablecont inue current medslow salt diet and pt to quit smoking Type 2 maria r betes mellitus 09626169 E11.9 stablecont inue metformin . Coronary arteriosclerosis 41061383 I25.10 s/p stent 06/2000pt is referred to see cardio -pt did not make apt yetpt to continue statin/asa /plavix [id number] MD Lisa [facility] (Adult Med) [address] [place] [address] 08/30/2020 08:09:50 08/31/2020 12:36:32 Essential hypertension 88554157 I10 stablecont inue current medslow salt diet and pt to quit smoking Type 2 maria r betes mellitus 90753473 E11.9 stablecont inue metformin . Coronary arteriosclerosis 99339354 I25.10 s/p stent 06/2000pt is referred to see cardio -pt did not make apt yetpt to continue statin/asa /plavix Smoker 89438144 F17.200 pt is not ready to quit .pt did not go for LDCT [id number] MD Deanna Oliva (Adult Med) [address] [place] [address] 12/28/2020 08:09:02 12/31/2020 09:18:13 Essential hypertension 56116859 I10 stablecont inue current medslow salt diet and pt to quit smoking Type 2 maria r betes mellitus 49602948 E11.9 fairly stable. Add jardiance since he has CAD with proteinuri a -advised pt to keep good hydration. continue metformin . Hyperlipidemia 51043096 E78.2 continue simvastati n Coronary arteriosclerosis 82194066 I25.10 s/p stent 06/2000pt is referred to see cardio -pt did not make apt yetpt to continue statin/asa /plavix Smoker 14121210 F17.200 pt is not ready to quit .pt did not go for LDCT [id number] MD Deanna Oliva (Adult Med) [address] [place] [address] 04/29/2021 10:34:24 05/02/2021 22:30:07 Essential hypertension 22887634 I10 stablecont inue current medslow salt diet and pt to quit smoking Type 2 maria r betes mellitus 66638627 E11.9 stable. Added jardiance since he has CAD with proteinuri a -advised pt to keep good hydration. continue metformin . Hyperlipidemia 17653499 E78.2 continue simvastati n Coronary arteriosclerosis 10748362 I25.10 s/p stent 06/2000pt is referred to see cardio -pt did not make apt yetpt to continue statin/asa /plavix Smoker 86836044 F17.200 pt is not ready to quit .pt did not go for LDCT [id number] MD Deanna Oliva (Adult Med) [address] [place] [address] 08/12/2021 09:28:09 08/15/2021 12:31:34 Essential hypertension 35195341 I10 stablecont inue current medslow salt diet and pt to quit smoking Type 2 maria r betes mellitus 61806003 E11.9 stable. Added jardiance since he has CAD with proteinuri a -advised pt to keep good hydration. continue metformin . 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 Added jardiance since he has CAD with proteinuri a -advised pt to keep good hydration. continue metformin . 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 Added jardiance since he has CAD with proteinuri a -advised pt to keep good hydration. pt to lower metformin once daily Hyperlipidemia 95856996 E78.2 continue simvastati n Overweight 033414775 E66 .3 Smoker 18272275 F17.200 pt is not ready to quit .pt did not go for LDCT Leukocytosis 466872216 D 72.829 -pt sees hematologi st -s/p BM bx which was unremarkab le [id number] MD Deanna Oliva (Adult Med) [address] [place] [address] 08/22/2022 08:51:08 08/23/2022 09:19:59 Essential hypertension 00823077 I10 stablecont inue current medslow salt diet and pt to quit smoking Type 2 maria r betes mellitus 27938755 E11.9 stable. Added sglt2i since he has CAD with proteinuri a -advised pt to keep good hydration. pt to lower metformin once daily Hyperlipidemia 99022506 E78.2 continue simvastati n Coronary arteriosclerosis 53741210 I25.10 s/p stent 06/2000pt is referred to see cardio -pt did not make apt yetpt to continue statin/asa /plavix [id number] MD Deanna Oliva (Adult Med) [address] [place] [address] 12/26/2022 08:46:32 12/27/2022 14:01:09 Essential hypertension 45706353 I10 stablecont inue current meds except clonidine ( pt takes 3 tab bid per pt ) - will try to lower clonidine to 2 tab bid -f/u in 2monthlow salt diet and pt to quit smoking Type 2 maria r betes mellitus 89868836 E11.9 stable. Added sglt2i since he has CAD with proteinuri a -advised pt to keep good hydration. pt to lower metformin once daily Coronary arteriosclerosis 08003781 I25.10 s/p stent 06/2000pt is referred to see cardio -pt did not make apt yetpt to continue statin/asa /plavix Hyperlipidemia 00743897 E78.2 continue simvastati n Leukocytosis 662035078 D 72.829 -pt sees hematologi st -s/p BM bx which was unremarkab le Overweight 650874433 E66 .3 [id number] MD Deanna Oliva (Adult Med) [address] [place] [address] 03/02/2023 08:57:01 03/06/2023 14:32:23 Essential hypertension 65734127 I10 stablecont inue current meds except clonidine - will try to lower clonidine to 1 tab tid -f/u in 2monthlow salt diet and pt to quit smoking Type 2 maria r betes mellitus 78599970 E11.9 stable. Added sglt2i since he has CAD with proteinuri a -advised pt to keep good hydration. pt to lower metformin once daily Hyperlipidemia 23669429 E78.2 continue simvastati n Coronary arteriosclerosis 77563892 I25.10 s/p stent 06/2000pt is referred to see cardio -pt did not make apt yetpt to continue statin/asa /plavix Overweight 753276974 E66 .3 [id number] [facility] [address] [place] [address] 05/07/2023 08:37:10 05/08/2023 08:54:48 Essential hypertension 96475081 I10 stablecont inue current meds - lowered clonidine to 1 tab tidlow salt diet and pt to quit smoking Type 2 maria r betes mellitus 74907526 E11.9 stable. Added sglt2i since he has CAD with proteinuri a -advised pt to keep good hydration. pt to lower metformin once daily Coronary arteriosclerosis 02697157 I25.10 s/p stent 06/2000pt is referred to see cardio -pt did not make apt yetpt to continue statin/asa /plavix Hyperlipidemia 16602842 E78.2 continue simvastati n [id number] [facility] [address] [place] [address] 07/24/2023 13:34:39 07/26/2023 10:06:19 History of hip fracture 961597056 Z87.81 femur fx following fall 06/30-s/p sx ORIF- pt sees ortho Essential hypertension 87607937 I10 -fairly stablecont inue current meds-amlod ipine / benazepril /coreg - lowered clonidine to 1 tab tidlow salt diet and pt to quit smoking Type 2 maria r betes mellitus 05544423 E11.9 stable. Added sglt2i since he has CAD with proteinuri a -advised pt to keep good hydration. pt to lower metformin once daily [id number] MD Lisa Olivahalto (Adult Med) [address] [place] [address] 08/09/2023 09:36:09 08/13/2023 14:48:19 Essential hypertension 74973249 I10 - stablecont inue current meds-amlod ipine / benazepril /coreg - lowered clonidine to 1 tab tidlow salt diet and pt to quit smoking Type 2 maria r betes mellitus 90829552 E11.9 stable. Added sglt2i since he has CAD with proteinuri a -advised pt to keep good hydration. pt to lower metformin 1/2 tab daily; Jardiance not covered under insurance. --changed to invokana Hyperlipidemia 05564355 E78.2 continue simvastati n Coronary arteriosclerosis 00919295 I25.10 s/p stent 06/2000pt is referred to see cardio -pt did not make apt yetpt to continue statin/asa /plavix History of hip fracture 582487286 Z87.81 femur fx following fall 06/30-s/p sx ORIF- pt sees ortho Overweight 006622893 E66 .3 [id number] [facility] [address] [place] [address] 12/13/2023 10:35:35 12/19/2023 10:33:55 Essential hypertension 29678730 I10 - stablecont inue current meds-amlod ipine / benazepril /coreg - lowered clonidine to 1 tab tidlow salt diet and pt to quit smoking Type 2 maria r betes mellitus 20758811 E11.9 stable. Added sglt2i since he has CAD with proteinuri a -advised pt to keep good hydration. pt to lower metformin 1/2 tab daily; Jardiance not covered under insurance. --changed to invokana Coronary arteriosclerosis 38694494 I25.10 s/p stent 06/2000pt is referred to see cardio -pt did not make apt yetpt to continue statin/asa /plavix Hyperlipidemia 32637248 E78.2 continue simvastati n History of hip fracture 595013120 Z87.81 femur fx following fall 06/30-s/p sx ORIF- pt sees orthopt said tramadol is not helping Overweight 919351333 E66 .3 Lesion of skin of nose 8017525664 8957358 J34.89 on L/side of nose [id number] [facility] [address] [place] [address] 04/22/2024 10:29:10 04/23/2024 15:05:34 Essential hypertension 97391554 I10 - fairly stablecont inue current meds-amlod ipine / benazepril /coreg - lowered clonidine to 1 tab tidlow salt diet and pt to quit smoking Type 2 maria r betes mellitus 68795002 E11.9 stable. Added sglt2i since he has CAD with proteinuri a -advised pt to keep good hydration. pt to lower metformin 1/2 tab daily; Jardiance not covered under insurance. --changed to invokana Coronary arteriosclerosis 90904179 I25.10 s/p stent 06/2000pt is referred to see cardio -pt did not make apt yetpt to continue statin/asa /plavix Hyperlipidemia 27121839 E78.2 continue simvastati n [id number] [facility] [address] [place] [address] 08/25/2024 10:58:49 08/26/2024 12:12:57 Essential hypertension 36768574 I10 - fairly stablecont inue current meds-amlod ipine / benazepril /coreg - lowered clonidine to 1 tab tidlow salt diet and pt to quit smoking Type 2 maria r betes mellitus 56103899 E11.9 stable. Added sglt2i since he has CAD with proteinuri a -advised pt to keep good hydration. pt to lower metformin 1/2 tab daily Coronary arteriosclerosis 83730564 I25.10 s/p stent 06/2000pt is referred to see cardio -pt did not make apt yetpt to continue statin/asa /plavix Influenza vaccination declined 493916625 Z28.21 [id number] Richi Healy MD [facility] [place] [facility] [address] [place] [address] 09/02/2024 10:19:56 09/10/2024 10:43:58 Coronary arteriosclerosis 40479673 I25.10 Chronic co mbined systolic and diastolic heart failure 7869657459 65200 I50.42 Essential hypertension 29389557 I10 Mixed hyperlipidemia 267 561211 E78.2 Nicotine dependence 5629 4008 F17.200 Type 2 maria r betes mellitus without complication 483974597 E11.9 [id number] Richi Healy MD [facility] [place] [facility] [address] [place] [address] 10/07/2024 10:42:59 10/09/2024 13:24:01 Nicotine dependence 49997161 F17.200 Chronic co mbined systolic and diastolic heart failure 2983262005 69772 I50.42 Palpitations 49464198 R0 0.2 Coronary arteriosclerosis 77613636 I25.10 Essential hypertension 75747353 I10 [id number] Richi Healy MD [facility] [place] [facility] [address] [place] [address] 11/13/2024 14:47:56 11/22/2024 11:38:08 Coronary arteriosclerosis in [place] artery 1496517778 107 I25.10 Chronic co mbined systolic and diastolic heart failure 9179900788 53074 I50.42 Essential hypertension 04289486 I10 Type 2 maria r betes mellitus without complication 962727519 E11.9 [id number] Richi Healy MD [facility] [place] [facility] [address] [place] [address] 12/05/2024 09:55:49 12/08/2024 10:08:39 Coronary arteriosclerosis 82873997 I25.10 Chronic co mbined systolic and diastolic heart failure 3515579085 55278 I50.42 Morbid obesity 906164330 E66.01 Essential hypertension 21168160 I10 [id number] Richi Healy MD [facility] [place] [facility] [address] [place] [address] 01/30/2025 14:02:39 02/03/2025 14:32:11 Acute on chronic combined systolic and diastolic heart failure 7807778480 28507 I50.43 Essential hypertension 43168484 I10 Coronary arteriosclerosis 99544893 I25.118 Paroxysmal atrial fibrillation 599739376 I48.0 Chronic ga stric ulcer without hemorrhage AND without perforation 75751828 K25.7 Overweight 043070776 E66 .3 [id number] Richi Healy MD [facility] [place] [facility] [address] [place] [address] 03/30/2025 09:44:24 03/31/2025 12:10:24 Chronic combined systolic and diastolic heart failure [id number] I50.42 Maintained on Jardiance 10, losartan 50, metoprolol succinate 50, spironolac tone 25. Continue the same. Continue furosemide 40 daily for volume management . Encouraged low-sodium diet and bringing log of home weight and blood pressure to the next office visit. Heart failure precaution s and red flag symptoms reinforced . Reinitiate Vericiguat 2.5 mg daily and check follow-up labs in 10 days. LVEF 15-20. Discussed options of wearable defibrilla tor which he declines while being aware of risk of sudden cardiac arrest and associated complicati ons. We will plan interval echocardio gram to assess need for primary prevention ICD and possible PROPERTY APPRAISER given left bundle-bra nch block. Pericardia l effusion appears to be related to heart failure and was improving on follow-up echocardio gram at [facility]. We will have low threshold to repeat echocardio gram in case of change in clinical status. Coronary arteriosclerosis [id number] I25.118 Status post CABG. Currently on aspirin 81 mg daily. No angina. We will check follow-up CBC. We will follow-up in 2 weeks and referred to cardiac rehab once functional status improves somewhat. Continue current dose of atorvastat in. Check follow-up lipid panel. Paroxysmal atrial fibrillation [id number] I48.0 Amiodarone 400 mg daily for now. Side effect profile discussed at length including need for periodic lung, liver, thyroid and the ophthalmol ogic monitoring . Not on anticoagul ation due to hemoperito neum. Aware of risks of CVA. We will consider evaluation for left atrial appendage occlusion in case of recurrence of atrial fibrillati on. Acute deep venous thrombosis of upper extremity [id number] 19204 I82.629 Catheter associated DVT. Not on anticoagul ation due to hemoperito neum. May need to be evaluated by Hematology . Has upcoming appointmen t to establish with new PCP And defer to their expertise. Plan close interval follow-up in 2 weeks. [id number] Richi Healy MD [facility] [place] [facility] [address] [place] [address] 04/13/2025 14:39:03 04/14/2025 12:10:43 Chronic combined systolic and diastolic heart failure [id number] I50.42 In light of continued dyspnea, obtain follow-up chest x-ray. Obtain labs including CBC, CMP, proBNP. Patient has not started Verquvo and we will represcrib e 2.5 mg daily. Continue current dose of metoprolol succinate 50, spironolac tone 25, Jardiance 10 and losartan 50. Does not wish for LifeVest or ICD/PROPERTY APPRAISER evaluation at this juncture. Again reiterated risks of malignant arrhythmia s which he understand s. Acute kidney injury [id number] N17.9 Due to worsening of renal function deescalate furosemide from 40 mg b.i.d. to 40 mg daily. Encouraged hydration with 64 oz water daily. Encouraged update on symptoms in the next 72 hours to consider further medication titration. Discussed regarding inpatient evaluation which he strongly wishes to defer and we will continue to address. Pericardial effusion [id number] I31.39 Moderate pericardia l effusion on last echocardio gram. Obtain follow-up echocardio gram to assess for progressio n accounting for slow recovery of heart failure. Paroxysmal atrial fibrillation [id number] I48.0 Deescalate amiodarone to 200 mg daily. Again side effect profile discussed. Not on anticoagul ation due to recent intraperit [place] bleed Health Concerns Section Related Observation LastModified by Organization Detai ls LastModified Time None Recorded Concern Status LastModified by Organization Details LastModified Time None Recorded Advance Directives Directive None Recorded Payers Insurance Date Sequence Insurance Name Policy Number Policy Brar Covered Member ID Brar Member ID Guarantor Name 04/12/2020 2 *SELF PAY* Ra tremayne Headley 04/13/2025 1 [facility] (MEDICARE REPLACEMENT/A DVANTAGE - HMO) [id number] Shaheen Headley [id number] Shaheen Headley 03/30/2025 1 [facility] [id number] Shaheen Headley [id number] Shaheen Headley Notes Date Note Type Note Provider Name and Address Organization Details Recorded Time 12/05/2024 text/html 69-year-old male history of coronary artery disease status post PCI in 1999 with incomplete database, type 2 diabetes, hypertension, mixed hyperlipidemia, nicotine dependence with lung nodule presents for follow-up. Echocardiogram September 26, 2024 with EF 25%. Cardiac catheterization 11/10/2024 with multivessel CAD involving proximal LAD. Interval history:Has been evaluated by Dr. Minaya of cardiac surgery at [facility]. Wishes for 2nd opinion for PCI with his son's coverage specialist rn. No chest pain or pressure. Stable NYHA class 2-3 symptoms. Denies palpitations, presyncope or syncope. Denies fever/chills. No bleeding diathesis. Diagnostics:Transthora cic echocardiogram, 10/06/2024:LVEF 25%, mild LV dilatation, no pulmonary hypertension, no significant valvular disease. 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 Gustafson, [facility], 11/10/2024:LM, distal left main 40-50% stenosis, diffusely [...] LDL 66, HDL 40, triglycerides 106, LFTs [id number]/27/2024: Sodium 142, potassium 4.4, chloride 102, CO2 25, BUN 15, creatinine 1.01, HGB 18.4, WBC be 14.5, platelet 296 Richi Healy MD Attn: Accounting,[address] [place], [address], [facility] - [facility] 12/05/2024 14:11:54 01/30/2025 text/html 69-year-old male history of coronary artery disease status post PCI in 1999 with incomplete database, type 2 diabetes, hypertension, mixed hyperlipidemia, nicotine dependence with lung nodule presents for follow-up. Echocardiogram September 26, 2024 with EF 25%. Cardiac catheterization 11/10/2024 with multivessel CAD involving proximal LAD. subsequently underwent three-vessel CABG, [facility] with postoperative atrial fibrillation which resolved on amiodarone. Subsequent rehospitalization with heart failure exacerbation and GI bleed with EGD showing clean based gastric ulcer with no active bleeding. Discharged on PPI b.i.d.. Interval history:Has been discharged to home. Discontinued LifeVest. Denies chest pain or pressure. No bleeding diathesis on single antiplatelet therapy with aspirin. Not on anticoagulation. We are going 30 day MCOT ordered per [facility]. Blood pressure optimal at home towards low normal. Diagnostics:Transthora cic echocardiogram, 10/06/2024:LVEF 25%, mild LV dilatation, no pulmonary hypertension, no significant valvular disease. 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 Gustafson, [facility], 11/10/2024:LM, distal left main 40-50% stenosis, diffusely heavily calcified proximal-mid LAD with large diagonal with 50% mid segment stenosis, ramus with nonobstructive disease, OM2 has 80-90% midsegment stenosis, distal left circumflex with 60% stenosis, mid RCA diffuse 60% stenosis and RPL with focal 80% stenosis, IFR RCA 0.85, IFR into proximal LAD 0.88 CABG, Dr. Carlyn Minaya, [facility], 12/22/2024:ALAMO-LAD, SVG-OM, SVG-PDA Labs:April 2024: Sodium 143, potassium 3.6, chloride 99, CO2 30, BUN 15, creatinine 0.92, HbA1c 5.6, LDL 66, HDL 40, triglycerides 106, LFTs [id number]/27/2024: Sodium 142, potassium 4.4, chloride 102, CO2 25, BUN 15, creatinine 1.01, HGB 18.4, WBC be 14.5, platelet 296 Richi Healy MD Attn: Accounting,[address] [facility], [place], [address], [place] - [facility] 01/30/2025 16:42:06 03/30/2025 text/html 69-year-old male history of coronary artery disease status post PCI in 1999 with incomplete database, type 2 diabetes, hypertension, mixed hyperlipidemia, nicotine dependence with lung nodule presents for follow-up. Echocardiogram September 26, 2024 with EF 25%. Cardiac catheterization 11/10/2024 with multivessel CAD involving proximal LAD. subsequently underwent three-vessel CABG, [facility] with postoperative atrial fibrillation which resolved on amiodarone. Subsequent rehospitalization with heart failure exacerbation and GI bleed with EGD showing clean based gastric ulcer with no active bleeding. Discharged on PPI b.i.d.. rehospitalized [facility] in February 2025 with pneumonia, heart failure exacerbation with respiratory failure requiring intubation, EVELIO. Patient had paroxysmal atrial fibrillation and PICC line associated right upper extremity DVT. He was not anticoagulated due to intraperitoneal bleed noted on CT. subsequently discharged to rehab. Maintained on amiodarone 400 Interval history:discharge from rehab on March 25. Settling into home. Has not had any bleeding diathesis. No chest pain or pressure. Has not been checking weights regularly now. Does feel weak which is improving. No subjective palpitations. No presyncope or syncope. Diagnostics:Transthora cic echocardiogram, 10/06/2024:LVEF 25%, mild LV dilatation, no pulmonary hypertension, no significant valvular disease. Transthoracic echocardiogram 02/25/2025: LVEF 15-20, IVCD secondary to left bundle-branch block, moderate anterior pericardial effusion with no tamponade, left pleural effusion. Pericardial effusion diminished in size compared to previous echocardiogram. 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 Gustafson, [facility], 11/10/2024:LM, distal left main 40-50% stenosis, diffusely heavily calcified proximal-mid LAD with large diagonal with 50% mid segment stenosis, ramus with nonobstructive disease, OM2 has 80-90% midsegment stenosis, distal left circumflex with 60% stenosis, mid RCA diffuse 60% stenosis and RPL with focal 80% stenosis, IFR RCA 0.85, IFR into proximal LAD 0.88 CABG, Dr. Carlyn Minaya, [facility], 12/22/2024:ALAMO-LAD, SVG-OM, SVG-PDA Richi Healy MD Attn: Accounting,[address] [facility], [place], [address], [place] [facility] 03/30/2025 10:32:14 04/13/2025 text/html 69-year-old male history of coronary artery disease status post PCI in 1999 with incomplete database, type 2 diabetes, hypertension, mixed hyperlipidemia, nicotine dependence with lung nodule presents for follow-up. Echocardiogram September 26, 2024 with EF 25%. Cardiac catheterization 11/10/2024 with multivessel CAD involving proximal LAD. subsequently underwent three-vessel CABG, [facility] with postoperative atrial fibrillation which resolved on amiodarone. Subsequent rehospitalization with heart failure exacerbation and GI bleed with EGD showing clean based gastric ulcer with no active bleeding. Discharged on PPI b.i.d.. rehospitalized [facility] in February 2025 with pneumonia, heart failure exacerbation with respiratory failure requiring intubation, EVELIO. Patient had paroxysmal atrial fibrillation and PICC line associated right upper extremity DVT. He was not anticoagulated due to intraperitoneal bleed noted on CT. subsequently discharged to rehab. Maintained on amiodarone 400 Interval history:No clinical recurrence of atrial fibrillation. Continues to feel weak. NYHA class 2 dyspnea. Weight is relatively stable. Blood pressure optimal. No bleeding diathesis. Noted increase in creatinine and leukocytosis. Compared with labs from [facility] at the time of discharge which show renal function is worsening but leukocytosis is actually downtrending. Diagnostics:Transthora cic echocardiogram, 10/06/2024:LVEF 25%, mild LV dilatation, no pulmonary hypertension, no significant valvular disease. Transthoracic echocardiogram 02/25/2025: LVEF 15-20, IVCD secondary to left bundle-branch block, moderate anterior pericardial effusion with no tamponade, left pleural effusion. Pericardial effusion diminished in size compared to previous echocardiogram. 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 Gustafson, [facility], 11/10/2024:LM, distal left main 40-50% stenosis, diffusely heavily calcified proximal-mid LAD with large diagonal with 50% mid segment stenosis, ramus with nonobstructive disease, OM2 has 80-90% midsegment stenosis, distal left circumflex with 60% stenosis, mid RCA diffuse 60% stenosis and RPL with focal 80% stenosis, IFR RCA 0.85, IFR into proximal LAD 0.88 CABG, Dr. Carlyn Minaya, [facility], 12/22/2024:ALAMO-LAD, SVG-OM, SVG-PDA Richi Healy MD Attn: Accounting,[address] [place], [address], [facility] - [facility] 04/13/2025 16:19:58
--- OUTSIDE RECORDS SUMMARY | 2025-04-20 22:44 | XMS_ITS ---
Author Organization Unknown Address [address] [place] [address] [phone] Phone Care Team Providers Care Boiler Tube Reamer Name Role Phone HAJA MARCH Attending Unavailable [...] femoral head remains in articulation. There is [id number] left hip osteoarthritis. 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 IMPRESSION: ? ? Interval reduction and nailing of an intertrochanteric proximal left femur fracture. ? ? Mono-gs-[id number] left hip osteoarthritis. THIS IS AN ELECTRONICALLY VERIFIED FINAL REPORT 09/10/2023 1:38 PM - Electronically signed by Jeffrey Brock M.D. MF: [id number] Report ID: [id number] Reading Location: [id number] Social History Type Status Start Date End [...] healing 09/07/2023 SNOMED-CT Personal Care Team Section Imaging Narrative Notes
--- OUTSIDE RECORDS SUMMARY | 2025-04-20 22:44 | XMS_ITS | Clinical Summary ---
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 Name Role Phone Richi Healy MD Unavailable Carlyn Minaya MD Unavailable [phone] Radha Epps NP Primary Care Provider Allergies [...] mouth daily 30 tablet 03/12/2025 03/12/20 Active metoprolol XL (TOPROL-XL) 50 mg extended release tablet Take 1 tablet (50 mg total) by mouth nightly 30 tablet 03/11/2025 03/11/20 Active amiodarone (PACERONE) 400 mg tablet Take [...] Description 04/20/2025 9:05 AM CDT Hospital Encounter [facility] [address] [place] [address] Chronic combined systolic and diastolic heart failure (HCC) 03/13/2025 Telephone [facility] Transplant Heart [address] [place] [address] [address] -[address] [place] [phone] Paolo Wilson 03/12/2025 Telephone [facility] Transplant Heart [address] [facility] [address] Mailstop [address] [place] [address] Saloni Neff 03/03/2025 Orders Only [facility] - Interventional Radiology [facility] [place] [address] Junior Amaya RN 02/18/2025 7:39 PM CDT - 03/11/2025 5:07 PM CDT Hospital Encounter [place] [place] [address] Rehana Shipley DO Anand, MD Bert Green, MD Marianela Smith, MD Codey Lugo, MD Osmani Crockett Tariq, MD Al Assaad, MD Michael Cordoba, Karin Sebastian MD Poor venous access (Primary Dx); CHF [...] of lung (HCC); Atrial fibrillation with RVR (HCC) [I48.91]; Intra-abdominal bleeding; Hemoperitoneum [K66.1]; Chronic systolic (congestive) heart failure (HCC) Discharge Disposition: Discharge to SNF 02/05/2025 Telephone [facility] [address] [facility] [address] [place] [phone] Raine Martinez EP-C cr follow up call 01/26/2025 [facility] Post Discharge Follow up phone call [address] [address] Destiny Rausch RN 01/25/2025 9:50 AM CDT - 01/25/2025 11:59 PM CDT Hospital Encounter [facility] Cardiac Testing [address] [place] [address] [address] [place] [address] Discharge Disposition: Discharge to home or self care 01/19/2025 3:28 PM CDT Anesthesia Event [facility] [address] [place] [phone] Huang Hughes MD Toler, Mary Katherine, CRNA 01/19/2025 2:40 PM CDT - 01/19/2025 3:10 PM CDT Surgery [facility] [place] [phone] Eric Neal MD EGD 01/15/2025 2:33 PM CDT - 01/25/2025 11:50 AM CDT Hospital Encounter [address] [place] [phone] Brayden Hopkins MD Acute on chronic systolic heart failure (HCC) (Primary Dx); Pleural effusion [J90]; Melena; Paroxysmal atrial fibrillation (HCC) Discharge Disposition: Discharge to home or self care from Last 3 Months Immunizations Immunization Administration Dates Next Due Pneumococcal Conjugate PCV 13 07/28/2019, 018 Pneumococcal Polysaccharide PPV23 12/12/2021 Tdap 01/07/2018 Surgical History Surgery Date Site/Laterality Comments COLONOSCOPY TOTAL HIP ARTHROPLASTY Left circa 2020 CARDIAC CATHETERIZATION 11/10/2024 N/A Procedure: LEFT HEART CATHETERIZATION WITH CORONARY ANGIOGRAPHY AND WITH OR WITHOUT LEFT VENTRICULOGRAM 13312; Surgeon: Ed Gustafson MD; Location: [facility]; Service: Cardiovascular; Laterality: N/A; CARDIAC CATHETERIZATION 11/10/2024 N/A Procedure: Coronary Flow Velocity (CFR) / Instantaneous Flow Velocity (IFR), 1st Vessel; Surgeon: Ed Gustafson MD; Location: [facility]; Service: Cardiovascular; Laterality: N/A; CARDIAC CATHETERIZATION 11/10/2024 N/A Procedure: Coronary Flow Velocity (CFR) / Instantaneous Flow Velocity (IFR), Ea Addtn'l Vessel; Surgeon: Ed Gustafson MD; Location: [facility]; Service: Cardiovascular; Laterality: N/A; Medical History Medical History Date Comments Diabetes mellitus (HCC) Polycythemia Coronary artery disease Hypertension Family History Medical History Relation Name Comments Heart disease Mother rheumatic hear t diseasej/murmur Relation Name Status Comments Mother Social History Tobacco Use Types Packs/Day Years Used Date Smoking Tobacco: Former Cigarettes 1.3 51.1 1 974 - 11/09/2024 Tobacco Cessation:Counseling Given: No [facility] Utilities Answer Date Recorded In the past 12 months has [employer], [employer], or [employer] threatened to shut off services in your home? No 02/19/2025 Social Connection and Isolation Panel [NHANES] A nswer Date Recorded In a typical week, how many times do you talk on the phone with family, friends, or neighbors? Twice a week 02/19/2025 How often do you get together with friends or re latives? Twice a week 02/19/2025 How often do you attend scientology or baptist serv ices? 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 Gender Identity Not on file Sexual Orientation [...] 02/22/2025 3:05 PM CDT Plan of Treatment Health Maintenance Due Date Last Done Comments Albumin Creatinine Ratio, Urine 1953 Colon Cancer Screening-Colonoscopy 1955 Depression Screening 1953 Hepatitis C Screening 1953 Dilated Eye Exam 1953 Foot Exam 1953 Hepatitis B Screening 1971 Zoster Vaccine (1 of 2) 2003 Well Visit 65+ 2018 Lung Cancer Screening 12/07/2023 12/06/2022, 022 Influenza Vaccine (#1) 2025 Hemoglobin A1C 06/19/2025 12/17/2024 Lipid Panel 12/17/2025 12/17/2024 Fall Risk Assessment 03/10/2026 03/10/2025 eGFR 03/10/2026 03/10/2025, 0611/2024, 03/08/2025, Additional history exists DTaP/Tdap/Td Vaccine (2 - Td or Tdap) 01/08/2028 01/07/2018 Pneumococcal vaccine 65+ Completed 022, 07/28/2019, 07/08/2018 Abdominal Aortic Aneurysm (A AA) Screen Completed 03/08/2025, 03/01/2025 Procedures Procedure Name Priority Date/Time Associated Diagnosis [...] BLOOD CULTURE Routine 03/08/2025 4:40 PM CDT GA INSJ NON-TUNNELED CENTRAL VENOUS CATH AGE 5 [...] 12:55 PM CDT Coronary artery disease 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) Pre-op evaluation Type 2 diabetes mellitus with hyperglycemia, with long-term current use of insulin ([facility]) LIPID PANEL Routine 12/17/2024 12:55 PM CDT Coronary artery disease 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) Pre-op evaluation Type 2 diabetes mellitus with hyperglycemia, with long-term current use of insulin ([facility]) CT CHEST WO CONTRAST F/U MELISSA G SCREEN PROTOCOL Schedule Routine, Read Routine (OP Routine) 12/06/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 POC Performer [id number] [facility] Blood 03/11/2025 12:2 3 PM CDT 03/11/2025 12:23 PM CDT Gil Pierce MD LAB POCT ORDERABLES - DE VICE Final Result Performing Organization Address City/[facility]/ZIP Co de Phone Number [facility] [address] [place] [address] * POCT glucose (03/11/2025 6:08 AM CDT) Glucose, POC 112 70 - 199 mg/dL Comment: For Glucose values <35 mg/dl when Hematocrit is >60 mg/dl,the test may not accurately detect significant hypoglycemia,and testing in the Laboratory should be considered if clinically indicated. POC Performer [id number] [facility] Blood 03/11/2025 6:08 AM CDT 03/11/2025 6:08 AM CDT Gil Pierce MD LAB POCT ORDERABLES - DE VICE Final Result Performing Organization Address City/[facility]/ZIP Co de Phone Number [facility] [address] [place] [address] * (ABNORMAL) Blood smear review (03/11/2025 6:05 AM CDT) Pathologist [facility] RBC morphology Present(A) Hypochromasia 3-7/HPF(A) [facility] Anisocytosis Slight(A) [facility] Elliptocytes 3-7/HPF(A) [facility] Platelet estimate Adequate [facility] Morphology scrn See Comment [facility] Comment:WBC: Toxic Granulati on present RBC: [place] cells present Blood 03/11/2025 6:05 AM CDT 03/11/2025 6:14 AM CDT us Chase Keen MD LAB BLOOD ORDERABLES Final Resul t [facility] [address] [place] [address] * (ABNORMAL) Differential, auto (03/11/2025 6:05 AM CDT) Pathologist [facility] Neutrophil abs 20.77(H) 1.50 - 6.50 K/cumm Imm gran abs 0.68(H) 0.00 - 0.10 K/cumm [facility] Lymphocyte abs 2.19 0.80 - 3.30 K/cumm [facility] Monocyte abs 2.24(H) 0.20 - 0.80 K/cumm [facility] Eosinophil abs 0.11 0.00 - 0.50 K/cumm [facility] Basophil abs 0.13(H) 0.00 - 0.10 K/cumm [facility] Neutrophil pct 79.5 % [facility] Comment: Interpretive Data Percent cell count reference ranges are not reported, since discordance with absolute values may lead to misinterpretation of CBC data. Current Interpretive Data was last revised on 2018. Imm gran pct 2.6 % [facility] Comment: Interpretive Data Percent cell count reference ranges are not reported, since discordance with absolute values may lead to misinterpretation of CBC data. Current Interpretive Data was last revised on 2018. Lymphocyte pct 8.4 % [facility] Comment: Interpretive Data Percent cell count reference ranges are not reported, since discordance with absolute values may lead to misinterpretation of CBC data. Current Interpretive Data was last revised on 2018. Monocyte pct 8.6 % [facility] Comment: Interpretive Data Percent cell count reference ranges are not reported, since discordance with absolute values may lead to misinterpretation of CBC data. Current Interpretive Data was last revised on 2018. Eosinophil pct 0.4 % [facility] Comment: Interpretive Data Percent cell count reference ranges are not reported, since discordance with absolute values may lead to misinterpretation of CBC data. Current Interpretive Data was last revised on 2018. Basophil pct 0.5 % [facility] Comment: Interpretive Data Percent cell count reference ranges are not reported, since discordance with absolute values may lead to misinterpretation of CBC data. Current Interpretive Data was last revised on 2018. Blood 03/11/2025 6:05 AM CDT 03/11/2025 6:14 AM CDT us Chase Keen MD LAB BLOOD ORDERABLES Final Resul t [facility] [address] [place] [address] * (ABNORMAL) CBC with auto differential (03/11/2025 6:05 AM CDT) WBC 26.12(H) 3.80 - 9.90 K/cumm Hgb 8.9(L) 13.0 - 17.5 g/dL [facility] Hct 29.6(L) 38.9 - 50.3 % [facility] Plt 283 150 - 400 K/cumm [facility] MPV 9.6 9.1 - 12.3 fL [facility] RBC 3.09(L) 4.30 - 5.80 M/cumm [facility] MCV 95.8 81.3 - 96.4 fL [facility] MCH 28.8 27.1 - 33.3 pg [facility] MCHC 30.1(L) 32.3 - 35.7 g/dL [facility] RDW CV 16.6(H) 11.1 - 14.9 % [facility] RDW SD 55.8(H) 35.7 - 48.1 fL [facility] NRBC abs 0.02(H) 0.00 - 0.01 K/cumm [facility] Blood 03/11/2025 6:05 AM CDT 03/11/2025 6:14 AM CDT Chase Keen MD LAB BLOOD ORDERABLES Final Resul t Performing Organization Address City/[facility]/ZIP Co de Phone Number [facility] [address] [place] [address] * POCT glucose (03/10/2025 8:45 PM CDT) Glucose, POC 175 70 - 199 mg/dL Comment: For Glucose values <35 mg/dl when Hematocrit is >60 mg/dl,the test may not accurately detect significant hypoglycemia,and testing in the Laboratory should be considered if clinically indicated. POC Performer [id number] [facility] Blood 03/10/2025 8:45 PM CDT 03/10/2025 8:45 PM CDT Gil Pierce MD LAB POCT ORDERABLES - DE VICE Final Result Performing Organization Address [facility] de Phone Number [place] [id number] [facility] [place] [address] * POCT glucose (03/10/2025 4:52 PM CDT) Glucose, POC 146 70 - 199 mg/dL Comment: For Glucose values <35 mg/dl when Hematocrit is >60 mg/dl,the test may not accurately detect significant hypoglycemia,and testing in the Laboratory should be considered if clinically indicated. POC Performer [id number] [facility] Blood 03/10/2025 4:52 PM CDT 03/10/2025 4:52 PM CDT Gil Pierce MD LAB POCT ORDERABLES - DE VICE Final Result Performing Organization Address City/[facility]/ZIP Co de Phone Number [facility] [address] [facility] [employer] [place], [place] [id number] * POCT glucose (03/10/2025 12:58 PM CDT) Glucose, POC 151 70 - 199 mg/dL Comment: For Glucose values <35 mg/dl when Hematocrit is >60 mg/dl,the test may not accurately detect significant hypoglycemia,and testing in the Laboratory should be considered if clinically indicated. POC Performer [id number] [facility] Blood 03/10/2025 12:5 8 PM CDT 03/10/2025 12:58 PM CDT Gil Pierce MD LAB POCT ORDERABLES - DE VICE Final Result Performing Organization Address [facility] Co de Phone Number [facility] [address] [facility] [place] [address] * POCT glucose (03/10/2025 6:19 AM CDT) Glucose, POC 116 70 - 199 mg/dL Comment: For Glucose values <35 mg/dl when Hematocrit is >60 mg/dl,the test may not accurately detect significant hypoglycemia,and testing in the Laboratory should be considered if clinically indicated. POC Performer [id number] [facility] Blood 03/10/2025 6:19 AM CDT 03/10/2025 6:19 AM CDT Gil Pierce MD LAB POCT ORDERABLES - DE VICE Final Result Performing Organization Address City/[facility]/ZIP Co de Phone Number [facility] [address] [facility] [employer] [place], [place] [id number] * eGFR (03/10/2025 3:44 AM CDT) eGFR [...] MD LAB BLOOD ORDERABLES Final Re sult [facility] [address] [place] [address] * (ABNORMAL) Differential, auto (03/10/2025 3:44 AM CDT) Neutrophil abs 20.12(H) 1.50 - 6.50 K/cumm Imm gran abs 0.76(H) 0.00 - 0.10 K/cumm [facility] Lymphocyte abs 2.62 0.80 - 3.30 K/cumm [facility] Monocyte abs 2.16(H) 0.20 - 0.80 K/cumm [facility] Eosinophil abs 0.19 0.00 - 0.50 K/cumm [facility] Basophil abs 0.07 0.00 - 0.10 K/cumm [facility] Neutrophil pct 77.7 % [facility] Comment: Differential consistent with previous result. Interpretive Data Percent cell count reference ranges are not reported, since discordance with absolute values may lead to misinterpretation of CBC data. Current Interpretive Data was last revised on 2018. Imm gran pct 2.9 % [facility] Comment: Interpretive Data Percent cell count reference ranges are not reported, since discordance with absolute values may lead to misinterpretation of CBC data. Current Interpretive Data was last revised on 2018. Lymphocyte pct 10.1 % [facility] Comment: Interpretive Data Percent cell count reference ranges are not reported, since discordance with absolute values may lead to misinterpretation of CBC data. Current Interpretive Data was last revised on 2018. Monocyte pct 8.3 % [facility] Comment: Interpretive Data Percent cell count reference ranges are not reported, since discordance with absolute values may lead to misinterpretation of CBC data. Current Interpretive Data was last revised on 2018. Eosinophil pct 0.7 % [facility] Comment: Interpretive Data Percent cell count reference ranges are not reported, since discordance with absolute values may lead to misinterpretation of CBC data. Current Interpretive Data was last revised on 2018. Basophil pct 0.3 % [facility] Comment: Interpretive Data Percent cell count reference ranges are not reported, since discordance with absolute values may lead to misinterpretation of CBC data. Current Interpretive Data was last revised on 2018. Blood 03/10/2025 3:44 AM CDT 03/10/2025 3:59 AM CDT us Chase Keen MD LAB BLOOD ORDERABLES Final Resul t [facility] [address] [place] [address] * (ABNORMAL) CBC with auto differential (03/10/2025 3:44 AM CDT) WBC 25.92(H) 3.80 - 9.90 K/cumm Hgb 8.4(L) 13.0 - 17.5 g/dL [facility] Hct 27.2(L) 38.9 - 50.3 % [facility] Plt 287 150 - 400 K/cumm [facility] MPV 9.7 9.1 - 12.3 fL [facility] RBC 2.88(L) 4.30 - 5.80 M/cumm [facility] MCV 94.4 81.3 - 96.4 fL [facility] MCH 29.2 27.1 - 33.3 pg [facility] MCHC 30.9(L) 32.3 - 35.7 g/dL [facility] RDW CV 16.4(H) 11.1 - 14.9 % [facility] RDW SD 54.4(H) 35.7 - 48.1 fL [facility] NRBC abs 0.03(H) 0.00 - 0.01 K/cumm [facility] Blood 03/10/2025 3:44 AM CDT 03/10/2025 3:59 AM CDT us Chase Keen MD LAB BLOOD ORDERABLES Final Resul t Performing Organization Address City/[facility]/ZIP Co de Phone Number [facility] [address] [place] [address] * Lipase (03/10/2025 3:44 AM CDT) Pathologist [facility] Lipase 87 10 - 99 Units/L Blood 03/10/2025 3:44 AM CDT 03/10/2025 3:58 AM CDT us Chao Vann MD LAB BLOOD ORDERABLES Final Re sult Performing Organization Address City/[facility]/ZIP Co de Phone Number [facility] [address] [place] [address] * (ABNORMAL) Basic metabolic panel (03/10/2025 3:44 AM CDT) [facility] Sodium 137 135 - 145 mmol/L Potassium, pl 4.7 3.3 - 4.9 mmol/L [facility] Chloride 102 97 - 110 mmol/L [facility] CO2 22 22 - 32 mmol/L [facility] Anion gap 13 2 - 15 mmol/L [facility] BUN 28(H) 6 - 25 mg/dL [facility] Creatinine 1.13 0.80 - 1.30 mg/dL [facility] Glucose 114 70 - 199 mg/dL [facility] Comment: Interpretive Data Fasting glucose >/= 126 [...] 2022. Calcium 7.9(L) 8.5 - 10.3 mg/dL [facility] Blood 03/10/2025 3:44 AM CDT 03/10/2025 3:58 AM CDT us Chao Vann MD LAB BLOOD ORDERABLES Final Re sult Performing Organization Address [facility]/ZIP Co de Phone Number [facility] [address] [place] [address] * (ABNORMAL) POCT glucose (03/09/2025 8:47 PM CDT) [facility] Signature Glucose, POC 210(H) 70 - 199 mg/dL Comment: For Glucose values <35 mg/dl when Hematocrit is >60 mg/dl,the test may not accurately detect significant hypoglycemia,and testing in the Laboratory should be considered if clinically indicated. POC Performer [id number] [facility] Blood 03/09/2025 8:47 PM CDT 03/09/2025 8:47 PM CDT us Gil Pierce MD LAB POCT ORDERABLES - DE VICE Final Result Performing Organization Address [facility]/ZIP Co de Phone Number [facility] [address] [place] [address] * Amylase - Add on lab test (03/09/2025 7:03 PM CDT) Acceptable Yes Blood 03/09/2025 7:03 PM CDT 03/09/2025 7:04 PM CDT Narrative [facility] - 03/09/2025 7:05 PM CDT Name of Test->Amylase Chao Vann MD LAB BLOOD ORDERABLES Final Re sult Performing Organization Address [facility]/ZIP Co de Phone Number [facility] [address] [place] [address] * POCT glucose (03/09/2025 5:40 PM CDT) Glucose, POC 129 70 - 199 mg/dL Comment: For Glucose values <35 mg/dl when Hematocrit is >60 mg/dl,the test may not accurately detect significant hypoglycemia,and testing in the Laboratory should be considered if clinically indicated. POC Performer [id number] [facility] Blood 03/09/2025 5:40 PM CDT 03/09/2025 5:40 PM CDT Gil Pierce MD LAB POCT ORDERABLES - DE VICE Final Result Performing Organization Address [facility] Co de Phone Number [facility] [address] [place] [address] * POCT glucose (03/09/2025 12:11 PM CDT) Glucose, POC 165 70 - 199 mg/dL Comment: For Glucose values <35 mg/dl when Hematocrit is >60 mg/dl,the test may not accurately detect significant hypoglycemia,and testing in the Laboratory should be considered if clinically indicated. POC Performer [id number] [facility] Blood 03/09/2025 12:1 1 PM CDT 03/09/2025 12:11 PM CDT Gil Pierce MD LAB POCT ORDERABLES - DE VICE Final Result Performing Organization Address [facility] Co de Phone Number [facility] [address] [facility] [place] [address] * Procalcitonin - Add on lab test (03/09/2025 10:43 AM CDT) Pathologist [facility] Acceptable Yes Blood 03/09/2025 10:4 3 AM CDT 03/09/2025 10:43 AM CDT Narrative [facility] - 03/09/2025 10:43 AM CDT Name of Test->Procalcitonin Gil Pierce MD LAB BLOOD ORDERABLES Fin al Result Performing Organization Address [facility] Co de Phone Number [facility] [address] [place] [address] * POCT glucose (03/09/2025 6:38 AM CDT) [facility] Glucose, POC 122 70 - 199 mg/dL Comment: For Glucose values <35 mg/dl when Hematocrit is >60 mg/dl,the test may not accurately detect significant hypoglycemia,and testing in the Laboratory should be considered if clinically indicated. POC Performer [id number] [facility] Blood 03/09/2025 6:38 AM CDT 03/09/2025 6:38 AM CDT Chase Keen MD LAB POCT ORDERABLES - DEVICE Fin al Result Performing Organization Address [facility] Co de Phone Number [facility] [address] [place] [address] * eGFR (03/09/2025 4:54 AM CDT) Pathologist [facility] eGFR 73 >=60 mL/min/1. 73 [...] MD LAB BLOOD ORDERABLES Final Resul t [facility] [address] [place] [address] * (ABNORMAL) Differential, auto (03/09/2025 4:54 AM CDT) Neutrophil abs 21.28(H) 1.50 - 6.50 K/cumm Imm gran abs 1.01(H) 0.00 - 0.10 K/cumm [facility] Lymphocyte abs 2.38 0.80 - 3.30 K/cumm [facility] Monocyte abs 2.34(H) 0.20 - 0.80 K/cumm [facility] Eosinophil abs 0.15 0.00 - 0.50 K/cumm [facility] Basophil abs 0.11(H) 0.00 - 0.10 K/cumm [facility] Neutrophil pct 78.0 % [facility] Comment: Differential consistent with previous result. Interpretive Data Percent cell count reference ranges are not reported, since discordance with absolute values may lead to misinterpretation of CBC data. Current Interpretive Data was last revised on 2018. Imm gran pct 3.7 % [facility] Comment: Interpretive Data Percent cell count reference ranges are not reported, since discordance with absolute values may lead to misinterpretation of CBC data. Current Interpretive Data was last revised on 2018. Lymphocyte pct 8.7 % [facility] Comment: Interpretive Data Percent cell count reference ranges are not reported, since discordance with absolute values may lead to misinterpretation of CBC data. Current Interpretive Data was last revised on 2018. Monocyte pct 8.6 % [facility] Comment: Interpretive Data Percent cell count reference ranges are not reported, since discordance with absolute values may lead to misinterpretation of CBC data. Current Interpretive Data was last revised on 2018. Eosinophil pct 0.6 % [facility] Comment: Interpretive Data Percent cell count reference ranges are not reported, since discordance with absolute values may lead to misinterpretation of CBC data. Current Interpretive Data was last revised on 2018. Basophil pct 0.4 % [facility] Comment: Interpretive Data Percent cell count reference ranges are not reported, since discordance with absolute values may lead to misinterpretation of CBC data. Current Interpretive Data was last revised on 2018. Blood 03/09/2025 4:54 AM CDT 03/09/2025 4:54 AM CDT us Chase Keen MD LAB BLOOD ORDERABLES Final Resul t Performing Organization Address City/[facility]/ZIP Co de Phone Number [facility] [address] [facility] [place] [address] * Procalcitonin (03/09/2025 4:54 AM CDT) Procalcitonin 0.25 <=0.25 ng/mL Blood 03/09/2025 4:54 AM CDT 03/09/2025 4:54 AM CDT us Gil Pierce MD LAB BLOOD ORDERABLES Fin al Result [facility] [address] [place] [address] * (ABNORMAL) CBC with auto differential (03/09/2025 4:54 AM CDT) Pathologist [facility] WBC 27.27(H) 3.80 - 9.90 K/cumm Hgb 8.5(L) 13.0 - 17.5 g/dL [facility] Hct 27.4(L) 38.9 - 50.3 % [facility] Plt 322 150 - 400 K/cumm [facility] MPV 10.1 9.1 - 12.3 fL [facility] RBC 2.89(L) 4.30 - 5.80 M/cumm [facility] MCV 94.8 81.3 - 96.4 fL [facility] MCH 29.4 27.1 - 33.3 pg [facility] MCHC 31.0(L) 32.3 - 35.7 g/dL [facility] RDW CV 15.8(H) 11.1 - 14.9 % [facility] RDW SD 53.3(H) 35.7 - 48.1 fL [facility] NRBC abs 0.07(H) 0.00 - 0.01 K/cumm [facility] Blood 03/09/2025 4:54 AM CDT 03/09/2025 4:54 AM CDT us Chase Keen MD LAB BLOOD ORDERABLES Final Resul t Performing Organization Address City/[facility]/ZIP Co de Phone Number [facility] [address] [place] [address] * (ABNORMAL) CRP (acute phase) (03/09/2025 4:54 AM CDT) [facility] CRP 100.3(H) <=10.0 mg/L Blood 03/09/2025 4:54 AM CDT 03/09/2025 4:54 AM CDT Chase Keen MD LAB BLOOD ORDERABLES Final Resul t Performing Organization Address City/[facility]/ZIP Co de Phone Number [facility] [address] [place] [address] * Amylase (03/09/2025 4:54 AM CDT) Amylase 73 30 - 99 Units/L Blood 03/09/2025 4:54 AM CDT 03/09/2025 4:54 AM CDT Gil Pierce MD LAB BLOOD ORDERABLES [facility] al Result [facility] [address] [place] [address] * (ABNORMAL) Comprehensive metabolic panel (03/09/2025 4:54 AM CDT) Pathologist [facility] Sodium 136 135 - 145 mmol/L Potassium, pl 4.8 3.3 - 4.9 mmol/L [facility] Chloride 102 97 - 110 mmol/L [facility] CO2 22 22 - 32 mmol/L [facility] Anion gap 12 2 - 15 mmol/L [facility] BUN 33(H) 6 - 25 mg/dL [facility] Creatinine 1.08 0.80 - 1.30 mg/dL [facility] Glucose 119 70 - 199 mg/dL [facility] Comment: Interpretive Data Fasting glucose >/= 126 [...] 2022. Calcium 8.0(L) 8.5 - 10.3 mg/dL [facility] Bilirubin, total 0.3 0.1 - 1.2 mg/dL [facility] Protein, pl 5.7(L) 6.5 - 8.5 g/dL [facility] Albumin 2.6(L) 3.5 - 5.0 g/dL [facility] Alk phos 79 40 - 130 Units/L [facility] ALT 25 7 - 55 Units/L [facility] AST 32 10 - 50 Units/L [facility] Blood 03/09/2025 4:54 AM CDT 03/09/2025 4:54 AM CDT Chase Keen MD LAB BLOOD ORDERABLES Final Resul t Performing Organization Address City/[facility]/ZIP Co de Phone Number [facility] [address] [place] [address] * (ABNORMAL) POCT glucose (03/08/2025 9:15 PM CDT) [facility] Glucose, POC 204(H) 70 - 199 mg/dL Comment: For Glucose values <35 mg/dl when Hematocrit is >60 mg/dl,the test may not accurately detect significant hypoglycemia,and testing in the Laboratory should be considered if clinically indicated. POC Performer [id number] [facility] Blood 03/08/2025 9:15 PM CDT 03/08/2025 9:15 PM CDT Chase Keen MD LAB POCT ORDERABLES - DEVICE Fin al Result Performing Organization Address [facility] Co de Phone Number [facility] [address] [place] [address] * CT Abdomen W Contrast (03/08/2025 5:36 [...] region Electronically signed by: Carlyn Regan M.D. Narrative 03/09/2025 6:53 AM CDT EXAM: [...] by: Carlyn Regan M.D. Chase Keen MD IMG CT PROCEDURES Final Result * CT Chest [...] no lytic or blastic lesions. Procedure Note Bierhals, Joe Guillermo, MD - 03/09/2025 EXAMINATION: CT CHEST WO [...] Joe Larson M.D., MPH Chase Keen MD [facility] CT PROCEDURES Final Result * POCT glucose (03/08/2025 5:01 PM CDT) [facility] Signature Glucose, POC 126 70 - 199 mg/dL Comment: For Glucose values <35 mg/dl when Hematocrit is >60 mg/dl,the test may not accurately detect significant hypoglycemia,and testing in the Laboratory should be considered if clinically indicated. POC Performer [id number] [facility] Blood 03/08/2025 5:01 PM CDT 03/08/2025 5:01 PM CDT Chase Keen MD LAB POCT ORDERABLES - DEVICE Fin al Result Performing Organization Address [facility] Co de Phone Number [facility] [address] [place] [address] * eGFR (03/08/2025 4:56 PM CDT) eGFR [...] ORDERABLES Final Resul t Performing Organization Address [facility]/ZIP Co de Phone Number [facility] [address] Department of Laboratories [place], [place] [id number] * (ABNORMAL) Comprehensive metabolic panel (03/08/2025 4:56 PM CDT) Pathologist [facility] Sodium 135 135 - 145 mmol/L Potassium, pl 4.6 3.3 - 4.9 mmol/L [facility] Chloride 102 97 - 110 mmol/L [facility] CO2 21(L) 22 - 32 mmol/L [facility] Anion gap 12 2 - 15 mmol/L [facility] BUN 33(H) 6 - 25 mg/dL [facility] Creatinine 1.11 0.80 - 1.30 mg/dL [facility] Glucose 126 70 - 199 mg/dL [facility] Comment: Interpretive Data Fasting glucose >/= 126 [...] 2022. Calcium 8.0(L) 8.5 - 10.3 mg/dL [facility] Bilirubin, total 0.4 0.1 - 1.2 mg/dL [facility] Protein, pl 5.7(L) 6.5 - 8.5 g/dL [facility] Albumin 2.4(L) 3.5 - 5.0 g/dL [facility] Alk phos 79 40 - 130 Units/L [facility] ALT 24 7 - 55 Units/L [facility] AST 30 10 - 50 Units/L [facility] Blood 03/08/2025 4:56 PM CDT 03/08/2025 5:02 PM CDT us Chase Keen MD LAB BLOOD ORDERABLES Final Resul t [facility] [address] [place] [address] * XR Chest 1 View (03/08/2025 4:51 [...] Electronically signed by: Emre Carlisle MD, PHD Suzette MCGUIRE IMG XR PROCEDURES Final Res ult * Blood culture Blood (03/08/2025 4:40 PM CDT) Report Final Report: No growth Blood 03/08/2025 4:40 PM CDT 03/08/2025 4:47 PM CDT Narrative [facility] - 03/14/2025 7:00 AM CDT From a [...] organism identification may be performed using the [employer] Blood Culture Identification panel. This assay detects microbial DNA in a blood culture broth. This assay has been cleared by the [facility] Food and Drug Administration and its performance characteristics have been verified by the [facility] Microbiology Laboratory. Interpretive data was last revised on November 09, 2022. Chase Keen MD [facility] MICROBIOLOGY - GENERAL ORDER [place] Final Result Performing Organization Address [facility] de Phone Number [facility] [address] [place] [address] * Blood culture Blood (03/08/2025 4:40 PM CDT) Report Final Report: No growth Blood 03/08/2025 4:40 PM CDT 03/08/2025 4:47 PM CDT Narrative [facility] - 03/14/2025 7:00 AM CDT Collection->Peripheral Interpretive [...] organism identification may be performed using the [employer] Blood Culture Identification panel. This assay detects microbial DNA in a blood culture broth. This assay has been cleared by the [place] Food and Drug Administration and its performance characteristics have been verified by the [facility] Microbiology Laboratory. Interpretive data was last revised on November 09, 2022. Chase Keen MD [facility] MICROBIOLOGY - GENERAL ORDER [place] Final Result Performing Organization Address [facility] de Phone Number [facility] [address] [place] [address] * GA INSJ NON-TUNNELED CENTRAL VENOUS CATH AGE 5 YR/> (03/08/2025 4:28 PM CDT) Narrative Suzette Sanabria PA - 03/08/2025 4:28 PM CDT Suzette Sanabria PA 03/08/2025 4:29 PM PICC Line Insertion Date/Time: 03/08/2025 4:28 PM Performed by: Suzette Sanabria PA Authorized by: Suzette Sanabria PA [place] Protocol: RN Notified of Procedure: yes Informed consent: Risks, benefits, alternatives discussed and 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 pH may affect urinary stone formation. For example, urine pH below 6.0 may help reduce the tendency for calcium phosphate stones and pH greater than 6.0 may reduce the tendency for uric acid stone formation. Source: [facility] Current Interpretive Data was last revised on 2017 Protein, ur ql Trace Negative [facility] Glucose, ur ql 4+(A) Negative [facility] Ketones, ur Negative Negative [facility] Bilirubin, ur Negative Negative [facility] Blood, ur Negative Negative [facility] Urobilinogen, ur <2.0 <2.0 mg/dL [facility] Nitrite, ur Negative Negative [facility] Leukocyte esterase, ur Negative Negative [facility] UA reflex comment Reflex conditions for microscopic UA not met. [facility] Urine 03/08/2025 3:11 PM CDT 03/08/2025 3:11 PM CDT us Chase Keen MD LAB URINE ORDERABLES Final Resul t Performing Organization Address City/[facility]/ZIP Co de Phone Number [facility] [address] [place] [address] * POCT glucose (03/08/2025 12:22 PM CDT) Glucose, POC 142 70 - 199 mg/dL Comment: For Glucose values <35 mg/dl when Hematocrit is >60 mg/dl,the test may not accurately detect significant hypoglycemia,and testing in the Laboratory should be considered if clinically indicated. POC Performer [id number] [facility] Blood 03/08/2025 12:2 2 PM CDT 03/08/2025 12:22 PM CDT Chase Keen MD LAB POCT ORDERABLES - DEVICE Fin al Result [facility] [address] Department [place] [address] * (ABNORMAL) Blood smear review (03/08/2025 10:29 AM CDT) [facility] RBC morphology Present(A) Anisocytosis Slight(A) [facility] Poikilocytosis Slight(A) [facility] Elliptocytes 3-7/HPF(A) [facility] Platelet estimate Adequate [facility] Morphology scrn See Comment [facility] Comment:PLT: Platelet morpho logy normal Blood 03/08/2025 10:2 9 AM CDT 03/08/2025 10:37 AM CDT us Chase Keen MD LAB BLOOD ORDERABLES Final Resul t [facility] [address] [place] [address] * (ABNORMAL) Differential, auto (03/08/2025 10:29 AM CDT) Pathologist [facility] Neutrophil abs 25.51(H) 1.50 - 6.50 K/cumm Imm gran abs 0.84(H) 0.00 - 0.10 K/cumm [facility] Lymphocyte abs 2.46 0.80 - 3.30 K/cumm [facility] Monocyte abs 2.43(H) 0.20 - 0.80 K/cumm [facility] Eosinophil abs 0.09 0.00 - 0.50 K/cumm [facility] Basophil abs 0.11(H) 0.00 - 0.10 K/cumm [facility] Neutrophil pct 81.2 % [facility] Comment: Interpretive Data Percent cell count reference ranges are not reported, since discordance with absolute values may lead to misinterpretation of CBC data. Current Interpretive Data was last revised on 2018. Imm gran pct 2.7 % [facility] Comment: Interpretive Data Percent cell count reference ranges are not reported, since discordance with absolute values may lead to misinterpretation of CBC data. Current Interpretive Data was last revised on 2018. Lymphocyte pct 7.8 % [facility] Comment: Interpretive Data Percent cell count reference ranges are not reported, since discordance with absolute values may lead to misinterpretation of CBC data. Current Interpretive Data was last revised on 2018. Monocyte pct 7.7 % [facility] Comment: Interpretive Data Percent cell count reference ranges are not reported, since discordance with absolute values may lead to misinterpretation of CBC data. Current Interpretive Data was last revised on 2018. Eosinophil pct 0.3 % [facility] Comment: Interpretive Data Percent cell count reference ranges are not reported, since discordance with absolute values may lead to misinterpretation of CBC data. Current Interpretive Data was last revised on 2018. Basophil pct 0.3 % [facility] Comment: Interpretive Data Percent cell count reference ranges are not reported, since discordance with absolute values may lead to misinterpretation of CBC data. Current Interpretive Data was last revised on 2018. Blood 03/08/2025 10:2 9 AM CDT 03/08/2025 10:37 AM CDT us Chase Keen MD LAB BLOOD ORDERABLES Final Resul t [facility] [address] [place] [address] * (ABNORMAL) CBC with auto differential (03/08/2025 10:29 AM CDT) WBC 31.44(H) 3.80 - 9.90 K/cumm Hgb 9.5(L) 13.0 - 17.5 g/dL [facility] Hct 30.6(L) 38.9 - 50.3 % [facility] Plt 283 150 - 400 K/cumm [facility] MPV 10.0 9.1 - 12.3 fL [facility] RBC 3.28(L) 4.30 - 5.80 M/cumm [facility] MCV 93.3 81.3 - 96.4 fL [facility] MCH 29.0 27.1 - 33.3 pg [facility] MCHC 31.0(L) 32.3 - 35.7 g/dL [facility] RDW CV 15.8(H) 11.1 - 14.9 % [facility] RDW SD 53.2(H) 35.7 - 48.1 fL [facility] NRBC abs 0.03(H) 0.00 - 0.01 K/cumm [facility] Morphologic Screen Results confirmed by manual morphology review. [facility] Blood 03/08/2025 10:2 9 AM CDT 03/08/2025 10:37 AM CDT Chase Keen MD LAB BLOOD ORDERABLES Edited Resu lt - Final Performing Organization Address [facility] Co de Phone Number [facility] [address] [place] [address] * POCT glucose (03/08/2025 6:12 AM CDT) Glucose, POC 155 70 - 199 mg/dL Comment: For Glucose values <35 mg/dl when Hematocrit is >60 mg/dl,the test may not accurately detect significant hypoglycemia,and testing in the Laboratory should be considered if clinically indicated. POC Performer [id number] [facility] Blood 03/08/2025 6:12 AM CDT 03/08/2025 6:12 AM CDT Result [facility] Chase Keen MD LAB POCT ORDERABLES - DEVICE Fin al Result Performing Organization Address [facility] de Phone Number [facility] [address] [facility] [place] [address] * POCT glucose (03/07/2025 9:08 PM CDT) Glucose, POC 110 70 - 199 mg/dL Comment: For Glucose values <35 mg/dl when Hematocrit is >60 mg/dl,the test may not accurately detect significant hypoglycemia,and testing in the Laboratory should be considered if clinically indicated. POC Performer [id number] [facility] Blood 03/07/2025 9:08 PM CDT 03/07/2025 9:08 PM CDT Chase Keen MD LAB POCT ORDERABLES - DEVICE Fin al Result Performing Organization Address [facility] Co de Phone Number [facility] [address] [facility] [place] [address] * Lactate (03/07/2025 8:19 PM CDT) Lactate 1.7 0.7 - 2.0 mmol/L Blood 03/07/2025 8:19 PM CDT 03/07/2025 8:23 PM CDT Chase Keen MD LAB BLOOD ORDERABLES Final Resul t Performing Organization Address [facility] de Phone Number [facility] [address] [place] [address] * XR Kub (03/07/2025 7:17 PM CDT) [...] wires at the superior margin of the [id number]. Calcified gallstone projecting over the expected region [...] wires at the superior margin of the [id number]. Calcified gallstone projecting over the expected region [...] be considered if clinically indicated. POC Performer [id number] [facility] Blood 03/07/2025 5:05 PM CDT 03/07/2025 5:05 PM CDT Chase Keen MD LAB POCT ORDERABLES - DEVICE Fin al Result [facility] [address] [place] [address] * (ABNORMAL) POCT glucose (03/07/2025 12:06 PM CDT) Glucose, POC 201(H) 70 - 199 mg/dL Comment: For Glucose values <35 mg/dl when Hematocrit is >60 mg/dl,the test may not accurately detect significant hypoglycemia,and testing in the Laboratory should be considered if clinically indicated. POC Performer [id number] [facility] Blood 03/07/2025 12:0 6 PM CDT 03/07/2025 12:06 PM CDT Chase Keen MD LAB POCT ORDERABLES - DEVICE Fin al Result Performing Organization Address [facility] Co de Phone Number [facility] [address] [facility] [place] [address] * (ABNORMAL) Hemoglobin and hematocrit (03/07/2025 9:28 AM CDT) Hgb 9.3(L) 13.0 - 17.5 g/dL Hct 29.3(L) 38.9 - 50.3 % [facility] Blood 03/07/2025 9:28 AM CDT 03/07/2025 9:35 AM CDT Maryjo Deshpande MD LAB BLOOD ORDERABLES Final R esult Performing Organization Address [facility] Co de Phone Number [facility] [address] [facility] [place] [address] * POCT glucose (03/07/2025 6:28 AM CDT) Glucose, POC 147 70 - 199 mg/dL Comment: For Glucose values <35 mg/dl when Hematocrit is >60 mg/dl,the test may not accurately detect significant hypoglycemia,and testing in the Laboratory should be considered if clinically indicated. POC Performer [id number] [facility] Blood 03/07/2025 6:28 AM CDT 03/07/2025 6:28 AM CDT Chase Keen MD LAB POCT ORDERABLES - DEVICE Fin al Result Performing Organization Address [facility] Co de Phone Number [facility] [address] [facility] [place] [address] * (ABNORMAL) Hemoglobin and hematocrit (03/07/2025 12:22 AM CDT) Hgb 8.5(L) 13.0 - 17.5 g/dL Hct 26.7(L) 38.9 - 50.3 % [facility] Blood 03/07/2025 12:2 2 AM CDT 03/07/2025 1:02 AM CDT Maryjo Deshpande MD LAB BLOOD ORDERABLES Final R esult Performing Organization Address [facility] Co de Phone Number [facility] [address] Department [place] [employer] [place], [place] [id number] * POCT glucose (03/06/2025 9:27 PM CDT) Glucose, POC 135 70 - 199 mg/dL Comment: For Glucose values <35 mg/dl when Hematocrit is >60 mg/dl,the test may not accurately detect significant hypoglycemia,and testing in the Laboratory should be considered if clinically indicated. POC Performer [id number] [facility] Blood 03/06/2025 9:27 PM CDT 03/06/2025 9:27 PM CDT Result [facility] Chase Keen MD LAB POCT ORDERABLES - DEVICE Fin al Result Performing Organization Address [facility] de Phone Number [facility] [address] [facility] [place] [address] * POCT glucose (03/06/2025 5:15 PM CDT) Glucose, POC 174 70 - 199 mg/dL Comment: For Glucose values <35 mg/dl when Hematocrit is >60 mg/dl,the test may not accurately detect significant hypoglycemia,and testing in the Laboratory should be considered if clinically indicated. POC Performer [id number] [facility] Blood 03/06/2025 5:15 PM CDT 03/06/2025 5:15 PM CDT Chase Keen MD LAB POCT ORDERABLES - DEVICE Fin al Result Performing Organization Address [facility]/ZIP Co de Phone Number [facility] [address] [place] [address] * (ABNORMAL) Hemoglobin and hematocrit (03/06/2025 4:55 PM CDT) Hgb 8.7(L) 13.0 - 17.5 g/dL Hct 28.2(L) 38.9 - 50.3 % [facility] Blood 03/06/2025 4:55 PM CDT 03/06/2025 5:10 PM CDT us Maryjo Deshpande MD LAB BLOOD ORDERABLES Final R esult Performing Organization Address [facility] Co de Phone Number [facility] [address] [place] [address] * US Vein Duplex Upper Extremity Right [...] by: Teodoro Law MD Chase Keen MD IMG US PROCEDURES Final Result * POCT glucose (03/06/2025 1:15 PM CDT) [facility] Glucose, POC 168 70 - 199 mg/dL Comment: For Glucose values <35 mg/dl when Hematocrit is >60 mg/dl,the test may not accurately detect significant hypoglycemia,and testing in the Laboratory should be considered if clinically indicated. POC Performer [id number] [facility] Blood 03/06/2025 1:15 PM CDT 03/06/2025 1:15 PM CDT Chase Keen MD LAB POCT ORDERABLES - DEVICE Fin al Result [facility] [address] [place] [address] * Iron profile - Add on lab test (03/06/2025 10:52 AM CDT) [facility] Acceptable Yes Blood 03/06/2025 10:5 2 AM CDT 03/06/2025 10:52 AM CDT Narrative [facility] - 03/06/2025 10:52 AM CDT Name of Test->Iron profile us Balbina Mac NP LAB BLOOD ORDERABLES Fi nal Result [facility] [address] [place] [address] * (ABNORMAL) Hemoglobin and hematocrit (03/06/2025 10:11 AM CDT) [facility] Hgb 8.8(L) 13.0 - 17.5 g/dL Hct 28.6(L) 38.9 - 50.3 % [facility] Blood 03/06/2025 10:1 1 AM CDT 03/06/2025 10:27 AM CDT Maryjo Deshpande MD LAB BLOOD ORDERABLES Final R esult [facility] [address] [place] [address] * POCT glucose (03/06/2025 6:29 AM CDT) [facility] Glucose, POC 123 70 - 199 mg/dL Comment: For Glucose values <35 mg/dl when Hematocrit is >60 mg/dl,the test may not accurately detect significant hypoglycemia,and testing in the Laboratory should be considered if clinically indicated. POC Performer [id number] [facility] Blood 03/06/2025 6:29 AM CDT 03/06/2025 6:29 AM CDT us Chase Halasa MD LAB POCT ORDERABLES - DEVICE Fin al Result Performing Organization Address [facility] Co de Phone Number [facility] [address] [facility] [place] [address] * (ABNORMAL) Hemoglobin and hematocrit (03/06/2025 12:26 AM CDT) Hgb 8.1(L) 13.0 - 17.5 g/dL Hct 25.6(L) 38.9 - 50.3 % [facility] Blood 03/06/2025 12:2 6 AM CDT 03/06/2025 12:43 AM CDT Maryjo Deshpande MD LAB BLOOD ORDERABLES Final R esult Performing Organization Address [facility] Co de Phone Number [facility] [address] [facility] [employer] [place], [place] [phone] * POCT glucose (03/05/2025 8:39 PM CDT) Glucose, POC 192 70 - 199 mg/dL Comment: For Glucose values <35 mg/dl when Hematocrit is >60 mg/dl,the test may not accurately detect significant hypoglycemia,and testing in the Laboratory should be considered if clinically indicated. POC Performer [id number] [facility] Blood 03/05/2025 8:39 PM CDT 03/05/2025 8:39 PM CDT Chase Keen MD LAB POCT ORDERABLES - DEVICE Fin al Result Performing Organization Address [facility] Co de Phone Number [facility] [address] [facility] [employer] [place], [place] [phone] * POCT glucose (03/05/2025 4:50 PM CDT) Glucose, POC 147 70 - 199 mg/dL Comment: For Glucose values <35 mg/dl when Hematocrit is >60 mg/dl,the test may not accurately detect significant hypoglycemia,and testing in the Laboratory should be considered if clinically indicated. POC Performer [id number] [facility] Blood 03/05/2025 4:50 PM CDT 03/05/2025 4:50 PM CDT Chase Keen MD LAB POCT ORDERABLES - DEVICE Fin al Result Performing Organization Address [facility] Co de Phone Number [facility] [address] [facility] [employer] [place], [place] [phone] * (ABNORMAL) Hemoglobin and hematocrit (03/05/2025 4:38 PM CDT) Hgb 8.6(L) 13.0 - 17.5 g/dL Hct 27.8(L) 38.9 - 50.3 % [facility] Blood 03/05/2025 4:38 PM CDT 03/05/2025 4:45 PM CDT Maryjo Deshpande MD LAB BLOOD ORDERABLES Final R esult Performing Organization Address [facility] Co de Phone Number [facility] [address] [facility] [employer] [place], [place] [phone] * POCT glucose (03/05/2025 12:32 PM CDT) Glucose, POC 164 70 - 199 mg/dL Comment: For Glucose values <35 mg/dl when Hematocrit is >60 mg/dl,the test may not accurately detect significant hypoglycemia,and testing in the Laboratory should be considered if clinically indicated. POC Performer [id number] [facility] Blood 03/05/2025 12:3 2 PM CDT 03/05/2025 12:32 PM CDT Chase Keen MD LAB POCT ORDERABLES - DEVICE Fin al Result Performing Organization Address City/[facility]/ZIP Co de Phone Number [facility] [address] [facility] [employer] [place], [place] [phone] * POCT glucose (03/05/2025 8:46 AM CDT) Glucose, POC 118 70 - 199 mg/dL Comment: For Glucose values <35 mg/dl when Hematocrit is >60 mg/dl,the test may not accurately detect significant hypoglycemia,and testing in the Laboratory should be considered if clinically indicated. POC Performer [id number] [facility] Blood 03/05/2025 8:46 AM CDT 03/05/2025 8:46 AM CDT us Chase Keen MD LAB POCT ORDERABLES - DEVICE Fin al Result Performing Organization Address City/[facility]/ZIP Co de Phone Number [facility] [address] [facility] [employer] [place], [place] [phone] * (ABNORMAL) Hemoglobin and hematocrit (03/05/2025 8:45 AM CDT) Hgb 8.7(L) 13.0 - 17.5 g/dL Hct 28.0(L) 38.9 - 50.3 % [facility] Blood 03/05/2025 8:45 AM CDT 03/05/2025 9:06 AM CDT us Maryjo Deshpande MD LAB BLOOD ORDERABLES Final R esult Performing Organization Address City/[facility]/ZIP Co de Phone Number [facility] [address] [place] [address] * POCT glucose (03/05/2025 6:39 AM CDT) Glucose, POC 136 70 - 199 mg/dL Comment: For Glucose values <35 mg/dl when Hematocrit is >60 mg/dl,the test may not accurately detect significant hypoglycemia,and testing in the Laboratory should be considered if clinically indicated. POC Performer [id number] [facility] Blood 03/05/2025 6:39 AM CDT 03/05/2025 6:39 AM CDT us Cathy Bear MD LAB POCT ORDERABLES - DEVICE Fi nal Result Performing Organization Address [facility] Co de Phone Number [facility] [address] [employer] [place] [address] * eGFR (03/05/2025 1:12 AM CDT) eGFR [...] ORDERABLES Final R esult Performing Organization Address [facility] Co de Phone Number [facility] [address] [employer] [place], [place] [phone] * (ABNORMAL) Iron profile w/ IBC (03/05/2025 1:12 AM CDT) Iron 11(L) 50 - 150 mcg/dL TIBC 165(L) 250 - 400 mcg/dL [facility] Transferrin saturation 7(L) 20 - 50 % [facility] Blood 03/05/2025 1:12 AM CDT 03/05/2025 2:07 AM CDT us Chase Keen MD LAB BLOOD ORDERABLES Final Resul t Performing Organization Address [facility] de Phone Number [facility] [address] [employer] [place], [place] [phone] * (ABNORMAL) CBC without differential (03/05/2025 1:12 AM CDT) WBC 23.20(H) 3.80 - 9.90 K/cumm Hgb 8.7(L) 13.0 - 17.5 g/dL [facility] Hct 27.7(L) 38.9 - 50.3 % [facility] Plt 365 150 - 400 K/cumm [facility] MPV 11.3 9.1 - 12.3 fL [facility] RBC 2.95(L) 4.30 - 5.80 M/cumm [facility] MCV 93.9 81.3 - 96.4 fL [facility] MCH 29.5 27.1 - 33.3 pg [facility] MCHC 31.4(L) 32.3 - 35.7 g/dL [facility] RDW CV 15.0(H) 11.1 - 14.9 % [facility] RDW SD 50.6(H) 35.7 - 48.1 fL [facility] NRBC abs 0.00 0.00 - 0.01 K/cumm [facility] Blood 03/05/2025 1:12 AM CDT 03/05/2025 2:07 AM CDT us Maryjo Deshpande MD LAB BLOOD ORDERABLES Final R esult Performing Organization Address City/[facility]/ZIP Co de Phone Number [facility] [address] [employer] [place], [place] [phone] * Magnesium (03/05/2025 1:12 AM CDT) Magnesium 2.0 1.4 - 2.5 mg/dL Blood 03/05/2025 1:12 AM CDT 03/05/2025 2:07 AM CDT us Maryjo Deshpande MD LAB BLOOD ORDERABLES Final R esult [facility] [address] [place] [address] * (ABNORMAL) Renal function panel (03/05/2025 1:12 AM CDT) Sodium 138 135 - 145 mmol/L Potassium, pl 4.2 3.3 - 4.9 mmol/L [facility] Chloride 103 97 - 110 mmol/L [facility] CO2 21(L) 22 - 32 mmol/L [facility] Anion gap 14 2 - 15 mmol/L [facility] BUN 53(H) 6 - 25 mg/dL [facility] Creatinine 1.08 0.80 - 1.30 mg/dL [facility] Glucose 146 70 - 199 mg/dL [facility] Comment: Interpretive Data Fasting glucose >/= 126 [...] 2022. Calcium 7.9(L) 8.5 - 10.3 mg/dL [facility] Phosphorus, pl 3.0 2.3 - 4.5 mg/dL [facility] Albumin 2.7(L) 3.5 - 5.0 g/dL [facility] Blood 03/05/2025 1:12 AM CDT 03/05/2025 2:07 AM CDT Maryjo Deshpande MD LAB BLOOD ORDERABLES Final R esult Performing Organization Address [facility] Co de Phone Number [facility] [address] [facility] [employer] [place], [place] [phone] * POCT glucose (03/04/2025 9:32 PM CDT) Glucose, POC 148 70 - 199 mg/dL Comment: For Glucose values <35 mg/dl when Hematocrit is >60 mg/dl,the test may not accurately detect significant hypoglycemia,and testing in the Laboratory should be considered if clinically indicated. POC Performer [id number] [facility] Blood 03/04/2025 9:32 PM CDT 03/04/2025 9:32 PM CDT Cathy Bear MD LAB POCT ORDERABLES - DEVICE Fi nal Result Performing Organization Address [facility] de Phone Number [facility] [address] [facility] [place] [address] * POCT glucose (03/04/2025 6:17 PM CDT) Glucose, POC 150 70 - 199 mg/dL Comment: For Glucose values <35 mg/dl when Hematocrit is >60 mg/dl,the test may not accurately detect significant hypoglycemia,and testing in the Laboratory should be considered if clinically indicated. POC Performer [id number] [facility] Blood 03/04/2025 6:17 PM CDT 03/04/2025 6:17 PM CDT Cathy Bear MD LAB POCT ORDERABLES - DEVICE Fi nal Result Performing Organization Address [facility] Co de Phone Number [facility] [address] [facility] [employer] [place], [place] [phone] * Sepsis Lactate w/ Reflex (03/04/2025 12:56 PM CDT) Sepsis Lactate 1.7 0.7 - 2.0 mmol/L Blood 03/04/2025 12:5 6 PM CDT 03/04/2025 1:08 PM CDT Suzette MCGUIRE LAB BLOOD ORDERABLES Final Result Performing Organization Address [facility] Co de Phone Number [facility] [address] [employer] [place], [place] [phone] * (ABNORMAL) eGFR (03/04/2025 12:56 PM CDT) [...] BLOOD ORDERABLES Final Result Performing Organization Address City/[facility]/ZIP Co de Phone Number [facility] [address] [employer] [place], [place] [phone] * (ABNORMAL) Hemoglobin and hematocrit (03/04/2025 12:56 PM CDT) Hgb 8.9(L) 13.0 - 17.5 g/dL Hct 28.4(L) 38.9 - 50.3 % [facility] Blood 03/04/2025 12:5 6 PM CDT 03/04/2025 1:15 PM CDT Maryjo Deshpande MD LAB BLOOD ORDERABLES Final R esult [facility] [address] [place] [address] * (ABNORMAL) Comprehensive metabolic panel (03/04/2025 12:56 PM CDT) Sodium 137 135 - 145 mmol/L Potassium, pl 4.2 3.3 - 4.9 mmol/L [facility] Chloride 103 97 - 110 mmol/L [facility] CO2 20(L) 22 - 32 mmol/L [facility] Anion gap 14 2 - 15 mmol/L [facility] BUN 65(H) 6 - 25 mg/dL [facility] Creatinine 1.36(H) 0.80 - 1.30 mg/dL [facility] Glucose 213(H) 70 - 199 mg/dL [facility] Comment: Interpretive Data Fasting glucose >/= 126 [...] 2022. Calcium 8.0(L) 8.5 - 10.3 mg/dL [facility] Bilirubin, total 0.5 0.1 - 1.2 mg/dL [facility] Protein, pl 6.0(L) 6.5 - 8.5 g/dL [facility] Albumin 2.7(L) 3.5 - 5.0 g/dL [facility] Alk phos 80 40 - 130 Units/L [facility] ALT 31 7 - 55 Units/L [facility] AST 42 10 - 50 Units/L [facility] Blood 03/04/2025 12:5 6 PM CDT 03/04/2025 1:12 PM CDT us Suzette MCGUIRE LAB BLOOD ORDERABLES Final Result Performing Organization Address City/[facility]/ZIP Co de Phone Number [facility] [address] [facility] [employer] [place], [place] [phone] * (ABNORMAL) POCT glucose (03/04/2025 12:32 PM CDT) Glucose, POC 243(H) 70 - 199 mg/dL Comment: For Glucose values <35 mg/dl when Hematocrit is >60 mg/dl,the test may not accurately detect significant hypoglycemia,and testing in the Laboratory should be considered if clinically indicated. POC Performer [id number] [facility] Blood 03/04/2025 12:3 2 PM CDT 03/04/2025 12:32 PM CDT us Cathy Bear MD LAB POCT ORDERABLES - DEVICE Fi nal Result Performing Organization Address [facility] Co de Phone Number [facility] [address] [facility] [employer] [place], [place] [phone] * (ABNORMAL) Hemoglobin and hematocrit (03/04/2025 7:54 AM CDT) [facility] Hgb 7.7(L) 13.0 - 17.5 g/dL Hct 25.4(L) 38.9 - 50.3 % [facility] Blood 03/04/2025 7:54 AM CDT 03/04/2025 8:02 AM CDT us Maryjo Deshpande MD LAB BLOOD ORDERABLES Final R esult Performing Organization Address City/[facility]/ZIP Co de Phone Number [facility] [address] [employer] [place], [place] [phone] * POCT glucose (03/04/2025 7:53 AM CDT) Glucose, POC 131 70 - 199 mg/dL Comment: For Glucose values <35 mg/dl when Hematocrit is >60 mg/dl,the test may not accurately detect significant hypoglycemia,and testing in the Laboratory should be considered if clinically indicated. POC Performer [id number] [facility] Blood 03/04/2025 7:53 AM CDT 03/04/2025 7:53 AM CDT Maryjo Deshpande MD LAB POCT ORDERABLES - DEVICE Final Result Performing Organization Address [facility] de Phone Number [facility] [address] [employer] [place] [address] * POCT glucose (03/04/2025 4:30 AM CDT) [facility] Glucose, POC 131 70 - 199 mg/dL Comment: For Glucose values <35 mg/dl when Hematocrit is >60 mg/dl,the test may not accurately detect significant hypoglycemia,and testing in the Laboratory should be considered if clinically indicated. POC Performer [id number] [facility] Blood 03/04/2025 4:30 AM CDT 03/04/2025 4:30 AM CDT Maryjo Deshpande MD LAB POCT ORDERABLES - DEVICE Final Result Performing Organization Address [facility] Co de Phone Number [facility] [address] [facility] [place] [address] * (ABNORMAL) eGFR (03/04/2025 12:55 AM CDT) Pathologist [facility] eGFR 48(L) >=60 mL/min/1. 73 m2 Comment: [...] MD LAB BLOOD ORDERABLES Final R esult [facility] [address] [place] [address] * (ABNORMAL) CBC without differential (03/04/2025 12:55 AM CDT) WBC 14.59(H) 3.80 - 9.90 K/cumm Hgb 7.5(L) 13.0 - 17.5 g/dL [facility] Hct 23.9(L) 38.9 - 50.3 % [facility] Plt 317 150 - 400 K/cumm [facility] MPV 11.4 9.1 - 12.3 fL [facility] RBC 2.56(L) 4.30 - 5.80 M/cumm [facility] MCV 93.4 81.3 - 96.4 fL [facility] MCH 29.3 27.1 - 33.3 pg [facility] MCHC 31.4(L) 32.3 - 35.7 g/dL [facility] RDW CV 14.8 11.1 - 14.9 % [facility] RDW SD 50.7(H) 35.7 - 48.1 fL [facility] NRBC abs 0.02(H) 0.00 - 0.01 K/cumm [facility] Blood 03/04/2025 12:5 5 AM CDT 03/04/2025 1:01 AM CDT Maryjo Deshpande MD LAB BLOOD ORDERABLES Final R esult Performing Organization Address [facility] Co de Phone Number [facility] [address] [facility] [place] [address] * Phosphorus (03/04/2025 12:55 AM CDT) Phosphorus, pl 2.5 2.3 - 4.5 mg/dL Blood 03/04/2025 12:5 5 AM CDT 03/04/2025 1:01 AM CDT Maryjo Deshpande MD LAB BLOOD ORDERABLES Final R esult Performing Organization Address [facility] Co de Phone Number [facility] [address] [facility] [place] [address] * Magnesium (03/04/2025 12:55 AM CDT) Magnesium 2.3 1.4 - 2.5 mg/dL Blood 03/04/2025 12:5 5 AM CDT 03/04/2025 1:01 AM CDT Maryjo Deshpande MD LAB BLOOD ORDERABLES Final R esult Performing Organization Address [facility] Co de Phone Number [facility] [address] [facility] [place] [address] * Bilirubin, direct (03/04/2025 12:55 AM CDT) Bilirubin, direct 0.2 0.1 - 0.3 mg/dL Blood 03/04/2025 12:5 5 AM CDT 03/04/2025 1:01 AM CDT us Maryjo Deshpande MD LAB BLOOD ORDERABLES Final R esult [facility] [address] [place] [address] * (ABNORMAL) Comprehensive metabolic panel (03/04/2025 12:55 AM CDT) Sodium 139 135 - 145 mmol/L Potassium, pl 3.5 3.3 - 4.9 mmol/L [facility] Chloride 104 97 - 110 mmol/L [facility] CO2 21(L) 22 - 32 mmol/L [facility] Anion gap 14 2 - 15 mmol/L [facility] BUN 76(H) 6 - 25 mg/dL [facility] Creatinine 1.53(H) 0.80 - 1.30 mg/dL [facility] Glucose 122 70 - 199 mg/dL [facility] Comment: Interpretive Data Fasting glucose >/= 126 [...] 2022. Calcium 7.6(L) 8.5 - 10.3 mg/dL [facility] Bilirubin, total 0.5 0.1 - 1.2 mg/dL [facility] Protein, pl 5.8(L) 6.5 - 8.5 g/dL [facility] Albumin 2.7(L) 3.5 - 5.0 g/dL [facility] Alk phos 71 40 - 130 Units/L [facility] ALT 29 7 - 55 Units/L [facility] AST 52(H) 10 - 50 Units/L [facility] Blood 03/04/2025 12:5 5 AM CDT 03/04/2025 1:01 AM CDT Maryjo Deshpande MD LAB BLOOD ORDERABLES Final R esult Performing Organization Address [facility] Co de Phone Number [facility] [address] [place] [address] * POCT glucose (03/04/2025 12:34 AM CDT) Glucose, POC 127 70 - 199 mg/dL Comment: For Glucose values <35 mg/dl when Hematocrit is >60 mg/dl,the test may not accurately detect significant hypoglycemia,and testing in the Laboratory should be considered if clinically indicated. POC Performer [id number] [facility] Blood 03/04/2025 12:3 4 AM CDT 03/04/2025 12:34 AM CDT Maryjo Deshpande MD LAB POCT ORDERABLES - DEVICE Final Result Performing Organization Address [facility] de Phone Number [facility] [address] [place] [address] * POCT glucose (03/03/2025 8:29 PM CDT) [facility] Glucose, POC 155 70 - 199 mg/dL Comment: For Glucose values <35 mg/dl when Hematocrit is >60 mg/dl,the test may not accurately detect significant hypoglycemia,and testing in the Laboratory should be considered if clinically indicated. POC Performer [id number] [facility] Blood 03/03/2025 8:29 PM CDT 03/03/2025 8:29 PM CDT Maryjo Deshpande MD LAB POCT ORDERABLES - DEVICE Final Result Performing Organization Address [facility] Co de Phone Number [facility] [address] [place] [address] * (ABNORMAL) Hemoglobin and hematocrit (03/03/2025 5:29 PM CDT) [facility] Hgb 7.8(L) 13.0 - 17.5 g/dL Hct 25.2(L) 38.9 - 50.3 % [facility] Blood 03/03/2025 5:29 PM CDT 03/03/2025 5:32 PM CDT Maryjo Deshpande MD LAB BLOOD ORDERABLES Final R esult Performing Organization Address [facility] Co de Phone Number [facility] [address] [facility] [employer] [place], [place] [phone] * POCT glucose (03/03/2025 5:15 PM CDT) [facility] Glucose, POC 156 70 - 199 mg/dL Comment: For Glucose values <35 mg/dl when Hematocrit is >60 mg/dl,the test may not accurately detect significant hypoglycemia,and testing in the Laboratory should be considered if clinically indicated. POC Performer [id number] [facility] Blood 03/03/2025 5:15 PM CDT 03/03/2025 5:15 PM CDT Maryjo Deshpande MD LAB POCT ORDERABLES - DEVICE Final Result Performing Organization Address [facility] de Phone Number [facility] [address] [facility] [employer] [place], [place] [phone] * (ABNORMAL) POCT glucose (03/03/2025 12:13 PM CDT) [facility] Glucose, POC 265(H) 70 - 199 mg/dL Comment: For Glucose values <35 mg/dl when Hematocrit is >60 mg/dl,the test may not accurately detect significant hypoglycemia,and testing in the Laboratory should be considered if clinically indicated. POC Performer [id number] [facility] Blood 03/03/2025 12:1 3 PM CDT 03/03/2025 12:13 PM CDT Maryjo Deshpande MD LAB POCT ORDERABLES - DEVICE Final Result Performing Organization Address [facility] Co de Phone Number [facility] [address] [facility] [employer] [place], [place] [phone] * (ABNORMAL) Hemoglobin and hematocrit (03/03/2025 9:10 AM CDT) Hgb 8.0(L) 13.0 - 17.5 g/dL Hct 25.7(L) 38.9 - 50.3 % [facility] Blood 03/03/2025 9:10 AM CDT 03/03/2025 9:25 AM CDT Maryjo Deshpande MD LAB BLOOD ORDERABLES Final R esult Performing Organization Address [facility] Co de Phone Number [facility] [address] [employer] [place], [place] [phone] * POCT glucose (03/03/2025 8:05 AM CDT) [facility] Glucose, POC 143 70 - 199 mg/dL Comment: For Glucose values <35 mg/dl when Hematocrit is >60 mg/dl,the test may not accurately detect significant hypoglycemia,and testing in the Laboratory should be considered if clinically indicated. POC Performer [id number] [facility] Blood 03/03/2025 8:05 AM CDT 03/03/2025 8:05 AM CDT Maryjo Deshpande MD LAB POCT ORDERABLES - DEVICE Final Result Performing Organization Address [facility] Co de Phone Number [facility] [address] [employer] [place], [place] [phone] * (ABNORMAL) eGFR (03/03/2025 5:13 AM CDT) [facility] eGFR 35(L) >=60 mL/min/1. 73 m2 Comment: [...] MD LAB BLOOD ORDERABLES Final R esult [facility] [address] [place] [address] * (ABNORMAL) CBC without differential (03/03/2025 5:13 AM CDT) WBC 14.06(H) 3.80 - 9.90 K/cumm Hgb 7.5(L) 13.0 - 17.5 g/dL [facility] Hct 23.6(L) 38.9 - 50.3 % [facility] Plt 296 150 - 400 K/cumm [facility] MPV 12.1 9.1 - 12.3 fL [facility] RBC 2.57(L) 4.30 - 5.80 M/cumm [facility] MCV 91.8 81.3 - 96.4 fL [facility] MCH 29.2 27.1 - 33.3 pg [facility] MCHC 31.8(L) 32.3 - 35.7 g/dL [facility] RDW CV 14.9 11.1 - 14.9 % [facility] RDW SD 49.9(H) 35.7 - 48.1 fL [facility] NRBC abs 0.00 0.00 - 0.01 K/cumm [facility] Blood 03/03/2025 5:13 AM CDT 03/03/2025 5:18 AM CDT Maryjo Deshpande MD LAB BLOOD ORDERABLES Final R esult Performing Organization Address City/[facility]/ZIP Co de Phone Number [facility] [address] [place] [address] * (ABNORMAL) Magnesium (03/03/2025 5:13 AM CDT) Pathologist [facility] Magnesium 2.6(H) 1.4 - 2.5 mg/dL Blood 03/03/2025 5:13 AM CDT 03/03/2025 5:19 AM CDT Maryjo Deshpande MD LAB BLOOD ORDERABLES Final R esult Performing Organization Address [facility] Co de Phone Number [facility] [address] [place] [address] * (ABNORMAL) Renal function panel (03/03/2025 5:13 AM CDT) Pathologist [facility] Sodium 141 135 - 145 mmol/L Potassium, pl 3.7 3.3 - 4.9 mmol/L [facility] Chloride 104 97 - 110 mmol/L [facility] [facility] CO2 21(L) 22 - 32 mmol/L [facility] Anion gap 16(H) 2 - 15 mmol/L [facility] BUN 97(H) 6 - 25 mg/dL [facility] Creatinine 1.98(H) 0.80 - 1.30 mg/dL [facility] Glucose 127 70 - 199 mg/dL [facility] Comment: Interpretive Data Fasting glucose >/= 126 [...] 2022. Calcium 8.1(L) 8.5 - 10.3 mg/dL [facility] Phosphorus, pl 3.6 2.3 - 4.5 mg/dL [facility] Albumin 2.8(L) 3.5 - 5.0 g/dL [facility] Blood 03/03/2025 5:13 AM CDT 03/03/2025 5:19 AM CDT Maryjo Deshpande MD LAB BLOOD ORDERABLES Final R esult Performing Organization Address [facility]/ZIP Co de Phone Number [facility] [address] Department [employer] [place], [place] [phone] * POCT glucose (03/03/2025 5:11 AM CDT) Glucose, POC 135 70 - 199 mg/dL Comment: For Glucose values <35 mg/dl when Hematocrit is >60 mg/dl,the test may not accurately detect significant hypoglycemia,and testing in the Laboratory should be considered if clinically indicated. POC Performer [phone] [facility] Blood 03/03/2025 5:11 AM CDT 03/03/2025 5:11 AM CDT Maryjo Deshpande MD LAB POCT ORDERABLES - DEVICE Final Result Performing Organization Address City/[facility]/ZIP Co de Phone Number [facility] [address] [place] [address] * (ABNORMAL) Hemoglobin and hematocrit (03/02/2025 11:36 PM CDT) Hgb 7.3(L) 13.0 - 17.5 g/dL Hct 22.8(L) 38.9 - 50.3 % [facility] Blood 03/02/2025 11:3 6 PM CDT 03/02/2025 11:44 PM CDT Maryjo Deshpande MD LAB BLOOD ORDERABLES Final R esult Performing Organization Address City/[facility]/ZIP Co de Phone Number [facility] [address] [facility] [employer] [place], [place] [phone] * POCT glucose (03/02/2025 11:35 PM CDT) Glucose, POC 146 70 - 199 mg/dL Comment: For Glucose values <35 mg/dl when Hematocrit is >60 mg/dl,the test may not accurately detect significant hypoglycemia,and testing in the Laboratory should be considered if clinically indicated. POC Performer [id number] [facility] Blood 03/02/2025 11:3 5 PM CDT 03/02/2025 11:35 PM CDT Maryjo Deshpande MD LAB POCT ORDERABLES - DEVICE Final Result Performing Organization Address [facility] Co de Phone Number [facility] [address] [facility] [employer] [place], [place] [phone] * POCT glucose (03/02/2025 7:57 PM CDT) Glucose, POC 189 70 - 199 mg/dL Comment: For Glucose values <35 mg/dl when Hematocrit is >60 mg/dl,the test may not accurately detect significant hypoglycemia,and testing in the Laboratory should be considered if clinically indicated. POC Performer [phone] [facility] Blood 03/02/2025 7:57 PM CDT 03/02/2025 7:57 PM CDT Maryjo Deshpande MD LAB POCT ORDERABLES - DEVICE Final Result Performing Organization Address City/[facility]/ZIP Co de Phone Number [facility] [address] [facility] [employer] [place], [place] [phone] * (ABNORMAL) Hemoglobin and hematocrit (03/02/2025 6:05 PM CDT) Hgb 7.8(L) 13.0 - 17.5 g/dL Hct 25.2(L) 38.9 - 50.3 % [facility] Blood 03/02/2025 6:05 PM CDT 03/02/2025 6:10 PM CDT us Maryjo Deshpande MD LAB BLOOD ORDERABLES Final R esult Performing Organization Address [facility] Co de Phone Number [facility] [address] [facility] [place] [address] * POCT glucose (03/02/2025 5:08 PM CDT) [facility] Signature Glucose, POC 150 70 - 199 mg/dL Comment: For Glucose values <35 mg/dl when Hematocrit is >60 mg/dl,the test may not accurately detect significant hypoglycemia,and testing in the Laboratory should be considered if clinically indicated. POC Performer [phone] [facility] Blood 03/02/2025 5:08 PM CDT 03/02/2025 5:08 PM CDT us Maryjo Deshpande MD LAB POCT ORDERABLES - DEVICE Final Result Performing Organization Address [facility] Co de Phone Number [facility] [address] [facility] [place] [address] * Lactate (03/02/2025 2:26 PM CDT) [facility] Lactate 1.0 0.7 - 2.0 mmol/L Blood 03/02/2025 2:26 PM CDT 03/02/2025 2:31 PM CDT Rehana Shipley DO LAB BLOOD ORDERABLES F inal Result Performing Organization Address City/[facility] Co de Phone Number [facility] [address] [place] [address] * (ABNORMAL) Hemoglobin and hematocrit (03/02/2025 2:26 PM CDT) Hgb 7.3(L) 13.0 - 17.5 g/dL Hct 22.8(L) 38.9 - 50.3 % [facility] Blood 03/02/2025 2:26 PM CDT 03/02/2025 2:35 PM CDT us Maryjo Deshpande MD LAB BLOOD ORDERABLES Final R esult [facility] [address] [place] [address] * XR Chest 1 View (03/02/2025 2:09 [...] No pneumothorax. Stable cardiomegaly. 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 POC Performer [phone] [facility] Blood 03/02/2025 12:2 5 PM CDT 03/02/2025 12:25 PM CDT us Maryjo Deshpande MD LAB POCT ORDERABLES - DEVICE Final Result Performing Organization Address City/[facility]/ZIP Co de Phone Number [facility] [address] [employer] [place], [place] [phone] * Lactate (03/02/2025 8:33 AM CDT) [facility] Lactate See Comment 0.7 - 2.0 Comment:Test results inaccur ately filed to this patient's record. Test will be credited. Specimen too old to run due to laboratory mechanical error. Recollect requested and RN informed 03/02/2025 09:57:34 CDT [id number] Blood 03/02/2025 8:33 AM CDT 03/02/2025 8:38 AM CDT us Rehana Shipley DO LAB BLOOD ORDERABLES F inal Result Performing Organization Address City/[facility]/ZIP Co de Phone Number [facility] [address] [place] [address] * (ABNORMAL) Blood smear review (03/02/2025 8:33 AM CDT) [facility] RBC morphology Present(A) Hypochromasia 3-7/HPF(A) [facility] Anisocytosis Slight(A) [facility] Elliptocytes 3-7/HPF(A) [facility] Platelet estimate Adequate [facility] Blood 03/02/2025 8:33 AM CDT 03/02/2025 8:38 AM CDT Rehana Shipley DO LAB BLOOD ORDERABLES F inal Result Performing Organization Address [facility] Co de Phone Number [facility] [address] [place] [address] * (ABNORMAL) eGFR (03/02/2025 8:33 AM CDT) eGFR 28(L) >=60 mL/min/1. 73 [...] ORDERABLES F inal Result Performing Organization Address [facility]/ZIP Co de Phone Number [facility] [address] [employer] [place], [place] [phone] * (ABNORMAL) Differential, auto (03/02/2025 8:33 AM CDT) Neutrophil abs 12.41(H) 1.50 - 6.50 K/cumm Imm gran abs 0.18(H) 0.00 - 0.10 K/cumm [facility] Lymphocyte abs 1.79 0.80 - 3.30 K/cumm [facility] Monocyte abs 1.70(H) 0.20 - 0.80 K/cumm [facility] Eosinophil abs 0.03 0.00 - 0.50 K/cumm [facility] Basophil abs 0.04 0.00 - 0.10 K/cumm [facility] Neutrophil pct 76.9 % [facility] Comment: Interpretive Data Percent cell count reference ranges are not reported, since discordance with absolute values may lead to misinterpretation of CBC data. Current Interpretive Data was last revised on 2018. Imm gran pct 1.1 % [facility] Comment: Interpretive Data Percent cell count reference ranges are not reported, since discordance with absolute values may lead to misinterpretation of CBC data. Current Interpretive Data was last revised on 2018. Lymphocyte pct 11.1 % [facility] Comment: Interpretive Data Percent cell count reference ranges are not reported, since discordance with absolute values may lead to misinterpretation of CBC data. Current Interpretive Data was last revised on 2018. Monocyte pct 10.5 % [facility] Comment: Interpretive Data Percent cell count reference ranges are not reported, since discordance with absolute values may lead to misinterpretation of CBC data. Current Interpretive Data was last revised on 2018. Eosinophil pct 0.2 % [facility] Comment: Interpretive Data Percent cell count reference ranges are not reported, since discordance with absolute values may lead to misinterpretation of CBC data. Current Interpretive Data was last revised on 2018. Basophil pct 0.2 % [facility] Comment: Interpretive Data Percent cell count reference ranges are not reported, since discordance with absolute values may lead to misinterpretation of CBC data. Current Interpretive Data was last revised on 2018. Blood 03/02/2025 8:33 AM CDT 03/02/2025 8:38 AM CDT us Rehana Shipley DO LAB BLOOD ORDERABLES F inal Result [facility] [address] [place] [address] * (ABNORMAL) CBC with auto differential (03/02/2025 8:33 AM CDT) [facility] WBC 16.15(H) 3.80 - 9.90 K/cumm Hgb 7.7(L) 13.0 - 17.5 g/dL [facility] Hct 25.1(L) 38.9 - 50.3 % [facility] Plt 240 150 - 400 K/cumm [facility] Comment:Clumped platelets. P latelet estimate Adequate. Per Gayatri Arshad RN, Platelet confirmation doesn't need to be ordered. MPV 12.9(H) 9.1 - 12.3 fL [facility] RBC 2.72(L) 4.30 - 5.80 M/cumm [facility] MCV 92.3 81.3 - 96.4 fL [facility] MCH 28.3 27.1 - 33.3 pg [facility] MCHC 30.7(L) 32.3 - 35.7 g/dL [facility] RDW CV 15.0(H) 11.1 - 14.9 % [facility] RDW SD 50.1(H) 35.7 - 48.1 fL [facility] NRBC abs 0.00 0.00 - 0.01 K/cumm [facility] Blood 03/02/2025 8:33 AM CDT 03/02/2025 8:38 AM CDT us Rehana Shipley DO LAB BLOOD ORDERABLES F inal Result [facility] [address] [place] [address] * (ABNORMAL) Protime-INR (03/02/2025 8:33 AM CDT) [facility] PT 17.8(H) 9.7 - 13.0 sec INR 1.63(H) 0.90 - 1.20 [facility] Comment: Interpretive data Oral anticoagulant therapeutic ranges: Venous thromboembolism prophylaxis or treatment: 2.0-3.0 CARDIOLOGY Standard range: 2.0-3.0 High-intensity range: 2.5-3.5 Refer to indication-specific guidelines for appropriate target ranges for prosthetic heart valve replacement. Current interpretive data was last revised on 2019. Blood 03/02/2025 8:33 AM CDT 03/02/2025 8:37 AM CDT Rehana Shipley LAB BLOOD ORDERABLES F inal Result Performing Organization Address [facility] Co de Phone Number [facility] [address] [facility] [employer] [place], [place] [phone] * (ABNORMAL) Magnesium (03/02/2025 8:33 AM CDT) Pathologist [facility] Magnesium 2.6(H) 1.4 - 2.5 mg/dL Blood 03/02/2025 8:33 AM CDT 03/02/2025 8:37 AM CDT [facility] BLOOD ORDERABLES F inal Result Performing Organization Address [facility] de Phone Number [facility] [address] [facility] [place] [address] * (ABNORMAL) Blood gas, venous (03/02/2025 8:33 AM CDT) pH, Venous 7.40 7.32 - 7.43 PCO2, Venous 33(L) 40 - 50 mmHg [facility] PO2, Venous 163 mmHg [facility] Comment: Interpretive Data No Reference Range Established Current Interpretive Data was last revised on 2018. HCO3 Venous, Calculated 20 20 - 30 mmol/L [facility] BE, venous -4 mmol/L [facility] Comment: nterpretive Data No Reference Range Established Current Interpretive Data was last revised on 2018. Blood 03/02/2025 8:33 AM CDT 03/02/2025 8:38 AM CDT us Rehana Kimbrough Violetta DO LAB BLOOD ORDERABLES F inal Result [facility] [address] [place] [address] * (ABNORMAL) Comprehensive metabolic panel (03/02/2025 8:33 AM CDT) Sodium 140 135 - 145 mmol/L Potassium, pl 3.9 3.3 - 4.9 mmol/L [facility] Chloride 104 97 - 110 mmol/L [facility] CO2 17(L) 22 - 32 mmol/L [facility] Anion gap 19(H) 2 - 15 mmol/L [facility] BUN 106(H) 6 - 25 mg/dL [facility] Creatinine 2.38(H) 0.80 - 1.30 mg/dL [facility] Glucose 98 70 - 199 mg/dL [facility] Comment: Interpretive Data Fasting glucose >/= 126 [...] 2022. Calcium 7.8(L) 8.5 - 10.3 mg/dL [facility] Bilirubin, total 0.4 0.1 - 1.2 mg/dL [facility] Protein, pl 5.8(L) 6.5 - 8.5 g/dL [facility] Albumin 2.6(L) 3.5 - 5.0 g/dL [facility] Alk phos 62 40 - 130 Units/L [facility] ALT 13 7 - 55 Units/L [facility] AST 37 10 - 50 Units/L [facility] Comment:Slightly Hemolyzed S pecimen Blood 03/02/2025 8:33 AM CDT 03/02/2025 8:37 AM CDT Rehana Shipley DO LAB BLOOD ORDERABLES F inal Result Performing Organization Address [facility] Co de Phone Number [facility] [address] [place] [address] * POCT glucose (03/02/2025 8:19 AM CDT) Glucose, POC 117 70 - 199 mg/dL Comment: For Glucose values <35 mg/dl when Hematocrit is >60 mg/dl,the test may not accurately detect significant hypoglycemia,and testing in the Laboratory should be considered if clinically indicated. POC Performer [phone] [facility] Blood 03/02/2025 8:19 AM CDT 03/02/2025 8:19 AM CDT us Maryjo Deshpande MD LAB POCT ORDERABLES - DEVICE Final Result Performing Organization Address [facility] Co de Phone Number [facility] [address] [place] [address] * POCT glucose (03/02/2025 4:09 AM CDT) Glucose, POC 125 70 - 199 mg/dL Comment: For Glucose values <35 mg/dl when Hematocrit is >60 mg/dl,the test may not accurately detect significant hypoglycemia,and testing in the Laboratory should be considered if clinically indicated. POC Performer [phone] [facility] Blood 03/02/2025 4:09 AM CDT 03/02/2025 4:09 AM CDT us Rehana Shipley DO LAB POCT ORDERABLES - DEVICE Final Result Performing Organization Address [facility] Co de Phone Number [facility] [address] [place] [address] * XR Chest 1 View (03/02/2025 3:53 [...] signed by: Emre Carlisle MD, PHD Rehana Shipley DO IMG XR PROCEDURES Madhavi l Result * (ABNORMAL) CBC without differential (03/02/2025 12:08 AM CDT) WBC 17.38(H) 3.80 - 9.90 K/cumm Hgb 7.9(L) 13.0 - 17.5 g/dL [facility] Hct 24.6(L) 38.9 - 50.3 % [facility] Plt 274 150 - 400 K/cumm [facility] MPV 12.7(H) 9.1 - 12.3 fL [facility] RBC 2.73(L) 4.30 - 5.80 M/cumm [facility] MCV 90.1 81.3 - 96.4 fL [facility] MCH 28.9 27.1 - 33.3 pg [facility] MCHC 32.1(L) 32.3 - 35.7 g/dL [facility] RDW CV 14.8 11.1 - 14.9 % [facility] RDW SD 48.9(H) 35.7 - 48.1 fL [facility] NRBC abs 0.00 0.00 - 0.01 K/cumm [facility] Blood 03/02/2025 12:0 8 AM CDT 03/02/2025 12:11 AM CDT Narrative [facility] - 03/02/2025 12:18 AM CDT While on heparin infusion us Rehana Shipley DO LAB BLOOD ORDERABLES F inal Result Performing Organization Address City/[facility]/ZIP Co de Phone Number [facility] [address] Department [employer] [place], [place] [phone] * POCT glucose (03/02/2025 12:03 AM CDT) Glucose, POC 125 70 - 199 mg/dL Comment: For Glucose values <35 mg/dl when Hematocrit is >60 mg/dl,the test may not accurately detect significant hypoglycemia,and testing in the Laboratory should be considered if clinically indicated. POC Performer [phone] [facility] Blood 03/02/2025 12:0 3 AM CDT 03/02/2025 12:03 AM CDT Rehana Shipley DO LAB POCT ORDERABLES - DEVICE Final Result Performing Organization Address [facility] Co de Phone Number [facility] [address] [employer] [place], [place] [phone] * Lactate (03/01/2025 8:07 PM CDT) Lactate 0.9 0.7 - 2.0 mmol/L Blood 03/01/2025 8:07 PM CDT 03/01/2025 8:11 PM CDT Rehana Shipley DO LAB BLOOD ORDERABLES F inal Result Performing Organization Address City/[facility] Co de Phone Number [facility] [address] [employer] [place], [place] [phone] * (ABNORMAL) Hemoglobin and hematocrit (03/01/2025 8:07 PM CDT) Hgb 7.8(L) 13.0 - 17.5 g/dL Hct 24.6(L) 38.9 - 50.3 % [facility] Blood 03/01/2025 8:07 PM CDT 03/01/2025 8:13 PM CDT Rehana Shipley LAB BLOOD ORDERABLES F inal Result Performing Organization Address [facility] Co de Phone Number [facility] [address] [place] [address] * POCT glucose (03/01/2025 8:05 PM CDT) [facility] Glucose, POC 112 70 - 199 mg/dL Comment: For Glucose values <35 mg/dl when Hematocrit is >60 mg/dl,the test may not accurately detect significant hypoglycemia,and testing in the Laboratory should be considered if clinically indicated. POC Performer [phone] [facility] Blood 03/01/2025 8:05 PM CDT 03/01/2025 8:05 PM CDT Rehana Shipley [facility] POCT ORDERABLES - DEVICE Final Result Performing Organization Address [facility] Co de Phone Number [facility] [address] [place] [address] * (ABNORMAL) Hemoglobin and hematocrit (03/01/2025 4:26 PM CDT) Hgb 8.8(L) 13.0 - 17.5 g/dL Hct 28.2(L) 38.9 - 50.3 % [facility] Blood 03/01/2025 4:26 PM CDT 03/01/2025 4:26 PM CDT Rehana Shipley [employer] LAB BLOOD ORDERABLES F inal Result Performing Organization Address [facility] Co de Phone Number [facility] [address] [facility] [place] [address] * aPTT (03/01/2025 4:26 PM CDT) aPTT 30 28 - 38 sec Comment: Interpretive Data Heparin therapeutic range: 66.0 - 100.0 seconds. Range based on correlation with therapeutic heparin activity range of 0.3 - 0.7 Units/mL. Current interpretive data was last revised on 2023. Blood 03/01/2025 4:26 PM CDT 03/01/2025 4:26 PM CDT Rehana Shipley [facility] BLOOD ORDERABLES F inal Result Performing Organization Address [facility] de Phone Number [facility] [address] [facility] [place] [address] * (ABNORMAL) Protime-INR (03/01/2025 4:26 PM CDT) PT 16.4(H) 9.7 - 13.0 sec INR 1.51(H) 0.90 - 1.20 [facility] Comment: Interpretive data Oral anticoagulant therapeutic ranges: Venous thromboembolism prophylaxis or treatment: 2.0-3.0 CARDIOLOGY Standard range: 2.0-3.0 High-intensity range: 2.5-3.5 Refer to indication-specific guidelines for appropriate target ranges for prosthetic heart valve replacement. Current interpretive data was last revised on 2019. Blood 03/01/2025 4:26 PM CDT 03/01/2025 4:26 PM CDT Rehana Shipley [employer] LAB BLOOD ORDERABLES F inal Result Performing Organization Address [facility] Co de Phone Number [facility] [address] [facility] [employer] [place], [place] [phone] * POCT glucose (03/01/2025 4:17 PM CDT) Glucose, POC 120 70 - 199 mg/dL Comment: For Glucose values <35 mg/dl when Hematocrit is >60 mg/dl,the test may not accurately detect significant hypoglycemia,and testing in the Laboratory should be considered if clinically indicated. POC Performer [phone] [facility] Blood 03/01/2025 4:17 PM CDT 03/01/2025 4:17 PM CDT Rehana Shipley [facility] POCT ORDERABLES - DEVICE Final Result Performing Organization Address [facility] de Phone Number [facility] [address] [facility] [place] [address] * (ABNORMAL) aPTT (03/01/2025 1:45 PM CDT) Pathologist [facility] aPTT 77(H) 28 - 38 sec Comment: Interpretive Data Heparin therapeutic range: 66.0 - 100.0 seconds. Range based on correlation with therapeutic heparin activity range of 0.3 - 0.7 Units/mL. Current interpretive data was last revised on 2023. Blood 03/01/2025 1:45 PM CDT 03/01/2025 2:13 PM CDT Rehanababak Shipley LAB BLOOD ORDERABLES F inal Result Performing Organization Address [facility] Co de Phone Number [facility] [address] [facility] [employer] [place], [place] [phone] * (ABNORMAL) Protime-INR (03/01/2025 1:45 PM CDT) Pathologist [facility] PT 16.7(H) 9.7 - 13.0 sec INR 1.53(H) 0.90 - 1.20 [facility] Comment: Interpretive data Oral anticoagulant therapeutic ranges: Venous thromboembolism prophylaxis or treatment: 2.0-3.0 CARDIOLOGY Standard range: 2.0-3.0 High-intensity range: 2.5-3.5 Refer to indication-specific guidelines for appropriate target ranges for prosthetic heart valve replacement. Current interpretive data was last revised on 2019. Blood 03/01/2025 1:45 PM CDT 03/01/2025 2:13 PM CDT Rehana Shipley DO LAB BLOOD ORDERABLES F inal Result Performing Organization Address City/[facility]/ZIP Co de Phone Number [facility] [address] [place] [address] * Type and screen (03/01/2025 1:45 PM CDT) Pathologist [facility] ABO Rh B Positive Esme, indirect Negative [facility] Blood 03/01/2025 1:45 PM CDT 03/01/2025 2:11 PM CDT Narrative [facility] - 03/01/2025 2:52 PM CDT Has the patient had Daratumumab or Isatuximab in the past 6 months?->Unknown Rehana Shipley DO LAB BLOOD BANK TEST OR DERABLES Final Result Performing Organization Address City/[facility]/ZIP Co de Phone Number [facility] [address] [place] [address] * Prepare RBC: 1 Units (03/01/2025 1:37 PM CDT) Product code [id number] Unit Number [id number] [id number] [facility] Product Blood Type BPOS [facility] Dispense Status RETURNED [facility] Blood 03/01/2025 1:37 PM CDT Narrative [facility] - 03/05/2025 7:20 AM CDT Are special requirements needed? (All products are leukoreduced and CMV- safe)- >No Date required:-[id number] LRRBC # of [id number] Reasons:-Hemorrhagic shock/Life-threatening bleeding} us Rehana Shipley DO BLOOD BANK PRODUCT ORD ERABLES Final Result [facility] [address] [place] [address] * CT Abdomen Pelvis WO Contrast (03/01/2025 [...] signed by: Ananda Cadet M.D. us Rehana Shipley DO IMG CT PROCEDURES Madhavi [...] it. Electronically signed by: Maryjo Liu MD Narrative 03/01/2025 1:38 PM CDT EXAMINATION: CT head [...] * Lactate (03/01/2025 12:51 PM CDT) Pathologist [facility] Lactate 1.1 0.7 - 2.0 mmol/L Blood 03/01/2025 12:5 1 PM CDT 03/01/2025 1:00 PM CDT Rehana Shipley DO LAB BLOOD ORDERABLES F inal Result [facility] [address] [place] [address] * (ABNORMAL) eGFR (03/01/2025 12:51 PM CDT) eGFR 24(L) >=60 mL/min/1. 73 m2 [...] DO LAB BLOOD ORDERABLES F inal Result [facility] [address] [employer] [place] [address] * (ABNORMAL) Hemoglobin and hematocrit (03/01/2025 12:51 PM CDT) Pathologist [facility] Hgb 8.9(L) 13.0 - 17.5 g/dL Hct 27.6(L) 38.9 - 50.3 % [facility] Blood 03/01/2025 12:5 1 PM CDT 03/01/2025 1:02 PM CDT Rehana Shipley DO LAB BLOOD ORDERABLES F inal Result [facility] [address] [place] [address] * (ABNORMAL) Comprehensive metabolic panel (03/01/2025 12:51 PM CDT) Sodium 134(L) 135 - 145 mmol/L Potassium, pl 4.2 3.3 - 4.9 mmol/L [facility] Chloride 96(L) 97 - 110 mmol/L [facility] CO2 20(L) 22 - 32 mmol/L [facility] Anion gap 18(H) 2 - 15 mmol/L [facility] BUN 108(H) 6 - 25 mg/dL [facility] Creatinine 2.74(H) 0.80 - 1.30 mg/dL [facility] Glucose 133 70 - 199 mg/dL [facility] Comment: Interpretive Data Fasting glucose >/= 126 [...] 2022. Calcium 8.4(L) 8.5 - 10.3 mg/dL [facility] Bilirubin, total 0.3 0.1 - 1.2 mg/dL [facility] Protein, pl 5.9(L) 6.5 - 8.5 g/dL [facility] Albumin 2.6(L) 3.5 - 5.0 g/dL [facility] Alk phos 72 40 - 130 Units/L [facility] ALT 11 7 - 55 Units/L [facility] AST 34 10 - 50 Units/L [facility] Blood 03/01/2025 12:5 1 PM CDT 03/01/2025 1:02 PM CDT us Rehana Shipley DO LAB BLOOD ORDERABLES F inal Result [facility] [address] [place] [address] * POCT glucose (03/01/2025 11:25 AM CDT) Glucose, POC 161 70 - 199 mg/dL Comment: For Glucose values <35 mg/dl when Hematocrit is >60 mg/dl,the test may not accurately detect significant hypoglycemia,and testing in the Laboratory should be considered if clinically indicated. POC Performer [phone] [facility] Blood 03/01/2025 11:2 5 AM CDT 03/01/2025 11:25 AM CDT Rehana Shipley [facility] POCT ORDERABLES - DEVICE Final Result Performing Organization Address [facility] de Phone Number [facility] [address] [place] [address] * POCT glucose (03/01/2025 8:33 AM CDT) Glucose, POC 149 70 - 199 mg/dL Comment: For Glucose values <35 mg/dl when Hematocrit is >60 mg/dl,the test may not accurately detect significant hypoglycemia,and testing in the Laboratory should be considered if clinically indicated. POC Performer [id number] [facility] Blood 03/01/2025 8:33 AM CDT 03/01/2025 8:33 AM CDT Rehana Shipley [facility] POCT ORDERABLES - DEVICE Final Result Performing Organization Address [facility] Co de Phone Number [facility] [address] [place] [address] * POCT glucose (03/01/2025 4:39 AM CDT) Glucose, POC 131 70 - 199 mg/dL Comment: For Glucose values <35 mg/dl when Hematocrit is >60 mg/dl,the test may not accurately detect significant hypoglycemia,and testing in the Laboratory should be considered if clinically indicated. POC Performer [id number] [facility] Blood 03/01/2025 4:39 AM CDT 03/01/2025 4:39 AM CDT Rehana Shipley DO LAB POCT ORDERABLES - DEVICE Final Result [facility] [address] [place] [address] * XR Chest 1 View (03/01/2025 4:14 [...] * (ABNORMAL) eGFR (03/01/2025 2:45 AM CDT) [facility] eGFR 24(L) >=60 mL/min/1. 73 m2 Comment: [...] DO LAB BLOOD ORDERABLES F inal Result [facility] [address] [place] [address] * (ABNORMAL) Differential, auto (03/01/2025 2:45 AM CDT) Neutrophil abs 15.68(H) 1.50 - 6.50 K/cumm Imm gran abs 0.19(H) 0.00 - 0.10 K/cumm [facility] Lymphocyte abs 2.32 0.80 - 3.30 K/cumm [facility] Monocyte abs 1.64(H) 0.20 - 0.80 K/cumm [facility] Eosinophil abs 0.02 0.00 - 0.50 K/cumm [facility] Basophil abs 0.07 0.00 - 0.10 K/cumm [facility] Neutrophil pct 78.7 % [facility] Comment: Interpretive Data Percent cell count reference ranges are not reported, since discordance with absolute values may lead to misinterpretation of CBC data. Current Interpretive Data was last revised on 2018. Imm gran pct 1.0 % [facility] Comment: Interpretive Data Percent cell count reference ranges are not reported, since discordance with absolute values may lead to misinterpretation of CBC data. Current Interpretive Data was last revised on 2018. Lymphocyte pct 11.6 % [facility] Comment: Interpretive Data Percent cell count reference ranges are not reported, since discordance with absolute values may lead to misinterpretation of CBC data. Current Interpretive Data was last revised on 2018. Monocyte pct 8.2 % [facility] Comment: Interpretive Data Percent cell count reference ranges are not reported, since discordance with absolute values may lead to misinterpretation of CBC data. Current Interpretive Data was last revised on 2018. Eosinophil pct 0.1 % [facility] Comment: Interpretive Data Percent cell count reference ranges are not reported, since discordance with absolute values may lead to misinterpretation of CBC data. Current Interpretive Data was last revised on 2018. Basophil pct 0.4 % [facility] Comment: Interpretive Data Percent cell count reference ranges are not reported, since discordance with absolute values may lead to misinterpretation of CBC data. Current Interpretive Data was last revised on 2018. Blood 03/01/2025 2:45 AM CDT 03/01/2025 2:56 AM CDT us Rehana Shipley DO LAB BLOOD ORDERABLES F inal Result [facility] [address] [place] [address] * (ABNORMAL) CBC with auto differential (03/01/2025 2:45 AM CDT) WBC 19.92(H) 3.80 - 9.90 K/cumm Hgb 10.7(L) 13.0 - 17.5 g/dL [facility] Hct 34.5(L) 38.9 - 50.3 % [facility] Plt 291 150 - 400 K/cumm [facility] MPV 12.8(H) 9.1 - 12.3 fL [facility] RBC 3.75(L) 4.30 - 5.80 M/cumm [facility] MCV 92.0 81.3 - 96.4 fL [facility] MCH 28.5 27.1 - 33.3 pg [facility] MCHC 31.0(L) 32.3 - 35.7 g/dL [facility] RDW CV 14.9 11.1 - 14.9 % [facility] RDW SD 49.9(H) 35.7 - 48.1 fL [facility] NRBC abs 0.00 0.00 - 0.01 K/cumm [facility] Blood 03/01/2025 2:45 AM CDT 03/01/2025 2:56 AM CDT Rehana Shipley DO LAB BLOOD ORDERABLES F inal Result [facility] [address] [place] [address] * Blood culture Blood (03/01/2025 2:45 AM CDT) Report Final Report: No growth Blood 03/01/2025 2:45 AM CDT 03/01/2025 2:58 AM CDT Narrative [facility] - 03/06/2025 7:01 AM CDT From a [...] organism identification may be performed using the [employer] Blood Culture Identification panel. This assay detects microbial DNA in a blood culture broth. This assay has been cleared by the [place] Food and Drug Administration and its performance characteristics have been verified by the [facility]. Interpretive data was last revised on November 09, 2022. Rehana Shipley DO LAB MICROBIOLOGY - GEN ERAL ORDERABLES Final Result [facility] [address] [facility] [place] [address] * Blood culture Blood (03/01/2025 2:45 AM CDT) Report Final Report: No growth Blood 03/01/2025 2:45 AM CDT 03/01/2025 2:58 AM CDT Narrative [facility] - 03/06/2025 7:01 AM CDT Interpretive Data [...] organism identification may be performed using the [employer] Blood Culture Identification panel. This assay detects microbial DNA in a blood culture broth. This assay has been cleared by the [place] Food and Drug Administration and its performance characteristics have been verified by the [facility]. Interpretive data was last revised on November 09, 2022. Rehana Shipley DO LAB MICROBIOLOGY - GEN ERAL ORDERABLES Final Result Performing Organization Address [facility] de Phone Number [facility] [address] [place] [address] * (ABNORMAL) aPTT (03/01/2025 2:45 AM CDT) aPTT 80(H) 28 - 38 sec Comment: Interpretive Data Heparin therapeutic range: 66.0 - 100.0 seconds. Range based on correlation with therapeutic heparin activity range of 0.3 - 0.7 Units/mL. Current interpretive data was last revised on 2023. Blood 03/01/2025 2:45 AM CDT 03/01/2025 2:57 AM CDT Rehanababak Shipley DO LAB BLOOD ORDERABLES F inal Result Performing Organization Address [facility]/ZIP Co de Phone Number [facility] [address] [place] [address] * (ABNORMAL) Magnesium (03/01/2025 2:45 AM CDT) Pathologist [facility] Magnesium 2.7(H) 1.4 - 2.5 mg/dL Blood 03/01/2025 2:45 AM CDT 03/01/2025 2:58 AM CDT us Rehanababak Shipley DO LAB BLOOD ORDERABLES F inal Result Performing Organization Address [facility] Co de Phone Number [facility] [address] [place] [address] * (ABNORMAL) Renal function panel (03/01/2025 2:45 AM CDT) [facility] Sodium 136 135 - 145 mmol/L Potassium, pl 4.4 3.3 - 4.9 mmol/L [facility] Chloride 96(L) 97 - 110 mmol/L [facility] CO2 21(L) 22 - 32 mmol/L [facility] Anion gap 19(H) 2 - 15 mmol/L [facility] BUN 103(H) 6 - 25 mg/dL [facility] Creatinine 2.77(H) 0.80 - 1.30 mg/dL [facility] Glucose 132 70 - 199 mg/dL [facility] Comment: Interpretive Data Fasting glucose >/= 126 [...] 2022. Calcium 8.7 8.5 - 10.3 mg/dL [facility] Phosphorus, pl 6.0(H) 2.3 - 4.5 mg/dL [facility] Albumin 2.9(L) 3.5 - 5.0 g/dL [facility] Blood 03/01/2025 2:45 AM CDT 03/01/2025 2:58 AM CDT Rehana Shipley DO LAB BLOOD ORDERABLES F inal Result Performing Organization Address [facility]/ZIP Co de Phone Number [facility] [address] [place] [address] * POCT glucose (03/01/2025 12:44 AM CDT) Glucose, POC 152 70 - 199 mg/dL Comment: For Glucose values <35 mg/dl when Hematocrit is >60 mg/dl,the test may not accurately detect significant hypoglycemia,and testing in the Laboratory should be considered if clinically indicated. POC Performer [id number] [facility] Blood 03/01/2025 12:4 4 AM CDT 03/01/2025 12:44 AM CDT Rehana Shipley DO LAB POCT ORDERABLES - DEVICE Final Result Performing Organization Address [facility] Co de Phone Number [facility] [address] [place] [address] * POCT glucose (02/28/2025 7:57 PM CDT) Glucose, POC 171 70 - 199 mg/dL Comment: For Glucose values <35 mg/dl when Hematocrit is >60 mg/dl,the test may not accurately detect significant hypoglycemia,and testing in the Laboratory should be considered if clinically indicated. POC Performer [id number] [facility] Blood 02/28/2025 7:57 PM CDT 02/28/2025 7:57 PM CDT Rehana Shipley DO LAB POCT ORDERABLES - DEVICE Final Result Performing Organization Address [facility] Co de Phone Number [facility] [address] [facility] [employer] [place], [place] [id number] * POCT glucose (02/28/2025 5:16 PM CDT) Glucose, POC 164 70 - 199 mg/dL Comment: For Glucose values <35 mg/dl when Hematocrit is >60 mg/dl,the test may not accurately detect significant hypoglycemia,and testing in the Laboratory should be considered if clinically indicated. POC Performer [id number] [facility] Blood 02/28/2025 5:16 PM CDT 02/28/2025 5:16 PM CDT Rehana Shipley DO LAB POCT ORDERABLES - DEVICE Final Result Performing Organization Address [facility] de Phone Number [facility] [address] [facility] [place] [address] * (ABNORMAL) aPTT (02/28/2025 2:53 PM CDT) [...] ORDERABLES F inal Result Performing Organization Address [facility] Co de Phone Number [facility] [address] [facility] [employer] [place], [place] [id number] * (ABNORMAL) POCT glucose (02/28/2025 12:49 PM CDT) Glucose, POC 201(H) 70 - 199 mg/dL Comment: For Glucose values <35 mg/dl when Hematocrit is >60 mg/dl,the test may not accurately detect significant hypoglycemia,and testing in the Laboratory should be considered if clinically indicated. POC Performer [id number] [facility] Blood 02/28/2025 12:4 9 PM CDT 02/28/2025 12:49 PM CDT Rehana Shipley DO LAB POCT ORDERABLES - DEVICE Final Result Performing Organization Address [facility] Co de Phone Number [facility] [address] [place] [address] * (ABNORMAL) aPTT (02/28/2025 8:10 AM CDT) [...] ORDERABLES Madhavi l Result Performing Organization Address [facility] Co de Phone Number [facility] [address] [place] [address] * POCT glucose (02/28/2025 8:04 AM CDT) Glucose, POC 129 70 - 199 mg/dL Comment: For Glucose values <35 mg/dl when Hematocrit is >60 mg/dl,the test may not accurately detect significant hypoglycemia,and testing in the Laboratory should be considered if clinically indicated. POC Performer [id number] [facility] Blood 02/28/2025 8:04 AM CDT 02/28/2025 8:04 AM CDT Rehana Kaylan Barks DO LAB POCT ORDERABLES - DEVICE Final Result Performing Organization Address [facility] Co de Phone Number [facility] [address] [facility] [place] [address] * POCT glucose (02/28/2025 4:14 AM CDT) Glucose, POC 122 70 - 199 mg/dL Comment: For Glucose values <35 mg/dl when Hematocrit is >60 mg/dl,the test may not accurately detect significant hypoglycemia,and testing in the Laboratory should be considered if clinically indicated. POC Performer [phone] [facility] Blood 02/28/2025 4:14 AM CDT 02/28/2025 4:14 AM CDT Rehana Shipley DO LAB POCT ORDERABLES - DEVICE Final Result Performing Organization Address [facility] de Phone Number [facility] [address] [place] [address] * XR Chest 1 View (02/28/2025 3:49 AM CDT) Anatomical Region Laterality Modality Body, Chest N/A Computed Radiogr aphy 02/28/2025 8:5 8 AM CDT Impressions 02/28/2025 8:58 AM CDT [...] effusions. Electronically signed by: Syed Ch MD us Rehana Shipley DO IMG XR PROCEDURES Madhavi l Result * Lactate (02/28/2025 1:21 AM CDT) Lactate 0.7 0.7 - 2.0 mmol/L Blood 02/28/2025 1:21 AM CDT 02/28/2025 1:24 AM CDT Rehana Shipley DO LAB BLOOD ORDERABLES F inal Result [facility] [address] [place] [address] * (ABNORMAL) eGFR (02/28/2025 1:21 AM CDT) [...] CDT 02/28/2025 1:33 AM CDT us Rehana Kaylan Violetta DO LAB BLOOD ORDERABLES F inal Result [facility] [address] [place] [address] * (ABNORMAL) Differential, auto (02/28/2025 1:21 AM CDT) Neutrophil abs 13.25(H) 1.50 - 6.50 K/cumm Imm gran abs 0.15(H) 0.00 - 0.10 K/cumm [facility] Lymphocyte abs 2.15 0.80 - 3.30 K/cumm [facility] Monocyte abs 1.67(H) 0.20 - 0.80 K/cumm [facility] Eosinophil abs 0.19 0.00 - 0.50 K/cumm [facility] Basophil abs 0.07 0.00 - 0.10 K/cumm [facility] Neutrophil pct 75.7 % [facility] Comment: Interpretive Data Percent cell count reference ranges are not reported, since discordance with absolute values may lead to misinterpretation of CBC data. Current Interpretive Data was last revised on 2018. Imm gran pct 0.9 % [facility] Comment: Interpretive Data Percent cell count reference ranges are not reported, since discordance with absolute values may lead to misinterpretation of CBC data. Current Interpretive Data was last revised on 2018. Lymphocyte pct 12.3 % [facility] Comment: Interpretive Data Percent cell count reference ranges are not reported, since discordance with absolute values may lead to misinterpretation of CBC data. Current Interpretive Data was last revised on 2018. Monocyte pct 9.6 % [facility] Comment: Interpretive Data Percent cell count reference ranges are not reported, since discordance with absolute values may lead to misinterpretation of CBC data. Current Interpretive Data was last revised on 2018. Eosinophil pct 1.1 % [facility] Comment: Interpretive Data Percent cell count reference ranges are not reported, since discordance with absolute values may lead to misinterpretation of CBC data. Current Interpretive Data was last revised on 2018. Basophil pct 0.4 % [facility] Comment: Interpretive Data Percent cell count reference ranges are not reported, since discordance with absolute values may lead to misinterpretation of CBC data. Current Interpretive Data was last revised on 2018. Blood 02/28/2025 1:21 AM CDT 02/28/2025 1:32 AM CDT Rehana Shipley DO LAB BLOOD ORDERABLES F inal Result Performing Organization Address [facility]/ZIP Co de Phone Number [facility] [address] [facility] [place] [address] * (ABNORMAL) Procalcitonin (02/28/2025 1:21 AM CDT) Pathologist [facility] Procalcitonin 0.29(H) <=0.25 ng/mL Blood 02/28/2025 1:21 AM CDT 02/28/2025 1:33 AM CDT Rehana Camposrice Violetta DO LAB BLOOD ORDERABLES F inal Result Performing Organization Address [facility] Co de Phone Number [facility] [address] [facility] [employer] [place], [place] [id number] * Thyroid Function [place] (02/28/2025 1:21 AM CDT) Pathologist [facility] TSH 3.26 0.30 - 4.20 mcIUnit/mL Blood 02/28/2025 1:21 AM CDT 02/28/2025 1:33 AM CDT Rehana Shipley DO LAB BLOOD ORDERABLES F inal Result Performing Organization Address City/[facility] Co de Phone Number [facility] [address] [place] [address] * (ABNORMAL) CBC with auto differential (02/28/2025 1:21 AM CDT) WBC 17.48(H) 3.80 - 9.90 K/cumm Hgb 12.5(L) 13.0 - 17.5 g/dL [facility] Hct 39.7 38.9 - 50.3 % [facility] Plt 260 150 - 400 K/cumm [facility] MPV 12.7(H) 9.1 - 12.3 fL [facility] RBC 4.35 4.30 - 5.80 M/cumm [facility] MCV 91.3 81.3 - 96.4 fL [facility] MCH 28.7 27.1 - 33.3 pg [facility] MCHC 31.5(L) 32.3 - 35.7 g/dL [facility] RDW CV 15.3(H) 11.1 - 14.9 % [facility] RDW SD 51.0(H) 35.7 - 48.1 fL [facility] NRBC abs 0.00 0.00 - 0.01 K/cumm [facility] Blood 02/28/2025 1:21 AM CDT 02/28/2025 1:32 AM CDT us Rehana Shipley DO LAB BLOOD ORDERABLES F inal Result [facility] [address] [place] [address] * (ABNORMAL) aPTT (02/28/2025 1:21 AM CDT) Pathologist [facility] aPTT 60(H) 28 - 38 sec Comment: Interpretive Data Heparin therapeutic range: 66.0 - 100.0 seconds. Range based on correlation with therapeutic heparin activity range of 0.3 - 0.7 Units/mL. Current interpretive data was last revised on 2023. Blood 02/28/2025 1:21 AM CDT 02/28/2025 1:27 AM CDT us Evgeny Villalba MD LAB BLOOD ORDERABLES Madhavi l Result Performing Organization Address City/[facility]/ZIP Co de Phone Number [facility] [address] [facility] [employer] [place], [place] [id number] * (ABNORMAL) Phosphorus (02/28/2025 1:21 AM CDT) [facility] Phosphorus, pl 4.6(H) 2.3 - 4.5 mg/dL Blood 02/28/2025 1:21 AM CDT 02/28/2025 1:33 AM CDT Rehana Shipley DO LAB BLOOD ORDERABLES F inal Result Performing Organization Address [facility] Co de Phone Number [facility] [address] [employer] [place], [place] [id number] * (ABNORMAL) Magnesium (02/28/2025 1:21 AM CDT) [facility] Magnesium 2.9(H) 1.4 - 2.5 mg/dL Blood 02/28/2025 1:21 AM CDT 02/28/2025 1:33 AM CDT Rehana Shipley DO LAB BLOOD ORDERABLES F inal Result Performing Organization Address [facility] Co de Phone Number [facility] [address] Department [employer] [place], [place] [id number] * (ABNORMAL) Comprehensive metabolic panel (02/28/2025 1:21 AM CDT) [facility] Sodium 144 135 - 145 mmol/L Potassium, pl 3.9 3.3 - 4.9 mmol/L [facility] Chloride 104 97 - 110 mmol/L [facility] CO2 22 22 - 32 mmol/L [facility] Anion gap 18(H) 2 - 15 mmol/L [facility] BUN 88(H) 6 - 25 mg/dL [facility] Creatinine 2.41(H) 0.80 - 1.30 mg/dL [facility] Glucose 128 70 - 199 mg/dL [facility] Comment: Interpretive Data Fasting glucose >/= 126 [...] 2022. Calcium 8.6 8.5 - 10.3 mg/dL [facility] Bilirubin, total 0.2 0.1 - 1.2 mg/dL [facility] Protein, pl 6.7 6.5 - 8.5 g/dL [facility] Albumin 2.9(L) 3.5 - 5.0 g/dL [facility] Alk phos 78 40 - 130 Units/L [facility] ALT 9 7 - 55 Units/L [facility] AST 41 10 - 50 Units/L [facility] Blood 02/28/2025 1:21 AM CDT 02/28/2025 1:33 AM CDT us Rehana Shipley DO LAB BLOOD ORDERABLES F inal Result [facility] [address] [place] [address] * POCT glucose (02/28/2025 12:21 AM CDT) [facility] Signature Glucose, POC 113 70 - 199 mg/dL Comment: For Glucose values <35 mg/dl when Hematocrit is >60 mg/dl,the test may not accurately detect significant hypoglycemia,and testing in the Laboratory should be considered if clinically indicated. POC Performer [id number] [facility] Blood 02/28/2025 12:2 1 AM CDT 02/28/2025 12:21 AM CDT Rehanamoise Shipley DO LAB POCT ORDERABLES - DEVICE Final Result Performing Organization Address [facility] Co de Phone Number [facility] [address] [facility] [employer] [place], [place] [phone] * POCT glucose (02/27/2025 8:07 PM CDT) Glucose, POC 122 70 - 199 mg/dL Comment: For Glucose values <35 mg/dl when Hematocrit is >60 mg/dl,the test may not accurately detect significant hypoglycemia,and testing in the Laboratory should be considered if clinically indicated. POC Performer [id number] [facility] Blood 02/27/2025 8:07 PM CDT 02/27/2025 8:07 PM CDT Rehana Mackeyjerzy LAB POCT ORDERABLES - DEVICE Final Result Performing Organization Address [facility] Co de Phone Number [facility] [address] [facility] [place] [address] * (ABNORMAL) aPTT (02/27/2025 6:23 PM CDT) aPTT 54(H) 28 - 38 sec Comment: Interpretive Data Heparin therapeutic range: 66.0 - 100.0 seconds. Range based on correlation with therapeutic heparin activity range of 0.3 - 0.7 Units/mL. Current interpretive data was last revised on 2023. Blood 02/27/2025 6:23 PM CDT 02/27/2025 6:32 PM CDT Rehanababak Shipley [employer] LAB BLOOD ORDERABLES F inal Result Performing Organization Address [facility] Co de Phone Number [facility] [address] [place] [address] * POCT glucose (02/27/2025 4:09 PM CDT) Glucose, POC 195 70 - 199 mg/dL Comment: For Glucose values <35 mg/dl when Hematocrit is >60 mg/dl,the test may not accurately detect significant hypoglycemia,and testing in the Laboratory should be considered if clinically indicated. POC Performer [id number] [facility] Blood 02/27/2025 4:09 PM CDT 02/27/2025 4:09 PM CDT Rehana Shipley DO LAB POCT ORDERABLES - DEVICE Final Result Performing Organization Address [facility]/ZIP Co de Phone Number [facility] [address] Department of Laboratories [place], [place] [id number] * NT-Pro BNP - Add on lab test (02/27/2025 2:33 PM CDT) [facility] Acceptable Yes Blood 02/27/2025 2:33 PM CDT 02/27/2025 2:33 PM CDT Narrative [facility] - 02/27/2025 2:33 PM CDT Name of Test->NT-Pro BNP Balbina Mac [employer] LAB BLOOD ORDERABLES Fi nal Result Performing Organization Address [facility] Co de Phone Number [facility] [address] [place] [address] * (ABNORMAL) POCT glucose (02/27/2025 12:08 PM CDT) Glucose, POC 264(H) 70 - 199 mg/dL Comment: For Glucose values <35 mg/dl when Hematocrit is >60 mg/dl,the test may not accurately detect significant hypoglycemia,and testing in the Laboratory should be considered if clinically indicated. POC Performer [phone] [facility] Blood 02/27/2025 12:0 8 PM CDT 02/27/2025 12:08 PM CDT Rehana Shipley DO LAB POCT ORDERABLES - DEVICE Final Result Performing Organization Address [facility] Co de Phone Number [facility] [address] [place] [address] * ECG 12 lead (02/27/2025 11:45 AM CDT) 02/27/2025 11:4 5 AM CDT N[address]ative [facility] - 02/27/2025 12:09 PM CDT Vent Rate: 89 bpm RR Interval: 671 msec GA Interval: 173 msec QRS Duration: 158 msec QT Interval: 452 msec QTC Interval: 499 msec P-R-T Purcell: 55 - 46 - 253 degrees IMPRESSION: SINUS RHYTHM INTRAVENTRICULAR CONDUCTION DELAY [130+ ms QRS DURATION] ABNORMAL ECG Electronically Signed By: Maryjo Canchola MD, [facility] Rehana Shipley DO ECG ORDERABLES Final Result Performing Organization Address [facility] Phone Number [facility] * aPTT (02/27/2025 9:33 AM CDT) aPTT 32 28 - 38 sec Comment: Interpretive Data Heparin therapeutic range: 66.0 - 100.0 seconds. Range based on correlation with therapeutic heparin activity range of 0.3 - 0.7 Units/mL. Current interpretive data was last revised on 2023. Blood 02/27/2025 9:33 AM CDT 02/27/2025 10:01 AM CDT Narrative [facility] - 02/27/2025 10:16 AM CDT Baseline prior to heparin initiation Rehana Shipley DO LAB BLOOD ORDERABLES F inal Result Performing Organization Address [facility] de Phone Number [facility] [address] [place] [address] * Protime-INR (02/27/2025 9:33 AM CDT) PT 12.2 9.7 - 13.0 sec INR 1.13 0.90 - 1.20 [facility] Comment: Interpretive data Oral anticoagulant therapeutic ranges: Venous thromboembolism prophylaxis or treatment: 2.0-3.0 CARDIOLOGY Standard range: 2.0-3.0 High-intensity range: 2.5-3.5 Refer to indication-specific guidelines for appropriate target ranges for prosthetic heart valve replacement. Current interpretive data was last revised on 2019. Blood 02/27/2025 9:33 AM CDT 02/27/2025 10:01 AM CDT Narrative [facility] - 02/27/2025 10:16 AM CDT Baseline prior to heparin initiation us Rehana Shipley DO LAB BLOOD ORDERABLES F inal Result [facility] [address] [place] [address] * (ABNORMAL) CBC without differential (02/27/2025 9:33 AM CDT) WBC 20.73(H) 3.80 - 9.90 K/cumm Hgb 13.0 13.0 - 17.5 g/dL [facility] Hct 42.4 38.9 - 50.3 % [facility] Plt 269 150 - 400 K/cumm [facility] MPV 13.3(H) 9.1 - 12.3 fL [facility] RBC 4.52 4.30 - 5.80 M/cumm [facility] MCV 93.8 81.3 - 96.4 fL [facility] MCH 28.8 27.1 - 33.3 pg [facility] MCHC 30.7(L) 32.3 - 35.7 g/dL [facility] RDW CV 15.5(H) 11.1 - 14.9 % [facility] RDW SD 54.0(H) 35.7 - 48.1 fL [facility] NRBC abs 0.00 0.00 - 0.01 K/cumm [facility] Blood 02/27/2025 9:33 AM CDT 02/27/2025 10:01 AM CDT Narrative [facility] - 02/27/2025 10:13 AM CDT Baseline prior to heparin initiation Rehana Mackeyjerzy DO LAB BLOOD ORDERABLES F inal Result Performing Organization Address [facility]/ZIP Co de Phone Number [facility] [address] [place] [address] * POCT glucose (02/27/2025 7:47 AM CDT) [facility] Signature Glucose, POC 190 70 - 199 mg/dL Comment: For Glucose values <35 mg/dl when Hematocrit is >60 mg/dl,the test may not accurately detect significant hypoglycemia,and testing in the Laboratory should be considered if clinically indicated. POC Performer [id number] [facility] Blood 02/27/2025 7:47 AM CDT 02/27/2025 7:47 AM CDT Rehana Kaylan Violetta LAB POCT ORDERABLES - DEVICE Final Result Performing Organization Address [facility] Co de Phone Number [facility] [address] [place] [address] * XR Chest 1 View (02/27/2025 5:09 [...] * POCT glucose (02/27/2025 4:20 AM CDT) [facility] Glucose, POC 181 70 - 199 mg/dL Comment: For Glucose values <35 mg/dl when Hematocrit is >60 mg/dl,the test may not accurately detect significant hypoglycemia,and testing in the Laboratory should be considered if clinically indicated. POC Performer [id number] [facility] Blood 02/27/2025 4:20 AM CDT 02/27/2025 4:20 AM CDT Maryjo Deshpande MD LAB POCT ORDERABLES - DEVICE Final Result [facility] [address] [place] [address] * (ABNORMAL) eGFR (02/27/2025 2:48 AM CDT) [facility] eGFR 27(L) >=60 mL/min/1. 73 m2 Comment: [...] LAB BLOOD ORDERABLES Final R esult [facility] [address] [place] [address] * (ABNORMAL) Pro B-type natriuretic [...] ORDERABLES F inal Result Performing Organization Address [facility] Co de Phone Number [facility] [address] [place] [address] * (ABNORMAL) Calcium, ionized (02/27/2025 2:48 AM CDT) Pathologist [facility] Calcium, Ionized 4.32(L) 4.50 - 5.10 mg/dL Blood 02/27/2025 2:48 AM CDT 02/27/2025 3:02 AM CDT Maryjo Deshpande MD LAB BLOOD ORDERABLES Final R esult Performing Organization Address [facility] Co de Phone Number [facility] [address] [place] [address] * (ABNORMAL) CBC without differential (02/27/2025 2:48 AM CDT) WBC 16.19(H) 3.80 - 9.90 K/cumm Hgb 12.9(L) 13.0 - 17.5 g/dL [facility] Hct 42.0 38.9 - 50.3 % [facility] Plt 226 150 - 400 K/cumm [facility] MPV 13.0(H) 9.1 - 12.3 fL [facility] RBC 4.48 4.30 - 5.80 M/cumm [facility] MCV 93.8 81.3 - 96.4 fL [facility] MCH 28.8 27.1 - 33.3 pg [facility] MCHC 30.7(L) 32.3 - 35.7 g/dL [facility] RDW CV 15.5(H) 11.1 - 14.9 % [facility] RDW SD 53.6(H) 35.7 - 48.1 fL [facility] NRBC abs 0.00 0.00 - 0.01 K/cumm [facility] Blood 02/27/2025 2:48 AM CDT 02/27/2025 3:04 AM CDT Maryjo Deshpande MD LAB BLOOD ORDERABLES Final R esult [facility] [address] [employer] [place] [address] * (ABNORMAL) Magnesium (02/27/2025 2:48 AM CDT) [facility] Magnesium 2.8(H) 1.4 - 2.5 mg/dL Blood 02/27/2025 2:48 AM CDT 02/27/2025 3:04 AM CDT Maryjo Deshpande MD LAB BLOOD ORDERABLES Final R esult Performing Organization Address City/[facility]/ZIP Co de Phone Number [facility] [address] [employer] [place], [place] [phone] * (ABNORMAL) Renal function panel (02/27/2025 2:48 AM CDT) Sodium 142 135 - 145 mmol/L Potassium, pl 3.8 3.3 - 4.9 mmol/L [facility] Chloride 100 97 - 110 mmol/L [facility] CO2 21(L) 22 - 32 mmol/L [facility] Anion gap 21(H) 2 - 15 mmol/L [facility] BUN 77(H) 6 - 25 mg/dL [facility] Creatinine 2.45(H) 0.80 - 1.30 mg/dL [facility] Glucose 210(H) 70 - 199 mg/dL [facility] Comment: Interpretive Data Fasting glucose >/= 126 [...] 2022. Calcium 8.3(L) 8.5 - 10.3 mg/dL [facility] Phosphorus, pl 4.6(H) 2.3 - 4.5 mg/dL [facility] Albumin 2.8(L) 3.5 - 5.0 g/dL [facility] Blood 02/27/2025 2:48 AM CDT 02/27/2025 3:04 AM CDT us Maryjo Deshpande MD LAB BLOOD ORDERABLES Final R esult Performing Organization Address City/[facility]/ZIP Co de Phone Number [facility] [address] [employer] [place] [address] * (ABNORMAL) POCT glucose (02/27/2025 12:46 AM CDT) [facility] Signature Glucose, POC 202(H) 70 - 199 mg/dL Comment: For Glucose values <35 mg/dl when Hematocrit is >60 mg/dl,the test may not accurately detect significant hypoglycemia,and testing in the Laboratory should be considered if clinically indicated. POC Performer [id number] [facility] Blood 02/27/2025 12:4 6 AM CDT 02/27/2025 12:46 AM CDT Maryjo Deshpande MD LAB POCT ORDERABLES - DEVICE Final Result Performing Organization Address City/[facility]/ZIP Co de Phone Number [facility] [address] [employer] [place], [place] [phone] * POCT glucose (02/26/2025 8:38 PM CDT) Glucose, POC 192 70 - 199 mg/dL Comment: For Glucose values <35 mg/dl when Hematocrit is >60 mg/dl,the test may not accurately detect significant hypoglycemia,and testing in the Laboratory should be considered if clinically indicated. POC Performer [id number] [facility] Blood 02/26/2025 8:38 PM CDT 02/26/2025 8:38 PM CDT aMryjo Deshpande MD LAB POCT ORDERABLES - DEVICE Final Result Performing Organization Address [facility] Co de Phone Number [facility] [address] [employer] [place] [address] * POCT glucose (02/26/2025 3:58 PM CDT) Glucose, POC 143 70 - 199 mg/dL Comment: For Glucose values <35 mg/dl when Hematocrit is >60 mg/dl,the test may not accurately detect significant hypoglycemia,and testing in the Laboratory should be considered if clinically indicated. POC Performer [id number] [facility] Blood 02/26/2025 3:58 PM CDT 02/26/2025 3:58 PM CDT Maryjo Deshpande MD LAB POCT ORDERABLES - DEVICE Final Result Performing Organization Address City/[facility] Co de Phone Number [facility] [address] [place] [address] * (ABNORMAL) POCT glucose (02/26/2025 11:53 AM CDT) Glucose, POC 216(H) 70 - 199 mg/dL Comment: For Glucose values <35 mg/dl when Hematocrit is >60 mg/dl,the test may not accurately detect significant hypoglycemia,and testing in the Laboratory should be considered if clinically indicated. POC Performer [id number] [facility] Blood 02/26/2025 11:5 3 AM CDT 02/26/2025 11:53 AM CDT Maryjo Deshpande MD LAB POCT ORDERABLES - DEVICE Final Result Performing Organization Address [facility] Co de Phone Number [facility] [address] [facility] [place] [address] * (ABNORMAL) POCT glucose (02/26/2025 9:04 AM CDT) Glucose, POC 214(H) 70 - 199 mg/dL Comment: For Glucose values <35 mg/dl when Hematocrit is >60 mg/dl,the test may not accurately detect significant hypoglycemia,and testing in the Laboratory should be considered if clinically indicated. POC Performer [id number] [facility] Blood 02/26/2025 9:04 AM CDT 02/26/2025 9:04 AM CDT us Maryjo Deshpande MD LAB POCT ORDERABLES - DEVICE Final Result Performing Organization Address [facility] de Phone Number [facility] [address] [facility] [place] [address] * (ABNORMAL) POCT glucose (02/26/2025 5:11 AM CDT) Glucose, POC 216(H) 70 - 199 mg/dL Comment: For Glucose values <35 mg/dl when Hematocrit is >60 mg/dl,the test may not accurately detect significant hypoglycemia,and testing in the Laboratory should be considered if clinically indicated. POC Performer [id number] [facility] Blood 02/26/2025 5:11 AM CDT 02/26/2025 5:11 AM CDT Maryjo Deshpande MD LAB POCT ORDERABLES - DEVICE Final Result Performing Organization Address [facility] Co de Phone Number [facility] [address] [facility] [place] [address] * XR Chest 1 View (02/26/2025 3:38 AM CDT) Anatomical Region Laterality Modality Body, Chest N/A Computed Radiogr aphy 02/26/2025 8:03 AM CDT Impressions 02/26/2025 8:03 AM CDT [place] and 02/25/2025 3:59 AM. Median sternotomy wires [...] - 02/26/2025 EXAMINATION: Chest 1 view IMPRESSION: [place] and 02/25/2025 3:59 AM. Median sternotomy wires [...] MD LAB BLOOD ORDERABLES Final R esult [facility] [address] [place] [address] * (ABNORMAL) CBC without differential (02/26/2025 3:04 AM CDT) WBC 16.74(H) 3.80 - 9.90 K/cumm Hgb 13.0 13.0 - 17.5 g/dL [facility] Hct 42.3 38.9 - 50.3 % [facility] Plt 211 150 - 400 K/cumm [facility] MPV 12.7(H) 9.1 - 12.3 fL [facility] RBC 4.53 4.30 - 5.80 M/cumm [facility] MCV 93.4 81.3 - 96.4 fL [facility] MCH 28.7 27.1 - 33.3 pg [facility] MCHC 30.7(L) 32.3 - 35.7 g/dL [facility] RDW CV 15.4(H) 11.1 - 14.9 % [facility] RDW SD 53.1(H) 35.7 - 48.1 fL [facility] NRBC abs 0.00 0.00 - 0.01 K/cumm [facility] Blood 02/26/2025 3:04 AM CDT 02/26/2025 3:24 AM CDT Maryjo Deshpande MD LAB BLOOD ORDERABLES Final R esult Performing Organization Address City/[facility]/ZIP Co de Phone Number [facility] [address] [place] [address] * (ABNORMAL) Magnesium (02/26/2025 3:04 AM CDT) Magnesium 2.7(H) 1.4 - 2.5 mg/dL Comment:Reviewed Blood 02/26/2025 3:04 AM CDT 02/26/2025 3:24 AM CDT Maryjo Deshpande MD LAB BLOOD ORDERABLES Final R esult Performing Organization Address [facility] Co de Phone Number [facility] [address] [place] [address] * (ABNORMAL) Renal function panel (02/26/2025 3:04 AM CDT) Pathologist [facility] Sodium 142 135 - 145 mmol/L Potassium, pl 4.0 3.3 - 4.9 mmol/L [facility] Chloride 103 97 - 110 mmol/L [facility] CO2 23 22 - 32 mmol/L [facility] Anion gap 16(H) 2 - 15 mmol/L [facility] BUN 61(H) 6 - 25 mg/dL [facility] Creatinine 2.06(H) 0.80 - 1.30 mg/dL [facility] Glucose 233(H) 70 - 199 mg/dL [facility] Comment: Interpretive Data Fasting glucose >/= 126 [...] classification and Diagnosis of Diabetes Diabetes Care 2022; 46: S19-S40. Current interpretive data was last revised 2022. Calcium 8.4(L) 8.5 - 10.3 mg/dL [facility] Phosphorus, pl 3.8 2.3 - 4.5 mg/dL [facility] Albumin 2.9(L) 3.5 - 5.0 g/dL [facility] Blood 02/26/2025 3:04 AM CDT 02/26/2025 3:24 AM CDT Maryjo Deshpande MD LAB BLOOD ORDERABLES Final R esult Performing Organization Address City/[facility]/ZIP Co de Phone Number [facility] [address] [employer] [place] [address] * (ABNORMAL) POCT glucose (02/26/2025 1:30 AM CDT) Glucose, POC 257(H) 70 - 199 mg/dL Comment: For Glucose values <35 mg/dl when Hematocrit is >60 mg/dl,the test may not accurately detect significant hypoglycemia,and testing in the Laboratory should be considered if clinically indicated. POC Performer [id number] [facility] Blood 02/26/2025 1:30 AM CDT 02/26/2025 1:30 AM CDT Maryjo Deshpande MD LAB POCT ORDERABLES - DEVICE Final Result Performing Organization Address [facility]/ZIP Co de Phone Number [facility] [address] [employer] [place], [place] [phone] * (ABNORMAL) POCT glucose (02/25/2025 9:39 PM CDT) Glucose, POC 226(H) 70 - 199 mg/dL Comment: For Glucose values <35 mg/dl when Hematocrit is >60 mg/dl,the test may not accurately detect significant hypoglycemia,and testing in the Laboratory should be considered if clinically indicated. POC Performer [id number] [facility] Blood 02/25/2025 9:39 PM CDT 02/25/2025 9:39 PM CDT Maryjo Deshpande MD LAB POCT ORDERABLES - DEVICE Final Result Performing Organization Address [facility] de Phone Number [facility] [address] [employer] [place], [place] [id number] * Potassium (02/25/2025 4:02 PM CDT) [facility] Potassium, pl 4.0 3.3 - 4.9 mmol/L Comment:Hemolyzed; potassium value may be falsely elevated by as much as 0.6 - 1.0 mmol/L. Suggest redraw and reanalysis Blood 02/25/2025 4:02 PM CDT 02/25/2025 4:12 PM CDT Maryjo Deshpande MD LAB BLOOD ORDERABLES Final R esult Performing Organization Address [facility] Co de Phone Number [facility] [address] [employer] [place], [place] [id number] * Magnesium (02/25/2025 4:02 PM CDT) [facility] Magnesium 2.1 1.4 - 2.5 mg/dL Blood 02/25/2025 4:02 PM CDT 02/25/2025 4:12 PM CDT Maryjo Deshpande MD LAB BLOOD ORDERABLES Final R esult Performing Organization Address [facility] de Phone Number [facility] [address] [employer] [place], [place] [id number] * (ABNORMAL) POCT glucose (02/25/2025 3:50 PM CDT) [facility] Glucose, POC 226(H) 70 - 199 mg/dL Comment: For Glucose values <35 mg/dl when Hematocrit is >60 mg/dl,the test may not accurately detect significant hypoglycemia,and testing in the Laboratory should be considered if clinically indicated. POC Performer [id number] [facility] Blood 02/25/2025 3:50 PM CDT 02/25/2025 3:50 PM CDT Maryjo Deshpande MD LAB POCT ORDERABLES - DEVICE Final Result Performing Organization Address [facility] Co de Phone Number [facility] [address] Department of Laboratories [place], [place] [phone] * (ABNORMAL) POCT glucose (02/25/2025 11:32 AM CDT) [facility] Glucose, POC 221(H) 70 - 199 mg/dL Comment: For Glucose values <35 mg/dl when Hematocrit is >60 mg/dl,the test may not accurately detect significant hypoglycemia,and testing in the Laboratory should be considered if clinically indicated. POC Performer [id number] [facility] Blood 02/25/2025 11:3 2 AM CDT 02/25/2025 11:32 AM CDT Maryjo Deshpande MD LAB POCT ORDERABLES - DEVICE Final Result Performing Organization Address [facility] Co de Phone Number [facility] [address] [place] [address] * TRANSTHORACIC ECHO (TTE) LIMITED/FOLLOW UP W LTD DOPPLER/CF W CONTRAST (02/25/2025 10:45 AM CDT) [facility] Estimated EF 15-20 % CONS SCIMAGE Anatomical Region Laterality Modality Ultrasound 02/25/2025 8:41 AM CDT Narrative 02/25/2025 4:25 PM CDT [facility] [address] [address] LIMITED ECHOCARDIOGRAM Patient Name: MAURICIO HEADLEY : 1955 (70y ) Gender: M Study Date: 02/25/2025 08:41:23 AM Ht(Inch): 67 Wt(Lb): 171.96 BSA: 1.92 Java Web Developer: [email or web address] Location: [id number] Order Provider: MARYJO DESHPANDE BMI: 26.93 BP: [...] size. Electronically Signed By: Jb Henning MD [facility] 02/25/2025 4:24:30 PM CDT Procedure Note Jb Henning MD - 02/25/2025 [place] [address] [place] [address] LIMITED ECHOCARDIOGRAM Patient Name: MAURICIO HEADLEY : 1955 (70y ) Gender: M Study Date: 02/25/2025 08:41:23 AM Ht(Inch): 67 Wt(Lb): 171.96 BSA: 1.92 Java Web Developer: [email or web address] Location: [id number] Order Provider: MARYJO DESHPANDE BMI: 26.93 BP: [...] size. Electronically Signed By: Jb Henning MD [facility] 02/25/2025 4:24:30 PM CDT us Maryjo Deshpande MD CV ECHO PROCEDURES Final Res ult * (ABNORMAL) POCT glucose (02/25/2025 7:35 AM CDT) Glucose, POC 245(H) 70 - 199 mg/dL Comment: For Glucose values <35 mg/dl when Hematocrit is >60 mg/dl,the test may not accurately detect significant hypoglycemia,and testing in the Laboratory should be considered if clinically indicated. POC Performer [id number] [facility] Blood 02/25/2025 7:35 AM CDT 02/25/2025 7:35 AM CDT Maryjo Deshpande MD LAB POCT ORDERABLES - DEVICE Final Result Performing Organization Address [facility] de Phone Number [facility] [address] [place], [place] [id number] * POCT glucose (02/25/2025 4:21 AM CDT) Glucose, POC 192 70 - 199 mg/dL Comment: For Glucose values <35 mg/dl when Hematocrit is >60 mg/dl,the test may not accurately detect significant hypoglycemia,and testing in the Laboratory should be considered if clinically indicated. POC Performer [id number] [facility] Blood 02/25/2025 4:21 AM CDT 02/25/2025 4:21 AM CDT Maryjo Deshpande MD LAB POCT ORDERABLES - DEVICE Final Result Performing Organization Address [facility] Co de Phone Number [facility] [address] [place] [address] * XR Chest 1 View (02/25/2025 4:17 AM CDT) Anatomical Region Laterality Modality Body, Chest N/A Computed Radiogr aphy 02/25/2025 8:47 AM CDT Impressions 02/25/2025 8:47 AM CDT Comparison is made to 02/24/2025. The endotracheal tube tip is located 2.7 cm above the marisela. Nasogastric tube tip located with diaphragm, not included [id number]. Mediastinal wires unchanged in position. There is [...] tube tip located with diaphragm, not included [id number]. Mediastinal wires unchanged in position. There is [...] ORDERABLES Final R esult Performing Organization Address City/[facility] Co de Phone Number [facility] [address] [employer] [place] [address] * (ABNORMAL) CBC without differential (02/25/2025 3:40 AM CDT) WBC 15.79(H) 3.80 - 9.90 K/cumm Hgb 11.4(L) 13.0 - 17.5 g/dL [facility] Hct 36.7(L) 38.9 - 50.3 % [facility] Plt 189 150 - 400 K/cumm [facility] MPV 12.4(H) 9.1 - 12.3 fL [facility] RBC 3.95(L) 4.30 - 5.80 M/cumm [facility] MCV 92.9 81.3 - 96.4 fL [facility] MCH 28.9 27.1 - 33.3 pg [facility] MCHC 31.1(L) 32.3 - 35.7 g/dL [facility] RDW CV 15.3(H) 11.1 - 14.9 % [facility] RDW SD 53.0(H) 35.7 - 48.1 fL [facility] NRBC abs 0.00 0.00 - 0.01 K/cumm [facility] Blood 02/25/2025 3:40 AM CDT 02/25/2025 3:44 AM CDT Maryjo Deshpande MD LAB BLOOD ORDERABLES Final R esult Performing Organization Address City/[facility]/ZIP Co de Phone Number [facility] [address] [facility] [place] [address] * Magnesium (02/25/2025 3:40 AM CDT) Magnesium 2.5 1.4 - 2.5 mg/dL Blood 02/25/2025 3:40 AM CDT 02/25/2025 3:44 AM CDT Maryjo Deshpande MD LAB BLOOD ORDERABLES Final R esult [facility] [address] [place] [address] * (ABNORMAL) Renal function panel (02/25/2025 3:40 AM CDT) Pathologist [facility] Sodium 136 135 - 145 mmol/L Potassium, pl 3.1(L) 3.3 - 4.9 mmol/L [facility] Chloride 98 97 - 110 mmol/L [facility] CO2 21(L) 22 - 32 mmol/L [facility] Anion gap 17(H) 2 - 15 mmol/L [facility] BUN 54(H) 6 - 25 mg/dL [facility] Creatinine 1.75(H) 0.80 - 1.30 mg/dL [facility] Glucose 249(H) 70 - 199 mg/dL [facility] Comment: Interpretive Data Fasting glucose >/= 126 [...] 2022. Calcium 7.6(L) 8.5 - 10.3 mg/dL [facility] Phosphorus, pl 3.4 2.3 - 4.5 mg/dL [facility] Albumin 2.5(L) 3.5 - 5.0 g/dL [facility] Blood 02/25/2025 3:40 AM CDT 02/25/2025 3:44 AM CDT Maryjo Deshpande MD LAB BLOOD ORDERABLES Final R esult Performing Organization Address [facility] Co de Phone Number [facility] [address] [place] [address] * (ABNORMAL) POCT glucose (02/25/2025 12:17 AM CDT) Glucose, POC 208(H) 70 - 199 mg/dL Comment: For Glucose values <35 mg/dl when Hematocrit is >60 mg/dl,the test may not accurately detect significant hypoglycemia,and testing in the Laboratory should be considered if clinically indicated. POC Performer [id number] [facility] Blood 02/25/2025 12:1 7 AM CDT 02/25/2025 12:17 AM CDT Maryjo Deshpande MD LAB POCT ORDERABLES - DEVICE Final Result Performing Organization Address [facility] de Phone Number [facility] [address] [facility] [place] [address] * (ABNORMAL) POCT glucose (02/24/2025 7:49 PM CDT) Glucose, POC 244(H) 70 - 199 mg/dL Comment: For Glucose values <35 mg/dl when Hematocrit is >60 mg/dl,the test may not accurately detect significant hypoglycemia,and testing in the Laboratory should be considered if clinically indicated. POC Performer [id number] [facility] Blood 02/24/2025 7:49 PM CDT 02/24/2025 7:49 PM CDT Maryjo Deshpande MD LAB POCT ORDERABLES - DEVICE Final Result Performing Organization Address [facility] Co de Phone Number [facility] [address] [employer] [place], [place] [id number] * (ABNORMAL) POCT glucose (02/24/2025 3:21 PM CDT) Glucose, POC 227(H) 70 - 199 mg/dL Comment: For Glucose values <35 mg/dl when Hematocrit is >60 mg/dl,the test may not accurately detect significant hypoglycemia,and testing in the Laboratory should be considered if clinically indicated. POC Performer [id number] [facility] Blood 02/24/2025 3:21 PM CDT 02/24/2025 3:21 PM CDT us Maryjo Deshpande MD LAB POCT ORDERABLES - DEVICE Final Result Performing Organization Address [facility]/ZIP Co de Phone Number [facility] [address] [employer] [place] [address] * Potassium (02/24/2025 1:17 PM CDT) [facility] Potassium, pl 3.7 3.3 - 4.9 mmol/L Comment:Hemolyzed; potassium value may be falsely elevated by as much as 0.3 - 0.5 mmol/L. Suggest redraw and reanalysis Blood 02/24/2025 1:17 PM CDT 02/24/2025 1:31 PM CDT Narrative [facility] - 02/24/2025 1:50 PM CDT Draw 4 hours after second potassium chloride dose completed. us Teodoro Nassar MD LAB BLOOD ORDERABLES Final R esult Performing Organization Address City/[facility]/ZIP Co de Phone Number [facility] [address] [employer] [place] [address] * POCT glucose (02/24/2025 11:35 AM CDT) Glucose, POC 196 70 - 199 mg/dL Comment: For Glucose values <35 mg/dl when Hematocrit is >60 mg/dl,the test may not accurately detect significant hypoglycemia,and testing in the Laboratory should be considered if clinically indicated. POC Performer [id number] [facility] Blood 02/24/2025 11:3 5 AM CDT 02/24/2025 11:35 AM CDT Maryjo Deshpande MD LAB POCT ORDERABLES - DEVICE Final Result Performing Organization Address [facility] Co de Phone Number [facility] [address] [facility] [place] [address] * (ABNORMAL) POCT glucose (02/24/2025 7:19 AM CDT) Glucose, POC 233(H) 70 - 199 mg/dL Comment: For Glucose values <35 mg/dl when Hematocrit is >60 mg/dl,the test may not accurately detect significant hypoglycemia,and testing in the Laboratory should be considered if clinically indicated. POC Performer [id number] [facility] Blood 02/24/2025 7:19 AM CDT 02/24/2025 7:19 AM CDT Maryjo Deshpande MD LAB POCT ORDERABLES - DEVICE Final Result Performing Organization Address [facility] de Phone Number [facility] [address] [facility] [place] [address] * (ABNORMAL) POCT glucose (02/24/2025 4:23 AM CDT) Glucose, POC 250(H) 70 - 199 mg/dL Comment: For Glucose values <35 mg/dl when Hematocrit is >60 mg/dl,the test may not accurately detect significant hypoglycemia,and testing in the Laboratory should be considered if clinically indicated. POC Performer [id number] [facility] Blood 02/24/2025 4:23 AM CDT 02/24/2025 4:23 AM CDT Maryjo Deshpande MD LAB POCT ORDERABLES - DEVICE Final Result Performing Organization Address [facility] de Phone Number [facility] [address] [place] [address] * XR Chest 1 View (02/24/2025 3:59 [...] MD LAB BLOOD ORDERABLES Final R esult [facility] [address] Department of Laboratories [place], [place] [id number] * (ABNORMAL) CBC without differential (02/24/2025 3:27 AM CDT) WBC 14.37(H) 3.80 - 9.90 K/cumm Hgb 12.7(L) 13.0 - 17.5 g/dL [facility] Hct 42.1 38.9 - 50.3 % [facility] Plt 189 150 - 400 K/cumm [facility] MPV 11.8 9.1 - 12.3 fL [facility] RBC 4.37 4.30 - 5.80 M/cumm [facility] MCV 96.3 81.3 - 96.4 fL [facility] MCH 29.1 27.1 - 33.3 pg [facility] MCHC 30.2(L) 32.3 - 35.7 g/dL [facility] RDW CV 15.5(H) 11.1 - 14.9 % [facility] RDW SD 55.8(H) 35.7 - 48.1 fL [facility] NRBC abs 0.00 0.00 - 0.01 K/cumm [facility] Blood 02/24/2025 3:27 AM CDT 02/24/2025 3:38 AM CDT Maryjo Deshpande MD LAB BLOOD ORDERABLES Final R esult Performing Organization Address City/[facility]/ZIP Co de Phone Number [facility] [address] [place] [address] * (ABNORMAL) Magnesium (02/24/2025 3:27 AM CDT) Pathologist [facility] Magnesium 2.6(H) 1.4 - 2.5 mg/dL Blood 02/24/2025 3:27 AM CDT 02/24/2025 3:39 AM CDT Maryjo Deshpande MD LAB BLOOD ORDERABLES Final R esult Performing Organization Address [facility] Co de Phone Number [facility] [address] [place] [address] * (ABNORMAL) Renal function panel (02/24/2025 3:27 AM CDT) Pathologist [facility] Sodium 145 135 - 145 mmol/L Potassium, pl 3.0(L) 3.3 - 4.9 mmol/L [facility] Chloride 103 97 - 110 mmol/L [facility] CO2 23 22 - 32 mmol/L [facility] Anion gap 19(H) 2 - 15 mmol/L [facility] BUN 60(H) 6 - 25 mg/dL [facility] Creatinine 1.90(H) 0.80 - 1.30 mg/dL [facility] Glucose 229(H) 70 - 199 mg/dL [facility] Comment: Interpretive Data Fasting glucose >/= 126 [...] 2022. Calcium 8.4(L) 8.5 - 10.3 mg/dL [facility] Phosphorus, pl 3.9 2.3 - 4.5 mg/dL [facility] Albumin 2.8(L) 3.5 - 5.0 g/dL [facility] Blood 02/24/2025 3:27 AM CDT 02/24/2025 3:39 AM CDT Maryjo Deshpande MD LAB BLOOD ORDERABLES Final R esult Performing Organization Address [facility]/ZIP Co de Phone Number [facility] [address] [employer] [place], [place] [phone] * (ABNORMAL) POCT glucose (02/24/2025 12:01 AM CDT) Glucose, POC 258(H) 70 - 199 mg/dL Comment: For Glucose values <35 mg/dl when Hematocrit is >60 mg/dl,the test may not accurately detect significant hypoglycemia,and testing in the Laboratory should be considered if clinically indicated. POC Performer [phone] [facility] Blood 02/24/2025 12:0 1 AM CDT 02/24/2025 12:01 AM CDT us Maryjo Deshpande MD LAB POCT ORDERABLES - DEVICE Final Result Performing Organization Address [facility]/ZIP Co de Phone Number [facility] [address] [place] [address] * (ABNORMAL) POCT glucose (02/23/2025 8:43 PM CDT) Glucose, POC 244(H) 70 - 199 mg/dL Comment: For Glucose values <35 mg/dl when Hematocrit is >60 mg/dl,the test may not accurately detect significant hypoglycemia,and testing in the Laboratory should be considered if clinically indicated. POC Performer [id number] [facility] Blood 02/23/2025 8:43 PM CDT 02/23/2025 8:43 PM CDT Maryjo Deshpande MD LAB POCT ORDERABLES - DEVICE Final Result Performing Organization Address City/[facility]/ZIP Co de Phone Number [facility] [address] [facility] [place] [address] * (ABNORMAL) POCT glucose (02/23/2025 4:22 PM CDT) Glucose, POC 225(H) 70 - 199 mg/dL Comment: For Glucose values <35 mg/dl when Hematocrit is >60 mg/dl,the test may not accurately detect significant hypoglycemia,and testing in the Laboratory should be considered if clinically indicated. POC Performer [id number] [facility] Blood 02/23/2025 4:22 PM CDT 02/23/2025 4:22 PM CDT us Maryjo Deshpande MD LAB POCT ORDERABLES - DEVICE Final Result Performing Organization Address [facility] Co de Phone Number [facility] [address] [facility] [employer] [place], [place] [id number] * POCT glucose (02/23/2025 12:28 PM CDT) Glucose, POC 195 70 - 199 mg/dL Comment: For Glucose values <35 mg/dl when Hematocrit is >60 mg/dl,the test may not accurately detect significant hypoglycemia,and testing in the Laboratory should be considered if clinically indicated. POC Performer [id number] [facility] Blood 02/23/2025 12:2 8 PM CDT 02/23/2025 12:28 PM CDT Maryjo Deshpande MD LAB POCT ORDERABLES - DEVICE Final Result Performing Organization Address City/[facility]/ZIP Co de Phone Number [facility] [address] [employer] [place], [place] [id number] * POCT glucose (02/23/2025 8:16 AM CDT) Glucose, POC 166 70 - 199 mg/dL Comment: For Glucose values <35 mg/dl when Hematocrit is >60 mg/dl,the test may not accurately detect significant hypoglycemia,and testing in the Laboratory should be considered if clinically indicated. POC Performer [id number] [facility] Blood 02/23/2025 8:16 AM CDT 02/23/2025 8:16 AM CDT us Evgeny Villalba MD LAB POCT ORDERABLES - DEV ICE Final Result [facility] [address] [place] [address] * (ABNORMAL) eGFR (02/23/2025 4:10 AM CDT) eGFR 43(L) >=60 mL/min/1. 73 m2 Comment: [...] ORDERABLES Madhavi l Result Performing Organization Address [facility] Co de Phone Number [facility] [address] [place] [address] * (ABNORMAL) Pro B-type natriuretic peptide (02/23/2025 [...] ORDERABLES Madhavi l Result Performing Organization Address [facility]/ZIP Co de Phone Number [facility] [address] [place] [address] * Magnesium (02/23/2025 4:10 AM CDT) Pathologist [facility] Magnesium 2.5 1.4 - 2.5 mg/dL Blood 02/23/2025 4:10 AM CDT 02/23/2025 4:19 AM CDT Evgeny Villalba MD LAB BLOOD ORDERABLES Madhavi l Result [facility] [address] [place] [address] * (ABNORMAL) Basic metabolic panel (02/23/2025 4:10 AM CDT) Pathologist [facility] Sodium 151(H) 135 - 145 mmol/L Potassium, pl 3.8 3.3 - 4.9 mmol/L [facility] Chloride 109 97 - 110 mmol/L [facility] CO2 24 22 - 32 mmol/L [facility] Anion gap 18(H) 2 - 15 mmol/L [facility] BUN 56(H) 6 - 25 mg/dL [facility] Creatinine 1.68(H) 0.80 - 1.30 mg/dL [facility] Glucose 159 70 - 199 mg/dL [facility] Comment: Interpretive Data Fasting glucose >/= 126 [...] 2022. Calcium 8.6 8.5 - 10.3 mg/dL [facility] Blood 02/23/2025 4:10 AM CDT 02/23/2025 4:19 AM CDT Evgeny Villalba MD LAB BLOOD ORDERABLES Madhavi l Result Performing Organization Address [facility] Co de Phone Number [facility] [address] [place] [address] * POCT glucose (02/23/2025 3:59 AM CDT) Glucose, POC 138 70 - 199 mg/dL Comment: For Glucose values <35 mg/dl when Hematocrit is >60 mg/dl,the test may not accurately detect significant hypoglycemia,and testing in the Laboratory should be considered if clinically indicated. POC Performer [id number] [facility] Blood 02/23/2025 3:59 AM CDT 02/23/2025 3:59 AM CDT Evgeny Villalba MD LAB POCT ORDERABLES - DEV ICE Final Result Performing Organization Address [facility] de Phone Number [facility] [address] [place] [address] * POCT glucose (02/22/2025 11:31 PM CDT) Glucose, POC 127 70 - 199 mg/dL Comment: For Glucose values <35 mg/dl when Hematocrit is >60 mg/dl,the test may not accurately detect significant hypoglycemia,and testing in the Laboratory should be considered if clinically indicated. POC Performer [id number] [facility] Blood 02/22/2025 11:3 1 PM CDT 02/22/2025 11:31 PM CDT Evgeny Villalba MD LAB POCT ORDERABLES - DEV ICE Final Result Performing Organization Address [facility] Co de Phone Number [facility] [address] [place] [address] * (ABNORMAL) eGFR (02/22/2025 10:45 PM CDT) Pathologist [facility] eGFR 49(L) >=60 mL/min/1. 73 m2 Comment: [...] ORDERABLES Final R esult Performing Organization Address City/[facility]/ZIP Co de Phone Number [facility] [address] [employer] [place], [place] [id number] * Magnesium (02/22/2025 10:45 PM CDT) [facility] Magnesium 2.5 1.4 - 2.5 mg/dL Blood 02/22/2025 10:4 5 PM CDT 02/22/2025 11:07 PM CDT Teodoro Nassar MD LAB BLOOD ORDERABLES Final R esult Performing Organization Address City/[facility]/ZIP Co de Phone Number [facility] [address] [place] [address] * (ABNORMAL) Basic metabolic panel (02/22/2025 10:45 PM CDT) Sodium 153(H) 135 - 145 mmol/L Potassium, pl 3.5 3.3 - 4.9 mmol/L [facility] Chloride 109 97 - 110 mmol/L [facility] CO2 25 22 - 32 mmol/L [facility] Anion gap 19(H) 2 - 15 mmol/L [facility] BUN 53(H) 6 - 25 mg/dL [facility] Creatinine 1.51(H) 0.80 - 1.30 mg/dL [facility] Glucose 138 70 - 199 mg/dL [facility] Comment: Interpretive Data Fasting glucose >/= 126 [...] 2022. Calcium 8.6 8.5 - 10.3 mg/dL [facility] Blood 02/22/2025 10:4 5 PM CDT 02/22/2025 11:07 PM CDT us Teodoro Nassar MD LAB BLOOD ORDERABLES Final R esult [facility] [address] [place] [address] * (ABNORMAL) POCT glucose (02/22/2025 8:04 PM CDT) [facility] Glucose, POC 201(H) 70 - 199 mg/dL Comment: For Glucose values <35 mg/dl when Hematocrit is >60 mg/dl,the test may not accurately detect significant hypoglycemia,and testing in the Laboratory should be considered if clinically indicated. POC Performer [id number] [facility] Blood 02/22/2025 8:04 PM CDT 02/22/2025 8:04 PM CDT Evgeny Villalba MD LAB POCT ORDERABLES - DEV ICE Final Result Performing Organization Address [facility]/ZIP Co de Phone Number [facility] [address] [place] [address] * (ABNORMAL) POCT glucose (02/22/2025 5:07 PM CDT) [facility] Signature Glucose, POC 288(H) 70 - 199 mg/dL Comment: For Glucose values <35 mg/dl when Hematocrit is >60 mg/dl,the test may not accurately detect significant hypoglycemia,and testing in the Laboratory should be considered if clinically indicated. POC Performer [id number] [facility] Blood 02/22/2025 5:07 PM CDT 02/22/2025 5:07 PM CDT Evgeny Villalba MD LAB POCT ORDERABLES - DEV ICE Final Result Performing Organization Address [facility] Co de Phone Number [facility] [address] [place] [address] * XR Kub (02/22/2025 4:30 PM CDT) [...] PCO2, Arterial 59(H) 35 - 45 mmHg [facility] PO2, Arterial 304(H) 83 - 108 mmHg [facility] HCO3 Art (Calculated) 28 20 - 30 mmol/L [facility] BE, art 0 mmol/L [facility] Comment: Interpretive Data No Reference Range Established Current Interpretive Data was last revised on 2017 O2 Sat Art (Calculated) 100(H) 94 - 98 % [facility] Blood 02/22/2025 3:34 PM CDT 02/22/2025 3:36 PM CDT us Evgeny Villalba MD LAB BLOOD ORDERABLES Madhavi l Result [facility] [address] [place] [address] * XR Chest 1 View (02/22/2025 3:12 [...] be considered if clinically indicated. POC Performer [id number] [facility] Blood 02/22/2025 11:5 6 AM CDT 02/22/2025 11:56 AM CDT Evgeny Villalba MD LAB POCT ORDERABLES - DEV ICE Final Result Performing Organization Address [facility] Co de Phone Number [facility] [address] [facility] [place] [address] * (ABNORMAL) POCT glucose (02/22/2025 7:14 AM CDT) Glucose, POC 232(H) 70 - 199 mg/dL Comment: For Glucose values <35 mg/dl when Hematocrit is >60 mg/dl,the test may not accurately detect significant hypoglycemia,and testing in the Laboratory should be considered if clinically indicated. POC Performer [id number] [facility] Blood 02/22/2025 7:14 AM CDT 02/22/2025 7:14 AM CDT Evgeny Villalba MD LAB POCT ORDERABLES - DEV ICE Final Result Performing Organization Address City/[facility]/ZIP Co de Phone Number [facility] [address] [facility] [place] [address] * (ABNORMAL) POCT glucose (02/22/2025 3:59 AM CDT) Glucose, POC 260(H) 70 - 199 mg/dL Comment: For Glucose values <35 mg/dl when Hematocrit is >60 mg/dl,the test may not accurately detect significant hypoglycemia,and testing in the Laboratory should be considered if clinically indicated. POC Performer [id number] [facility] Blood 02/22/2025 3:59 AM CDT 02/22/2025 3:59 AM CDT Evgeny Villalba MD LAB POCT ORDERABLES - DEV ICE Final Result [facility] [address] [place] [address] * XR Chest 1 View (02/22/2025 3:33 [...] esult * eGFR (02/22/2025 2:13 AM CDT) eGFR 64 >=60 mL/min/1. 73 m2 Comment: [...] ORDERABLES Madhavi l Result Performing Organization Address [facility] Co de Phone Number [place] [address] [employer] [place], [place] [id number] * Magnesium (02/22/2025 2:13 AM CDT) Pathologist [facility] Magnesium 2.4 1.4 - 2.5 mg/dL Blood 02/22/2025 2:13 AM CDT 02/22/2025 2:19 AM CDT Evgeny Villalba MD LAB BLOOD ORDERABLES Madhavi l Result Performing Organization Address City/[facility]/ZIP Co de Phone Number [facility] [address] [place] [address] * (ABNORMAL) Basic metabolic panel (02/22/2025 2:13 AM CDT) Sodium 151(H) 135 - 145 mmol/L Potassium, pl 4.4 3.3 - 4.9 mmol/L [facility] Chloride 112(H) 97 - 110 mmol/L [facility] CO2 25 22 - 32 mmol/L [facility] Anion gap 14 2 - 15 mmol/L [facility] BUN 44(H) 6 - 25 mg/dL [facility] Creatinine 1.20 0.80 - 1.30 mg/dL [facility] Glucose 256(H) 70 - 199 mg/dL [facility] Comment: Interpretive Data Fasting glucose >/= 126 [...] 2022. Calcium 8.6 8.5 - 10.3 mg/dL [facility] Blood 02/22/2025 2:13 AM CDT 02/22/2025 2:19 AM CDT us Evgeny Villalba MD LAB BLOOD ORDERABLES Madhavi de luna Result [facility] [address] [place] [address] * (ABNORMAL) POCT glucose (02/21/2025 11:38 PM CDT) Pathologist [facility] Glucose, POC 229(H) 70 - 199 mg/dL Comment: For Glucose values <35 mg/dl when Hematocrit is >60 mg/dl,the test may not accurately detect significant hypoglycemia,and testing in the Laboratory should be considered if clinically indicated. POC Performer [id number] [facility] Blood 02/21/2025 11:3 8 PM CDT 02/21/2025 11:38 PM CDT Evgeny Villalba MD LAB POCT ORDERABLES - DEV ICE Final Result [facility] [address] [facility] [place] [address] * (ABNORMAL) POCT glucose (02/21/2025 7:44 PM CDT) Glucose, POC 283(H) 70 - 199 mg/dL Comment: For Glucose values <35 mg/dl when Hematocrit is >60 mg/dl,the test may not accurately detect significant hypoglycemia,and testing in the Laboratory should be considered if clinically indicated. POC Performer [id number] [facility] Blood 02/21/2025 7:44 PM CDT 02/21/2025 7:44 PM CDT Evgeny Villalba MD LAB POCT ORDERABLES - DEV ICE Final Result Performing Organization Address [facility] Co de Phone Number [facility] [address] [facility] [employer] [place], [place] [id number] * (ABNORMAL) POCT glucose (02/21/2025 3:52 PM CDT) Glucose, POC 240(H) 70 - 199 mg/dL Comment: For Glucose values <35 mg/dl when Hematocrit is >60 mg/dl,the test may not accurately detect significant hypoglycemia,and testing in the Laboratory should be considered if clinically indicated. POC Performer [id number] [facility] Blood 02/21/2025 3:52 PM CDT 02/21/2025 3:52 PM CDT Evgeny Villalba MD LAB POCT ORDERABLES - DEV ICE Final Result Performing Organization Address City/[facility]/ZIP Co de Phone Number [facility] [address] [facility] [place] [address] * (ABNORMAL) POCT glucose (02/21/2025 11:17 AM CDT) Glucose, POC 217(H) 70 - 199 mg/dL Comment: For Glucose values <35 mg/dl when Hematocrit is >60 mg/dl,the test may not accurately detect significant hypoglycemia,and testing in the Laboratory should be considered if clinically indicated. POC Performer [phone] [facility] Blood 02/21/2025 11:1 7 AM CDT 02/21/2025 11:17 AM CDT Evgeny Villalba MD LAB POCT ORDERABLES - DEV ICE Final Result Performing Organization Address [facility] Co de Phone Number [facility] [address] [facility] [place] [address] * (ABNORMAL) POCT glucose (02/21/2025 7:24 AM CDT) Glucose, POC 216(H) 70 - 199 mg/dL Comment: For Glucose values <35 mg/dl when Hematocrit is >60 mg/dl,the test may not accurately detect significant hypoglycemia,and testing in the Laboratory should be considered if clinically indicated. POC Performer [id number] [facility] Blood 02/21/2025 7:24 AM CDT 02/21/2025 7:24 AM CDT Evgeny Villalba MD LAB POCT ORDERABLES - DEV ICE Final Result Performing Organization Address City/[facility]/ZIP Co de Phone Number [facility] [address] [facility] [place] [address] * Magnesium - Add on lab test (02/21/2025 5:14 AM CDT) Acceptable Yes Blood 02/21/2025 5:14 AM CDT 02/21/2025 5:14 AM CDT Narrative [facility] - 02/21/2025 5:16 AM CDT Name of Test->Magnesium Luis M Vasquez MD LAB BLOOD ORDERABLES Final Result [facility] [address] [facility] [place] [address] * BMP - Add on lab test (02/21/2025 5:14 AM CDT) Acceptable No Blood 02/21/2025 5:14 AM CDT 02/21/2025 5:14 AM CDT [facility]ative [facility] - 02/21/2025 5:16 AM CDT Name of Test->BMP Luis M Vasquez MD LAB BLOOD ORDERABLES Final Result Performing Organization Address [facility] Co de Phone Number [facility] [address] [facility] [place] [address] * XR Chest 1 View (02/21/2025 4:31 AM CDT) Anatomical Region Laterality Modality Body, Chest N/A Computed Radiogr aphy 02/21/2025 4:45 AM CDT Impressions 02/21/2025 4:45 AM CDT Endotracheal tube tip is 2.5 cm above the marisela. Gastric tube courses below the diaphragm and tip projects below the yyfby-ta-wram. Median sternotomy wires are unchanged. Stable small [...] the diaphragm and tip projects below the tumro-kt-laed. Median sternotomy wires are unchanged. Stable small [...] LAB BLOOD ORDERABLES F inal Result [facility] [address] [place] [address] * (ABNORMAL) eGFR (02/21/2025 3:13 AM CDT) [...] CDT 02/21/2025 3:56 AM CDT us Rehana Kaylan Violetta DO LAB BLOOD ORDERABLES F inal Result [facility] [address] [place] [address] * (ABNORMAL) Differential, auto (02/21/2025 3:13 AM CDT) Neutrophil abs 9.98(H) 1.50 - 6.50 K/cumm Imm gran abs 0.10 0.00 - 0.10 K/cumm [facility] Lymphocyte abs 1.65 0.80 - 3.30 K/cumm [facility] Monocyte abs 1.38(H) 0.20 - 0.80 K/cumm [facility] Eosinophil abs 0.01 0.00 - 0.50 K/cumm [facility] Basophil abs 0.04 0.00 - 0.10 K/cumm [facility] Neutrophil pct 75.8 % [facility] Comment: Interpretive Data Percent cell count reference ranges are not reported, since discordance with absolute values may lead to misinterpretation of CBC data. Current Interpretive Data was last revised on 2018. Imm gran pct 0.8 % [facility] Comment: Interpretive Data Percent cell count reference ranges are not reported, since discordance with absolute values may lead to misinterpretation of CBC data. Current Interpretive Data was last revised on 2018. Lymphocyte pct 12.5 % [facility] Comment: Interpretive Data Percent cell count reference ranges are not reported, since discordance with absolute values may lead to misinterpretation of CBC data. Current Interpretive Data was last revised on 2018. Monocyte pct 10.5 % [facility] Comment: Interpretive Data Percent cell count reference ranges are not reported, since discordance with absolute values may lead to misinterpretation of CBC data. Current Interpretive Data was last revised on 2018. Eosinophil pct 0.1 % [facility] Comment: Interpretive Data Percent cell count reference ranges are not reported, since discordance with absolute values may lead to misinterpretation of CBC data. Current Interpretive Data was last revised on 2018. Basophil pct 0.3 % [facility] Comment: Interpretive Data Percent cell count reference ranges are not reported, since discordance with absolute values may lead to misinterpretation of CBC data. Current Interpretive Data was last revised on 2018. Blood 02/21/2025 3:13 AM CDT 02/21/2025 3:56 AM CDT Rehana Mackeyjerzy DO LAB BLOOD ORDERABLES F inal Result Performing Organization Address City/[facility]/ZIP Co de Phone Number [facility] [address] [facility] [employer] [place], [place] [id number] * (ABNORMAL) Procalcitonin (02/21/2025 3:13 AM CDT) Pathologist [facility] Procalcitonin 1.03(H) <=0.25 ng/mL Blood 02/21/2025 3:13 AM CDT 02/21/2025 3:56 AM CDT Rehana Kaylan Mackeyjerzy DO LAB BLOOD ORDERABLES F inal Result Performing Organization Address City/[facility]/ZIP Co de Phone Number [facility] [address] [facility] [employer] [place], [place] [phone] * (ABNORMAL) CBC with auto differential (02/21/2025 3:13 AM CDT) WBC 13.16(H) 3.80 - 9.90 K/cumm Hgb 13.1 13.0 - 17.5 g/dL [facility] Hct 43.9 38.9 - 50.3 % [facility] Plt 176 150 - 400 K/cumm [facility] MPV 11.6 9.1 - 12.3 fL [facility] RBC 4.56 4.30 - 5.80 M/cumm [facility] MCV 96.3 81.3 - 96.4 fL [facility] MCH 28.7 27.1 - 33.3 pg [facility] MCHC 29.8(L) 32.3 - 35.7 g/dL [facility] RDW CV 15.9(H) 11.1 - 14.9 % [facility] RDW SD 56.6(H) 35.7 - 48.1 fL [facility] NRBC abs 0.00 0.00 - 0.01 K/cumm [facility] Blood 02/21/2025 3:13 AM CDT 02/21/2025 3:56 AM CDT Rehana Kaylan Barks DO LAB BLOOD ORDERABLES F inal Result Performing Organization Address City/[facility]/ZIP Co de Phone Number [facility] [address] [employer] [place], [place] [phone] * Phosphorus (02/21/2025 3:13 AM CDT) Phosphorus, pl 3.0 2.3 - 4.5 mg/dL Blood 02/21/2025 3:13 AM CDT 02/21/2025 3:56 AM CDT Rehana Kaylan Hello Agents DO LAB BLOOD ORDERABLES F inal Result Performing Organization Address [facility] Co de Phone Number [facility] [address] [place] [address] * Magnesium (02/21/2025 3:13 AM CDT) Magnesium 2.3 1.4 - 2.5 mg/dL Blood 02/21/2025 3:13 AM CDT 02/21/2025 3:56 AM CDT rubberitrice Hello Agents DO LAB BLOOD ORDERABLES F inal Result Performing Organization Address City/[facility]/ZIP Co de Phone Number [facility] [address] [employer] [place], [place] [phone] * (ABNORMAL) Comprehensive metabolic panel (02/21/2025 3:13 AM CDT) Sodium 147(H) 135 - 145 mmol/L Potassium, pl 4.1 3.3 - 4.9 mmol/L [facility] Chloride 111(H) 97 - 110 mmol/L [facility] CO2 23 22 - 32 mmol/L [facility] Anion gap 13 2 - 15 mmol/L [facility] BUN 37(H) 6 - 25 mg/dL [facility] Creatinine 1.37(H) 0.80 - 1.30 mg/dL [facility] Glucose 213(H) 70 - 199 mg/dL [facility] Comment: Interpretive Data Fasting glucose >/= 126 [...] 2022. Calcium 8.3(L) 8.5 - 10.3 mg/dL [facility] Bilirubin, total 0.5 0.1 - 1.2 mg/dL [facility] Protein, pl 6.3(L) 6.5 - 8.5 g/dL [facility] Albumin 2.9(L) 3.5 - 5.0 g/dL [facility] Alk phos 82 40 - 130 Units/L [facility] ALT 8 7 - 55 Units/L [facility] AST 18 10 - 50 Units/L [facility] Blood 02/21/2025 3:13 AM CDT 02/21/2025 3:56 AM CDT us Rehana Shipley DO LAB BLOOD ORDERABLES F inal Result [facility] [address] [place] [address] * POCT glucose (02/21/2025 3:01 AM CDT) Glucose, POC 198 70 - 199 mg/dL Comment: For Glucose values <35 mg/dl when Hematocrit is >60 mg/dl,the test may not accurately detect significant hypoglycemia,and testing in the Laboratory should be considered if clinically indicated. POC Performer [id number] [facility] Blood 02/21/2025 3:01 AM CDT 02/21/2025 3:01 AM CDT Rehana Shipley LAB POCT ORDERABLES - DEVICE Final Result Performing Organization Address [facility]/ZIP Co de Phone Number [facility] [address] [place] [address] * (ABNORMAL) POCT glucose (02/20/2025 11:57 PM CDT) Glucose, POC 204(H) 70 - 199 mg/dL Comment: For Glucose values <35 mg/dl when Hematocrit is >60 mg/dl,the test may not accurately detect significant hypoglycemia,and testing in the Laboratory should be considered if clinically indicated. POC Performer [id number] [facility] Blood 02/20/2025 11:5 7 PM CDT 02/20/2025 11:57 PM CDT Rehana Shipley DO LAB POCT ORDERABLES - DEVICE Final Result [facility] [address] [place] [address] * POCT glucose (02/20/2025 7:40 PM CDT) Glucose, POC 166 70 - 199 mg/dL Comment: For Glucose values <35 mg/dl when Hematocrit is >60 mg/dl,the test may not accurately detect significant hypoglycemia,and testing in the Laboratory should be considered if clinically indicated. POC Performer [id number] [facility] Blood 02/20/2025 7:40 PM CDT 02/20/2025 7:40 PM CDT Rehana Kaylan Violetta DO LAB POCT ORDERABLES - DEVICE Final Result Performing Organization Address [facility]/ZIP Co de Phone Number [facility] [address] [employer] [place], [place] [phone] * (ABNORMAL) POCT glucose (02/20/2025 5:38 PM CDT) Glucose, POC 214(H) 70 - 199 mg/dL Comment: For Glucose values <35 mg/dl when Hematocrit is >60 mg/dl,the test may not accurately detect significant hypoglycemia,and testing in the Laboratory should be considered if clinically indicated. POC Performer [id number] [facility] Blood 02/20/2025 5:38 PM CDT 02/20/2025 5:38 PM CDT Rehana Shipley DO LAB POCT ORDERABLES - DEVICE Final Result Performing Organization Address [facility] Co de Phone Number [facility] [address] [employer] [place], [place] [phone] * (ABNORMAL) eGFR (02/20/2025 5:36 PM CDT) [...] ORDERABLES F inal Result Performing Organization Address [facility] Co de Phone Number [facility] [address] [employer] [place], [place] [phone] * Strep pneumoniae antigen, urine Urine (02/20/2025 [...] ERAL ORDERABLES Final Result Performing Organization Address [facility]/ZIP Co de Phone Number [facility] [address] [employer] [place], [place] [phone] * Legionella antigen Urine (02/20/2025 5:36 PM CDT) Legionella Ag Negative Negative Comment: Interpretive Data This test detects only Legionella pneumophila serogroup 1 antigen. Current interpretive data was last revised on 2019. Urine 02/20/2025 5:36 PM CDT 02/20/2025 5:36 PM CDT Rehana Shipley DO LAB MICROBIOLOGY - GEN ERAL ORDERABLES Final Result [facility] [address] [place] [address] * Magnesium (02/20/2025 5:36 PM CDT) [facility] Magnesium 2.2 1.4 - 2.5 mg/dL Blood 02/20/2025 5:36 PM CDT 02/20/2025 5:48 PM CDT Rehana Shipley DO LAB BLOOD ORDERABLES F inal Result Performing Organization Address [facility] de Phone Number [facility] [address] [place] [address] * (ABNORMAL) Basic metabolic panel (02/20/2025 5:36 PM CDT) [facility] Sodium 147(H) 135 - 145 mmol/L Potassium, pl 3.8 3.3 - 4.9 mmol/L [facility] Chloride 109 97 - 110 mmol/L [facility] CO2 22 22 - 32 mmol/L [facility] Anion gap 16(H) 2 - 15 mmol/L [facility] BUN 34(H) 6 - 25 mg/dL [facility] Creatinine 1.49(H) 0.80 - 1.30 mg/dL [facility] Glucose 188 70 - 199 mg/dL [facility] Comment: Interpretive Data Fasting glucose >/= 126 [...] 2022. Calcium 8.0(L) 8.5 - 10.3 mg/dL [facility] Blood 02/20/2025 5:36 PM CDT 02/20/2025 5:48 PM CDT Rehana Shipley LAB BLOOD ORDERABLES F inal Result Performing Organization Address [facility] Co de Phone Number [facility] [address] [place] [address] * (ABNORMAL) Troponin T high-sensitivity (02/20/2025 1:08 PM CDT) Pathologist [facility] Trop T hs 88(H) <=22 ng/L Comment: Interpretive Data For further hscTnT resources including the diagnostic algorithm and an aid in interpretation, copy and paste this link: https://nrl.testcatalog.org/show/hsTrop Current Interpretive Data last revised 2020. Blood 02/20/2025 1:08 PM CDT 02/20/2025 1:14 PM CDT Rehana Shipley [facility] BLOOD ORDERABLES F inal Result Performing Organization Address [facility] Co de Phone Number [facility] [address] [place] [address] * Potassium (02/20/2025 1:08 PM CDT) Potassium, pl 3.3 3.3 - 4.9 mmol/L Comment:Hemolyzed; potassium value may be falsely elevated by as much as 0.3 - 0.5 mmol/L. Suggest redraw and reanalysis Blood 02/20/2025 1:08 PM CDT 02/20/2025 1:14 PM CDT Narrative [facility] - 02/20/2025 1:32 PM CDT Draw 4 hours after second potassium chloride dose completed. Brayden Roach MD LAB BLOOD ORDERABLES Final Result Performing Organization Address [facility]/ZIP Co de Phone Number [facility] [address] [place] [address] * POCT glucose (02/20/2025 1:01 PM CDT) Glucose, POC 193 70 - 199 mg/dL Comment: For Glucose values <35 mg/dl when Hematocrit is >60 mg/dl,the test may not accurately detect significant hypoglycemia,and testing in the Laboratory should be considered if clinically indicated. POC Performer [id number] [facility] Blood 02/20/2025 1:01 PM CDT 02/20/2025 1:01 PM CDT Rehana Shipley DO LAB POCT ORDERABLES - DEVICE Final Result Performing Organization Address [facility] Co de Phone Number [facility] [address] [place] [address] * Blood culture Blood (02/20/2025 10:36 AM CDT) [facility] Report Final Report: No growth Blood 02/20/2025 10:3 6 AM CDT 02/20/2025 10:38 AM CDT Narrative [facility] - 02/25/2025 1:00 PM CDT From a [...] organism identification may be performed using the [employer] Blood Culture Identification panel. This assay detects microbial DNA in a blood culture broth. This assay has been cleared by the [place] Food and Drug Administration and its performance characteristics have been verified by the [facility]. Interpretive data was last revised on November 09, 2022. Rehana Shipley LAB MICROBIOLOGY - GEN ERAL ORDERABLES Final Result Performing Organization Address City/[facility]/ZIP Co de Phone Number [facility] [address] [place] [address] * Blood culture Blood (02/20/2025 10:36 AM CDT) Report Final Report: No growth Blood 02/20/2025 10:3 6 AM CDT 02/20/2025 10:38 AM CDT Narrative [facility] - 02/25/2025 1:00 PM CDT Collection->Peripheral Interpretive [...] organism identification may be performed using the [employer] Blood Culture Identification panel. This assay detects microbial DNA in a blood culture broth. This assay has been cleared by the [place] Food and Drug Administration and its performance characteristics have been verified by the [facility]. Interpretive data was last revised on November 09, 2022. Rehana Shipley LAB MICROBIOLOGY - GEN ERAL ORDERABLES Final Result Performing Organization Address City/[facility] Co de Phone Number [facility] [address] [place] [address] * (ABNORMAL) POCT glucose (02/20/2025 8:48 AM CDT) Glucose, POC 223(H) 70 - 199 mg/dL Comment: For Glucose values <35 mg/dl when Hematocrit is >60 mg/dl,the test may not accurately detect significant hypoglycemia,and testing in the Laboratory should be considered if clinically indicated. POC Performer [id number] [facility] Blood 02/20/2025 8:48 AM CDT 02/20/2025 8:48 AM CDT Rehana Shipley DO LAB POCT ORDERABLES - DEVICE Final Result Performing Organization Address [facility] Co de Phone Number [facility] [address] [place] [address] * (ABNORMAL) Aerobic culture and gram stain Tracheal aspirate Lung (02/20/2025 6:57 AM CDT) Direct Specimen Exam Stain: Moderate squamous epithelial cells seen. Many polymorphonuclear leukocytes seen. Moderate mixed bacterial heriberto seen on Gram stain. Report Final Report: Moderate growth of: Escherichia coli Light growth normal heriberto (.) [facility] Organism ESCHERICHIA COLI [facility] Tracheal aspirate (Lung) 02/20/2025 6:57 AM CDT [...] ERAL ORDERABLES Final Result Performing Organization Address [facility] Co de Phone Number [facility] [address] [place] [address] * XR Chest 1 View (02/20/2025 4:15 [...] CDT 02/20/2025 3:30 AM CDT us Rehana Kimbrough Violetta DO LAB BLOOD ORDERABLES F inal Result [facility] [address] [place] [address] * (ABNORMAL) Differential, auto (02/20/2025 3:06 AM CDT) Neutrophil abs 9.80(H) 1.50 - 6.50 K/cumm Imm gran abs 0.07 0.00 - 0.10 K/cumm [facility] Lymphocyte abs 2.37 0.80 - 3.30 K/cumm [facility] Monocyte abs 1.86(H) 0.20 - 0.80 K/cumm [facility] Eosinophil abs 0.02 0.00 - 0.50 K/cumm [facility] Basophil abs 0.04 0.00 - 0.10 K/cumm [facility] Neutrophil pct 69.3 % [facility] Comment: Interpretive Data Percent cell count reference ranges are not reported, since discordance with absolute values may lead to misinterpretation of CBC data. Current Interpretive Data was last revised on 2018. Imm gran pct 0.5 % [facility] Comment: Interpretive Data Percent cell count reference ranges are not reported, since discordance with absolute values may lead to misinterpretation of CBC data. Current Interpretive Data was last revised on 2018. Lymphocyte pct 16.7 % [facility] Comment: Interpretive Data Percent cell count reference ranges are not reported, since discordance with absolute values may lead to misinterpretation of CBC data. Current Interpretive Data was last revised on 2018. Monocyte pct 13.1 % [facility] Comment: Interpretive Data Percent cell count reference ranges are not reported, since discordance with absolute values may lead to misinterpretation of CBC data. Current Interpretive Data was last revised on 2018. Eosinophil pct 0.1 % [facility] Comment: Interpretive Data Percent cell count reference ranges are not reported, since discordance with absolute values may lead to misinterpretation of CBC data. Current Interpretive Data was last revised on 2018. Basophil pct 0.3 % [facility] Comment: Interpretive Data Percent cell count reference ranges are not reported, since discordance with absolute values may lead to misinterpretation of CBC data. Current Interpretive Data was last revised on 2018. Blood 02/20/2025 3:06 AM CDT 02/20/2025 3:30 AM CDT us Brayden Roach MD LAB BLOOD ORDERABLES Final Result [facility] [address] [place] [address] * (ABNORMAL) CBC with auto differential (02/20/2025 3:06 AM CDT) WBC 14.16(H) 3.80 - 9.90 K/cumm Hgb 12.6(L) 13.0 - 17.5 g/dL [facility] Hct 41.0 38.9 - 50.3 % [facility] Plt 196 150 - 400 K/cumm [facility] MPV 11.0 9.1 - 12.3 fL [facility] RBC 4.32 4.30 - 5.80 M/cumm [facility] MCV 94.9 81.3 - 96.4 fL [facility] MCH 29.2 27.1 - 33.3 pg [facility] MCHC 30.7(L) 32.3 - 35.7 g/dL [facility] RDW CV 15.9(H) 11.1 - 14.9 % [facility] RDW SD 55.6(H) 35.7 - 48.1 fL [facility] NRBC abs 0.00 0.00 - 0.01 K/cumm [facility] Blood 02/20/2025 3:06 AM CDT 02/20/2025 3:30 AM CDT Brayden Roach MD LAB BLOOD ORDERABLES Final Result Performing Organization Address City/[facility]/ZIP Co de Phone Number [facility] [address] [facility] [employer] [place], [place] [id number] * (ABNORMAL) Phosphorus (02/20/2025 3:06 AM CDT) Pathologist [facility] Phosphorus, pl 5.0(H) 2.3 - 4.5 mg/dL Blood 02/20/2025 3:06 AM CDT 02/20/2025 3:30 AM CDT Rehana Shipley DO LAB BLOOD ORDERABLES F inal Result Performing Organization Address [facility] Co de Phone Number [facility] [address] Department [employer] [place], [place] [id number] * Magnesium (02/20/2025 3:06 AM CDT) [facility] Magnesium 2.1 1.4 - 2.5 mg/dL Comment:Reviewed Blood 02/20/2025 3:06 AM CDT 02/20/2025 3:30 AM CDT Rehana Shipley DO LAB BLOOD ORDERABLES F inal Result Performing Organization Address [facility]/ZIP Co de Phone Number [facility] [address] [place] [address] * (ABNORMAL) Comprehensive metabolic panel (02/20/2025 3:06 AM CDT) Pathologist [facility] Sodium 144 135 - 145 mmol/L Potassium, pl 3.2(L) 3.3 - 4.9 mmol/L [facility] Chloride 106 97 - 110 mmol/L [facility] CO2 26 22 - 32 mmol/L [facility] Anion gap 12 2 - 15 mmol/L [facility] BUN 34(H) 6 - 25 mg/dL [facility] Creatinine 1.77(H) 0.80 - 1.30 mg/dL [facility] Glucose 186 70 - 199 mg/dL [facility] Comment: Interpretive Data Fasting glucose >/= 126 [...] 2022. Calcium 8.1(L) 8.5 - 10.3 mg/dL [facility] Bilirubin, total 0.3 0.1 - 1.2 mg/dL [facility] Protein, pl 6.1(L) 6.5 - 8.5 g/dL [facility] Albumin 3.0(L) 3.5 - 5.0 g/dL [facility] Alk phos 88 40 - 130 Units/L [facility] ALT 15 7 - 55 Units/L [facility] AST 21 10 - 50 Units/L [facility] Blood 02/20/2025 3:06 AM CDT 02/20/2025 3:30 AM CDT us Rehana Shipley DO LAB BLOOD ORDERABLES F inal Result [facility] [address] [place] [address] * POCT glucose (02/19/2025 7:46 PM CDT) [facility] Glucose, POC 165 70 - 199 mg/dL Comment: For Glucose values <35 mg/dl when Hematocrit is >60 mg/dl,the test may not accurately detect significant hypoglycemia,and testing in the Laboratory should be considered if clinically indicated. POC Performer [phone] [facility] Blood 02/19/2025 7:46 PM CDT 02/19/2025 7:46 PM CDT Rehana Shipley [employer] LAB POCT ORDERABLES - DEVICE Final Result Performing Organization Address [facility]/ZIP Co de Phone Number [facility] [address] [place] [address] * POCT glucose (02/19/2025 5:46 PM CDT) Pathologist [facility] Glucose, POC 177 70 - 199 mg/dL Comment: For Glucose values <35 mg/dl when Hematocrit is >60 mg/dl,the test may not accurately detect significant hypoglycemia,and testing in the Laboratory should be considered if clinically indicated. POC Performer [id number] [facility] Blood 02/19/2025 5:46 PM CDT 02/19/2025 5:46 PM CDT Rehana Shipley LAB POCT ORDERABLES - DEVICE Final Result Performing Organization Address [facility] de Phone Number [facility] [address] [place] [address] * (ABNORMAL) eGFR (02/19/2025 3:31 PM CDT) [facility] eGFR 47(L) >=60 mL/min/1. 73 m2 Comment: [...] CDT 02/19/2025 3:52 PM CDT us Rehana Kimbrough Keyjerzy DO LAB BLOOD ORDERABLES F inal Result [facility] [address] [place] [address] * (ABNORMAL) Renal function panel (02/19/2025 3:31 PM CDT) Sodium 149(H) 135 - 145 mmol/L Potassium, pl 4.1 3.3 - 4.9 mmol/L [facility] Comment:Hemolyzed; potassium value may be falsely elevated by as much as 0.6 - 1.0 mmol/L. Suggest redraw and reanalysis Chloride 110 97 - 110 mmol/L [facility] CO2 22 22 - 32 mmol/L [facility] Anion gap 17(H) 2 - 15 mmol/L [facility] BUN 28(H) 6 - 25 mg/dL [facility] Creatinine 1.57(H) 0.80 - 1.30 mg/dL [facility] Glucose 156 70 - 199 mg/dL [facility] Comment: Interpretive Data Fasting glucose >/= 126 [...] 2022. Calcium 8.2(L) 8.5 - 10.3 mg/dL [facility] Phosphorus, pl 5.2(H) 2.3 - 4.5 mg/dL [facility] Albumin 3.2(L) 3.5 - 5.0 g/dL [facility] Blood 02/19/2025 3:31 PM CDT 02/19/2025 3:52 PM CDT us Rehana Shipley DO LAB BLOOD ORDERABLES F inal Result [facility] [address] [place] [address] * TRANSTHORACIC ECHO (TTE) COMPLETE W DOPPLER/CF W CONTRAST (02/19/2025 12:14 PM CDT) Estimated EF 25 % CONS SCIMAGE Anatomical Region Laterality Modality Ultrasound 02/19/2025 7:43 AM CDT Narrative 02/19/2025 12:28 PM CDT [facility] [address] [place] [address] ECHOCARDIOGRAM Patient Name: MAURICIO HEADLEY : 1955 (70y ) Gender: M Study Date: 02/19/2025 07:43:35 AM Ht(Inch): 68 Wt(Lb): 171.96 BSA: 1.93 Java Web Developer: [email or web address] Location: [id number] Order Provider: KARIN RODRIGUEZ BMI: 26.14 BP: [...] right atrial pressures. Exam Interpreted: Read by Reed Maker of the day to expedite patient care. [...] pressures. Electronically Signed By: Hernan Coley MD [facility] 02/19/2025 12:28:06 PM CDT Wall Motion Analysis - Resting Procedure Note Hernan Coley MD - 02/19/2025 [facility] [address] [place] [address] ECHOCARDIOGRAM Patient Name: MAURICIO HEADLEY : 1955 (70y ) Gender: M Study Date: 02/19/2025 07:43:35 AM Ht(Inch): 68 Wt(Lb): 171.96 BSA: 1.93 Java Web Developer: [email or web address] Location: [id number] Order Provider: KARIN RODRIGUEZ BMI: 26.14 BP: [...] intermediateright atrial pressures. Exam Interpreted: Read by Reed Maker of the day to expedite patientcare. CONCLUSIONS: [...] pressures. Electronically Signed By: Hernan Coley MD [facility] 02/19/2025 12:28:06 PM CDT Wall Motion Analysis - Resting Karin Rodriguez MD CV ECHO PROCEDURES Final Res ult * POCT glucose (02/19/2025 11:30 AM CDT) Glucose, POC 140 70 - 199 mg/dL Comment: For Glucose values <35 mg/dl when Hematocrit is >60 mg/dl,the test may not accurately detect significant hypoglycemia,and testing in the Laboratory should be considered if clinically indicated. POC Performer [id number] [facility] Blood 02/19/2025 11:3 0 AM CDT 02/19/2025 11:30 AM CDT Rehana Shipley DO LAB POCT ORDERABLES - DEVICE Final Result Performing Organization Address City/[facility]/ZIP Co de Phone Number [facility] [address] [place] [address] * Lactate (02/19/2025 10:51 AM CDT) Lactate 1.5 0.7 - 2.0 mmol/L Blood 02/19/2025 10:5 1 AM CDT 02/19/2025 10:59 AM CDT Result [facility] Rehana Shipley DO LAB BLOOD ORDERABLES F inal Result [facility] [address] [place] [address] * (ABNORMAL) Procalcitonin (02/19/2025 10:51 AM CDT) Procalcitonin 3.00(H) <=0.25 ng/mL Blood 02/19/2025 10:5 1 AM CDT 02/19/2025 11:03 AM CDT Rehanamoise Kimbrough Violetta DO LAB BLOOD ORDERABLES F inal Result [facility] [address] [place] [address] * Respiratory pathogen panel Nasopharyngeal (02/19/2025 10:51 AM CDT) Pathologist [facility] Influenza A RNA Not Detected Not Detected [facility] Influenza B RNA Not Detected Not Detected [facility] RSV RNA Not Detected Not Detected [facility] COVID-19 RNA Not Detected Not Detected [facility] Coronavirus 229E RNA Not Detected Not Detected [facility] Coronavirus HKU1 RNA Not Detected Not Detected [facility] Coronavirus NL63 RNA Not Detected Not Detected [facility] Coronavirus OC43 RNA Not Detected Not Detected [facility] Adenovirus DNA Not Detected Not Detected [facility] Metapneumovirus RNA Not Detected Not Detected [facility] Rhinovirus/Enterov irus RNA Not Detected Not Detected [facility] Parainfluenza 1 RNA Not Detected Not Detected [facility] Parainfluenza 2 RNA Not Detected Not Detected [facility] Parainfluenza 3 RNA Not Detected Not Detected [facility] Parainfluenza 4 RNA Not Detected Not Detected [facility] B. pertussis DNA Not Detected Not Detected [facility] B. parapertussis DNA Not Detected Not Detected [facility] C. pneumoniae DNA Not Detected Not Detected [facility] M. pneumoniae DNA Not Detected Not Detected [facility] Comment: Interpretive Data The UCR[employer] FilmArray Respiratory Panel (RP2.1) assay is a [...] assay has FDA clearance for testing of [employer] swabs. The performance characteristics of this assay have been determined by [facility]. Current interpretive data was last revised on 2021. Nasopharyngeal 02/19/2025 10 :51 AM CDT 02/19/2025 11:04 AM CDT Narrative [facility] - 02/19/2025 11:56 AM CDT Is the Patient experiencing symptoms consistent with COVID?->Unknown Surveillance testing for transplant patient?->No us Rehana Shipley DO LAB MICROBIOLOGY - GEN ERAL ORDERABLES Final Result [facility] [address] Department [place] [address] MBC * MRSA Only (Staphylococcus aureus) PCR Nasal (02/19/2025 10:51 AM CDT) [facility] PCR Scrn, Methicillin resistant Staphylococcus aureus (MRSA) Not Detected Not Detected Comment: Interpretive Data Testing performed using Nucleic Acid Amplification with the Moobia Xpert MRSA NxG Assay. This assay detects target DNA from mecA, mecC and the SCCmec insertion site of Staphylococcus aureus using Real-Time PCR and has been cleared by the FDA. Performance characteristics have been verified by the [facility]. Current Interpretive Data was last revised on 2023 Nasal 02/19/2025 10:5 1 AM CDT 02/19/2025 11:04 AM CDT Rehana Kaylan Shipley DO LAB MICROBIOLOGY - GEN ERAL ORDERABLES Final Result Performing Organization Address [facility] Co de Phone Number [facility] [address] [place] [address] * Magnesium - Add on lab test (02/19/2025 10:06 AM CDT) Acceptable Yes Blood 02/19/2025 10:0 6 AM CDT 02/19/2025 10:06 AM CDT Narrative [facility] - 02/19/2025 10:07 AM CDT Name of Test->Magnesium Rehana Shipley DO LAB BLOOD ORDERABLES F inal Result Performing Organization Address [facility] de Phone Number [facility] [address] [place] [address] * Phosphorus - Add on lab test (02/19/2025 10:06 AM CDT) Acceptable Yes Blood 02/19/2025 10:0 6 AM CDT 02/19/2025 10:06 AM CDT Narrative [facility] - 02/19/2025 10:07 AM CDT Name of Test->Phosphorus Rehana Kaylan Shipley DO LAB BLOOD ORDERABLES F inal Result Performing Organization Address [facility] Co de Phone Number [facility] [address] [place] [address] * POCT glucose (02/19/2025 9:37 AM CDT) Glucose, POC 130 70 - 199 mg/dL Comment: For Glucose values <35 mg/dl when Hematocrit is >60 mg/dl,the test may not accurately detect significant hypoglycemia,and testing in the Laboratory should be considered if clinically indicated. POC Performer [id number] [facility] Blood 02/19/2025 9:37 AM CDT 02/19/2025 9:37 AM CDT Rehana Shipley DO LAB POCT ORDERABLES - DEVICE Final Result [facility] [address] Department [place] [address] * XR Chest 1 View (02/19/2025 8:50 [...] signed by: Munir Rojas M.D. us Rehana Shpiley DO IMG XR PROCEDURES Madhavi l Result * (ABNORMAL) eGFR (02/19/2025 3:11 AM CDT) Pathologist [facility] eGFR 52(L) >=60 mL/min/1. 73 m2 Comment: [...] 3:11 AM CDT 02/19/2025 3:34 AM CDT us Karin Rodriguez MD LAB BLOOD ORDERABLES Final R esult [facility] [address] [place] [address] * (ABNORMAL) CBC without differential (02/19/2025 3:11 AM CDT) Pathologist [facility] WBC 14.88(H) 3.80 - 9.90 K/cumm Hgb 13.7 13.0 - 17.5 g/dL [facility] Hct 44.7 38.9 - 50.3 % [facility] Plt 235 150 - 400 K/cumm [facility] MPV 11.0 9.1 - 12.3 fL [facility] RBC 4.73 4.30 - 5.80 M/cumm [facility] MCV 94.5 81.3 - 96.4 fL [facility] MCH 29.0 27.1 - 33.3 pg [facility] MCHC 30.6(L) 32.3 - 35.7 g/dL [facility] RDW CV 15.9(H) 11.1 - 14.9 % [facility] RDW SD 55.0(H) 35.7 - 48.1 fL [facility] NRBC abs 0.00 0.00 - 0.01 K/cumm [facility] Blood 02/19/2025 3:11 AM CDT 02/19/2025 3:35 AM CDT Karin Rodriguez MD LAB BLOOD ORDERABLES Final R esult [facility] [address] [employer] [place] [address] * (ABNORMAL) Phosphorus (02/19/2025 3:11 AM CDT) Phosphorus, pl 5.5(H) 2.3 - 4.5 mg/dL Blood 02/19/2025 3:11 AM CDT 02/19/2025 3:34 AM CDT Rehana Shipley DO LAB BLOOD ORDERABLES F inal Result [facility] [address] [place] [address] * (ABNORMAL) Magnesium (02/19/2025 3:11 AM CDT) Magnesium 2.9(H) 1.4 - 2.5 mg/dL Comment:Reviewed Blood 02/19/2025 3:11 AM CDT 02/19/2025 3:34 AM CDT Rehana Shipley DO LAB BLOOD ORDERABLES F inal Result Performing Organization Address City/[facility]/ZIP Co de Phone Number [facility] [address] [place] [address] * (ABNORMAL) Basic metabolic panel (02/19/2025 3:11 AM CDT) Pathologist [facility] Sodium 149(H) 135 - 145 mmol/L Potassium, pl 3.6 3.3 - 4.9 mmol/L [facility] Chloride 109 97 - 110 mmol/L [facility] CO2 23 22 - 32 mmol/L [facility] Anion gap 17(H) 2 - 15 mmol/L [facility] BUN 25 6 - 25 mg/dL [facility] Creatinine 1.43(H) 0.80 - 1.30 mg/dL [facility] Glucose 151 70 - 199 mg/dL [facility] Comment: Interpretive Data Fasting glucose >/= 126 [...] 2022. Calcium 8.0(L) 8.5 - 10.3 mg/dL [facility] Blood 02/19/2025 3:11 AM CDT 02/19/2025 3:34 AM CDT us Karin Rodriguez MD LAB BLOOD ORDERABLES Final R esult Performing Organization Address [facility]/ZIP Co de Phone Number [facility] [address] [place] [address] * (ABNORMAL) Urinalysis reflex to microscopic and culture Urine (02/18/2025 11:51 PM CDT) Color, ur Yellow Yellow Clarity, ur Clear Clear [facility] Specific gravity, ur 1.029 1.003 - 1.030 [facility] pH, urine 5.5 [facility] Comment: Interpretive Data U rine pH is affected by diet, medications, systemic acid-base disturbances, and renal tubular function. pH may affect urinary stone formation. For example, urine pH below 6.0 may help reduce the tendency for calcium phosphate stones and pH greater than 6.0 may reduce the tendency for uric acid stone formation. Source: [facility] [employer] Current Interpretive Data was last revised on 2017 Protein, ur ql Trace Negative [facility] Glucose, ur ql 2+(A) Negative [facility] Ketones, ur Negative Negative [facility] Bilirubin, ur Negative Negative [facility] Blood, ur Trace(A) Negative [facility] Urobilinogen, ur <2.0 <2.0 mg/dL [facility] Nitrite, ur Negative Negative [facility] Leukocyte esterase, ur Negative Negative [facility] UA reflex comment Reflex to microscopic UA will be performed. [facility] Urine 02/18/2025 11:5 1 PM CDT 02/19/2025 12:08 AM CDT Karin Rodriguez MD LAB MICROBIOLOGY - GENERAL O RDERABLES Final Result [facility] [address] [place] [address] * (ABNORMAL) Urinalysis, microscopic only (02/18/2025 11:51 PM CDT) WBC, ur 0-5 0 - 5 /HPF RBC, ur 0-2 0 - 2 /HPF [facility] Mucous, ur Present(A) [facility] Culture Reflex Comment Reflex conditions for urine culture (WBC >10) not met. [facility] Urine 02/18/2025 11:5 1 PM CDT 02/19/2025 12:08 AM CDT Karin Rodriguez MD LAB URINE ORDERABLES Final R esult Performing Organization Address [facility] Co de Phone Number [facility] [address] [place] [address] * POCT glucose (02/18/2025 11:43 PM CDT) Glucose, POC 135 70 - 199 mg/dL Comment: For Glucose values <35 mg/dl when Hematocrit is >60 mg/dl,the test may not accurately detect significant hypoglycemia,and testing in the Laboratory should be considered if clinically indicated. POC Performer [phone] [facility] Blood 02/18/2025 11:4 3 PM CDT 02/18/2025 11:43 PM CDT Rehana Shipley DO LAB POCT ORDERABLES - DEVICE Final Result Performing Organization Address [facility] Co de Phone Number [facility] [address] [place] [address] * POCT glucose (02/18/2025 9:12 PM CDT) Glucose, POC 122 70 - 199 mg/dL Comment: For Glucose values <35 mg/dl when Hematocrit is >60 mg/dl,the test may not accurately detect significant hypoglycemia,and testing in the Laboratory should be considered if clinically indicated. POC Performer [id number] [facility] Blood 02/18/2025 9:12 PM CDT 02/18/2025 9:12 PM CDT Rehana Shipley LAB POCT ORDERABLES - DEVICE Final Result Performing Organization Address [facility] Co de Phone Number [facility] [address] [place] [address] * (ABNORMAL) eGFR (02/18/2025 9:01 PM CDT) [...] LAB BLOOD ORDERABLES Final R esult [facility] [address] [place] [address] * (ABNORMAL) Pro B-type natriuretic peptide (02/18/2025 9:01 PM CDT) Pathologist [facility] NT-proBNP 14,237(H) <=300 pg/mL Comment: Interpretive Comments: [...] MD LAB BLOOD ORDERABLES Final R esult [facility] [address] [place] [address] * (ABNORMAL) CBC without differential (02/18/2025 9:01 PM CDT) WBC 17.15(H) 3.80 - 9.90 K/cumm Hgb 14.5 13.0 - 17.5 g/dL [facility] Hct 47.7 38.9 - 50.3 % [facility] Plt 246 150 - 400 K/cumm [facility] MPV 11.1 9.1 - 12.3 fL [facility] RBC 5.01 4.30 - 5.80 M/cumm [facility] MCV 95.2 81.3 - 96.4 fL [facility] MCH 28.9 27.1 - 33.3 pg [facility] MCHC 30.4(L) 32.3 - 35.7 g/dL [facility] RDW CV 15.7(H) 11.1 - 14.9 % [facility] RDW SD 54.9(H) 35.7 - 48.1 fL [facility] NRBC abs 0.00 0.00 - 0.01 K/cumm [facility] Blood 02/18/2025 9:01 PM CDT 02/18/2025 9:33 PM CDT us Karin Rodriguez MD LAB BLOOD ORDERABLES Final R esult Performing Organization Address City/[facility]/ZIP Co de Phone Number [facility] [address] [place] [address] * (ABNORMAL) Triglycerides (02/18/2025 9:01 [...] ORDERABLES F inal Result Performing Organization Address [facility]/ZIP Co de Phone Number [facility] [address] [place] [address] * (ABNORMAL) Phosphorus (02/18/2025 9:01 PM CDT) Phosphorus, pl 5.0(H) 2.3 - 4.5 mg/dL Blood 02/18/2025 9:01 PM CDT 02/18/2025 9:32 PM CDT Karin Rodriguez MD LAB BLOOD ORDERABLES Final R esult Performing Organization Address [facility] Co de Phone Number [facility] [address] [facility] [place] [address] * Magnesium (02/18/2025 9:01 PM CDT) Pathologist [facility] Magnesium 2.2 1.4 - 2.5 mg/dL Blood 02/18/2025 9:01 PM CDT 02/18/2025 9:32 PM CDT Karin Rodriguez MD LAB BLOOD ORDERABLES Final R esult Performing Organization Address [facility] de Phone Number [facility] [address] [place] [address] * (ABNORMAL) Comprehensive metabolic panel (02/18/2025 9:01 PM CDT) Pathologist [facility] Sodium 149(H) 135 - 145 mmol/L Potassium, pl 3.7 3.3 - 4.9 mmol/L [facility] Chloride 110 97 - 110 mmol/L [facility] CO2 22 22 - 32 mmol/L [facility] Anion gap 17(H) 2 - 15 mmol/L [facility] BUN 23 6 - 25 mg/dL [facility] Creatinine 1.34(H) 0.80 - 1.30 mg/dL [facility] Glucose 107 70 - 199 mg/dL [facility] Comment: Interpretive Data Fasting glucose >/= 126 [...] 2022. Calcium 8.3(L) 8.5 - 10.3 mg/dL [facility] Bilirubin, total 0.3 0.1 - 1.2 mg/dL [facility] Protein, pl 6.5 6.5 - 8.5 g/dL [facility] Albumin 3.2(L) 3.5 - 5.0 g/dL [facility] Alk phos 116 40 - 130 Units/L [facility] ALT 24 7 - 55 Units/L [facility] AST 48 10 - 50 Units/L [facility] Blood 02/18/2025 9:01 PM CDT 02/18/2025 9:32 PM CDT Karin Rodriguez MD LAB BLOOD ORDERABLES Final R esult Performing Organization Address City/[facility]/ZIP Co de Phone Number [facility] [address] [employer] [place] [address] * (ABNORMAL) Lactate (02/18/2025 9:00 PM CDT) [facility] Lactate 2.1(H) 0.7 - 2.0 mmol/L Blood 02/18/2025 9:00 PM CDT 02/18/2025 9:05 PM CDT Karin Rodriguez MD LAB BLOOD ORDERABLES Final R esult Performing Organization Address City/[facility]/ZIP Co de Phone Number [facility] [address] [place] [address] * aPTT (02/18/2025 9:00 PM CDT) Pathologist [facility] aPTT 31 28 - 38 sec Comment: Interpretive Data Heparin therapeutic range: 66.0 - 100.0 seconds. Range based on correlation with therapeutic heparin activity range of 0.3 - 0.7 Units/mL. Current interpretive data was last revised on 2023. Blood 02/18/2025 9:00 PM CDT 02/18/2025 9:32 PM CDT Karin Rodriguez MD LAB BLOOD ORDERABLES Final R esult Performing Organization Address [facility] Co de Phone Number [facility] [address] [place] [address] * (ABNORMAL) Protime-INR (02/18/2025 9:00 PM CDT) PT 13.1(H) 9.7 - 13.0 sec INR 1.21(H) 0.90 - 1.20 [facility] Comment: Interpretive data Oral anticoagulant therapeutic ranges: Venous thromboembolism prophylaxis or treatment: 2.0-3.0 CARDIOLOGY Standard range: 2.0-3.0 High-intensity range: 2.5-3.5 Refer to indication-specific guidelines for appropriate target ranges for prosthetic heart valve replacement. Current interpretive data was last revised on 2019. Blood 02/18/2025 9:00 PM CDT 02/18/2025 9:32 PM CDT Karin Rodriguez MD LAB BLOOD ORDERABLES Final R esult Performing Organization Address [facility] Co de Phone Number [facility] [address] [place] [address] * Blood gas, arterial (02/18/2025 8:34 PM CDT) pH, Art 7.42 7.35 - 7.45 PCO2, Arterial 36 35 - 45 mmHg [facility] PO2, Arterial 86 83 - 108 mmHg [facility] HCO3 Art (Calculated) 23 20 - 30 mmol/L [facility] BE, art -1 mmol/L [facility] Comment: Interpretive Data No Reference Range Established Current Interpretive Data was last revised on 2017 O2 Sat Art (Calculated) 97 94 - 98 % [facility] Blood 02/18/2025 8:34 PM CDT 02/18/2025 8:39 PM CDT us Karin Rodriguez MD LAB BLOOD ORDERABLES Final R esult [facility] [address] [place] [address] * X-ray chest 1 view (02/18/2025 8:15 [...] PM CDT Narrative 02/27/2025 12:47 PM CDT [id number] [place] [address] Event MONITOR Patient Name: MAURICIO HEADLEY C [...] arrhythmias. Electronically Signed By: Jb Henning MD [facility] 02/27/2025 12:46:23 PM CDT Procedure Note Jb Henning MD - 02/27/2025 [facility] [address] [place] [address] Event MONITOR Patient Name: MAURICIO HEADLEY C [...] arrhythmias. Electronically Signed By: Jb Henning MD [facility] 02/27/2025 12:46:23 PM CDT us Bella MCGUIRE CV CARDIAC SERVICES PROCEDUR ES Final Result * POCT glucose (01/25/2025 7:47 AM CDT) Glucose, POC 116 70 - 199 mg/dL Comment: For Glucose values <35 mg/dl when Hematocrit is >60 mg/dl,the test may not accurately detect significant hypoglycemia,and testing in the Laboratory should be considered if clinically indicated. POC Performer [id number] [facility] Blood 01/25/2025 7:47 AM CDT 01/25/2025 7:47 AM CDT us Brayden Hopkins MD LAB POCT ORDERABLES - KATE CE Final Result [facility] [address] [place] [address] * eGFR (01/25/2025 1:44 AM CDT) [facility] eGFR 86 >=60 mL/min/1. 73 m2 Comment: [...] AM CDT 01/25/2025 2:35 AM CDT Desire Tapia Tonsor FUNERAL HOME LOCATION MANAGER LAB BLOOD ORDERABLES Fin al Result Performing Organization Address City/[facility]/ZIP Co de Phone Number [facility] [address] [place] [address] * (ABNORMAL) CBC without differential (01/25/2025 1:44 AM CDT) WBC 13.28(H) 3.80 - 9.90 K/cumm Hgb 10.1(L) 13.0 - 17.5 g/dL [facility] Hct 31.9(L) 38.9 - 50.3 % [facility] Plt 318 150 - 400 K/cumm [facility] MPV 12.0 9.1 - 12.3 fL [facility] RBC 3.44(L) 4.30 - 5.80 M/cumm [facility] MCV 92.7 81.3 - 96.4 fL [facility] MCH 29.4 27.1 - 33.3 pg [facility] MCHC 31.7(L) 32.3 - 35.7 g/dL [facility] RDW CV 17.4(H) 11.1 - 14.9 % [facility] RDW SD 57.3(H) 35.7 - 48.1 fL [facility] NRBC abs 0.00 0.00 - 0.01 K/cumm [facility] Blood 01/25/2025 1:44 AM CDT 01/25/2025 2:35 AM CDT Desire Harrellor FUNERAL HOME LOCATION MANAGER LAB BLOOD ORDERABLES Fin al Result [facility] [address] [place] [address] * Phosphorus (01/25/2025 1:44 AM CDT) Phosphorus, pl 4.2 2.3 - 4.5 mg/dL Blood 01/25/2025 1:44 AM CDT 01/25/2025 2:35 AM CDT Desire Ghotra FUNERAL HOME LOCATION MANAGER LAB BLOOD ORDERABLES Dean francy Result - Final Performing Organization Address City/[facility]/ZIP Co de Phone Number [facility] [address] [employer] [place] [address] * (ABNORMAL) Basic metabolic panel (01/25/2025 1:44 AM CDT) [facility] Sodium 142 135 - 145 mmol/L Potassium, pl 3.7 3.3 - 4.9 mmol/L [facility] Chloride 106 97 - 110 mmol/L [facility] CO2 24 22 - 32 mmol/L [facility] Anion gap 12 2 - 15 mmol/L [facility] BUN 16 6 - 25 mg/dL [facility] Creatinine 0.95 0.80 - 1.30 mg/dL [facility] Glucose 123 70 - 199 mg/dL [facility] Comment: Interpretive Data Fasting glucose >/= 126 [...] 2022. Calcium 7.9(L) 8.5 - 10.3 mg/dL [facility] Blood 01/25/2025 1:44 AM CDT 01/25/2025 2:35 AM CDT Desire Ghotra FUNERAL HOME LOCATION MANAGER LAB BLOOD ORDERABLES Dean francy Result - Final Performing Organization Address [facility]/ZIP Co de Phone Number [facility] [address] [place] [address] * POCT glucose (01/24/2025 8:21 PM CDT) Glucose, POC 143 70 - 199 mg/dL Comment: For Glucose values <35 mg/dl when Hematocrit is >60 mg/dl,the test may not accurately detect significant hypoglycemia,and testing in the Laboratory should be considered if clinically indicated. POC Performer [id number] [facility] Blood 01/24/2025 8:21 PM CDT 01/24/2025 8:21 PM CDT Brayden Hopkins MD LAB POCT ORDERABLES - KATE CE Final Result Performing Organization Address [facility] Co de Phone Number [facility] [address] [facility] [employer] [place], [place] [id number] * POCT glucose (01/24/2025 4:53 PM CDT) Glucose, POC 101 70 - 199 mg/dL Comment: For Glucose values <35 mg/dl when Hematocrit is >60 mg/dl,the test may not accurately detect significant hypoglycemia,and testing in the Laboratory should be considered if clinically indicated. POC Performer [phone] [facility] Blood 01/24/2025 4:53 PM CDT 01/24/2025 4:53 PM CDT Brayden Hopkins MD LAB POCT ORDERABLES - KATE CE Final Result Performing Organization Address [facility] Co de Phone Number [facility] [address] [facility] [place] [address] * (ABNORMAL) POCT glucose (01/24/2025 11:54 AM CDT) Glucose, POC 207(H) 70 - 199 mg/dL Comment: For Glucose values <35 mg/dl when Hematocrit is >60 mg/dl,the test may not accurately detect significant hypoglycemia,and testing in the Laboratory should be considered if clinically indicated. POC Performer [id number] [facility] Blood 01/24/2025 11:5 4 AM CDT 01/24/2025 11:54 AM CDT Brayden Hopkins MD LAB POCT ORDERABLES - KATE CE Final Result Performing Organization Address City/[facility] Co de Phone Number [facility] [address] Department [place] [address] * POCT glucose (01/24/2025 8:44 AM CDT) [facility] Glucose, POC 156 70 - 199 mg/dL Comment: For Glucose values <35 mg/dl when Hematocrit is >60 mg/dl,the test may not accurately detect significant hypoglycemia,and testing in the Laboratory should be considered if clinically indicated. POC Performer [id number] [facility] Blood 01/24/2025 8:44 AM CDT 01/24/2025 8:44 AM CDT Brayden Hopkins MD LAB POCT ORDERABLES - KATE CE Final Result Performing Organization Address [facility] Co de Phone Number [facility] [address] Department [place] [address] * eGFR (01/24/2025 1:37 AM CDT) [facility] eGFR >90 >=60 mL/min/1. 73 m2 Comment: [...] 01/24/2025 2:34 AM CDT Desire Tapia Tonsor FUNERAL HOME LOCATION MANAGER LAB BLOOD ORDERABLES Fin al Result Performing Organization Address City/[facility] Co de Phone Number [facility] [address] [facility] [place] [address] * (ABNORMAL) CBC without differential (01/24/2025 1:37 AM CDT) WBC 13.10(H) 3.80 - 9.90 K/cumm Hgb 9.5(L) 13.0 - 17.5 g/dL [facility] Hct 30.2(L) 38.9 - 50.3 % [facility] Plt 311 150 - 400 K/cumm [facility] MPV 11.7 9.1 - 12.3 fL [facility] RBC 3.22(L) 4.30 - 5.80 M/cumm [facility] MCV 93.8 81.3 - 96.4 fL [facility] MCH 29.5 27.1 - 33.3 pg [facility] MCHC 31.5(L) 32.3 - 35.7 g/dL [facility] RDW CV 17.3(H) 11.1 - 14.9 % [facility] RDW SD 56.5(H) 35.7 - 48.1 fL [facility] NRBC abs 0.00 0.00 - 0.01 K/cumm [facility] Blood 01/24/2025 1:37 AM CDT 01/24/2025 2:35 AM CDT Desire Harrellor FUNERAL HOME LOCATION MANAGER LAB BLOOD ORDERABLES Fin al Result Performing Organization Address City/[facility]/ZIP Co de Phone Number [facility] [address] [facility] [place] [address] * Phosphorus (01/24/2025 1:37 AM CDT) Pathologist [facility] Phosphorus, pl 3.4 2.3 - 4.5 mg/dL Blood 01/24/2025 1:37 AM CDT 01/24/2025 2:34 AM CDT Desire Harrellor FUNERAL HOME LOCATION MANAGER LAB BLOOD ORDERABLES Fin al Result Performing Organization Address City/[facility] Co de Phone Number [facility] [address] Department [place] [address] * (ABNORMAL) Basic metabolic panel (01/24/2025 1:37 AM CDT) [facility] Sodium 139 135 - 145 mmol/L Potassium, pl 3.8 3.3 - 4.9 mmol/L [facility] Chloride 104 97 - 110 mmol/L [facility] CO2 23 22 - 32 mmol/L [facility] Anion gap 12 2 - 15 mmol/L [facility] BUN 15 6 - 25 mg/dL [facility] Creatinine 0.80 0.80 - 1.30 mg/dL [facility] Glucose 218(H) 70 - 199 mg/dL [facility] Comment: Interpretive Data Fasting glucose >/= 126 [...] 2022. Calcium 7.7(L) 8.5 - 10.3 mg/dL [facility] Blood 01/24/2025 1:37 AM CDT 01/24/2025 2:34 AM CDT Desire Ghotra FUNERAL HOME LOCATION MANAGER LAB BLOOD ORDERABLES Fin al Result Performing Organization Address City/[facility] Co de Phone Number [facility] [address] [employer] [place], [place] [id number] * (ABNORMAL) POCT glucose (01/23/2025 8:13 PM CDT) Glucose, POC 261(H) 70 - 199 mg/dL Comment: For Glucose values <35 mg/dl when Hematocrit is >60 mg/dl,the test may not accurately detect significant hypoglycemia,and testing in the Laboratory should be considered if clinically indicated. POC Performer [id number] [facility] Blood 01/23/2025 8:13 PM CDT 01/23/2025 8:13 PM CDT Brayden Hopkins MD LAB POCT ORDERABLES - KATE CE Final Result Performing Organization Address [facility] de Phone Number [facility] [address] [facility] [place] [address] * POCT glucose (01/23/2025 5:33 PM CDT) Glucose, POC 144 70 - 199 mg/dL Comment: For Glucose values <35 mg/dl when Hematocrit is >60 mg/dl,the test may not accurately detect significant hypoglycemia,and testing in the Laboratory should be considered if clinically indicated. POC Performer [id number] [facility] Blood 01/23/2025 5:33 PM CDT 01/23/2025 5:33 PM CDT us Brayden Hopkins MD LAB POCT ORDERABLES - KATE CE Final Result Performing Organization Address [facility] Co de Phone Number [facility] [address] [facility] [employer] [place], [place] [id number] * (ABNORMAL) POCT glucose (01/23/2025 12:25 PM CDT) Glucose, POC 235(H) 70 - 199 mg/dL Comment: For Glucose values <35 mg/dl when Hematocrit is >60 mg/dl,the test may not accurately detect significant hypoglycemia,and testing in the Laboratory should be considered if clinically indicated. POC Performer [id number] [facility] Blood 01/23/2025 12:2 5 PM CDT 01/23/2025 12:25 PM CDT Brayden Hopkins MD LAB POCT ORDERABLES - KATE CE Final Result Performing Organization Address [facility] Co de Phone Number [facility] [address] [facility] [place] [address] * NT-Pro BNP - Add on lab test (01/23/2025 10:29 AM CDT) Acceptable Yes Blood 01/23/2025 10:2 9 AM CDT 01/23/2025 10:29 AM CDT Narrative [facility] - 01/23/2025 10:29 AM CDT Name of Test->NT-Pro BNP Balbina Mac NP LAB BLOOD ORDERABLES Fi nal Result Performing Organization Address [facility] Co de Phone Number [facility] [address] [facility] [place], [place] [id number] * POCT glucose (01/23/2025 7:52 AM CDT) Glucose, POC 164 70 - 199 mg/dL Comment: For Glucose values <35 mg/dl when Hematocrit is >60 mg/dl,the test may not accurately detect significant hypoglycemia,and testing in the Laboratory should be considered if clinically indicated. POC Performer [id number] [facility] Blood 01/23/2025 7:52 AM CDT 01/23/2025 7:52 AM CDT Brayden Hopkins MD LAB POCT ORDERABLES - KATE CE Final Result Performing Organization Address [facility] Co de Phone Number [facility] [address] [facility] [employer] [place], [place] [phone] * eGFR (01/23/2025 12:46 AM CDT) eGFR [...] CDT 01/23/2025 12:58 AM CDT Desire Ghotra FUNERAL HOME LOCATION MANAGER LAB BLOOD ORDERABLES Fin al Result [facility] [address] [place] [address] * (ABNORMAL) Pro B-type natriuretic peptide (01/23/2025 [...] Hopkins MD LAB BLOOD ORDERABLES Final Result [facility] [address] [place] [address] * (ABNORMAL) CBC without differential (01/23/2025 12:46 AM CDT) WBC 14.01(H) 3.80 - 9.90 K/cumm Hgb 9.7(L) 13.0 - 17.5 g/dL [facility] Hct 30.6(L) 38.9 - 50.3 % [facility] Plt 299 150 - 400 K/cumm [facility] MPV 10.8 9.1 - 12.3 fL [facility] RBC 3.33(L) 4.30 - 5.80 M/cumm [facility] MCV 91.9 81.3 - 96.4 fL [facility] MCH 29.1 27.1 - 33.3 pg [facility] MCHC 31.7(L) 32.3 - 35.7 g/dL [facility] RDW CV 17.6(H) 11.1 - 14.9 % [facility] RDW SD 53.6(H) 35.7 - 48.1 fL [facility] NRBC abs 0.00 0.00 - 0.01 K/cumm [facility] Blood 01/23/2025 12:4 6 AM CDT 01/23/2025 12:58 AM CDT Desire Harrellor FUNERAL HOME LOCATION MANAGER LAB BLOOD ORDERABLES Fin al Result [facility] [address] [employer] [place], [place] [id number] * Phosphorus (01/23/2025 12:46 AM CDT) [facility] Phosphorus, pl 2.9 2.3 - 4.5 mg/dL Blood 01/23/2025 12:4 6 AM CDT 01/23/2025 12:58 AM CDT Desire Harrellor FUNERAL HOME LOCATION MANAGER LAB BLOOD ORDERABLES Fin al Result Performing Organization Address City/[facility]/ZIP Co de Phone Number [facility] [address] [place] [address] * (ABNORMAL) Basic metabolic panel (01/23/2025 12:46 AM CDT) [facility] Sodium 139 135 - 145 mmol/L Potassium, pl 3.7 3.3 - 4.9 mmol/L [facility] Chloride 105 97 - 110 mmol/L [facility] CO2 23 22 - 32 mmol/L [facility] Anion gap 11 2 - 15 mmol/L [facility] BUN 14 6 - 25 mg/dL [facility] Creatinine 0.79(L) 0.80 - 1.30 mg/dL [facility] Glucose 178 70 - 199 mg/dL [facility] Comment: Interpretive Data Fasting glucose >/= 126 [...] 2022. Calcium 7.4(L) 8.5 - 10.3 mg/dL [facility] Blood 01/23/2025 12:4 6 AM CDT 01/23/2025 12:58 AM CDT Desire Ghotra NP LAB BLOOD ORDERABLES Fin al Result Performing Organization Address [facility]/ZIP Co de Phone Number [facility] [address] [employer] [place], [place] [id number] * POCT glucose (01/22/2025 8:42 PM CDT) Glucose, POC 188 70 - 199 mg/dL Comment: For Glucose values <35 mg/dl when Hematocrit is >60 mg/dl,the test may not accurately detect significant hypoglycemia,and testing in the Laboratory should be considered if clinically indicated. POC Performer [id number] [facility] Blood 01/22/2025 8:42 PM CDT 01/22/2025 8:42 PM CDT Brayden Hopkins MD LAB POCT ORDERABLES - KATE CE Final Result Performing Organization Address City/[facility]/ZIP Co de Phone Number [facility] [address] [facility] [place], [place] [phone] * POCT glucose (01/22/2025 5:30 PM CDT) Glucose, POC 138 70 - 199 mg/dL Comment: For Glucose values <35 mg/dl when Hematocrit is >60 mg/dl,the test may not accurately detect significant hypoglycemia,and testing in the Laboratory should be considered if clinically indicated. POC Performer [id number] [facility] Blood 01/22/2025 5:30 PM CDT 01/22/2025 5:30 PM CDT Brayden Hopkins MD LAB POCT ORDERABLES - KATE CE Final Result Performing Organization Address [facility] de Phone Number [facility] [address] [facility] [place] [address] * POCT glucose (01/22/2025 12:20 PM CDT) Glucose, POC 153 70 - 199 mg/dL Comment: For Glucose values <35 mg/dl when Hematocrit is >60 mg/dl,the test may not accurately detect significant hypoglycemia,and testing in the Laboratory should be considered if clinically indicated. POC Performer [id number] [facility] Blood 01/22/2025 12:2 0 PM CDT 01/22/2025 12:20 PM CDT Brayden Hopkins MD LAB POCT ORDERABLES - KATE CE Final Result Performing Organization Address [facility] de Phone Number [facility] [address] [facility] [place] [address] * POCT glucose (01/22/2025 8:15 AM CDT) Glucose, POC 184 70 - 199 mg/dL Comment: For Glucose values <35 mg/dl when Hematocrit is >60 mg/dl,the test may not accurately detect significant hypoglycemia,and testing in the Laboratory should be considered if clinically indicated. POC Performer [id number] [facility] Blood 01/22/2025 8:15 AM CDT 01/22/2025 8:15 AM CDT Brayden Hopkins MD LAB POCT ORDERABLES - KATE CE Final Result Performing Organization Address [facility]/ZIP Co de Phone Number [facility] [address] [place] [address] * eGFR (01/22/2025 12:34 AM CDT) Pathologist [facility] eGFR >90 >=60 mL/min/1. 73 m2 Comment: [...] 4 AM CDT 01/22/2025 12:47 AM CDT Dseire Ghotra NP LAB BLOOD ORDERABLES Fin al Result Performing Organization Address [facility] Co de Phone Number [facility] [address] [place] [address] * (ABNORMAL) CBC without differential (01/22/2025 12:34 AM CDT) Pathologist [facility] WBC 15.34(H) 3.80 - 9.90 K/cumm Hgb 9.3(L) 13.0 - 17.5 g/dL [facility] Hct 29.4(L) 38.9 - 50.3 % [facility] Plt 295 150 - 400 K/cumm [facility] MPV 11.3 9.1 - 12.3 fL [facility] RBC 3.22(L) 4.30 - 5.80 M/cumm [facility] MCV 91.3 81.3 - 96.4 fL [facility] MCH 28.9 27.1 - 33.3 pg [facility] MCHC 31.6(L) 32.3 - 35.7 g/dL [facility] RDW CV 17.2(H) 11.1 - 14.9 % [facility] RDW SD 53.2(H) 35.7 - 48.1 fL [facility] NRBC abs 0.06(H) 0.00 - 0.01 K/cumm [facility] Blood 01/22/2025 12:3 4 AM CDT 01/22/2025 12:48 AM CDT Desire Tapia Tonsor FUNERAL HOME LOCATION MANAGER LAB BLOOD ORDERABLES Fin al Result Performing Organization Address [facility] Co de Phone Number [facility] [address] [place] [address] * Phosphorus (01/22/2025 12:34 AM CDT) Phosphorus, pl 2.9 2.3 - 4.5 mg/dL Blood 01/22/2025 12:3 4 AM CDT 01/22/2025 12:47 AM CDT Desire Harrellor FUNERAL HOME LOCATION MANAGER LAB BLOOD ORDERABLES Fin al Result [facility] [address] [place] [address] * Magnesium (01/22/2025 12:34 AM CDT) Magnesium 1.9 1.4 - 2.5 mg/dL Blood 01/22/2025 12:3 4 AM CDT 01/22/2025 12:47 AM CDT us Desire Tapia Tonsor FUNERAL HOME LOCATION MANAGER LAB BLOOD ORDERABLES Fin al Result Performing Organization Address City/[facility]/ZIP Co de Phone Number [facility] [address] [place] [address] * (ABNORMAL) Basic metabolic panel (01/22/2025 12:34 AM CDT) Pathologist [facility] Sodium 138 135 - 145 mmol/L Potassium, pl 4.1 3.3 - 4.9 mmol/L [facility] Chloride 105 97 - 110 mmol/L [facility] CO2 22 22 - 32 mmol/L [facility] Anion gap 11 2 - 15 mmol/L [facility] BUN 16 6 - 25 mg/dL [facility] Creatinine 0.73(L) 0.80 - 1.30 mg/dL [facility] Glucose 188 70 - 199 mg/dL [facility] Comment: Interpretive Data Fasting glucose >/= 126 [...] 2022. Calcium 7.5(L) 8.5 - 10.3 mg/dL [facility] Blood 01/22/2025 12:3 4 AM CDT 01/22/2025 12:47 AM CDT Desire Harrellor FUNERAL HOME LOCATION MANAGER LAB BLOOD ORDERABLES Fin al Result Performing Organization Address City/[facility]/ZIP Co de Phone Number [facility] [address] [place] [address] * POCT glucose (01/21/2025 8:45 PM CDT) Glucose, POC 177 70 - 199 mg/dL Comment: For Glucose values <35 mg/dl when Hematocrit is >60 mg/dl,the test may not accurately detect significant hypoglycemia,and testing in the Laboratory should be considered if clinically indicated. POC Performer [id number] [facility] Blood 01/21/2025 8:45 PM CDT 01/21/2025 8:45 PM CDT Brayden Hopkins MD LAB POCT ORDERABLES - KATE CE Final Result Performing Organization Address [facility] Co de Phone Number [facility] [address] [employer] [place], [place] [phone] * POCT glucose (01/21/2025 5:50 PM CDT) [facility] Glucose, POC 195 70 - 199 mg/dL Comment: For Glucose values <35 mg/dl when Hematocrit is >60 mg/dl,the test may not accurately detect significant hypoglycemia,and testing in the Laboratory should be considered if clinically indicated. POC Performer [id number] [facility] Blood 01/21/2025 5:50 PM CDT 01/21/2025 5:50 PM CDT Brayden Hopkins MD LAB POCT ORDERABLES - KATE CE Final Result Performing Organization Address [facility] de Phone Number [facility] [address] [place] [address] * ECG 12 lead (01/21/2025 1:08 PM CDT) 01/21/2025 1:08 PM CDT Narrative [facility] - 01/22/2025 8:50 AM CDT Vent Rate: 108 bpm RR Interval: 552 msec GA Interval: 158 msec QRS Duration: 157 msec QT Interval: 386 msec QTC Interval: 450 msec P-R-T Purcell: -14 - 56 - 193 degrees IMPRESSION: ELECTRONIC VENTRICULAR PACEMAKER ABNORMAL RHYTHM ECG Electronically Signed By: Hernan Coley MD [facility] Brayden Hopkins MD ECG ORDERABLES Final Resu lt Performing Organization Address City/[facility]/ZIP Co de Phone Number [facility] * POCT glucose (01/21/2025 12:27 PM CDT) Glucose, POC 133 70 - 199 mg/dL Comment: For Glucose values <35 mg/dl when Hematocrit is >60 mg/dl,the test may not accurately detect significant hypoglycemia,and testing in the Laboratory should be considered if clinically indicated. POC Performer [id number] [facility] Blood 01/21/2025 12:2 7 PM CDT 01/21/2025 12:27 PM CDT Brayden Hopkins MD LAB POCT ORDERABLES - KATE CE Final Result Performing Organization Address [facility] Co de Phone Number [facility] [address] [place] [address] * Critical Care (01/21/2025 6:52 AM CDT) Narrative Malcolm Valverde MD - 01/21/2025 6:52 AM CDT Malcolm Valverde MD 01/21/2025 4:58 PM Critical Care Performed by: Desire Ghotra NP Authorized by: Desire Ghotra NP CRITICAL CARE: Team: [facility] CT Shift: AM Level of Billing: Subsequent [...] plan with the patient's team and other medical/agriculture consultant staff. This time was in addition to and separate from care provided by other practitioners on this day of service. Desire Ghotra NP IN CLINIC/BEDSIDE ORDERA BLES Final Result * [...] pneumothorax. Electronically signed by: Sandeep Mar M.D. Kaelyn Gale FUNERAL HOME LOCATION MANAGER IMG XR PROCEDURES Final Re sult * [...] ORDERABLES Final Resu lt Performing Organization Address [facility]/ZIP Co de Phone Number [facility] [address] [place] [address] * (ABNORMAL) CBC without differential (01/21/2025 12:06 AM CDT) Pathologist [facility] WBC 17.16(H) 3.80 - 9.90 K/cumm Hgb 9.4(L) 13.0 - 17.5 g/dL [facility] Hct 29.3(L) 38.9 - 50.3 % [facility] Plt 274 150 - 400 K/cumm [facility] MPV 11.2 9.1 - 12.3 fL [facility] RBC 3.28(L) 4.30 - 5.80 M/cumm [facility] MCV 89.3 81.3 - 96.4 fL [facility] MCH 28.7 27.1 - 33.3 pg [facility] MCHC 32.1(L) 32.3 - 35.7 g/dL [facility] RDW CV 16.9(H) 11.1 - 14.9 % [facility] RDW SD 53.1(H) 35.7 - 48.1 fL [facility] NRBC abs 0.04(H) 0.00 - 0.01 K/cumm [facility] Blood 01/21/2025 12:0 6 AM CDT 01/21/2025 12:14 AM CDT Kaelyn Gale NP LAB BLOOD ORDERABLES Final Result [facility] [address] [place] [address] * Phosphorus (01/21/2025 12:06 AM CDT) Pathologist [facility] Phosphorus, pl 2.6 2.3 - 4.5 mg/dL Blood 01/21/2025 12:0 6 AM CDT 01/21/2025 12:14 AM CDT Desire Ann Tonsor FUNERAL HOME LOCATION MANAGER LAB BLOOD ORDERABLES Fin al Result Performing Organization Address City/[facility]/ZIP Co de Phone Number [facility] [address] [facility] [place] [address] * Magnesium (01/21/2025 12:06 AM CDT) [facility] Magnesium 2.0 1.4 - 2.5 mg/dL Blood 01/21/2025 12:0 6 AM CDT 01/21/2025 12:14 AM CDT [facility] FUNERAL HOME LOCATION MANAGER LAB BLOOD ORDERABLES Fin al Result Performing Organization Address [facility] de Phone Number [facility] [address] [facility] [place] [address] * (ABNORMAL) Basic metabolic panel (01/21/2025 12:06 AM CDT) Pathologist [facility] Sodium 140 135 - 145 mmol/L Potassium, pl 4.2 3.3 - 4.9 mmol/L [facility] Chloride 106 97 - 110 mmol/L [facility] CO2 21(L) 22 - 32 mmol/L [facility] Anion gap 13 2 - 15 mmol/L [facility] BUN 23 6 - 25 mg/dL [facility] Creatinine 0.87 0.80 - 1.30 mg/dL [facility] Glucose 280(H) 70 - 199 mg/dL [facility] Comment: Interpretive Data Fasting glucose >/= 126 [...] 2022. Calcium 7.5(L) 8.5 - 10.3 mg/dL [facility] Blood 01/21/2025 12:0 6 AM CDT 01/21/2025 12:14 AM CDT Desire Ghotra FUNERAL HOME LOCATION MANAGER LAB BLOOD ORDERABLES Fin al Result [facility] [address] Department [place] [address] * Critical Care (01/20/2025 10:26 PM CDT) Narrative Malcolm Valverde MD - 01/20/2025 10:26 PM CDT Malcolm Valverde MD 01/21/2025 8:55 AM Critical Care Performed by: Marco A Espinoza DNP Authorized by: Marco A Espinoza DNP CRITICAL CARE: Team: [facility] CT Shift: PM Level of Billing: Critical [...] plan with the ICU team and other medical/agriculture consultant staff, making frequent assessments and decisions [...] (ABNORMAL) POCT glucose (01/20/2025 8:23 PM CDT) Glucose, POC 203(H) 70 - 199 mg/dL Comment: For Glucose values <35 mg/dl when Hematocrit is >60 mg/dl,the test may not accurately detect significant hypoglycemia,and testing in the Laboratory should be considered if clinically indicated. POC Performer [id number] [facility] Blood 01/20/2025 8:23 PM CDT 01/20/2025 8:23 PM CDT Brayden Hopkins MD LAB POCT ORDERABLES - KATE CE Final Result Performing Organization Address [facility] Co de Phone Number [facility] [address] Department [employer] [place], [place] [id number] * POCT glucose (01/20/2025 5:30 PM CDT) [facility] Glucose, POC 122 70 - 199 mg/dL Comment: For Glucose values <35 mg/dl when Hematocrit is >60 mg/dl,the test may not accurately detect significant hypoglycemia,and testing in the Laboratory should be considered if clinically indicated. POC Performer [phone] [facility] Blood 01/20/2025 5:30 PM CDT 01/20/2025 5:30 PM CDT us Brayden Hopkins MD LAB POCT ORDERABLES - KATE CE Final Result Performing Organization Address [facility] Co de Phone Number [facility] [address] [place] [place] [address] * Lactate (01/20/2025 5:10 PM CDT) [facility] Lactate 1.5 0.7 - 2.0 mmol/L Blood 01/20/2025 5:10 PM CDT 01/20/2025 5:36 PM CDT Kaelyn Gale NP LAB BLOOD ORDERABLES Final Result Performing Organization Address [facility] Co de Phone Number [facility] [address] Department of Laboratories [place], [place] [id number] * (ABNORMAL) Differential, auto (01/20/2025 5:10 PM CDT) Neutrophil abs 15.49(H) 1.50 - 6.50 K/cumm Imm gran abs 1.01(H) 0.00 - 0.10 K/cumm [facility] Lymphocyte abs 3.83(H) 0.80 - 3.30 K/cumm [facility] Monocyte abs 1.74(H) 0.20 - 0.80 K/cumm [facility] Eosinophil abs 0.13 0.00 - 0.50 K/cumm [facility] Basophil abs 0.14(H) 0.00 - 0.10 K/cumm [facility] Neutrophil pct 69.4 % [facility] Comment: Interpretive Data Percent cell count reference ranges are not reported, since discordance with absolute values may lead to misinterpretation of CBC data. Current Interpretive Data was last revised on 2018. Imm gran pct 4.5 % [facility] Comment: Interpretive Data Percent cell count reference ranges are not reported, since discordance with absolute values may lead to misinterpretation of CBC data. Current Interpretive Data was last revised on 2018. Lymphocyte pct 17.1 % [facility] Comment: Interpretive Data Percent cell count reference ranges are not reported, since discordance with absolute values may lead to misinterpretation of CBC data. Current Interpretive Data was last revised on 2018. Monocyte pct 7.8 % [facility] Comment: Interpretive Data Percent cell count reference ranges are not reported, since discordance with absolute values may lead to misinterpretation of CBC data. Current Interpretive Data was last revised on 2018. Eosinophil pct 0.6 % [facility] Comment: Interpretive Data Percent cell count reference ranges are not reported, since discordance with absolute values may lead to misinterpretation of CBC data. Current Interpretive Data was last revised on 2018. Basophil pct 0.6 % [facility] Comment: Interpretive Data Percent cell count reference ranges are not reported, since discordance with absolute values may lead to misinterpretation of CBC data. Current Interpretive Data was last revised on 2018. Blood 01/20/2025 5:10 PM CDT 01/20/2025 5:49 PM CDT Kaelyn Gale NP LAB BLOOD ORDERABLES Final Result Performing Organization Address City/[facility]/ZIP Co de Phone Number [facility] [address] [place] [address] * (ABNORMAL) CBC with auto differential (01/20/2025 5:10 PM CDT) [facility] WBC 22.34(H) 3.80 - 9.90 K/cumm Hgb 10.3(L) 13.0 - 17.5 g/dL [facility] Hct 31.4(L) 38.9 - 50.3 % [facility] Plt 326 150 - 400 K/cumm [facility] MPV 10.9 9.1 - 12.3 fL [facility] RBC 3.54(L) 4.30 - 5.80 M/cumm [facility] MCV 88.7 81.3 - 96.4 fL [facility] MCH 29.1 27.1 - 33.3 pg [facility] MCHC 32.8 32.3 - 35.7 g/dL [facility] RDW CV 16.8(H) 11.1 - 14.9 % [facility] RDW SD 52.4(H) 35.7 - 48.1 fL [facility] NRBC abs 0.03(H) 0.00 - 0.01 K/cumm [facility] Blood 01/20/2025 5:10 PM CDT 01/20/2025 5:49 PM CDT Kaelyn Gale NP LAB BLOOD ORDERABLES Final Result [facility] [address] [place] [address] * Transfuse RBC (01/20/2025 3:02 PM CDT) Blood Kaelyn Gale NP BLOOD TRANSFUSION ORDERABL ES Final Result [facility] [address] [place] [address] * TRANSTHORACIC ECHO (TTE) LIMITED/FOLLOW UP WO DOPPLER/CF WO CONTRAST (01/20/2025 2:17 PM CDT) LV EF 20-25 % CONS SCIMAGE Anatomical Region Laterality Modality Ultrasound 01/20/2025 12:5 4 PM CDT Narrative 01/20/2025 6:06 PM CDT [facility] [address] [place] [address] LIMITED ECHOCARDIOGRAM Patient Name: MAURICIO HEADLEY C : 1955 (69y 11m) Gender: M Study Date: 01/20/2025 12:54:10 PM Ht(Inch): 68 Wt(Lb): 161 BSA: 1.87 Java Web Developer: Location: [address] Order Provider: KAELYN GALE BMI: 24.48 [...] Procedure Note Jasen Mclaughlin MD - 01/20/2025 [place] [id number] [address] LIMITED ECHOCARDIOGRAM Patient Name: MAURICIO HEADLEY C : 1955 (69y 11m) Gender: M Study Date: 01/20/2025 12:54:10 PM Ht(Inch): 68 Wt(Lb): 161 BSA: 1.87 Java Web Developer: Location: [address] Order Provider: KAELYN GALE BMI: 24.48 [...] esult * Potassium (01/20/2025 2:14 PM CDT) [facility] Potassium, pl 4.2 3.3 - 4.9 mmol/L Blood 01/20/2025 2:14 PM CDT 01/20/2025 2:45 PM CDT Kaelyn Gale NP LAB BLOOD ORDERABLES Final Result Performing Organization Address [facility]/ZIP Co de Phone Number [facility] [address] [place] [address] * Prepare RBC: 1 Units (01/20/2025 12:10 PM CDT) [facility] Product code [id number] Unit Number [id number] [facility] Product Blood Type BNEG [facility] Dispense Status PRESUMED TRANSFUSED [facility] Blood 01/20/2025 12:1 0 PM CDT Narrative [facility] - 01/21/2025 11:34 AM CDT Other indication->GIB/ hypovolemia Are special requirements needed? (All products are leukoreduced and CMV- safe)- >No Date required:-[id number] LRRBC # of [id number] Reasons:-Other (specify)} Kaelyn Gale NP BLOOD BANK PRODUCT ORDERAB LES Final Result Performing Organization Address [facility]/ZIP Co de Phone Number [facility] [address] [place] [address] * (ABNORMAL) Lactate (01/20/2025 11:25 AM CDT) [facility] Lactate 3.6(H) 0.7 - 2.0 mmol/L Blood 01/20/2025 11:2 5 AM CDT 01/20/2025 11:32 AM CDT Kaelyn Gale NP LAB BLOOD ORDERABLES Final Result [facility] [address] [place] [address] * (ABNORMAL) CBC without differential (01/20/2025 11:25 AM CDT) [facility] WBC 21.74(H) 3.80 - 9.90 K/cumm Hgb 9.1(L) 13.0 - 17.5 g/dL [facility] Hct 29.2(L) 38.9 - 50.3 % [facility] Plt 317 150 - 400 K/cumm [facility] MPV 11.1 9.1 - 12.3 fL [facility] RBC 3.20(L) 4.30 - 5.80 M/cumm [facility] MCV 91.3 81.3 - 96.4 fL [facility] MCH 28.4 27.1 - 33.3 pg [facility] MCHC 31.2(L) 32.3 - 35.7 g/dL [facility] RDW CV 17.4(H) 11.1 - 14.9 % [facility] RDW SD 56.9(H) 35.7 - 48.1 fL [facility] NRBC abs 0.02(H) 0.00 - 0.01 K/cumm [facility] Blood 01/20/2025 11:2 5 AM CDT 01/20/2025 11:33 AM CDT Kaelyn Gale NP LAB BLOOD ORDERABLES Final Result Performing Organization Address [facility] Co de Phone Number [facility] [address] [place] [address] * (ABNORMAL) POCT glucose (01/20/2025 11:20 AM CDT) Glucose, POC 227(H) 70 - 199 mg/dL Comment: For Glucose values <35 mg/dl when Hematocrit is >60 mg/dl,the test may not accurately detect significant hypoglycemia,and testing in the Laboratory should be considered if clinically indicated. POC Performer [id number] [facility] Blood 01/20/2025 11:2 0 AM CDT 01/20/2025 11:20 AM CDT us Brayden Hopkins MD LAB POCT ORDERABLES - KATE CE Final Result Performing Organization Address [facility] Co de Phone Number [facility] [address] [place] [address] * POCT glucose (01/20/2025 7:48 AM CDT) Glucose, POC 167 70 - 199 mg/dL Comment: For Glucose values <35 mg/dl when Hematocrit is >60 mg/dl,the test may not accurately detect significant hypoglycemia,and testing in the Laboratory should be considered if clinically indicated. POC Performer [id number] [facility] Blood 01/20/2025 7:48 AM CDT 01/20/2025 7:48 AM CDT Brayden Hopkins MD LAB POCT ORDERABLES - KATE CE Final Result Performing Organization Address [facility] Co de Phone Number [facility] [address] [place] [address] * Critical Care (01/20/2025 7:03 AM CDT) Narrative Malcolm Valverde MD - 01/20/2025 7:03 AM CDT Malcolm Valverde MD 01/21/2025 8:55 AM Critical Care Performed by: Kaelyn Gale NP Authorized by: Kaelyn Gale NP CRITICAL CARE: Team: [facility] CT Shift: AM Level of Billing: Subsequent [...] plan with the patient's team and other medical/agriculture consultant staff. This time was in addition to and separate from care provided by other practitioners on this day of service. us Kaelyn Gale NP IN CLINIC/BEDSIDE ORDERABL [...] signed by: Mau Roland M.D. Kaelyn Gale FUNERAL HOME LOCATION MANAGER IMG XR PROCEDURES Final Re sult * Lactate (01/20/2025 5:40 AM CDT) Pathologist [facility] Lactate 2.0 0.7 - 2.0 mmol/L Blood 01/20/2025 5:40 AM CDT 01/20/2025 5:50 AM CDT Elsa Doe NP LAB BLOOD ORDERABLES Madhavi de luna Result [facility] [address] [place] [address] * eGFR (01/20/2025 5:40 AM CDT) Pathologist [facility] eGFR >90 >=60 mL/min/1. 73 m2 Comment: [...] Hopkins MD LAB BLOOD ORDERABLES Final Result [facility] [address] [place] [address] * (ABNORMAL) CBC without differential (01/20/2025 5:40 AM CDT) WBC 21.31(H) 3.80 - 9.90 K/cumm Hgb 9.3(L) 13.0 - 17.5 g/dL [facility] Hct 29.6(L) 38.9 - 50.3 % [facility] Plt 220 150 - 400 K/cumm [facility] MPV 11.2 9.1 - 12.3 fL [facility] RBC 3.27(L) 4.30 - 5.80 M/cumm [facility] MCV 90.5 81.3 - 96.4 fL [facility] MCH 28.4 27.1 - 33.3 pg [facility] MCHC 31.4(L) 32.3 - 35.7 g/dL [facility] RDW CV 17.3(H) 11.1 - 14.9 % [facility] RDW SD 55.4(H) 35.7 - 48.1 fL [facility] NRBC abs 0.00 0.00 - 0.01 K/cumm [facility] Blood 01/20/2025 5:40 AM CDT 01/20/2025 5:55 AM CDT us Kaelyn Gale NP LAB BLOOD ORDERABLES Final Result Performing Organization Address City/[facility] Co de Phone Number [facility] [address] [facility] [place] [address] * Phosphorus (01/20/2025 5:40 AM CDT) [facility] Phosphorus, pl 3.0 2.3 - 4.5 mg/dL Blood 01/20/2025 5:40 AM CDT 01/20/2025 5:53 AM CDT us Desire Harrellor FUNERAL HOME LOCATION MANAGER LAB BLOOD ORDERABLES Fin al Result Performing Organization Address [facility] Co de Phone Number [facility] [address] [facility] [place] [address] * Magnesium (01/20/2025 5:40 AM CDT) [facility] Magnesium 2.0 1.4 - 2.5 mg/dL Blood 01/20/2025 5:40 AM CDT 01/20/2025 5:53 AM CDT Desire Harrellor FUNERAL HOME LOCATION MANAGER LAB BLOOD ORDERABLES Fin al Result Performing Organization Address [facility] de Phone Number [facility] [address] [place] [address] * (ABNORMAL) Basic metabolic panel (01/20/2025 5:40 AM CDT) [facility] Sodium 139 135 - 145 mmol/L Potassium, pl 5.3(H) 3.3 - 4.9 mmol/L [facility] Comment:Hemolyzed; potassium value may be falsely elevated by as much as 0.6 - 1.0 mmol/L. Suggest redraw and reanalysis Chloride 106 97 - 110 mmol/L [facility] CO2 22 22 - 32 mmol/L [facility] Anion gap 11 2 - 15 mmol/L [facility] BUN 35(H) 6 - 25 mg/dL [facility] Creatinine 0.68(L) 0.80 - 1.30 mg/dL [facility] Glucose 155 70 - 199 mg/dL [facility] Comment: Interpretive Data Fasting glucose >/= 126 [...] 2022. Calcium 7.8(L) 8.5 - 10.3 mg/dL [facility] Blood 01/20/2025 5:40 AM CDT 01/20/2025 5:41 AM CDT Brayden Hopkins MD LAB BLOOD ORDERABLES Final Result [facility] [address] Department [place] [address] * (ABNORMAL) CBC without differential (01/20/2025 12:04 AM CDT) WBC 22.37(H) 3.80 - 9.90 K/cumm Hgb 10.3(L) 13.0 - 17.5 g/dL [facility] Hct 32.7(L) 38.9 - 50.3 % [facility] Plt 325 150 - 400 K/cumm [facility] MPV 11.5 9.1 - 12.3 fL [facility] RBC 3.67(L) 4.30 - 5.80 M/cumm [facility] MCV 89.1 81.3 - 96.4 fL [facility] Comment:MCV delta due to garry arent blood transfusion. This result has been called to Young CURRY by [email or web address] on 01/20/2025 01:24:08. MCH 28.1 27.1 - 33.3 pg [facility] MCHC 31.5(L) 32.3 - 35.7 g/dL [facility] RDW CV 16.7(H) 11.1 - 14.9 % [facility] RDW SD 53.7(H) 35.7 - 48.1 fL [facility] NRBC abs 0.02(H) 0.00 - 0.01 K/cumm [facility] Blood 01/20/2025 12:0 4 AM CDT 01/20/2025 12:36 AM CDT Kaelyn Gale FUNERAL HOME LOCATION MANAGER LAB BLOOD ORDERABLES Final Result [facility] [address] [facility] [place] [address] * Potassium (01/20/2025 12:04 AM CDT) [facility] Potassium, pl 4.1 3.3 - 4.9 mmol/L Blood 01/20/2025 12:0 4 AM CDT 01/20/2025 12:36 AM CDT Elsa Doe FUNERAL HOME LOCATION MANAGER LAB BLOOD ORDERABLES Madhavi l Result Performing Organization Address City/[facility]/ZIP Co de Phone Number [facility] [address] [place] [address] * Magnesium (01/20/2025 12:04 AM CDT) [facility] Magnesium 1.9 1.4 - 2.5 mg/dL Blood 01/20/2025 12:0 4 AM CDT 01/20/2025 12:36 AM CDT Elsa Doe FUNERAL HOME LOCATION MANAGER LAB BLOOD ORDERABLES Madhavi l Result Performing Organization Address City/[facility]/ZIP Co de Phone Number [facility] [address] [place] [address] * POCT glucose (01/19/2025 8:02 PM CDT) Glucose, POC 142 70 - 199 mg/dL Comment: For Glucose values <35 mg/dl when Hematocrit is >60 mg/dl,the test may not accurately detect significant hypoglycemia,and testing in the Laboratory should be considered if clinically indicated. POC Performer [phone] [facility] Blood 01/19/2025 8:02 PM CDT 01/19/2025 8:02 PM CDT Brayden Hopkins MD LAB POCT ORDERABLES - KATE CE Final Result Performing Organization Address [facility]/ZIP Co de Phone Number [facility] [address] [place] [address] * Critical Care (01/19/2025 7:49 PM CDT) Narrative Malcolm Valverde MD - 01/19/2025 7:49 PM CDT Malcolm Valverde MD 01/20/2025 7:53 AM Critical Care Performed by: Elsa Doe NP Authorized by: Elsa oDe NP CRITICAL CARE: Team: [facility] CT Shift: PM Level of Billing: Subsequent [...] plan with the patient's team and other medical/agriculture consultant staff. This time was in addition to and separate from care provided by other practitioners on this day of service. I spent time documenting in the medical record, I spent time discussing the management of this critically ill patient with consultants and the medical staff and I spent time reviewing and interpreting data from bedside monitors, laboratory results, and imaging Elsa Doe NP IN CLINIC/BEDSIDE ORDERAB LES Final Result * Transfuse RBC (01/19/2025 5:51 PM CDT) Blood Result [facility] [place] BLOOD TRANSFUSION ORDERABLES Final Result Performing Organization Address City/[facility]/ZIP Co de Phone Number [facility] [address] [place] [address] * POCT glucose (01/19/2025 5:49 PM CDT) [facility] Glucose, POC 164 70 - 199 mg/dL Comment: For Glucose values <35 mg/dl when Hematocrit is >60 mg/dl,the test may not accurately detect significant hypoglycemia,and testing in the Laboratory should be considered if clinically indicated. POC Performer [id number] [facility] Blood 01/19/2025 5:49 PM CDT 01/19/2025 5:49 PM CDT us Brayden Hopkins MD LAB POCT ORDERABLES - KATE CE Final Result Performing Organization Address City/[facility]/ZIP Co de Phone Number [facility] [address] [place] [address] * (ABNORMAL) Lactate (01/19/2025 5:47 PM CDT) [facility] Lactate 2.1(H) 0.7 - 2.0 mmol/L Blood 01/19/2025 5:47 PM CDT 01/19/2025 5:52 PM CDT Narrative [facility] - 01/19/2025 6:33 PM CDT Send with post transfusion CBC us Kaelyn Gale NP LAB BLOOD ORDERABLES Final Result [facility] [address] [place] [address] * (ABNORMAL) CBC without differential (01/19/2025 5:47 PM CDT) [facility] WBC 23.48(H) 3.80 - 9.90 K/cumm Hgb 11.3(L) 13.0 - 17.5 g/dL [facility] Hct 38.4(L) 38.9 - 50.3 % [facility] Plt 323 150 - 400 K/cumm [facility] MPV 10.8 9.1 - 12.3 fL [facility] RBC 3.92(L) 4.30 - 5.80 M/cumm [facility] MCV 98.0(H) 81.3 - 96.4 fL [facility] MCH 28.8 27.1 - 33.3 pg [facility] MCHC 29.4(L) 32.3 - 35.7 g/dL [facility] RDW CV 16.4(H) 11.1 - 14.9 % [facility] RDW SD 57.1(H) 35.7 - 48.1 fL [facility] NRBC abs 0.02(H) 0.00 - 0.01 K/cumm [facility] Blood 01/19/2025 5:47 PM CDT 01/19/2025 5:53 PM CDT Kaelyn Gale NP LAB BLOOD ORDERABLES Final Result Performing Organization Address City/State/[facility] Co de Phone Number [facility] [address] [place] [address] * Critical Care (01/19/2025 4:55 PM CDT) Narrative Malcolm Valverde MD - 01/19/2025 4:55 PM CDT Malcolm Valverde MD 01/20/2025 7:53 AM Critical Care Performed by: Kaelyn Gale NP Authorized by: Kaelyn Gale NP CRITICAL CARE: Team: [facility] CT Shift: AM Level of Billing: Initial [...] plan with the patient's team and other medical/agriculture consultant staff. This time was in addition [...] 01/19/2025 2:34 PM Admit Type: Inpatient Room: [facility] Date of : 1955 Instrument Name: [id number] [...] physician, the nurse, the anesthesiologist and the maintenance parts technician in the pre-procedure area in the [...] 1 Units (01/19/2025 2:07 PM CDT) Pathologist [facility] Product code [id number] Unit Number [id number] [facility] Product Blood Type BPOS [facility] Dispense Status PRESUMED TRANSFUSED [facility] Blood 01/19/2025 2:07 PM CDT Narrative [facility] - 01/21/2025 11:34 AM CDT Are special requirements needed? (All products are leukoreduced and CMV- safe)- >No Date required:-[id number] LRRBC # of [id number] Reasons:-Hemorrhagic shock/Life-threatening bleeding} Bella MCGUIRE BLOOD BANK PRODUCT ORDERABLE S Final Result [facility] [address] [place] [address] * (ABNORMAL) Hemoglobin and hematocrit (01/19/2025 12:37 PM CDT) Hgb 9.7(L) 13.0 - 17.5 g/dL Hct 30.4(L) 38.9 - 50.3 % [facility] Blood 01/19/2025 12:3 7 PM CDT 01/19/2025 1:02 PM CDT Bella MCGUIRE LAB BLOOD ORDERABLES Final R esult [facility] [address] [place] [address] * XR Chest 1 View (01/19/2025 12:22 [...] be considered if clinically indicated. POC Performer [id number] [facility] Blood 01/19/2025 12:1 1 PM CDT 01/19/2025 12:11 PM CDT Brayden Hopkins MD LAB POCT ORDERABLES - KATE CE Final Result Performing Organization Address City/[facility]/ZIP Co de Phone Number [facility] [address] [place] [address] * NT-Pro BNP - Add on lab test (01/19/2025 11:45 AM CDT) Acceptable Yes Blood 01/19/2025 11:4 5 AM CDT 01/19/2025 11:45 AM CDT Narrative [facility] - 01/19/2025 11:46 AM CDT Name of Test->NT-Pro BNP Balbina Mac NP LAB BLOOD ORDERABLES Fi nal Result Performing Organization Address [facility] Co de Phone Number [facility] [address] [place] [address] * Blood culture Blood (01/19/2025 10:41 AM CDT) Report Final Report: No growth Blood 01/19/2025 10:4 1 AM CDT 01/19/2025 11:35 AM CDT Narrative [facility] - 01/24/2025 1:01 PM CDT Collection->Peripheral Interpretive [...] organism identification may be performed using the [employer] Blood Culture Identification panel. This assay detects microbial DNA in a blood culture broth. This assay has been cleared by the [place] Food and Drug Administration and its performance characteristics have been verified by the [facility]. Interpretive data was last revised on November 09, 2022. Eric Neal MD LAB MICROBIOLOGY - GENERAL ORDE RABLES Final Result [facility] [address] Department of [employer] [place], [place] [id number] * Type and screen (01/19/2025 8:52 AM CDT) ABO Rh B Positive Esme, indirect Negative [facility] Blood 01/19/2025 8:52 AM CDT 01/19/2025 8:56 AM CDT Narrative [facility] - 01/19/2025 9:56 AM CDT Has the patient had Daratumumab or Isatuximab in the past 6 months?->Unknown Bella MCGUIRE LAB BLOOD BANK TEST ORDERABL ES Final Result Performing Organization Address [facility]/ZIP Co de Phone Number [facility] [address] Department of [employer] [place], [place] [id number] * C. difficile testing Stool (01/19/2025 8:11 AM CDT) Pathologist [facility] GDH Result Negative Negative Toxin Result Negative Negative [facility] C. diff result Negative, free toxin Negative, free toxin [facility] C. diff interp Negative for toxigenic Clostridioides (Clostridium) difficile. Analysis was performed using a glutamate dehydrogenase antigen detection assay combined with a C. difficile toxin detection assay. [facility] Stool 01/19/2025 8:11 AM CDT 01/19/2025 3:24 PM CDT Bella MCGUIRE LAB MICROBIOLOGY - GENERAL O RDERABLES Final Result Performing Organization Address City/[facility]/ZIP Co de Phone Number [facility] [address] Department of [employer] [place], [place] [phone] * (ABNORMAL) Lactate (01/19/2025 8:11 AM CDT) Pathologist [facility] Lactate 4.1(C) 0.7 - 2.0 mmol/L Comment:Critical result call ed to and read back by Yulisa CURRY on 01/19/2025 [id number] to [id number] Blood 01/19/2025 8:11 AM CDT 01/19/2025 8:34 AM CDT Bella MCGUIRE LAB BLOOD ORDERABLES Final R esult Performing Organization Address City/[facility]/ZIP Co de Phone Number [facility] [address] Department [employer] [place], [place] [phone] * eGFR (01/19/2025 8:11 AM CDT) eGFR [...] MCGUIRE LAB BLOOD ORDERABLES Final R esult [facility] [address] [place] [address] * (ABNORMAL) Pro B-type natriuretic peptide (01/19/2025 [...] MD LAB BLOOD ORDERABLES Final Result [facility] [address] [place] [address] * (ABNORMAL) Occult blood gastric (01/19/2025 8:11 AM CDT) Occult blood, gastric Positive(A ) Negative Gastric 01/19/2025 8:11 AM CDT 01/19/2025 8:50 AM CDT [facility]ative [facility] - 01/19/2025 8:54 AM CDT Stool Fluid Detail:->Gastric Bella MCGUIRE LAB BODY FLUIDS AND STOOLS O RDERABLES Final Result Performing Organization Address [facility] Co de Phone Number [facility] [address] [facility] [place] [address] * aPTT (01/19/2025 8:11 AM CDT) aPTT [...] ORDERABLES Final R esult Performing Organization Address [facility] Co de Phone Number [facility] [address] [facility] [place] [address] * (ABNORMAL) Protime-INR (01/19/2025 8:11 AM CDT) PT 14.6(H) 9.7 - 13.0 sec INR 1.34(H) 0.90 - 1.20 [facility] Comment: Interpretive data Oral anticoagulant therapeutic ranges: Venous thromboembolism prophylaxis or treatment: 2.0-3.0 CARDIOLOGY Standard range: 2.0-3.0 High-intensity range: 2.5-3.5 Refer to indication-specific guidelines for appropriate target ranges for prosthetic heart valve replacement. Current interpretive data was last revised on 2019. Blood 01/19/2025 8:11 AM CDT 01/19/2025 8:41 AM CDT Bella MCGUIRE LAB BLOOD ORDERABLES Final R esult [facility] [address] [facility] [place] [address] * Lactate dehydrogenase (LD) (01/19/2025 8:11 AM CDT) Lactate dehydrogenase (LDH) 177 100 - 250 Units/L Blood 01/19/2025 8:11 AM CDT 01/19/2025 8:41 AM CDT Bella MCGUIRE LAB BLOOD ORDERABLES Final R esult Performing Organization Address [facility] Co de Phone Number [facility] [address] [place] [address] * (ABNORMAL) Blood gas, arterial (01/19/2025 8:11 AM CDT) pH, Art 7.43 7.35 - 7.45 PCO2, Arterial 30(L) 35 - 45 mmHg [facility] PO2, Arterial 162(H) 83 - 108 mmHg [facility] HCO3 Art (Calculated) 20 20 - 30 mmol/L [facility] BE, art -3 mmol/L [facility] Comment: Interpretive Data No Reference Range Established Current Interpretive Data was last revised on 2017 O2 Sat Art (Calculated) 100(H) 94 - 98 % [facility] Blood 01/19/2025 8:11 AM CDT 01/19/2025 8:34 AM CDT Bella MCGUIRE LAB BLOOD ORDERABLES Final R esult Performing Organization Address City/[facility]/ZIP Co de Phone Number [facility] [address] Department [employer] [place], [place] [phone] * (ABNORMAL) Comprehensive metabolic panel (01/19/2025 8:11 AM CDT) Sodium 138 135 - 145 mmol/L Potassium, pl 4.9 3.3 - 4.9 mmol/L [facility] Chloride 105 97 - 110 mmol/L [facility] CO2 18(L) 22 - 32 mmol/L [facility] Anion gap 15 2 - 15 mmol/L [facility] BUN 53(H) 6 - 25 mg/dL [facility] Creatinine 0.98 0.80 - 1.30 mg/dL [facility] Glucose 300(H) 70 - 199 mg/dL [facility] Comment: Interpretive Data Fasting glucose >/= 126 [...] 2022. Calcium 8.0(L) 8.5 - 10.3 mg/dL [facility] Bilirubin, total <0.2 0.1 - 1.2 mg/dL [facility] Protein, pl 5.4(L) 6.5 - 8.5 g/dL [facility] Albumin 2.5(L) 3.5 - 5.0 g/dL [facility] Alk phos 87 40 - 130 Units/L [facility] ALT 37 7 - 55 Units/L [facility] AST 22 10 - 50 Units/L [facility] Blood 01/19/2025 8:11 AM CDT 01/19/2025 8:41 AM CDT us Bella MCGUIRE LAB BLOOD ORDERABLES Final R esult [facility] [address] [place] [address] * (ABNORMAL) Hemoglobin and hematocrit (01/19/2025 8:04 AM CDT) Hgb 11.7(L) 13.0 - 17.5 g/dL Hct 37.5(L) 38.9 - 50.3 % [facility] Blood 01/19/2025 8:04 AM CDT 01/19/2025 8:04 AM CDT us Bella MCGUIRE LAB BLOOD ORDERABLES Final R esult Performing Organization Address City/[facility]/ZIP Co de Phone Number [facility] [address] Department [employer] [place], [place] [phone] * (ABNORMAL) POCT glucose (01/19/2025 7:48 AM CDT) [facility] Glucose, POC 240(H) 70 - 199 mg/dL Comment: For Glucose values <35 mg/dl when Hematocrit is >60 mg/dl,the test may not accurately detect significant hypoglycemia,and testing in the Laboratory should be considered if clinically indicated. POC Performer [phone] [facility] Blood 01/19/2025 7:48 AM CDT 01/19/2025 7:48 AM CDT us Brayden Hopkins MD LAB POCT ORDERABLES - KATE CE Final Result Performing Organization Address [facility] Co de Phone Number [facility] [address] Department [employer] [place], [place] [phone] * (ABNORMAL) CBC with auto differential (01/19/2025 4:54 AM CDT) [facility] WBC 24.23(H) 3.80 - 9.90 K/cumm Hgb 11.3(L) 13.0 - 17.5 g/dL [facility] Hct 37.0(L) 38.9 - 50.3 % [facility] Plt 462(H) 150 - 400 K/cumm [facility] MPV 11.2 9.1 - 12.3 fL [facility] RBC 3.83(L) 4.30 - 5.80 M/cumm [facility] MCV 96.6(H) 81.3 - 96.4 fL [facility] MCH 29.5 27.1 - 33.3 pg [facility] MCHC 30.5(L) 32.3 - 35.7 g/dL [facility] RDW CV 14.0 11.1 - 14.9 % [facility] RDW SD 49.1(H) 35.7 - 48.1 fL [facility] NRBC abs 0.00 0.00 - 0.01 K/cumm [facility] Morphologic Screen Results confirmed by manual morphology review. [facility] Blood 01/19/2025 4:54 AM CDT 01/19/2025 5:13 AM CDT us Tucker MCGUIRE LAB BLOOD ORDERABLES Final Result [facility] [address] [place] [address] * (ABNORMAL) Manual Differential (01/19/2025 4:54 AM CDT) Differential Manual Cells Counted 118 [facility] Neutrophil abs 20.33(H) 1.50 - 6.50 K/cumm [facility] Lymphocyte abs 1.65 0.80 - 3.30 K/cumm [facility] Monocyte abs 2.06(H) 0.20 - 0.80 K/cumm [facility] Basophil abs 0.19(H) 0.00 - 0.10 K/cumm [facility] Neutrophil pct 83.9 % [facility] Comment: Interpretive Data Percent cell count reference ranges are not reported, since discordance with absolute values may lead to misinterpretation of CBC data. Current Interpretive Data was last revised on 2018. Lymphocyte pct 6.8 % [facility] Comment: Interpretive Data Percent cell count reference ranges are not reported, since discordance with absolute values may lead to misinterpretation of CBC data. Current Interpretive Data was last revised on 2018. Monocyte pct 8.5 % [facility] Comment: Interpretive Data Percent cell count reference ranges are not reported, since discordance with absolute values may lead to misinterpretation of CBC data. Current Interpretive Data was last revised on 2018. Basophil pct 0.8 % [facility] Comment: Interpretive Data Percent cell count reference ranges are not reported, since discordance with absolute values may lead to misinterpretation of CBC data. Current Interpretive Data was last revised on 2018. RBC morphology Normal [facility] Platelet estimate Increased( A) [facility] Morphology scrn See Comment [facility] Comment:PLT: Platelet morpho logy normal Blood 01/19/2025 4:54 AM CDT 01/19/2025 5:13 AM CDT us Tucker MCGUIRE LAB BLOOD ORDERABLES Final Result [facility] [address] [place] [address] * eGFR (01/19/2025 12:18 AM CDT) eGFR [...] MCGUIRE LAB BLOOD ORDERABLES Fin al Result Performing Organization Address [facility]/ZIP Co de Phone Number [facility] [address] [place] [address] * (ABNORMAL) Basic metabolic panel (01/19/2025 12:18 AM CDT) Pathologist [facility] Sodium 143 135 - 145 mmol/L Potassium, pl 4.2 3.3 - 4.9 mmol/L [facility] Chloride 100 97 - 110 mmol/L [facility] CO2 24 22 - 32 mmol/L [facility] Anion gap 19(H) 2 - 15 mmol/L [facility] BUN 37(H) 6 - 25 mg/dL [facility] Creatinine 0.95 0.80 - 1.30 mg/dL [facility] Glucose 198 70 - 199 mg/dL [facility] Comment: Interpretive Data Fasting glucose >/= 126 [...] 2022. Calcium 8.4(L) 8.5 - 10.3 mg/dL [facility] Blood 01/19/2025 12:1 8 AM CDT 01/19/2025 12:46 AM CDT Desire Ghotra NP LAB BLOOD ORDERABLES Fin al Result Performing Organization Address City/[facility] Co de Phone Number [facility] [address] [place] [address] * (ABNORMAL) Hemoglobin A1c (12/17/2024 12:55 PM CDT) Hgb A1C 6.4(H) 4.0 - 5.6 % Estimated Average Glucose 137 mg/dL [facility] Comment: The ADA recommends reporting an estimated Average Glucose (eAG) with all Hemoglobin A1c results using the equation derived from a study of 507 normal and diabetic adults. Minority populations were underrepresented and children were not included. (Diabetes Care 31:6404-9620, 2008). The eAG is not equivalent to a fasting glucose. Blood 12/17/2024 12:5 5 PM CDT 12/17/2024 1:09 PM CDT us Carlyn Minaya MD LAB BLOOD ORDERABLES Final Result [facility] [address] [place] [address] * (ABNORMAL) Lipid panel (12/17/2024 12:55 PM [...] revised on 2018. Triglycerides 125 <=149 mg/dL [facility] Comment: Interpretive Data Ages < or = [...] revised on 2018. HDL 38(L) >=40 mg/dL [facility] Comment: Interpretive Data Ages < or = [...] on 2018. LDL, calculated 79 <=129 mg/dL [facility] Comment: Interpretive Data Ages < or = [...] in Children and Adolescents. Pediatrics 2011;128:S213 2. DCEP Expert Panel. Circulation 2004;110:227 3. Richie Ruby al. DEMETRIUS Cardiol. 2019February 05;5(5):540-548. doi: 10.1001/jamacardio.2020.0013 Current Interpretive Data was last revised on 2024. Non-HDL Cholesterol 101 mg/dL [facility] Comment: Interpretive Data Ages < or = [...] last revised on 2018. Chol/HDL ratio 4 [facility] Blood 12/17/2024 12:5 5 PM CDT 12/17/2024 1:09 PM CDT us Carlyn Minaya MD LAB BLOOD ORDERABLES Final Result [facility] [address] [place] [address] * CT Chest WO Contrast F/U Lung Screen Protocol (12/06/2022 8:05 AM GANG HEAD SAW OPERATOR) Anatomical Region Laterality Modality Chest N/A Computed Tomogra phy 12/07/2022 7:38 AM GANG HEAD SAW OPERATOR Narrative 12/07/2022 7:48 AM GANG HEAD SAW OPERATOR EXAM DESCRIPTION: CT CHEST WO CONTRAST F/U [...] Electronically signed by Shannon Gardiner M.D. TW: CHELLE Report ID: [id number] Reading Location: [id number] Procedure Note Shannon Gardiner MD - 12/07/2022 [...] Shannon Gardiner M.D. TW: TW Report ID: [id number] Reading Location: [place] [address] Chacha Velazquez MD IMG CT PROCEDURES Final Resul t from Last 3 Months or Most Recently Relevant to Health Maintenance Insurance [employer] MEDICARE ADVANTAGE [employer] MEDICARE ADVANTAGE Advance Directives For more information, please contact: [phone] * Full Code (Latest Code Status on File) Date Activated Date Inactivated Comments 02/18/2025 7:59 PM 03/11/2025 9:12 PM * Full Code Date Activated Date Inactivated Comments 01/15/2025 2:57 PM 01/25/2025 3:50 PM * Full Code Date Activated Date Inactivated Comments 12/22/2024 11:55 AM 12/31/2024 6:37 PM * Full Code Date Activated Date Inactivated Comments 11/10/2024 11:01 AM 11/10/2024 5:45 PM Care Teams Skid Machine Operator Relationship Specialty Start Date End Date Radha Epps, JUANA [address] [facility] [address] [address] PCP - General Nurse Practitioner 12/10/24 Richi Healy MD [address] [place] [address] Referring Physician Cardiology 11/13/24 Carlyn Minaya MD [address] [facility] [address] [place] [address] Consulting Physician Cardiothoracic Surgery 11/13/24
--- NOTE | 2025-04-20 22:57 | ED.GENADULT ---
HPI - General Adult General Stated complaint: heart Time Seen by Provider: 04/20/25 22:56 Source: EMS Mode of arrival: EMS Related Data Home Medications ?Medication ?Instructions ?Recorded ?Confirmed ?Last Taken ?Type amlodipine 10 mg tablet 10 mg PO DAILY 06/20/23 06/20/23 Unknown History aspirin 81 mg tablet,delayed 81 mg PO DAILY 06/20/23 06/20/23 Unknown History release (Adult Low Dose Aspirin) benazepril 40 mg tablet 40 mg PO DAILY 06/20/23 06/20/23 Unknown History carvedilol 25 mg tablet 25 mg PO BID 06/20/23 06/20/23 Unknown History clonidine HCl 0.2 mg tablet 0.2 mg PO TID 06/20/23 06/20/23 Unknown History clopidogrel 75 mg tablet 75 mg PO DAILY 06/20/23 06/20/23 Unknown History empagliflozin 10 mg tablet 10 mg PO DAILY 06/20/23 06/20/23 Unknown History (Jardiance) metformin 1,000 mg tablet 1,000 mg PO DAILY 06/20/23 06/20/23 Unknown History simvastatin 20 mg tablet 20 mg PO DAILY 06/20/23 06/20/23 Unknown History Allergies Allergy/AdvReac Type Severity Reaction Status Date / Time No Known Allergies Allergy Verified 06/20/23 11:00 [facility] Past Medical History Medical History (Updated 02/19/25 @ 00:00 by Background Liv) CABG (coronary artery bypass graft) planned CHF (congestive heart failure) CAD (coronary artery disease) Diabetes mellitus Dyslipidemia Hypertension Discharge Plan Discharge Patient Language: Luxembourgish Prescriptions: No Action clopidogrel 75 mg Tablet 75 mg PO DAILY aspirin [Adult Low Dose Aspirin] 81 mg Tablet,Delayed Release (Dr/Ec) 81 mg PO DAILY amlodipine 10 mg Tablet 10 mg PO DAILY simvastatin 20 mg Tablet 20 mg PO DAILY metformin 1,000 mg Tablet 1,000 mg PO DAILY benazepril 40 mg Tablet 40 mg PO DAILY Jardiance 10 mg Tablet 10 mg PO DAILY carvedilol 25 mg Tablet 25 mg PO BID Rx Instructions: must administer with a meal/food clonidine HCl 0.2 mg Tablet 0.2 mg PO TID Follow-up/Referrals: Kevin Lr MD [Primary Care Provider] -
--- OUTSIDE RECORDS SUMMARY | 2025-04-20 23:04 | XMS_ITS | Clinical Summary ---
Author Organization [facility] Address [address] [place] [address] Care Team Providers Care Retail Associate Manager Bilingual Name Role Phone None, Provider MD Primary [...] Closed left hip fracture, in itial encounter ([facility]) 06/20/2023 Social History Tobacco Use Types Packs/Day [...] place to sleep or slept in a care home (including now)? No 06/20/2023 Sex and [...] this topic Medical Devices Implanted Type Area Silver Service Waiter Device Identifier Shelf Expiration Date Model / Serial / Lot Nail Synthes Tfna Ti Perry 10 X 170mm 125 Deg - [id number] Implanted:Qty: 1 on 06/22/2023 by All Oconnell MD at [facility] Nail Left: Hip SYNTHES 05/07/2033 04.037.012S / / [id number] Tfna Fenestrated Screw 85 Mm Implanted:Qty: 1 on 06/22/2023 by All Oconnell MD at [facility] Left: Hip DEPUY SYNTHES 01/05/2033 04.038.185 S / / [id number] Locking Screw 5 Mm/32mm Implanted:Qty: 1 on 06/22/2023 by All Oconnell MD at [facility] Left: Hip DEPUY SYNTHES 04/06/2031 04.045.032 S / / [id number] Explanted Type Area Silver Service Waiter Device Identifier Shelf Expiration Date Model / Serial / Lot 3.2 Mm Guide Wire Explanted:Qty: 2 on 06/22/2023 at [facility] Left: Hip DEPUY SYNTHES 357.399 / / 4.2 Mm Drill Bit Explanted:Qty: 1 on 06/22/2023 at [facility] Left: Hip DEPUY SYNTHES 03.010.061 / / Insurance Advance Directives * Full Code (Latest Code Status on File) Date Activated Date Inactivated Comments 06/20/2023 3:23 PM 06/25/2023 2:24 PM Care Teams Retail Associate Manager Bilingual Relationship Specialty Start Date End Date None, Provider, MD PCP - General UNKNOWN PHYSICIAN SPECIALTY 06/20/23
--- OUTSIDE RECORDS SUMMARY | 2025-04-20 23:05 | XMS_ITS | Referral Summary ---
Author Organization 4 [facility] Address 4 [place] [address] Care Team Providers Care Missionary Coordinator Name Role Phone Richi Healy MD Unavailable Carlyn Minaya MD Unavailable Radha Epps NP Primary Care Provider Encounters Date Type Department Care Team Description 04/20/2025 9:05 AM CDT Hospital Encounter [facility] [address] [place] [address] Chronic combined systolic and diastolic heart failure (HCC) 03/13/2025 Telephone [facility] Transplant Heart [address] [place] [address] Mailstop -[phone] [place] [address] Paolo Wilson 03/12/2025 Telephone [facility] Transplant Heart [address] [facility] [address] Mailstop -[phone] [place] [address] Saloni Neff 02/18/2025 7:39 PM CDT - 03/11/2025 5:07 PM CDT Hospital Encounter [facility] [address] [place] [phone] Rehana Shipley DO Anand, Nitin Jagdish, MD [...] of lung (HCC); Atrial fibrillation with RVR ([facility]) [I48.91]; Intra-abdominal bleeding; Hemoperitoneum [K66.1]; Chronic systolic (congestive) heart failure (HCC) Discharge Disposition: Discharge to SNF 03/03/2025 Orders Only [facility] - Interventional Radiology [address] [place] [phone] Junior Amaya RN 02/05/2025 Telephone [facility] [address] [facility] [address] [place] [phone] Raine Martinez EP-C cr follow up call 01/26/2025 [facility] Post Discharge Follow up phone call [address] [phone] Destiny Rausch RN 01/25/2025 9:50 AM CDT - 01/25/2025 11:59 PM CDT Hospital Encounter [facility] Cardiac Testing [address] [place] [address] [address] [place] [address] Discharge Disposition: Discharge to home or self care 01/15/2025 2:33 PM CDT - 01/25/2025 11:50 AM CDT Hospital Encounter [address] [phone] Brayden Hopkins MD Acute on chronic systolic heart failure (HCC) (Primary Dx); Pleural effusion [J90]; Melena; Paroxysmal atrial fibrillation (HCC) Discharge Disposition: Discharge to home or self care 01/19/2025 3:28 PM CDT Anesthesia Event [facility] [address] [place] [phone] Huang Hughes MD Prosper, Linette Tsai, ALLOCATIONS CLERK 01/19/2025 2:40 PM CDT - 01/19/2025 3:10 PM CDT Surgery [facility] [address] [place] [phone] Eric Neal MD EGD from Last [...] 974 - 11/09/2024 Tobacco Cessation:Counseling Given: No [facility] Utilities Answer Date Recorded In the past 12 months has [employer], gas, oil, or water [employer] threatened to shut off services in your home? No 02/19/2025 Social Connection and Isolation Panel [NHANES] A nswer Date Recorded In a typical week, how many times do you talk on the phone with family, friends, or neighbors? Twice a week 02/19/2025 How often do you get together with friends or re latives? Twice a week 02/19/2025 How often do you attend hindu or mandaeism serv ices? Never 02/19/2025 Do you belong to any clubs o r organizations such as hindu groups, unions, fraternal or athletic groups, or [...] any time in the past 12 m [facility], were you homeless or living in a assisted (including now)? No 02/19/2025 Personal Safety Answer Date Recorded Have you ever been in or are you currently in a harmful physical or emotional relationship or is someone making you feel afraid or unsafe? 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 Gender Identity Not on file Sexual Orientation [...] BLOOD CULTURE Routine 03/08/2025 4:40 PM CDT LA INSJ NON-TUNNELED CENTRAL VENOUS CATH AGE 3 [...] 12:55 PM CDT Coronary artery disease involving [place] coronary artery of [place] heart with unstable angina pectoris (HCC) Pre-op evaluation Type 2 diabetes mellitus with hyperglycemia, with long-term current use of insulin (HCC) LIPID PANEL Routine 12/17/2024 12:55 PM CDT Coronary artery disease involving [place] coronary artery of [place] heart with unstable angina pectoris (HCC) Pre-op evaluation Type 2 diabetes mellitus with hyperglycemia, with long-term current use of insulin (HCC) CT CHEST WO CONTRAST F/U MELISSA G SCREEN PROTOCOL Schedule Routine, Read Routine (OP Routine) 12/06/2022 8:05 AM 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 POC Performer [id number] [facility] Blood 03/11/2025 12:2 3 PM CDT 03/11/2025 12:23 PM CDT Gil Pierce MD LAB POCT ORDERABLES - DE VICE Final Result Performing Organization Address [facility] Co de Phone Number [facility] [address] [employer] [place], [place] [id number] * POCT glucose (03/11/2025 6:08 AM CDT) Glucose, POC 112 70 - 199 mg/dL Comment: For Glucose values <35 mg/dl when Hematocrit is >60 mg/dl,the test may not accurately detect significant hypoglycemia,and testing in the Laboratory should be considered if clinically indicated. POC Performer [phone] [facility] Blood 03/11/2025 6:08 AM CDT 03/11/2025 6:08 AM CDT us Gil Pierce MD LAB POCT ORDERABLES - DE VICE Final Result Performing Organization Address [facility] Co de Phone Number [facility] [address] [employer] [place], [place] [id number] * (ABNORMAL) Blood smear review (03/11/2025 6:05 AM CDT) Pathologist [facility] RBC morphology Present(A) Hypochromasia 3-7/HPF(A) [facility] Anisocytosis Slight(A) [facility] Elliptocytes 3-7/HPF(A) [facility] Platelet estimate Adequate [facility] Morphology scrn See Comment [facility] Comment:WBC: Toxic Granulati on present RBC: Augustine cells present Blood 03/11/2025 6:05 AM CDT 03/11/2025 6:14 AM CDT us Chase Keen MD LAB BLOOD ORDERABLES Final Resul t [facility] [address] [place] [address] * (ABNORMAL) Differential, auto (03/11/2025 6:05 AM CDT) Neutrophil abs 20.77(H) 1.50 - 6.50 K/cumm Imm gran abs 0.68(H) 0.00 - 0.10 K/cumm [facility] Lymphocyte abs 2.19 0.80 - 3.30 K/cumm [facility] Monocyte abs 2.24(H) 0.20 - 0.80 K/cumm [facility] Eosinophil abs 0.11 0.00 - 0.50 K/cumm [facility] Basophil abs 0.13(H) 0.00 - 0.10 K/cumm [facility] Neutrophil pct 79.5 % [facility] Comment: Interpretive Data Percent cell count reference ranges are not reported, since discordance with absolute values may lead to misinterpretation of CBC data. Current Interpretive Data was last revised on 2018. Imm gran pct 2.6 % [facility] Comment: Interpretive Data Percent cell count reference ranges are not reported, since discordance with absolute values may lead to misinterpretation of CBC data. Current Interpretive Data was last revised on 2018. Lymphocyte pct 8.4 % [facility] Comment: Interpretive Data Percent cell count reference ranges are not reported, since discordance with absolute values may lead to misinterpretation of CBC data. Current Interpretive Data was last revised on 2018. Monocyte pct 8.6 % [facility] Comment: Interpretive Data Percent cell count reference ranges are not reported, since discordance with absolute values may lead to misinterpretation of CBC data. Current Interpretive Data was last revised on 2018. Eosinophil pct 0.4 % [facility] Comment: Interpretive Data Percent cell count reference ranges are not reported, since discordance with absolute values may lead to misinterpretation of CBC data. Current Interpretive Data was last revised on 2018. Basophil pct 0.5 % [facility] Comment: Interpretive Data Percent cell count reference ranges are not reported, since discordance with absolute values may lead to misinterpretation of CBC data. Current Interpretive Data was last revised on 2018. Blood 03/11/2025 6:05 AM CDT 03/11/2025 6:14 AM CDT us Chase Keen MD LAB BLOOD ORDERABLES Final Resul t [facility] [address] [place] [address] * (ABNORMAL) CBC with auto differential (03/11/2025 6:05 AM CDT) WBC 26.12(H) 3.80 - 9.90 K/cumm Hgb 8.9(L) 13.0 - 17.5 g/dL [facility] Hct 29.6(L) 38.9 - 50.3 % [facility] Plt 283 150 - 400 K/cumm [facility] MPV 9.6 9.1 - 12.3 fL [facility] RBC 3.09(L) 4.30 - 5.80 M/cumm [facility] MCV 95.8 81.3 - 96.4 fL [facility] MCH 28.8 27.1 - 33.3 pg [facility] MCHC 30.1(L) 32.3 - 35.7 g/dL [facility] RDW CV 16.6(H) 11.1 - 14.9 % [facility] RDW SD 55.8(H) 35.7 - 48.1 fL [facility] NRBC abs 0.02(H) 0.00 - 0.01 K/cumm [facility] Blood 03/11/2025 6:05 AM CDT 03/11/2025 6:14 AM CDT us Chase Keen MD LAB BLOOD ORDERABLES Final Resul t Performing Organization Address [facility] Co de Phone Number [facility] [address] Department [place] [address] * POCT glucose (03/10/2025 8:45 PM CDT) Glucose, POC 175 70 - 199 mg/dL Comment: For Glucose values <35 mg/dl when Hematocrit is >60 mg/dl,the test may not accurately detect significant hypoglycemia,and testing in the Laboratory should be considered if clinically indicated. POC Performer [id number] [facility] Blood 03/10/2025 8:45 PM CDT 03/10/2025 8:45 PM CDT us Gil Pierce MD LAB POCT ORDERABLES - DE VICE Final Result Performing Organization Address [facility] Co de Phone Number [facility] [address] [place] [address] * POCT glucose (03/10/2025 4:52 PM CDT) Glucose, POC 146 70 - 199 mg/dL Comment: For Glucose values <35 mg/dl when Hematocrit is >60 mg/dl,the test may not accurately detect significant hypoglycemia,and testing in the Laboratory should be considered if clinically indicated. POC Performer [id number] [facility] Blood 03/10/2025 4:52 PM CDT 03/10/2025 4:52 PM CDT us Gil Pierce MD LAB POCT ORDERABLES - DE VICE Final Result Performing Organization Address [facility]/ZIP Co de Phone Number [facility] [address] [facility] [place] [address] * POCT glucose (03/10/2025 12:58 PM CDT) Glucose, POC 151 70 - 199 mg/dL Comment: For Glucose values <35 mg/dl when Hematocrit is >60 mg/dl,the test may not accurately detect significant hypoglycemia,and testing in the Laboratory should be considered if clinically indicated. POC Performer [id number] [facility] Blood 03/10/2025 12:5 8 PM CDT 03/10/2025 12:58 PM CDT Gil Pierce MD LAB POCT ORDERABLES - DE VICE Final Result Performing Organization Address [facility] Co de Phone Number [facility] [address] [facility] [place] [address] * POCT glucose (03/10/2025 6:19 AM CDT) Glucose, POC 116 70 - 199 mg/dL Comment: For Glucose values <35 mg/dl when Hematocrit is >60 mg/dl,the test may not accurately detect significant hypoglycemia,and testing in the Laboratory should be considered if clinically indicated. POC Performer [id number] [facility] Blood 03/10/2025 6:19 AM CDT 03/10/2025 6:19 AM CDT Gil Pierce MD LAB POCT ORDERABLES - DE VICE Final Result Performing Organization Address [facility] Co de Phone Number [facility] [address] [facility] [place] [address] * eGFR (03/10/2025 3:44 AM CDT) eGFR [...] MD LAB BLOOD ORDERABLES Final Re sult [facility] [address] [place] [address] * (ABNORMAL) Differential, auto (03/10/2025 3:44 AM CDT) Neutrophil abs 20.12(H) 1.50 - 6.50 K/cumm Imm gran abs 0.76(H) 0.00 - 0.10 K/cumm [facility] Lymphocyte abs 2.62 0.80 - 3.30 K/cumm [facility] Monocyte abs 2.16(H) 0.20 - 0.80 K/cumm [facility] Eosinophil abs 0.19 0.00 - 0.50 K/cumm [facility] Basophil abs 0.07 0.00 - 0.10 K/cumm [facility] Neutrophil pct 77.7 % [facility] Comment: Differential consistent with previous result. Interpretive Data Percent cell count reference ranges are not reported, since discordance with absolute values may lead to misinterpretation of CBC data. Current Interpretive Data was last revised on 2018. Imm gran pct 2.9 % [facility] Comment: Interpretive Data Percent cell count reference ranges are not reported, since discordance with absolute values may lead to misinterpretation of CBC data. Current Interpretive Data was last revised on 2018. Lymphocyte pct 10.1 % [facility] Comment: Interpretive Data Percent cell count reference ranges are not reported, since discordance with absolute values may lead to misinterpretation of CBC data. Current Interpretive Data was last revised on 2018. Monocyte pct 8.3 % [facility] Comment: Interpretive Data Percent cell count reference ranges are not reported, since discordance with absolute values may lead to misinterpretation of CBC data. Current Interpretive Data was last revised on 2018. Eosinophil pct 0.7 % [facility] Comment: Interpretive Data Percent cell count reference ranges are not reported, since discordance with absolute values may lead to misinterpretation of CBC data. Current Interpretive Data was last revised on 2018. Basophil pct 0.3 % [facility] Comment: Interpretive Data Percent cell count reference ranges are not reported, since discordance with absolute values may lead to misinterpretation of CBC data. Current Interpretive Data was last revised on 2018. Blood 03/10/2025 3:44 AM CDT 03/10/2025 3:59 AM CDT us Chase Keen MD LAB BLOOD ORDERABLES Final Resul t [facility] [address] [place] [address] * (ABNORMAL) CBC with auto differential (03/10/2025 3:44 AM CDT) WBC 25.92(H) 3.80 - 9.90 K/cumm Hgb 8.4(L) 13.0 - 17.5 g/dL [facility] Hct 27.2(L) 38.9 - 50.3 % [facility] Plt 287 150 - 400 K/cumm [facility] MPV 9.7 9.1 - 12.3 fL [facility] RBC 2.88(L) 4.30 - 5.80 M/cumm [facility] MCV 94.4 81.3 - 96.4 fL [facility] MCH 29.2 27.1 - 33.3 pg [facility] MCHC 30.9(L) 32.3 - 35.7 g/dL [facility] RDW CV 16.4(H) 11.1 - 14.9 % [facility] RDW SD 54.4(H) 35.7 - 48.1 fL [facility] NRBC abs 0.03(H) 0.00 - 0.01 K/cumm [facility] Blood 03/10/2025 3:44 AM CDT 03/10/2025 3:59 AM CDT Chase Keen MD LAB BLOOD ORDERABLES Final Resul t Performing Organization Address [facility]/ZIP Co de Phone Number [facility] [address] [place] [address] * Lipase (03/10/2025 3:44 AM CDT) Pathologist [facility] Lipase 87 10 - 99 Units/L Blood 03/10/2025 3:44 AM CDT 03/10/2025 3:58 AM CDT Chao Vann MD LAB BLOOD ORDERABLES Final Re sult Performing Organization Address [facility]/ZIP Co de Phone Number [facility] [address] [place] [address] * (ABNORMAL) Basic metabolic panel (03/10/2025 3:44 AM CDT) Pathologist [facility] Sodium 137 135 - 145 mmol/L Potassium, pl 4.7 3.3 - 4.9 mmol/L [facility] Chloride 102 97 - 110 mmol/L [facility] CO2 22 22 - 32 mmol/L [facility] Anion gap 13 2 - 15 mmol/L [facility] BUN 28(H) 6 - 25 mg/dL [facility] Creatinine 1.13 0.80 - 1.30 mg/dL [facility] Glucose 114 70 - 199 mg/dL [facility] Comment: Interpretive Data Fasting glucose >/= 126 [...] 2022. Calcium 7.9(L) 8.5 - 10.3 mg/dL [facility] Blood 03/10/2025 3:44 AM CDT 03/10/2025 3:58 AM CDT us Chao Vann MD LAB BLOOD ORDERABLES Final Re sult Performing Organization Address [facility]/ZIP Co de Phone Number [facility] [address] [place] [address] * (ABNORMAL) POCT glucose (03/09/2025 8:47 PM CDT) [facility] Glucose, POC 210(H) 70 - 199 mg/dL Comment: For Glucose values <35 mg/dl when Hematocrit is >60 mg/dl,the test may not accurately detect significant hypoglycemia,and testing in the Laboratory should be considered if clinically indicated. POC Performer [id number] [facility] Blood 03/09/2025 8:47 PM CDT 03/09/2025 8:47 PM CDT us Gil Pierce MD LAB POCT ORDERABLES - DE VICE Final Result Performing Organization Address [facility]/ZIP Co de Phone Number [facility] [address] [place] [address] * Amylase - Add on lab test (03/09/2025 7:03 PM CDT) Acceptable Yes Blood 03/09/2025 7:03 PM CDT 03/09/2025 7:04 PM CDT Narrative [facility] - 03/09/2025 7:05 PM CDT Name of Test->Amylase Chao Vann MD LAB BLOOD ORDERABLES Final Re sult Performing Organization Address [facility]/ZIP Co de Phone Number [facility] [address] Department [place] [address] * POCT glucose (03/09/2025 5:40 PM CDT) Glucose, POC 129 70 - 199 mg/dL Comment: For Glucose values <35 mg/dl when Hematocrit is >60 mg/dl,the test may not accurately detect significant hypoglycemia,and testing in the Laboratory should be considered if clinically indicated. POC Performer [id number] [facility] Blood 03/09/2025 5:40 PM CDT 03/09/2025 5:40 PM CDT Gil Pierce MD LAB POCT ORDERABLES - DE VICE Final Result Performing Organization Address [facility] Co de Phone Number [facility] [address] [place] [address] * POCT glucose (03/09/2025 12:11 PM CDT) Glucose, POC 165 70 - 199 mg/dL Comment: For Glucose values <35 mg/dl when Hematocrit is >60 mg/dl,the test may not accurately detect significant hypoglycemia,and testing in the Laboratory should be considered if clinically indicated. POC Performer [id number] [facility] Blood 03/09/2025 12:1 1 PM CDT 03/09/2025 12:11 PM CDT Gil Pierce MD LAB POCT ORDERABLES - DE VICE Final Result Performing Organization Address [facility] Co de Phone Number [facility] [address] [place] [address] * Procalcitonin - Add on lab test (03/09/2025 10:43 AM CDT) [facility] Acceptable Yes Blood 03/09/2025 10:4 3 AM CDT 03/09/2025 10:43 AM CDT Narrative [facility] - 03/09/2025 10:43 AM CDT Name of Test->Procalcitonin us Gil Pierce MD LAB BLOOD ORDERABLES Fin al Result Performing Organization Address [facility] Co de Phone Number [facility] [address] [place] [address] * POCT glucose (03/09/2025 6:38 AM CDT) [facility] Glucose, POC 122 70 - 199 mg/dL Comment: For Glucose values <35 mg/dl when Hematocrit is >60 mg/dl,the test may not accurately detect significant hypoglycemia,and testing in the Laboratory should be considered if clinically indicated. POC Performer [phone] [facility] Blood 03/09/2025 6:38 AM CDT 03/09/2025 6:38 AM CDT us Chase Keen MD LAB POCT ORDERABLES - DEVICE Fin al Result Performing Organization Address [facility] Co de Phone Number [facility] [address] [place] [address] * eGFR (03/09/2025 4:54 AM CDT) [facility] eGFR 73 >=60 mL/min/1. 73 m2 Comment: [...] MD LAB BLOOD ORDERABLES Final Resul t [facility] [address] [place] [address] * (ABNORMAL) Differential, auto (03/09/2025 4:54 AM CDT) Neutrophil abs 21.28(H) 1.50 - 6.50 K/cumm Imm gran abs 1.01(H) 0.00 - 0.10 K/cumm [facility] Lymphocyte abs 2.38 0.80 - 3.30 K/cumm [facility] Monocyte abs 2.34(H) 0.20 - 0.80 K/cumm [facility] Eosinophil abs 0.15 0.00 - 0.50 K/cumm [facility] Basophil abs 0.11(H) 0.00 - 0.10 K/cumm [facility] Neutrophil pct 78.0 % [facility] Comment: Differential consistent with previous result. Interpretive Data Percent cell count reference ranges are not reported, since discordance with absolute values may lead to misinterpretation of CBC data. Current Interpretive Data was last revised on 2018. Imm gran pct 3.7 % [facility] Comment: Interpretive Data Percent cell count reference ranges are not reported, since discordance with absolute values may lead to misinterpretation of CBC data. Current Interpretive Data was last revised on 2018. Lymphocyte pct 8.7 % [facility] Comment: Interpretive Data Percent cell count reference ranges are not reported, since discordance with absolute values may lead to misinterpretation of CBC data. Current Interpretive Data was last revised on 2018. Monocyte pct 8.6 % [facility] Comment: Interpretive Data Percent cell count reference ranges are not reported, since discordance with absolute values may lead to misinterpretation of CBC data. Current Interpretive Data was last revised on 2018. Eosinophil pct 0.6 % [facility] Comment: Interpretive Data Percent cell count reference ranges are not reported, since discordance with absolute values may lead to misinterpretation of CBC data. Current Interpretive Data was last revised on 2018. Basophil pct 0.4 % [facility] Comment: Interpretive Data Percent cell count reference ranges are not reported, since discordance with absolute values may lead to misinterpretation of CBC data. Current Interpretive Data was last revised on 2018. Blood 03/09/2025 4:54 AM CDT 03/09/2025 4:54 AM CDT us Chase Keen MD LAB BLOOD ORDERABLES Final Resul t Performing Organization Address City/[facility]/ZIP Co de Phone Number [facility] [address] [place] [address] * Procalcitonin (03/09/2025 4:54 AM CDT) Procalcitonin 0.25 <=0.25 ng/mL Blood 03/09/2025 4:54 AM CDT 03/09/2025 4:54 AM CDT us Gil Pierce MD LAB BLOOD ORDERABLES Fin al Result Performing Organization Address City/[facility]/ZIP Co de Phone Number [facility] [address] [place] [address] * (ABNORMAL) CBC with auto differential (03/09/2025 4:54 AM CDT) WBC 27.27(H) 3.80 - 9.90 K/cumm Hgb 8.5(L) 13.0 - 17.5 g/dL [facility] Hct 27.4(L) 38.9 - 50.3 % [facility] Plt 322 150 - 400 K/cumm [facility] MPV 10.1 9.1 - 12.3 fL [facility] RBC 2.89(L) 4.30 - 5.80 M/cumm [facility] MCV 94.8 81.3 - 96.4 fL [facility] MCH 29.4 27.1 - 33.3 pg [facility] MCHC 31.0(L) 32.3 - 35.7 g/dL [facility] RDW CV 15.8(H) 11.1 - 14.9 % [facility] RDW SD 53.3(H) 35.7 - 48.1 fL [facility] NRBC abs 0.07(H) 0.00 - 0.01 K/cumm [facility] Blood 03/09/2025 4:54 AM CDT 03/09/2025 4:54 AM CDT Chase Keen MD LAB BLOOD ORDERABLES Final Resul t Performing Organization Address [facility] Co de Phone Number [facility] [address] [place] [place] [address] * (ABNORMAL) CRP (acute phase) (03/09/2025 4:54 AM CDT) Pathologist [facility] CRP 100.3(H) <=10.0 mg/L Blood 03/09/2025 4:54 AM CDT 03/09/2025 4:54 AM CDT Chase Keen MD LAB BLOOD ORDERABLES Final Resul t Performing Organization Address City/[facility]/ZIP Co de Phone Number [facility] [address] [place] [address] * Amylase (03/09/2025 4:54 AM CDT) Amylase 73 30 - 99 Units/L Blood 03/09/2025 4:54 AM CDT 03/09/2025 4:54 AM CDT Gil Pierce MD LAB BLOOD ORDERABLES [facility] al Result [facility] [address] [place] [address] * (ABNORMAL) Comprehensive metabolic panel (03/09/2025 4:54 AM CDT) Pathologist [facility] Sodium 136 135 - 145 mmol/L Potassium, pl 4.8 3.3 - 4.9 mmol/L [facility] Chloride 102 97 - 110 mmol/L [facility] CO2 22 22 - 32 mmol/L [facility] Anion gap 12 2 - 15 mmol/L [facility] BUN 33(H) 6 - 25 mg/dL [facility] Creatinine 1.08 0.80 - 1.30 mg/dL [facility] Glucose 119 70 - 199 mg/dL [facility] Comment: Interpretive Data Fasting glucose >/= 126 [...] 2022. Calcium 8.0(L) 8.5 - 10.3 mg/dL [facility] Bilirubin, total 0.3 0.1 - 1.2 mg/dL [facility] Protein, pl 5.7(L) 6.5 - 8.5 g/dL [facility] Albumin 2.6(L) 3.5 - 5.0 g/dL [facility] Alk phos 79 40 - 130 Units/L [facility] ALT 25 7 - 55 Units/L [facility] AST 32 10 - 50 Units/L [facility] Blood 03/09/2025 4:54 AM CDT 03/09/2025 4:54 AM CDT Chase Keen MD LAB BLOOD ORDERABLES Final Resul t Performing Organization Address [facility] Co de Phone Number [facility] [address] Department of Laboratories [place], [place] [phone] * (ABNORMAL) POCT glucose (03/08/2025 9:15 PM CDT) [facility] Signature Glucose, POC 204(H) 70 - 199 mg/dL Comment: For Glucose values <35 mg/dl when Hematocrit is >60 mg/dl,the test may not accurately detect significant hypoglycemia,and testing in the Laboratory should be considered if clinically indicated. POC Performer [id number] [facility] Blood 03/08/2025 9:15 PM CDT 03/08/2025 9:15 PM CDT Chase Keen MD LAB POCT ORDERABLES - DEVICE Fin al Result Performing Organization Address [facility] Co de Phone Number [facility] [address] [place] [address] * CT Abdomen W Contrast (03/08/2025 5:36 [...] Right subclavian vein thrombophlebitis. Electronically signed by: Jeo Larson M.D., MPH Narrative 03/09/2025 7:01 AM [...] Joe Larson M.D., MPH Chase Keen MD [facility] CT PROCEDURES Final Result * POCT glucose (03/08/2025 5:01 PM CDT) Glucose, POC 126 70 - 199 mg/dL Comment: For Glucose values <35 mg/dl when Hematocrit is >60 mg/dl,the test may not accurately detect significant hypoglycemia,and testing in the Laboratory should be considered if clinically indicated. POC Performer [phone] [facility] Blood 03/08/2025 5:01 PM CDT 03/08/2025 5:01 PM CDT Chase Keen MD LAB POCT ORDERABLES - DEVICE Fin al Result Performing Organization Address [facility] Co de Phone Number [facility] [address] Department [place], [place] [phone] * eGFR (03/08/2025 4:56 PM CDT) eGFR [...] ORDERABLES Final Resul t Performing Organization Address [facility]/ZIP Co de Phone Number [facility] [address] [place] [address] * (ABNORMAL) Comprehensive metabolic panel (03/08/2025 4:56 PM CDT) Pathologist [facility] Sodium 135 135 - 145 mmol/L Potassium, pl 4.6 3.3 - 4.9 mmol/L [facility] Chloride 102 97 - 110 mmol/L [facility] CO2 21(L) 22 - 32 mmol/L [facility] Anion gap 12 2 - 15 mmol/L [facility] BUN 33(H) 6 - 25 mg/dL [facility] Creatinine 1.11 0.80 - 1.30 mg/dL [facility] Glucose 126 70 - 199 mg/dL [facility] Comment: Interpretive Data Fasting glucose >/= 126 [...] 2022. Calcium 8.0(L) 8.5 - 10.3 mg/dL [facility] Bilirubin, total 0.4 0.1 - 1.2 mg/dL [facility] Protein, pl 5.7(L) 6.5 - 8.5 g/dL [facility] Albumin 2.4(L) 3.5 - 5.0 g/dL [facility] Alk phos 79 40 - 130 Units/L [facility] ALT 24 7 - 55 Units/L [facility] AST 30 10 - 50 Units/L [facility] Blood 03/08/2025 4:56 PM CDT 03/08/2025 5:02 PM CDT us Chase Keen MD LAB BLOOD ORDERABLES Final Resul t [facility] [address] [place] [address] * XR Chest 1 View (03/08/2025 4:51 [...] CDT 03/08/2025 4:47 PM CDT Isreal [facility] - 03/14/2025 7:00 AM CDT [...] organism identification may be performed using the Flashnotes Blood Culture Identification panel. This assay detects microbial DNA in a blood culture broth. This assay has been cleared by the [place] Food and Drug Administration and its performance characteristics have been verified by the [facility]. Interpretive data was last revised on November 09, 2022. Chase Keen MD LAB MICROBIOLOGY - GENERAL ORDER TASNEEM Final Result Performing Organization Address [facility] de Phone Number [facility] [address] [place] [address] * Blood culture Blood (03/08/2025 4:40 PM CDT) Report Final Report: No growth Blood 03/08/2025 4:40 PM CDT 03/08/2025 4:47 [address] [facility] - 03/14/2025 7:00 AM CDT [...] organism identification may be performed using the Flashnotes Blood Culture Identification panel. This assay detects microbial DNA in a blood culture broth. This assay has been cleared by the [place] Food and Drug Administration and its performance characteristics have been verified by the [facility]. Interpretive data was last revised on November 09, 2022. Chase Keen MD LAB MICROBIOLOGY - GENERAL ORDER TASNEEM Final Result Performing Organization Address [facility] de Phone Number [facility] [address] [place] [address] * LA INSJ NON-TUNNELED CENTRAL VENOUS CATH AGE 5 YR/> (03/08/2025 4:28 PM CDT) Narrative Suzette Sanabria PA - 03/08/2025 4:28 PM CDT Suzette Sanabria PA 03/08/2025 4:29 PM PICC Line Insertion Date/Time: 03/08/2025 4:28 PM Performed by: Suzette Sanabria PA Authorized by: Suzette Sanabria PA [place] Protocol: RN Notified of Procedure: yes Informed consent: Risks, benefits, alternatives discussed and patient/cash application representative/guardian agrees and accepts Patient's stated name/ [...] ur Yellow Yellow Clarity, ur Clear Clear [facility] Specific gravity, ur 1.022 1.003 - 1.030 [facility] pH, urine 5.5 [facility] Comment: Interpretive Data U rine pH is affected by diet, medications, systemic acid-base disturbances, and renal tubular function. pH may affect urinary stone formation. For example, urine pH below 6.0 may help reduce the tendency for calcium phosphate stones and pH greater than 6.0 may reduce the tendency for uric acid stone formation. Source: [facility] Current Interpretive Data was last revised on 2017 Protein, ur ql Trace Negative [facility] Glucose, ur ql 4+(A) Negative [facility] Ketones, ur Negative Negative [facility] Bilirubin, ur Negative Negative [facility] Blood, ur Negative Negative [facility] Urobilinogen, ur <2.0 <2.0 mg/dL [facility] Nitrite, ur Negative Negative [facility] Leukocyte esterase, ur Negative Negative [facility] UA reflex comment Reflex conditions for microscopic UA not met. [facility] Urine 03/08/2025 3:11 PM CDT 03/08/2025 3:11 PM CDT Chase Keen MD LAB URINE ORDERABLES Final Resul t Performing Organization Address [facility]/ZIP Co de Phone Number [facility] [address] [place] [address] * POCT glucose (03/08/2025 12:22 PM CDT) Pathologist [facility] Glucose, POC 142 70 - 199 mg/dL Comment: For Glucose values <35 mg/dl when Hematocrit is >60 mg/dl,the test may not accurately detect significant hypoglycemia,and testing in the Laboratory should be considered if clinically indicated. POC Performer [phone] [facility] Blood 03/08/2025 12:2 2 PM CDT 03/08/2025 12:22 PM CDT Chase Keen MD LAB POCT ORDERABLES - DEVICE Fin al Result Performing Organization Address City/[facility]/ZIP Co de Phone Number [facility] [address] [place] [address] * (ABNORMAL) Blood smear review (03/08/2025 10:29 AM CDT) Pathologist [facility] RBC morphology Present(A) Anisocytosis Slight(A) [facility] Poikilocytosis Slight(A) [facility] Elliptocytes 3-7/HPF(A) [facility] Platelet estimate Adequate [facility] Morphology scrn See Comment [facility] Comment:PLT: Platelet morpho logy normal Blood 03/08/2025 10:2 9 AM CDT 03/08/2025 10:37 AM CDT us Chase Keen MD LAB BLOOD ORDERABLES Final Resul t [facility] [address] [place] [address] * (ABNORMAL) Differential, auto (03/08/2025 10:29 AM CDT) Neutrophil abs 25.51(H) 1.50 - 6.50 K/cumm Imm gran abs 0.84(H) 0.00 - 0.10 K/cumm [facility] Lymphocyte abs 2.46 0.80 - 3.30 K/cumm [facility] Monocyte abs 2.43(H) 0.20 - 0.80 K/cumm [facility] Eosinophil abs 0.09 0.00 - 0.50 K/cumm [facility] Basophil abs 0.11(H) 0.00 - 0.10 K/cumm [facility] Neutrophil pct 81.2 % [facility] Comment: Interpretive Data Percent cell count reference ranges are not reported, since discordance with absolute values may lead to misinterpretation of CBC data. Current Interpretive Data was last revised on 2018. Imm gran pct 2.7 % [facility] Comment: Interpretive Data Percent cell count reference ranges are not reported, since discordance with absolute values may lead to misinterpretation of CBC data. Current Interpretive Data was last revised on 2018. Lymphocyte pct 7.8 % [facility] Comment: Interpretive Data Percent cell count reference ranges are not reported, since discordance with absolute values may lead to misinterpretation of CBC data. Current Interpretive Data was last revised on 2018. Monocyte pct 7.7 % [facility] Comment: Interpretive Data Percent cell count reference ranges are not reported, since discordance with absolute values may lead to misinterpretation of CBC data. Current Interpretive Data was last revised on 2018. Eosinophil pct 0.3 % [facility] Comment: Interpretive Data Percent cell count reference ranges are not reported, since discordance with absolute values may lead to misinterpretation of CBC data. Current Interpretive Data was last revised on 2018. Basophil pct 0.3 % [facility] Comment: Interpretive Data Percent cell count reference ranges are not reported, since discordance with absolute values may lead to misinterpretation of CBC data. Current Interpretive Data was last revised on 2018. Blood 03/08/2025 10:2 9 AM CDT 03/08/2025 10:37 AM CDT us Chase Keen MD LAB BLOOD ORDERABLES Final Resul t [facility] [address] [place] [address] * (ABNORMAL) CBC with auto differential (03/08/2025 10:29 AM CDT) WBC 31.44(H) 3.80 - 9.90 K/cumm Hgb 9.5(L) 13.0 - 17.5 g/dL [facility] Hct 30.6(L) 38.9 - 50.3 % [facility] Plt 283 150 - 400 K/cumm [facility] MPV 10.0 9.1 - 12.3 fL [facility] RBC 3.28(L) 4.30 - 5.80 M/cumm [facility] MCV 93.3 81.3 - 96.4 fL [facility] MCH 29.0 27.1 - 33.3 pg [facility] MCHC 31.0(L) 32.3 - 35.7 g/dL [facility] RDW CV 15.8(H) 11.1 - 14.9 % [facility] RDW SD 53.2(H) 35.7 - 48.1 fL [facility] NRBC abs 0.03(H) 0.00 - 0.01 K/cumm [facility] Morphologic Screen Results confirmed by manual morphology review. [facility] Blood 03/08/2025 10:2 9 AM CDT 03/08/2025 10:37 AM CDT Result [facility] Chase Keen MD LAB BLOOD ORDERABLES Edited Resu lt - Final Performing Organization Address [facility] de Phone Number [facility] [address] [facility] [employer] [place], [place] [phone] * POCT glucose (03/08/2025 6:12 AM CDT) Glucose, POC 155 70 - 199 mg/dL Comment: For Glucose values <35 mg/dl when Hematocrit is >60 mg/dl,the test may not accurately detect significant hypoglycemia,and testing in the Laboratory should be considered if clinically indicated. POC Performer [phone] [facility] Blood 03/08/2025 6:12 AM CDT 03/08/2025 6:12 AM CDT Result [facility] Chase Keen MD LAB POCT ORDERABLES - DEVICE Fin al Result Performing Organization Address [facility] de Phone Number [facility] [address] [facility] [place] [address] * POCT glucose (03/07/2025 9:08 PM CDT) Glucose, POC 110 70 - 199 mg/dL Comment: For Glucose values <35 mg/dl when Hematocrit is >60 mg/dl,the test may not accurately detect significant hypoglycemia,and testing in the Laboratory should be considered if clinically indicated. POC Performer [phone] [facility] Blood 03/07/2025 9:08 PM CDT 03/07/2025 9:08 PM CDT Result [facility] Chase Keen MD LAB POCT ORDERABLES - DEVICE Fin al Result Performing Organization Address [facility] Co de Phone Number [facility] [address] [place] [address] * Lactate (03/07/2025 8:19 PM CDT) Lactate 1.7 0.7 - 2.0 mmol/L Blood 03/07/2025 8:19 PM CDT 03/07/2025 8:23 PM CDT us Chase Keen MD LAB BLOOD ORDERABLES Final Resul t Performing Organization Address [facility] Co de Phone Number [facility] [address] [place] [address] * XR Kub (03/07/2025 7:17 PM CDT) [...] wires at the superior margin of the [id number]. Calcified gallstone projecting over the expected region [...] wires at the superior margin of the [id number]. Calcified gallstone projecting over the expected region [...] be considered if clinically indicated. POC Performer [id number] [facility] Blood 03/07/2025 5:05 PM CDT 03/07/2025 5:05 PM CDT Chase Keen MD LAB POCT ORDERABLES - DEVICE Fin al Result [facility] [address] [place] [address] * (ABNORMAL) POCT glucose (03/07/2025 12:06 PM CDT) Glucose, POC 201(H) 70 - 199 mg/dL Comment: For Glucose values <35 mg/dl when Hematocrit is >60 mg/dl,the test may not accurately detect significant hypoglycemia,and testing in the Laboratory should be considered if clinically indicated. POC Performer [id number] [facility] Blood 03/07/2025 12:0 6 PM CDT 03/07/2025 12:06 PM CDT Chase Keen MD LAB POCT ORDERABLES - DEVICE Fin al Result Performing Organization Address [facility] Co de Phone Number [facility] [address] [facility] [employer] [place], [place] [id number] * (ABNORMAL) Hemoglobin and hematocrit (03/07/2025 9:28 AM CDT) Hgb 9.3(L) 13.0 - 17.5 g/dL Hct 29.3(L) 38.9 - 50.3 % [facility] Blood 03/07/2025 9:28 AM CDT 03/07/2025 9:35 AM CDT us Maryjo Deshpande MD LAB BLOOD ORDERABLES Final R esult Performing Organization Address [facility] de Phone Number [facility] [address] [facility] [employer] [place], [place] [phone] * POCT glucose (03/07/2025 6:28 AM CDT) Pathologist [facility] Glucose, POC 147 70 - 199 mg/dL Comment: For Glucose values <35 mg/dl when Hematocrit is >60 mg/dl,the test may not accurately detect significant hypoglycemia,and testing in the Laboratory should be considered if clinically indicated. POC Performer [id number] [facility] Blood 03/07/2025 6:28 AM CDT 03/07/2025 6:28 AM CDT Chase Keen MD LAB POCT ORDERABLES - DEVICE David carrillo Result Performing Organization Address [facility] Co de Phone Number [facility] [address] [facility] [employer] [place], [place] [id number] * (ABNORMAL) Hemoglobin and hematocrit (03/07/2025 12:22 AM CDT) Hgb 8.5(L) 13.0 - 17.5 g/dL Hct 26.7(L) 38.9 - 50.3 % [facility] Blood 03/07/2025 12:2 2 AM CDT 03/07/2025 1:02 AM CDT Maryjo Deshpande MD LAB BLOOD ORDERABLES Final R esult Performing Organization Address [facility] de Phone Number [facility] [address] [facility] [place] [address] * POCT glucose (03/06/2025 9:27 PM CDT) Glucose, POC 135 70 - 199 mg/dL Comment: For Glucose values <35 mg/dl when Hematocrit is >60 mg/dl,the test may not accurately detect significant hypoglycemia,and testing in the Laboratory should be considered if clinically indicated. POC Performer [phone] [facility] Blood 03/06/2025 9:27 PM CDT 03/06/2025 9:27 PM CDT Chase Keen MD LAB POCT ORDERABLES - DEVICE Fin al Result Performing Organization Address [facility] de Phone Number [facility] [address] [facility] [place] [place] [address] * POCT glucose (03/06/2025 5:15 PM CDT) Glucose, POC 174 70 - 199 mg/dL Comment: For Glucose values <35 mg/dl when Hematocrit is >60 mg/dl,the test may not accurately detect significant hypoglycemia,and testing in the Laboratory should be considered if clinically indicated. POC Performer [phone] [facility] Blood 03/06/2025 5:15 PM CDT 03/06/2025 5:15 PM CDT Chase Keen MD LAB POCT ORDERABLES - DEVICE Fin al Result Performing Organization Address [facility]/State/ZIP Co de Phone Number [facility] [address] [address] * (ABNORMAL) Hemoglobin and hematocrit (03/06/2025 4:55 PM CDT) Hgb 8.7(L) 13.0 - 17.5 g/dL Hct 28.2(L) 38.9 - 50.3 % [facility] Blood 03/06/2025 4:55 PM CDT 03/06/2025 5:10 PM CDT us Maryjo Deshpande MD LAB BLOOD ORDERABLES Final R esult [facility] [address] [place] [address] * US Vein Duplex Upper Extremity Right [...] vein and median cubital vein. Patient's nurse Daev notified of findings at 2:01 p.m. Electronically signed by: Teodoro Law MD Chase Keen MD [facility] PROCEDURES Final Result * POCT glucose (03/06/2025 1:15 PM CDT) [facility] Glucose, POC 168 70 - 199 mg/dL Comment: For Glucose values <35 mg/dl when Hematocrit is >60 mg/dl,the test may not accurately detect significant hypoglycemia,and testing in the Laboratory should be considered if clinically indicated. POC Performer [phone] [facility] Blood 03/06/2025 1:15 PM CDT 03/06/2025 1:15 PM CDT Chase Keen MD LAB POCT ORDERABLES - DEVICE Fin al Result [facility] [address] [place] [address] * Iron profile - Add on lab test (03/06/2025 10:52 AM CDT) Pathologist [facility] Acceptable Yes Blood 03/06/2025 10:5 2 AM CDT 03/06/2025 10:52 AM CDT Narrative [facility] - 03/06/2025 10:52 AM CDT Name of Test->Iron profile us Balbina Mac NP LAB BLOOD ORDERABLES Fi nal Result Performing Organization Address [facility]/ZIP Co de Phone Number [facility] [address] [place] [address] * (ABNORMAL) Hemoglobin and hematocrit (03/06/2025 10:11 AM CDT) [facility] Hgb 8.8(L) 13.0 - 17.5 g/dL Hct 28.6(L) 38.9 - 50.3 % [facility] Blood 03/06/2025 10:1 1 AM CDT 03/06/2025 10:27 AM CDT us Maryjo Deshpande MD LAB BLOOD ORDERABLES Final R esult Performing Organization Address [facility] Co de Phone Number [facility] [address] [place] [address] * POCT glucose (03/06/2025 6:29 AM CDT) [facility] Glucose, POC 123 70 - 199 mg/dL Comment: For Glucose values <35 mg/dl when Hematocrit is >60 mg/dl,the test may not accurately detect significant hypoglycemia,and testing in the Laboratory should be considered if clinically indicated. POC Performer [id number] [facility] Blood 03/06/2025 6:29 AM CDT 03/06/2025 6:29 AM CDT Chase Keen MD LAB POCT ORDERABLES - DEVICE Fin al Result Performing Organization Address [facility] Co de Phone Number [facility] [address] Department of [employer] [place], [place] [id number] * (ABNORMAL) Hemoglobin and hematocrit (03/06/2025 12:26 AM CDT) Hgb 8.1(L) 13.0 - 17.5 g/dL Hct 25.6(L) 38.9 - 50.3 % [facility] Blood 03/06/2025 12:2 6 AM CDT 03/06/2025 12:43 AM CDT us Maryjo Deshpande MD LAB BLOOD ORDERABLES Final R esult Performing Organization Address [facility] Co de Phone Number [facility] [address] [place] [address] * POCT glucose (03/05/2025 8:39 PM CDT) Glucose, POC 192 70 - 199 mg/dL Comment: For Glucose values <35 mg/dl when Hematocrit is >60 mg/dl,the test may not accurately detect significant hypoglycemia,and testing in the Laboratory should be considered if clinically indicated. POC Performer [id number] [facility] Blood 03/05/2025 8:39 PM CDT 03/05/2025 8:39 PM CDT us Chase Keen MD LAB POCT ORDERABLES - DEVICE Fin al Result Performing Organization Address [facility] Co de Phone Number [facility] [address] [place] [address] * POCT glucose (03/05/2025 4:50 PM CDT) Glucose, POC 147 70 - 199 mg/dL Comment: For Glucose values <35 mg/dl when Hematocrit is >60 mg/dl,the test may not accurately detect significant hypoglycemia,and testing in the Laboratory should be considered if clinically indicated. POC Performer [id number] [facility] Blood 03/05/2025 4:50 PM CDT 03/05/2025 4:50 PM CDT Chase Keen MD LAB POCT ORDERABLES - DEVICE Fin al Result Performing Organization Address [facility] Co de Phone Number [facility] [address] [place] [address] * (ABNORMAL) Hemoglobin and hematocrit (03/05/2025 4:38 PM CDT) Hgb 8.6(L) 13.0 - 17.5 g/dL Hct 27.8(L) 38.9 - 50.3 % [facility] Blood 03/05/2025 4:38 PM CDT 03/05/2025 4:45 PM CDT Maryjo Deshpande MD LAB BLOOD ORDERABLES Final R esult Performing Organization Address [facility] Co de Phone Number [facility] [address] [place] [address] * POCT glucose (03/05/2025 12:32 PM CDT) Glucose, POC 164 70 - 199 mg/dL Comment: For Glucose values <35 mg/dl when Hematocrit is >60 mg/dl,the test may not accurately detect significant hypoglycemia,and testing in the Laboratory should be considered if clinically indicated. POC Performer [id number] [facility] Blood 03/05/2025 12:3 2 PM CDT 03/05/2025 12:32 PM CDT Chase Keen MD LAB POCT ORDERABLES - DEVICE Fin al Result Performing Organization Address [facility] Co de Phone Number [facility] [address] [facility] [place] [address] * POCT glucose (03/05/2025 8:46 AM CDT) Glucose, POC 118 70 - 199 mg/dL Comment: For Glucose values <35 mg/dl when Hematocrit is >60 mg/dl,the test may not accurately detect significant hypoglycemia,and testing in the Laboratory should be considered if clinically indicated. POC Performer [id number] [facility] Blood 03/05/2025 8:46 AM CDT 03/05/2025 8:46 AM CDT Chase Keen MD LAB POCT ORDERABLES - DEVICE Fin al Result Performing Organization Address [facility]/ZIP Co de Phone Number [facility] [address] [facility] [address] * (ABNORMAL) Hemoglobin and hematocrit (03/05/2025 8:45 AM CDT) Hgb 8.7(L) 13.0 - 17.5 g/dL Hct 28.0(L) 38.9 - 50.3 % [facility] Blood 03/05/2025 8:45 AM CDT 03/05/2025 9:06 AM CDT Maryjo Deshpande MD LAB BLOOD ORDERABLES Final R esult Performing Organization Address [facility] Co de Phone Number [facility] [address] Department of [employer] [place], [place] [id number] * POCT glucose (03/05/2025 6:39 AM CDT) Glucose, POC 136 70 - 199 mg/dL Comment: For Glucose values <35 mg/dl when Hematocrit is >60 mg/dl,the test may not accurately detect significant hypoglycemia,and testing in the Laboratory should be considered if clinically indicated. POC Performer [phone] [facility] Blood 03/05/2025 6:39 AM CDT 03/05/2025 6:39 AM CDT us Cathy Bear MD LAB POCT ORDERABLES - DEVICE Fi nal Result Performing Organization Address [facility] Co de Phone Number [facility] [address] [place] [address] * eGFR (03/05/2025 1:12 AM [...] ORDERABLES Final R esult Performing Organization Address [facility] Co de Phone [facility] [address] [place] [address] * (ABNORMAL) Iron profile w/ IBC (03/05/2025 1:12 AM CDT) Pathologist [facility] Iron 11(L) 50 - 150 mcg/dL TIBC 165(L) 250 - 400 mcg/dL [facility] Transferrin saturation 7(L) 20 - 50 % [facility] Blood 03/05/2025 1:12 AM CDT 03/05/2025 2:07 AM CDT us Chase Keen MD LAB BLOOD ORDERABLES Final Resul t Performing Organization Address [facility]/ZIP Co de Phone Number [facility] [address] [employer] [place] [address] * (ABNORMAL) CBC without differential (03/05/2025 1:12 AM CDT) WBC 23.20(H) 3.80 - 9.90 K/cumm Hgb 8.7(L) 13.0 - 17.5 g/dL [facility] Hct 27.7(L) 38.9 - 50.3 % [facility] Plt 365 150 - 400 K/cumm [facility] MPV 11.3 9.1 - 12.3 fL [facility] RBC 2.95(L) 4.30 - 5.80 M/cumm [facility] MCV 93.9 81.3 - 96.4 fL [facility] MCH 29.5 27.1 - 33.3 pg [facility] MCHC 31.4(L) 32.3 - 35.7 g/dL [facility] RDW CV 15.0(H) 11.1 - 14.9 % [facility] RDW SD 50.6(H) 35.7 - 48.1 fL [facility] NRBC abs 0.00 0.00 - 0.01 K/cumm [facility] Blood 03/05/2025 1:12 AM CDT 03/05/2025 2:07 AM CDT us Maryjo Deshpande MD LAB BLOOD ORDERABLES Final R esult [facility] [address] Department [place], [place] [id number] * Magnesium (03/05/2025 1:12 AM CDT) Magnesium 2.0 1.4 - 2.5 mg/dL Blood 03/05/2025 1:12 AM CDT 03/05/2025 2:07 AM CDT us Maryjo Deshpande MD LAB BLOOD ORDERABLES Final R esult Performing Organization Address [facility]/ZIP Co de Phone Number [facility] [address] [place] [address] * (ABNORMAL) Renal function panel (03/05/2025 1:12 AM CDT) [facility] Sodium 138 135 - 145 mmol/L Potassium, pl 4.2 3.3 - 4.9 mmol/L [facility] Chloride 103 97 - 110 mmol/L [facility] CO2 21(L) 22 - 32 mmol/L [facility] Anion gap 14 2 - 15 mmol/L [facility] BUN 53(H) 6 - 25 mg/dL [facility] Creatinine 1.08 0.80 - 1.30 mg/dL [facility] Glucose 146 70 - 199 mg/dL [facility] Comment: Interpretive Data Fasting glucose >/= 126 [...] 2022. Calcium 7.9(L) 8.5 - 10.3 mg/dL [facility] Phosphorus, pl 3.0 2.3 - 4.5 mg/dL [facility] Albumin 2.7(L) 3.5 - 5.0 g/dL [facility] Blood 03/05/2025 1:12 AM CDT 03/05/2025 2:07 AM CDT us Maryjo Deshpande MD LAB BLOOD ORDERABLES Final R esult Performing Organization Address [facility]/ZIP Co de Phone Number [facility] [address] [place] [address] * POCT glucose (03/04/2025 9:32 PM CDT) Glucose, POC 148 70 - 199 mg/dL Comment: For Glucose values <35 mg/dl when Hematocrit is >60 mg/dl,the test may not accurately detect significant hypoglycemia,and testing in the Laboratory should be considered if clinically indicated. POC Performer [id number] [facility] Blood 03/04/2025 9:32 PM CDT 03/04/2025 9:32 PM CDT us Cathy Bear MD LAB POCT ORDERABLES - DEVICE Fi nal Result Performing Organization Address [facility] Co de Phone Number [facility] [address] [facility] [place] [address] * POCT glucose (03/04/2025 6:17 PM CDT) Glucose, POC 150 70 - 199 mg/dL Comment: For Glucose values <35 mg/dl when Hematocrit is >60 mg/dl,the test may not accurately detect significant hypoglycemia,and testing in the Laboratory should be considered if clinically indicated. POC Performer [id number] [facility] Blood 03/04/2025 6:17 PM CDT 03/04/2025 6:17 PM CDT us Cathy Bear MD LAB POCT ORDERABLES - DEVICE Fi nal Result [facility] [address] [facility] [place] [address] * Sepsis Lactate w/ Reflex (03/04/2025 12:56 PM CDT) Sepsis Lactate 1.7 0.7 - 2.0 mmol/L Blood 03/04/2025 12:5 6 PM CDT 03/04/2025 1:08 PM CDT Suzette MCGUIRE LAB BLOOD ORDERABLES Final Result Performing Organization Address [facility]/ZIP Co de Phone Number [facility] [address] [place] [address] * (ABNORMAL) eGFR (03/04/2025 12:56 PM CDT) [...] Suzette MCGUIRE LAB BLOOD ORDERABLES Final Result [facility] [address] Department [employer] [place], [place] [id number] * (ABNORMAL) Hemoglobin and hematocrit (03/04/2025 12:56 PM CDT) Hgb 8.9(L) 13.0 - 17.5 g/dL Hct 28.4(L) 38.9 - 50.3 % [facility] Blood 03/04/2025 12:5 6 PM CDT 03/04/2025 1:15 PM CDT Maryjo Deshpande MD LAB BLOOD ORDERABLES Final R esult [facility] [address] [place] [address] * (ABNORMAL) Comprehensive metabolic panel (03/04/2025 12:56 PM CDT) Sodium 137 135 - 145 mmol/L Potassium, pl 4.2 3.3 - 4.9 mmol/L [facility] Chloride 103 97 - 110 mmol/L [facility] CO2 20(L) 22 - 32 mmol/L [facility] Anion gap 14 2 - 15 mmol/L [facility] BUN 65(H) 6 - 25 mg/dL [facility] Creatinine 1.36(H) 0.80 - 1.30 mg/dL [facility] Glucose 213(H) 70 - 199 mg/dL [facility] Comment: Interpretive Data Fasting glucose >/= 126 [...] 2022. Calcium 8.0(L) 8.5 - 10.3 mg/dL [facility] Bilirubin, total 0.5 0.1 - 1.2 mg/dL [facility] Protein, pl 6.0(L) 6.5 - 8.5 g/dL [facility] Albumin 2.7(L) 3.5 - 5.0 g/dL [facility] Alk phos 80 40 - 130 Units/L [facility] ALT 31 7 - 55 Units/L [facility] AST 42 10 - 50 Units/L [facility] Blood 03/04/2025 12:5 6 PM CDT 03/04/2025 1:12 PM CDT us Suzette MCGUIRE LAB BLOOD ORDERABLES Final Result Performing Organization Address [facility]/ZIP Co de Phone Number [facility] [address] [place] [address] * (ABNORMAL) POCT glucose (03/04/2025 12:32 PM CDT) Glucose, POC 243(H) 70 - 199 mg/dL Comment: For Glucose values <35 mg/dl when Hematocrit is >60 mg/dl,the test may not accurately detect significant hypoglycemia,and testing in the Laboratory should be considered if clinically indicated. POC Performer [id number] [facility] Blood 03/04/2025 12:3 2 PM CDT 03/04/2025 12:32 PM CDT us Cathy Bear MD LAB POCT ORDERABLES - DEVICE Fi nal Result Performing Organization Address [facility] Co de Phone Number [facility] [address] [place] [address] * (ABNORMAL) Hemoglobin and hematocrit (03/04/2025 7:54 AM CDT) Hgb 7.7(L) 13.0 - 17.5 g/dL Hct 25.4(L) 38.9 - 50.3 % [facility] Blood 03/04/2025 7:54 AM CDT 03/04/2025 8:02 AM CDT Maryjo Deshpande MD LAB BLOOD ORDERABLES Final R esult Performing Organization Address [facility]/ZIP Co de Phone Number [facility] [address] Department of [employer] [place], [place] [id number] * POCT glucose (03/04/2025 7:53 AM CDT) Glucose, POC 131 70 - 199 mg/dL Comment: For Glucose values <35 mg/dl when Hematocrit is >60 mg/dl,the test may not accurately detect significant hypoglycemia,and testing in the Laboratory should be considered if clinically indicated. POC Performer [id number] [facility] Blood 03/04/2025 7:53 AM CDT 03/04/2025 7:53 AM CDT Maryjo Deshpande MD LAB POCT ORDERABLES - DEVICE Final Result Performing Organization Address [facility] Co de Phone Number [facility] [address] [facility] [place] [address] * POCT glucose (03/04/2025 4:30 AM CDT) Glucose, POC 131 70 - 199 mg/dL Comment: For Glucose values <35 mg/dl when Hematocrit is >60 mg/dl,the test may not accurately detect significant hypoglycemia,and testing in the Laboratory should be considered if clinically indicated. POC Performer [id number] [facility] Blood 03/04/2025 4:30 AM CDT 03/04/2025 4:30 AM CDT Maryjo Deshpande MD LAB POCT ORDERABLES - DEVICE Final Result Performing Organization Address [facility] Co de Phone Number [facility] [address] [facility] [place] [address] * (ABNORMAL) eGFR (03/04/2025 12:55 AM CDT) [...] MD LAB BLOOD ORDERABLES Final R esult [facility] [address] [place] [address] * (ABNORMAL) CBC without differential (03/04/2025 12:55 AM CDT) WBC 14.59(H) 3.80 - 9.90 K/cumm Hgb 7.5(L) 13.0 - 17.5 g/dL [facility] Hct 23.9(L) 38.9 - 50.3 % [facility] Plt 317 150 - 400 K/cumm [facility] MPV 11.4 9.1 - 12.3 fL [facility] RBC 2.56(L) 4.30 - 5.80 M/cumm [facility] MCV 93.4 81.3 - 96.4 fL [facility] MCH 29.3 27.1 - 33.3 pg [facility] MCHC 31.4(L) 32.3 - 35.7 g/dL [facility] RDW CV 14.8 11.1 - 14.9 % [facility] RDW SD 50.7(H) 35.7 - 48.1 fL [facility] NRBC abs 0.02(H) 0.00 - 0.01 K/cumm [facility] Blood 03/04/2025 12:5 5 AM CDT 03/04/2025 1:01 AM CDT Maryjo Deshpande MD LAB BLOOD ORDERABLES Final R esult Performing Organization Address [facility] Co de Phone Number [facility] [address] [place] [facility] [place] [address] * Phosphorus (03/04/2025 12:55 AM CDT) Phosphorus, pl 2.5 2.3 - 4.5 mg/dL Blood 03/04/2025 12:5 5 AM CDT 03/04/2025 1:01 AM CDT Maryjo Deshpande MD LAB BLOOD ORDERABLES Final R esult Performing Organization Address [facility] Co de Phone Number [facility] [address] [place] [facility] [place] [address] * Magnesium (03/04/2025 12:55 AM CDT) Magnesium 2.3 1.4 - 2.5 mg/dL Blood 03/04/2025 12:5 5 AM CDT 03/04/2025 1:01 AM CDT Maryjo Deshpande MD LAB BLOOD ORDERABLES Final R esult Performing Organization Address [facility] Co de Phone Number [facility] [address] [place] [facility] [place] [address] * Bilirubin, direct (03/04/2025 12:55 AM CDT) Bilirubin, direct 0.2 0.1 - 0.3 mg/dL Blood 03/04/2025 12:5 5 AM CDT 03/04/2025 1:01 AM CDT Maryjo Deshpande MD LAB BLOOD ORDERABLES Final R esult [facility] [address] [place] [address] * (ABNORMAL) Comprehensive metabolic panel (03/04/2025 12:55 AM CDT) Sodium 139 135 - 145 mmol/L Potassium, pl 3.5 3.3 - 4.9 mmol/L [facility] Chloride 104 97 - 110 mmol/L [facility] CO2 21(L) 22 - 32 mmol/L [facility] Anion gap 14 2 - 15 mmol/L [facility] BUN 76(H) 6 - 25 mg/dL [facility] Creatinine 1.53(H) 0.80 - 1.30 mg/dL [facility] Glucose 122 70 - 199 mg/dL [facility] Comment: Interpretive Data Fasting glucose >/= 126 [...] 2022. Calcium 7.6(L) 8.5 - 10.3 mg/dL [facility] Bilirubin, total 0.5 0.1 - 1.2 mg/dL [facility] Protein, pl 5.8(L) 6.5 - 8.5 g/dL [facility] Albumin 2.7(L) 3.5 - 5.0 g/dL [facility] Alk phos 71 40 - 130 Units/L [facility] ALT 29 7 - 55 Units/L [facility] AST 52(H) 10 - 50 Units/L [facility] Blood 03/04/2025 12:5 5 AM CDT 03/04/2025 1:01 AM CDT Maryjo Deshpande MD LAB BLOOD ORDERABLES Final R esult Performing Organization Address [facility] Co de Phone Number [facility] [address] [facility] [place] [address] * POCT glucose (03/04/2025 12:34 AM CDT) Glucose, POC 127 70 - 199 mg/dL Comment: For Glucose values <35 mg/dl when Hematocrit is >60 mg/dl,the test may not accurately detect significant hypoglycemia,and testing in the Laboratory should be considered if clinically indicated. POC Performer [id number] [facility] Blood 03/04/2025 12:3 4 AM CDT 03/04/2025 12:34 AM CDT Maryjo Deshpande MD LAB POCT ORDERABLES - DEVICE Final Result Performing Organization Address [facility] de Phone Number [facility] [address] [facility] [place] [address] * POCT glucose (03/03/2025 8:29 PM CDT) Glucose, POC 155 70 - 199 mg/dL Comment: For Glucose values <35 mg/dl when Hematocrit is >60 mg/dl,the test may not accurately detect significant hypoglycemia,and testing in the Laboratory should be considered if clinically indicated. POC Performer [id number] [facility] Blood 03/03/2025 8:29 PM CDT 03/03/2025 8:29 PM CDT Maryjo Deshpande MD LAB POCT ORDERABLES - DEVICE Final Result Performing Organization Address [facility] de Phone Number [facility] [address] [facility] [employer] [place], [place] [id number] * (ABNORMAL) Hemoglobin and hematocrit (03/03/2025 5:29 PM CDT) Hgb 7.8(L) 13.0 - 17.5 g/dL Hct 25.2(L) 38.9 - 50.3 % [facility] Blood 03/03/2025 5:29 PM CDT 03/03/2025 5:32 PM CDT Maryjo Deshpande MD LAB BLOOD ORDERABLES Final R esult Performing Organization Address [facility] Co de Phone Number [facility] [address] [facility] [place] [address] * POCT glucose (03/03/2025 5:15 PM CDT) Glucose, POC 156 70 - 199 mg/dL Comment: For Glucose values <35 mg/dl when Hematocrit is >60 mg/dl,the test may not accurately detect significant hypoglycemia,and testing in the Laboratory should be considered if clinically indicated. POC Performer [id number] [facility] Blood 03/03/2025 5:15 PM CDT 03/03/2025 5:15 PM CDT Maryjo Deshpande MD LAB POCT ORDERABLES - DEVICE Final Result Performing Organization Address [facility] de Phone Number [facility] [address] [facility] [place] [address] * (ABNORMAL) POCT glucose (03/03/2025 12:13 PM CDT) Glucose, POC 265(H) 70 - 199 mg/dL Comment: For Glucose values <35 mg/dl when Hematocrit is >60 mg/dl,the test may not accurately detect significant hypoglycemia,and testing in the Laboratory should be considered if clinically indicated. POC Performer [id number] [facility] Blood 03/03/2025 12:1 3 PM CDT 03/03/2025 12:13 PM CDT Maryjo Deshpande MD LAB POCT ORDERABLES - DEVICE Final Result Performing Organization Address [facility]/ZIP Co de Phone Number [facility] [address] [place] [address] * (ABNORMAL) Hemoglobin and hematocrit (03/03/2025 9:10 AM CDT) [facility] Hgb 8.0(L) 13.0 - 17.5 g/dL Hct 25.7(L) 38.9 - 50.3 % [facility] Blood 03/03/2025 9:10 AM CDT 03/03/2025 9:25 AM CDT Maryjo Deshpande MD LAB BLOOD ORDERABLES Final R esult Performing Organization Address [facility] Co de Phone Number [facility] [address] [place] [address] * POCT glucose (03/03/2025 8:05 AM CDT) [facility] Glucose, POC 143 70 - 199 mg/dL Comment: For Glucose values <35 mg/dl when Hematocrit is >60 mg/dl,the test may not accurately detect significant hypoglycemia,and testing in the Laboratory should be considered if clinically indicated. POC Performer [id number] [facility] Blood 03/03/2025 8:05 AM CDT 03/03/2025 8:05 AM CDT Maryjo Deshpande MD LAB POCT ORDERABLES - DEVICE Final Result Performing Organization Address City/[facility]/ZIP Co de Phone Number [facility] [address] [place] [address] * (ABNORMAL) eGFR (03/03/2025 5:13 AM CDT) [facility] eGFR 35(L) >=60 mL/min/1. 73 m2 Comment: [...] MD LAB BLOOD ORDERABLES Final R esult [facility] [address] [place] [address] * (ABNORMAL) CBC without differential (03/03/2025 5:13 AM CDT) WBC 14.06(H) 3.80 - 9.90 K/cumm Hgb 7.5(L) 13.0 - 17.5 g/dL [facility] Hct 23.6(L) 38.9 - 50.3 % [facility] Plt 296 150 - 400 K/cumm [facility] MPV 12.1 9.1 - 12.3 fL [facility] RBC 2.57(L) 4.30 - 5.80 M/cumm [facility] MCV 91.8 81.3 - 96.4 fL [facility] MCH 29.2 27.1 - 33.3 pg [facility] MCHC 31.8(L) 32.3 - 35.7 g/dL [facility] RDW CV 14.9 11.1 - 14.9 % [facility] RDW SD 49.9(H) 35.7 - 48.1 fL [facility] NRBC abs 0.00 0.00 - 0.01 K/cumm [facility] Blood 03/03/2025 5:13 AM CDT 03/03/2025 5:18 AM CDT Maryjo Deshpande MD LAB BLOOD ORDERABLES Final R esult Performing Organization Address [facility] Co de Phone Number [facility] [address] [facility] [place] [address] * (ABNORMAL) Magnesium (03/03/2025 5:13 AM CDT) Magnesium 2.6(H) 1.4 - 2.5 mg/dL Blood 03/03/2025 5:13 AM CDT 03/03/2025 5:19 AM CDT Maryjo Deshpande MD LAB BLOOD ORDERABLES Final R esult Performing Organization Address [facility] de Phone Number [facility] [address] [facility] [place] [address] * (ABNORMAL) Renal function panel (03/03/2025 5:13 AM CDT) Pathologist [facility] Sodium 141 135 - 145 mmol/L Potassium, pl 3.7 3.3 - 4.9 mmol/L [facility] Chloride 104 97 - 110 mmol/L [facility] CO2 21(L) 22 - 32 mmol/L [facility] Anion gap 16(H) 2 - 15 mmol/L [facility] BUN 97(H) 6 - 25 mg/dL [facility] Creatinine 1.98(H) 0.80 - 1.30 mg/dL [facility] Glucose 127 70 - 199 mg/dL [facility] Comment: Interpretive Data Fasting glucose >/= 126 [...] 2022. Calcium 8.1(L) 8.5 - 10.3 mg/dL [facility] Phosphorus, pl 3.6 2.3 - 4.5 mg/dL [facility] Albumin 2.8(L) 3.5 - 5.0 g/dL [facility] Blood 03/03/2025 5:13 AM CDT 03/03/2025 5:19 AM CDT Maryjo Deshpande MD LAB BLOOD ORDERABLES Final R esult Performing Organization Address [facility] Co de Phone Number [facility] [address] Department [place], [place] [phone] * POCT glucose (03/03/2025 5:11 AM CDT) Glucose, POC 135 70 - 199 mg/dL Comment: For Glucose values <35 mg/dl when Hematocrit is >60 mg/dl,the test may not accurately detect significant hypoglycemia,and testing in the Laboratory should be considered if clinically indicated. POC Performer [id number] [facility] Blood 03/03/2025 5:11 AM CDT 03/03/2025 5:11 AM CDT Maryjo Deshpande MD LAB POCT ORDERABLES - DEVICE Final Result Performing Organization Address City/[facility]/ZIP Co de Phone Number [facility] [address] Department of [employer] [place], [place] [phone] * (ABNORMAL) Hemoglobin and hematocrit (03/02/2025 11:36 PM CDT) Hgb 7.3(L) 13.0 - 17.5 g/dL Hct 22.8(L) 38.9 - 50.3 % [facility] Blood 03/02/2025 11:3 6 PM CDT 03/02/2025 11:44 PM CDT Maryjo Deshpande MD LAB BLOOD ORDERABLES Final R esult Performing Organization Address [facility] Co de Phone Number [facility] [address] [facility] [place] [address] * POCT glucose (03/02/2025 11:35 PM CDT) Glucose, POC 146 70 - 199 mg/dL Comment: For Glucose values <35 mg/dl when Hematocrit is >60 mg/dl,the test may not accurately detect significant hypoglycemia,and testing in the Laboratory should be considered if clinically indicated. POC Performer [id number] [facility] Blood 03/02/2025 11:3 5 PM CDT 03/02/2025 11:35 PM CDT us Maryjo Deshpande MD LAB POCT ORDERABLES - DEVICE Final Result Performing Organization Address [facility] Co de Phone Number [facility] [address] [place] [address] * POCT glucose (03/02/2025 7:57 PM CDT) Glucose, POC 189 70 - 199 mg/dL Comment: For Glucose values <35 mg/dl when Hematocrit is >60 mg/dl,the test may not accurately detect significant hypoglycemia,and testing in the Laboratory should be considered if clinically indicated. POC Performer [id number] [facility] Blood 03/02/2025 7:57 PM CDT 03/02/2025 7:57 PM CDT Maryjo Deshpande MD LAB POCT ORDERABLES - DEVICE Final Result Performing Organization Address [facility] Co de Phone Number [facility] [address] [place] [address] * (ABNORMAL) Hemoglobin and hematocrit (03/02/2025 6:05 PM CDT) Hgb 7.8(L) 13.0 - 17.5 g/dL Hct 25.2(L) 38.9 - 50.3 % [facility] Blood 03/02/2025 6:05 PM CDT 03/02/2025 6:10 PM CDT us Maryjo Deshpande MD LAB BLOOD ORDERABLES Final R esult Performing Organization Address [facility] Co de Phone Number [facility] [address] [place] [address] * POCT glucose (03/02/2025 5:08 PM CDT) [facility] Glucose, POC 150 70 - 199 mg/dL Comment: For Glucose values <35 mg/dl when Hematocrit is >60 mg/dl,the test may not accurately detect significant hypoglycemia,and testing in the Laboratory should be considered if clinically indicated. POC Performer [id number] [facility] Blood 03/02/2025 5:08 PM CDT 03/02/2025 5:08 PM CDT us Maryjo Deshpande MD LAB POCT ORDERABLES - DEVICE Final Result Performing Organization Address [facility] Co de Phone Number [facility] [address] Department [employer] [place], [place] [phone] * Lactate (03/02/2025 2:26 PM CDT) [facility] Lactate 1.0 0.7 - 2.0 mmol/L Blood 03/02/2025 2:26 PM CDT 03/02/2025 2:31 PM CDT Rehana [place] DO LAB BLOOD ORDERABLES F inal Result Performing Organization Address [facility] Co de Phone Number [facility] [address] [place] [address] * (ABNORMAL) Hemoglobin and hematocrit (03/02/2025 2:26 PM CDT) Hgb 7.3(L) 13.0 - 17.5 g/dL Hct 22.8(L) 38.9 - 50.3 % [facility] Blood 03/02/2025 2:26 PM CDT 03/02/2025 2:35 PM CDT us Maryjo Deshpande MD LAB BLOOD ORDERABLES Final R esult [facility] [address] Department [place] [address] * XR Chest 1 View (03/02/2025 2:09 [...] Jones PA Authorized by: Cheng Jones PA [place] Protocol: RN Notified of Procedure: yes Informed consent: Risks, benefits, alternatives discussed and patient/cash application representative/guardian agrees and accepts Patient's stated name/ [...] and matched to patient identification: n/a Result [facility] Cheng [facility]/BEDSIDE ORDERABLES F inal Result * POCT glucose (03/02/2025 12:25 PM CDT) Glucose, POC 146 70 - 199 mg/dL Comment: For Glucose values <35 mg/dl when Hematocrit is >60 mg/dl,the test may not accurately detect significant hypoglycemia,and testing in the Laboratory should be considered if clinically indicated. POC Performer [id number] [facility] Blood 03/02/2025 12:2 5 PM CDT 03/02/2025 12:25 PM CDT Maryjo Deshpande MD LAB POCT ORDERABLES - DEVICE Final Result Performing Organization Address [facility] Co de Phone Number [facility] [address] [place] [address] * Lactate (03/02/2025 8:33 AM CDT) Pathologist [facility] Lactate See Comment 0.7 - 2.0 Comment:Test results inaccur ately filed to this patient's record. Test will be credited. Specimen too old to run due to laboratory mechanical error. Recollect requested and RN informed 03/02/2025 09:57:34 CDT [id number] Blood 03/02/2025 8:33 AM CDT 03/02/2025 8:38 AM CDT Rehana [place] DO LAB BLOOD ORDERABLES F inal Result Performing Organization Address [facility] Co de Phone Number [facility] [address] [place] [address] * (ABNORMAL) Blood smear review (03/02/2025 8:33 AM CDT) RBC morphology Present(A) Hypochromasia 3-7/HPF(A) [facility] Anisocytosis Slight(A) [facility] Elliptocytes 3-7/HPF(A) [facility] Platelet estimate Adequate [facility] Blood 03/02/2025 8:33 AM CDT 03/02/2025 8:38 AM CDT Rehana [place] DO LAB BLOOD ORDERABLES F inal Result Performing Organization Address [facility] Co de Phone Number [facility] [address] [place] [address] * (ABNORMAL) eGFR (03/02/2025 8:33 AM CDT) Pathologist [facility] eGFR 28(L) >=60 mL/min/1. 73 m2 Comment: [...] ORDERABLES F inal Result Performing Organization Address [facility] Co de Phone Number [facility] [address] [place] [address] * (ABNORMAL) Differential, auto (03/02/2025 8:33 AM CDT) Pathologist [facility] Neutrophil abs 12.41(H) 1.50 - 6.50 K/cumm Imm gran abs 0.18(H) 0.00 - 0.10 K/cumm [facility] Lymphocyte abs 1.79 0.80 - 3.30 K/cumm [facility] Monocyte abs 1.70(H) 0.20 - 0.80 K/cumm [facility] Eosinophil abs 0.03 0.00 - 0.50 K/cumm [facility] Basophil abs 0.04 0.00 - 0.10 K/cumm [facility] Neutrophil pct 76.9 % [facility] Comment: Interpretive Data Percent cell count reference ranges are not reported, since discordance with absolute values may lead to misinterpretation of CBC data. Current Interpretive Data was last revised on 2018. Imm gran pct 1.1 % [facility] Comment: Interpretive Data Percent cell count reference ranges are not reported, since discordance with absolute values may lead to misinterpretation of CBC data. Current Interpretive Data was last revised on 2018. Lymphocyte pct 11.1 % [facility] Comment: Interpretive Data Percent cell count reference ranges are not reported, since discordance with absolute values may lead to misinterpretation of CBC data. Current Interpretive Data was last revised on 2018. Monocyte pct 10.5 % [facility] Comment: Interpretive Data Percent cell count reference ranges are not reported, since discordance with absolute values may lead to misinterpretation of CBC data. Current Interpretive Data was last revised on 2018. Eosinophil pct 0.2 % [facility] Comment: Interpretive Data Percent cell count reference ranges are not reported, since discordance with absolute values may lead to misinterpretation of CBC data. Current Interpretive Data was last revised on 2018. Basophil pct 0.2 % [facility] Comment: Interpretive Data Percent cell count reference ranges are not reported, since discordance with absolute values may lead to misinterpretation of CBC data. Current Interpretive Data was last revised on 2018. Blood 03/02/2025 8:33 AM CDT 03/02/2025 8:38 AM CDT us Rehana [place] DO LAB BLOOD ORDERABLES F inal Result [facility] [address] [place] [address] * (ABNORMAL) CBC with auto differential (03/02/2025 8:33 AM CDT) [facility] WBC 16.15(H) 3.80 - 9.90 K/cumm Hgb 7.7(L) 13.0 - 17.5 g/dL [facility] Hct 25.1(L) 38.9 - 50.3 % [facility] Plt 240 150 - 400 K/cumm [facility] Comment:Clumped platelets. P latelet estimate Adequate. Per Gayatri Arshad RN, Platelet confirmation doesn't need to be ordered. MPV 12.9(H) 9.1 - 12.3 fL [facility] RBC 2.72(L) 4.30 - 5.80 M/cumm [facility] MCV 92.3 81.3 - 96.4 fL [facility] MCH 28.3 27.1 - 33.3 pg [facility] MCHC 30.7(L) 32.3 - 35.7 g/dL [facility] RDW CV 15.0(H) 11.1 - 14.9 % [facility] RDW SD 50.1(H) 35.7 - 48.1 fL [facility] NRBC abs 0.00 0.00 - 0.01 K/cumm [facility] Blood 03/02/2025 8:33 AM CDT 03/02/2025 8:38 AM CDT us Rehana [place] DO LAB BLOOD ORDERABLES F inal Result [facility] [address] [place] [address] * (ABNORMAL) Protime-INR (03/02/2025 8:33 AM CDT) [facility] PT 17.8(H) 9.7 - 13.0 sec INR 1.63(H) 0.90 - 1.20 [facility] Comment: Interpretive data Oral anticoagulant therapeutic ranges: Venous thromboembolism prophylaxis or treatment: 2.0-3.0 CARDIOLOGY Standard range: 2.0-3.0 High-intensity range: 2.5-3.5 Refer to indication-specific guidelines for appropriate target ranges for prosthetic heart valve replacement. Current interpretive data was last revised on 2019. Blood 03/02/2025 8:33 AM CDT 03/02/2025 8:37 AM CDT Rehana [employer] LAB BLOOD ORDERABLES F inal Result Performing Organization Address [facility]/ZIP Co de Phone Number [facility] [address] [facility] [place] [address] * (ABNORMAL) Magnesium (03/02/2025 8:33 AM CDT) Magnesium 2.6(H) 1.4 - 2.5 mg/dL Blood 03/02/2025 8:33 AM CDT 03/02/2025 8:37 AM CDT [employer] LAB BLOOD ORDERABLES F inal Result Performing Organization Address [facility] Co de Phone Number [facility] [address] [facility] [place] [address] * (ABNORMAL) Blood gas, venous (03/02/2025 8:33 AM CDT) pH, Venous 7.40 7.32 - 7.43 PCO2, Venous 33(L) 40 - 50 mmHg [facility] PO2, Venous 163 mmHg [facility] Comment: Interpretive Data No Reference Range Established Current Interpretive Data was last revised on 2018. HCO3 Venous, Calculated 20 20 - 30 mmol/L [facility] BE, venous -4 mmol/L [facility] Comment: nterpretive Data No Reference Range Established Current Interpretive Data was last revised on 2018. Blood 03/02/2025 8:33 AM CDT 03/02/2025 8:38 AM CDT Rehana Kaylan Barks DO LAB BLOOD ORDERABLES F inal Result [facility] [address] [place] [address] * (ABNORMAL) Comprehensive metabolic panel (03/02/2025 8:33 AM CDT) Sodium 140 135 - 145 mmol/L Potassium, pl 3.9 3.3 - 4.9 mmol/L [facility] Chloride 104 97 - 110 mmol/L [facility] CO2 17(L) 22 - 32 mmol/L [facility] Anion gap 19(H) 2 - 15 mmol/L [facility] BUN 106(H) 6 - 25 mg/dL [facility] Creatinine 2.38(H) 0.80 - 1.30 mg/dL [facility] Glucose 98 70 - 199 mg/dL [facility] Comment: Interpretive Data Fasting glucose >/= 126 [...] 2022. Calcium 7.8(L) 8.5 - 10.3 mg/dL [facility] Bilirubin, total 0.4 0.1 - 1.2 mg/dL [facility] Protein, pl 5.8(L) 6.5 - 8.5 g/dL [facility] Albumin 2.6(L) 3.5 - 5.0 g/dL [facility] Alk phos 62 40 - 130 Units/L [facility] ALT 13 7 - 55 Units/L [facility] AST 37 10 - 50 Units/L [facility] Comment:Slightly Hemolyzed S pecimen Blood 03/02/2025 8:33 AM CDT 03/02/2025 8:37 AM CDT Rehana [place] DO LAB BLOOD ORDERABLES F inal Result Performing Organization Address [facility] Co de Phone Number [facility] [address] [facility] [employer] [place], [place] [id number] * POCT glucose (03/02/2025 8:19 AM CDT) Glucose, POC 117 70 - 199 mg/dL Comment: For Glucose values <35 mg/dl when Hematocrit is >60 mg/dl,the test may not accurately detect significant hypoglycemia,and testing in the Laboratory should be considered if clinically indicated. POC Performer [id number] [facility] Blood 03/02/2025 8:19 AM CDT 03/02/2025 8:19 AM CDT Maryjo Deshpande MD LAB POCT ORDERABLES - DEVICE Final Result Performing Organization Address [facility] Co de Phone Number [facility] [address] [place] [address] * POCT glucose (03/02/2025 4:09 AM CDT) Glucose, POC 125 70 - 199 mg/dL Comment: For Glucose values <35 mg/dl when Hematocrit is >60 mg/dl,the test may not accurately detect significant hypoglycemia,and testing in the Laboratory should be considered if clinically indicated. POC Performer [id number] [facility] Blood 03/02/2025 4:09 AM CDT 03/02/2025 4:09 AM CDT Rehana [place] DO LAB POCT ORDERABLES - DEVICE Final Result Performing Organization Address [facility] Co de Phone Number [facility] [address] Department [employer] [place], [place] [phone] * XR Chest 1 View (03/02/2025 3:53 [...] K/cumm Hgb 7.9(L) 13.0 - 17.5 g/dL [facility] Hct 24.6(L) 38.9 - 50.3 % [facility] Plt 274 150 - 400 K/cumm [facility] MPV 12.7(H) 9.1 - 12.3 fL [facility] RBC 2.73(L) 4.30 - 5.80 M/cumm [facility] MCV 90.1 81.3 - 96.4 fL [facility] MCH 28.9 27.1 - 33.3 pg [facility] MCHC 32.1(L) 32.3 - 35.7 g/dL [facility] RDW CV 14.8 11.1 - 14.9 % [facility] RDW SD 48.9(H) 35.7 - 48.1 fL [facility] NRBC abs 0.00 0.00 - 0.01 K/cumm [facility] Blood 03/02/2025 12:0 8 AM CDT 03/02/2025 12:11 AM CDT Narrative [facility] - 03/02/2025 12:18 AM CDT While on heparin infusion us Rehana Kaylan Mackeys DO LAB BLOOD ORDERABLES F inal Result Performing Organization Address [facility]/ZIP Co de Phone Number [facility] [address] [place] [address] * POCT glucose (03/02/2025 12:03 AM CDT) Glucose, POC 125 70 - 199 mg/dL Comment: For Glucose values <35 mg/dl when Hematocrit is >60 mg/dl,the test may not accurately detect significant hypoglycemia,and testing in the Laboratory should be considered if clinically indicated. POC Performer [id number] [facility] Blood 03/02/2025 12:0 3 AM CDT 03/02/2025 12:03 AM CDT us Rehana [place] DO LAB POCT ORDERABLES - DEVICE Final Result Performing Organization Address [facility] Co de Phone Number [facility] [address] [place] [address] * Lactate (03/01/2025 8:07 PM CDT) Lactate 0.9 0.7 - 2.0 mmol/L Blood 03/01/2025 8:07 PM CDT 03/01/2025 8:11 PM CDT Rehanababak Shipley DO LAB BLOOD ORDERABLES F inal Result Performing Organization Address City/[facility]/ZIP Co de Phone Number [facility] [address] [place] [address] * (ABNORMAL) Hemoglobin and hematocrit (03/01/2025 8:07 PM CDT) [facility] Hgb 7.8(L) 13.0 - 17.5 g/dL Hct 24.6(L) 38.9 - 50.3 % [facility] Blood 03/01/2025 8:07 PM CDT 03/01/2025 8:13 PM CDT Rehanababak Shipley DO LAB BLOOD ORDERABLES F inal Result Performing Organization Address [facility]/ZIP Co de Phone Number [facility] [address] [facility] [place] [address] * POCT glucose (03/01/2025 8:05 PM CDT) [facility] Glucose, POC 112 70 - 199 mg/dL Comment: For Glucose values <35 mg/dl when Hematocrit is >60 mg/dl,the test may not accurately detect significant hypoglycemia,and testing in the Laboratory should be considered if clinically indicated. POC Performer [id number] [facility] Blood 03/01/2025 8:05 PM CDT 03/01/2025 8:05 PM CDT Rehana Shipley [facility] POCT ORDERABLES - DEVICE Final Result Performing Organization Address City/[facility]/ZIP Co de Phone Number [facility] [address] [facility] [place] [address] * (ABNORMAL) Hemoglobin and hematocrit (03/01/2025 4:26 PM CDT) [facility] Hgb 8.8(L) 13.0 - 17.5 g/dL Hct 28.2(L) 38.9 - 50.3 % [facility] Blood 03/01/2025 4:26 PM CDT 03/01/2025 4:26 PM CDT Rehana Shipley DO LAB BLOOD ORDERABLES F inal Result Performing Organization Address [facility] de Phone Number [facility] [address] [facility] [place] [address] * aPTT (03/01/2025 4:26 PM CDT) aPTT 30 28 - 38 sec Comment: Interpretive Data Heparin therapeutic range: 66.0 - 100.0 seconds. Range based on correlation with therapeutic heparin activity range of 0.3 - 0.7 Units/mL. Current interpretive data was last revised on 2023. Blood 03/01/2025 4:26 PM CDT 03/01/2025 4:26 PM CDT Rehana Shipley [employer] LAB BLOOD ORDERABLES F inal Result Performing Organization Address [facility] de Phone Number [facility] [address] [facility] [place] [address] * (ABNORMAL) Protime-INR (03/01/2025 4:26 PM CDT) PT 16.4(H) 9.7 - 13.0 sec INR 1.51(H) 0.90 - 1.[address] Comment: Interpretive data Oral anticoagulant [...] ORDERABLES F inal Result Performing Organization Address [facility] de Phone Number [facility] [address] [place] [address] * POCT glucose (03/01/2025 4:17 PM CDT) Glucose, POC 120 70 - 199 mg/dL Comment: For Glucose values <35 mg/dl when Hematocrit is >60 mg/dl,the test may not accurately detect significant hypoglycemia,and testing in the Laboratory should be considered if clinically indicated. POC Performer [phone] [facility] Blood 03/01/2025 4:17 PM CDT 03/01/2025 4:17 PM CDT Rehana Shipley DO LAB POCT ORDERABLES - DEVICE Final Result Performing Organization Address [facility]/ZIP Co de Phone Number [facility] [address] [place] [address] * (ABNORMAL) aPTT (03/01/2025 1:45 PM CDT) Pathologist [facility] aPTT 77(H) 28 - 38 sec Comment: Interpretive Data Heparin therapeutic range: 66.0 - 100.0 seconds. Range based on correlation with therapeutic heparin activity range of 0.3 - 0.7 Units/mL. Current interpretive data was last revised on 2023. Blood 03/01/2025 1:45 PM CDT 03/01/2025 2:13 PM CDT Rehana Shipley DO LAB BLOOD ORDERABLES F inal Result [facility] [address] [facility] [place] [address] * (ABNORMAL) Protime-INR (03/01/2025 1:45 PM CDT) PT 16.7(H) 9.7 - 13.0 sec INR 1.53(H) 0.90 - 1.20 [facility] Comment: Interpretive data Oral anticoagulant therapeutic ranges: Venous thromboembolism prophylaxis or treatment: 2.0-3.0 CARDIOLOGY Standard range: 2.0-3.0 High-intensity range: 2.5-3.5 Refer to indication-specific guidelines for appropriate target ranges for prosthetic heart valve replacement. Current interpretive data was last revised on 2019. Blood 03/01/2025 1:45 PM CDT 03/01/2025 2:13 PM CDT Rehana Kaylan Shipley LAB BLOOD ORDERABLES F inal Result Performing Organization Address [facility] Co de Phone Number [facility] [address] [place] [address] * Type and screen (03/01/2025 1:45 PM CDT) Pathologist [facility] ABO Rh B Positive Esme, indirect Negative [facility] Blood 03/01/2025 1:45 PM CDT 03/01/2025 2:11 PM CDT Narrative [facility] - 03/01/2025 2:52 PM CDT Has the patient had Daratumumab or Isatuximab in the past 6 months?->Unknown Rehana Shipley [facility] BLOOD BANK TEST OR DERABLES Final Result Performing Organization Address [facility] Co de Phone Number [facility] [address] Department [place] [employer] [place], [place] [id number] * Prepare RBC: 1 Units (03/01/2025 1:37 PM CDT) Product code [id number] Unit Number [id number] [facility] Product Blood Type BPOS [facility] Dispense Status RETURNED [facility] Blood 03/01/2025 1:37 PM CDT Narrative [facility] - 03/05/2025 7:20 AM CDT Are special requirements needed? (All products are leukoreduced and CMV- safe)- >No Date required:-[id number] [facility] # of [id number] Reasons:-Hemorrhagic shock/Life-threatening bleeding} us Rehana Shipley DO BLOOD BANK PRODUCT ORD ERABLES Final Result [facility] [address] [place] [address] * CT Abdomen Pelvis WO Contrast (03/01/2025 [...] * Lactate (03/01/2025 12:51 PM CDT) Pathologist [facility] Lactate 1.1 0.7 - 2.0 mmol/L Blood 03/01/2025 12:5 1 PM CDT 03/01/2025 1:00 PM CDT Rehana Shipley DO LAB BLOOD ORDERABLES F inal Result [facility] [address] [place] [address] * (ABNORMAL) eGFR (03/01/2025 12:51 PM CDT) Pathologist [facility] eGFR 24(L) >=60 mL/min/1. 73 m2 Comment: [...] DO LAB BLOOD ORDERABLES F inal Result [facility] [address] [place] [place] [address] * (ABNORMAL) Hemoglobin and hematocrit (03/01/2025 12:51 PM CDT) [facility] Hgb 8.9(L) 13.0 - 17.5 g/dL Hct 27.6(L) 38.9 - 50.3 % [facility] Blood 03/01/2025 12:5 1 PM CDT 03/01/2025 1:02 PM CDT Rehanababak Shipley [employer] LAB BLOOD ORDERABLES F inal Result [facility] [address] Department [employer] [place], [place] [id number] * (ABNORMAL) Comprehensive metabolic panel (03/01/2025 12:51 PM CDT) Sodium 134(L) 135 - 145 mmol/L Potassium, pl 4.2 3.3 - 4.9 mmol/L [facility] Chloride 96(L) 97 - 110 mmol/L [facility] CO2 20(L) 22 - 32 mmol/L [facility] Anion gap 18(H) 2 - 15 mmol/L [facility] BUN 108(H) 6 - 25 mg/dL [facility] Creatinine 2.74(H) 0.80 - 1.30 mg/dL [facility] Glucose 133 70 - 199 mg/dL [facility] Comment: Interpretive Data Fasting glucose >/= 126 [...] 2022. Calcium 8.4(L) 8.5 - 10.3 mg/dL [facility] Bilirubin, total 0.3 0.1 - 1.2 mg/dL [facility] Protein, pl 5.9(L) 6.5 - 8.5 g/dL [facility] Albumin 2.6(L) 3.5 - 5.0 g/dL [facility] Alk phos 72 40 - 130 Units/L [facility] ALT 11 7 - 55 Units/L [facility] AST 34 10 - 50 Units/L [facility] Blood 03/01/2025 12:5 1 PM CDT 03/01/2025 1:02 PM CDT us Rehana Shipley DO LAB BLOOD ORDERABLES F inal Result [facility] [address] [place] [address] * POCT glucose (03/01/2025 11:25 AM CDT) Glucose, POC 161 70 - 199 mg/dL Comment: For Glucose values <35 mg/dl when Hematocrit is >60 mg/dl,the test may not accurately detect significant hypoglycemia,and testing in the Laboratory should be considered if clinically indicated. POC Performer [phone] [facility] Blood 03/01/2025 11:2 5 AM CDT 03/01/2025 11:25 AM CDT Rehana Kaylan Shipley DO LAB POCT ORDERABLES - DEVICE Final Result Performing Organization Address [facility] Co de Phone Number [facility] [address] [facility] [place] [address] * POCT glucose (03/01/2025 8:33 AM CDT) Glucose, POC 149 70 - 199 mg/dL Comment: For Glucose values <35 mg/dl when Hematocrit is >60 mg/dl,the test may not accurately detect significant hypoglycemia,and testing in the Laboratory should be considered if clinically indicated. POC Performer [phone] [facility] Blood 03/01/2025 8:33 AM CDT 03/01/2025 8:33 AM CDT Rehana Shipley DO LAB POCT ORDERABLES - DEVICE Final Result Performing Organization Address [facility] Co de Phone Number [facility] [address] [facility] [employer] [place], [place] [id number] * POCT glucose (03/01/2025 4:39 AM CDT) Glucose, POC 131 70 - 199 mg/dL Comment: For Glucose values <35 mg/dl when Hematocrit is >60 mg/dl,the test may not accurately detect significant hypoglycemia,and testing in the Laboratory should be considered if clinically indicated. POC Performer [phone] [facility] Blood 03/01/2025 4:39 AM CDT 03/01/2025 4:39 AM CDT Rehana Shipley DO LAB POCT ORDERABLES - DEVICE Final Result [facility] [address] [place] [address] * XR Chest 1 View (03/01/2025 4:14 [...] DO LAB BLOOD ORDERABLES F inal Result [facility] [address] [place] [address] * (ABNORMAL) Differential, auto (03/01/2025 2:45 AM CDT) Neutrophil abs 15.68(H) 1.50 - 6.50 K/cumm Imm gran abs 0.19(H) 0.00 - 0.10 K/cumm [facility] Lymphocyte abs 2.32 0.80 - 3.30 K/cumm [facility] Monocyte abs 1.64(H) 0.20 - 0.80 K/cumm [facility] Eosinophil abs 0.02 0.00 - 0.50 K/cumm [facility] Basophil abs 0.07 0.00 - 0.10 K/cumm [facility] Neutrophil pct 78.7 % [facility] Comment: Interpretive Data Percent cell count reference ranges are not reported, since discordance with absolute values may lead to misinterpretation of CBC data. Current Interpretive Data was last revised on 2018. Imm gran pct 1.0 % [facility] Comment: Interpretive Data Percent cell count reference ranges are not reported, since discordance with absolute values may lead to misinterpretation of CBC data. Current Interpretive Data was last revised on 2018. Lymphocyte pct 11.6 % [facility] Comment: Interpretive Data Percent cell count reference ranges are not reported, since discordance with absolute values may lead to misinterpretation of CBC data. Current Interpretive Data was last revised on 2018. Monocyte pct 8.2 % [facility] Comment: Interpretive Data Percent cell count reference ranges are not reported, since discordance with absolute values may lead to misinterpretation of CBC data. Current Interpretive Data was last revised on 2018. Eosinophil pct 0.1 % [facility] Comment: Interpretive Data Percent cell count reference ranges are not reported, since discordance with absolute values may lead to misinterpretation of CBC data. Current Interpretive Data was last revised on 2018. Basophil pct 0.4 % [facility] Comment: Interpretive Data Percent cell count reference ranges are not reported, since discordance with absolute values may lead to misinterpretation of CBC data. Current Interpretive Data was last revised on 2018. Blood 03/01/2025 2:45 AM CDT 03/01/2025 2:56 AM CDT us Rehana Shipley DO LAB BLOOD ORDERABLES F inal Result [facility] [address] [place] [address] * (ABNORMAL) CBC with auto differential (03/01/2025 2:45 AM CDT) WBC 19.92(H) 3.80 - 9.90 K/cumm Hgb 10.7(L) 13.0 - 17.5 g/dL [facility] Hct 34.5(L) 38.9 - 50.3 % [facility] Plt 291 150 - 400 K/cumm [facility] MPV 12.8(H) 9.1 - 12.3 fL [facility] RBC 3.75(L) 4.30 - 5.80 M/cumm [facility] MCV 92.0 81.3 - 96.4 fL [facility] MCH 28.5 27.1 - 33.3 pg [facility] MCHC 31.0(L) 32.3 - 35.7 g/dL [facility] RDW CV 14.9 11.1 - 14.9 % [facility] RDW SD 49.9(H) 35.7 - 48.1 fL [facility] NRBC abs 0.00 0.00 - 0.01 K/cumm [facility] Blood 03/01/2025 2:45 AM CDT 03/01/2025 2:56 AM CDT Rehana Kaylan Shipley DO LAB BLOOD ORDERABLES F inal Result Performing Organization Address [facility]/ZIP Co de Phone Number [facility] [address] [place] [address] * Blood culture Blood (03/01/2025 2:45 AM CDT) Report Final Report: No growth Blood 03/01/2025 2:45 AM CDT 03/01/2025 2:58 AM CDT Narrative [facility] - 03/06/2025 7:01 AM CDT From a [...] organism identification may be performed using the [employer] Blood Culture Identification panel. This assay detects microbial DNA in a blood culture broth. This assay has been cleared by the [place] Food and Drug Administration and its performance characteristics have been verified by the [facility]. Interpretive data was last revised on November 09, 2022. Rehana Shipley DO LAB MICROBIOLOGY - GEN ERAL ORDERABLES Final Result Performing Organization Address City/[facility]/ZIP Co de Phone Number [facility] [address] [place] [address] * Blood culture Blood (03/01/2025 2:45 AM [...] organism identification may be performed using the [employer] Blood Culture Identification panel. This assay detects microbial DNA in a blood culture broth. This assay has been cleared by the [place] Food and Drug Administration and its performance characteristics have been verified by the [facility]. Interpretive data was last revised on November 09, 2022. [employer] LAB MICROBIOLOGY - GEN ERAL ORDERABLES Final Result Performing Organization Address [facility] Co de Phone Number [facility] [address] [place] [address] * (ABNORMAL) aPTT (03/01/2025 2:45 AM CDT) aPTT 80(H) 28 - 38 sec Comment: Interpretive Data Heparin therapeutic range: 66.0 - 100.0 seconds. Range based on correlation with therapeutic heparin activity range of 0.3 - 0.7 Units/mL. Current interpretive data was last revised on 2023. Blood 03/01/2025 2:45 AM CDT 03/01/2025 2:57 AM CDT [employer] LAB BLOOD ORDERABLES F inal Result Performing Organization Address [facility]/ZIP Co de Phone Number [facility] [address] [place] [address] * (ABNORMAL) Magnesium (03/01/2025 2:45 AM CDT) Pathologist [facility] Magnesium 2.7(H) 1.4 - 2.5 mg/dL Blood 03/01/2025 2:45 AM CDT 03/01/2025 2:58 AM CDT us Rehana Shipley DO LAB BLOOD ORDERABLES F inal Result [facility] [address] [place] [address] * (ABNORMAL) Renal function panel (03/01/2025 2:45 AM CDT) [facility] Sodium 136 135 - 145 mmol/L Potassium, pl 4.4 3.3 - 4.9 mmol/L [facility] Chloride 96(L) 97 - 110 mmol/L [facility] CO2 21(L) 22 - 32 mmol/L [facility] Anion gap 19(H) 2 - 15 mmol/L [facility] BUN 103(H) 6 - 25 mg/dL [facility] Creatinine 2.77(H) 0.80 - 1.30 mg/dL [facility] Glucose 132 70 - 199 mg/dL [facility] Comment: Interpretive Data Fasting glucose >/= 126 [...] 2022. Calcium 8.7 8.5 - 10.3 mg/dL [facility] Phosphorus, pl 6.0(H) 2.3 - 4.5 mg/dL [facility] Albumin 2.9(L) 3.5 - 5.0 g/dL [facility] Blood 03/01/2025 2:45 AM CDT 03/01/2025 2:58 AM CDT Rehana Shipley DO LAB BLOOD ORDERABLES F inal Result Performing Organization Address [facility]/ZIP Co de Phone Number [facility] [address] [facility] [place] [address] * POCT glucose (03/01/2025 12:44 AM CDT) Glucose, POC 152 70 - 199 mg/dL Comment: For Glucose values <35 mg/dl when Hematocrit is >60 mg/dl,the test may not accurately detect significant hypoglycemia,and testing in the Laboratory should be considered if clinically indicated. POC Performer [phone] [facility] Blood 03/01/2025 12:4 4 AM CDT 03/01/2025 12:44 AM CDT Rehana Shipley DO LAB POCT ORDERABLES - DEVICE Final Result Performing Organization Address [facility] Co de Phone Number [facility] [address] [facility] [place] [address] * POCT glucose (02/28/2025 7:57 PM CDT) Glucose, POC 171 70 - 199 mg/dL Comment: For Glucose values <35 mg/dl when Hematocrit is >60 mg/dl,the test may not accurately detect significant hypoglycemia,and testing in the Laboratory should be considered if clinically indicated. POC Performer [phone] [facility] Blood 02/28/2025 7:57 PM CDT 02/28/2025 7:57 PM CDT Rehanababak Shipley DO LAB POCT ORDERABLES - DEVICE Final Result Performing Organization Address City/[facility]/ZIP Co de Phone Number [facility] [address] [place] [address] * POCT glucose (02/28/2025 5:16 PM CDT) Glucose, POC 164 70 - 199 mg/dL Comment: For Glucose values <35 mg/dl when Hematocrit is >60 mg/dl,the test may not accurately detect significant hypoglycemia,and testing in the Laboratory should be considered if clinically indicated. POC Performer [id number] [facility] Blood 02/28/2025 5:16 PM CDT 02/28/2025 5:16 PM CDT Rehana Shipley DO LAB POCT ORDERABLES - DEVICE Final Result Performing Organization Address [facility]/ZIP Co de Phone Number [facility] [address] [place] [address] * (ABNORMAL) aPTT (02/28/2025 2:53 PM CDT) aPTT 70(H) 28 - 38 sec Comment: Interpretive Data Heparin therapeutic range: 66.0 - 100.0 seconds. Range based on correlation with therapeutic heparin activity range of 0.3 - 0.7 Units/mL. Current interpretive data was last revised on 2023. Blood 02/28/2025 2:53 PM CDT 02/28/2025 3:11 PM CDT Rehana Shipley DO LAB BLOOD ORDERABLES F inal Result [facility] [address] [facility] [place] [address] * (ABNORMAL) POCT glucose (02/28/2025 12:49 PM CDT) Glucose, POC 201(H) 70 - 199 mg/dL Comment: For Glucose values <35 mg/dl when Hematocrit is >60 mg/dl,the test may not accurately detect significant hypoglycemia,and testing in the Laboratory should be considered if clinically indicated. POC Performer [id number] [facility] Blood 02/28/2025 12:4 9 PM CDT 02/28/2025 12:49 PM CDT Rehana Shipley DO LAB POCT ORDERABLES - DEVICE Final Result Performing Organization Address [facility] Co de Phone Number [facility] [address] [place] [address] * (ABNORMAL) aPTT (02/28/2025 8:10 AM CDT) [...] ORDERABLES Madhavi l Result Performing Organization Address [facility] Co de Phone Number [facility] [address] [place] [address] * POCT glucose (02/28/2025 8:04 AM CDT) Glucose, POC 129 70 - 199 mg/dL Comment: For Glucose values <35 mg/dl when Hematocrit is >60 mg/dl,the test may not accurately detect significant hypoglycemia,and testing in the Laboratory should be considered if clinically indicated. POC Performer [id number] [facility] Blood 02/28/2025 8:04 AM CDT 02/28/2025 8:04 AM CDT Rehana Shipley DO LAB POCT ORDERABLES - DEVICE Final Result Performing Organization Address [facility] Co de Phone Number [facility] [address] Department [place] [address] * POCT glucose (02/28/2025 4:14 AM CDT) [facility] Signature Glucose, POC 122 70 - 199 mg/dL Comment: For Glucose values <35 mg/dl when Hematocrit is >60 mg/dl,the test may not accurately detect significant hypoglycemia,and testing in the Laboratory should be considered if clinically indicated. POC Performer [phone] [facility] Blood 02/28/2025 4:14 AM CDT 02/28/2025 4:14 AM CDT us Rehana Shipley DO LAB POCT ORDERABLES - DEVICE Final Result Performing Organization Address [facility] de Phone Number [facility] [address] [place] [address] * XR Chest 1 View (02/28/2025 3:49 [...] LAB BLOOD ORDERABLES F inal Result [facility] [address] [place] [address] * (ABNORMAL) eGFR (02/28/2025 1:21 AM CDT) [...] DO LAB BLOOD ORDERABLES F inal Result [facility] [address] Department [place] [address] * (ABNORMAL) Differential, auto (02/28/2025 1:21 AM CDT) Neutrophil abs 13.25(H) 1.50 - 6.50 K/cumm Imm gran abs 0.15(H) 0.00 - 0.10 K/cumm [facility] Lymphocyte abs 2.15 0.80 - 3.30 K/cumm [facility] Monocyte abs 1.67(H) 0.20 - 0.80 K/cumm [facility] Eosinophil abs 0.19 0.00 - 0.50 K/cumm [facility] Basophil abs 0.07 0.00 - 0.10 K/cumm [facility] Neutrophil pct 75.7 % [facility] Comment: Interpretive Data Percent cell count reference ranges are not reported, since discordance with absolute values may lead to misinterpretation of CBC data. Current Interpretive Data was last revised on 2018. Imm gran pct 0.9 % [facility] Comment: Interpretive Data Percent cell count reference ranges are not reported, since discordance with absolute values may lead to misinterpretation of CBC data. Current Interpretive Data was last revised on 2018. Lymphocyte pct 12.3 % [facility] Comment: Interpretive Data Percent cell count reference ranges are not reported, since discordance with absolute values may lead to misinterpretation of CBC data. Current Interpretive Data was last revised on 2018. Monocyte pct 9.6 % [facility] Comment: Interpretive Data Percent cell count reference ranges are not reported, since discordance with absolute values may lead to misinterpretation of CBC data. Current Interpretive Data was last revised on 2018. Eosinophil pct 1.1 % [facility] Comment: Interpretive Data Percent cell count reference ranges are not reported, since discordance with absolute values may lead to misinterpretation of CBC data. Current Interpretive Data was last revised on 2018. Basophil pct 0.4 % [facility] Comment: Interpretive Data Percent cell count reference ranges are not reported, since discordance with absolute values may lead to misinterpretation of CBC data. Current Interpretive Data was last revised on 2018. Blood 02/28/2025 1:21 AM CDT 02/28/2025 1:32 AM CDT Rehana Shipley DO LAB BLOOD ORDERABLES F inal Result Performing Organization Address [place]/[facility] Co de Phone Number [facility] [address] [place] [address] * (ABNORMAL) Procalcitonin (02/28/2025 1:21 AM CDT) Pathologist [facility] Procalcitonin 0.29(H) <=0.25 ng/mL Blood 02/28/2025 1:21 AM CDT 02/28/2025 1:33 AM CDT Rehana Shipley DO LAB BLOOD ORDERABLES F inal Result Performing Organization Address [facility] [facility] Co de Phone Number [facility] [address] [place] [address] * Thyroid Function [place] (02/28/2025 1:21 AM CDT) Pathologist [facility] TSH 3.26 0.30 - 4.20 mcIUnit/mL Blood 02/28/2025 1:21 AM CDT 02/28/2025 1:33 AM CDT Rehana Shipley DO LAB BLOOD ORDERABLES F inal Result Performing Organization Address [facility] Co de Phone Number [facility] [address] Department [employer] [place], [place] [phone] * (ABNORMAL) CBC with auto differential (02/28/2025 1:21 AM CDT) Pathologist [facility] WBC 17.48(H) 3.80 - 9.90 K/cumm Hgb 12.5(L) 13.0 - 17.5 g/dL [facility] Hct 39.7 38.9 - 50.3 % [facility] Plt 260 150 - 400 K/cumm [facility] MPV 12.7(H) 9.1 - 12.3 fL [facility] RBC 4.35 4.30 - 5.80 M/cumm [facility] MCV 91.3 81.3 - 96.4 fL [facility] MCH 28.7 27.1 - 33.3 pg [facility] MCHC 31.5(L) 32.3 - 35.7 g/dL [facility] RDW CV 15.3(H) 11.1 - 14.9 % [facility] RDW SD 51.0(H) 35.7 - 48.1 fL [facility] NRBC abs 0.00 0.00 - 0.01 K/cumm [facility] Blood 02/28/2025 1:21 AM CDT 02/28/2025 1:32 AM CDT us Rehana Shipley DO LAB BLOOD ORDERABLES F inal Result Performing Organization Address [facility] Co de Phone Number [facility] [address] [place] [address] * (ABNORMAL) aPTT (02/28/2025 1:21 AM CDT) Pathologist [facility] aPTT 60(H) 28 - 38 sec Comment: Interpretive Data Heparin therapeutic range: 66.0 - 100.0 seconds. Range based on correlation with therapeutic heparin activity range of 0.3 - 0.7 Units/mL. Current interpretive data was last revised on 2023. Blood 02/28/2025 1:21 AM CDT 02/28/2025 1:27 AM CDT us Evgeny Villalba MD LAB BLOOD ORDERABLES Madhavi l Result [facility] [address] [facility] [place] [address] * (ABNORMAL) Phosphorus (02/28/2025 1:21 AM CDT) [facility] Phosphorus, pl 4.6(H) 2.3 - 4.5 mg/dL Blood 02/28/2025 1:21 AM CDT 02/28/2025 1:33 AM CDT Rehana Shipley DO LAB BLOOD ORDERABLES F inal Result Performing Organization Address [facility]/ZIP Co de Phone Number [facility] [address] [facility] [place] [address] * (ABNORMAL) Magnesium (02/28/2025 1:21 AM CDT) [facility] Magnesium 2.9(H) 1.4 - 2.5 mg/dL Blood 02/28/2025 1:21 AM CDT 02/28/2025 1:33 AM CDT Rehana Shipley LAB BLOOD ORDERABLES F inal Result Performing Organization Address [facility] Co de Phone Number [facility] [address] [facility] [place] [address] * (ABNORMAL) Comprehensive metabolic panel (02/28/2025 1:21 AM CDT) [facility] Sodium 144 135 - 145 mmol/L Potassium, pl 3.9 3.3 - 4.9 mmol/L [facility] Chloride 104 97 - 110 mmol/L [facility] CO2 22 22 - 32 mmol/L [facility] Anion gap 18(H) 2 - 15 mmol/L [facility] BUN 88(H) 6 - 25 mg/dL [facility] Creatinine 2.41(H) 0.80 - 1.30 mg/dL [facility] Glucose 128 70 - 199 mg/dL [facility] Comment: Interpretive Data Fasting glucose >/= 126 [...] 2022. Calcium 8.6 8.5 - 10.3 mg/dL [facility] Bilirubin, total 0.2 0.1 - 1.2 mg/dL [facility] Protein, pl 6.7 6.5 - 8.5 g/dL [facility] Albumin 2.9(L) 3.5 - 5.0 g/dL [facility] Alk phos 78 40 - 130 Units/L [facility] ALT 9 7 - 55 Units/L [facility] AST 41 10 - 50 Units/L [facility] Blood 02/28/2025 1:21 AM CDT 02/28/2025 1:33 AM CDT Rehana Shipley DO LAB BLOOD ORDERABLES F inal Result [facility] [address] Department of Laboratories [place], [place] [phone] * POCT glucose (02/28/2025 12:21 AM CDT) [facility] Signature Glucose, POC 113 70 - 199 mg/dL Comment: For Glucose values <35 mg/dl when Hematocrit is >60 mg/dl,the test may not accurately detect significant hypoglycemia,and testing in the Laboratory should be considered if clinically indicated. POC Performer [phone] [facility] Blood 02/28/2025 12:2 1 AM CDT 02/28/2025 12:21 AM CDT Rehana Shipley DO LAB POCT ORDERABLES - DEVICE Final Result Performing Organization Address [facility] Co de Phone Number [facility] [address] Department [employer] [place], [place] [phone] * POCT glucose (02/27/2025 8:07 PM CDT) Glucose, POC 122 70 - 199 mg/dL Comment: For Glucose values <35 mg/dl when Hematocrit is >60 mg/dl,the test may not accurately detect significant hypoglycemia,and testing in the Laboratory should be considered if clinically indicated. POC Performer [id number] [facility] Blood 02/27/2025 8:07 PM CDT 02/27/2025 8:07 PM CDT Rehana Shipley DO LAB POCT ORDERABLES - DEVICE Final Result Performing Organization Address [facility] de Phone Number [facility] [address] [place] [address] * (ABNORMAL) aPTT (02/27/2025 6:23 PM CDT) [...] ORDERABLES F inal Result Performing Organization Address [facility] Co de Phone Number [facility] [address] Department [employer] [place], [place] [phone] * POCT glucose (02/27/2025 4:09 PM CDT) Glucose, POC 195 70 - 199 mg/dL Comment: For Glucose values <35 mg/dl when Hematocrit is >60 mg/dl,the test may not accurately detect significant hypoglycemia,and testing in the Laboratory should be considered if clinically indicated. POC Performer [id number] [facility] Blood 02/27/2025 4:09 PM CDT 02/27/2025 4:09 PM CDT Rehana Shipley DO LAB POCT ORDERABLES - DEVICE Final Result Performing Organization Address [facility] Co de Phone Number [facility] [address] [place] [address] * NT-Pro BNP - Add on lab test (02/27/2025 2:33 PM CDT) Acceptable Yes Blood 02/27/2025 2:33 PM CDT 02/27/2025 2:33 PM CDT Narrative [facility] - 02/27/2025 2:33 PM CDT Name of Test->NT-Pro BNP Balbina Mac [employer] LAB BLOOD ORDERABLES Fi nal Result Performing Organization Address [facility] de Phone Number [facility] [address] [place] [address] * (ABNORMAL) POCT glucose (02/27/2025 12:08 PM CDT) Glucose, POC 264(H) 70 - 199 mg/dL Comment: For Glucose values <35 mg/dl when Hematocrit is >60 mg/dl,the test may not accurately detect significant hypoglycemia,and testing in the Laboratory should be considered if clinically indicated. POC Performer [id number] [facility] Blood 02/27/2025 12:0 8 PM CDT 02/27/2025 12:08 PM CDT Rehana Shipley DO LAB POCT ORDERABLES - DEVICE Final Result Performing Organization Address [facility] Co de Phone Number [facility] [address] [place] [address] * ECG 12 lead (02/27/2025 11:45 AM CDT) 02/27/2025 11:4 5 AM CDT Narrative [facility] - 02/27/2025 12:09 PM CDT Vent Rate: 89 bpm RR Interval: 671 msec LA Interval: 173 msec QRS Duration: 158 msec QT Interval: 452 msec QTC Interval: 499 msec P-R-T [place]: 55 - 46 - 253 degrees IMPRESSION: SINUS RHYTHM INTRAVENTRICULAR CONDUCTION DELAY [130+ ms QRS DURATION] ABNORMAL ECG Electronically Signed By: Marjyo Canchola MD, [facility] Rehana Shipley DO ECG ORDERABLES Final Result Performing Organization Address [facility] Co de Phone Number [facility] * aPTT (02/27/2025 9:33 AM CDT) aPTT 32 28 - 38 sec Comment: Interpretive Data Heparin therapeutic range: 66.0 - 100.0 seconds. Range based on correlation with therapeutic heparin activity range of 0.3 - 0.7 Units/mL. Current interpretive data was last revised on 2023. Blood 02/27/2025 9:33 AM CDT 02/27/2025 10:01 AM CDT Narrative [facility] - 02/27/2025 10:16 AM CDT Baseline prior to heparin initiation Rehana Shipley DO LAB BLOOD ORDERABLES F inal Result Performing Organization Address [facility]/ZIP Co de Phone Number [facility] [address] [place] [address] * Protime-INR (02/27/2025 9:33 AM CDT) PT 12.2 9.7 - 13.0 sec INR 1.13 0.90 - 1.20 [facility] Comment: Interpretive data Oral anticoagulant therapeutic ranges: Venous thromboembolism prophylaxis or treatment: 2.0-3.0 CARDIOLOGY Standard range: 2.0-3.0 High-intensity range: 2.5-3.5 Refer to indication-specific guidelines for appropriate target ranges for prosthetic heart valve replacement. Current interpretive data was last revised on 2019. Blood 02/27/2025 9:33 AM CDT 02/27/2025 10:01 AM CDT Narrative [facility] - 02/27/2025 10:16 AM CDT Baseline prior to heparin initiation us Rehana Shipley DO LAB BLOOD ORDERABLES F inal Result [facility] [address] [place] [address] * (ABNORMAL) CBC without differential (02/27/2025 9:33 AM CDT) WBC 20.73(H) 3.80 - 9.90 K/cumm Hgb 13.0 13.0 - 17.5 g/dL [facility] Hct 42.4 38.9 - 50.3 % [facility] Plt 269 150 - 400 K/cumm [facility] MPV 13.3(H) 9.1 - 12.3 fL [facility] RBC 4.52 4.30 - 5.80 M/cumm [facility] MCV 93.8 81.3 - 96.4 fL [facility] MCH 28.8 27.1 - 33.3 pg [facility] MCHC 30.7(L) 32.3 - 35.7 g/dL [facility] RDW CV 15.5(H) 11.1 - 14.9 % [facility] RDW SD 54.0(H) 35.7 - 48.1 fL [facility] NRBC abs 0.00 0.00 - 0.01 K/cumm [facility] Blood 02/27/2025 9:33 AM CDT 02/27/2025 10:01 AM CDT Narrative [facility] - 02/27/2025 10:13 AM CDT Baseline prior to heparin initiation Rehana Mackeyjerzy DO LAB BLOOD ORDERABLES F inal Result Performing Organization Address [facility] Co de Phone Number [facility] [address] [place] [address] * POCT glucose (02/27/2025 7:47 AM CDT) [facility] Signature Glucose, POC 190 70 - 199 mg/dL Comment: For Glucose values <35 mg/dl when Hematocrit is >60 mg/dl,the test may not accurately detect significant hypoglycemia,and testing in the Laboratory should be considered if clinically indicated. POC Performer [phone] [facility] Blood 02/27/2025 7:47 AM CDT 02/27/2025 7:47 AM CDT Rehana Shipley DO LAB POCT ORDERABLES - DEVICE Final Result Performing Organization Address [facility] de Phone Number [facility] [address] [place] [address] * XR Chest 1 View (02/27/2025 5:09 [...] * POCT glucose (02/27/2025 4:20 AM CDT) [facility] Glucose, POC 181 70 - 199 mg/dL Comment: For Glucose values <35 mg/dl when Hematocrit is >60 mg/dl,the test may not accurately detect significant hypoglycemia,and testing in the Laboratory should be considered if clinically indicated. POC Performer [id number] [facility] Blood 02/27/2025 4:20 AM CDT 02/27/2025 4:20 AM CDT Maryjo Deshpadne MD LAB POCT ORDERABLES - DEVICE Final Result [facility] [address] [place] [address] * (ABNORMAL) eGFR (02/27/2025 2:48 AM CDT) [facility] eGFR 27(L) >=60 mL/min/1. 73 m2 Comment: [...] LAB BLOOD ORDERABLES Final R esult [facility] [address] [place] [address] * (ABNORMAL) Pro B-type natriuretic [...] ORDERABLES F inal Result Performing Organization Address [facility] Co de Phone Number [facility] [address] [place] [address] * (ABNORMAL) Calcium, ionized (02/27/2025 2:48 AM CDT) Pathologist [facility] Calcium, Ionized 4.32(L) 4.50 - 5.10 mg/dL Blood 02/27/2025 2:48 AM CDT 02/27/2025 3:02 AM CDT Maryjo Deshpande MD LAB BLOOD ORDERABLES Final R esult Performing Organization Address [facility] de Phone Number [facility] [address] [place] [address] * (ABNORMAL) CBC without differential (02/27/2025 2:48 AM CDT) WBC 16.19(H) 3.80 - 9.90 K/cumm Hgb 12.9(L) 13.0 - 17.5 g/dL [facility] Hct 42.0 38.9 - 50.3 % [facility] Plt 226 150 - 400 K/cumm [facility] MPV 13.0(H) 9.1 - 12.3 fL [facility] RBC 4.48 4.30 - 5.80 M/cumm [facility] MCV 93.8 81.3 - 96.4 fL [facility] MCH 28.8 27.1 - 33.3 pg [facility] MCHC 30.7(L) 32.3 - 35.7 g/dL [facility] RDW CV 15.5(H) 11.1 - 14.9 % [facility] RDW SD 53.6(H) 35.7 - 48.1 fL [facility] NRBC abs 0.00 0.00 - 0.01 K/cumm [facility] Blood 02/27/2025 2:48 AM CDT 02/27/2025 3:04 AM CDT Maryjo Deshpande MD LAB BLOOD ORDERABLES Final R esult Performing Organization Address [facility]/ZIP Co de Phone Number [facility] [address] [employer] [place], [place] [id number] * (ABNORMAL) Magnesium (02/27/2025 2:48 AM CDT) [facility] Magnesium 2.8(H) 1.4 - 2.5 mg/dL Blood 02/27/2025 2:48 AM CDT 02/27/2025 3:04 AM CDT Maryjo Deshpande MD LAB BLOOD ORDERABLES Final R esult Performing Organization Address [facility] Co de Phone Number [facility] [address] [place] [address] * (ABNORMAL) Renal function panel (02/27/2025 2:48 AM CDT) [facility] Sodium 142 135 - 145 mmol/L Potassium, pl 3.8 3.3 - 4.9 mmol/L [facility] Chloride 100 97 - 110 mmol/L [facility] CO2 21(L) 22 - 32 mmol/L [facility] Anion gap 21(H) 2 - 15 mmol/L [facility] BUN 77(H) 6 - 25 mg/dL [facility] Creatinine 2.45(H) 0.80 - 1.30 mg/dL [facility] Glucose 210(H) 70 - 199 mg/dL [facility] Comment: Interpretive Data Fasting glucose >/= 126 [...] 2022. Calcium 8.3(L) 8.5 - 10.3 mg/dL [facility] Phosphorus, pl 4.6(H) 2.3 - 4.5 mg/dL [facility] Albumin 2.8(L) 3.5 - 5.0 g/dL [facility] Blood 02/27/2025 2:48 AM CDT 02/27/2025 3:04 AM CDT Maryjo Deshpande MD LAB BLOOD ORDERABLES Final R esult Performing Organization Address [facility] Co de Phone Number [facility] [address] [place] [address] * (ABNORMAL) POCT glucose (02/27/2025 12:46 AM CDT) [facility] Glucose, POC 202(H) 70 - 199 mg/dL Comment: For Glucose values <35 mg/dl when Hematocrit is >60 mg/dl,the test may not accurately detect significant hypoglycemia,and testing in the Laboratory should be considered if clinically indicated. POC Performer [id number] [facility] Blood 02/27/2025 12:4 6 AM CDT 02/27/2025 12:46 AM CDT Maryjo Deshpande MD LAB POCT ORDERABLES - DEVICE Final Result Performing Organization Address [facility]/ZIP Co de Phone Number [facility] [address] [place] [address] * POCT glucose (02/26/2025 8:38 PM CDT) Glucose, POC 192 70 - 199 mg/dL Comment: For Glucose values <35 mg/dl when Hematocrit is >60 mg/dl,the test may not accurately detect significant hypoglycemia,and testing in the Laboratory should be considered if clinically indicated. POC Performer [id number] [facility] Blood 02/26/2025 8:38 PM CDT 02/26/2025 8:38 PM CDT Maryjo Deshpande MD LAB POCT ORDERABLES - DEVICE Final Result Performing Organization Address [facility] Co de Phone Number [facility] [address] [facility] [employer] [place], [place] [id number] * POCT glucose (02/26/2025 3:58 PM CDT) Glucose, POC 143 70 - 199 mg/dL Comment: For Glucose values <35 mg/dl when Hematocrit is >60 mg/dl,the test may not accurately detect significant hypoglycemia,and testing in the Laboratory should be considered if clinically indicated. POC Performer [id number] [facility] Blood 02/26/2025 3:58 PM CDT 02/26/2025 3:58 PM CDT Maryjo Deshpande MD LAB POCT ORDERABLES - DEVICE Final Result Performing Organization Address [facility] Co de Phone Number [facility] [address] [facility] [place] [address] * (ABNORMAL) POCT glucose (02/26/2025 11:53 AM CDT) Glucose, POC 216(H) 70 - 199 mg/dL Comment: For Glucose values <35 mg/dl when Hematocrit is >60 mg/dl,the test may not accurately detect significant hypoglycemia,and testing in the Laboratory should be considered if clinically indicated. POC Performer [id number] [facility] Blood 02/26/2025 11:5 3 AM CDT 02/26/2025 11:53 AM CDT Maryjo Deshpande MD LAB POCT ORDERABLES - DEVICE Final Result Performing Organization Address [facility] Co de Phone Number [facility] [address] [place] [address] * (ABNORMAL) POCT glucose (02/26/2025 9:04 AM CDT) Glucose, POC 214(H) 70 - 199 mg/dL Comment: For Glucose values <35 mg/dl when Hematocrit is >60 mg/dl,the test may not accurately detect significant hypoglycemia,and testing in the Laboratory should be considered if clinically indicated. POC Performer [id number] [facility] Blood 02/26/2025 9:04 AM CDT 02/26/2025 9:04 AM CDT Maryjo Deshpande MD LAB POCT ORDERABLES - DEVICE Final Result Performing Organization Address [facility] de Phone Number [facility] [address] [facility] [place] [address] * (ABNORMAL) POCT glucose (02/26/2025 5:11 AM CDT) Glucose, POC 216(H) 70 - 199 mg/dL Comment: For Glucose values <35 mg/dl when Hematocrit is >60 mg/dl,the test may not accurately detect significant hypoglycemia,and testing in the Laboratory should be considered if clinically indicated. POC Performer [id number] [facility] Blood 02/26/2025 5:11 AM CDT 02/26/2025 5:11 AM CDT Maryjo Deshpande MD LAB POCT ORDERABLES - DEVICE Final Result Performing Organization Address [facility] Co de Phone Number [facility] [address] Department [employer] [place], [place] [id number] * XR Chest 1 View (02/26/2025 3:38 AM CDT) Anatomical Region Laterality Modality Body, Chest N/A Computed Radiogr aphy 02/26/2025 8:03 AM CDT Impressions 02/26/2025 8:03 AM CDT Ipava and 02/25/2025 3:59 AM. Median sternotomy wires [...] - 02/26/2025 EXAMINATION: Chest 1 view IMPRESSION: Ipava and 02/25/2025 3:59 AM. Median sternotomy wires are aligned and intact. Endotracheal tube tip approximately 5 cm above the mraisela. Gastric tube courses caudal to the diaphragm. [...] MD LAB BLOOD ORDERABLES Final R esult [facility] [address] [place] [address] * (ABNORMAL) CBC without differential (02/26/2025 3:04 AM CDT) WBC 16.74(H) 3.80 - 9.90 K/cumm Hgb 13.0 13.0 - 17.5 g/dL [facility] Hct 42.3 38.9 - 50.3 % [facility] Plt 211 150 - 400 K/cumm [facility] MPV 12.7(H) 9.1 - 12.3 fL [facility] RBC 4.53 4.30 - 5.80 M/cumm [facility] MCV 93.4 81.3 - 96.4 fL [facility] MCH 28.7 27.1 - 33.3 pg [facility] MCHC 30.7(L) 32.3 - 35.7 g/dL [facility] RDW CV 15.4(H) 11.1 - 14.9 % [facility] RDW SD 53.1(H) 35.7 - 48.1 fL [facility] NRBC abs 0.00 0.00 - 0.01 K/cumm [facility] Blood 02/26/2025 3:04 AM CDT 02/26/2025 3:24 AM CDT Maryjo Deshpande MD LAB BLOOD ORDERABLES Final R esult Performing Organization Address [facility]/ZIP Co de Phone Number [facility] [address] Department [place] [employer] [place], [place] [phone] * (ABNORMAL) Magnesium (02/26/2025 3:04 AM CDT) Magnesium 2.7(H) 1.4 - 2.5 mg/dL Comment:Reviewed Blood 02/26/2025 3:04 AM CDT 02/26/2025 3:24 AM CDT Maryjo Deshpande MD LAB BLOOD ORDERABLES Final R esult Performing Organization Address [facility] Co de Phone Number [facility] [address] [place] [address] * (ABNORMAL) Renal function panel (02/26/2025 3:04 AM CDT) Sodium 142 135 - 145 mmol/L Potassium, pl 4.0 3.3 - 4.9 mmol/L [facility] Chloride 103 97 - 110 mmol/L [facility] CO2 23 22 - 32 mmol/L [facility] Anion gap 16(H) 2 - 15 mmol/L [facility] BUN 61(H) 6 - 25 mg/dL [facility] Creatinine 2.06(H) 0.80 - 1.30 mg/dL [facility] Glucose 233(H) 70 - 199 mg/dL [facility] Comment: Interpretive Data Fasting glucose >/= 126 [...] 2022. Calcium 8.4(L) 8.5 - 10.3 mg/dL [facility] Phosphorus, pl 3.8 2.3 - 4.5 mg/dL [facility] Albumin 2.9(L) 3.5 - 5.0 g/dL [facility] Blood 02/26/2025 3:04 AM CDT 02/26/2025 3:24 AM CDT Maryjo Deshpande MD LAB BLOOD ORDERABLES Final R esult Performing Organization Address [facility]/ZIP Co de Phone Number [facility] [address] [facility] [employer] [place], [place] [phone] * (ABNORMAL) POCT glucose (02/26/2025 1:30 AM CDT) Glucose, POC 257(H) 70 - 199 mg/dL Comment: For Glucose values <35 mg/dl when Hematocrit is >60 mg/dl,the test may not accurately detect significant hypoglycemia,and testing in the Laboratory should be considered if clinically indicated. POC Performer [id number] [facility] Blood 02/26/2025 1:30 AM CDT 02/26/2025 1:30 AM CDT us Maryjo Deshpande MD LAB POCT ORDERABLES - DEVICE Final Result Performing Organization Address [facility] Co de Phone Number [facility] [address] [facility] [place] [address] * (ABNORMAL) POCT glucose (02/25/2025 9:39 PM CDT) Glucose, POC 226(H) 70 - 199 mg/dL Comment: For Glucose values <35 mg/dl when Hematocrit is >60 mg/dl,the test may not accurately detect significant hypoglycemia,and testing in the Laboratory should be considered if clinically indicated. POC Performer [id number] [facility] Blood 02/25/2025 9:39 PM CDT 02/25/2025 9:39 PM CDT Maryjo Deshpande MD LAB POCT ORDERABLES - DEVICE Final Result Performing Organization Address [facility] de Phone Number [facility] [address] Department of [employer] [place], [place] [phone] * Potassium (02/25/2025 4:02 PM CDT) [facility] Potassium, pl 4.0 3.3 - 4.9 mmol/L Comment:Hemolyzed; potassium value may be falsely elevated by as much as 0.6 - 1.0 mmol/L. Suggest redraw and reanalysis Blood 02/25/2025 4:02 PM CDT 02/25/2025 4:12 PM CDT Maryjo Deshpande MD LAB BLOOD ORDERABLES Final R esult Performing Organization Address [facility] de Phone Number [facility] [address] [place] [address] * Magnesium (02/25/2025 4:02 PM CDT) [facility] Magnesium 2.1 1.4 - 2.5 mg/dL Blood 02/25/2025 4:02 PM CDT 02/25/2025 4:12 PM CDT Maryjo Deshpande MD LAB BLOOD ORDERABLES Final R esult Performing Organization Address [facility] de Phone Number [facility] [address] [place] [address] * (ABNORMAL) POCT glucose (02/25/2025 3:50 PM CDT) [facility] Glucose, POC 226(H) 70 - 199 mg/dL Comment: For Glucose values <35 mg/dl when Hematocrit is >60 mg/dl,the test may not accurately detect significant hypoglycemia,and testing in the Laboratory should be considered if clinically indicated. POC Performer [id number] [facility] Blood 02/25/2025 3:50 PM CDT 02/25/2025 3:50 PM CDT Maryjo Deshpande MD LAB POCT ORDERABLES - DEVICE Final Result Performing Organization Address [facility] Co de Phone Number [facility] [address] Department of Laboratories [place], [place] [phone] * (ABNORMAL) POCT glucose (02/25/2025 11:32 AM CDT) [facility] Glucose, POC 221(H) 70 - 199 mg/dL Comment: For Glucose values <35 mg/dl when Hematocrit is >60 mg/dl,the test may not accurately detect significant hypoglycemia,and testing in the Laboratory should be considered if clinically indicated. POC Performer [id number] [facility] Blood 02/25/2025 11:3 2 AM CDT 02/25/2025 11:32 AM CDT Maryjo Deshpande MD LAB POCT ORDERABLES - DEVICE Final Result Performing Organization Address [facility] de Phone Number [facility] [address] Department [employer] [place], [place] [phone] * TRANSTHORACIC ECHO (TTE) LIMITED/FOLLOW UP W LTD DOPPLER/CF W CONTRAST (02/25/2025 10:45 AM CDT) [facility] Estimated EF 15-20 % CONS SCIMAGE Anatomical Region Laterality Modality Ultrasound 02/25/2025 8:41 AM CDT Narrative 02/25/2025 4:25 PM CDT [facility] [address] [place] [address] LIMITED ECHOCARDIOGRAM Patient Name: MAURICIO HEADLEY : 1955 (70y ) Gender: M Study Date: 02/25/2025 08:41:23 AM Ht(Inch): 67 Wt(Lb): 171.96 BSA: 1.92 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: YUMIKO Location: [id number] Order Provider: MARYJO DESHPANDE BMI: 26.93 BP: [...] size. Electronically Signed By: Jb Henning MD [facility] 02/25/2025 4:24:30 PM CDT Procedure Note Jb Henning MD - 02/25/2025 [address] [place] [address] LIMITED ECHOCARDIOGRAM Patient Name: MAURICIO HEADLEY : 1955 (70y ) Gender: M Study Date: 02/25/2025 08:41:23 AM Ht(Inch): 67 Wt(Lb): 171.96 BSA: 1.92 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: YUMIKO Location: [id number] Order Provider: MARYJO DESHPANDE BMI: 26.93 BP: [...] size. Electronically Signed By: Jb Henning MD [facility] 02/25/2025 4:24:30 PM CDT us Maryjo Deshpande MD CV ECHO PROCEDURES Final Res ult * (ABNORMAL) POCT glucose (02/25/2025 7:35 AM CDT) Glucose, POC 245(H) 70 - 199 mg/dL Comment: For Glucose values <35 mg/dl when Hematocrit is >60 mg/dl,the test may not accurately detect significant hypoglycemia,and testing in the Laboratory should be considered if clinically indicated. POC Performer [id number] [facility] Blood 02/25/2025 7:35 AM CDT 02/25/2025 7:35 AM CDT Maryjo Deshpande MD LAB POCT ORDERABLES - DEVICE Final Result Performing Organization Address [facility] Co de Phone Number [facility] [address] [facility] [employer] [place], [place] [phone] * POCT glucose (02/25/2025 4:21 AM CDT) Glucose, POC 192 70 - 199 mg/dL Comment: For Glucose values <35 mg/dl when Hematocrit is >60 mg/dl,the test may not accurately detect significant hypoglycemia,and testing in the Laboratory should be considered if clinically indicated. POC Performer [id number] [facility] Blood 02/25/2025 4:21 AM CDT 02/25/2025 4:21 AM CDT Maryjo Deshpande MD LAB POCT ORDERABLES - DEVICE Final Result Performing Organization Address [facility] Co de Phone Number [facility] [address] [facility] [employer] [place], [place] [phone] * XR Chest 1 View (02/25/2025 4:17 AM CDT) Anatomical Region Laterality Modality Body, Chest N/A Computed Radiogr aphy 02/25/2025 8:47 AM CDT Impressions 02/25/2025 8:47 AM CDT Comparison is made to 02/24/2025. The endotracheal tube tip is located 2.7 cm above the marisela. Nasogastric tube tip located with diaphragm, not included [id number]. Mediastinal wires unchanged in position. There is [...] tube tip located with diaphragm, not included [id number]. Mediastinal wires unchanged in position. There is [...] ORDERABLES Final R esult Performing Organization Address [facility] Co de Phone Number [facility] [address] [employer] [place], [place] [phone] * (ABNORMAL) CBC without differential (02/25/2025 3:40 AM CDT) Pathologist [facility] WBC 15.79(H) 3.80 - 9.90 K/cumm Hgb 11.4(L) 13.0 - 17.5 g/dL [facility] Hct 36.7(L) 38.9 - 50.3 % [facility] Plt 189 150 - 400 K/cumm [facility] MPV 12.4(H) 9.1 - 12.3 fL [facility] RBC 3.95(L) 4.30 - 5.80 M/cumm [facility] MCV 92.9 81.3 - 96.4 fL [facility] MCH 28.9 27.1 - 33.3 pg [facility] MCHC 31.1(L) 32.3 - 35.7 g/dL [facility] RDW CV 15.3(H) 11.1 - 14.9 % [facility] RDW SD 53.0(H) 35.7 - 48.1 fL [facility] NRBC abs 0.00 0.00 - 0.01 K/cumm [facility] Blood 02/25/2025 3:40 AM CDT 02/25/2025 3:44 AM CDT Maryjo Deshpande MD LAB BLOOD ORDERABLES Final R esult Performing Organization Address City/[facility]/ZIP Co de Phone Number [facility] [address] [facility] [place] [address] * Magnesium (02/25/2025 3:40 AM CDT) Pathologist [facility] Magnesium 2.5 1.4 - 2.5 mg/dL Blood 02/25/2025 3:40 AM CDT 02/25/2025 3:44 AM CDT us Maryjo Deshpande MD LAB BLOOD ORDERABLES Final R esult [facility] [address] Department [place] [address] * (ABNORMAL) Renal function panel (02/25/2025 3:40 AM CDT) Pathologist [facility] Sodium 136 135 - 145 mmol/L Potassium, pl 3.1(L) 3.3 - 4.9 mmol/L [facility] Chloride 98 97 - 110 mmol/L [facility] CO2 21(L) 22 - 32 mmol/L [facility] Anion gap 17(H) 2 - 15 mmol/L [facility] BUN 54(H) 6 - 25 mg/dL [facility] Creatinine 1.75(H) 0.80 - 1.30 mg/dL [facility] Glucose 249(H) 70 - 199 mg/dL [facility] Comment: Interpretive Data Fasting glucose >/= 126 [...] 2022. Calcium 7.6(L) 8.5 - 10.3 mg/dL [facility] Phosphorus, pl 3.4 2.3 - 4.5 mg/dL [facility] Albumin 2.5(L) 3.5 - 5.0 g/dL [facility] Blood 02/25/2025 3:40 AM CDT 02/25/2025 3:44 AM CDT Maryjo Deshpande MD LAB BLOOD ORDERABLES Final R esult Performing Organization Address [facility] Co de Phone Number [facility] [address] Department of [employer] [place], [place] [phone] * (ABNORMAL) POCT glucose (02/25/2025 12:17 AM CDT) Glucose, POC 208(H) 70 - 199 mg/dL Comment: For Glucose values <35 mg/dl when Hematocrit is >60 mg/dl,the test may not accurately detect significant hypoglycemia,and testing in the Laboratory should be considered if clinically indicated. POC Performer [id number] [facility] Blood 02/25/2025 12:1 7 AM CDT 02/25/2025 12:17 AM CDT Maryjo Deshpande MD LAB POCT ORDERABLES - DEVICE Final Result Performing Organization Address [facility] Co de Phone Number [facility] [address] Department of [employer] [place], [place] [phone] * (ABNORMAL) POCT glucose (02/24/2025 7:49 PM CDT) Glucose, POC 244(H) 70 - 199 mg/dL Comment: For Glucose values <35 mg/dl when Hematocrit is >60 mg/dl,the test may not accurately detect significant hypoglycemia,and testing in the Laboratory should be considered if clinically indicated. POC Performer [id number] [facility] Blood 02/24/2025 7:49 PM CDT 02/24/2025 7:49 PM CDT Maryjo Deshpande MD LAB POCT ORDERABLES - DEVICE Final Result Performing Organization Address [facility] Co de Phone Number [facility] [address] Department of [employer] [place], [place] [phone] * (ABNORMAL) POCT glucose (02/24/2025 3:21 PM CDT) Glucose, POC 227(H) 70 - 199 mg/dL Comment: For Glucose values <35 mg/dl when Hematocrit is >60 mg/dl,the test may not accurately detect significant hypoglycemia,and testing in the Laboratory should be considered if clinically indicated. POC Performer [id number] [facility] Blood 02/24/2025 3:21 PM CDT 02/24/2025 3:21 PM CDT us Maryjo Deshpande MD LAB POCT ORDERABLES - DEVICE Final Result Performing Organization Address [facility]/ZIP Co de Phone Number [facility] [address] [place] [address] * Potassium (02/24/2025 1:17 PM CDT) Pathologist [facility] Potassium, pl 3.7 3.3 - 4.9 mmol/L Comment:Hemolyzed; potassium value may be falsely elevated by as much as 0.3 - 0.5 mmol/L. Suggest redraw and reanalysis Blood 02/24/2025 1:17 PM CDT 02/24/2025 1:31 PM CDT Narrative [facility] - 02/24/2025 1:50 PM CDT Draw 4 hours after second potassium chloride dose completed. us Teodoro Nassar MD LAB BLOOD ORDERABLES Final R esult Performing Organization Address [facility]/ZIP Co de Phone Number [facility] [address] Department [employer] [place], [place] [phone] * POCT glucose (02/24/2025 11:35 AM CDT) Glucose, POC 196 70 - 199 mg/dL Comment: For Glucose values <35 mg/dl when Hematocrit is >60 mg/dl,the test may not accurately detect significant hypoglycemia,and testing in the Laboratory should be considered if clinically indicated. POC Performer [id number] [facility] Blood 02/24/2025 11:3 5 AM CDT 02/24/2025 11:35 AM CDT Maryjo Deshpande MD LAB POCT ORDERABLES - DEVICE Final Result Performing Organization Address [facility] Co de Phone Number [facility] [address] [facility] [place] [address] * (ABNORMAL) POCT glucose (02/24/2025 7:19 AM CDT) Glucose, POC 233(H) 70 - 199 mg/dL Comment: For Glucose values <35 mg/dl when Hematocrit is >60 mg/dl,the test may not accurately detect significant hypoglycemia,and testing in the Laboratory should be considered if clinically indicated. POC Performer [id number] [facility] Blood 02/24/2025 7:19 AM CDT 02/24/2025 7:19 AM CDT Maryjo Deshpande MD LAB POCT ORDERABLES - DEVICE Final Result Performing Organization Address [facility] de Phone Number [facility] [address] [facility] [place] [address] * (ABNORMAL) POCT glucose (02/24/2025 4:23 AM CDT) Glucose, POC 250(H) 70 - 199 mg/dL Comment: For Glucose values <35 mg/dl when Hematocrit is >60 mg/dl,the test may not accurately detect significant hypoglycemia,and testing in the Laboratory should be considered if clinically indicated. POC Performer [id number] [facility] Blood 02/24/2025 4:23 AM CDT 02/24/2025 4:23 AM CDT Maryjo Deshpande MD LAB POCT ORDERABLES - DEVICE Final Result Performing Organization Address [facility] Co de Phone Number [facility] [address] Department [employer] [place], [place] [phone] * XR Chest 1 View (02/24/2025 3:59 [...] MD LAB BLOOD ORDERABLES Final R esult [facility] [address] [place] [address] * (ABNORMAL) CBC without differential (02/24/2025 3:27 AM CDT) WBC 14.37(H) 3.80 - 9.90 K/cumm Hgb 12.7(L) 13.0 - 17.5 g/dL [facility] Hct 42.1 38.9 - 50.3 % [facility] Plt 189 150 - 400 K/cumm [facility] MPV 11.8 9.1 - 12.3 fL [facility] RBC 4.37 4.30 - 5.80 M/cumm [facility] MCV 96.3 81.3 - 96.4 fL [facility] MCH 29.1 27.1 - 33.3 pg [facility] MCHC 30.2(L) 32.3 - 35.7 g/dL [facility] RDW CV 15.5(H) 11.1 - 14.9 % [facility] RDW SD 55.8(H) 35.7 - 48.1 fL [facility] NRBC abs 0.00 0.00 - 0.01 K/cumm [facility] Blood 02/24/2025 3:27 AM CDT 02/24/2025 3:38 AM CDT Maryjo Deshpande MD LAB BLOOD ORDERABLES Final R esult Performing Organization Address [place]/[facility]/ZIP Co de Phone Number [facility] [address] Department of [employer] [place], [place] [phone] * (ABNORMAL) Magnesium (02/24/2025 3:27 AM CDT) Magnesium 2.6(H) 1.4 - 2.5 mg/dL Blood 02/24/2025 3:27 AM CDT 02/24/2025 3:39 AM CDT Maryjo Deshpande MD LAB BLOOD ORDERABLES Final R esult Performing Organization Address [facility] Co de Phone Number [facility] [address] [place] [address] * (ABNORMAL) Renal function panel (02/24/2025 3:27 AM CDT) Sodium 145 135 - 145 mmol/L Potassium, pl 3.0(L) 3.3 - 4.9 mmol/L [facility] Chloride 103 97 - 110 mmol/L [facility] CO2 23 22 - 32 mmol/L [facility] Anion gap 19(H) 2 - 15 mmol/L [facility] BUN 60(H) 6 - 25 mg/dL [facility] Creatinine 1.90(H) 0.80 - 1.30 mg/dL [facility] Glucose 229(H) 70 - 199 mg/dL [facility] Comment: Interpretive Data Fasting glucose >/= 126 [...] 2022. Calcium 8.4(L) 8.5 - 10.3 mg/dL [facility] Phosphorus, pl 3.9 2.3 - 4.5 mg/dL [facility] Albumin 2.8(L) 3.5 - 5.0 g/dL [facility] Blood 02/24/2025 3:27 AM CDT 02/24/2025 3:39 AM CDT Maryjo Deshpande MD LAB BLOOD ORDERABLES Final R esult Performing Organization Address [facility]/ZIP Co de Phone Number [facility] [address] [facility] [employer] [place], [place] [phone] * (ABNORMAL) POCT glucose (02/24/2025 12:01 AM CDT) Glucose, POC 258(H) 70 - 199 mg/dL Comment: For Glucose values <35 mg/dl when Hematocrit is >60 mg/dl,the test may not accurately detect significant hypoglycemia,and testing in the Laboratory should be considered if clinically indicated. POC Performer [id number] [facility] Blood 02/24/2025 12:0 1 AM CDT 02/24/2025 12:01 AM CDT us Maryjo Deshpande MD LAB POCT ORDERABLES - DEVICE Final Result Performing Organization Address [facility] Co de Phone Number [facility] [address] [facility] [place] [address] * (ABNORMAL) POCT glucose (02/23/2025 8:43 PM CDT) Glucose, POC 244(H) 70 - 199 mg/dL Comment: For Glucose values <35 mg/dl when Hematocrit is >60 mg/dl,the test may not accurately detect significant hypoglycemia,and testing in the Laboratory should be considered if clinically indicated. POC Performer [id number] [facility] Blood 02/23/2025 8:43 PM CDT 02/23/2025 8:43 PM CDT Maryjo Deshpande MD LAB POCT ORDERABLES - DEVICE Final Result Performing Organization Address [facility] Co de Phone Number [facility] [address] [place] [address] * (ABNORMAL) POCT glucose (02/23/2025 4:22 PM CDT) Glucose, POC 225(H) 70 - 199 mg/dL Comment: For Glucose values <35 mg/dl when Hematocrit is >60 mg/dl,the test may not accurately detect significant hypoglycemia,and testing in the Laboratory should be considered if clinically indicated. POC Performer [id number] [facility] Blood 02/23/2025 4:22 PM CDT 02/23/2025 4:22 PM CDT Maryjo Deshpande MD LAB POCT ORDERABLES - DEVICE Final Result Performing Organization Address [facility] Co de Phone Number [facility] [address] [place] [address] * POCT glucose (02/23/2025 12:28 PM CDT) Glucose, POC 195 70 - 199 mg/dL Comment: For Glucose values <35 mg/dl when Hematocrit is >60 mg/dl,the test may not accurately detect significant hypoglycemia,and testing in the Laboratory should be considered if clinically indicated. POC Performer [id number] [facility] Blood 02/23/2025 12:2 8 PM CDT 02/23/2025 12:28 PM CDT Maryjo Deshpande MD LAB POCT ORDERABLES - DEVICE Final Result Performing Organization Address [facility] Co de Phone Number [facility] [address] [place] [address] * POCT glucose (02/23/2025 8:16 AM CDT) Pathologist [facility] Glucose, POC 166 70 - 199 mg/dL Comment: For Glucose values <35 mg/dl when Hematocrit is >60 mg/dl,the test may not accurately detect significant hypoglycemia,and testing in the Laboratory should be considered if clinically indicated. POC Performer [id number] [facility] Blood 02/23/2025 8:16 AM CDT 02/23/2025 8:16 AM CDT Evgeny Villalba MD LAB POCT ORDERABLES - DEV ICE Final Result Performing Organization Address [place]/[facility]/ZIP Co de Phone Number [facility] [address] [place] [address] * (ABNORMAL) eGFR (02/23/2025 4:10 AM CDT) [facility] eGFR 43(L) >=60 mL/min/1. 73 m2 Comment: [...] MD LAB BLOOD ORDERABLES Madhavi l Result [facility] [address] [place] [address] * (ABNORMAL) Pro B-type natriuretic peptide (02/23/2025 [...] BLOOD ORDERABLES Madhavi de luna Result [facility] [address] [place] [address] * Magnesium (02/23/2025 4:10 AM CDT) Pathologist [facility] Magnesium 2.5 1.4 - 2.5 mg/dL Blood 02/23/2025 4:10 AM CDT 02/23/2025 4:19 AM CDT Evgeny Villalba MD LAB BLOOD ORDERABLES Madhavi l Result [facility] [address] [place] [address] * (ABNORMAL) Basic metabolic panel (02/23/2025 4:10 AM CDT) Pathologist [facility] Sodium 151(H) 135 - 145 mmol/L Potassium, pl 3.8 3.3 - 4.9 mmol/L [facility] Chloride 109 97 - 110 mmol/L [facility] CO2 24 22 - 32 mmol/L [facility] Anion gap 18(H) 2 - 15 mmol/L [facility] BUN 56(H) 6 - 25 mg/dL [facility] Creatinine 1.68(H) 0.80 - 1.30 mg/dL [facility] Glucose 159 70 - 199 mg/dL [facility] Comment: Interpretive Data Fasting glucose >/= 126 [...] 2022. Calcium 8.6 8.5 - 10.3 mg/dL [facility] Blood 02/23/2025 4:10 AM CDT 02/23/2025 4:19 AM CDT Evgeny Villalba MD LAB BLOOD ORDERABLES Madhavi l Result Performing Organization Address [facility] Co de Phone Number [facility] [address] [facility] [employer] [place], [place] [phone] * POCT glucose (02/23/2025 3:59 AM CDT) Glucose, POC 138 70 - 199 mg/dL Comment: For Glucose values <35 mg/dl when Hematocrit is >60 mg/dl,the test may not accurately detect significant hypoglycemia,and testing in the Laboratory should be considered if clinically indicated. POC Performer [id number] [facility] Blood 02/23/2025 3:59 AM CDT 02/23/2025 3:59 AM CDT Evgeny Villalba MD LAB POCT ORDERABLES - DEV ICE Final Result Performing Organization Address [facility] de Phone Number [facility] [address] [facility] [place] [address] * POCT glucose (02/22/2025 11:31 PM CDT) Glucose, POC 127 70 - 199 mg/dL Comment: For Glucose values <35 mg/dl when Hematocrit is >60 mg/dl,the test may not accurately detect significant hypoglycemia,and testing in the Laboratory should be considered if clinically indicated. POC Performer [phone] [facility] Blood 02/22/2025 11:3 1 PM CDT 02/22/2025 11:31 PM CDT Evgeny Villalba MD LAB POCT ORDERABLES - DEV ICE Final Result Performing Organization Address [facility] Co de Phone Number [facility] [address] [facility] [employer] [place], [place] [phone] * (ABNORMAL) eGFR (02/22/2025 10:45 PM CDT) [...] ORDERABLES Final R esult Performing Organization Address City/[facility]/ZIP Co de Phone Number [facility] [address] [place] [place] [address] * Magnesium (02/22/2025 10:45 PM CDT) Magnesium 2.5 1.4 - 2.5 mg/dL Blood 02/22/2025 10:4 5 PM CDT 02/22/2025 11:07 PM CDT Teodoro Nassar MD LAB BLOOD ORDERABLES Final R esult [facility] [address] [employer] [place], [place] [phone] * (ABNORMAL) Basic metabolic panel (02/22/2025 10:45 PM CDT) Sodium 153(H) 135 - 145 mmol/L Potassium, pl 3.5 3.3 - 4.9 mmol/L [facility] Chloride 109 97 - 110 mmol/L [facility] CO2 25 22 - 32 mmol/L [facility] Anion gap 19(H) 2 - 15 mmol/L [facility] BUN 53(H) 6 - 25 mg/dL [facility] Creatinine 1.51(H) 0.80 - 1.30 mg/dL [facility] Glucose 138 70 - 199 mg/dL [facility] Comment: Interpretive Data Fasting glucose >/= 126 [...] 2022. Calcium 8.6 8.5 - 10.3 mg/dL [facility] Blood 02/22/2025 10:4 5 PM CDT 02/22/2025 11:07 PM CDT us Teodoro Nassar MD LAB BLOOD ORDERABLES Final R esult [facility] [address] [place] [address] * (ABNORMAL) POCT glucose (02/22/2025 8:04 PM CDT) Glucose, POC 201(H) 70 - 199 mg/dL Comment: For Glucose values <35 mg/dl when Hematocrit is >60 mg/dl,the test may not accurately detect significant hypoglycemia,and testing in the Laboratory should be considered if clinically indicated. POC Performer [id number] [facility] Blood 02/22/2025 8:04 PM CDT 02/22/2025 8:04 PM CDT us Evgeny Villalba MD LAB POCT ORDERABLES - DEV ICE Final Result Performing Organization Address City/[facility]/ZIP Co de Phone Number [facility] [address] [place] [address] * (ABNORMAL) POCT glucose (02/22/2025 5:07 PM CDT) Glucose, POC 288(H) 70 - 199 mg/dL Comment: For Glucose values <35 mg/dl when Hematocrit is >60 mg/dl,the test may not accurately detect significant hypoglycemia,and testing in the Laboratory should be considered if clinically indicated. POC Performer [id number] [facility] Blood 02/22/2025 5:07 PM CDT 02/22/2025 5:07 PM CDT Evgeny Villalba MD LAB POCT ORDERABLES - DEV ICE Final Result Performing Organization Address [facility] Co de Phone Number [facility] [address] [place] [address] * XR Kub (02/22/2025 4:30 PM CDT) [...] PCO2, Arterial 59(H) 35 - 45 mmHg [facility] PO2, Arterial 304(H) 83 - 108 mmHg [facility] HCO3 Art (Calculated) 28 20 - 30 mmol/L [facility] BE, art 0 mmol/L [facility] Comment: Interpretive Data No Reference Range Established Current Interpretive Data was last revised on 2017 O2 Sat Art (Calculated) 100(H) 94 - 98 % [facility] Blood 02/22/2025 3:34 PM CDT 02/22/2025 3:36 PM CDT us Evgeny Villalba MD LAB BLOOD ORDERABLES Madhavi de luna Result [facility] [address] [place] [address] * XR Chest 1 View (02/22/2025 3:12 [...] be considered if clinically indicated. POC Performer [id number] [facility] Blood 02/22/2025 11:5 6 AM CDT 02/22/2025 11:56 AM CDT Evgeny Villalba MD LAB POCT ORDERABLES - DEV ICE Final Result Performing Organization Address [facility] Co de Phone Number [facility] [address] [facility] [place] [address] * (ABNORMAL) POCT glucose (02/22/2025 7:14 AM CDT) Glucose, POC 232(H) 70 - 199 mg/dL Comment: For Glucose values <35 mg/dl when Hematocrit is >60 mg/dl,the test may not accurately detect significant hypoglycemia,and testing in the Laboratory should be considered if clinically indicated. POC Performer [id number] [facility] Blood 02/22/2025 7:14 AM CDT 02/22/2025 7:14 AM CDT Evgeny Villalba MD LAB POCT ORDERABLES - DEV ICE Final Result Performing Organization Address [facility] Co de Phone Number [facility] [address] [facility] [place] [address] * (ABNORMAL) POCT glucose (02/22/2025 3:59 AM CDT) Glucose, POC 260(H) 70 - 199 mg/dL Comment: For Glucose values <35 mg/dl when Hematocrit is >60 mg/dl,the test may not accurately detect significant hypoglycemia,and testing in the Laboratory should be considered if clinically indicated. POC Performer [phone] [facility] Blood 02/22/2025 3:59 AM CDT 02/22/2025 3:59 AM CDT Evgeny Villalba MD LAB POCT ORDERABLES - DEV ICE Final Result [facility] [address] [place] [address] * XR Chest 1 View (02/22/2025 3:33 [...] * eGFR (02/22/2025 2:13 AM CDT) Pathologist [facility] eGFR 64 >=60 mL/min/1. 73 m2 Comment: [...] ORDERABLES Madhavi l Result Performing Organization Address City/[facility] Co de Phone Number [facility] [address] [employer] [place], [place] [phone] * Magnesium (02/22/2025 2:13 AM CDT) [facility] Magnesium 2.4 1.4 - 2.5 mg/dL Blood 02/22/2025 2:13 AM CDT 02/22/2025 2:19 AM CDT Evgeny Villalba MD LAB BLOOD ORDERABLES Madhavi l Result Performing Organization Address City/[facility]/ZIP Co de Phone Number [facility] [address] [place] [address] * (ABNORMAL) Basic metabolic panel (02/22/2025 2:13 AM CDT) [facility] Sodium 151(H) 135 - 145 mmol/L Potassium, pl 4.4 3.3 - 4.9 mmol/L [facility] Chloride 112(H) 97 - 110 mmol/L [facility] CO2 25 22 - 32 mmol/L [facility] Anion gap 14 2 - 15 mmol/L [facility] BUN 44(H) 6 - 25 mg/dL [facility] Creatinine 1.20 0.80 - 1.30 mg/dL [facility] Glucose 256(H) 70 - 199 mg/dL [facility] Comment: Interpretive Data Fasting glucose >/= 126 [...] 2022. Calcium 8.6 8.5 - 10.3 mg/dL [facility] Blood 02/22/2025 2:13 AM CDT 02/22/2025 2:19 AM CDT us Evgeny Villalba MD LAB BLOOD ORDERABLES Madhavi de luna Result [facility] [address] [place] [address] * (ABNORMAL) POCT glucose (02/21/2025 11:38 PM CDT) [facility] Glucose, POC 229(H) 70 - 199 mg/dL Comment: For Glucose values <35 mg/dl when Hematocrit is >60 mg/dl,the test may not accurately detect significant hypoglycemia,and testing in the Laboratory should be considered if clinically indicated. POC Performer [id number] [facility] Blood 02/21/2025 11:3 8 PM CDT 02/21/2025 11:38 PM CDT Evgeny Villalba MD LAB POCT ORDERABLES - DEV ICE Final Result Performing Organization Address City/[facility]/ZIP Co de Phone Number [facility] [address] [place] [address] * (ABNORMAL) POCT glucose (02/21/2025 7:44 PM CDT) Glucose, POC 283(H) 70 - 199 mg/dL Comment: For Glucose values <35 mg/dl when Hematocrit is >60 mg/dl,the test may not accurately detect significant hypoglycemia,and testing in the Laboratory should be considered if clinically indicated. POC Performer [id number] [facility] Blood 02/21/2025 7:44 PM CDT 02/21/2025 7:44 PM CDT Evgeny Villalba MD LAB POCT ORDERABLES - DEV ICE Final Result Performing Organization Address [facility] Co de Phone Number [facility] [address] Department [employer] [place], [place] [phone] * (ABNORMAL) POCT glucose (02/21/2025 3:52 PM CDT) Glucose, POC 240(H) 70 - 199 mg/dL Comment: For Glucose values <35 mg/dl when Hematocrit is >60 mg/dl,the test may not accurately detect significant hypoglycemia,and testing in the Laboratory should be considered if clinically indicated. POC Performer [id number] [facility] Blood 02/21/2025 3:52 PM CDT 02/21/2025 3:52 PM CDT Result [facility] Evgeny Villalba MD LAB POCT ORDERABLES - DEV ICE Final Result Performing Organization Address City/[facility]/ZIP Co de Phone Number [facility] [address] [place] [address] * (ABNORMAL) POCT glucose (02/21/2025 11:17 AM CDT) Glucose, POC 217(H) 70 - 199 mg/dL Comment: For Glucose values <35 mg/dl when Hematocrit is >60 mg/dl,the test may not accurately detect significant hypoglycemia,and testing in the Laboratory should be considered if clinically indicated. POC Performer [id number] [facility] Blood 02/21/2025 11:1 7 AM CDT 02/21/2025 11:17 AM CDT Evgeny Villalba MD LAB POCT ORDERABLES - DEV ICE Final Result Performing Organization Address [facility] Co de Phone Number [facility] [address] [employer] [place], [place] [phone] * (ABNORMAL) POCT glucose (02/21/2025 7:24 AM CDT) Glucose, POC 216(H) 70 - 199 mg/dL Comment: For Glucose values <35 mg/dl when Hematocrit is >60 mg/dl,the test may not accurately detect significant hypoglycemia,and testing in the Laboratory should be considered if clinically indicated. POC Performer [id number] [facility] Blood 02/21/2025 7:24 AM CDT 02/21/2025 7:24 AM CDT Evgeny Villalba MD LAB POCT ORDERABLES - DEV ICE Final Result Performing Organization Address City/[facility]/ZIP Co de Phone Number [facility] [address] Department [employer] [place], [place] [phone] * Magnesium - Add on lab test (02/21/2025 5:14 AM CDT) Acceptable Yes Blood 02/21/2025 5:14 AM CDT 02/21/2025 5:14 AM CDT [facility] [facility] - 02/21/2025 5:16 AM CDT Name of Test->Magnesium Luis M Vasquez MD LAB BLOOD ORDERABLES Final Result Performing Organization Address City/[facility]/ZIP Co de Phone Number [facility] [address] [place] [address] * BMP - Add on lab test (02/21/2025 5:14 AM CDT) Acceptable No Blood 02/21/2025 5:14 AM CDT 02/21/2025 5:14 AM CDT Narrative [facility] - 02/21/2025 5:16 AM CDT Name of Test->BMP Luis M Vasquez MD LAB BLOOD ORDERABLES Final Result Performing Organization Address [facility] Co de Phone Number [facility] [address] [place] [address] * XR Chest 1 View (02/21/2025 4:31 AM CDT) Anatomical Region Laterality Modality Body, Chest N/A Computed Radiogr aphy 02/21/2025 4:45 AM CDT Impressions 02/21/2025 4:45 AM CDT Endotracheal tube tip is 2.5 cm above the marisela. Gastric tube courses below the diaphragm and tip projects below the [id number]. Median sternotomy wires are unchanged. Stable small [...] tube tip is 2.5 cm above the mariesla. Gastric tube courses below the diaphragm and tip projects below the [id number]-[id number]. Median sternotomy wires are unchanged. Stable small [...] LAB BLOOD ORDERABLES F inal Result [facility] [address] [place] [address] * (ABNORMAL) eGFR (02/21/2025 3:13 AM CDT) [...] DO LAB BLOOD ORDERABLES F inal Result [facility] [address] [place] [address] * (ABNORMAL) Differential, auto (02/21/2025 3:13 AM CDT) Pathologist [facility] Neutrophil abs 9.98(H) 1.50 - 6.50 K/cumm Imm gran abs 0.10 0.00 - 0.10 K/cumm [facility] Lymphocyte abs 1.65 0.80 - 3.30 K/cumm [facility] Monocyte abs 1.38(H) 0.20 - 0.80 K/cumm [facility] Eosinophil abs 0.01 0.00 - 0.50 K/cumm [facility] Basophil abs 0.04 0.00 - 0.10 K/cumm [facility] Neutrophil pct 75.8 % [facility] Comment: Interpretive Data Percent cell count reference ranges are not reported, since discordance with absolute values may lead to misinterpretation of CBC data. Current Interpretive Data was last revised on 2018. Imm gran pct 0.8 % [facility] Comment: Interpretive Data Percent cell count reference ranges are not reported, since discordance with absolute values may lead to misinterpretation of CBC data. Current Interpretive Data was last revised on 2018. Lymphocyte pct 12.5 % [facility] Comment: Interpretive Data Percent cell count reference ranges are not reported, since discordance with absolute values may lead to misinterpretation of CBC data. Current Interpretive Data was last revised on 2018. Monocyte pct 10.5 % [facility] Comment: Interpretive Data Percent cell count reference ranges are not reported, since discordance with absolute values may lead to misinterpretation of CBC data. Current Interpretive Data was last revised on 2018. Eosinophil pct 0.1 % [facility] Comment: Interpretive Data Percent cell count reference ranges are not reported, since discordance with absolute values may lead to misinterpretation of CBC data. Current Interpretive Data was last revised on 2018. Basophil pct 0.3 % [facility] Comment: Interpretive Data Percent cell count reference ranges are not reported, since discordance with absolute values may lead to misinterpretation of CBC data. Current Interpretive Data was last revised on 2018. Blood 02/21/2025 3:13 AM CDT 02/21/2025 3:56 AM CDT Rehana Mackeyjerzy DO LAB BLOOD ORDERABLES F inal Result Performing Organization Address [facility]/ZIP Co de Phone Number [facility] [address] [place] [address] * (ABNORMAL) Procalcitonin (02/21/2025 3:13 AM CDT) [facility] Procalcitonin 1.03(H) <=0.25 ng/mL Blood 02/21/2025 3:13 AM CDT 02/21/2025 3:56 AM CDT Rehana Camposleonardo [place] DO LAB BLOOD ORDERABLES F inal Result Performing Organization Address [facility] Co de Phone Number [facility] [address] [employer] [place], [place] [phone] * (ABNORMAL) CBC with auto differential (02/21/2025 3:13 AM CDT) [facility] WBC 13.16(H) 3.80 - 9.90 K/cumm Hgb 13.1 13.0 - 17.5 g/dL [facility] Hct 43.9 38.9 - 50.3 % [facility] Plt 176 150 - 400 K/cumm [facility] MPV 11.6 9.1 - 12.3 fL [facility] RBC 4.56 4.30 - 5.80 M/cumm [facility] MCV 96.3 81.3 - 96.4 fL [facility] MCH 28.7 27.1 - 33.3 pg [facility] MCHC 29.8(L) 32.3 - 35.7 g/dL [facility] RDW CV 15.9(H) 11.1 - 14.9 % [facility] RDW SD 56.6(H) 35.7 - 48.1 fL [facility] NRBC abs 0.00 0.00 - 0.01 K/cumm [facility] Blood 02/21/2025 3:13 AM CDT 02/21/2025 3:56 AM CDT [employer] Violetta DO LAB BLOOD ORDERABLES F inal Result Performing Organization Address City/[facility]/ZIP Co de Phone Number [place] [address] [facility] [employer] [place], [place] [phone] * Phosphorus (02/21/2025 3:13 AM CDT) Phosphorus, pl 3.0 2.3 - 4.5 mg/dL Blood 02/21/2025 3:13 AM CDT 02/21/2025 3:56 AM CDT Rehana Kaylan [place] DO LAB BLOOD ORDERABLES F inal Result Performing Organization Address [facility] Co de Phone Number [place] [address] [place] [address] * Magnesium (02/21/2025 3:13 AM CDT) Magnesium 2.3 1.4 - 2.5 mg/dL Blood 02/21/2025 3:13 AM CDT 02/21/2025 3:56 AM CDT Erhana Kaylan Remotemedicaljerzy DO LAB BLOOD ORDERABLES F inal Result [facility] [address] Department of [employer] [place], [place] [phone] * (ABNORMAL) Comprehensive metabolic panel (02/21/2025 3:13 AM CDT) Sodium 147(H) 135 - 145 mmol/L Potassium, pl 4.1 3.3 - 4.9 mmol/L [facility] Chloride 111(H) 97 - 110 mmol/L [facility] CO2 23 22 - 32 mmol/L [facility] Anion gap 13 2 - 15 mmol/L [facility] BUN 37(H) 6 - 25 mg/dL [facility] Creatinine 1.37(H) 0.80 - 1.30 mg/dL [facility] Glucose 213(H) 70 - 199 mg/dL [facility] Comment: Interpretive Data Fasting glucose >/= 126 [...] 2022. Calcium 8.3(L) 8.5 - 10.3 mg/dL [facility] Bilirubin, total 0.5 0.1 - 1.2 mg/dL [facility] Protein, pl 6.3(L) 6.5 - 8.5 g/dL [facility] Albumin 2.9(L) 3.5 - 5.0 g/dL [facility] Alk phos 82 40 - 130 Units/L [facility] ALT 8 7 - 55 Units/L [facility] AST 18 10 - 50 Units/L [facility] Blood 02/21/2025 3:13 AM CDT 02/21/2025 3:56 AM CDT us Rehana [place] DO LAB BLOOD ORDERABLES F inal Result [facility] [address] [place] [address] * POCT glucose (02/21/2025 3:01 AM CDT) Glucose, POC 198 70 - 199 mg/dL Comment: For Glucose values <35 mg/dl when Hematocrit is >60 mg/dl,the test may not accurately detect significant hypoglycemia,and testing in the Laboratory should be considered if clinically indicated. POC Performer [phone] [facility] Blood 02/21/2025 3:01 AM CDT 02/21/2025 3:01 AM CDT Rehana Kaylan Remotemedicaljerzy LAB POCT ORDERABLES - DEVICE Final Result Performing Organization Address [facility] Co de Phone Number [facility] [address] [place] [address] * (ABNORMAL) POCT glucose (02/20/2025 11:57 PM CDT) Glucose, POC 204(H) 70 - 199 mg/dL Comment: For Glucose values <35 mg/dl when Hematocrit is >60 mg/dl,the test may not accurately detect significant hypoglycemia,and testing in the Laboratory should be considered if clinically indicated. POC Performer [id number] [facility] Blood 02/20/2025 11:5 7 PM CDT 02/20/2025 11:57 PM CDT Rehana Kaylan [place] LAB POCT ORDERABLES - DEVICE Final Result Performing Organization Address [facility]/ZIP Co de Phone Number [facility] [address] [facility] [place] [address] * POCT glucose (02/20/2025 7:40 PM CDT) Glucose, POC 166 70 - 199 mg/dL Comment: For Glucose values <35 mg/dl when Hematocrit is >60 mg/dl,the test may not accurately detect significant hypoglycemia,and testing in the Laboratory should be considered if clinically indicated. POC Performer [id number] [facility] Blood 02/20/2025 7:40 PM CDT 02/20/2025 7:40 PM CDT Rehana [place] [employer] LAB POCT ORDERABLES - DEVICE Final Result Performing Organization Address [facility]/ZIP Co de Phone Number [facility] [address] Department of Laboratories [place], [place] [phone] * (ABNORMAL) POCT glucose (02/20/2025 5:38 PM CDT) Glucose, POC 214(H) 70 - 199 mg/dL Comment: For Glucose values <35 mg/dl when Hematocrit is >60 mg/dl,the test may not accurately detect significant hypoglycemia,and testing in the Laboratory should be considered if clinically indicated. POC Performer [id number] [facility] Blood 02/20/2025 5:38 PM CDT 02/20/2025 5:38 PM CDT Rehana Mackeyjerzy [employer] LAB POCT ORDERABLES - DEVICE Final Result Performing Organization Address City/[facility]/ZIP Co de Phone Number [facility] [address] Department of [employer] [place], [place] [phone] * (ABNORMAL) eGFR (02/20/2025 5:36 PM CDT) [...] ORDERABLES F inal Result Performing Organization Address [facility] de Phone Number [facility] [address] [place] [address] * Strep pneumoniae antigen, urine Urine (02/20/2025 [...] ERAL ORDERABLES Final Result Performing Organization Address [facility] de Phone Number [facility] [address] [place] [address] * Legionella antigen Urine (02/20/2025 5:36 PM CDT) Legionella Ag Negative Negative Comment: Interpretive Data This test detects only Legionella pneumophila serogroup 1 antigen. Current interpretive data was last revised on 2019. Urine 02/20/2025 5:36 PM CDT 02/20/2025 5:36 PM CDT Rehana [place] DO LAB MICROBIOLOGY - GEN ERAL ORDERABLES Final Result [facility] [address] [place] [address] * Magnesium (02/20/2025 5:36 PM CDT) [facility] Magnesium 2.2 1.4 - 2.5 mg/dL Blood 02/20/2025 5:36 PM CDT 02/20/2025 5:48 PM CDT Rehana Kaylan Violetta LAB BLOOD ORDERABLES F inal Result Performing Organization Address [facility] Co de Phone Number [facility] [address] [place] [address] * (ABNORMAL) Basic metabolic panel (02/20/2025 5:36 PM CDT) [facility] Sodium 147(H) 135 - 145 mmol/L Potassium, pl 3.8 3.3 - 4.9 mmol/L [facility] Chloride 109 97 - 110 mmol/L [facility] CO2 22 22 - 32 mmol/L [facility] [facility] Anion gap 16(H) 2 - 15 mmol/L [facility] BUN 34(H) 6 - 25 mg/dL [facility] Creatinine 1.49(H) 0.80 - 1.30 mg/dL [facility] Glucose 188 70 - 199 mg/dL [facility] Comment: Interpretive Data Fasting glucose >/= 126 [...] 2022. Calcium 8.0(L) 8.5 - 10.3 mg/dL [facility] Blood 02/20/2025 5:36 PM CDT 02/20/2025 5:48 PM CDT Rehana Mackeyjerzy LAB BLOOD ORDERABLES F inal Result Performing Organization Address [facility] Co de Phone Number [facility] [address] [place] [address] * (ABNORMAL) Troponin T high-sensitivity (02/20/2025 1:08 PM CDT) [facility] Trop T hs 88(H) <=22 ng/L Comment: Interpretive Data For further hscTnT resources including the diagnostic algorithm and an aid in interpretation, copy and paste this link: https://nrl.testcatalog.org/show/hsTrop Current Interpretive Data last revised 2020. Blood 02/20/2025 1:08 PM CDT 02/20/2025 1:14 PM CDT Rehana Kimbrough Violetta LAB BLOOD ORDERABLES F inal Result Performing Organization Address [facility] de Phone Number [facility] [address] [place] [address] * Potassium (02/20/2025 1:08 PM CDT) [facility] Potassium, pl 3.3 3.3 - 4.9 mmol/L Comment:Hemolyzed; potassium value may be falsely elevated by as much as 0.3 - 0.5 mmol/L. Suggest redraw and reanalysis Blood 02/20/2025 1:08 PM CDT 02/20/2025 1:14 PM CDT Narrative [facility] - 02/20/2025 1:32 PM CDT Draw 4 hours after second potassium chloride dose completed. Brayden Roach MD LAB BLOOD ORDERABLES Final Result Performing Organization Address City/[facility]/ZIP Co de Phone Number [facility] [address] [place] [address] * POCT glucose (02/20/2025 1:01 PM CDT) Glucose, POC 193 70 - 199 mg/dL Comment: For Glucose values <35 mg/dl when Hematocrit is >60 mg/dl,the test may not accurately detect significant hypoglycemia,and testing in the Laboratory should be considered if clinically indicated. POC Performer [phone] [facility] Blood 02/20/2025 1:0 1 PM CDT 02/20/2025 1:01 PM CDT us Rehana Shipley DO LAB POCT ORDERABLES - DEVICE Final Result Performing Organization Address [facility] Co de Phone Number [facility] [address] [place] [address] * Blood culture Blood (02/20/2025 10:36 AM CDT) Report Final Report: No growth Blood 02/20/2025 10:3 6 AM CDT 02/20/2025 10:38 AM CDT Narrative [facility] - 02/25/2025 1:00 PM CDT From a [...] organism identification may be performed using the Flashnotes Blood Culture Identification panel. This assay detects microbial DNA in a blood culture broth. This assay has been cleared by the [place] Food and Drug Administration and its performance characteristics have been verified by the [facility]. Interpretive data was last revised on November 09, 2022. us Rehana Shipley LAB MICROBIOLOGY - GEN ERAL ORDERABLES Final Result Performing Organization Address [facility]/ZIP Co de Phone Number [facility] [address] [facility] [place] [address] * Blood culture Blood (02/20/2025 10:36 AM CDT) Report Final Report: No growth Blood 02/20/2025 10:3 6 AM CDT 02/20/2025 10:38 [address] CD[address] [facility] [facility] - 02/25/2025 1:00 PM CDT [...] organism identification may be performed using the [employer] Blood Culture Identification panel. This assay detects microbial DNA in a blood culture broth. This assay has been cleared by the [place] Food and Drug Administration and its performance characteristics have been verified by the [facility]. Interpretive data was last revised on November 09, 2022. Rehana Shipley [facility] MICROBIOLOGY - GEN ERAL ORDERABLES Final Result Performing Organization Address [facility] Co de Phone Number [facility] [address] Department [place] [address] * (ABNORMAL) POCT glucose (02/20/2025 8:48 AM CDT) Glucose, POC 223(H) 70 - 199 mg/dL Comment: For Glucose values <35 mg/dl when Hematocrit is >60 mg/dl,the test may not accurately detect significant hypoglycemia,and testing in the Laboratory should be considered if clinically indicated. POC Performer [phone] [facility] Blood 02/20/2025 8:48 AM CDT 02/20/2025 8:48 AM CDT Rehana Shipley DO LAB POCT ORDERABLES - DEVICE Final Result Performing Organization Address [facility]/ZIP Co de Phone Number [facility] [address] [place] [address] * (ABNORMAL) Aerobic culture and gram stain Tracheal aspirate Lung (02/20/2025 6:57 AM CDT) Direct Specimen Exam Stain: Moderate squamous epithelial cells seen. Many polymorphonuclear leukocytes seen. Moderate mixed bacterial heriberto seen on Gram stain. Report Final Report: Moderate growth of: Escherichia coli Light growth normal heriberto (.) [facility] Organism ESCHERICHIA COLI [facility] Tracheal aspirate (Lung) 02/20/2025 6:57 AM CDT [...] ERAL ORDERABLES Final Result Performing Organization Address [facility] Co de Phone Number [facility] [address] [place] [address] * XR Chest 1 View (02/20/2025 4:15 [...] DO LAB BLOOD ORDERABLES F inal Result [facility] [address] [place] [address] * (ABNORMAL) Differential, auto (02/20/2025 3:06 AM CDT) Neutrophil abs 9.80(H) 1.50 - 6.50 K/cumm Imm gran abs 0.07 0.00 - 0.10 K/cumm [facility] Lymphocyte abs 2.37 0.80 - 3.30 K/cumm [facility] Monocyte abs 1.86(H) 0.20 - 0.80 K/cumm [facility] Eosinophil abs 0.02 0.00 - 0.50 K/cumm [facility] Basophil abs 0.04 0.00 - 0.10 K/cumm [facility] Neutrophil pct 69.3 % [facility] Comment: Interpretive Data Percent cell count reference ranges are not reported, since discordance with absolute values may lead to misinterpretation of CBC data. Current Interpretive Data was last revised on 2018. Imm gran pct 0.5 % [facility] Comment: Interpretive Data Percent cell count reference ranges are not reported, since discordance with absolute values may lead to misinterpretation of CBC data. Current Interpretive Data was last revised on 2018. Lymphocyte pct 16.7 % [facility] Comment: Interpretive Data Percent cell count reference ranges are not reported, since discordance with absolute values may lead to misinterpretation of CBC data. Current Interpretive Data was last revised on 2018. Monocyte pct 13.1 % [facility] Comment: Interpretive Data Percent cell count reference ranges are not reported, since discordance with absolute values may lead to misinterpretation of CBC data. Current Interpretive Data was last revised on 2018. Eosinophil pct 0.1 % [facility] Comment: Interpretive Data Percent cell count reference ranges are not reported, since discordance with absolute values may lead to misinterpretation of CBC data. Current Interpretive Data was last revised on 2018. Basophil pct 0.3 % [facility] Comment: Interpretive Data Percent cell count reference ranges are not reported, since discordance with absolute values may lead to misinterpretation of CBC data. Current Interpretive Data was last revised on 2018. Blood 02/20/2025 3:06 AM CDT 02/20/2025 3:30 AM CDT us Brayden Roach MD LAB BLOOD ORDERABLES Final Result [facility] [address] [place] [address] * (ABNORMAL) CBC with auto differential (02/20/2025 3:06 AM CDT) WBC 14.16(H) 3.80 - 9.90 K/cumm Hgb 12.6(L) 13.0 - 17.5 g/dL [facility] Hct 41.0 38.9 - 50.3 % [facility] Plt 196 150 - 400 K/cumm [facility] MPV 11.0 9.1 - 12.3 fL [facility] RBC 4.32 4.30 - 5.80 M/cumm [facility] MCV 94.9 81.3 - 96.4 fL [facility] MCH 29.2 27.1 - 33.3 pg [facility] MCHC 30.7(L) 32.3 - 35.7 g/dL [facility] RDW CV 15.9(H) 11.1 - 14.9 % [facility] RDW SD 55.6(H) 35.7 - 48.1 fL [facility] NRBC abs 0.00 0.00 - 0.01 K/cumm [facility] Blood 02/20/2025 3:06 AM CDT 02/20/2025 3:30 AM CDT Brayden Roach MD LAB BLOOD ORDERABLES Final Result [facility] [address] [facility] [place] [address] * (ABNORMAL) Phosphorus (02/20/2025 3:06 AM CDT) [facility] Phosphorus, pl 5.0(H) 2.3 - 4.5 mg/dL Blood 02/20/2025 3:06 AM CDT 02/20/2025 3:30 AM CDT Rehana Shipley DO LAB BLOOD ORDERABLES F inal Result Performing Organization Address City/[facility]/ZIP Co de Phone Number [facility] [address] [place] [address] * Magnesium (02/20/2025 3:06 AM CDT) [facility] Magnesium 2.1 1.4 - 2.5 mg/dL Comment:Reviewed Blood 02/20/2025 3:06 AM CDT 02/20/2025 3:30 AM CDT Rehana Shipley DO LAB BLOOD ORDERABLES F inal Result Performing Organization Address [facility]/ZIP Co de Phone Number [facility] [address] [place] [address] * (ABNORMAL) Comprehensive metabolic panel (02/20/2025 3:06 AM CDT) [facility] Sodium 144 135 - 145 mmol/L Potassium, pl 3.2(L) 3.3 - 4.9 mmol/L [facility] Chloride 106 97 - 110 mmol/L [facility] CO2 26 22 - 32 mmol/L [facility] Anion gap 12 2 - 15 mmol/L [facility] BUN 34(H) 6 - 25 mg/dL [facility] Creatinine 1.77(H) 0.80 - 1.30 mg/dL [facility] Glucose 186 70 - 199 mg/dL [facility] Comment: Interpretive Data Fasting glucose >/= 126 [...] 2022. Calcium 8.1(L) 8.5 - 10.3 mg/dL [facility] Bilirubin, total 0.3 0.1 - 1.2 mg/dL [facility] Protein, pl 6.1(L) 6.5 - 8.5 g/dL [facility] Albumin 3.0(L) 3.5 - 5.0 g/dL [facility] Alk phos 88 40 - 130 Units/L [facility] ALT 15 7 - 55 Units/L [facility] AST 21 10 - 50 Units/L [facility] Blood 02/20/2025 3:06 AM CDT 02/20/2025 3:30 AM CDT Rehana Shipley DO LAB BLOOD ORDERABLES F inal Result [facility] [address] [place] [address] * POCT glucose (02/19/2025 7:46 PM CDT) [facility] Signature Glucose, POC 165 70 - 199 mg/dL Comment: For Glucose values <35 mg/dl when Hematocrit is >60 mg/dl,the test may not accurately detect significant hypoglycemia,and testing in the Laboratory should be considered if clinically indicated. POC Performer [phone] [facility] Blood 02/19/2025 7:46 PM CDT 02/19/2025 7:46 PM CDT us Rehanamoise Kimbrough Rem[employer]emed[employer]jerzy [employer] LAB POCT ORDERABLES - DEVICE Final Result Performing Organization Address [facility]/ZIP Co de Phone Number [facility] [address] [employer] [place], [place] [id number] * POCT glucose (02/19/2025 5:46 PM CDT) Glucose, POC 177 70 - 199 mg/dL Comment: For Glucose values <35 mg/dl when Hematocrit is >60 mg/dl,the test may not accurately detect significant hypoglycemia,and testing in the Laboratory should be considered if clinically indicated. POC Performer [phone] [facility] Blood 02/19/2025 5:46 PM CDT 02/19/2025 5:46 PM CDT Rehanamoise Kimbrough Remotemedicaljerzy [employer] LAB POCT ORDERABLES - DEVICE Final Result Performing Organization Address [facility] Co de Phone Number [facility] [address] [place] [address] * (ABNORMAL) eGFR (02/19/2025 3:31 PM CDT) Pathologist [facility] eGFR 47(L) >=60 mL/min/1. 73 m2 Comment: [...] DO LAB BLOOD ORDERABLES F inal Result [facility] [address] [place] [address] * (ABNORMAL) Renal function panel (02/19/2025 3:31 PM CDT) Sodium 149(H) 135 - 145 mmol/L Potassium, pl 4.1 3.3 - 4.9 mmol/L [facility] Comment:Hemolyzed; potassium value may be falsely elevated by as much as 0.6 - 1.0 mmol/L. Suggest redraw and reanalysis Chloride 110 97 - 110 mmol/L [facility] CO2 22 22 - 32 mmol/L [facility] Anion gap 17(H) 2 - 15 mmol/L [facility] BUN 28(H) 6 - 25 mg/dL [facility] Creatinine 1.57(H) 0.80 - 1.30 mg/dL [facility] Glucose 156 70 - 199 mg/dL [facility] Comment: Interpretive Data Fasting glucose >/= 126 [...] 2022. Calcium 8.2(L) 8.5 - 10.3 mg/dL [facility] Phosphorus, pl 5.2(H) 2.3 - 4.5 mg/dL [facility] Albumin 3.2(L) 3.5 - 5.0 g/dL [facility] Blood 02/19/2025 3:31 PM CDT 02/19/2025 3:52 PM CDT us Rehana Shipley DO LAB BLOOD ORDERABLES F inal Result [facility] [address] [place] [address] * TRANSTHORACIC ECHO (TTE) COMPLETE W DOPPLER/CF W CONTRAST (02/19/2025 12:14 PM CDT) Estimated EF 25 % CONS SCIMAGE Anatomical Region Laterality Modality Ultrasound 02/19/2025 7:43 AM CDT Narrative 02/19/2025 12:28 PM CDT [facility] [address] [place] [address] ECHOCARDIOGRAM Patient Name: MAURICIO HEADLEY : 1955 (70y ) Gender: M Study Date: 02/19/2025 07:43:35 AM Ht(Inch): 68 Wt(Lb): 171.96 BSA: 1.93 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: YUMIKO Location: [id number] Order Provider: KARIN RODRIGUEZ BMI: 26.14 BP: [...] right atrial pressures. Exam Interpreted: Read by Beer Cooler of the day to expedite patient care. [...] pressures. Electronically Signed By: Hernan Coley MD [facility] 02/19/2025 12:28:06 PM CDT Wall Motion Analysis - Resting Procedure Note Hernan Coley MD - 02/19/2025 [facility] [address] [place] [address] ECHOCARDIOGRAM Patient Name: MAURICIO HEADLEY : 1955 (70y ) Gender: M Study Date: 02/19/2025 07:43:35 AM Ht(Inch): 68 Wt(Lb): 171.96 BSA: 1.93 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: YUMIKO Location: [address] Order Provider: KARIN RODRIGUEZ BMI: 26.14 [...] intermediateright atrial pressures. Exam Interpreted: Read by Beer Cooler of the day to expedite patientcare. CONCLUSIONS: [...] pressures. Electronically Signed By: Hernan Coley MD [facility] 02/19/2025 12:28:06 PM CDT Wall [...] be considered if clinically indicated. POC Performer [phone] [facility] Blood 02/19/2025 11:3 0 AM CDT 02/19/2025 11:30 AM CDT Rehana Shipley DO LAB POCT ORDERABLES - DEVICE Final Result Performing Organization Address [facility] Co de Phone Number [facility] [address] [place] [address] * Lactate (02/19/2025 10:51 AM CDT) [facility] Lactate 1.5 0.7 - 2.0 mmol/L Blood 02/19/2025 10:5 1 AM CDT 02/19/2025 10:59 AM CDT Rehana Shipley DO LAB BLOOD ORDERABLES F inal Result Performing Organization Address [facility] Co de Phone Number [facility] [address] [place] [address] * (ABNORMAL) Procalcitonin (02/19/2025 10:51 AM CDT) Procalcitonin 3.00(H) <=0.25 ng/mL Blood 02/19/2025 10:5 1 AM CDT 02/19/2025 11:03 AM CDT Rehana Camposleonardo Shipley DO LAB BLOOD ORDERABLES F inal Result [facility] [address] [place] [address] * Respiratory pathogen panel Nasopharyngeal (02/19/2025 10:51 AM CDT) Influenza A RNA Not Detected Not Detected [facility] Influenza B RNA Not Detected Not Detected [facility] RSV RNA Not Detected Not Detected [facility] COVID-19 RNA Not Detected Not Detected [facility] Coronavirus 229E RNA Not Detected Not Detected [facility] Coronavirus HKU1 RNA Not Detected Not Detected [facility] Coronavirus NL63 RNA Not Detected Not Detected [facility] Coronavirus OC43 RNA Not Detected Not Detected [facility] Adenovirus DNA Not Detected Not Detected [facility] Metapneumovirus RNA Not Detected Not Detected [facility] Rhinovirus/Enterov irus RNA Not Detected Not Detected [facility] Parainfluenza 1 RNA Not Detected Not Detected [facility] Parainfluenza 2 RNA Not Detected Not Detected [facility] Parainfluenza 3 RNA Not Detected Not Detected [facility] Parainfluenza 4 RNA Not Detected Not Detected [facility] B. pertussis DNA Not Detected Not Detected [facility] B. parapertussis DNA Not Detected Not Detected [facility] C. pneumoniae DNA Not Detected Not Detected [facility] M. pneumoniae DNA Not Detected Not Detected [facility] Comment: Interpretive Data The [employer] FilmArray Respiratory Panel (RP2.1) assay is a [...] assay has FDA clearance for testing of MOLDER PIPE COVERING swabs. The performance characteristics of this assay have been determined by [facility]. Current interpretive data was last revised on 2021. Nasopharyngeal 02/19/2025 10 :51 AM CDT 02/19/2025 11:04 AM CDT Narrative [facility] - 02/19/2025 11:56 AM CDT Is the Patient experiencing symptoms consistent with COVID?->Unknown Surveillance testing for transplant patient?->No Rehana Shipley DO LAB MICROBIOLOGY - GEN ERAL ORDERABLES Final Result [facility] [address] [place] [address] [facility] * MRSA Only (Staphylococcus aureus) PCR Nasal (02/19/2025 10:51 AM CDT) [facility] PCR Scrn, Methicillin resistant Staphylococcus aureus (MRSA) Not Detected Not Detected Comment: Interpretive Data Testing performed using Nucleic Acid Amplification with the [employer] Xpert MRSA NxG Assay. This assay detects target DNA from mecA, mecC and the SCCmec insertion site of Staphylococcus aureus using Real-Time PCR and has been cleared by the FDA. Performance characteristics have been verified by the [facility]. Current Interpretive Data was last revised on 2023 Nasal 02/19/2025 10:5 1 AM CDT 02/19/2025 11:04 AM CDT Rehana Shipley DO LAB MICROBIOLOGY - GEN ERAL ORDERABLES Final Result Performing Organization Address City/[facility]/ZIP Co de Phone Number [facility] [address] [facility] [place] [address] * Magnesium - Add on lab test (02/19/2025 10:06 AM CDT) Acceptable Yes Blood 02/19/2025 10:0 6 AM CDT 02/19/2025 10:06 AM CDT Narrative [facility] - 02/19/2025 10:07 AM CDT Name of Test->Magnesium Rehana Shipley DO LAB BLOOD ORDERABLES F inal Result Performing Organization Address [facility] Co de Phone Number [facility] [address] [place] [address] * Phosphorus - Add on lab test (02/19/2025 10:06 AM CDT) Acceptable Yes Blood 02/19/2025 10:0 6 AM CDT 02/19/2025 10:06 AM CDT Narrative [facility] 02/19/2025 10:07 AM CDT Name of Test->Phosphorus Rehana Shipley DO LAB BLOOD ORDERABLES F inal Result Performing Organization Address City/[facility]/ZIP Co de Phone Number [facility] [address] [place] [address] * POCT glucose (02/19/2025 9:37 AM CDT) Glucose, POC 130 70 - 199 mg/dL Comment: For Glucose values <35 mg/dl when Hematocrit is >60 mg/dl,the test may not accurately detect significant hypoglycemia,and testing in the Laboratory should be considered if clinically indicated. POC Performer [phone] [facility] Blood 02/19/2025 9:37 AM CDT 02/19/2025 9:37 AM CDT us Rehana Shipley DO LAB POCT ORDERABLES - DEVICE Final Result [facility] [address] [place] [address] * XR Chest 1 View (02/19/2025 8:50 [...] MD LAB BLOOD ORDERABLES Final R esult [facility] [address] [place] [address] * (ABNORMAL) CBC without differential (02/19/2025 3:11 AM CDT) Pathologist [facility] WBC 14.88(H) 3.80 - 9.90 K/cumm Hgb 13.7 13.0 - 17.5 g/dL [facility] Hct 44.7 38.9 - 50.3 % [facility] Plt 235 150 - 400 K/cumm [facility] MPV 11.0 9.1 - 12.3 fL [facility] RBC 4.73 4.30 - 5.80 M/cumm [facility] MCV 94.5 81.3 - 96.4 fL [facility] MCH 29.0 27.1 - 33.3 pg [facility] MCHC 30.6(L) 32.3 - 35.7 g/dL [facility] RDW CV 15.9(H) 11.1 - 14.9 % [facility] RDW SD 55.0(H) 35.7 - 48.1 fL [facility] NRBC abs 0.00 0.00 - 0.01 K/cumm [facility] Blood 02/19/2025 3:11 AM CDT 02/19/2025 3:35 AM CDT Karin Rodriguez MD LAB BLOOD ORDERABLES Final R esult [facility] [address] [place] [address] * (ABNORMAL) Phosphorus (02/19/2025 3:11 AM CDT) Phosphorus, pl 5.5(H) 2.3 - 4.5 mg/dL Blood 02/19/2025 3:11 AM CDT 02/19/2025 3:34 AM CDT Rehana Shipley DO LAB BLOOD ORDERABLES F inal Result [facility] [address] [place] [address] * (ABNORMAL) Magnesium (02/19/2025 3:11 AM CDT) Magnesium 2.9(H) 1.4 - 2.5 mg/dL Comment:Reviewed Blood 02/19/2025 3:11 AM CDT 02/19/2025 3:34 AM CDT Rehana Kimbrough Violetta OSULLIVAN LAB BLOOD ORDERABLES F inal Result Performing Organization Address City/[facility]/ZIP Co de Phone Number [facility] [address] [place] [address] * (ABNORMAL) Basic metabolic panel (02/19/2025 3:11 AM CDT) Sodium 149(H) 135 - 145 mmol/L Potassium, pl 3.6 3.3 - 4.9 mmol/L [facility] Chloride 109 97 - 110 mmol/L [facility] CO2 23 22 - 32 mmol/L [facility] Anion gap 17(H) 2 - 15 mmol/L [facility] BUN 25 6 - 25 mg/dL [facility] Creatinine 1.43(H) 0.80 - 1.30 mg/dL [facility] Glucose 151 70 - 199 mg/dL [facility] Comment: Interpretive Data Fasting glucose >/= 126 [...] 2022. Calcium 8.0(L) 8.5 - 10.3 mg/dL [facility] Blood 02/19/2025 3:11 AM CDT 02/19/2025 3:34 AM CDT Karin Rodriguez MD LAB BLOOD ORDERABLES Final R esult Performing Organization Address [facility]/ZIP Co de Phone Number [facility] [address] [place] [address] * (ABNORMAL) Urinalysis reflex to microscopic and culture Urine (02/18/2025 11:51 PM CDT) Color, ur Yellow Yellow Clarity, ur Clear Clear [facility] Specific gravity, ur 1.029 1.003 - 1.030 [facility] pH, urine 5.5 [facility] Comment: Interpretive Data U rine pH is affected by diet, medications, systemic acid-base disturbances, and renal tubular function. pH may affect urinary stone formation. For example, urine pH below 6.0 may help reduce the tendency for calcium phosphate stones and pH greater than 6.0 may reduce the tendency for uric acid stone formation. Source: [facility] Current Interpretive Data was last revised on 2017 Protein, ur ql Trace Negative [facility] Glucose, ur ql 2+(A) Negative [facility] Ketones, ur Negative Negative [facility] Bilirubin, ur Negative Negative [facility] Blood, ur Trace(A) Negative [facility] Urobilinogen, ur <2.0 <2.0 mg/dL [facility] Nitrite, ur Negative Negative [facility] Leukocyte esterase, ur Negative Negative [facility] UA reflex comment Reflex to microscopic UA will be performed. [facility] Urine 02/18/2025 11:5 1 PM CDT 02/19/2025 12:08 AM CDT Karin Rodriguez MD LAB MICROBIOLOGY - GENERAL O RDERABLES Final Result [facility] [address] [place] [address] * (ABNORMAL) Urinalysis, microscopic only (02/18/2025 11:51 PM CDT) WBC, ur 0-5 0 - 5 /HPF RBC, ur 0-2 0 - 2 /HPF [facility] Mucous, ur Present(A) [facility] Culture Reflex Comment Reflex conditions for urine culture (WBC >10) not met. [facility] Urine 02/18/2025 11:5 1 PM CDT 02/19/2025 12:08 AM CDT Karin Rodriguez MD LAB URINE ORDERABLES Final R esult Performing Organization Address [facility] Co de Phone Number [facility] [address] [facility] [employer] [place], [place] [id number] * POCT glucose (02/18/2025 11:43 PM CDT) Glucose, POC 135 70 - 199 mg/dL Comment: For Glucose values <35 mg/dl when Hematocrit is >60 mg/dl,the test may not accurately detect significant hypoglycemia,and testing in the Laboratory should be considered if clinically indicated. POC Performer [id number] [facility] Blood 02/18/2025 11:4 3 PM CDT 02/18/2025 11:43 PM CDT Rehana Shipley DO [facility] POCT ORDERABLES - DEVICE Final Result Performing Organization Address [facility] Co de Phone Number [facility] [address] [place] [address] * POCT glucose (02/18/2025 9:12 PM CDT) Glucose, POC 122 70 - 199 mg/dL Comment: For Glucose values <35 mg/dl when Hematocrit is >60 mg/dl,the test may not accurately detect significant hypoglycemia,and testing in the Laboratory should be considered if clinically indicated. POC Performer [id number] [facility] Blood 02/18/2025 9:12 PM CDT 02/18/2025 9:12 PM CDT Rehana [place]ley DO LAB POCT ORDERABLES - DEVICE Final Result Performing Organization Address [facility] Co de Phone Number [facility] [address] Department [employer] [place], [place] [id number] * (ABNORMAL) eGFR (02/18/2025 9:01 PM CDT) [...] LAB BLOOD ORDERABLES Final R esult [facility] [address] [place] [address] * (ABNORMAL) Pro B-type natriuretic [...] MD LAB BLOOD ORDERABLES Final R esult [facility] [address] [place] [address] * (ABNORMAL) CBC without differential (02/18/2025 9:01 PM CDT) WBC 17.15(H) 3.80 - 9.90 K/cumm Hgb 14.5 13.0 - 17.5 g/dL [facility] Hct 47.7 38.9 - 50.3 % [facility] Plt 246 150 - 400 K/cumm [facility] MPV 11.1 9.1 - 12.3 fL [facility] RBC 5.01 4.30 - 5.80 M/cumm [facility] MCV 95.2 81.3 - 96.4 fL [facility] MCH 28.9 27.1 - 33.3 pg [facility] MCHC 30.4(L) 32.3 - 35.7 g/dL [facility] RDW CV 15.7(H) 11.1 - 14.9 % [facility] RDW SD 54.9(H) 35.7 - 48.1 fL [facility] NRBC abs 0.00 0.00 - 0.01 K/cumm [facility] Blood 02/18/2025 9:01 PM CDT 02/18/2025 9:33 PM CDT Karin Rodriguez MD LAB BLOOD ORDERABLES Final R esult Performing Organization Address [facility]/ZIP Co de Phone Number [facility] [address] [place] [address] * (ABNORMAL) Triglycerides (02/18/2025 9:01 [...] ORDERABLES F inal Result Performing Organization Address [facility]/ZIP Co de Phone Number [facility] [address] [place] [address] * (ABNORMAL) Phosphorus (02/18/2025 9:01 PM CDT) Phosphorus, pl 5.0(H) 2.3 - 4.5 mg/dL Blood 02/18/2025 9:01 PM CDT 02/18/2025 9:32 PM CDT Karin Rodriguez MD LAB BLOOD ORDERABLES Final R esult Performing Organization Address [facility]/ZIP Co de Phone Number [facility] [address] [facility] [place] [address] * Magnesium (02/18/2025 9:01 PM CDT) [facility] Magnesium 2.2 1.4 - 2.5 mg/dL Blood 02/18/2025 9:01 PM CDT 02/18/2025 9:32 PM CDT Karin Rodriguez MD LAB BLOOD ORDERABLES Final R esult Performing Organization Address [facility] de Phone Number [facility] [address] [place] [address] * (ABNORMAL) Comprehensive metabolic panel (02/18/2025 9:01 PM CDT) Pathologist [facility] Sodium 149(H) 135 - 145 mmol/L Potassium, pl 3.7 3.3 - 4.9 mmol/L [facility] Chloride 110 97 - 110 mmol/L [facility] CO2 22 22 - 32 mmol/L [facility] Anion gap 17(H) 2 - 15 mmol/L [facility] BUN 23 6 - 25 mg/dL [facility] Creatinine 1.34(H) 0.80 - 1.30 mg/dL [facility] Glucose 107 70 - 199 mg/dL [facility] Comment: Interpretive Data Fasting glucose >/= 126 [...] 2022. Calcium 8.3(L) 8.5 - 10.3 mg/dL [facility] Bilirubin, total 0.3 0.1 - 1.2 mg/dL [facility] Protein, pl 6.5 6.5 - 8.5 g/dL [facility] Albumin 3.2(L) 3.5 - 5.0 g/dL [facility] Alk phos 116 40 - 130 Units/L [facility] ALT 24 7 - 55 Units/L [facility] AST 48 10 - 50 Units/L [facility] Blood 02/18/2025 9:01 PM CDT 02/18/2025 9:32 PM CDT Karin Rodriguez MD LAB BLOOD ORDERABLES Final R esult Performing Organization Address [facility] Co de Phone Number [facility] [address] [place] [address] * (ABNORMAL) Lactate (02/18/2025 9:00 PM CDT) Pathologist [facility] Lactate 2.1(H) 0.7 - 2.0 mmol/L Blood 02/18/2025 9:00 PM CDT 02/18/2025 9:05 PM CDT Karin Rodriguez MD LAB BLOOD ORDERABLES Final R esult Performing Organization Address City/[facility]/ZIP Co de Phone Number [facility] [address] [place] [address] * aPTT (02/18/2025 9:00 PM CDT) aPTT 31 28 - 38 sec Comment: Interpretive Data Heparin therapeutic range: 66.0 - 100.0 seconds. Range based on correlation with therapeutic heparin activity range of 0.3 - 0.7 Units/mL. Current interpretive data was last revised on 2023. Blood 02/18/2025 9:00 PM CDT 02/18/2025 9:32 PM CDT us Karin Rodriguez MD LAB BLOOD ORDERABLES Final R esult [facility] [address] Department [place] [address] * (ABNORMAL) Protime-INR (02/18/2025 9:00 PM CDT) PT 13.1(H) 9.7 - 13.0 sec INR 1.21(H) 0.90 - 1.20 [facility] Comment: Interpretive data Oral anticoagulant therapeutic ranges: Venous thromboembolism prophylaxis or treatment: 2.0-3.0 CARDIOLOGY Standard range: 2.0-3.0 High-intensity range: 2.5-3.5 Refer to indication-specific guidelines for appropriate target ranges for prosthetic heart valve replacement. Current interpretive data was last revised on 2019. Blood 02/18/2025 9:00 PM CDT 02/18/2025 9:32 PM CDT us Karin Rodriguez MD LAB BLOOD ORDERABLES Final R esult [facility] [address] Department [place] [address] * Blood gas, arterial (02/18/2025 8:34 PM CDT) pH, Art 7.42 7.35 - 7.45 PCO2, Arterial 36 35 - 45 mmHg [facility] PO2, Arterial 86 83 - 108 mmHg [facility] HCO3 Art (Calculated) 23 20 - 30 mmol/L [facility] BE, art -1 mmol/L [facility] Comment: Interpretive Data No Reference Range Established Current Interpretive Data was last revised on 2017 O2 Sat Art (Calculated) 97 94 - 98 % [facility] Blood 02/18/2025 8:34 PM CDT 02/18/2025 8:39 PM CDT us Karin Rodriguez MD LAB BLOOD ORDERABLES Final R esult [facility] [address] [place] [address] * X-ray chest 1 view (02/18/2025 8:15 [...] PM CDT Narrative 02/27/2025 12:47 PM CDT [facility] [address] [place] [address] Event MONITOR Patient Name: MAURICIO [place] C [...] arrhythmias. Electronically Signed By: Jb Henning MD [facility] 02/27/2025 12:46:23 PM CDT Procedure Note Jb Henning MD - 02/27/2025 [facility] [address] [place] [address] Event MONITOR Patient Name: MAURICIO [place]LEY C [...] arrhythmias. Electronically Signed By: Jb Henning MD [facility] 02/27/2025 12:46:23 PM CDT Bella MCGUIRE CV CARDIAC SERVICES PROCEDUR ES Final Result * POCT glucose (01/25/2025 7:47 AM CDT) Glucose, POC 116 70 - 199 mg/dL Comment: For Glucose values <35 mg/dl when Hematocrit is >60 mg/dl,the test may not accurately detect significant hypoglycemia,and testing in the Laboratory should be considered if clinically indicated. POC Performer [phone] [facility] Blood 01/25/2025 7:47 AM CDT 01/25/2025 7:47 AM CDT Brayden Hopkins MD LAB POCT ORDERABLES - KATE CE Final Result [facility] [address] [place] [address] * eGFR (01/25/2025 1:44 AM CDT) eGFR [...] 01/25/2025 2:35 AM CDT Desire Regina Tonsor [employer] LAB BLOOD ORDERABLES Fin al Result Performing Organization Address [facility] de Phone Number [facility] [address] [place] [address] * (ABNORMAL) CBC without differential (01/25/2025 1:44 AM CDT) Pathologist [facility] WBC 13.28(H) 3.80 - 9.90 K/cumm Hgb 10.1(L) 13.0 - 17.5 g/dL [facility] Hct 31.9(L) 38.9 - 50.3 % [facility] Plt 318 150 - 400 K/cumm [facility] MPV 12.0 9.1 - 12.3 fL [facility] RBC 3.44(L) 4.30 - 5.80 M/cumm [facility] MCV 92.7 81.3 - 96.4 fL [facility] MCH 29.4 27.1 - 33.3 pg [facility] MCHC 31.7(L) 32.3 - 35.7 g/dL [facility] RDW CV 17.4(H) 11.1 - 14.9 % [facility] RDW SD 57.3(H) 35.7 - 48.1 fL [facility] NRBC abs 0.00 0.00 - 0.01 K/cumm [facility] Blood 01/25/2025 1:44 AM CDT 01/25/2025 2:35 AM CDT Desire Harrellor [employer] LAB BLOOD ORDERABLES Fin al Result Performing Organization Address [facility] Co de Phone Number [facility] [address] [place] [address] * Phosphorus (01/25/2025 1:44 AM CDT) Pathologist [facility] Phosphorus, pl 4.2 2.3 - 4.5 mg/dL Blood 01/25/2025 1:44 AM CDT 01/25/2025 2:35 AM CDT Desire Ghotra [employer] LAB BLOOD ORDERABLES Dean francy Result - Final [facility] [address] [employer] [place] [address] * (ABNORMAL) Basic metabolic panel (01/25/2025 1:44 AM CDT) Pathologist [facility] Sodium 142 135 - 145 mmol/L Potassium, pl 3.7 3.3 - 4.9 mmol/L [facility] Chloride 106 97 - 110 mmol/L [facility] CO2 24 22 - 32 mmol/L [facility] Anion gap 12 2 - 15 mmol/L [facility] BUN 16 6 - 25 mg/dL [facility] Creatinine 0.95 0.80 - 1.30 mg/dL [facility] Glucose 123 70 - 199 mg/dL [facility] Comment: Interpretive Data Fasting glucose >/= 126 [...] 2022. Calcium 7.9(L) 8.5 - 10.3 mg/dL [facility] Blood 01/25/2025 1:44 AM CDT 01/25/2025 2:35 AM CDT Desire Ghotra [employer] LAB BLOOD ORDERABLES Dean francy Result - Final [facility] [address] [place] [address] * POCT glucose (01/24/2025 8:21 PM CDT) Glucose, POC 143 70 - 199 mg/dL Comment: For Glucose values <35 mg/dl when Hematocrit is >60 mg/dl,the test may not accurately detect significant hypoglycemia,and testing in the Laboratory should be considered if clinically indicated. POC Performer [id number] [facility] Blood 01/24/2025 8:21 PM CDT 01/24/2025 8:21 PM CDT Brayden Hopkins MD LAB POCT ORDERABLES - KATE CE Final Result Performing Organization Address [facility] de Phone Number [facility] [address] [facility] [place] [employer] [place] [address] * POCT glucose (01/24/2025 4:53 PM CDT) Glucose, POC 101 70 - 199 mg/dL Comment: For Glucose values <35 mg/dl when Hematocrit is >60 mg/dl,the test may not accurately detect significant hypoglycemia,and testing in the Laboratory should be considered if clinically indicated. POC Performer [id number] [facility] Blood 01/24/2025 4:53 PM CDT 01/24/2025 4:53 PM CDT Brayden Hopkins MD LAB POCT ORDERABLES - KATE CE Final Result Performing Organization Address [facility] de Phone Number [facility] [address] [place] [address] * (ABNORMAL) POCT glucose (01/24/2025 11:54 AM CDT) Glucose, POC 207(H) 70 - 199 mg/dL Comment: For Glucose values <35 mg/dl when Hematocrit is >60 mg/dl,the test may not accurately detect significant hypoglycemia,and testing in the Laboratory should be considered if clinically indicated. POC Performer [id number] [facility] Blood 01/24/2025 11:5 4 AM CDT 01/24/2025 11:54 AM CDT Brayden Hopkins MD LAB POCT ORDERABLES - KATE CE Final Result Performing Organization Address [facility] Co de Phone Number [facility] [address] [facility] [place] [address] * POCT glucose (01/24/2025 8:44 AM CDT) Glucose, POC 156 70 - 199 mg/dL Comment: For Glucose values <35 mg/dl when Hematocrit is >60 mg/dl,the test may not accurately detect significant hypoglycemia,and testing in the Laboratory should be considered if clinically indicated. POC Performer [phone] [facility] Blood 01/24/2025 8:44 AM CDT 01/24/2025 8:44 AM CDT Brayden Hopkins MD LAB POCT ORDERABLES - KATE CE Final Result Performing Organization Address [facility] de Phone Number [facility] [address] [place] [address] * eGFR (01/24/2025 1:37 AM CDT) Pathologist [facility] eGFR >90 >=60 mL/min/1. 73 [...] 01/24/2025 2:34 AM CDT Desire Tapia Tonsor [employer] LAB BLOOD ORDERABLES Fin al Result Performing Organization Address [facility] Co de Phone Number [facility] [address] Department [employer] [place], [place] [id number] * (ABNORMAL) CBC without differential (01/24/2025 1:37 AM CDT) Pathologist [facility] WBC 13.10(H) 3.80 - 9.90 K/cumm Hgb 9.5(L) 13.0 - 17.5 g/dL [facility] Hct 30.2(L) 38.9 - 50.3 % [facility] Plt 311 150 - 400 K/cumm [facility] MPV 11.7 9.1 - 12.3 fL [facility] RBC 3.22(L) 4.30 - 5.80 M/cumm [facility] MCV 93.8 81.3 - 96.4 fL [facility] MCH 29.5 27.1 - 33.3 pg [facility] MCHC 31.5(L) 32.3 - 35.7 g/dL [facility] RDW CV 17.3(H) 11.1 - 14.9 % [facility] RDW SD 56.5(H) 35.7 - 48.1 fL [facility] NRBC abs 0.00 0.00 - 0.01 K/cumm [facility] Blood 01/24/2025 1:37 AM CDT 01/24/2025 2:35 AM CDT Desire Harrellor [employer] LAB BLOOD ORDERABLES Fin al Result Performing Organization Address [facility]/ZIP Co de Phone Number [facility] [address] [place] [address] * Phosphorus (01/24/2025 1:37 AM CDT) Pathologist [facility] Phosphorus, pl 3.4 2.3 - 4.5 mg/dL Blood 01/24/2025 1:37 AM CDT 01/24/2025 2:34 AM CDT Desire Harrellor [employer] LAB BLOOD ORDERABLES Fin al Result Performing Organization Address [facility] Co de Phone Number [facility] [address] [place] [address] * (ABNORMAL) Basic metabolic panel (01/24/2025 1:37 AM CDT) [facility] Sodium 139 135 - 145 mmol/L Potassium, pl 3.8 3.3 - 4.9 mmol/L [facility] Chloride 104 97 - 110 mmol/L [facility] CO2 23 22 - 32 mmol/L [facility] Anion gap 12 2 - 15 mmol/L [facility] BUN 15 6 - 25 mg/dL [facility] Creatinine 0.80 0.80 - 1.30 mg/dL [facility] Glucose 218(H) 70 - 199 mg/dL [facility] Comment: Interpretive Data Fasting glucose >/= 126 [...] 2022. Calcium 7.7(L) 8.5 - 10.3 mg/dL [facility] Blood 01/24/2025 1:37 AM CDT 01/24/2025 2:34 AM CDT Desire Harrellfl [employer] LAB BLOOD ORDERABLES Fin al Result Performing Organization Address [facility] Co de Phone Number [facility] [address] [facility] [place] [address] * (ABNORMAL) POCT glucose (01/23/2025 8:13 PM CDT) Glucose, POC 261(H) 70 - 199 mg/dL Comment: For Glucose values <35 mg/dl when Hematocrit is >60 mg/dl,the test may not accurately detect significant hypoglycemia,and testing in the Laboratory should be considered if clinically indicated. POC Performer [id number] [facility] Blood 01/23/2025 8:13 PM CDT 01/23/2025 8:13 PM CDT Brayden Hopkins MD LAB POCT ORDERABLES - KATE CE Final Result Performing Organization Address [facility] Co de Phone Number [facility] [address] [place] [address] * POCT glucose (01/23/2025 5:33 PM CDT) Glucose, POC 144 70 - 199 mg/dL Comment: For Glucose values <35 mg/dl when Hematocrit is >60 mg/dl,the test may not accurately detect significant hypoglycemia,and testing in the Laboratory should be considered if clinically indicated. POC Performer [id number] [facility] Blood 01/23/2025 5:33 PM CDT 01/23/2025 5:33 PM CDT Brayden Hopkins MD LAB POCT ORDERABLES - KATE CE Final Result Performing Organization Address [facility]/ZIP Co de Phone Number [facility] [address] [facility] [place] [address] * (ABNORMAL) POCT glucose (01/23/2025 12:25 PM CDT) Glucose, POC 235(H) 70 - 199 mg/dL Comment: For Glucose values <35 mg/dl when Hematocrit is >60 mg/dl,the test may not accurately detect significant hypoglycemia,and testing in the Laboratory should be considered if clinically indicated. POC Performer [id number] [facility] Blood 01/23/2025 12:2 5 PM CDT 01/23/2025 12:25 PM CDT Brayden Hopkins MD LAB POCT ORDERABLES - KATE CE Final Result Performing Organization Address City/[facility]/ZIP Co de Phone Number [facility] [address] [place] [address] * NT-Pro BNP - Add on lab test (01/23/2025 10:29 AM CDT) Pathologist [facility] Acceptable Yes Blood 01/23/2025 10:2 9 AM CDT 01/23/2025 10:29 AM CDT Narrative [facility] - 01/23/2025 10:29 AM CDT Name of Test->NT-Pro BNP Balbina Mac NP LAB BLOOD ORDERABLES Fi nal Result Performing Organization Address [facility] Co de Phone Number [facility] [address] [place] [address] * POCT glucose (01/23/2025 7:52 AM CDT) Pathologist [facility] Glucose, POC 164 70 - 199 mg/dL Comment: For Glucose values <35 mg/dl when Hematocrit is >60 mg/dl,the test may not accurately detect significant hypoglycemia,and testing in the Laboratory should be considered if clinically indicated. POC Performer [id number] [facility] Blood 01/23/2025 7:52 AM CDT 01/23/2025 7:52 AM CDT Brayden Hopkins MD LAB POCT ORDERABLES - KATE CE Final Result Performing Organization Address City/[facility]/ZIP Co de Phone Number [facility] [address] [place] [address] * eGFR (01/23/2025 12:46 AM CDT) eGFR [...] LAB BLOOD ORDERABLES Fin al Result [facility] [address] Department of Laboratories [place], [place] [phone] * (ABNORMAL) Pro B-type natriuretic peptide (01/23/2025 [...] Hopkins MD LAB BLOOD ORDERABLES Final Result [facility] [address] [place] [address] * (ABNORMAL) CBC without differential (01/23/2025 12:46 AM CDT) WBC 14.01(H) 3.80 - 9.90 K/cumm Hgb 9.7(L) 13.0 - 17.5 g/dL [facility] Hct 30.6(L) 38.9 - 50.3 % [facility] Plt 299 150 - 400 K/cumm [facility] MPV 10.8 9.1 - 12.3 fL [facility] RBC 3.33(L) 4.30 - 5.80 M/cumm [facility] MCV 91.9 81.3 - 96.4 fL [facility] MCH 29.1 27.1 - 33.3 pg [facility] MCHC 31.7(L) 32.3 - 35.7 g/dL [facility] RDW CV 17.6(H) 11.1 - 14.9 % [facility] RDW SD 53.6(H) 35.7 - 48.1 fL [facility] NRBC abs 0.00 0.00 - 0.01 K/cumm [facility] Blood 01/23/2025 12:4 6 AM CDT 01/23/2025 12:58 AM CDT Desire Tapia Tonsor [employer] LAB BLOOD ORDERABLES Fin al Result Performing Organization Address City/[facility]/ZIP Co de Phone Number [facility] [address] Department [employer] [place], [place] [phone] * Phosphorus (01/23/2025 12:46 AM CDT) [facility] Phosphorus, pl 2.9 2.3 - 4.5 mg/dL Blood 01/23/2025 12:4 6 AM CDT 01/23/2025 12:58 AM CDT [facility] [employer] LAB BLOOD ORDERABLES Fin al Result Performing Organization Address [facility] Co de Phone Number [facility] [address] [place] [address] * (ABNORMAL) Basic metabolic panel (01/23/2025 12:46 AM CDT) [facility] Sodium 139 135 - 145 mmol/L Potassium, pl 3.7 3.3 - 4.9 mmol/L [facility] Chloride 105 97 - 110 mmol/L [facility] CO2 23 22 - 32 mmol/L [facility] Anion gap 11 2 - 15 mmol/L [facility] BUN 14 6 - 25 mg/dL [facility] Creatinine 0.79(L) 0.80 - 1.30 mg/dL [facility] Glucose 178 70 - 199 mg/dL [facility] Comment: Interpretive Data Fasting glucose >/= 126 [...] 2022. Calcium 7.4(L) 8.5 - 10.3 mg/dL [facility] Blood 01/23/2025 12:4 6 AM CDT 01/23/2025 12:58 AM CDT Desire Ghotra NP LAB BLOOD ORDERABLES Fin al Result Performing Organization Address [facility]/ZIP Co de Phone Number [facility] [address] Department [place], [place] [phone] * POCT glucose (01/22/2025 8:42 PM CDT) Glucose, POC 188 70 - 199 mg/dL Comment: For Glucose values <35 mg/dl when Hematocrit is >60 mg/dl,the test may not accurately detect significant hypoglycemia,and testing in the Laboratory should be considered if clinically indicated. POC Performer [id number] [facility] Blood 01/22/2025 8:42 PM CDT 01/22/2025 8:42 PM CDT Brayden Hopkins MD LAB POCT ORDERABLES - KATE CE Final Result Performing Organization Address [facility]/ZIP Co de Phone Number [facility] [address] [place] [address] * POCT glucose (01/22/2025 5:30 PM CDT) Glucose, POC 138 70 - 199 mg/dL Comment: For Glucose values <35 mg/dl when Hematocrit is >60 mg/dl,the test may not accurately detect significant hypoglycemia,and testing in the Laboratory should be considered if clinically indicated. POC Performer [id number] [facility] Blood 01/22/2025 5:30 PM CDT 01/22/2025 5:30 PM CDT Brayden Hopkins MD LAB POCT ORDERABLES - KATE CE Final Result Performing Organization Address [facility] Co de Phone Number [facility] [address] [facility] [place] [address] * POCT glucose (01/22/2025 12:20 PM CDT) Glucose, POC 153 70 - 199 mg/dL Comment: For Glucose values <35 mg/dl when Hematocrit is >60 mg/dl,the test may not accurately detect significant hypoglycemia,and testing in the Laboratory should be considered if clinically indicated. POC Performer [id number] [facility] Blood 01/22/2025 12:2 0 PM CDT 01/22/2025 12:20 PM CDT Brayden Hopkins MD LAB POCT ORDERABLES - KATE CE Final Result Performing Organization Address [facility] de Phone Number [facility] [address] [facility] [place] [address] * POCT glucose (01/22/2025 8:15 AM CDT) Glucose, POC 184 70 - 199 mg/dL Comment: For Glucose values <35 mg/dl when Hematocrit is >60 mg/dl,the test may not accurately detect significant hypoglycemia,and testing in the Laboratory should be considered if clinically indicated. POC Performer [id number] [facility] Blood 01/22/2025 8:15 AM CDT 01/22/2025 8:15 AM CDT Brayden Hopkins MD LAB POCT ORDERABLES - KATE CE Final Result Performing Organization Address [facility] Co de Phone Number [facility] [address] [place] [address] * eGFR (01/22/2025 12:34 AM CDT) Pathologist [facility] eGFR >90 >=60 mL/min/1. 73 [...] NP LAB BLOOD ORDERABLES Fin al Result [facility] [address] [place] [address] * (ABNORMAL) CBC without differential (01/22/2025 12:34 AM CDT) [facility] WBC 15.34(H) 3.80 - 9.90 K/cumm Hgb 9.3(L) 13.0 - 17.5 g/dL [facility] Hct 29.4(L) 38.9 - 50.3 % [facility] Plt 295 150 - 400 K/cumm [facility] MPV 11.3 9.1 - 12.3 fL [facility] RBC 3.22(L) 4.30 - 5.80 M/cumm [facility] MCV 91.3 81.3 - 96.4 fL [facility] MCH 28.9 27.1 - 33.3 pg [facility] MCHC 31.6(L) 32.3 - 35.7 g/dL [facility] RDW CV 17.2(H) 11.1 - 14.9 % [facility] RDW SD 53.2(H) 35.7 - 48.1 fL [facility] NRBC abs 0.06(H) 0.00 - 0.01 K/cumm [facility] Blood 01/22/2025 12:3 4 AM CDT 01/22/2025 12:48 AM CDT Desire Tapia Tonsor [employer] LAB BLOOD ORDERABLES Fin al Result Performing Organization Address [facility] Co de Phone Number [facility] [address] [facility] [place] [address] * Phosphorus (01/22/2025 12:34 AM CDT) Phosphorus, pl 2.9 2.3 - 4.5 mg/dL Blood 01/22/2025 12:3 4 AM CDT 01/22/2025 12:47 AM CDT us Desire Harrellor [employer] LAB BLOOD ORDERABLES Fin al Result Performing Organization Address City/[facility] Co de Phone Number [facility] [address] [place] [address] * Magnesium (01/22/2025 12:34 AM CDT) Magnesium 1.9 1.4 - 2.5 mg/dL Blood 01/22/2025 12:3 4 AM CDT 01/22/2025 12:47 AM CDT Desire Tapia Tonsor [employer] LAB BLOOD ORDERABLES Fin al Result Performing Organization Address [facility] Co de Phone Number [facility] [address] [place] [address] * (ABNORMAL) Basic metabolic panel (01/22/2025 12:34 AM CDT) [facility] Sodium 138 135 - 145 mmol/L Potassium, pl 4.1 3.3 - 4.9 mmol/L [facility] Chloride 105 97 - 110 mmol/L [facility] CO2 22 22 - 32 mmol/L [facility] Anion gap 11 2 - 15 mmol/L [facility] BUN 16 6 - 25 mg/dL [facility] Creatinine 0.73(L) 0.80 - 1.30 mg/dL [facility] Glucose 188 70 - 199 mg/dL [facility] Comment: Interpretive Data Fasting glucose >/= 126 [...] 2022. Calcium 7.5(L) 8.5 - 10.3 mg/dL [facility] Blood 01/22/2025 12:3 4 AM CDT 01/22/2025 12:47 AM CDT Desire Ghotra NP LAB BLOOD ORDERABLES Fin al Result [facility] [address] [place] [address] * POCT glucose (01/21/2025 8:45 PM CDT) [facility] Glucose, POC 177 70 - 199 mg/dL Comment: For Glucose values <35 mg/dl when Hematocrit is >60 mg/dl,the test may not accurately detect significant hypoglycemia,and testing in the Laboratory should be considered if clinically indicated. POC Performer [id number] [facility] Blood 01/21/2025 8:45 PM CDT 01/21/2025 8:45 PM CDT Brayden Hopkins MD LAB POCT ORDERABLES - KATE CE Final Result Performing Organization Address [facility] Co de Phone Number [facility] [address] [facility] [employer] [place], [place] [phone] * POCT glucose (01/21/2025 5:50 PM CDT) [facility] Glucose, POC 195 70 - 199 mg/dL Comment: For Glucose values <35 mg/dl when Hematocrit is >60 mg/dl,the test may not accurately detect significant hypoglycemia,and testing in the Laboratory should be considered if clinically indicated. POC Performer [id number] [facility] Blood 01/21/2025 5:50 PM CDT 01/21/2025 5:50 PM CDT Brayden Hopkins MD LAB POCT ORDERABLES - KATE CE Final Result Performing Organization Address [facility] de Phone Number [facility] [address] [facility] [place] [address] * ECG 12 lead (01/21/2025 1:08 PM CDT) 01/21/2025 1:08 PM CDT Narrative [facility] - 01/22/2025 8:50 AM CDT Vent Rate: 108 bpm RR Interval: 552 msec LA Interval: 158 msec QRS Duration: 157 msec QT Interval: 386 msec QTC Interval: 450 msec P-R-T [place]: -14 - 56 - 193 degrees IMPRESSION: ELECTRONIC VENTRICULAR PACEMAKER ABNORMAL RHYTHM ECG Electronically Signed By: Hernan Coley MD [facility] Brayden Hopkins MD ECG ORDERABLES Final Resu lt Performing Organization Address [facility] Co de Phone Number [facility] * POCT glucose (01/21/2025 12:27 PM CDT) Glucose, POC 133 70 - 199 mg/dL Comment: For Glucose values <35 mg/dl when Hematocrit is >60 mg/dl,the test may not accurately detect significant hypoglycemia,and testing in the Laboratory should be considered if clinically indicated. POC Performer [id number] [facility] Blood 01/21/2025 12:2 7 PM CDT 01/21/2025 12:27 PM CDT Brayden Hopkins MD LAB POCT ORDERABLES - KATE CE Final Result [facility] [address] [place] [address] * Critical Care (01/21/2025 6:52 AM CDT) Narrative Malcolm Valverde MD - 01/21/2025 6:52 AM CDT Malcolm Valverde MD 01/21/2025 4:58 PM Critical Care Performed by: Desire Ghotra NP Authorized by: Desire Ghotra NP CRITICAL CARE: Team: [facility] CT Shift: AM Level of [...] plan with the patient's team and other medical/salesforce consultant staff. This time was in addition to and separate from care provided by other practitioners on this day of service. Desire Ghotra [employer] IN CLINIC/BEDSIDE ORDERA BLES Final Result * [...] by: Sandeep Mar M.D. us Kaelyn Gale [employer] IMG XR PROCEDURES Final Re sult * [...] ORDERABLES Final Resu lt Performing Organization Address City/[facility]/ZIP Co de Phone Number [facility] [address] [place] [address] * (ABNORMAL) CBC without differential (01/21/2025 12:06 AM CDT) WBC 17.16(H) 3.80 - 9.90 K/cumm Hgb 9.4(L) 13.0 - 17.5 g/dL [facility] Hct 29.3(L) 38.9 - 50.3 % [facility] Plt 274 150 - 400 K/cumm [facility] MPV 11.2 9.1 - 12.3 fL [facility] RBC 3.28(L) 4.30 - 5.80 M/cumm [facility] MCV 89.3 81.3 - 96.4 fL [facility] MCH 28.7 27.1 - 33.3 pg [facility] MCHC 32.1(L) 32.3 - 35.7 g/dL [facility] RDW CV 16.9(H) 11.1 - 14.9 % [facility] RDW SD 53.1(H) 35.7 - 48.1 fL [facility] NRBC abs 0.04(H) 0.00 - 0.01 K/cumm [facility] Blood 01/21/2025 12:0 6 AM CDT 01/21/2025 12:14 AM CDT Kaelyn Gale NP LAB BLOOD ORDERABLES Final Result [facility] [address] Department [place], [place] [phone] * Phosphorus (01/21/2025 12:06 AM CDT) Phosphorus, pl 2.6 2.3 - 4.5 mg/dL Blood 01/21/2025 12:0 6 AM CDT 01/21/2025 12:14 AM CDT Desirealex Tapia Tonsor [employer] LAB BLOOD ORDERABLES Fin al Result [facility] [address] [place] [address] * Magnesium (01/21/2025 12:06 AM CDT) [facility] Magnesium 2.0 1.4 - 2.5 mg/dL Blood 01/21/2025 12:0 6 AM CDT 01/21/2025 12:14 AM CDT Desire Harrellor [employer] LAB BLOOD ORDERABLES Fin al Result Performing Organization Address [facility] Co de Phone Number [facility] [address] [facility] [place] [address] * (ABNORMAL) Basic metabolic panel (01/21/2025 12:06 AM CDT) [facility] Sodium 140 135 - 145 mmol/L Potassium, pl 4.2 3.3 - 4.9 mmol/L [facility] Chloride 106 97 - 110 mmol/L [facility] CO2 21(L) 22 - 32 mmol/L [facility] Anion gap 13 2 - 15 mmol/L [facility] BUN 23 6 - 25 mg/dL [facility] Creatinine 0.87 0.80 - 1.30 mg/dL [facility] Glucose 280(H) 70 - 199 mg/dL [facility] Comment: Interpretive Data Fasting glucose >/= 126 [...] 2022. Calcium 7.5(L) 8.5 - 10.3 mg/dL [facility] Blood 01/21/2025 12:0 6 AM CDT 01/21/2025 12:14 AM CDT Desire Tapia Julio Cesarcatherine [employer] LAB BLOOD ORDERABLES Fin al Result [facility] [address] [place] [address] * Critical Care (01/20/2025 10:26 PM CDT) Narrative Malcolm Valverde MD - 01/20/2025 10:26 PM CDT Malcolm Valverde MD 01/21/2025 8:55 AM Critical Care Performed by: Marco A Espinoza DNP Authorized by: Marco A Espinoza DNP CRITICAL CARE: Team: [facility] CT Shift: PM Level of [...] plan with the ICU team and other medical/salesforce consultant staff, making frequent assessments and decisions [...] (ABNORMAL) POCT glucose (01/20/2025 8:23 PM CDT) [facility] Glucose, POC 203(H) 70 - 199 mg/dL Comment: For Glucose values <35 mg/dl when Hematocrit is >60 mg/dl,the test may not accurately detect significant hypoglycemia,and testing in the Laboratory should be considered if clinically indicated. POC Performer [id number] [facility] Blood 01/20/2025 8:23 PM CDT 01/20/2025 8:23 PM CDT Brayden Hopkins MD LAB POCT ORDERABLES - KATE CE Final Result Performing Organization Address City/[facility]/ZIP Co de Phone Number [facility] [address] Department of [employer] [place], [place] [phone] * POCT glucose (01/20/2025 5:30 PM CDT) Glucose, POC 122 70 - 199 mg/dL Comment: For Glucose values <35 mg/dl when Hematocrit is >60 mg/dl,the test may not accurately detect significant hypoglycemia,and testing in the Laboratory should be considered if clinically indicated. POC Performer [id number] [facility] Blood 01/20/2025 5:30 PM CDT 01/20/2025 5:30 PM CDT us Brayden Hopkins MD LAB POCT ORDERABLES - KATE CE Final Result Performing Organization Address [facility]/ZIP Co de Phone Number [facility] [address] Department [employer] [place], [place] [phone] * Lactate (01/20/2025 5:10 PM CDT) Lactate 1.5 0.7 - 2.0 mmol/L Blood 01/20/2025 5:10 PM CDT 01/20/2025 5:36 PM CDT Kaelyn Gale NP LAB BLOOD ORDERABLES Final Result Performing Organization Address City/[facility]/ZIP Co de Phone Number [facility] [address] Department of [employer] [place], [place] [phone] * (ABNORMAL) Differential, auto (01/20/2025 5:10 PM CDT) Neutrophil abs 15.49(H) 1.50 - 6.50 K/cumm Imm gran abs 1.01(H) 0.00 - 0.10 K/cumm [facility] Lymphocyte abs 3.83(H) 0.80 - 3.30 K/cumm [facility] Monocyte abs 1.74(H) 0.20 - 0.80 K/cumm [facility] Eosinophil abs 0.13 0.00 - 0.50 K/cumm [facility] Basophil abs 0.14(H) 0.00 - 0.10 K/cumm [facility] Neutrophil pct 69.4 % [facility] Comment: Interpretive Data Percent cell count reference ranges are not reported, since discordance with absolute values may lead to misinterpretation of CBC data. Current Interpretive Data was last revised on 2018. Imm gran pct 4.5 % [facility] Comment: Interpretive Data Percent cell count reference ranges are not reported, since discordance with absolute values may lead to misinterpretation of CBC data. Current Interpretive Data was last revised on 2018. Lymphocyte pct 17.1 % [facility] Comment: Interpretive Data Percent cell count reference ranges are not reported, since discordance with absolute values may lead to misinterpretation of CBC data. Current Interpretive Data was last revised on 2018. Monocyte pct 7.8 % [facility] Comment: Interpretive Data Percent cell count reference ranges are not reported, since discordance with absolute values may lead to misinterpretation of CBC data. Current Interpretive Data was last revised on 2018. Eosinophil pct 0.6 % [facility] Comment: Interpretive Data Percent cell count reference ranges are not reported, since discordance with absolute values may lead to misinterpretation of CBC data. Current Interpretive Data was last revised on 2018. Basophil pct 0.6 % [facility] Comment: Interpretive Data Percent cell count reference ranges are not reported, since discordance with absolute values may lead to misinterpretation of CBC data. Current Interpretive Data was last revised on 2018. Blood 01/20/2025 5:10 PM CDT 01/20/2025 5:49 PM CDT Kaelyn Gale NP LAB BLOOD ORDERABLES Final Result Performing Organization Address City/[facility] Co de Phone Number [facility] [address] [place] [address] * (ABNORMAL) CBC with auto differential (01/20/2025 5:10 PM CDT) [facility] WBC 22.34(H) 3.80 - 9.90 K/cumm Hgb 10.3(L) 13.0 - 17.5 g/dL [facility] Hct 31.4(L) 38.9 - 50.3 % [facility] Plt 326 150 - 400 K/cumm [facility] MPV 10.9 9.1 - 12.3 fL [facility] RBC 3.54(L) 4.30 - 5.80 M/cumm [facility] MCV 88.7 81.3 - 96.4 fL [facility] MCH 29.1 27.1 - 33.3 pg [facility] MCHC 32.8 32.3 - 35.7 g/dL [facility] RDW CV 16.8(H) 11.1 - 14.9 % [facility] RDW SD 52.4(H) 35.7 - 48.1 fL [facility] NRBC abs 0.03(H) 0.00 - 0.01 K/cumm [facility] Blood 01/20/2025 5:10 PM CDT 01/20/2025 5:49 PM CDT Kaelyn Gale NP LAB BLOOD ORDERABLES Final Result Performing Organization Address [facility] Co de Phone Number [facility] [address] [place] [address] * Transfuse RBC (01/20/2025 3:02 PM CDT) Blood Kaelyn Gale NP BLOOD TRANSFUSION ORDERABL ES Final Result Performing Organization Address [facility]/ZIP Co de Phone Number [facility] [address] [place] [address] * TRANSTHORACIC ECHO (TTE) LIMITED/FOLLOW UP WO DOPPLER/CF WO CONTRAST (01/20/2025 2:17 PM CDT) LV EF 20-25 % CONS SCIMAGE Anatomical Region Laterality Modality Ultrasound 01/20/2025 12:5 4 PM CDT Narrative 01/20/2025 6:06 PM CDT [facility] [address] [place] [address] LIMITED ECHOCARDIOGRAM Patient Name: MAURICIO HEADLEY C : 1955 (69y 11m) Gender: M Study Date: 01/20/2025 12:54:10 PM Ht(Inch): 68 Wt(Lb): 161 BSA: 1.87 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: Location: [address] Order Provider: KAELYN GALE BMI: 24.48 [...] Procedure Note Jasen Mclaughlin MD - 01/20/2025 [facility] [address] [place] [address] LIMITED ECHOCARDIOGRAM Patient Name: MAURICIO HEADLEY C : 1955 (69y 11m) Gender: M Study Date: 01/20/2025 12:54:10 PM Ht(Inch): 68 Wt(Lb): 161 BSA: 1.87 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: Location: [address] Order Provider: KAELYN GALE BMI: 24.48 [...] esult * Potassium (01/20/2025 2:14 PM CDT) [facility] Potassium, pl 4.2 3.3 - 4.9 mmol/L Blood 01/20/2025 2:14 PM CDT 01/20/2025 2:45 PM CDT Kaelyn Gale NP LAB BLOOD ORDERABLES Final Result Performing Organization Address [facility] Co de Phone Number [facility] [address] [place] [address] * Prepare RBC: 1 Units (01/20/2025 12:10 PM CDT) [facility] Product code [id number] Unit Number [id number] [facility] Product Blood Type BNEG [facility] Dispense Status PRESUMED TRANSFUSED [facility] Blood 01/20/2025 12:1 0 PM CDT Narrative [facility] - 01/21/2025 11:34 AM CDT Other indication->GIB/ hypovolemia Are special requirements needed? (All products are leukoreduced and CMV- safe)- >No Date required:-[id number] LRRBC # of [id number] Reasons:-Other (specify)} Kaelyn Gale NP BLOOD BANK PRODUCT ORDERAB LES Final Result Performing Organization Address [facility] Co de Phone Number [facility] [address] [place] [address] * (ABNORMAL) Lactate (01/20/2025 11:25 AM CDT) Pathologist [facility] Lactate 3.6(H) 0.7 - 2.0 mmol/L Blood 01/20/2025 11:2 5 AM CDT 01/20/2025 11:32 AM CDT Kaelyn Gale NP LAB BLOOD ORDERABLES Final Result Performing Organization Address [facility]/ZIP Co de Phone Number [facility] [address] [place] [address] * (ABNORMAL) CBC without differential (01/20/2025 11:25 AM CDT) [facility] WBC 21.74(H) 3.80 - 9.90 K/cumm Hgb 9.1(L) 13.0 - 17.5 g/dL [facility] Hct 29.2(L) 38.9 - 50.3 % [facility] Plt 317 150 - 400 K/cumm [facility] MPV 11.1 9.1 - 12.3 fL [facility] RBC 3.20(L) 4.30 - 5.80 M/cumm [facility] MCV 91.3 81.3 - 96.4 fL [facility] MCH 28.4 27.1 - 33.3 pg [facility] MCHC 31.2(L) 32.3 - 35.7 g/dL [facility] RDW CV 17.4(H) 11.1 - 14.9 % [facility] RDW SD 56.9(H) 35.7 - 48.1 fL [facility] NRBC abs 0.02(H) 0.00 - 0.01 K/cumm [facility] Blood 01/20/2025 11:2 5 AM CDT 01/20/2025 11:33 AM CDT Kaelyn Gale [employer] LAB BLOOD ORDERABLES Final Result Performing Organization Address [facility]/ZIP Co de Phone Number [facility] [address] [facility] [place] [address] * (ABNORMAL) POCT glucose (01/20/2025 11:20 AM CDT) Glucose, POC 227(H) 70 - 199 mg/dL Comment: For Glucose values <35 mg/dl when Hematocrit is >60 mg/dl,the test may not accurately detect significant hypoglycemia,and testing in the Laboratory should be considered if clinically indicated. POC Performer [phone] [facility] Blood 01/20/2025 11:2 0 AM CDT 01/20/2025 11:20 AM CDT Brayden Hopkins MD LAB POCT ORDERABLES - KATE CE Final Result Performing Organization Address [facility] Co de Phone Number [facility] [address] [facility] [place] [address] * POCT glucose (01/20/2025 7:48 AM CDT) Glucose, POC 167 70 - 199 mg/dL Comment: For Glucose values <35 mg/dl when Hematocrit is >60 mg/dl,the test may not accurately detect significant hypoglycemia,and testing in the Laboratory should be considered if clinically indicated. POC Performer [phone] [facility] Blood 01/20/2025 7:48 AM CDT 01/20/2025 7:48 AM CDT Brayden Hopkins MD LAB POCT ORDERABLES - KATE CE Final Result Performing Organization Address City/[facility]/ZIP Co de Phone Number [facility] [address] [facility] [place] [address] * Critical Care (01/20/2025 7:03 AM CDT) Narrative Malcolm Valverde MD - 01/20/2025 7:03 AM CDT Malcolm Valverde MD 01/21/2025 8:55 AM Critical Care Performed by: Kaelyn Gale NP Authorized by: Kaelyn Gale NP CRITICAL CARE: Team: [facility] CT Shift: AM Level of [...] plan with the patient's team and other medical/salesforce consultant staff. This time was in addition [...] signed by: Mau Roland M.D. Kaelyn Gale [employer] IMG XR PROCEDURES Final Re sult * Lactate (01/20/2025 5:40 AM CDT) Lactate 2.0 0.7 - 2.0 mmol/L Blood 01/20/2025 5:40 AM CDT 01/20/2025 5:50 AM CDT Elsa Doe NP LAB BLOOD ORDERABLES Madhavi l Result STEPHANIE [facility] [address] [place] [address] * eGFR (01/20/2025 5:40 AM [...] BLOOD ORDERABLES Final Result Performing Organization Address City/[facility]/ZIP Co de Phone Number [facility] [address] [place] [address] * (ABNORMAL) CBC without differential (01/20/2025 5:40 AM CDT) WBC 21.31(H) 3.80 - 9.90 K/cumm Hgb 9.3(L) 13.0 - 17.5 g/dL [facility] Hct 29.6(L) 38.9 - 50.3 % [facility] Plt 220 150 - 400 K/cumm [facility] MPV 11.2 9.1 - 12.3 fL [facility] RBC 3.27(L) 4.30 - 5.80 M/cumm [facility] MCV 90.5 81.3 - 96.4 fL [facility] MCH 28.4 27.1 - 33.3 pg [facility] MCHC 31.4(L) 32.3 - 35.7 g/dL [facility] RDW CV 17.3(H) 11.1 - 14.9 % [facility] RDW SD 55.4(H) 35.7 - 48.1 fL [facility] NRBC abs 0.00 0.00 - 0.01 K/cumm [facility] Blood 01/20/2025 5:40 AM CDT 01/20/2025 5:55 AM CDT Kaelyn Gale NP LAB BLOOD ORDERABLES Final Result Performing Organization Address City/[facility]/ZIP Co de Phone Number [facility] [address] [place] [address] * Phosphorus (01/20/2025 5:40 AM CDT) [facility] Phosphorus, pl 3.0 2.3 - 4.5 mg/dL Blood 01/20/2025 5:40 AM CDT 01/20/2025 5:53 AM CDT [facility] [employer] LAB BLOOD ORDERABLES Fin al Result Performing Organization Address [facility]/ZIP Co de Phone Number [facility] [address] [place] [address] * Magnesium (01/20/2025 5:40 AM CDT) [facility] Magnesium 2.0 1.4 - 2.5 mg/dL Blood 01/20/2025 5:40 AM CDT 01/20/2025 5:53 AM CDT [facility] [employer] LAB BLOOD ORDERABLES Fin al Result Performing Organization Address [facility] de Phone Number [facility] [address] [place] [address] * (ABNORMAL) Basic metabolic panel (01/20/2025 5:40 AM CDT) [facility] Sodium 139 135 - 145 mmol/L Potassium, pl 5.3(H) 3.3 - 4.9 mmol/L [facility] Comment:Hemolyzed; potassium value may be falsely elevated by as much as 0.6 - 1.0 mmol/L. Suggest redraw and reanalysis Chloride 106 97 - 110 mmol/L [facility] CO2 22 22 - 32 mmol/L [facility] Anion gap 11 2 - 15 mmol/L [facility] BUN 35(H) 6 - 25 mg/dL [facility] Creatinine 0.68(L) 0.80 - 1.30 mg/dL [facility] Glucose 155 70 - 199 mg/dL [facility] Comment: Interpretive Data Fasting glucose >/= 126 [...] 2022. Calcium 7.8(L) 8.5 - 10.3 mg/dL [facility] Blood 01/20/2025 5:40 AM CDT 01/20/2025 5:41 AM CDT us Brayden Hopkins MD LAB BLOOD ORDERABLES Final Result [facility] [address] [place] [address] * (ABNORMAL) CBC without differential (01/20/2025 12:04 AM CDT) WBC 22.37(H) 3.80 - 9.90 K/cumm Hgb 10.3(L) 13.0 - 17.5 g/dL [facility] Hct 32.7(L) 38.9 - 50.3 % [facility] Plt 325 150 - 400 K/cumm [facility] MPV 11.5 9.1 - 12.3 fL [facility] RBC 3.67(L) 4.30 - 5.80 M/cumm [facility] MCV 89.1 81.3 - 96.4 fL [facility] Comment:MCV delta due to garry arent blood transfusion. This result has been called to Young CURRY by [id number] on 01/20/2025 01:24:08. MCH 28.1 27.1 - 33.3 pg [facility] MCHC 31.5(L) 32.3 - 35.7 g/dL [facility] RDW CV 16.7(H) 11.1 - 14.9 % [facility] RDW SD 53.7(H) 35.7 - 48.1 fL [facility] NRBC abs 0.02(H) 0.00 - 0.01 K/cumm [facility] Blood 01/20/2025 12:0 4 AM CDT 01/20/2025 12:36 AM CDT Kaelyn Gale [employer] LAB BLOOD ORDERABLES Final Result [facility] [address] [facility] [employer] [place], [place] [phone] * Potassium (01/20/2025 12:04 AM CDT) Pathologist [facility] Potassium, pl 4.1 3.3 - 4.9 mmol/L Blood 01/20/2025 12:0 4 AM CDT 01/20/2025 12:36 AM CDT Elsa Doe [employer] LAB BLOOD ORDERABLES Madhavi l Result Performing Organization Address [facility] Co de Phone Number [facility] [address] [facility] [employer] [place], [place] [phone] * Magnesium (01/20/2025 12:04 AM CDT) [facility] Magnesium 1.9 1.4 - 2.5 mg/dL Blood 01/20/2025 12:0 4 AM CDT 01/20/2025 12:36 AM CDT Elsa Doe [employer] LAB BLOOD ORDERABLES Madhavi l Result Performing Organization Address [facility] Co de Phone Number [facility] [address] [facility] [employer] [place], [place] [phone] * POCT glucose (01/19/2025 8:02 PM CDT) Pathologist [facility] Glucose, POC 142 70 - 199 mg/dL Comment: For Glucose values <35 mg/dl when Hematocrit is >60 mg/dl,the test may not accurately detect significant hypoglycemia,and testing in the Laboratory should be considered if clinically indicated. POC Performer [phone] [facility] Blood 01/19/2025 8:02 PM CDT 01/19/2025 8:02 PM CDT Result [facility] Brayden Hopkins MD LAB POCT ORDERABLES - KATE CE Final Result Performing Organization Address [facility] Co de Phone Number [facility] [address] [place] [address] * Critical Care (01/19/2025 7:49 PM CDT) Narrative Malcolm Valverde MD - 01/19/2025 7:49 PM CDT Malcolm Valverde MD 01/20/2025 7:53 AM Critical Care Performed by: Elsa Doe NP Authorized by: Elsa Doe NP CRITICAL CARE: Team: [facility] CT Shift: PM Level of [...] plan with the patient's team and other medical/salesforce consultant staff. This time was in addition to and separate from care provided by other practitioners on this day of service. I spent time documenting in the medical record, I spent time discussing the management of this critically ill patient with consultants and the medical staff and I spent time reviewing and interpreting data from bedside monitors, laboratory results, and imaging Elsa Doe [employer] IN CLINIC/BEDSIDE ORDERAB LES Final Result * Transfuse RBC (01/19/2025 5:51 PM CDT) Blood Bella Campoverde PA BLOOD TRANSFUSION ORDERABLES Final Result Performing Organization Address [facility]/ZIP Co de Phone Number [facility] [address] [place] [address] * POCT glucose (01/19/2025 5:49 PM CDT) [facility] Glucose, POC 164 70 - 199 mg/dL Comment: For Glucose values <35 mg/dl when Hematocrit is >60 mg/dl,the test may not accurately detect significant hypoglycemia,and testing in the Laboratory should be considered if clinically indicated. POC Performer [phone] [facility] Blood 01/19/2025 5:49 PM CDT 01/19/2025 5:49 PM CDT us Brayden Hopkins MD LAB POCT ORDERABLES - KATE CE Final Result Performing Organization Address City/[facility]/ZIP Co de Phone Number [facility] [address] [place] [address] * (ABNORMAL) Lactate (01/19/2025 5:47 PM CDT) [facility] Lactate 2.1(H) 0.7 - 2.0 mmol/L Blood 01/19/2025 5:47 PM CDT 01/19/2025 5:52 PM CDT Narrative [facility] - 01/19/2025 6:33 PM CDT Send with post transfusion CBC us Kaelyn Gale NP LAB BLOOD ORDERABLES Final Result Performing Organization Address City/[facility]/ZIP Co de Phone Number [facility] [address] [place] [address] * (ABNORMAL) CBC without differential (01/19/2025 5:47 PM CDT) [facility] WBC 23.48(H) 3.80 - 9.90 K/cumm Hgb 11.3(L) 13.0 - 17.5 g/dL [facility] Hct 38.4(L) 38.9 - 50.3 % [facility] Plt 323 150 - 400 K/cumm [facility] MPV 10.8 9.1 - 12.3 fL [facility] RBC 3.92(L) 4.30 - 5.80 M/cumm [facility] MCV 98.0(H) 81.3 - 96.4 fL [facility] MCH 28.8 27.1 - 33.3 pg [facility] MCHC 29.4(L) 32.3 - 35.7 g/dL [facility] RDW CV 16.4(H) 11.1 - 14.9 % [facility] RDW SD 57.1(H) 35.7 - 48.1 fL [facility] NRBC abs 0.02(H) 0.00 - 0.01 K/cumm [facility] Blood 01/19/2025 5:47 PM CDT 01/19/2025 5:53 PM CDT us Kaelyn Gale NP LAB BLOOD ORDERABLES Final Result [facility] [address] [place] [address] * Critical Care (01/19/2025 4:55 PM CDT) Narrative Malcolm Valverde MD - 01/19/2025 4:55 PM CDT Malcolm Valverde MD 01/20/2025 7:53 AM Critical Care Performed by: Kaelyn Gale NP Authorized by: Kaelyn Gale NP CRITICAL CARE: Team: [facility] CT Shift: AM Level of [...] plan with the patient's team and other medical/salesforce consultant staff. This time was in addition [...] Admit Type: Inpatient Room: [facility] Date of : 1955 Instrument Name: [...] physician, the nurse, the anesthesiologist and the lens coating technician in the pre-procedure area in the [...] 1 Units (01/19/2025 2:07 PM CDT) Pathologist [facility] Product code [id number] Unit Number [id number] [facility] Product Blood Type BPOS [facility] Dispense Status PRESUMED TRANSFUSED [facility] Blood 01/19/2025 2:07 PM CDT Narrative [facility] - 01/21/2025 11:34 AM CDT Are special requirements needed? (All products are leukoreduced and CMV- safe)- >No Date required:-[id number] LRRBC # of [id number] Reasons:-Hemorrhagic shock/Life-threatening bleeding} Bella MCGUIRE BLOOD BANK PRODUCT ORDERABLE S Final Result Performing Organization Address [facility]/ZIP Co de Phone Number [facility] [address] [place] [address] * (ABNORMAL) Hemoglobin and hematocrit (01/19/2025 12:37 PM CDT) Pathologist [facility] Hgb 9.7(L) 13.0 - 17.5 g/dL Hct 30.4(L) 38.9 - 50.3 % [facility] Blood 01/19/2025 12:3 7 PM CDT 01/19/2025 1:02 PM CDT Bella MCGUIRE LAB BLOOD ORDERABLES Final R esult [facility] [address] Department [place] [address] * XR Chest 1 View (01/19/2025 12:22 [...] be considered if clinically indicated. POC Performer [phone] [facility] Blood 01/19/2025 12:1 1 PM CDT 01/19/2025 12:11 PM CDT Brayden Hopkins MD LAB POCT ORDERABLES - KATE CE Final Result Performing Organization Address City/[facility]/ZIP Co de Phone Number [facility] [address] [place] [address] * NT-Pro BNP - Add on lab test (01/19/2025 11:45 AM CDT) Acceptable Yes Blood 01/19/2025 11:4 5 AM CDT 01/19/2025 11:45 AM CDT Narrative [facility] - 01/19/2025 11:46 AM CDT Name of Test->NT-Pro BNP Balbina Mac NP LAB BLOOD ORDERABLES Fi nal Result Performing Organization Address City/[facility]/ZIP Co de Phone Number [facility] [address] [place] [address] * Blood culture Blood (01/19/2025 10:41 AM CDT) Report Final Report: No growth Blood 01/19/2025 10:4 1 AM CDT 01/19/2025 11:35 AM CDT Narrative [facility] - 01/24/2025 1:01 PM CDT Collection->Peripheral Interpretive [...] organism identification may be performed using the [employer] Blood Culture Identification panel. This assay detects microbial DNA in a blood culture broth. This assay has been cleared by the [place] Food and Drug Administration and its performance characteristics have been verified by the [facility]. Interpretive data was last revised on November 09, 2022. Eric Neal MD LAB MICROBIOLOGY - GENERAL ORDE RABLES Final Result [facility] [address] [place] [address] * Type and screen (01/19/2025 8:52 AM CDT) ABO Rh B Positive Esme, indirect Negative [facility] Blood 01/19/2025 8:52 AM CDT 01/19/2025 8:56 AM CDT Narrative [facility] - 01/19/2025 9:56 AM CDT Has the patient had Daratumumab or Isatuximab in the past 6 months?->Unknown Bella MCGUIRE LAB BLOOD BANK TEST ORDERABL ES Final Result Performing Organization Address [facility] Co de Phone Number [facility] [address] Department of [employer] [place], [place] [phone] * C. difficile testing Stool (01/19/2025 8:11 AM CDT) Pathologist [facility] GDH Result Negative Negative Toxin Result Negative Negative [facility] C. diff result Negative, free toxin Negative, free toxin [facility] C. diff interp Negative for toxigenic Clostridioides (Clostridium) difficile. Analysis was performed using a glutamate dehydrogenase antigen detection assay combined with a C. difficile toxin detection assay. [facility] Stool 01/19/2025 8:11 AM CDT 01/19/2025 3:24 PM CDT us Bella MCGUIRE LAB MICROBIOLOGY - GENERAL O RDERABLES Final Result Performing Organization Address City/[facility]/ZIP Co de Phone Number [facility] [address] Department of [employer] [place], [place] [id number] * (ABNORMAL) Lactate (01/19/2025 8:11 AM CDT) Pathologist [facility] Lactate 4.1(C) 0.7 - 2.0 mmol/L Comment:Critical result call ed to and read back by Yulisa CURRY on 01/19/2025 0858 to [id number] Blood 01/19/2025 8:11 AM CDT 01/19/2025 8:34 AM CDT Bella MCGUIRE LAB BLOOD ORDERABLES Final R esult Performing Organization Address [facility]/ZIP Co de Phone Number [facility] [address] [employer] [place], [place] [phone] * eGFR (01/19/2025 8:11 AM CDT) eGFR [...] ORDERABLES Final R esult Performing Organization Address City/[facility]/ZIP Co de Phone Number [facility] [address] Department [place], [place] [phone] * (ABNORMAL) Pro B-type natriuretic peptide (01/19/2025 [...] MD LAB BLOOD ORDERABLES Final Result [facility] [address] [place] [address] * (ABNORMAL) Occult blood gastric (01/19/2025 8:11 AM CDT) Occult blood, gastric Positive(A ) Negative Gastric 01/19/2025 8:1 1 AM CDT 01/19/2025 8:50 AM CDT Narrative [facility] - 01/19/2025 8:54 AM CDT Stool Fluid Detail:->Gastric Bella MCGUIRE LAB BODY FLUIDS AND STOOLS O RDERABLES Final Result Performing Organization Address [facility] Co de Phone Number [facility] [address] [facility] [place] [address] * aPTT (01/19/2025 8:11 AM CDT) aPTT [...] ORDERABLES Final R esult Performing Organization Address [facility] Co de Phone Number [facility] [address] [facility] [place] [address] * (ABNORMAL) Protime-INR (01/19/2025 8:11 AM CDT) PT 14.6(H) 9.7 - 13.0 sec INR 1.34(H) 0.90 - 1.20 [facility] Comment: Interpretive data Oral anticoagulant therapeutic ranges: Venous thromboembolism prophylaxis or treatment: 2.0-3.0 CARDIOLOGY Standard range: 2.0-3.0 High-intensity range: 2.5-3.5 Refer to indication-specific guidelines for appropriate target ranges for prosthetic heart valve replacement. Current interpretive data was last revised on 2019. Blood 01/19/2025 8:11 AM CDT 01/19/2025 8:41 AM CDT Bella MCGUIRE LAB BLOOD ORDERABLES Final R esult Performing Organization Address City/[facility]/ZIP Co de Phone Number [facility] [address] [facility] [employer] [place], [place] [phone] * Lactate dehydrogenase (LD) (01/19/2025 8:11 AM CDT) Pathologist [facility] Lactate dehydrogenase (LDH) 177 100 - 250 Units/L Blood 01/19/2025 8:11 AM CDT 01/19/2025 8:41 AM CDT Bella MCGUIRE LAB BLOOD ORDERABLES Final R esult Performing Organization Address [facility] Co de Phone Number [facility] [address] Department [employer] [place], [place] [phone] * (ABNORMAL) Blood gas, arterial (01/19/2025 8:11 AM CDT) Pathologist [facility] pH, Art 7.43 7.35 - 7.45 PCO2, Arterial 30(L) 35 - 45 mmHg [facility] PO2, Arterial 162(H) 83 - 108 mmHg [facility] HCO3 Art (Calculated) 20 20 - 30 mmol/L [facility] BE, art -3 mmol/L [facility] Comment: Interpretive Data No Reference Range Established Current Interpretive Data was last revised on 2017 O2 Sat Art (Calculated) 100(H) 94 - 98 % [facility] Blood 01/19/2025 8:11 AM CDT 01/19/2025 8:34 AM CDT Bella MCGUIRE LAB BLOOD ORDERABLES Final R esult Performing Organization Address City/[facility] Co de Phone Number [facility] [address] [facility] [employer] [place], [place] [phone] * (ABNORMAL) Comprehensive metabolic panel (01/19/2025 8:11 AM CDT) Pathologist [facility] Sodium 138 135 - 145 mmol/L Potassium, pl 4.9 3.3 - 4.9 mmol/L [facility] Chloride 105 97 - 110 mmol/L [facility] CO2 18(L) 22 - 32 mmol/L [facility] Anion gap 15 2 - 15 mmol/L [facility] BUN 53(H) 6 - 25 mg/dL [facility] Creatinine 0.98 0.80 - 1.30 mg/dL [facility] Glucose 300(H) 70 - 199 mg/dL [facility] Comment: Interpretive Data Fasting glucose >/= 126 [...] 2022. Calcium 8.0(L) 8.5 - 10.3 mg/dL [facility] Bilirubin, total <0.2 0.1 - 1.2 mg/dL [facility] Protein, pl 5.4(L) 6.5 - 8.5 g/dL [facility] Albumin 2.5(L) 3.5 - 5.0 g/dL [facility] Alk phos 87 40 - 130 Units/L [facility] ALT 37 7 - 55 Units/L [facility] [facility] AST 22 10 - 50 Units/L [facility] Blood 01/19/2025 8:11 AM CDT 01/19/2025 8:41 AM CDT us Bella MCGUIRE LAB BLOOD ORDERABLES Final R esult [facility] [address] [place] [address] * (ABNORMAL) Hemoglobin and hematocrit (01/19/2025 8:04 AM CDT) Hgb 11.7(L) 13.0 - 17.5 g/dL Hct 37.5(L) 38.9 - 50.3 % [facility] Blood 01/19/2025 8:04 AM CDT 01/19/2025 8:04 AM CDT us Bella MCGUIRE LAB BLOOD ORDERABLES Final R esult Performing Organization Address City/[facility]/ZIP Co de Phone Number [facility] [address] Department [place]ondo [place], [place] [id number] * (ABNORMAL) POCT glucose (01/19/2025 7:48 AM CDT) Pathologist [facility] Glucose, POC 240(H) 70 - 199 mg/dL Comment: For Glucose values <35 mg/dl when Hematocrit is >60 mg/dl,the test may not accurately detect significant hypoglycemia,and testing in the Laboratory should be considered if clinically indicated. POC Performer [phone] [facility] Blood 01/19/2025 7:48 AM CDT 01/19/2025 7:48 AM CDT us Brayden Hopkins MD LAB POCT ORDERABLES - KATE CE Final Result Performing Organization Address [facility]/ZIP Co de Phone Number [facility] [address] [place] [address] * (ABNORMAL) CBC with auto differential (01/19/2025 4:54 AM CDT) [facility] WBC 24.23(H) 3.80 - 9.90 K/cumm Hgb 11.3(L) 13.0 - 17.5 g/dL [facility] Hct 37.0(L) 38.9 - 50.3 % [facility] Plt 462(H) 150 - 400 K/cumm [facility] MPV 11.2 9.1 - 12.3 fL [facility] RBC 3.83(L) 4.30 - 5.80 M/cumm [facility] MCV 96.6(H) 81.3 - 96.4 fL [facility] MCH 29.5 27.1 - 33.3 pg [facility] MCHC 30.5(L) 32.3 - 35.7 g/dL [facility] RDW CV 14.0 11.1 - 14.9 % [facility] RDW SD 49.1(H) 35.7 - 48.1 fL [facility] NRBC abs 0.00 0.00 - 0.01 K/cumm [facility] Morphologic Screen Results confirmed by manual morphology review. [facility] Blood 01/19/2025 4:54 AM CDT 01/19/2025 5:13 AM CDT us Tucker MCGUIRE LAB BLOOD ORDERABLES Final Result [facility] [address] [place] [address] * (ABNORMAL) Manual Differential (01/19/2025 4:54 AM CDT) Differential Manual Cells Counted 118 [facility] Neutrophil abs 20.33(H) 1.50 - 6.50 K/cumm [facility] Lymphocyte abs 1.65 0.80 - 3.30 K/cumm [facility] Monocyte abs 2.06(H) 0.20 - 0.80 K/cumm [facility] Basophil abs 0.19(H) 0.00 - 0.10 K/cumm [facility] Neutrophil pct 83.9 % [facility] Comment: Interpretive Data Percent cell count reference ranges are not reported, since discordance with absolute values may lead to misinterpretation of CBC data. Current Interpretive Data was last revised on 2018. Lymphocyte pct 6.8 % [facility] Comment: Interpretive Data Percent cell count reference ranges are not reported, since discordance with absolute values may lead to misinterpretation of CBC data. Current Interpretive Data was last revised on 2018. Monocyte pct 8.5 % [facility] Comment: Interpretive Data Percent cell count reference ranges are not reported, since discordance with absolute values may lead to misinterpretation of CBC data. Current Interpretive Data was last revised on 2018. Basophil pct 0.8 % [facility] Comment: Interpretive Data Percent cell count reference ranges are not reported, since discordance with absolute values may lead to misinterpretation of CBC data. Current Interpretive Data was last revised on 2018. RBC morphology Normal [facility] Platelet estimate Increased( A) [facility] Morphology scrn See Comment [facility] Comment:PLT: Platelet morpho logy normal Blood 01/19/2025 4:54 AM CDT 01/19/2025 5:13 AM CDT us Tucker MCGUIRE LAB BLOOD ORDERABLES Final Result Performing Organization Address City/[facility]/ZIP Co de Phone Number [facility] [address] [place] [address] * eGFR (01/19/2025 12:18 AM CDT) eGFR [...] MCGUIRE LAB BLOOD ORDERABLES Fin al Result [facility] [address] [place] [address] * (ABNORMAL) Basic metabolic panel (01/19/2025 12:18 AM CDT) [facility] Sodium 143 135 - 145 mmol/L Potassium, pl 4.2 3.3 - 4.9 mmol/L [facility] Chloride 100 97 - 110 mmol/L [facility] CO2 24 22 - 32 mmol/L [facility] Anion gap 19(H) 2 - 15 mmol/L [facility] BUN 37(H) 6 - 25 mg/dL [facility] Creatinine 0.95 0.80 - 1.30 mg/dL [facility] Glucose 198 70 - 199 mg/dL [facility] Comment: Interpretive Data Fasting glucose >/= 126 [...] 2022. Calcium 8.4(L) 8.5 - 10.3 mg/dL [facility] Blood 01/19/2025 12:1 8 AM CDT 01/19/2025 12:46 AM CDT Desire Ghotra NP LAB BLOOD ORDERABLES Fin al [facility] [address] [place] [address] * (ABNORMAL) Hemoglobin A1c (12/17/2024 12:55 PM CDT) [facility] Hgb A1C 6.4(H) 4.0 - 5.6 % Estimated Average Glucose 137 mg/dL [facility] Comment: The ADA recommends reporting an estimated Average Glucose (eAG) with all Hemoglobin A1c results using the equation derived from a study of 507 normal and diabetic adults. Minority populations were underrepresented and children were not included. (Diabetes Care 31:2355-9506, 2008). The eAG is not equivalent to a fasting glucose. Blood 12/17/2024 12:5 5 PM CDT 12/17/2024 1:09 PM CDT us Carlyn Minaya MD LAB BLOOD ORDERABLES Final Result [facility] [address] [place] [address] * (ABNORMAL) Lipid panel (12/17/2024 12:55 PM [...] revised on 2018. Triglycerides 125 <=149 mg/dL [facility] Comment: Interpretive Data Ages < or = [...] revised on 2018. HDL 38(L) >=40 mg/dL [facility] Comment: Interpretive Data Ages < or = [...] on 2018. LDL, calculated 79 <=129 mg/dL [facility] Comment: Interpretive Data Ages < or = [...] revised on 2024. Non-HDL Cholesterol 101 mg/dL [facility] Comment: Interpretive Data Ages < or = [...] last revised on 2018. Chol/HDL ratio 4 [facility] Blood 12/17/2024 12:5 5 PM CDT 12/17/2024 1:09 PM CDT us Carlyn Minaya MD LAB BLOOD ORDERABLES Final Result [facility] [address] [place] [address] * CT Chest WO Contrast F/U Lung Screen Protocol (12/06/2022 8:05 AM QUANTITATIVE DEVELOPER) Anatomical Region Laterality Modality Chest N/A Computed Tomogra phy 12/07/2022 7:38 AM QUANTITATIVE DEVELOPER Narrative 12/07/2022 7:48 AM QUANTITATIVE DEVELOPER EXAM DESCRIPTION: CT CHEST WO CONTRAST F/U [...] Shannon Gardiner M.D. TW: TW Report ID: [id number] Reading Location: [place] [address] Procedure Note Shannon Gardiner MD - 12/07/2022 [...] Shannon Gardiner M.D. TW: TW Report ID: [id number] Reading Location: [place] [address] Chacha Velazquez MD IMG CT PROCEDURES Final Resul t from Last 3 Months or Most Recently Relevant to Health Maintenance Insurance [employer] MEDICARE ADVANTAGE Advance Directives For more information, please contact: [phone] * Full Code (Latest Code Status on File) Date Activated Date Inactivated Comments 02/18/2025 7:59 PM 03/11/2025 9:12 PM * Full Code Date Activated Date Inactivated Comments 01/15/2025 2:57 PM 01/25/2025 3:50 PM * Full Code Date Activated Date Inactivated Comments 12/22/2024 11:55 AM 12/31/2024 6:37 PM * Full Code Date Activated Date Inactivated Comments 11/10/2024 11:01 AM 11/10/2024 5:45 PM Care Teams Missionary Coordinator Relationship Specialty Start Date End Date Radha Epps, JUANA [address] [facility] [address] [place] [address] [address] PCP - General Nurse Practitioner 12/10/24 Richi Healy MD [address] [facility] [address] [place]ON [address] [place] [id number] Referring Physician Cardiology 11/13/24 Carlyn Minaya MD [address] [address] [place] [address] Consulting Physician Cardiothoracic Surgery 11/13/24
--- OUTSIDE RECORDS SUMMARY | 2025-04-20 23:06 | XMS_ITS | Clinical Summary ---
Author Organization 4 [facility] Address 4 [place] [address] Care Team Providers Care Material Lister Name Role Phone Richi Healy MD Unavailable Carlyn Minaya MD Unavailable [phone] Radha Epps NP Primary Care Provider Allergies [...] Description 04/20/2025 9:05 AM CDT Hospital Encounter [facility] 1 [place] [address] Chronic combined systolic and diastolic heart failure (HCC) 03/13/2025 Telephone [facility] [address] [place] [address] [address] [place] [address] Paolo Wilson 03/12/2025 Telephone [facility] [address] [facility] [address] 4 [place] [address] Saloni Neff 03/03/2025 Orders Only [facility] - Interventional Radiology [facility] [place] [address] Junior Amaya RN 02/18/2025 7:39 PM CDT - 03/11/2025 5:07 PM CDT Hospital Encounter [address] [place] [address] Rehana Shipley DO Anand, MD [...] Discharge to SNF 02/05/2025 Telephone [facility] [place] [address] [facility] [address] [place] [phone] Raine Martinez EP-C cr follow up call 01/26/2025 [facility] Post Discharge Follow up phone call [address] [address] Destiny Rausch RN 01/25/2025 9:50 AM CDT - 01/25/2025 11:59 PM CDT Hospital Encounter [facility] Cardiac Testing [address] [place] [address] [address] [place] [address] Discharge Disposition: Discharge to home or self care 01/19/2025 3:28 PM CDT Anesthesia Event [facility] [address] [place] [phone] Huang Hughes MD Toler, Mary Katherine, CRNA 01/19/2025 2:40 PM CDT - 01/19/2025 3:10 PM CDT Surgery [facility] [place] [phone] Eric Neal MD EGD 01/15/2025 2:33 PM CDT - 01/25/2025 11:50 AM CDT Hospital Encounter [address] [place] [phone] Brayden Hopkins MD Acute on chronic systolic [...] ANGIOGRAPHY AND WITH OR WITHOUT LEFT VENTRICULOGRAM [id number]; Surgeon: Ed Gustafson MD; Location: [facility]; Service: Cardiovascular; Laterality: N/A; CARDIAC CATHETERIZATION 11/10/2024 N/A Procedure: Coronary Flow Velocity (CFR) / Instantaneous Flow Velocity (IFR), 1st Vessel; Surgeon: Ed Gustafson MD; Location: [facility]; Service: Cardiovascular; Laterality: N/A; CARDIAC CATHETERIZATION 11/10/2024 N/A Procedure: Coronary Flow Velocity (CFR) / Instantaneous Flow Velocity (IFR), Ea Addtn'l Vessel; Surgeon: Ed Gustafson MD; Location: [facility]; Service: Cardiovascular; Laterality: N/A; Medical History Medical History Date Comments Diabetes mellitus (HCC) Polycythemia Coronary artery disease Hypertension Family History Medical History Relation Name Comments Heart disease Mother rheumatic hear t diseasej/murmur Relation Name Status Comments Mother Social History Tobacco Use Types Packs/Day Years Used Date Smoking Tobacco: Former Cigarettes 1.3 51.1 1 974 - 11/09/2024 Tobacco Cessation:Counseling Given: No [facility] Utilities Answer Date Recorded In the past 12 months has [employer], [employer] or [employer] threatened to shut off services in your home? No 02/19/2025 Social Connection and Isolation Panel [NHANES] A nswer Date Recorded In a typical week, how many times do you talk on the phone with family, friends, or neighbors? Twice a week 02/19/2025 How often do you get together with friends or re latives? Twice a week 02/19/2025 How often do you attend evangelical or buddhism serv ices? Never 02/19/2025 Do you belong to any clubs o r organizations such as evangelical groups, unions, fraternal or athletic groups, or [...] any time in the past [address] [facility], were you homeless or living in a correction (including now)? No 02/19/2025 Personal Safety Answer Date Recorded Have you ever been in or are you currently in a harmful physical or emotional relationship or is someone making you feel afraid or unsafe? 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) Pre-op evaluation Type 2 diabetes mellitus with hyperglycemia, with long-term current use of insulin ([facility]) LIPID PANEL Routine 12/17/2024 12:55 PM CDT 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 POC Performer [id number] [facility] Blood 03/11/2025 12:2 3 PM CDT 03/11/2025 12:23 PM CDT Gil Pierce MD LAB POCT ORDERABLES - DE VICE Final Result Performing Organization Address City/[facility]/ZIP Co de Phone Number [facility] [address] [employer] [address] * POCT glucose (03/11/2025 6:08 AM CDT) Glucose, POC 112 70 - 199 mg/dL Comment: For Glucose values <35 mg/dl when Hematocrit is >60 mg/dl,the test may not accurately detect significant hypoglycemia,and testing in the Laboratory should be considered if clinically indicated. POC Performer [id number] [facility] Blood 03/11/2025 6:08 AM CDT 03/11/2025 6:08 AM CDT Gil Pierce MD LAB POCT ORDERABLES - DE VICE Final Result Performing Organization Address City/[facility]/ZIP Co de Phone Number [facility] [address] Department [place] [place] [address] * (ABNORMAL) Blood smear review (03/11/2025 6:05 AM CDT) Pathologist [facility] RBC morphology Present(A) Hypochromasia 3-7/HPF(A) [facility] Anisocytosis Slight(A) [facility] Elliptocytes 3-7/HPF(A) [facility] Platelet estimate Adequate [facility] Morphology scrn See Comment [facility] Comment:WBC: Toxic Granulati on present RBC: Blair cells present Blood 03/11/2025 6:05 AM CDT 03/11/2025 6:14 AM CDT us Chase Keen MD LAB BLOOD ORDERABLES Final Resul t [facility] [address] Department [place] [address] * (ABNORMAL) Differential, auto (03/11/2025 6:05 AM CDT) Pathologist [facility] Neutrophil abs 20.77(H) 1.50 - 6.50 K/cumm Imm gran abs 0.68(H) 0.00 - 0.10 K/cumm [facility] Lymphocyte abs 2.19 0.80 - 3.30 K/cumm [facility] Monocyte abs 2.24(H) 0.20 - 0.80 K/cumm [facility] Eosinophil abs 0.11 0.00 - 0.50 K/cumm [facility] Basophil abs 0.13(H) 0.00 - 0.10 K/cumm [facility] Neutrophil pct 79.5 % [facility] Comment: Interpretive Data Percent cell count reference ranges are not reported, since discordance with absolute values may lead to misinterpretation of CBC data. Current Interpretive Data was last revised on 2018. Imm gran pct 2.6 % [facility] Comment: Interpretive Data Percent cell count reference ranges are not reported, since discordance with absolute values may lead to misinterpretation of CBC data. Current Interpretive Data was last revised on 2018. Lymphocyte pct 8.4 % [facility] Comment: Interpretive Data Percent cell count reference ranges are not reported, since discordance with absolute values may lead to misinterpretation of CBC data. Current Interpretive Data was last revised on 2018. Monocyte pct 8.6 % [facility] Comment: Interpretive Data Percent cell count reference ranges are not reported, since discordance with absolute values may lead to misinterpretation of CBC data. Current Interpretive Data was last revised on 2018. Eosinophil pct 0.4 % [facility] Comment: Interpretive Data Percent cell count reference ranges are not reported, since discordance with absolute values may lead to misinterpretation of CBC data. Current Interpretive Data was last revised on 2018. Basophil pct 0.5 % [facility] Comment: Interpretive Data Percent cell count reference ranges are not reported, since discordance with absolute values may lead to misinterpretation of CBC data. Current Interpretive Data was last revised on 2018. Blood 03/11/2025 6:05 AM CDT 03/11/2025 6:14 AM CDT us Chase Keen MD LAB BLOOD ORDERABLES Final Resul t [facility] [address] Department [place] [address] * (ABNORMAL) CBC with auto differential (03/11/2025 6:05 AM CDT) WBC 26.12(H) 3.80 - 9.90 K/cumm Hgb 8.9(L) 13.0 - 17.5 g/dL [facility] Hct 29.6(L) 38.9 - 50.3 % [facility] Plt 283 150 - 400 K/cumm [facility] MPV 9.6 9.1 - 12.3 fL [facility] RBC 3.09(L) 4.30 - 5.80 M/cumm [facility] MCV 95.8 81.3 - 96.4 fL [facility] MCH 28.8 27.1 - 33.3 pg [facility] MCHC 30.1(L) 32.3 - 35.7 g/dL [facility] RDW CV 16.6(H) 11.1 - 14.9 % [facility] RDW SD 55.8(H) 35.7 - 48.1 fL [facility] NRBC abs 0.02(H) 0.00 - 0.01 K/cumm [facility] Blood 03/11/2025 6:05 AM CDT 03/11/2025 6:14 AM CDT Chase Keen MD LAB BLOOD ORDERABLES Final Resul t Performing Organization Address City/[facility]/ZIP Co de Phone Number [facility] [address] Department [place] [place] [address] * POCT glucose (03/10/2025 8:45 PM CDT) Glucose, POC 175 70 - 199 mg/dL Comment: For Glucose values <35 mg/dl when Hematocrit is >60 mg/dl,the test may not accurately detect significant hypoglycemia,and testing in the Laboratory should be considered if clinically indicated. POC Performer [id number] [facility] Blood 03/10/2025 8:45 PM CDT 03/10/2025 8:45 PM CDT Gil Pierce MD LAB POCT ORDERABLES - DE VICE Final Result Performing Organization Address [facility] de Phone Number [id number] Panteratrina [facility] [place] [employer] [place] [address] * POCT glucose (03/10/2025 4:52 PM CDT) Glucose, POC 146 70 - 199 mg/dL Comment: For Glucose values <35 mg/dl when Hematocrit is >60 mg/dl,the test may not accurately detect significant hypoglycemia,and testing in the Laboratory should be considered if clinically indicated. POC Performer [id number] [facility] Blood 03/10/2025 4:52 PM CDT 03/10/2025 4:52 PM CDT Gil Pierce MD LAB POCT ORDERABLES - DE VICE Final Result Performing Organization Address City/[facility]/ZIP Co de Phone Number [facility] [address] [facility] [employer] [place], [place] [id number] * POCT glucose (03/10/2025 12:58 PM CDT) Glucose, POC 151 70 - 199 mg/dL Comment: For Glucose values <35 mg/dl when Hematocrit is >60 mg/dl,the test may not accurately detect significant hypoglycemia,and testing in the Laboratory should be considered if clinically indicated. POC Performer [id number] [facility] Blood 03/10/2025 12:5 8 PM CDT 03/10/2025 12:58 PM CDT Gil Pierce MD LAB POCT ORDERABLES - DE VICE Final Result Performing Organization Address [facility] Co de Phone Number [facility] [address] [facility] [address] * POCT glucose (03/10/2025 6:19 AM CDT) Glucose, POC 116 70 - 199 mg/dL Comment: For Glucose values <35 mg/dl when Hematocrit is >60 mg/dl,the test may not accurately detect significant hypoglycemia,and testing in the Laboratory should be considered if clinically indicated. POC Performer [id number] [facility] Blood 03/10/2025 6:19 AM CDT 03/10/2025 6:19 AM CDT Gil Pierce MD LAB POCT ORDERABLES - DE VICE Final Result Performing Organization Address City/[facility]/ZIP Co de Phone Number [facility] [address] [facility] [employer] [place], [place] [id number] * eGFR (03/10/2025 3:44 AM CDT) eGFR [...] MD LAB BLOOD ORDERABLES Final Re sult [facility] [address] Department [place] [address] * (ABNORMAL) Differential, auto (03/10/2025 3:44 AM CDT) Neutrophil abs 20.12(H) 1.50 - 6.50 K/cumm Imm gran abs 0.76(H) 0.00 - 0.10 K/cumm [facility] Lymphocyte abs 2.62 0.80 - 3.30 K/cumm [facility] Monocyte abs 2.16(H) 0.20 - 0.80 K/cumm [facility] Eosinophil abs 0.19 0.00 - 0.50 K/cumm [facility] Basophil abs 0.07 0.00 - 0.10 K/cumm [facility] Neutrophil pct 77.7 % [facility] Comment: Differential consistent with previous result. Interpretive Data Percent cell count reference ranges are not reported, since discordance with absolute values may lead to misinterpretation of CBC data. Current Interpretive Data was last revised on 2018. Imm gran pct 2.9 % [facility] Comment: Interpretive Data Percent cell count reference ranges are not reported, since discordance with absolute values may lead to misinterpretation of CBC data. Current Interpretive Data was last revised on 2018. Lymphocyte pct 10.1 % [facility] Comment: Interpretive Data Percent cell count reference ranges are not reported, since discordance with absolute values may lead to misinterpretation of CBC data. Current Interpretive Data was last revised on 2018. Monocyte pct 8.3 % [facility] Comment: Interpretive Data Percent cell count reference ranges are not reported, since discordance with absolute values may lead to misinterpretation of CBC data. Current Interpretive Data was last revised on 2018. Eosinophil pct 0.7 % [facility] Comment: Interpretive Data Percent cell count reference ranges are not reported, since discordance with absolute values may lead to misinterpretation of CBC data. Current Interpretive Data was last revised on 2018. Basophil pct 0.3 % [facility] Comment: Interpretive Data Percent cell count reference ranges are not reported, since discordance with absolute values may lead to misinterpretation of CBC data. Current Interpretive Data was last revised on 2018. Blood 03/10/2025 3:44 AM CDT 03/10/2025 3:59 AM CDT us Chase Keen MD LAB BLOOD ORDERABLES Final Resul t [facility] [address] Department [place] [address] * (ABNORMAL) CBC with auto differential (03/10/2025 3:44 AM CDT) WBC 25.92(H) 3.80 - 9.90 K/cumm Hgb 8.4(L) 13.0 - 17.5 g/dL [facility] Hct 27.2(L) 38.9 - 50.3 % [facility] Plt 287 150 - 400 K/cumm [facility] MPV 9.7 9.1 - 12.3 fL [facility] RBC 2.88(L) 4.30 - 5.80 M/cumm [facility] MCV 94.4 81.3 - 96.4 fL [facility] MCH 29.2 27.1 - 33.3 pg [facility] MCHC 30.9(L) 32.3 - 35.7 g/dL [facility] RDW CV 16.4(H) 11.1 - 14.9 % [facility] RDW SD 54.4(H) 35.7 - 48.1 fL [facility] NRBC abs 0.03(H) 0.00 - 0.01 K/cumm [facility] Blood 03/10/2025 3:44 AM CDT 03/10/2025 3:59 AM CDT us Chase Keen MD LAB BLOOD ORDERABLES Final Resul t Performing Organization Address City/[facility]/ZIP Co de Phone Number [facility] [address] Department [place] [address] * Lipase (03/10/2025 3:44 AM CDT) Pathologist [facility] Lipase 87 10 - 99 Units/L Blood 03/10/2025 3:44 AM CDT 03/10/2025 3:58 AM CDT us Chao Vann MD LAB BLOOD ORDERABLES Final Re sult Performing Organization Address City/[facility]/ZIP Co de Phone Number [facility] [address] Department [place] [address] * (ABNORMAL) Basic metabolic panel (03/10/2025 3:44 AM CDT) [facility] Sodium 137 135 - 145 mmol/L Potassium, pl 4.7 3.3 - 4.9 mmol/L [facility] Chloride 102 97 - 110 mmol/L [facility] CO2 22 22 - 32 mmol/L [facility] Anion gap 13 2 - 15 mmol/L [facility] BUN 28(H) 6 - 25 mg/dL [facility] Creatinine 1.13 0.80 - 1.30 mg/dL [facility] Glucose 114 70 - 199 mg/dL [facility] Comment: Interpretive Data Fasting glucose >/= [...] 2022. Calcium 7.9(L) 8.5 - 10.3 mg/dL [facility] Blood 03/10/2025 3:44 AM CDT 03/10/2025 3:58 AM CDT us Chao Vann MD LAB BLOOD ORDERABLES Final Re sult Performing Organization Address [facility]/ZIP Co de Phone Number [facility] [address] Department [place] [address] * (ABNORMAL) POCT glucose (03/09/2025 8:47 PM CDT) [facility] Signature Glucose, POC 210(H) 70 - 199 mg/dL Comment: For Glucose values <35 mg/dl when Hematocrit is >60 mg/dl,the test may not accurately detect significant hypoglycemia,and testing in the Laboratory should be considered if clinically indicated. POC Performer [id number] [facility] Blood 03/09/2025 8:47 PM CDT 03/09/2025 8:47 PM CDT us Gil Pierce MD LAB POCT ORDERABLES - DE VICE Final Result Performing Organization Address [facility]/ZIP Co de Phone Number [facility] [address] Department [place] [address] * Amylase - Add on lab test (03/09/2025 7:03 PM CDT) Acceptable Yes Blood 03/09/2025 7:03 PM CDT 03/09/2025 7:04 PM CDT Narrative [facility] - 03/09/2025 7:05 PM CDT Name of Test->Amylase Chao Vann MD LAB BLOOD ORDERABLES Final Re sult Performing Organization Address [facility]/ZIP Co de Phone Number [facility] [address] Department [place] [address] * POCT glucose (03/09/2025 5:40 PM CDT) Glucose, POC 129 70 - 199 mg/dL Comment: For Glucose values <35 mg/dl when Hematocrit is >60 mg/dl,the test may not accurately detect significant hypoglycemia,and testing in the Laboratory should be considered if clinically indicated. POC Performer [id number] [facility] Blood 03/09/2025 5:40 PM CDT 03/09/2025 5:40 PM CDT Gil Pierce MD LAB POCT ORDERABLES - DE VICE Final Result Performing Organization Address [facility] Co de Phone Number [facility] [address] Department [place] [address] * POCT glucose (03/09/2025 12:11 PM CDT) Glucose, POC 165 70 - 199 mg/dL Comment: For Glucose values <35 mg/dl when Hematocrit is >60 mg/dl,the test may not accurately detect significant hypoglycemia,and testing in the Laboratory should be considered if clinically indicated. POC Performer [phone] [facility] Blood 03/09/2025 12:1 1 PM CDT 03/09/2025 12:11 PM CDT Gil Pierce MD LAB POCT ORDERABLES - DE VICE Final Result Performing Organization Address [facility] Co de Phone Number [facility] [address] [facility] [place] [address] * Procalcitonin - Add on lab test (03/09/2025 10:43 AM CDT) Pathologist [facility] Acceptable Yes Blood 03/09/2025 10:4 3 AM CDT 03/09/2025 10:43 AM CDT Narrative [facility] - 03/09/2025 10:43 AM CDT Name of Test->Procalcitonin Gil Pierce MD LAB BLOOD ORDERABLES Fin al Result Performing Organization Address [facility] Co de Phone Number [facility] [address] [place] [address] * POCT glucose (03/09/2025 6:38 AM CDT) [facility] Glucose, POC 122 70 - 199 mg/dL Comment: For Glucose values <35 mg/dl when Hematocrit is >60 mg/dl,the test may not accurately detect significant hypoglycemia,and testing in the Laboratory should be considered if clinically indicated. POC Performer [id number] [facility] Blood 03/09/2025 6:38 AM CDT 03/09/2025 6:38 AM CDT Chase Keen MD LAB POCT ORDERABLES - DEVICE Fin al Result Performing Organization Address [facility] Co de Phone Number [facility] [address] [place] [address] * eGFR (03/09/2025 4:54 AM CDT) Pathologist [facility] eGFR 73 >=60 mL/min/1. 73 m2 Comment: [...] MD LAB BLOOD ORDERABLES Final Resul t [facility] [address] Department [place] [address] * (ABNORMAL) Differential, auto (03/09/2025 4:54 AM CDT) Neutrophil abs 21.28(H) 1.50 - 6.50 K/cumm Imm gran abs 1.01(H) 0.00 - 0.10 K/cumm [facility] Lymphocyte abs 2.38 0.80 - 3.30 K/cumm [facility] Monocyte abs 2.34(H) 0.20 - 0.80 K/cumm [facility] Eosinophil abs 0.15 0.00 - 0.50 K/cumm [facility] Basophil abs 0.11(H) 0.00 - 0.10 K/cumm [facility] Neutrophil pct 78.0 % [facility] Comment: Differential consistent with previous result. Interpretive Data Percent cell count reference ranges are not reported, since discordance with absolute values may lead to misinterpretation of CBC data. Current Interpretive Data was last revised on 2018. Imm gran pct 3.7 % [facility] Comment: Interpretive Data Percent cell count reference ranges are not reported, since discordance with absolute values may lead to misinterpretation of CBC data. Current Interpretive Data was last revised on 2018. Lymphocyte pct 8.7 % [facility] Comment: Interpretive Data Percent cell count reference ranges are not reported, since discordance with absolute values may lead to misinterpretation of CBC data. Current Interpretive Data was last revised on 2018. Monocyte pct 8.6 % [facility] Comment: Interpretive Data Percent cell count reference ranges are not reported, since discordance with absolute values may lead to misinterpretation of CBC data. Current Interpretive Data was last revised on 2018. Eosinophil pct 0.6 % [facility] Comment: Interpretive Data Percent cell count reference ranges are not reported, since discordance with absolute values may lead to misinterpretation of CBC data. Current Interpretive Data was last revised on 2018. Basophil pct 0.4 % [facility] Comment: Interpretive Data Percent cell count reference ranges are not reported, since discordance with absolute values may lead to misinterpretation of CBC data. Current Interpretive Data was last revised on 2018. Blood 03/09/2025 4:54 AM CDT 03/09/2025 4:54 AM CDT us Chase Keen MD LAB BLOOD ORDERABLES Final Resul t Performing Organization Address City/[facility]/ZIP Co de Phone Number [facility] [address] [facility] [place] [address] * Procalcitonin (03/09/2025 4:54 AM CDT) Procalcitonin 0.25 <=0.25 ng/mL Blood 03/09/2025 4:54 AM CDT 03/09/2025 4:54 AM CDT us Gil Pierce MD LAB BLOOD ORDERABLES Fin al Result [facility] [address] Department [place] [address] * (ABNORMAL) CBC with auto differential (03/09/2025 4:54 AM CDT) Pathologist [facility] [place] WBC 27.27(H) 3.80 - 9.90 K/cumm Hgb 8.5(L) 13.0 - 17.5 g/dL [facility] Hct 27.4(L) 38.9 - 50.3 % [facility] Plt 322 150 - 400 K/cumm [facility] MPV 10.1 9.1 - 12.3 fL [facility] RBC 2.89(L) 4.30 - 5.80 M/cumm [facility] MCV 94.8 81.3 - 96.4 fL [facility] MCH 29.4 27.1 - 33.3 pg [facility] MCHC 31.0(L) 32.3 - 35.7 g/dL [facility] RDW CV 15.8(H) 11.1 - 14.9 % [facility] RDW SD 53.3(H) 35.7 - 48.1 fL [facility] NRBC abs 0.07(H) 0.00 - 0.01 K/cumm [facility] Blood 03/09/2025 4:54 AM CDT 03/09/2025 4:54 AM CDT us Chase Keen MD LAB BLOOD ORDERABLES Final Resul t Performing Organization Address City/[facility]/ZIP Co de Phone Number [facility] [address] Department [place] [address] * (ABNORMAL) CRP (acute phase) (03/09/2025 4:54 AM CDT) [facility] CRP 100.3(H) <=10.0 mg/L Blood 03/09/2025 4:54 AM CDT 03/09/2025 4:54 AM CDT Chase Keen MD LAB BLOOD ORDERABLES Final Resul t Performing Organization Address City/[facility]/ZIP Co de Phone Number [facility] [address] Department [place] [address] * Amylase (03/09/2025 4:54 AM CDT) Amylase 73 30 - 99 Units/L Blood 03/09/2025 4:54 AM CDT 03/09/2025 4:54 AM CDT Gil Pierce MD LAB BLOOD ORDERABLES [facility] al Result [facility] [address] Department [place] [address] * (ABNORMAL) Comprehensive metabolic panel (03/09/2025 4:54 AM CDT) Pathologist [facility] Sodium 136 135 - 145 mmol/L Potassium, pl 4.8 3.3 - 4.9 mmol/L [facility] Chloride 102 97 - 110 mmol/L [facility] CO2 22 22 - 32 mmol/L [facility] Anion gap 12 2 - 15 mmol/L [facility] BUN 33(H) 6 - 25 mg/dL [facility] Creatinine 1.08 0.80 - 1.30 mg/dL [facility] Glucose 119 70 - 199 mg/dL [facility] Comment: Interpretive Data Fasting glucose >/= [...] 2022. Calcium 8.0(L) 8.5 - 10.3 mg/dL [facility] Bilirubin, total 0.3 0.1 - 1.2 mg/dL [facility] Protein, pl 5.7(L) 6.5 - 8.5 g/dL [facility] Albumin 2.6(L) 3.5 - 5.0 g/dL [facility] Alk phos 79 40 - 130 Units/L [facility] ALT 25 7 - 55 Units/L [facility] AST 32 10 - 50 Units/L [facility] Blood 03/09/2025 4:54 AM CDT 03/09/2025 4:54 AM CDT Chase Keen MD LAB BLOOD ORDERABLES Final Resul t Performing Organization Address City/[facility]/ZIP Co de Phone Number [facility] [address] Department [place] [address] * (ABNORMAL) POCT glucose (03/08/2025 9:15 PM CDT) [facility] Glucose, POC 204(H) 70 - 199 mg/dL Comment: For Glucose values <35 mg/dl when Hematocrit is >60 mg/dl,the test may not accurately detect significant hypoglycemia,and testing in the Laboratory should be considered if clinically indicated. POC Performer [phone] [facility] Blood 03/08/2025 9:15 PM CDT 03/08/2025 9:15 PM CDT Chase Keen MD LAB POCT ORDERABLES - DEVICE Fin al Result Performing Organization Address [facility] Co de Phone Number [facility] [address] Department [place] [place] [address] * CT Abdomen W Contrast (03/08/2025 5:36 [...] Larson M.D., MPH Chase Keen MD [facility] CT PROCEDURES Final Result * POCT glucose (03/08/2025 5:01 PM CDT) [facility] Signature Glucose, POC 126 70 - 199 mg/dL Comment: For Glucose values <35 mg/dl when Hematocrit is >60 mg/dl,the test may not accurately detect significant hypoglycemia,and testing in the Laboratory should be considered if clinically indicated. POC Performer [phone] STEPHANIE [facility] Blood 03/08/2025 5:01 PM CDT 03/08/2025 5:01 PM CDT Chase Keen MD LAB POCT ORDERABLES - DEVICE Fin al Result Performing Organization Address [facility] Co de Phone Number STEPHANIE [facility] [address] Department [place] [address] * eGFR (03/08/2025 4:56 PM CDT) eGFR [...] ORDERABLES Final Resul t Performing Organization Address [facility]/ZIP Co de Phone Number STEPHANIE [facility] [address] Department of Laboratories [place], [place] [id number] * (ABNORMAL) Comprehensive metabolic panel (03/08/2025 4:56 PM CDT) Pathologist [facility] Sodium 135 135 - 145 mmol/L Potassium, pl 4.6 3.3 - 4.9 mmol/L [facility] Chloride 102 97 - 110 mmol/L [facility] CO2 21(L) 22 - 32 mmol/L [facility] Anion gap 12 2 - 15 mmol/L [facility] BUN 33(H) 6 - 25 mg/dL [facility] Creatinine 1.11 0.80 - 1.30 mg/dL [facility] Glucose 126 70 - 199 mg/dL [facility] Comment: Interpretive Data Fasting glucose >/= [...] 2022. Calcium 8.0(L) 8.5 - 10.3 mg/dL [facility] Bilirubin, total 0.4 0.1 - 1.2 mg/dL [facility] Protein, pl 5.7(L) 6.5 - 8.5 g/dL [facility] Albumin 2.4(L) 3.5 - 5.0 g/dL [facility] Alk phos 79 40 - 130 Units/L [facility] ALT 24 7 - 55 Units/L [facility] AST 30 10 - 50 Units/L [facility] Blood 03/08/2025 4:56 PM CDT 03/08/2025 5:02 PM CDT us Chase Keen MD LAB BLOOD ORDERABLES Final Resul t [facility] [address] Department [place] [address] * XR Chest 1 View (03/08/2025 [...] CDT 03/08/2025 4:47 PM CDT Narrative STEPHANIE [facility] - 03/14/2025 7:00 AM CDT From a [...] organism identification may be performed using the [employer] Blood Culture Identification panel. This assay detects microbial DNA in a blood culture broth. This assay has been cleared by the [facility] Food and Drug Administration and its performance characteristics have been verified by the [facility]biology [facility]. Interpretive data was last revised on November 09, 2022. Chase Keen MD [facility] MICROBIOLOGY - GENERAL ORDER TASNEME Final Result Performing Organization Address [facility] de Phone Number [facility] [address] [place] [address] * Blood culture Blood (03/08/2025 4:40 PM CDT) Report Final Report: No growth Blood 03/08/2025 4:40 PM CDT 03/08/2025 4:47 PM CDT N[facility]ative [facility] - 03/14/2025 7:00 AM CDT Collection->Peripheral Interpretive [...] organism identification may be performed using the [employer] Blood Culture Identification panel. This assay detects microbial DNA in a blood culture broth. This assay has been cleared by the [place] Food and Drug Administration and its performance characteristics have been verified by the [facility]biology [facility]. Interpretive data was last revised on November 09, 2022. Chase Keen MD [facility] MICROBIOLOGY - GENERAL ORDER TASNEEM Final Result Performing Organization Address [facility] de Phone Number [facility] [address] Department [place] [address] * AL INSJ NON-TUNNELED CENTRAL VENOUS CATH AGE 5 YR/> (03/08/2025 4:28 PM CDT) Narrative Suzette Sanabria PA - 03/08/2025 4:28 PM CDT Suzette Sanabria PA 03/08/2025 4:29 PM PICC Line Insertion Date/Time: 03/08/2025 4:28 PM Performed by: Suzette Sanabria PA Authorized by: Suzette Sanabria PA [facility] Protocol: RN Notified of Procedure: yes Informed consent: Risks, benefits, alternatives discussed and patient/denial management representative/guardian agrees and accepts Patient's stated name/ [...] ur Yellow Yellow Clarity, ur Clear Clear [facility] Specific gravity, ur 1.022 1.003 - 1.030 [facility] pH, urine 5.5 [facility] Comment: Interpretive Data U rine pH is affected by diet, medications, systemic acid-base disturbances, and renal tubular function. pH may affect urinary stone formation. For example, urine pH below 6.0 may help reduce the tendency for calcium phosphate stones and pH greater than 6.0 may reduce the tendency for uric acid stone formation. Source: [facility] Current Interpretive Data was last revised on 2017 Protein, ur ql Trace Negative [facility] Glucose, ur ql 4+(A) Negative [facility] Ketones, ur Negative Negative [facility] Bilirubin, ur Negative Negative [facility] Blood, ur Negative Negative [facility] Urobilinogen, ur <2.0 <2.0 mg/dL [facility] Nitrite, ur Negative Negative [facility] Leukocyte esterase, ur Negative Negative [facility] UA reflex comment Reflex conditions for microscopic UA not met. [facility] Urine 03/08/2025 3:11 PM CDT 03/08/2025 3:11 PM CDT us Chase Keen MD LAB URINE ORDERABLES Final Resul t Performing Organization Address City/[facility]/ZIP Co de Phone Number [facility] [address] Department [place] [place] [address] * POCT glucose (03/08/2025 12:22 PM CDT) Glucose, POC 142 70 - 199 mg/dL Comment: For Glucose values <35 mg/dl when Hematocrit is >60 mg/dl,the test may not accurately detect significant hypoglycemia,and testing in the Laboratory should be considered if clinically indicated. POC Performer [phone] [facility] Blood 03/08/2025 12:2 2 PM CDT 03/08/2025 12:22 PM CDT Chase Keen MD LAB POCT ORDERABLES - DEVICE Fin al Result [facility] [address] Department [place] [address] * (ABNORMAL) Blood smear review (03/08/2025 10:29 AM CDT) [facility] RBC morphology Present(A) Anisocytosis Slight(A) [facility] Poikilocytosis Slight(A) [facility] Elliptocytes 3-7/HPF(A) [facility] Platelet estimate Adequate [facility] Morphology scrn See Comment [facility] Comment:PLT: Platelet morpho logy normal Blood 03/08/2025 10:2 9 AM CDT 03/08/2025 10:37 AM CDT us Chase Keen MD LAB BLOOD ORDERABLES Final Resul t [facility] [address] Department [place] [address] * (ABNORMAL) Differential, auto (03/08/2025 10:29 AM CDT) Pathologist [facility] Neutrophil abs 25.51(H) 1.50 - 6.50 K/cumm Imm gran abs 0.84(H) 0.00 - 0.10 K/cumm [facility] Lymphocyte abs 2.46 0.80 - 3.30 K/cumm [facility] Monocyte abs 2.43(H) 0.20 - 0.80 K/cumm [facility] Eosinophil abs 0.09 0.00 - 0.50 K/cumm [facility] Basophil abs 0.11(H) 0.00 - 0.10 K/cumm [facility] Neutrophil pct 81.2 % [facility] Comment: Interpretive Data Percent cell count reference ranges are not reported, since discordance with absolute values may lead to misinterpretation of CBC data. Current Interpretive Data was last revised on 2018. Imm gran pct 2.7 % [facility] Comment: Interpretive Data Percent cell count reference ranges are not reported, since discordance with absolute values may lead to misinterpretation of CBC data. Current Interpretive Data was last revised on 2018. Lymphocyte pct 7.8 % [facility] Comment: Interpretive Data Percent cell count reference ranges are not reported, since discordance with absolute values may lead to misinterpretation of CBC data. Current Interpretive Data was last revised on 2018. Monocyte pct 7.7 % [facility] Comment: Interpretive Data Percent cell count reference ranges are not reported, since discordance with absolute values may lead to misinterpretation of CBC data. Current Interpretive Data was last revised on 2018. Eosinophil pct 0.3 % [facility] Comment: Interpretive Data Percent cell count reference ranges are not reported, since discordance with absolute values may lead to misinterpretation of CBC data. Current Interpretive Data was last revised on 2018. Basophil pct 0.3 % [facility] Comment: Interpretive Data Percent cell count reference ranges are not reported, since discordance with absolute values may lead to misinterpretation of CBC data. Current Interpretive Data was last revised on 2018. Blood 03/08/2025 10:2 9 AM CDT 03/08/2025 10:37 AM CDT us Chase Keen MD LAB BLOOD ORDERABLES Final Resul t [facility] [address] Department [place] [address] * (ABNORMAL) CBC with auto differential (03/08/2025 10:29 AM CDT) WBC 31.44(H) 3.80 - 9.90 K/cumm Hgb 9.5(L) 13.0 - 17.5 g/dL [facility] Hct 30.6(L) 38.9 - 50.3 % [facility] Plt 283 150 - 400 K/cumm [facility] MPV 10.0 9.1 - 12.3 fL [facility] RBC 3.28(L) 4.30 - 5.80 M/cumm [facility] MCV 93.3 81.3 - 96.4 fL [facility] MCH 29.0 27.1 - 33.3 pg [facility] MCHC 31.0(L) 32.3 - 35.7 g/dL [facility] RDW CV 15.8(H) 11.1 - 14.9 % [facility] RDW SD 53.2(H) 35.7 - 48.1 fL [facility] NRBC abs 0.03(H) 0.00 - 0.01 K/cumm [facility] Morphologic Screen Results confirmed by manual morphology review. [facility] Blood 03/08/2025 10:2 9 AM CDT 03/08/2025 10:37 AM CDT Cahse Keen MD LAB BLOOD ORDERABLES Edited Resu lt - Final Performing Organization Address [facility] Co de Phone Number [facility] [address] Department [place] [place] [address] * POCT glucose (03/08/2025 6:12 AM CDT) Glucose, POC 155 70 - 199 mg/dL Comment: For Glucose values <35 mg/dl when Hematocrit is >60 mg/dl,the test may not accurately detect significant hypoglycemia,and testing in the Laboratory should be considered if clinically indicated. POC Performer [phone] [facility] Blood 03/08/2025 6:12 AM CDT 03/08/2025 6:12 AM CDT Result [facility] Chase Keen MD LAB POCT ORDERABLES - DEVICE Fin al Result Performing Organization Address [facility] de Phone Number [facility] [address] [facility] [place] [employer] [place] [address] * POCT glucose (03/07/2025 9:08 PM CDT) Glucose, POC 110 70 - 199 mg/dL Comment: For Glucose values <35 mg/dl when Hematocrit is >60 mg/dl,the test may not accurately detect significant hypoglycemia,and testing in the Laboratory should be considered if clinically indicated. POC Performer [phone] [facility] Blood 03/07/2025 9:08 PM CDT 03/07/2025 9:08 PM CDT Chase Keen MD LAB POCT ORDERABLES - DEVICE Fin al Result Performing Organization Address [facility] Co de Phone Number STEPHANIE [facility] [address] [facility] [place] [address] * Lactate (03/07/2025 8:19 PM CDT) Lactate 1.7 0.7 - 2.0 mmol/L Blood 03/07/2025 8:19 PM CDT 03/07/2025 8:23 PM CDT Chase Keen MD LAB BLOOD ORDERABLES Final Resul t Performing Organization Address [facility] de Phone Number STEPHANIE [facility] [address] Department [place] [address] * XR Kub (03/07/2025 7:17 PM CDT) [...] wires at the superior margin of the [id number]. Calcified gallstone projecting over the expected region [...] wires at the superior margin of the [id number]. Calcified gallstone projecting over the expected region [...] be considered if clinically indicated. POC Performer [phone] [facility] Blood 03/07/2025 5:05 PM CDT 03/07/2025 5:05 PM CDT Chase Keen MD LAB POCT ORDERABLES - DEVICE Fin al Result [facility] [address] Department [place] [address] * (ABNORMAL) POCT glucose (03/07/2025 12:06 PM CDT) Glucose, POC 201(H) 70 - 199 mg/dL Comment: For Glucose values <35 mg/dl when Hematocrit is >60 mg/dl,the test may not accurately detect significant hypoglycemia,and testing in the Laboratory should be considered if clinically indicated. POC Performer [phone] [facility] Blood 03/07/2025 12:0 6 PM CDT 03/07/2025 12:06 PM CDT Chase Keen MD LAB POCT ORDERABLES - DEVICE Fin al Result Performing Organization Address [facility] Co de Phone Number [facility] [address] [facility] [place] [address] * (ABNORMAL) Hemoglobin and hematocrit (03/07/2025 9:28 AM CDT) Hgb 9.3(L) 13.0 - 17.5 g/dL Hct 29.3(L) 38.9 - 50.3 % [facility] Blood 03/07/2025 9:28 AM CDT 03/07/2025 9:35 AM CDT Maryjo Deshpande MD LAB BLOOD ORDERABLES Final R esult Performing Organization Address [facility] Co de Phone Number [facility] [address] [facility] [place] [address] * POCT glucose (03/07/2025 6:28 AM CDT) Glucose, POC 147 70 - 199 mg/dL Comment: For Glucose values <35 mg/dl when Hematocrit is >60 mg/dl,the test may not accurately detect significant hypoglycemia,and testing in the Laboratory should be considered if clinically indicated. POC Performer [phone] [facility] Blood 03/07/2025 6:28 AM CDT 03/07/2025 6:28 AM CDT Chase Keen MD LAB POCT ORDERABLES - DEVICE Fin al Result Performing Organization Address [facility] Co de Phone Number [facility] [address] [facility] [place] [address] * (ABNORMAL) Hemoglobin and hematocrit (03/07/2025 12:22 AM CDT) Hgb 8.5(L) 13.0 - 17.5 g/dL Hct 26.7(L) 38.9 - 50.3 % [facility] Blood 03/07/2025 12:2 2 AM CDT 03/07/2025 1:02 AM CDT Maryjo Deshpande MD LAB BLOOD ORDERABLES Final R esult Performing Organization Address [facility] Co de Phone Number [facility] [address] Department of [employer] [place], [place] [id number] * POCT glucose (03/06/2025 9:27 PM CDT) Glucose, POC 135 70 - 199 mg/dL Comment: For Glucose values <35 mg/dl when Hematocrit is >60 mg/dl,the test may not accurately detect significant hypoglycemia,and testing in the Laboratory should be considered if clinically indicated. POC Performer [phone] [facility] Blood 03/06/2025 9:27 PM CDT 03/06/2025 9:27 PM CDT Result [facility] Chase Keen MD LAB POCT ORDERABLES - DEVICE Fin al Result Performing Organization Address [facility] de Phone Number [facility] [address] [facility] [place] [address] * POCT glucose (03/06/2025 5:15 PM CDT) Glucose, POC 174 70 - 199 mg/dL Comment: For Glucose values <35 mg/dl when Hematocrit is >60 mg/dl,the test may not accurately detect significant hypoglycemia,and testing in the Laboratory should be considered if clinically indicated. POC Performer [phone] [facility] Blood 03/06/2025 5:15 PM CDT 03/06/2025 5:15 PM CDT Chase Keen MD LAB POCT ORDERABLES - DEVICE Fin al Result Performing Organization Address [facility]/ZIP Co de Phone Number [facility] [address] Department [place] [address] * (ABNORMAL) Hemoglobin and hematocrit (03/06/2025 4:55 PM CDT) Hgb 8.7(L) 13.0 - 17.5 g/dL Hct 28.2(L) 38.9 - 50.3 % [facility] Blood 03/06/2025 4:55 PM CDT 03/06/2025 5:10 PM CDT us Maryjo Deshpande MD LAB BLOOD ORDERABLES Final R esult Performing Organization Address [facility] Co de Phone Number [facility] [address] Department [place] [address] * US Vein Duplex Upper Extremity Right [...] * POCT glucose (03/06/2025 1:15 PM CDT) [facility] Glucose, POC 168 70 - 199 mg/dL Comment: For Glucose values <35 mg/dl when Hematocrit is >60 mg/dl,the test may not accurately detect significant hypoglycemia,and testing in the Laboratory should be considered if clinically indicated. POC Performer [phone] [facility] Blood 03/06/2025 1:15 PM CDT 03/06/2025 1:15 PM CDT Chase Keen MD LAB POCT ORDERABLES - DEVICE Fin al Result STEPHANIE [facility] [address] Department [place] [address] * Iron profile - Add on lab test (03/06/2025 10:52 AM CDT) [facility] Acceptable Yes Blood 03/06/2025 10:5 2 AM CDT 03/06/2025 10:52 AM CDT Narrative [facility] - 03/06/2025 10:52 AM CDT Name of Test->Iron profile us Balbina Mac NP LAB BLOOD ORDERABLES Fi nal Result [facility] [address] [place] [address] * (ABNORMAL) Hemoglobin and hematocrit (03/06/2025 10:11 AM CDT) [facility] Hgb 8.8(L) 13.0 - 17.5 g/dL Hct 28.6(L) 38.9 - 50.3 % [facility] Blood 03/06/2025 10:1 1 AM CDT 03/06/2025 10:27 AM CDT Maryjo Deshpande MD LAB BLOOD ORDERABLES Final R esult [facility] [address] Department [place] [address] * POCT glucose (03/06/2025 6:29 AM CDT) [facility] Glucose, POC 123 70 - 199 mg/dL Comment: For Glucose values <35 mg/dl when Hematocrit is >60 mg/dl,the test may not accurately detect significant hypoglycemia,and testing in the Laboratory should be considered if clinically indicated. POC Performer [phone] [facility] Blood 03/06/2025 6:29 AM CDT 03/06/2025 6:29 AM CDT us Chase Halasa MD LAB POCT ORDERABLES - DEVICE Fin al Result Performing Organization Address [facility] Co de Phone Number [facility] [address] [facility] [place] [address] * (ABNORMAL) Hemoglobin and hematocrit (03/06/2025 12:26 AM CDT) Hgb 8.1(L) 13.0 - 17.5 g/dL Hct 25.6(L) 38.9 - 50.3 % [facility] Blood 03/06/2025 12:2 6 AM CDT 03/06/2025 12:43 AM CDT Maryjo Deshpande MD LAB BLOOD ORDERABLES Final R esult Performing Organization Address [facility] Co de Phone Number [facility] [address] [facility] [employer] [place], [place] [id number] * POCT glucose (03/05/2025 8:39 PM CDT) Glucose, POC 192 70 - 199 mg/dL Comment: For Glucose values <35 mg/dl when Hematocrit is >60 mg/dl,the test may not accurately detect significant hypoglycemia,and testing in the Laboratory should be considered if clinically indicated. POC Performer [phone] [facility] Blood 03/05/2025 8:39 PM CDT 03/05/2025 8:39 PM CDT Chase Keen MD LAB POCT ORDERABLES - DEVICE Fin al Result Performing Organization Address [facility] Co de Phone Number [facility] [address] [facility] [employer] [place], [place] [id number] * POCT glucose (03/05/2025 4:50 PM CDT) Glucose, POC 147 70 - 199 mg/dL Comment: For Glucose values <35 mg/dl when Hematocrit is >60 mg/dl,the test may not accurately detect significant hypoglycemia,and testing in the Laboratory should be considered if clinically indicated. POC Performer [id number] [facility] Blood 03/05/2025 4:50 PM CDT 03/05/2025 4:50 PM CDT Chase Keen MD LAB POCT ORDERABLES - DEVICE Fin al Result Performing Organization Address [facility] Co de Phone Number [facility] [address] [facility] [employer] [place], [place] [phone] * (ABNORMAL) Hemoglobin and hematocrit (03/05/2025 4:38 PM CDT) Hgb 8.6(L) 13.0 - 17.5 g/dL Hct 27.8(L) 38.9 - 50.3 % [facility] Blood 03/05/2025 4:38 PM CDT 03/05/2025 4:45 PM CDT Maryjo Deshpande MD LAB BLOOD ORDERABLES Final R esult Performing Organization Address [facility] Co de Phone Number [facility] [address] [facility] [employer] [place], [place] [phone] * POCT glucose (03/05/2025 12:32 PM CDT) Glucose, POC 164 70 - 199 mg/dL Comment: For Glucose values <35 mg/dl when Hematocrit is >60 mg/dl,the test may not accurately detect significant hypoglycemia,and testing in the Laboratory should be considered if clinically indicated. POC Performer [id number] [facility] Blood 03/05/2025 12:3 2 PM CDT 03/05/2025 12:32 PM CDT Chase Keen MD LAB POCT ORDERABLES - DEVICE Fin al Result Performing Organization Address City/[facility]/ZIP Co de Phone Number [facility] [address] [facility] [employer] [place], [place] [phone] * POCT glucose (03/05/2025 8:46 AM CDT) Glucose, POC 118 70 - 199 mg/dL Comment: For Glucose values <35 mg/dl when Hematocrit is >60 mg/dl,the test may not accurately detect significant hypoglycemia,and testing in the Laboratory should be considered if clinically indicated. POC Performer [id number] [facility] Blood 03/05/2025 8:46 AM CDT 03/05/2025 8:46 AM CDT us Chase Keen MD LAB POCT ORDERABLES - DEVICE Fin al Result Performing Organization Address City/[facility]/ZIP Co de Phone Number [facility] [address] [facility] [employer] [place], [place] [phone] * (ABNORMAL) Hemoglobin and hematocrit (03/05/2025 8:45 AM CDT) Hgb 8.7(L) 13.0 - 17.5 g/dL Hct 28.0(L) 38.9 - 50.3 % [facility] Blood 03/05/2025 8:45 AM CDT 03/05/2025 9:06 AM CDT us Maryjo Deshpande MD LAB BLOOD ORDERABLES Final R esult Performing Organization Address City/[facility]/ZIP Co de Phone Number [facility] [address] Department [place] [place] [address] * POCT glucose (03/05/2025 6:39 AM CDT) Glucose, POC 136 70 - 199 mg/dL Comment: For Glucose values <35 mg/dl when Hematocrit is >60 mg/dl,the test may not accurately detect significant hypoglycemia,and testing in the Laboratory should be considered if clinically indicated. POC Performer [id number] [facility] Blood 03/05/2025 6:39 AM CDT 03/05/2025 6:39 AM CDT us Cathy Bear MD LAB POCT ORDERABLES - DEVICE Fi nal Result Performing Organization Address [facility] Co de Phone Number [facility] [address] [place] [address] * eGFR (03/05/2025 1:12 AM CDT) eGFR [...] ORDERABLES Final R esult Performing Organization Address [facility] Co de Phone Number STEPHANIE [facility] [address] Department [employer] [place], [place] [phone] * (ABNORMAL) Iron profile w/ IBC (03/05/2025 1:12 AM CDT) Iron 11(L) 50 - 150 mcg/dL TIBC 165(L) 250 - 400 mcg/dL [facility] Transferrin saturation 7(L) 20 - 50 % [facility] Blood 03/05/2025 1:12 AM CDT 03/05/2025 2:07 AM CDT us Chase Keen MD LAB BLOOD ORDERABLES Final Resul t Performing Organization Address [facility] de Phone Number [facility] [address] [employer] [place], [place] [phone] * (ABNORMAL) CBC without differential (03/05/2025 1:12 AM CDT) WBC 23.20(H) 3.80 - 9.90 K/cumm Hgb 8.7(L) 13.0 - 17.5 g/dL [facility] Hct 27.7(L) 38.9 - 50.3 % [facility] Plt 365 150 - 400 K/cumm [facility] MPV 11.3 9.1 - 12.3 fL [facility] RBC 2.95(L) 4.30 - 5.80 M/cumm [facility] MCV 93.9 81.3 - 96.4 fL [facility] MCH 29.5 27.1 - 33.3 pg [facility] MCHC 31.4(L) 32.3 - 35.7 g/dL [facility] RDW CV 15.0(H) 11.1 - 14.9 % [facility] RDW SD 50.6(H) 35.7 - 48.1 fL [facility] NRBC abs 0.00 0.00 - 0.01 K/cumm [facility] Blood 03/05/2025 1:12 AM CDT 03/05/2025 2:07 AM CDT us Maryjo Deshpande MD LAB BLOOD ORDERABLES Final R esult Performing Organization Address City/[facility]/ZIP Co de Phone Number [facility] [address] [employer] [place], [place] [phone] * Magnesium (03/05/2025 1:12 AM CDT) Magnesium 2.0 1.4 - 2.5 mg/dL Blood 03/05/2025 1:12 AM CDT 03/05/2025 2:07 AM CDT us Maryjo Deshpande MD LAB BLOOD ORDERABLES Final R esult [facility] [address] Department [place] [address] * (ABNORMAL) Renal function panel (03/05/2025 1:12 AM CDT) Sodium 138 135 - 145 mmol/L Potassium, pl 4.2 3.3 - 4.9 mmol/L [facility] Chloride 103 97 - 110 mmol/L [facility] CO2 21(L) 22 - 32 mmol/L [facility] Anion gap 14 2 - 15 mmol/L [facility] BUN 53(H) 6 - 25 mg/dL [facility] Creatinine 1.08 0.80 - 1.30 mg/dL [facility] Glucose 146 70 - 199 mg/dL [facility] Comment: Interpretive Data Fasting glucose >/= [...] 2022. Calcium 7.9(L) 8.5 - 10.3 mg/dL [facility] Phosphorus, pl 3.0 2.3 - 4.5 mg/dL [facility] Albumin 2.7(L) 3.5 - 5.0 g/dL [facility] Blood 03/05/2025 1:12 AM CDT 03/05/2025 2:07 AM CDT Maryjo Deshpande MD LAB BLOOD ORDERABLES Final R esult Performing Organization Address [facility] Co de Phone Number [facility] [address] [facility] [employer] [place], [place] [phone] * POCT glucose (03/04/2025 9:32 PM CDT) Glucose, POC 148 70 - 199 mg/dL Comment: For Glucose values <35 mg/dl when Hematocrit is >60 mg/dl,the test may not accurately detect significant hypoglycemia,and testing in the Laboratory should be considered if clinically indicated. POC Performer [id number] [facility] Blood 03/04/2025 9:32 PM CDT 03/04/2025 9:32 PM CDT Cathy Bear MD LAB POCT ORDERABLES - DEVICE Fi nal Result Performing Organization Address [facility] de Phone Number [facility] [address] [facility] [place] [address] * POCT glucose (03/04/2025 6:17 PM CDT) Glucose, POC 150 70 - 199 mg/dL Comment: For Glucose values <35 mg/dl when Hematocrit is >60 mg/dl,the test may not accurately detect significant hypoglycemia,and testing in the Laboratory should be considered if clinically indicated. POC Performer [id number] [facility] Blood 03/04/2025 6:17 PM CDT 03/04/2025 6:17 PM CDT Cathy Bear MD LAB POCT ORDERABLES - DEVICE Fi nal Result Performing Organization Address [facility] Co de Phone Number [facility] [address] [facility] [employer] [place], [place] [phone] * Sepsis Lactate w/ Reflex (03/04/2025 12:56 PM CDT) Sepsis Lactate 1.7 0.7 - 2.0 mmol/L Blood 03/04/2025 12:5 6 PM CDT 03/04/2025 1:08 PM CDT Suzette MCGUIRE LAB BLOOD ORDERABLES Final Result Performing Organization Address [facility] Co de Phone Number STEPHANIE [facility] [address] Department of [employer] [place], [place] [phone] * (ABNORMAL) eGFR (03/04/2025 12:56 PM CDT) [...] BLOOD ORDERABLES Final Result Performing Organization Address City/[facility]/ZIP Co de Phone Number STEPHANIE [facility] [address] Department [employer] [place], [place] [phone] * (ABNORMAL) Hemoglobin and hematocrit (03/04/2025 12:56 PM CDT) Hgb 8.9(L) 13.0 - 17.5 g/dL Hct 28.4(L) 38.9 - 50.3 % [facility] Blood 03/04/2025 12:5 6 PM CDT 03/04/2025 1:15 PM CDT Maryjo Deshpande MD LAB BLOOD ORDERABLES Final R esult [facility] [address] Department [place] [address] * (ABNORMAL) Comprehensive metabolic panel (03/04/2025 12:56 PM CDT) Sodium 137 135 - 145 mmol/L Potassium, pl 4.2 3.3 - 4.9 mmol/L [facility] Chloride 103 97 - 110 mmol/L [facility] CO2 20(L) 22 - 32 mmol/L [facility] Anion gap 14 2 - 15 mmol/L [facility] BUN 65(H) 6 - 25 mg/dL [facility] Creatinine 1.36(H) 0.80 - 1.30 mg/dL [facility] Glucose 213(H) 70 - 199 mg/dL [facility] Comment: Interpretive Data Fasting glucose >/= [...] 2022. Calcium 8.0(L) 8.5 - 10.3 mg/dL [facility] Bilirubin, total 0.5 0.1 - 1.2 mg/dL [facility] Protein, pl 6.0(L) 6.5 - 8.5 g/dL [facility] Albumin 2.7(L) 3.5 - 5.0 g/dL [facility] Alk phos 80 40 - 130 Units/L [facility] ALT 31 7 - 55 Units/L [facility] AST 42 10 - 50 Units/L [facility] Blood 03/04/2025 12:5 6 PM CDT 03/04/2025 1:12 PM CDT us Suzette MCGUIRE LAB BLOOD ORDERABLES Final Result Performing Organization Address City/[facility]/ZIP Co de Phone Number [facility] [address] [facility] [employer] [place], [place] [phone] * (ABNORMAL) POCT glucose (03/04/2025 12:32 PM CDT) Glucose, POC 243(H) 70 - 199 mg/dL Comment: For Glucose values <35 mg/dl when Hematocrit is >60 mg/dl,the test may not accurately detect significant hypoglycemia,and testing in the Laboratory should be considered if clinically indicated. POC Performer [id number] [facility] Blood 03/04/2025 12:3 2 PM CDT 03/04/2025 12:32 PM CDT us Cathy Bear MD LAB POCT ORDERABLES - DEVICE Fi nal Result Performing Organization Address [facility] Co de Phone Number [facility] [address] [facility] [employer] [place], [place] [phone] * (ABNORMAL) Hemoglobin and hematocrit (03/04/2025 7:54 AM CDT) [facility] Hgb 7.7(L) 13.0 - 17.5 g/dL Hct 25.4(L) 38.9 - 50.3 % [facility] Blood 03/04/2025 7:54 AM CDT 03/04/2025 8:02 AM CDT us Maryjo Deshpande MD LAB BLOOD ORDERABLES Final R esult Performing Organization Address City/[facility]/ZIP Co de Phone Number [facility] [address] Department [employer] [place], [place] [phone] * POCT glucose (03/04/2025 7:53 AM CDT) Glucose, POC 131 70 - 199 mg/dL Comment: For Glucose values <35 mg/dl when Hematocrit is >60 mg/dl,the test may not accurately detect significant hypoglycemia,and testing in the Laboratory should be considered if clinically indicated. POC Performer [id number] [facility] Blood 03/04/2025 7:53 AM CDT 03/04/2025 7:53 AM CDT Maryjo Deshpande MD LAB POCT ORDERABLES - DEVICE Final Result Performing Organization Address [facility] de Phone Number [facility] [address] [place] [address] * POCT glucose (03/04/2025 4:30 AM CDT) [facility] Glucose, POC 131 70 - 199 mg/dL Comment: For Glucose values <35 mg/dl when Hematocrit is >60 mg/dl,the test may not accurately detect significant hypoglycemia,and testing in the Laboratory should be considered if clinically indicated. POC Performer [id number] [facility] Blood 03/04/2025 4:30 AM CDT 03/04/2025 4:30 AM CDT Maryjo Deshpande MD LAB POCT ORDERABLES - DEVICE Final Result Performing Organization Address [facility] Co de Phone Number [facility] [address] [facility] [employer] [address] * (ABNORMAL) eGFR (03/04/2025 12:55 AM CDT) Pathologist [facility] eGFR 48(L) >=60 mL/min/1. 73 m2 Comment: [...] MD LAB BLOOD ORDERABLES Final R esult [facility] [address] Department [place] [address] * (ABNORMAL) CBC without differential (03/04/2025 12:55 AM CDT) WBC 14.59(H) 3.80 - 9.90 K/cumm Hgb 7.5(L) 13.0 - 17.5 g/dL [facility] Hct 23.9(L) 38.9 - 50.3 % [facility] Plt 317 150 - 400 K/cumm [facility] MPV 11.4 9.1 - 12.3 fL [facility] RBC 2.56(L) 4.30 - 5.80 M/cumm [facility] MCV 93.4 81.3 - 96.4 fL [facility] MCH 29.3 27.1 - 33.3 pg [facility] MCHC 31.4(L) 32.3 - 35.7 g/dL [facility] RDW CV 14.8 11.1 - 14.9 % [facility] RDW SD 50.7(H) 35.7 - 48.1 fL [facility] NRBC abs 0.02(H) 0.00 - 0.01 K/cumm [facility] Blood 03/04/2025 12:5 5 AM CDT 03/04/2025 1:01 AM CDT Maryjo Deshpande MD LAB BLOOD ORDERABLES Final R esult Performing Organization Address [facility] Co de Phone Number [facility] [address] [facility] [address] * Phosphorus (03/04/2025 12:55 AM CDT) Phosphorus, pl 2.5 2.3 - 4.5 mg/dL Blood 03/04/2025 12:5 5 AM CDT 03/04/2025 1:01 AM CDT Maryjo Deshpande MD LAB BLOOD ORDERABLES Final R esult Performing Organization Address [facility] Co de Phone Number [facility] [address] [facility] [place] [address] * Magnesium (03/04/2025 12:55 AM CDT) Magnesium 2.3 1.4 - 2.5 mg/dL Blood 03/04/2025 12:5 5 AM CDT 03/04/2025 1:01 AM CDT Maryjo Deshpande MD LAB BLOOD ORDERABLES Final R esult Performing Organization Address [facility] Co de Phone Number [facility] [address] [facility] [place] [address] * Bilirubin, direct (03/04/2025 12:55 AM CDT) Bilirubin, direct 0.2 0.1 - 0.3 mg/dL Blood 03/04/2025 12:5 5 AM CDT 03/04/2025 1:01 AM CDT us Maryjo Deshpande MD LAB BLOOD ORDERABLES Final R esult [facility] [address] Department [place] [address] * (ABNORMAL) Comprehensive metabolic panel (03/04/2025 12:55 AM CDT) Sodium 139 135 - 145 mmol/L Potassium, pl 3.5 3.3 - 4.9 mmol/L [facility] Chloride 104 97 - 110 mmol/L [facility] CO2 21(L) 22 - 32 mmol/L [facility] Anion gap 14 2 - 15 mmol/L [facility] BUN 76(H) 6 - 25 mg/dL [facility] Creatinine 1.53(H) 0.80 - 1.30 mg/dL [facility] Glucose 122 70 - 199 mg/dL [facility] Comment: Interpretive Data Fasting glucose >/= [...] 2022. Calcium 7.6(L) 8.5 - 10.3 mg/dL [facility] Bilirubin, total 0.5 0.1 - 1.2 mg/dL [facility] Protein, pl 5.8(L) 6.5 - 8.5 g/dL [facility] Albumin 2.7(L) 3.5 - 5.0 g/dL [facility] Alk phos 71 40 - 130 Units/L [facility] ALT 29 7 - 55 Units/L [facility] AST 52(H) 10 - 50 Units/L [facility] Blood 03/04/2025 12:5 5 AM CDT 03/04/2025 1:01 AM CDT Maryjo Deshpande MD LAB BLOOD ORDERABLES Final R esult Performing Organization Address [facility] Co de Phone Number [facility] [address] Department [place] [place] [address] * POCT glucose (03/04/2025 12:34 AM CDT) Glucose, POC 127 70 - 199 mg/dL Comment: For Glucose values <35 mg/dl when Hematocrit is >60 mg/dl,the test may not accurately detect significant hypoglycemia,and testing in the Laboratory should be considered if clinically indicated. POC Performer [id number] [facility] Blood 03/04/2025 12:3 4 AM CDT 03/04/2025 12:34 AM CDT Maryjo Deshpande MD LAB POCT ORDERABLES - DEVICE Final Result Performing Organization Address [facility] de Phone Number [facility] [address] [place] [address] * POCT glucose (03/03/2025 8:29 PM CDT) [facility] Glucose, POC 155 70 - 199 mg/dL Comment: For Glucose values <35 mg/dl when Hematocrit is >60 mg/dl,the test may not accurately detect significant hypoglycemia,and testing in the Laboratory should be considered if clinically indicated. POC Performer [id number] [facility] Blood 03/03/2025 8:29 PM CDT 03/03/2025 8:29 PM CDT Maryjo Deshpande MD LAB POCT ORDERABLES - DEVICE Final Result Performing Organization Address [facility] Co de Phone Number [facility] [address] [place] [address] * (ABNORMAL) Hemoglobin and hematocrit (03/03/2025 5:29 PM CDT) [facility] Hgb 7.8(L) 13.0 - 17.5 g/dL Hct 25.2(L) 38.9 - 50.3 % [facility] Blood 03/03/2025 5:29 PM CDT 03/03/2025 5:32 PM CDT Maryjo Deshpande MD LAB BLOOD ORDERABLES Final R esult Performing Organization Address [facility] Co de Phone Number [facility] [address] [facility] [employer] [place], [place] [phone] * POCT glucose (03/03/2025 5:15 PM CDT) [facility] Glucose, POC 156 70 - 199 mg/dL Comment: For Glucose values <35 mg/dl when Hematocrit is >60 mg/dl,the test may not accurately detect significant hypoglycemia,and testing in the Laboratory should be considered if clinically indicated. POC Performer [id number] [facility] Blood 03/03/2025 5:15 PM CDT 03/03/2025 5:15 PM CDT Maryjo Deshpande MD LAB POCT ORDERABLES - DEVICE Final Result Performing Organization Address [facility] de Phone Number [facility] [address] [facility] [employer] [place], [place] [phone] * (ABNORMAL) POCT glucose (03/03/2025 12:13 PM CDT) [facility] Glucose, POC 265(H) 70 - 199 mg/dL Comment: For Glucose values <35 mg/dl when Hematocrit is >60 mg/dl,the test may not accurately detect significant hypoglycemia,and testing in the Laboratory should be considered if clinically indicated. POC Performer [id number] [facility] Blood 03/03/2025 12:1 3 PM CDT 03/03/2025 12:13 PM CDT Maryjo Deshpande MD LAB POCT ORDERABLES - DEVICE Final Result Performing Organization Address [facility] Co de Phone Number [facility] [address] [facility] [employer] [place], [place] [phone] * (ABNORMAL) Hemoglobin and hematocrit (03/03/2025 9:10 AM CDT) Hgb 8.0(L) 13.0 - 17.5 g/dL Hct 25.7(L) 38.9 - 50.3 % [facility] Blood 03/03/2025 9:10 AM CDT 03/03/2025 9:25 AM CDT Maryjo Deshpande MD LAB BLOOD ORDERABLES Final R esult Performing Organization Address [facility] Co de Phone Number [facility] [address] Department [employer] [place], [place] [phone] * POCT glucose (03/03/2025 8:05 AM CDT) [facility] Glucose, POC 143 70 - 199 mg/dL Comment: For Glucose values <35 mg/dl when Hematocrit is >60 mg/dl,the test may not accurately detect significant hypoglycemia,and testing in the Laboratory should be considered if clinically indicated. POC Performer [id number] [facility] Blood 03/03/2025 8:05 AM CDT 03/03/2025 8:05 AM CDT Maryjo Deshpande MD LAB POCT ORDERABLES - DEVICE Final Result Performing Organization Address [facility] Co de Phone Number [facility] [address] Department [employer] [place], [place] [phone] * (ABNORMAL) eGFR (03/03/2025 5:13 AM CDT) [facility] eGFR 35(L) >=60 mL/min/1. 73 m2 [...] MD LAB BLOOD ORDERABLES Final R esult [facility] [address] Department [place] [address] * (ABNORMAL) CBC without differential (03/03/2025 5:13 AM CDT) WBC 14.06(H) 3.80 - 9.90 K/cumm Hgb 7.5(L) 13.0 - 17.5 g/dL [facility] Hct 23.6(L) 38.9 - 50.3 % [facility] Plt 296 150 - 400 K/cumm [facility] MPV 12.1 9.1 - 12.3 fL [facility] RBC 2.57(L) 4.30 - 5.80 M/cumm [facility] MCV 91.8 81.3 - 96.4 fL [facility] MCH 29.2 27.1 - 33.3 pg [facility] MCHC 31.8(L) 32.3 - 35.7 g/dL [facility] RDW CV 14.9 11.1 - 14.9 % [facility] RDW SD 49.9(H) 35.7 - 48.1 fL [facility] NRBC abs 0.00 0.00 - 0.01 K/cumm [facility] Blood 03/03/2025 5:13 AM CDT 03/03/2025 5:18 AM CDT Maryjo Deshpande MD LAB BLOOD ORDERABLES Final R esult Performing Organization Address City/[facility]/ZIP Co de Phone Number [facility] [address] [place] [address] * (ABNORMAL) Magnesium (03/03/2025 5:13 AM CDT) Pathologist [facility] Magnesium 2.6(H) 1.4 - 2.5 mg/dL Blood 03/03/2025 5:13 AM CDT 03/03/2025 5:19 AM CDT Maryjo Deshpande MD LAB BLOOD ORDERABLES Final R esult Performing Organization Address City/[facility] Co de Phone Number [facility] [address] Department [place] [address] * (ABNORMAL) Renal function panel (03/03/2025 5:13 AM CDT) Pathologist [facility] Sodium 141 135 - 145 mmol/L Potassium, pl 3.7 3.3 - 4.9 mmol/L [facility] Chloride 104 97 - 110 mmol/L [facility] CO2 21(L) 22 - 32 mmol/L [facility] Anion gap 16(H) 2 - 15 mmol/L [facility] BUN 97(H) 6 - 25 mg/dL [facility] Creatinine 1.98(H) 0.80 - 1.30 mg/dL [facility] Glucose 127 70 - 199 mg/dL [facility] Comment: Interpretive Data Fasting glucose >/= [...] 2022. Calcium 8.1(L) 8.5 - 10.3 mg/dL [facility] Phosphorus, pl 3.6 2.3 - 4.5 mg/dL [facility] Albumin 2.8(L) 3.5 - 5.0 g/dL [facility] Blood 03/03/2025 5:13 AM CDT 03/03/2025 5:19 AM CDT Maryjo Deshpande MD LAB BLOOD ORDERABLES Final R esult Performing Organization Address [facility]/ZIP Co de Phone Number [facility] [address] Department [employer] [place], [place] [phone] * POCT glucose (03/03/2025 5:11 AM CDT) Glucose, POC 135 70 - 199 mg/dL Comment: For Glucose values <35 mg/dl when Hematocrit is >60 mg/dl,the test may not accurately detect significant hypoglycemia,and testing in the Laboratory should be considered if clinically indicated. POC Performer [id number] [facility] Blood 03/03/2025 5:11 AM CDT 03/03/2025 5:11 AM CDT Maryjo Deshpande MD LAB POCT ORDERABLES - DEVICE Final Result Performing Organization Address City/[facility]/ZIP Co de Phone Number [facility] [address] [place] [address] * (ABNORMAL) Hemoglobin and hematocrit (03/02/2025 11:36 PM CDT) Hgb 7.3(L) 13.0 - 17.5 g/dL Hct 22.8(L) 38.9 - 50.3 % [facility] Blood 03/02/2025 11:3 6 PM CDT 03/02/2025 11:44 PM CDT Maryjo Deshpande MD LAB BLOOD ORDERABLES Final R esult Performing Organization Address City/[facility]/ZIP Co de Phone Number [facility] [address] [facility] [employer] [place], [place] [phone] * POCT glucose (03/02/2025 11:35 PM CDT) Glucose, POC 146 70 - 199 mg/dL Comment: For Glucose values <35 mg/dl when Hematocrit is >60 mg/dl,the test may not accurately detect significant hypoglycemia,and testing in the Laboratory should be considered if clinically indicated. POC Performer [id number] [facility] Blood 03/02/2025 11:3 5 PM CDT 03/02/2025 11:35 PM CDT Maryjo Deshpande MD LAB POCT ORDERABLES - DEVICE Final Result Performing Organization Address [facility] Co de Phone Number [facility] [address] [facility] [employer] [place], [place] [phone] * POCT glucose (03/02/2025 7:57 PM CDT) Glucose, POC 189 70 - 199 mg/dL Comment: For Glucose values <35 mg/dl when Hematocrit is >60 mg/dl,the test may not accurately detect significant hypoglycemia,and testing in the Laboratory should be considered if clinically indicated. POC Performer [id number] [facility] Blood 03/02/2025 7:57 PM CDT 03/02/2025 7:57 PM CDT Maryjo Deshpande MD LAB POCT ORDERABLES - DEVICE Final Result Performing Organization Address City/[facility]/ZIP Co de Phone Number [facility] [address] [facility] [employer] [place], [place] [phone] * (ABNORMAL) Hemoglobin and hematocrit (03/02/2025 6:05 PM CDT) Hgb 7.8(L) 13.0 - 17.5 g/dL Hct 25.2(L) 38.9 - 50.3 % [facility] Blood 03/02/2025 6:05 PM CDT 03/02/2025 6:10 PM CDT us Maryjo Deshpande MD LAB BLOOD ORDERABLES Final R esult Performing Organization Address [facility] Co de Phone Number [facility] [address] [facility] [place] [address] * POCT glucose (03/02/2025 5:08 PM CDT) [facility] Signature Glucose, POC 150 70 - 199 mg/dL Comment: For Glucose values <35 mg/dl when Hematocrit is >60 mg/dl,the test may not accurately detect significant hypoglycemia,and testing in the Laboratory should be considered if clinically indicated. POC Performer [id number] [facility] Blood 03/02/2025 5:08 PM CDT 03/02/2025 5:08 PM CDT us Maryjo Deshpande MD LAB POCT ORDERABLES - DEVICE Final Result Performing Organization Address [facility] Co de Phone Number [facility] [address] [facility] [place] [address] * Lactate (03/02/2025 2:26 PM CDT) [facility] Lactate 1.0 0.7 - 2.0 mmol/L Blood 03/02/2025 2:26 PM CDT 03/02/2025 2:31 PM CDT Rehana Shipley DO LAB BLOOD ORDERABLES F inal Result Performing Organization Address City/[facility] Co de Phone Number [facility] [address] Department [place] [address] * (ABNORMAL) Hemoglobin and hematocrit (03/02/2025 2:26 PM CDT) Hgb 7.3(L) 13.0 - 17.5 g/dL Hct 22.8(L) 38.9 - 50.3 % [facility] Blood 03/02/2025 2:26 PM CDT 03/02/2025 2:35 PM CDT us Maryjo Deshpande MD LAB BLOOD ORDERABLES Final R esult [facility] [address] Department [place] [address] * XR Chest 1 View (03/02/2025 2:09 [...] Jones PA Authorized by: Cheng Jones PA [facility] Protocol: RN Notified of Procedure: yes Informed consent: Risks, benefits, alternatives discussed and patient/denial management representative/guardian agrees and accepts Patient's stated name/ [...] be considered if clinically indicated. POC Performer [id number] [facility] Blood 03/02/2025 12:2 5 PM CDT 03/02/2025 12:25 PM CDT us Maryjo Deshpande MD LAB POCT ORDERABLES - DEVICE Final Result Performing Organization Address City/[facility]/ZIP Co de Phone Number [facility] [address] Department of [employer] [place], [place] [phone] * Lactate (03/02/2025 8:33 AM CDT) [facility] Lactate See Comment 0.7 - 2.0 Comment:Test results inaccur ately filed to this patient's record. Test will be credited. Specimen too old to run due to laboratory mechanical error. Recollect requested and RN informed 03/02/2025 09:57:34 CDT [id number] Blood 03/02/2025 8:33 AM CDT 03/02/2025 8:38 AM CDT us Rehana Shipley DO LAB BLOOD ORDERABLES F inal Result Performing Organization Address City/[facility]/ZIP Co de Phone Number [facility] [address] Department [place] [address] * (ABNORMAL) Blood smear review (03/02/2025 8:33 AM CDT) [facility] RBC morphology Present(A) Hypochromasia 3-7/HPF(A) [facility] Anisocytosis Slight(A) [facility] Elliptocytes 3-7/HPF(A) [facility] Platelet estimate Adequate [facility] Blood 03/02/2025 8:33 AM CDT 03/02/2025 8:38 AM CDT Rehana Shipley DO LAB BLOOD ORDERABLES F inal Result Performing Organization Address [facility] Co de Phone Number [facility] [address] Department [place] [address] * (ABNORMAL) eGFR (03/02/2025 8:33 AM CDT) [...] ORDERABLES F inal Result Performing Organization Address [facility]/ZIP Co de Phone Number [facility] [address] Department of [employer] [place], [place] [phone] * (ABNORMAL) Differential, auto (03/02/2025 8:33 AM CDT) Neutrophil abs 12.41(H) 1.50 - 6.50 K/cumm Imm gran abs 0.18(H) 0.00 - 0.10 K/cumm [facility] Lymphocyte abs 1.79 0.80 - 3.30 K/cumm [facility] Monocyte abs 1.70(H) 0.20 - 0.80 K/cumm [facility] Eosinophil abs 0.03 0.00 - 0.50 K/cumm [facility] Basophil abs 0.04 0.00 - 0.10 K/cumm [facility] Neutrophil pct 76.9 % [facility] Comment: Interpretive Data Percent cell count reference ranges are not reported, since discordance with absolute values may lead to misinterpretation of CBC data. Current Interpretive Data was last revised on 2018. Imm gran pct 1.1 % [facility] Comment: Interpretive Data Percent cell count reference ranges are not reported, since discordance with absolute values may lead to misinterpretation of CBC data. Current Interpretive Data was last revised on 2018. Lymphocyte pct 11.1 % [facility] Comment: Interpretive Data Percent cell count reference ranges are not reported, since discordance with absolute values may lead to misinterpretation of CBC data. Current Interpretive Data was last revised on 2018. Monocyte pct 10.5 % [facility] Comment: Interpretive Data Percent cell count reference ranges are not reported, since discordance with absolute values may lead to misinterpretation of CBC data. Current Interpretive Data was last revised on 2018. Eosinophil pct 0.2 % [facility] Comment: Interpretive Data Percent cell count reference ranges are not reported, since discordance with absolute values may lead to misinterpretation of CBC data. Current Interpretive Data was last revised on 2018. Basophil pct 0.2 % [facility] Comment: Interpretive Data Percent cell count reference ranges are not reported, since discordance with absolute values may lead to misinterpretation of CBC data. Current Interpretive Data was last revised on 2018. Blood 03/02/2025 8:33 AM CDT 03/02/2025 8:38 AM CDT us Rehana Shipley DO LAB BLOOD ORDERABLES F inal Result [facility] [address] Department [place] [address] * (ABNORMAL) CBC with auto differential (03/02/2025 8:33 AM CDT) [facility] WBC 16.15(H) 3.80 - 9.90 K/cumm Hgb 7.7(L) 13.0 - 17.5 g/dL [facility] Hct 25.1(L) 38.9 - 50.3 % [facility] Plt 240 150 - 400 K/cumm [facility] Comment:Clumped platelets. P latelet estimate Adequate. Per Gayatri Arshad RN, Platelet confirmation doesn't need to be ordered. MPV 12.9(H) 9.1 - 12.3 fL [facility] RBC 2.72(L) 4.30 - 5.80 M/cumm [facility] MCV 92.3 81.3 - 96.4 fL [facility] MCH 28.3 27.1 - 33.3 pg [facility] MCHC 30.7(L) 32.3 - 35.7 g/dL [facility] RDW CV 15.0(H) 11.1 - 14.9 % [facility] RDW SD 50.1(H) 35.7 - 48.1 fL [facility] NRBC abs 0.00 0.00 - 0.01 K/cumm [facility] Blood 03/02/2025 8:33 AM CDT 03/02/2025 8:38 AM CDT us Rehana Shipley DO LAB BLOOD ORDERABLES F inal Result [facility] [address] Department [place] [address] * (ABNORMAL) Protime-INR (03/02/2025 8:33 AM CDT) [facility] PT 17.8(H) 9.7 - 13.0 sec INR 1.63(H) 0.90 - 1.20 [facility] Comment: Interpretive data Oral anticoagulant therapeutic ranges: Venous thromboembolism prophylaxis or treatment: 2.0-3.0 CARDIOLOGY Standard range: 2.0-3.0 High-intensity range: 2.5-3.5 Refer to indication-specific guidelines for appropriate target ranges for prosthetic heart valve replacement. Current interpretive data was last revised on 2019. Blood 03/02/2025 8:33 AM CDT 03/02/2025 8:37 AM CDT Rehana Shipley LAB BLOOD ORDERABLES F inal Result Performing Organization Address [facility] Co de Phone Number [facility] [address] [facility] [employer] [place], [place] [phone] * (ABNORMAL) Magnesium (03/02/2025 8:33 AM CDT) Pathologist [facility] Magnesium 2.6(H) 1.4 - 2.5 mg/dL Blood 03/02/2025 8:33 AM CDT 03/02/2025 8:37 AM CDT [facility] LAB BLOOD ORDERABLES F inal Result Performing Organization Address [facility] de Phone Number [facility] [address] [facility] [place] [place] [address] * (ABNORMAL) Blood gas, venous (03/02/2025 8:33 AM CDT) pH, Venous 7.40 7.32 - 7.43 PCO2, Venous 33(L) 40 - 50 mmHg [facility] PO2, Venous 163 mmHg [facility] Comment: Interpretive Data No Reference Range Established Current Interpretive Data was last revised on 2018. HCO3 Venous, Calculated 20 20 - 30 mmol/L [facility] BE, venous -4 mmol/L [facility] Comment: nterpretive Data No Reference Range Established Current Interpretive Data was last revised on 2018. Blood 03/02/2025 8:33 AM CDT 03/02/2025 8:38 AM CDT us Rehana Kimbrough Violetta DO LAB BLOOD ORDERABLES F inal Result [facility] [address] Department [place] [address] * (ABNORMAL) Comprehensive metabolic panel (03/02/2025 8:33 AM CDT) Sodium 140 135 - 145 mmol/L Potassium, pl 3.9 3.3 - 4.9 mmol/L [facility] Chloride 104 97 - 110 mmol/L [facility] CO2 17(L) 22 - 32 mmol/L [facility] Anion gap 19(H) 2 - 15 mmol/L [facility] BUN 106(H) 6 - 25 mg/dL [facility] Creatinine 2.38(H) 0.80 - 1.30 mg/dL [facility] Glucose 98 70 - 199 mg/dL [facility] Comment: Interpretive Data Fasting glucose >/= [...] 2022. Calcium 7.8(L) 8.5 - 10.3 mg/dL [facility] Bilirubin, total 0.4 0.1 - 1.2 mg/dL [facility] Protein, pl 5.8(L) 6.5 - 8.5 g/dL [facility] Albumin 2.6(L) 3.5 - 5.0 g/dL [facility] Alk phos 62 40 - 130 Units/L [facility] ALT 13 7 - 55 Units/L [facility] AST 37 10 - 50 Units/L [facility] Comment:Slightly Hemolyzed S pecimen Blood 03/02/2025 8:33 AM CDT 03/02/2025 8:37 AM CDT Rehana Shipley DO LAB BLOOD ORDERABLES F inal Result Performing Organization Address [facility] Co de Phone Number [facility] [address] Department [place] [address] * POCT glucose (03/02/2025 8:19 AM CDT) Glucose, POC 117 70 - 199 mg/dL Comment: For Glucose values <35 mg/dl when Hematocrit is >60 mg/dl,the test may not accurately detect significant hypoglycemia,and testing in the Laboratory should be considered if clinically indicated. POC Performer [id number] [facility] Blood 03/02/2025 8:19 AM CDT 03/02/2025 8:19 AM CDT us Maryjo Deshpande MD LAB POCT ORDERABLES - DEVICE Final Result Performing Organization Address [facility] Co de Phone Number [facility] [address] [place] [address] * POCT glucose (03/02/2025 4:09 AM CDT) Glucose, POC 125 70 - 199 mg/dL Comment: For Glucose values <35 mg/dl when Hematocrit is >60 mg/dl,the test may not accurately detect significant hypoglycemia,and testing in the Laboratory should be considered if clinically indicated. POC Performer [id number] [facility] Blood 03/02/2025 4:09 AM CDT 03/02/2025 4:09 AM CDT us Rehana Shipley DO LAB POCT ORDERABLES - DEVICE Final Result Performing Organization Address [facility] Co de Phone Number [facility] [address] [place] [address] * XR Chest 1 View (03/02/2025 3:53 [...] K/cumm Hgb 7.9(L) 13.0 - 17.5 g/dL [facility] Hct 24.6(L) 38.9 - 50.3 % [facility] Plt 274 150 - 400 K/cumm [facility] MPV 12.7(H) 9.1 - 12.3 fL [facility] RBC 2.73(L) 4.30 - 5.80 M/cumm [facility] MCV 90.1 81.3 - 96.4 fL [facility] MCH 28.9 27.1 - 33.3 pg [facility] MCHC 32.1(L) 32.3 - 35.7 g/dL [facility] RDW CV 14.8 11.1 - 14.9 % [facility] RDW SD 48.9(H) 35.7 - 48.1 fL [facility] NRBC abs 0.00 0.00 - 0.01 K/cumm [facility] Blood 03/02/2025 12:0 8 AM CDT 03/02/2025 12:11 AM CDT Narrative [facility] - 03/02/2025 12:18 AM CDT While on heparin infusion us Rehana Shipley DO LAB BLOOD ORDERABLES F inal Result Performing Organization Address City/[facility]/ZIP Co de Phone Number [facility] [address] Department [employer] [place], [place] [phone] * POCT glucose (03/02/2025 12:03 AM CDT) Glucose, POC 125 70 - 199 mg/dL Comment: For Glucose values <35 mg/dl when Hematocrit is >60 mg/dl,the test may not accurately detect significant hypoglycemia,and testing in the Laboratory should be considered if clinically indicated. POC Performer [id number] [facility] Blood 03/02/2025 12:0 3 AM CDT 03/02/2025 12:03 AM CDT Rehana Shipley DO LAB POCT ORDERABLES - DEVICE Final Result Performing Organization Address [facility] Co de Phone Number [facility] [address] Department of [employer] [place], [place] [phone] * Lactate (03/01/2025 8:07 PM CDT) Lactate 0.9 0.7 - 2.0 mmol/L Blood 03/01/2025 8:07 PM CDT 03/01/2025 8:11 PM CDT Rehana Shipley DO LAB BLOOD ORDERABLES F inal Result Performing Organization Address City/[facility] Co de Phone Number [facility] [address] Department of [employer] [place], [place] [phone] * (ABNORMAL) Hemoglobin and hematocrit (03/01/2025 8:07 PM CDT) Hgb 7.8(L) 13.0 - 17.5 g/dL Hct 24.6(L) 38.9 - 50.3 % [facility] Blood 03/01/2025 8:07 PM CDT 03/01/2025 8:13 PM CDT Rehana Shipley LAB BLOOD ORDERABLES F inal Result Performing Organization Address [facility] Co de Phone Number [facility] [address] [place] [address] * POCT glucose (03/01/2025 8:05 PM CDT) [facility] Glucose, POC 112 70 - 199 mg/dL Comment: For Glucose values <35 mg/dl when Hematocrit is >60 mg/dl,the test may not accurately detect significant hypoglycemia,and testing in the Laboratory should be considered if clinically indicated. POC Performer [id number] [facility] Blood 03/01/2025 8:05 PM CDT 03/01/2025 8:05 PM CDT Rehana Shipley [facility] POCT ORDERABLES - DEVICE Final Result Performing Organization Address [facility] Co de Phone Number [facility] [address] [place] [address] * (ABNORMAL) Hemoglobin and hematocrit (03/01/2025 4:26 PM CDT) Hgb 8.8(L) 13.0 - 17.5 g/dL Hct 28.2(L) 38.9 - 50.3 % [facility] Blood 03/01/2025 4:26 PM CDT 03/01/2025 4:26 PM CDT Rehana Shipley Proficient LAB BLOOD ORDERABLES F inal Result Performing Organization Address [facility] Co de Phone Number [facility] [address] [facility] [place] [address] * aPTT (03/01/2025 4:26 PM CDT) aPTT 30 28 - 38 sec Comment: Interpretive Data Heparin therapeutic range: 66.0 - 100.0 seconds. Range based on correlation with therapeutic heparin activity range of 0.3 - 0.7 Units/mL. Current interpretive data was last revised on 2023. Blood 03/01/2025 4:26 PM CDT 03/01/2025 4:26 PM CDT Rehana Shipley [facility] BLOOD ORDERABLES F inal Result Performing Organization Address [facility] de Phone Number [facility] [address] [facility] [place] [address] * (ABNORMAL) Protime-INR (03/01/2025 4:26 PM CDT) PT 16.4(H) 9.7 - 13.0 sec INR 1.51(H) 0.90 - 1.20 [facility] Comment: Interpretive data Oral anticoagulant therapeutic ranges: Venous thromboembolism prophylaxis or treatment: 2.0-3.0 CARDIOLOGY Standard range: 2.0-3.0 High-intensity range: 2.5-3.5 Refer to indication-specific guidelines for appropriate target ranges for prosthetic heart valve replacement. Current interpretive data was last revised on 2019. Blood 03/01/2025 4:26 PM CDT 03/01/2025 4:26 PM CDT Rehana Shipley Proficient LAB BLOOD ORDERABLES F inal Result Performing Organization Address [facility] Co de Phone Number [facility] [address] [facility] [employer] [place], [place] [phone] * POCT glucose (03/01/2025 4:17 PM CDT) Glucose, POC 120 70 - 199 mg/dL Comment: For Glucose values <35 mg/dl when Hematocrit is >60 mg/dl,the test may not accurately detect significant hypoglycemia,and testing in the Laboratory should be considered if clinically indicated. POC Performer [id number] [facility] Blood 03/01/2025 4:17 PM CDT 03/01/2025 4:17 PM CDT Rehana Shipley [facility] POCT ORDERABLES - DEVICE Final Result Performing Organization Address [facility] de Phone Number [facility] [address] [facility] [place] [address] * (ABNORMAL) aPTT (03/01/2025 1:45 PM CDT) Pathologist [facility] aPTT 77(H) 28 - 38 sec Comment: Interpretive Data Heparin therapeutic range: 66.0 - 100.0 seconds. Range based on correlation with therapeutic heparin activity range of 0.3 - 0.7 Units/mL. Current interpretive data was last revised on 2023. Blood 03/01/2025 1:45 PM CDT 03/01/2025 2:13 PM CDT Rehanababak Shipley LAB BLOOD ORDERABLES F inal Result Performing Organization Address [facility] Co de Phone Number [facility] [address] [facility] [employer] [place], [place] [phone] * (ABNORMAL) Protime-INR (03/01/2025 1:45 PM CDT) Pathologist [facility] PT 16.7(H) 9.7 - 13.0 sec INR 1.53(H) 0.90 - 1.20 [facility] Comment: Interpretive data Oral anticoagulant therapeutic ranges: Venous thromboembolism prophylaxis or treatment: 2.0-3.0 CARDIOLOGY Standard range: 2.0-3.0 High-intensity range: 2.5-3.5 Refer to indication-specific guidelines for appropriate target ranges for prosthetic heart valve replacement. Current interpretive data was last revised on 2019. Blood 03/01/2025 1:45 PM CDT 03/01/2025 2:13 PM CDT Rehana Shipley DO LAB BLOOD ORDERABLES F inal Result Performing Organization Address City/[facility]/ZIP Co de Phone Number [facility] [address] [place] [address] * Type and screen (03/01/2025 1:45 PM CDT) Pathologist [facility] ABO Rh B Positive Esme, indirect Negative [facility] Blood 03/01/2025 1:45 PM CDT 03/01/2025 2:11 PM CDT Narrative [facility] - 03/01/2025 2:52 PM CDT Has the patient had Daratumumab or Isatuximab in the past 6 months?->Unknown Rehana Shipley DO LAB BLOOD BANK TEST OR DERABLES Final Result Performing Organization Address City/[facility]/ZIP Co de Phone Number [facility] [address] [place] [address] * Prepare RBC: 1 Units (03/01/2025 1:37 PM CDT) Product code [id number] Unit Number [id number] 4-U [facility] Product Blood Type BPOS [facility] Dispense Status RETURNED [facility] Blood 03/01/2025 1:37 PM CDT Narrative [facility] - 03/05/2025 7:20 AM CDT Are special requirements needed? (All products are leukoreduced and CMV- safe)- >No Date required:-[id number] LRRBC # of [id number] Reasons:-Hemorrhagic shock/Life-threatening bleeding} us Rehaan Shipley DO BLOOD BANK PRODUCT ORD ERABLES Final Result [facility] [address] Department [place] [address] * CT Abdomen Pelvis WO Contrast (03/01/2025 [...] Lactate (03/01/2025 12:51 PM CDT) Pathologist [facility] Lactate 1.1 0.7 - 2.0 mmol/L Blood 03/01/2025 12:5 1 PM CDT 03/01/2025 1:00 PM CDT Rehana Shipley DO LAB BLOOD ORDERABLES F inal Result [facility] [address] Department [place] [address] * (ABNORMAL) eGFR (03/01/2025 12:51 PM CDT) [...] DO LAB BLOOD ORDERABLES F inal Result [facility] [address] [address] * (ABNORMAL) Hemoglobin and hematocrit (03/01/2025 12:51 PM CDT) Pathologist [facility] Hgb 8.9(L) 13.0 - 17.5 g/dL Hct 27.6(L) 38.9 - 50.3 % [facility] Blood 03/01/2025 12:5 1 PM CDT 03/01/2025 1:02 PM CDT Rehana Shipley DO LAB BLOOD ORDERABLES F inal Result [facility] [address] [place] [address] * (ABNORMAL) Comprehensive metabolic panel (03/01/2025 12:51 PM CDT) Sodium 134(L) 135 - 145 mmol/L Potassium, pl 4.2 3.3 - 4.9 mmol/L [facility] Chloride 96(L) 97 - 110 mmol/L [facility] CO2 20(L) 22 - 32 mmol/L [facility] Anion gap 18(H) 2 - 15 mmol/L [facility] BUN 108(H) 6 - 25 mg/dL [facility] Creatinine 2.74(H) 0.80 - 1.30 mg/dL [facility] Glucose 133 70 - 199 mg/dL [facility] Comment: Interpretive Data Fasting glucose >/= [...] 2022. Calcium 8.4(L) 8.5 - 10.3 mg/dL [facility] Bilirubin, total 0.3 0.1 - 1.2 mg/dL [facility] Protein, pl 5.9(L) 6.5 - 8.5 g/dL [facility] Albumin 2.6(L) 3.5 - 5.0 g/dL [facility] Alk phos 72 40 - 130 Units/L [facility] ALT 11 7 - 55 Units/L [facility] AST 34 10 - 50 Units/L [facility] Blood 03/01/2025 12:5 1 PM CDT 03/01/2025 1:02 PM CDT us Rehana Shipley DO LAB BLOOD ORDERABLES F inal Result [facility] [address] Department [place] [address] * POCT glucose (03/01/2025 11:25 AM CDT) Glucose, POC 161 70 - 199 mg/dL Comment: For Glucose values <35 mg/dl when Hematocrit is >60 mg/dl,the test may not accurately detect significant hypoglycemia,and testing in the Laboratory should be considered if clinically indicated. POC Performer [id number] [facility] Blood 03/01/2025 11:2 5 AM CDT 03/01/2025 11:25 AM CDT Rehana Shipley [facility] POCT ORDERABLES - DEVICE Final Result Performing Organization Address [facility] de Phone Number [facility] [address] [place] [address] * POCT glucose (03/01/2025 8:33 AM CDT) Glucose, POC 149 70 - 199 mg/dL Comment: For Glucose values <35 mg/dl when Hematocrit is >60 mg/dl,the test may not accurately detect significant hypoglycemia,and testing in the Laboratory should be considered if clinically indicated. POC Performer [id number] [facility] Blood 03/01/2025 8:33 AM CDT 03/01/2025 8:33 AM CDT Rehana Shipley [facility] POCT ORDERABLES - DEVICE Final Result Performing Organization Address [facility] Co de Phone Number [facility] [address] [place] [address] * POCT glucose (03/01/2025 4:39 AM CDT) Glucose, POC 131 70 - 199 mg/dL Comment: For Glucose values <35 mg/dl when Hematocrit is >60 mg/dl,the test may not accurately detect significant hypoglycemia,and testing in the Laboratory should be considered if clinically indicated. POC Performer [id number] [facility] Blood 03/01/2025 4:39 AM CDT 03/01/2025 4:39 AM CDT Rehana Shipley DO LAB POCT ORDERABLES - DEVICE Final Result [facility] [address] Department [place] [address] * XR Chest 1 View (03/01/2025 4:14 [...] * (ABNORMAL) eGFR (03/01/2025 2:45 AM CDT) [facility] eGFR 24(L) >=60 mL/min/1. 73 m2 Comment: [...] DO LAB BLOOD ORDERABLES F inal Result [facility] [address] Department [place] [address] * (ABNORMAL) Differential, auto (03/01/2025 2:45 AM CDT) Neutrophil abs 15.68(H) 1.50 - 6.50 K/cumm Imm gran abs 0.19(H) 0.00 - 0.10 K/cumm [facility] Lymphocyte abs 2.32 0.80 - 3.30 K/cumm [facility] Monocyte abs 1.64(H) 0.20 - 0.80 K/cumm [facility] Eosinophil abs 0.02 0.00 - 0.50 K/cumm [facility] Basophil abs 0.07 0.00 - 0.10 K/cumm [facility] Neutrophil pct 78.7 % [facility] Comment: Interpretive Data Percent cell count reference ranges are not reported, since discordance with absolute values may lead to misinterpretation of CBC data. Current Interpretive Data was last revised on 2018. Imm gran pct 1.0 % [facility] Comment: Interpretive Data Percent cell count reference ranges are not reported, since discordance with absolute values may lead to misinterpretation of CBC data. Current Interpretive Data was last revised on 2018. Lymphocyte pct 11.6 % [facility] Comment: Interpretive Data Percent cell count reference ranges are not reported, since discordance with absolute values may lead to misinterpretation of CBC data. Current Interpretive Data was last revised on 2018. Monocyte pct 8.2 % [facility] Comment: Interpretive Data Percent cell count reference ranges are not reported, since discordance with absolute values may lead to misinterpretation of CBC data. Current Interpretive Data was last revised on 2018. Eosinophil pct 0.1 % [facility] Comment: Interpretive Data Percent cell count reference ranges are not reported, since discordance with absolute values may lead to misinterpretation of CBC data. Current Interpretive Data was last revised on 2018. Basophil pct 0.4 % [facility] Comment: Interpretive Data Percent cell count reference ranges are not reported, since discordance with absolute values may lead to misinterpretation of CBC data. Current Interpretive Data was last revised on 2018. Blood 03/01/2025 2:45 AM CDT 03/01/2025 2:56 AM CDT us Rehana Shipley DO LAB BLOOD ORDERABLES F inal Result [facility] [address] Department [place] [address] * (ABNORMAL) CBC with auto differential (03/01/2025 2:45 AM CDT) WBC 19.92(H) 3.80 - 9.90 K/cumm Hgb 10.7(L) 13.0 - 17.5 g/dL [facility] Hct 34.5(L) 38.9 - 50.3 % [facility] Plt 291 150 - 400 K/cumm [facility] MPV 12.8(H) 9.1 - 12.3 fL [facility] RBC 3.75(L) 4.30 - 5.80 M/cumm [facility] MCV 92.0 81.3 - 96.4 fL [facility] MCH 28.5 27.1 - 33.3 pg [facility] MCHC 31.0(L) 32.3 - 35.7 g/dL [facility] RDW CV 14.9 11.1 - 14.9 % [facility] RDW SD 49.9(H) 35.7 - 48.1 fL [facility] NRBC abs 0.00 0.00 - 0.01 K/cumm [facility] Blood 03/01/2025 2:45 AM CDT 03/01/2025 2:56 AM CDT Rehana Shipley DO LAB BLOOD ORDERABLES F inal Result [facility] [address] Department [place] [address] * Blood culture Blood (03/01/2025 2:45 AM CDT) Report Final Report: No growth Blood 03/01/2025 2:45 AM CDT 03/01/2025 2:58 AM CDT Narrative [facility] - 03/06/2025 7:01 AM CDT From [...] organism identification may be performed using the [employer] Blood Culture Identification panel. This assay detects microbial DNA in a blood culture broth. This assay has been cleared by the [place] Food and Drug Administration and its performance characteristics have been verified by the [facility]. Interpretive data was last revised on November 09, 2022. Rehana Shipley DO LAB MICROBIOLOGY - GEN ERAL ORDERABLES Final Result [facility] [address] [facility] [place] [address] * Blood culture Blood (03/01/2025 2:45 AM CDT) Report Final Report: No growth Blood 03/01/2025 2:45 AM CDT 03/01/2025 2:58 AM CDT Narrative [facility] - 03/06/2025 7:01 AM CDT Interpretive Data [...] organism identification may be performed using the [employer] Blood Culture Identification panel. This assay detects microbial DNA in a blood culture broth. This assay has been cleared by the [place] Food and Drug Administration and its performance characteristics have been verified by the [facility]. Interpretive data was last revised on November 09, 2022. Rehana Shipley DO LAB MICROBIOLOGY - GEN ERAL ORDERABLES Final Result Performing Organization Address [facility] de Phone Number [facility] [address] [place] [address] * (ABNORMAL) aPTT (03/01/2025 2:45 AM CDT) [...] ORDERABLES F inal Result Performing Organization Address [facility]/ZIP Co de Phone Number [facility] [address] [place] [place] [address] * (ABNORMAL) Magnesium (03/01/2025 2:45 AM CDT) Pathologist [facility] Magnesium 2.7(H) 1.4 - 2.5 mg/dL Blood 03/01/2025 2:45 AM CDT 03/01/2025 2:58 AM CDT us Rehanababak Shipley DO LAB BLOOD ORDERABLES F inal Result Performing Organization Address [facility] Co de Phone Number [facility] [address] [place] [address] * (ABNORMAL) Renal function panel (03/01/2025 2:45 AM CDT) [facility] Sodium 136 135 - 145 mmol/L Potassium, pl 4.4 3.3 - 4.9 mmol/L [facility] Chloride 96(L) 97 - 110 mmol/L [facility] CO2 21(L) 22 - 32 mmol/L [facility] Anion gap 19(H) 2 - 15 mmol/L [facility] BUN 103(H) 6 - 25 mg/dL [facility] Creatinine 2.77(H) 0.80 - 1.30 mg/dL [facility] Glucose 132 70 - 199 mg/dL [facility] Comment: Interpretive Data Fasting glucose >/= [...] 2022. Calcium 8.7 8.5 - 10.3 mg/dL [facility] Phosphorus, pl 6.0(H) 2.3 - 4.5 mg/dL [facility] Albumin 2.9(L) 3.5 - 5.0 g/dL [facility] Blood 03/01/2025 2:45 AM CDT 03/01/2025 2:58 AM CDT Rehana Shipley DO LAB BLOOD ORDERABLES F inal Result Performing Organization Address [facility]/ZIP Co de Phone Number [facility] [address] Department [place] [address] * POCT glucose (03/01/2025 12:44 AM CDT) Glucose, POC 152 70 - 199 mg/dL Comment: For Glucose values <35 mg/dl when Hematocrit is >60 mg/dl,the test may not accurately detect significant hypoglycemia,and testing in the Laboratory should be considered if clinically indicated. POC Performer [id number] [facility] Blood 03/01/2025 12:4 4 AM CDT 03/01/2025 12:44 AM CDT Rehana Shipley DO LAB POCT ORDERABLES - DEVICE Final Result Performing Organization Address [facility] Co de Phone Number [facility] [address] Department [place] [address] * POCT glucose (02/28/2025 7:57 PM CDT) Glucose, POC 171 70 - 199 mg/dL Comment: For Glucose values <35 mg/dl when Hematocrit is >60 mg/dl,the test may not accurately detect significant hypoglycemia,and testing in the Laboratory should be considered if clinically indicated. POC Performer [id number] [facility] Blood 02/28/2025 7:57 PM CDT 02/28/2025 7:57 PM CDT Rehana Shipley DO LAB POCT ORDERABLES - DEVICE Final Result Performing Organization Address [facility] Co de Phone Number [facility] [address] [facility] [employer] [place], [place] [id number] * POCT glucose (02/28/2025 5:16 PM CDT) Glucose, POC 164 70 - 199 mg/dL Comment: For Glucose values <35 mg/dl when Hematocrit is >60 mg/dl,the test may not accurately detect significant hypoglycemia,and testing in the Laboratory should be considered if clinically indicated. POC Performer [id number] [facility] Blood 02/28/2025 5:16 PM CDT 02/28/2025 5:16 PM CDT Rehana Shipley DO LAB POCT ORDERABLES - DEVICE Final Result Performing Organization Address [facility] de Phone Number [facility] [address] [facility] [place] [address] * (ABNORMAL) aPTT (02/28/2025 2:53 PM CDT) [...] ORDERABLES F inal Result Performing Organization Address [facility] Co de Phone Number [facility] [address] [facility] [employer] [place], [place] [id number] * (ABNORMAL) POCT glucose (02/28/2025 12:49 PM CDT) Glucose, POC 201(H) 70 - 199 mg/dL Comment: For Glucose values <35 mg/dl when Hematocrit is >60 mg/dl,the test may not accurately detect significant hypoglycemia,and testing in the Laboratory should be considered if clinically indicated. POC Performer [id number] [facility] Blood 02/28/2025 12:4 9 PM CDT 02/28/2025 12:49 PM CDT Rehana Shipley DO LAB POCT ORDERABLES - DEVICE Final Result Performing Organization Address [facility] Co de Phone Number [facility] [address] Department [place] [address] * (ABNORMAL) aPTT (02/28/2025 8:10 AM CDT) [...] ORDERABLES Madhavi l Result Performing Organization Address [facility] Co de Phone Number [facility] [address] Department [place] [address] * POCT glucose (02/28/2025 8:04 AM CDT) Glucose, POC 129 70 - 199 mg/dL Comment: For Glucose values <35 mg/dl when Hematocrit is >60 mg/dl,the test may not accurately detect significant hypoglycemia,and testing in the Laboratory should be considered if clinically indicated. POC Performer [id number] [facility] Blood 02/28/2025 8:04 AM CDT 02/28/2025 8:04 AM CDT Rehana Kaylan Barks DO LAB POCT ORDERABLES - DEVICE Final Result Performing Organization Address [facility] Co de Phone Number [facility] [address] [facility] [place] [address] * POCT glucose (02/28/2025 4:14 AM CDT) Glucose, POC 122 70 - 199 mg/dL Comment: For Glucose values <35 mg/dl when Hematocrit is >60 mg/dl,the test may not accurately detect significant hypoglycemia,and testing in the Laboratory should be considered if clinically indicated. POC Performer [id number] [facility] Blood 02/28/2025 4:14 AM CDT 02/28/2025 4:14 AM CDT Rehana Shipley DO LAB POCT ORDERABLES - DEVICE Final Result Performing Organization Address [facility] de Phone Number [facility] [address] Department [place] [address] * XR Chest 1 View (02/28/2025 3:49 [...] LAB BLOOD ORDERABLES F inal Result [facility] [address] Department [place] [address] * (ABNORMAL) eGFR (02/28/2025 1:21 AM CDT) [...] DO LAB BLOOD ORDERABLES F inal Result [facility] [address] Department [place] [address] * (ABNORMAL) Differential, auto (02/28/2025 1:21 AM CDT) Neutrophil abs 13.25(H) 1.50 - 6.50 K/cumm Imm gran abs 0.15(H) 0.00 - 0.10 K/cumm [facility] Lymphocyte abs 2.15 0.80 - 3.30 K/cumm [facility] Monocyte abs 1.67(H) 0.20 - 0.80 K/cumm [facility] Eosinophil abs 0.19 0.00 - 0.50 K/cumm [facility] Basophil abs 0.07 0.00 - 0.10 K/cumm [facility] Neutrophil pct 75.7 % [facility] Comment: Interpretive Data Percent cell count reference ranges are not reported, since discordance with absolute values may lead to misinterpretation of CBC data. Current Interpretive Data was last revised on 2018. Imm gran pct 0.9 % [facility] Comment: Interpretive Data Percent cell count reference ranges are not reported, since discordance with absolute values may lead to misinterpretation of CBC data. Current Interpretive Data was last revised on 2018. Lymphocyte pct 12.3 % [facility] Comment: Interpretive Data Percent cell count reference ranges are not reported, since discordance with absolute values may lead to misinterpretation of CBC data. Current Interpretive Data was last revised on 2018. Monocyte pct 9.6 % [facility] Comment: Interpretive Data Percent cell count reference ranges are not reported, since discordance with absolute values may lead to misinterpretation of CBC data. Current Interpretive Data was last revised on 2018. Eosinophil pct 1.1 % [facility] Comment: Interpretive Data Percent cell count reference ranges are not reported, since discordance with absolute values may lead to misinterpretation of CBC data. Current Interpretive Data was last revised on 2018. Basophil pct 0.4 % [facility] Comment: Interpretive Data Percent cell count reference ranges are not reported, since discordance with absolute values may lead to misinterpretation of CBC data. Current Interpretive Data was last revised on 2018. Blood 02/28/2025 1:21 AM CDT 02/28/2025 1:32 AM CDT Rehana Shipley DO LAB BLOOD ORDERABLES F inal Result Performing Organization Address [facility]/ZIP Co de Phone Number [facility] [address] [facility] [place] [address] * (ABNORMAL) Procalcitonin (02/28/2025 1:21 AM CDT) Pathologist [facility] Procalcitonin 0.29(H) <=0.25 ng/mL Blood 02/28/2025 1:21 AM CDT 02/28/2025 1:33 AM CDT Rehana Camposrice Violetta DO LAB BLOOD ORDERABLES F inal Result Performing Organization Address [facility] Co de Phone Number [facility] [address] [facility] [employer] [place], [place] [id number] * Thyroid Function [place] (02/28/2025 1:21 AM CDT) Pathologist [facility] TSH 3.26 0.30 - 4.20 mcIUnit/mL Blood 02/28/2025 1:21 AM CDT 02/28/2025 1:33 AM CDT Rehana Shipley DO LAB BLOOD ORDERABLES F inal Result Performing Organization Address City/[facility] Co de Phone Number [facility] [address] [place] [address] * (ABNORMAL) CBC with auto differential (02/28/2025 1:21 AM CDT) WBC 17.48(H) 3.80 - 9.90 K/cumm Hgb 12.5(L) 13.0 - 17.5 g/dL [facility] Hct 39.7 38.9 - 50.3 % [facility] Plt 260 150 - 400 K/cumm [facility] MPV 12.7(H) 9.1 - 12.3 fL [facility] RBC 4.35 4.30 - 5.80 M/cumm [facility] MCV 91.3 81.3 - 96.4 fL [facility] MCH 28.7 27.1 - 33.3 pg [facility] MCHC 31.5(L) 32.3 - 35.7 g/dL [facility] RDW CV 15.3(H) 11.1 - 14.9 % [facility] RDW SD 51.0(H) 35.7 - 48.1 fL [facility] NRBC abs 0.00 0.00 - 0.01 K/cumm [facility] Blood 02/28/2025 1:21 AM CDT 02/28/2025 1:32 AM CDT us Rehana Shipley DO LAB BLOOD ORDERABLES F inal Result [facility] [address] Department [place] [address] * (ABNORMAL) aPTT (02/28/2025 1:21 AM CDT) Pathologist [facility] aPTT 60(H) 28 - 38 sec Comment: Interpretive Data Heparin therapeutic range: 66.0 - 100.0 seconds. Range based on correlation with therapeutic heparin activity range of 0.3 - 0.7 Units/mL. Current interpretive data was last revised on 2023. Blood 02/28/2025 1:21 AM CDT 02/28/2025 1:27 AM CDT us Evgeny Villalba MD LAB BLOOD ORDERABLES Madhavi l Result Performing Organization Address City/[facility]/ZIP Co de Phone Number [facility] [address] [facility] [employer] [place], [place] [id number] * (ABNORMAL) Phosphorus (02/28/2025 1:21 AM CDT) [facility] Phosphorus, pl 4.6(H) 2.3 - 4.5 mg/dL Blood 02/28/2025 1:21 AM CDT 02/28/2025 1:33 AM CDT Rehana Shipley DO LAB BLOOD ORDERABLES F inal Result Performing Organization Address [facility] Co de Phone Number [facility] [address] Department [employer] [place], [place] [id number] * (ABNORMAL) Magnesium (02/28/2025 1:21 AM CDT) [facility] Magnesium 2.9(H) 1.4 - 2.5 mg/dL Blood 02/28/2025 1:21 AM CDT 02/28/2025 1:33 AM CDT Rehana Shipley DO LAB BLOOD ORDERABLES F inal Result Performing Organization Address [facility] Co de Phone Number [facility] [address] Department [employer] [place], [place] [id number] * (ABNORMAL) Comprehensive metabolic panel (02/28/2025 1:21 AM CDT) [facility] Sodium 144 135 - 145 mmol/L Potassium, pl 3.9 3.3 - 4.9 mmol/L [facility] Chloride 104 97 - 110 mmol/L [facility] CO2 22 22 - 32 mmol/L [facility] Anion gap 18(H) 2 - 15 mmol/L [facility] BUN 88(H) 6 - 25 mg/dL [facility] Creatinine 2.41(H) 0.80 - 1.30 mg/dL [facility] Glucose 128 70 - 199 mg/dL [facility] Comment: Interpretive Data Fasting glucose >/= [...] 2022. Calcium 8.6 8.5 - 10.3 mg/dL [facility] Bilirubin, total 0.2 0.1 - 1.2 mg/dL [facility] Protein, pl 6.7 6.5 - 8.5 g/dL [facility] Albumin 2.9(L) 3.5 - 5.0 g/dL [facility] Alk phos 78 40 - 130 Units/L [facility] ALT 9 7 - 55 Units/L [facility] AST 41 10 - 50 Units/L [facility] Blood 02/28/2025 1:21 AM CDT 02/28/2025 1:33 AM CDT us Rehana Shipley DO LAB BLOOD ORDERABLES F inal Result [facility] [address] Department [place] [address] * POCT glucose (02/28/2025 12:21 AM CDT) [facility] Signature Glucose, POC 113 70 - 199 mg/dL Comment: For Glucose values <35 mg/dl when Hematocrit is >60 mg/dl,the test may not accurately detect significant hypoglycemia,and testing in the Laboratory should be considered if clinically indicated. POC Performer [id number] [facility] Blood 02/28/2025 12:2 1 AM CDT 02/28/2025 12:21 AM CDT Rehanamoise Shipley DO LAB POCT ORDERABLES - DEVICE Final Result Performing Organization Address [facility] Co de Phone Number [facility] [address] [facility] [employer] [place], [place] [phone] * POCT glucose (02/27/2025 8:07 PM CDT) Glucose, POC 122 70 - 199 mg/dL Comment: For Glucose values <35 mg/dl when Hematocrit is >60 mg/dl,the test may not accurately detect significant hypoglycemia,and testing in the Laboratory should be considered if clinically indicated. POC Performer [id number] [facility] Blood 02/27/2025 8:07 PM CDT 02/27/2025 8:07 PM CDT Rehana Mackeyjerzy LAB POCT ORDERABLES - DEVICE Final Result Performing Organization Address [facility] Co de Phone Number [facility] [address] [facility] [place] [address] * (ABNORMAL) aPTT (02/27/2025 6:23 PM CDT) aPTT 54(H) 28 - 38 sec Comment: Interpretive Data Heparin therapeutic range: 66.0 - 100.0 seconds. Range based on correlation with therapeutic heparin activity range of 0.3 - 0.7 Units/mL. Current interpretive data was last revised on 2023. Blood 02/27/2025 6:23 PM CDT 02/27/2025 6:32 PM CDT Rehanababak Shipley Proficient LAB BLOOD ORDERABLES F inal Result Performing Organization Address [facility] Co de Phone Number [facility] [address] [address] [place] [address] * POCT glucose (02/27/2025 4:09 PM CDT) Glucose, POC 195 70 - 199 mg/dL Comment: For Glucose values <35 mg/dl when Hematocrit is >60 mg/dl,the test may not accurately detect significant hypoglycemia,and testing in the Laboratory should be considered if clinically indicated. POC Performer [phone] [facility] Blood 02/27/2025 4:09 PM CDT 02/27/2025 4:09 PM CDT Rehana Shipley DO LAB POCT ORDERABLES - DEVICE Final Result Performing Organization Address [facility]/ZIP Co de Phone Number [facility] [address] Department of Laboratories [place], [place] [id number] * NT-Pro BNP - Add on lab test (02/27/2025 2:33 PM CDT) [facility] Acceptable Yes Blood 02/27/2025 2:33 PM CDT 02/27/2025 2:33 PM CDT Narrative [facility] - 02/27/2025 2:33 PM CDT Name of Test->NT-Pro BNP Balbina Mac SHRIMP PACKER LAB BLOOD ORDERABLES Fi nal Result Performing Organization Address [facility] Co de Phone Number [facility] [address] Department [place] [address] * (ABNORMAL) POCT glucose (02/27/2025 12:08 PM CDT) Glucose, POC 264(H) 70 - 199 mg/dL Comment: For Glucose values <35 mg/dl when Hematocrit is >60 mg/dl,the test may not accurately detect significant hypoglycemia,and testing in the Laboratory should be considered if clinically indicated. POC Performer [phone] [facility] Blood 02/27/2025 12:0 8 PM CDT 02/27/2025 12:08 PM CDT Rehana Shipley DO LAB POCT ORDERABLES - DEVICE Final Result Performing Organization Address [facility] Co de Phone Number [facility] [address] [place] [place] [address] * ECG 12 lead (02/27/2025 11:45 AM CDT) 02/27/2025 11:4 5 AM CDT Narrative [facility] - 02/27/2025 12:09 PM CDT Vent Rate: 89 bpm RR Interval: 671 msec AL Interval: 173 msec QRS Duration: 158 msec QT Interval: 452 msec QTC Interval: 499 msec P-R-T Boomer: 55 - 46 - 253 degrees IMPRESSION: SINUS RHYTHM INTRAVENTRICULAR CONDUCTION DELAY [130+ ms QRS DURATION] ABNORMAL ECG Electronically Signed By: Maryjo Canchola MD, [facility] Rehana Shipley DO ECG ORDERABLES Final Result Performing Organization Address [facility] Phone Number [facility] * aPTT (02/27/2025 9:33 AM CDT) aPTT 32 28 - 38 sec Comment: Interpretive Data Heparin therapeutic range: 66.0 - 100.0 seconds. Range based on correlation with therapeutic heparin activity range of 0.3 - 0.7 Units/mL. Current interpretive data was last revised on 2023. Blood 02/27/2025 9:33 AM CDT 02/27/2025 10:01 AM CDT Narrative [facility] - 02/27/2025 10:16 AM CDT Baseline prior to heparin initiation Rehana Shipley DO LAB BLOOD ORDERABLES F inal Result Performing Organization Address [facility] de Phone Number [facility] [address] [place] [address] * Protime-INR (02/27/2025 9:33 AM CDT) PT 12.2 9.7 - 13.0 sec INR 1.13 0.90 - 1.20 [facility] Comment: Interpretive data Oral anticoagulant therapeutic ranges: Venous thromboembolism prophylaxis or treatment: 2.0-3.0 CARDIOLOGY Standard range: 2.0-3.0 High-intensity range: 2.5-3.5 Refer to indication-specific guidelines for appropriate target ranges for prosthetic heart valve replacement. Current interpretive data was last revised on 2019. Blood 02/27/2025 9:33 AM CDT 02/27/2025 10:01 AM CDT Narrative [facility] - 02/27/2025 10:16 AM CDT Baseline prior to heparin initiation us Rehana Shipley DO LAB BLOOD ORDERABLES F inal Result [facility] [address] Department [place] [address] * (ABNORMAL) CBC without differential (02/27/2025 9:33 AM CDT) WBC 20.73(H) 3.80 - 9.90 K/cumm Hgb 13.0 13.0 - 17.5 g/dL [facility] Hct 42.4 38.9 - 50.3 % [facility] Plt 269 150 - 400 K/cumm [facility] MPV 13.3(H) 9.1 - 12.3 fL [facility] RBC 4.52 4.30 - 5.80 M/cumm [facility] MCV 93.8 81.3 - 96.4 fL [facility] MCH 28.8 27.1 - 33.3 pg [facility] MCHC 30.7(L) 32.3 - 35.7 g/dL [facility] RDW CV 15.5(H) 11.1 - 14.9 % [facility] RDW SD 54.0(H) 35.7 - 48.1 fL [facility] NRBC abs 0.00 0.00 - 0.01 K/cumm [facility] Blood 02/27/2025 9:33 AM CDT 02/27/2025 10:01 AM CDT Narrative [facility] - 02/27/2025 10:13 AM CDT Baseline prior to heparin initiation Rehana Mackeyjerzy DO LAB BLOOD ORDERABLES F inal Result Performing Organization Address [facility]/ZIP Co de Phone Number [facility] [address] Department [place] [address] * POCT glucose (02/27/2025 7:47 AM CDT) [facility] Signature Glucose, POC 190 70 - 199 mg/dL Comment: For Glucose values <35 mg/dl when Hematocrit is >60 mg/dl,the test may not accurately detect significant hypoglycemia,and testing in the Laboratory should be considered if clinically indicated. POC Performer [phone] [facility] Blood 02/27/2025 7:47 AM CDT 02/27/2025 7:47 AM CDT Rehana Kaylan Violetta LAB POCT ORDERABLES - DEVICE Final Result Performing Organization Address [facility] Co de Phone Number [facility] [address] Department [place] [address] * XR Chest 1 View (02/27/2025 5:09 [...] * POCT glucose (02/27/2025 4:20 AM CDT) [facility] Glucose, POC 181 70 - 199 mg/dL Comment: For Glucose values <35 mg/dl when Hematocrit is >60 mg/dl,the test may not accurately detect significant hypoglycemia,and testing in the Laboratory should be considered if clinically indicated. POC Performer [phone] [facility] Blood 02/27/2025 4:20 AM CDT 02/27/2025 4:20 AM CDT Maryjo Deshpande MD LAB POCT ORDERABLES - DEVICE Final Result [facility] [address] Department [place] [address] * (ABNORMAL) eGFR (02/27/2025 2:48 AM CDT) [facility] eGFR 27(L) >=60 mL/min/1. 73 m2 [...] LAB BLOOD ORDERABLES Final R esult [facility] [address] Department [place] [address] * (ABNORMAL) Pro B-type natriuretic [...] well as advanced age. - References: 1. Dawsno OROURKE et.al. Eur Heart J. 2006:27:330-337. 2. Uche RW, Gabriella LEUNG. J. AM Jacque Cardiol: Cardiovasc Imag. 2009;2: 216- 225. Interpretive Data Last Revised Date: 2018. Blood 02/27/2025 2:48 AM CDT 02/27/2025 3:04 AM CDT Rehana Shipley DO LAB BLOOD ORDERABLES F inal Result Performing Organization Address [facility] Co de Phone Number [facility] [address] [place] [address] * (ABNORMAL) Calcium, ionized (02/27/2025 2:48 AM CDT) Pathologist [facility] Calcium, Ionized 4.32(L) 4.50 - 5.10 mg/dL Blood 02/27/2025 2:48 AM CDT 02/27/2025 3:02 AM CDT Maryjo Deshpande MD LAB BLOOD ORDERABLES Final R esult Performing Organization Address [facility] Co de Phone Number [facility] [address] Department [place] [address] * (ABNORMAL) CBC without differential (02/27/2025 2:48 AM CDT) WBC 16.19(H) 3.80 - 9.90 K/cumm Hgb 12.9(L) 13.0 - 17.5 g/dL [facility] Hct 42.0 38.9 - 50.3 % [facility] Plt 226 150 - 400 K/cumm [facility] MPV 13.0(H) 9.1 - 12.3 fL [facility] RBC 4.48 4.30 - 5.80 M/cumm [facility] MCV 93.8 81.3 - 96.4 fL [facility] MCH 28.8 27.1 - 33.3 pg [facility] MCHC 30.7(L) 32.3 - 35.7 g/dL [facility] RDW CV 15.5(H) 11.1 - 14.9 % [facility] RDW SD 53.6(H) 35.7 - 48.1 fL [facility] NRBC abs 0.00 0.00 - 0.01 K/cumm [facility] Blood 02/27/2025 2:48 AM CDT 02/27/2025 3:04 AM CDT Maryjo Deshpande MD LAB BLOOD ORDERABLES Final R esult [facility] [address] [place] [address] * (ABNORMAL) Magnesium (02/27/2025 2:48 AM CDT) [facility] Magnesium 2.8(H) 1.4 - 2.5 mg/dL Blood 02/27/2025 2:48 AM CDT 02/27/2025 3:04 AM CDT Maryjo Deshpande MD LAB BLOOD ORDERABLES Final R esult Performing Organization Address City/[facility]/ZIP Co de Phone Number [facility] [address] [place], [place] [phone] * (ABNORMAL) Renal function panel (02/27/2025 2:48 AM CDT) Sodium 142 135 - 145 mmol/L Potassium, pl 3.8 3.3 - 4.9 mmol/L [facility] Chloride 100 97 - 110 mmol/L [facility] CO2 21(L) 22 - 32 mmol/L [facility] Anion gap 21(H) 2 - 15 mmol/L [facility] BUN 77(H) 6 - 25 mg/dL [facility] Creatinine 2.45(H) 0.80 - 1.30 mg/dL [facility] Glucose 210(H) 70 - 199 mg/dL [facility] Comment: Interpretive Data Fasting glucose >/= [...] 2022. Calcium 8.3(L) 8.5 - 10.3 mg/dL [facility] Phosphorus, pl 4.6(H) 2.3 - 4.5 mg/dL [facility] Albumin 2.8(L) 3.5 - 5.0 g/dL [facility] Blood 02/27/2025 2:48 AM CDT 02/27/2025 3:04 AM CDT us Maryjo Deshpande MD LAB BLOOD ORDERABLES Final R esult Performing Organization Address City/[facility]/ZIP Co de Phone Number [facility] [address] [address] * (ABNORMAL) POCT glucose (02/27/2025 12:46 AM CDT) [facility] Signature Glucose, POC 202(H) 70 - 199 mg/dL Comment: For Glucose values <35 mg/dl when Hematocrit is >60 mg/dl,the test may not accurately detect significant hypoglycemia,and testing in the Laboratory should be considered if clinically indicated. POC Performer [phone] [facility] Blood 02/27/2025 12:4 6 AM CDT 02/27/2025 12:46 AM CDT Maryjo Deshpande MD LAB POCT ORDERABLES - DEVICE Final Result Performing Organization Address City/[facility]/ZIP Co de Phone Number [facility] [address] [place], [place] [phone] * POCT glucose (02/26/2025 8:38 PM CDT) Glucose, POC 192 70 - 199 mg/dL Comment: For Glucose values <35 mg/dl when Hematocrit is >60 mg/dl,the test may not accurately detect significant hypoglycemia,and testing in the Laboratory should be considered if clinically indicated. POC Performer [id number] [facility] Blood 02/26/2025 8:38 PM CDT 02/26/2025 8:38 PM CDT Maryjo Deshpande MD LAB POCT ORDERABLES - DEVICE Final Result Performing Organization Address [facility] Co de Phone Number [facility] [address] [place] [address] * POCT glucose (02/26/2025 3:58 PM CDT) Glucose, POC 143 70 - 199 mg/dL Comment: For Glucose values <35 mg/dl when Hematocrit is >60 mg/dl,the test may not accurately detect significant hypoglycemia,and testing in the Laboratory should be considered if clinically indicated. POC Performer [id number] [facility] Blood 02/26/2025 3:58 PM CDT 02/26/2025 3:58 PM CDT Maryjo Deshpande MD LAB POCT ORDERABLES - DEVICE Final Result Performing Organization Address City/[facility] Co de Phone Number [facility] [address] Department [place] [address] * (ABNORMAL) POCT glucose (02/26/2025 11:53 AM CDT) Glucose, POC 216(H) 70 - 199 mg/dL Comment: For Glucose values <35 mg/dl when Hematocrit is >60 mg/dl,the test may not accurately detect significant hypoglycemia,and testing in the Laboratory should be considered if clinically indicated. POC Performer [id number] [facility] Blood 02/26/2025 11:5 3 AM CDT 02/26/2025 11:53 AM CDT Maryjo Deshpande MD LAB POCT ORDERABLES - DEVICE Final Result Performing Organization Address [facility] Co de Phone Number [facility] [address] [facility] [place] [address] * (ABNORMAL) POCT glucose (02/26/2025 9:04 AM CDT) Glucose, POC 214(H) 70 - 199 mg/dL Comment: For Glucose values <35 mg/dl when Hematocrit is >60 mg/dl,the test may not accurately detect significant hypoglycemia,and testing in the Laboratory should be considered if clinically indicated. POC Performer [id number] [facility] Blood 02/26/2025 9:04 AM CDT 02/26/2025 9:04 AM CDT us Maryjo Deshpande MD LAB POCT ORDERABLES - DEVICE Final Result Performing Organization Address [facility] de Phone Number [facility] [address] [facility] [address] * (ABNORMAL) POCT glucose (02/26/2025 5:11 AM CDT) Glucose, POC 216(H) 70 - 199 mg/dL Comment: For Glucose values <35 mg/dl when Hematocrit is >60 mg/dl,the test may not accurately detect significant hypoglycemia,and testing in the Laboratory should be considered if clinically indicated. POC Performer [phone] [facility] Blood 02/26/2025 5:11 AM CDT 02/26/2025 5:11 AM CDT Maryjo Deshpande MD LAB POCT ORDERABLES - DEVICE Final Result Performing Organization Address [facility] Co de Phone Number [facility] [address] [place] [address] * XR Chest 1 View (02/26/2025 3:38 AM CDT) Anatomical Region Laterality Modality Body, Chest N/A Computed Radiogr aphy 02/26/2025 8:03 AM CDT Impressions 02/26/2025 8:03 AM CDT [place] and 02/25/2025 3:59 AM. Median sternotomy wires [...] - 02/26/2025 EXAMINATION: Chest 1 view IMPRESSION: [place] and 02/25/2025 3:59 AM. Median sternotomy wires [...] MD LAB BLOOD ORDERABLES Final R esult [facility] [address] Department [place] [address] * (ABNORMAL) CBC without differential (02/26/2025 3:04 AM CDT) WBC 16.74(H) 3.80 - 9.90 K/cumm Hgb 13.0 13.0 - 17.5 g/dL [facility] Hct 42.3 38.9 - 50.3 % [facility] Plt 211 150 - 400 K/cumm [facility] MPV 12.7(H) 9.1 - 12.3 fL [facility] RBC 4.53 4.30 - 5.80 M/cumm [facility] MCV 93.4 81.3 - 96.4 fL [facility] MCH 28.7 27.1 - 33.3 pg [facility] MCHC 30.7(L) 32.3 - 35.7 g/dL [facility] RDW CV 15.4(H) 11.1 - 14.9 % [facility] RDW SD 53.1(H) 35.7 - 48.1 fL [facility] NRBC abs 0.00 0.00 - 0.01 K/cumm [facility] Blood 02/26/2025 3:04 AM CDT 02/26/2025 3:24 AM CDT Maryjo Deshpande MD LAB BLOOD ORDERABLES Final R esult Performing Organization Address City/[facility]/ZIP Co de Phone Number [facility] [address] Department [place] [place] [address] * (ABNORMAL) Magnesium (02/26/2025 3:04 AM CDT) Magnesium 2.7(H) 1.4 - 2.5 mg/dL Comment:Reviewed Blood 02/26/2025 3:04 AM CDT 02/26/2025 3:24 AM CDT Maryjo Deshpande MD LAB BLOOD ORDERABLES Final R esult Performing Organization Address [facility] Co de Phone Number [facility] [address] [employer] [address] * (ABNORMAL) Renal function panel (02/26/2025 3:04 AM CDT) Pathologist [facility] Sodium 142 135 - 145 mmol/L Potassium, pl 4.0 3.3 - 4.9 mmol/L [facility] Chloride 103 97 - 110 mmol/L [facility] CO2 23 22 - 32 mmol/L [facility] Anion gap 16(H) 2 - 15 mmol/L [facility] BUN 61(H) 6 - 25 mg/dL [facility] Creatinine 2.06(H) 0.80 - 1.30 mg/dL [facility] Glucose 233(H) 70 - 199 mg/dL [facility] Comment: Interpretive Data Fasting glucose >/= [...] 2022. Calcium 8.4(L) 8.5 - 10.3 mg/dL [facility] Phosphorus, pl 3.8 2.3 - 4.5 mg/dL [facility] Albumin 2.9(L) 3.5 - 5.0 g/dL [facility] Blood 02/26/2025 3:04 AM CDT 02/26/2025 3:24 AM CDT Maryjo Deshpande MD LAB BLOOD ORDERABLES Final R esult Performing Organization Address City/[facility]/ZIP Co de Phone Number [facility] [address] [place] [address] * (ABNORMAL) POCT glucose (02/26/2025 1:30 AM CDT) Glucose, POC 257(H) 70 - 199 mg/dL Comment: For Glucose values <35 mg/dl when Hematocrit is >60 mg/dl,the test may not accurately detect significant hypoglycemia,and testing in the Laboratory should be considered if clinically indicated. POC Performer [phone] [facility] Blood 02/26/2025 1:30 AM CDT 02/26/2025 1:30 AM CDT Maryjo Deshpande MD LAB POCT ORDERABLES - DEVICE Final Result Performing Organization Address [facility]/ZIP Co de Phone Number [facility] [address] [place], [place] [phone] * (ABNORMAL) POCT glucose (02/25/2025 9:39 PM CDT) Glucose, POC 226(H) 70 - 199 mg/dL Comment: For Glucose values <35 mg/dl when Hematocrit is >60 mg/dl,the test may not accurately detect significant hypoglycemia,and testing in the Laboratory should be considered if clinically indicated. POC Performer [id number] [facility] Blood 02/25/2025 9:39 PM CDT 02/25/2025 9:39 PM CDT Maryjo Deshpande MD LAB POCT ORDERABLES - DEVICE Final Result Performing Organization Address [facility] de Phone Number [facility] [address] Department of [employer] [place], [place] [id number] * Potassium (02/25/2025 4:02 PM CDT) [facility] Potassium, pl 4.0 3.3 - 4.9 mmol/L Comment:Hemolyzed; potassium value may be falsely elevated by as much as 0.6 - 1.0 mmol/L. Suggest redraw and reanalysis Blood 02/25/2025 4:02 PM CDT 02/25/2025 4:12 PM CDT Maryjo Deshpande MD LAB BLOOD ORDERABLES Final R esult Performing Organization Address [facility] Co de Phone Number [facility] [address] Department of [employer] [place], [place] [id number] * Magnesium (02/25/2025 4:02 PM CDT) [facility] Magnesium 2.1 1.4 - 2.5 mg/dL Blood 02/25/2025 4:02 PM CDT 02/25/2025 4:12 PM CDT Maryjo Deshpande MD LAB BLOOD ORDERABLES Final R esult Performing Organization Address [facility] de Phone Number [facility] [address] Department [employer] [place], [place] [phone] * (ABNORMAL) POCT glucose (02/25/2025 3:50 PM CDT) [facility] Glucose, POC 226(H) 70 - 199 mg/dL Comment: For Glucose values <35 mg/dl when Hematocrit is >60 mg/dl,the test may not accurately detect significant hypoglycemia,and testing in the Laboratory should be considered if clinically indicated. POC Performer [id number] [facility] Blood 02/25/2025 3:50 PM CDT 02/25/2025 3:50 PM CDT Maryjo Deshpande MD LAB POCT ORDERABLES - DEVICE Final Result Performing Organization Address [facility] Co de Phone Number [facility] [address] Department of Laboratories [place], [place] [phone] * (ABNORMAL) POCT glucose (02/25/2025 11:32 AM CDT) [facility] Glucose, POC 221(H) 70 - 199 mg/dL Comment: For Glucose values <35 mg/dl when Hematocrit is >60 mg/dl,the test may not accurately detect significant hypoglycemia,and testing in the Laboratory should be considered if clinically indicated. POC Performer [id number] [facility] Blood 02/25/2025 11:3 2 AM CDT 02/25/2025 11:32 AM CDT Maryjo Deshpande MD LAB POCT ORDERABLES - DEVICE Final Result Performing Organization Address [facility] Co de Phone Number [facility] [address] Department [place] [address] * TRANSTHORACIC ECHO (TTE) LIMITED/FOLLOW UP W LTD DOPPLER/CF W CONTRAST (02/25/2025 10:45 AM CDT) [facility] Estimated EF 15-20 % CONS SCIMAGE Anatomical Region Laterality Modality Ultrasound 02/25/2025 8:41 AM CDT Narrative 02/25/2025 4:25 PM CDT [facility] [address] [place] [address] LIMITED ECHOCARDIOGRAM Patient Name: MAURICIO HEADLEY : 1955 (70y ) Gender: M Study Date: 02/25/2025 08:41:23 AM Ht(Inch): 67 Wt(Lb): 171.96 BSA: 1.92 Lead Cashier: YUMIKO Location: [id number] Order Provider: MARYJO DESHPANDE BMI: 26.93 BP: [...] size. Electronically Signed By: Jb Henning MD [facility] 02/25/2025 4:24:30 PM CDT Procedure Note Jb Henning MD - 02/25/2025 [place] [address] [place] [address] LIMITED ECHOCARDIOGRAM Patient Name: MAURICIO HEADLEY : 1955 (70y ) Gender: M Study Date: 02/25/2025 08:41:23 AM Ht(Inch): 67 Wt(Lb): 171.96 BSA: 1.92 Lead Cashier: YUMIKO Location: [id number] Order Provider: MARYJO DESHPANDE BMI: 26.93 BP: [...] size. Electronically Signed By: Jb Henning MD [facility] 02/25/2025 4:24:30 PM CDT us Maryjo Deshpande MD CV ECHO PROCEDURES Final Res ult * (ABNORMAL) POCT glucose (02/25/2025 7:35 AM CDT) Glucose, POC 245(H) 70 - 199 mg/dL Comment: For Glucose values <35 mg/dl when Hematocrit is >60 mg/dl,the test may not accurately detect significant hypoglycemia,and testing in the Laboratory should be considered if clinically indicated. POC Performer [id number] [facility] Blood 02/25/2025 7:35 AM CDT 02/25/2025 7:35 AM CDT Maryjo Deshpande MD LAB POCT ORDERABLES - DEVICE Final Result Performing Organization Address [facility] de Phone Number [facility] [address] [place] [place], [place] [phone] * POCT glucose (02/25/2025 4:21 AM CDT) Glucose, POC 192 70 - 199 mg/dL Comment: For Glucose values <35 mg/dl when Hematocrit is >60 mg/dl,the test may not accurately detect significant hypoglycemia,and testing in the Laboratory should be considered if clinically indicated. POC Performer [phone] [facility] Blood 02/25/2025 4:21 AM CDT 02/25/2025 4:21 AM CDT Maryjo Deshpande MD LAB POCT ORDERABLES - DEVICE Final Result Performing Organization Address [facility] Co de Phone Number [facility] [address] [place] [address] * XR Chest 1 View (02/25/2025 4:17 AM CDT) Anatomical Region Laterality Modality Body, Chest N/A Computed Radiogr aphy 02/25/2025 8:47 AM CDT Impressions 02/25/2025 8:47 AM CDT Comparison is made to 02/24/2025. The endotracheal tube tip is located 2.7 cm above the marisela. Nasogastric tube tip located with diaphragm, not included [id number]. Mediastinal wires unchanged in position. There is [...] tube tip located with diaphragm, not included [id number]. Mediastinal wires unchanged in position. There is [...] ORDERABLES Final R esult Performing Organization Address [facility] [facility] Co de Phone Number [facility] [address] [place] [address] * (ABNORMAL) CBC without differential (02/25/2025 3:40 AM CDT) WBC 15.79(H) 3.80 - 9.90 K/cumm Hgb 11.4(L) 13.0 - 17.5 g/dL [facility] Hct 36.7(L) 38.9 - 50.3 % [facility] Plt 189 150 - 400 K/cumm [facility] MPV 12.4(H) 9.1 - 12.3 fL [facility] RBC 3.95(L) 4.30 - 5.80 M/cumm [facility] MCV 92.9 81.3 - 96.4 fL [facility] MCH 28.9 27.1 - 33.3 pg [facility] MCHC 31.1(L) 32.3 - 35.7 g/dL [facility] RDW CV 15.3(H) 11.1 - 14.9 % [facility] RDW SD 53.0(H) 35.7 - 48.1 fL [facility] NRBC abs 0.00 0.00 - 0.01 K/cumm [facility] Blood 02/25/2025 3:40 AM CDT 02/25/2025 3:44 AM CDT Maryjo Deshpande MD LAB BLOOD ORDERABLES Final R esult Performing Organization Address City/[facility]/ZIP Co de Phone Number [facility] [address] [facility] [place] [address] * Magnesium (02/25/2025 3:40 AM CDT) Magnesium 2.5 1.4 - 2.5 mg/dL Blood 02/25/2025 3:40 AM CDT 02/25/2025 3:44 AM CDT Maryjo Deshpande MD LAB BLOOD ORDERABLES Final R esult [facility] [address] Department [place] [address] * (ABNORMAL) Renal function panel (02/25/2025 3:40 AM CDT) Pathologist [facility] Sodium 136 135 - 145 mmol/L Potassium, pl 3.1(L) 3.3 - 4.9 mmol/L [facility] Chloride 98 97 - 110 mmol/L [facility] CO2 21(L) 22 - 32 mmol/L [facility] Anion gap 17(H) 2 - 15 mmol/L [facility] BUN 54(H) 6 - 25 mg/dL [facility] Creatinine 1.75(H) 0.80 - 1.30 mg/dL [facility] Glucose 249(H) 70 - 199 mg/dL [facility] Comment: Interpretive Data Fasting glucose >/= [...] 2022. Calcium 7.6(L) 8.5 - 10.3 mg/dL [facility] Phosphorus, pl 3.4 2.3 - 4.5 mg/dL [facility] Albumin 2.5(L) 3.5 - 5.0 g/dL [facility] Blood 02/25/2025 3:40 AM CDT 02/25/2025 3:44 AM CDT Maryjo Deshpande MD LAB BLOOD ORDERABLES Final R esult Performing Organization Address [facility] Co de Phone Number [facility] [address] [place] [address] * (ABNORMAL) POCT glucose (02/25/2025 12:17 AM CDT) Glucose, POC 208(H) 70 - 199 mg/dL Comment: For Glucose values <35 mg/dl when Hematocrit is >60 mg/dl,the test may not accurately detect significant hypoglycemia,and testing in the Laboratory should be considered if clinically indicated. POC Performer [id number] [facility] Blood 02/25/2025 12:1 7 AM CDT 02/25/2025 12:17 AM CDT Maryjo Deshpande MD LAB POCT ORDERABLES - DEVICE Final Result Performing Organization Address [facility] de Phone Number [facility] [address] [facility] [place] [address] * (ABNORMAL) POCT glucose (02/24/2025 7:49 PM CDT) Glucose, POC 244(H) 70 - 199 mg/dL Comment: For Glucose values <35 mg/dl when Hematocrit is >60 mg/dl,the test may not accurately detect significant hypoglycemia,and testing in the Laboratory should be considered if clinically indicated. POC Performer [phone] [facility] Blood 02/24/2025 7:49 PM CDT 02/24/2025 7:49 PM CDT Maryjo Deshpande MD LAB POCT ORDERABLES - DEVICE Final Result Performing Organization Address [facility] Co de Phone Number [facility] [address] Department [employer] [place], [place] [id number] * (ABNORMAL) POCT glucose (02/24/2025 3:21 PM CDT) Glucose, POC 227(H) 70 - 199 mg/dL Comment: For Glucose values <35 mg/dl when Hematocrit is >60 mg/dl,the test may not accurately detect significant hypoglycemia,and testing in the Laboratory should be considered if clinically indicated. POC Performer [id number] [facility] Blood 02/24/2025 3:21 PM CDT 02/24/2025 3:21 PM CDT us Maryjo Deshpande MD LAB POCT ORDERABLES - DEVICE Final Result Performing Organization Address [facility]/ZIP Co de Phone Number [facility] [address] [place] [address] * Potassium (02/24/2025 1:17 PM CDT) [facility] Potassium, pl 3.7 3.3 - 4.9 mmol/L Comment:Hemolyzed; potassium value may be falsely elevated by as much as 0.3 - 0.5 mmol/L. Suggest redraw and reanalysis Blood 02/24/2025 1:17 PM CDT 02/24/2025 1:31 PM CDT Narrative [facility] - 02/24/2025 1:50 PM CDT Draw 4 hours after second potassium chloride dose completed. us Teodoro Nassar MD LAB BLOOD ORDERABLES Final R esult Performing Organization Address City/[facility]/ZIP Co de Phone Number [facility] [address] [place] [address] * POCT glucose (02/24/2025 11:35 AM CDT) Glucose, POC 196 70 - 199 mg/dL Comment: For Glucose values <35 mg/dl when Hematocrit is >60 mg/dl,the test may not accurately detect significant hypoglycemia,and testing in the Laboratory should be considered if clinically indicated. POC Performer [id number] [facility] Blood 02/24/2025 11:3 5 AM CDT 02/24/2025 11:35 AM CDT Maryjo Deshpande MD LAB POCT ORDERABLES - DEVICE Final Result Performing Organization Address [facility] Co de Phone Number [facility] [address] [facility] [place] [address] * (ABNORMAL) POCT glucose (02/24/2025 7:19 AM CDT) Glucose, POC 233(H) 70 - 199 mg/dL Comment: For Glucose values <35 mg/dl when Hematocrit is >60 mg/dl,the test may not accurately detect significant hypoglycemia,and testing in the Laboratory should be considered if clinically indicated. POC Performer [phone] [facility] Blood 02/24/2025 7:19 AM CDT 02/24/2025 7:19 AM CDT Maryjo Deshpande MD LAB POCT ORDERABLES - DEVICE Final Result Performing Organization Address [facility] de Phone Number [facility] [address] [facility] [place] [address] * (ABNORMAL) POCT glucose (02/24/2025 4:23 AM CDT) Glucose, POC 250(H) 70 - 199 mg/dL Comment: For Glucose values <35 mg/dl when Hematocrit is >60 mg/dl,the test may not accurately detect significant hypoglycemia,and testing in the Laboratory should be considered if clinically indicated. POC Performer [id number] [facility] Blood 02/24/2025 4:23 AM CDT 02/24/2025 4:23 AM CDT Maryjo Deshpande MD LAB POCT ORDERABLES - DEVICE Final Result Performing Organization Address [facility] de Phone Number [facility] [address] Department [place] [address] * XR Chest 1 View (02/24/2025 3:59 [...] MD LAB BLOOD ORDERABLES Final R esult [facility] [address] Department of Laboratories [place], [place] [id number] * (ABNORMAL) CBC without differential (02/24/2025 3:27 AM CDT) WBC 14.37(H) 3.80 - 9.90 K/cumm Hgb 12.7(L) 13.0 - 17.5 g/dL [facility] Hct 42.1 38.9 - 50.3 % [facility] Plt 189 150 - 400 K/cumm [facility] MPV 11.8 9.1 - 12.3 fL [facility] RBC 4.37 4.30 - 5.80 M/cumm [facility] MCV 96.3 81.3 - 96.4 fL [facility] MCH 29.1 27.1 - 33.3 pg [facility] MCHC 30.2(L) 32.3 - 35.7 g/dL [facility] RDW CV 15.5(H) 11.1 - 14.9 % [facility] RDW SD 55.8(H) 35.7 - 48.1 fL [facility] NRBC abs 0.00 0.00 - 0.01 K/cumm [facility] Blood 02/24/2025 3:27 AM CDT 02/24/2025 3:38 AM CDT Maryjo Deshpande MD LAB BLOOD ORDERABLES Final R esult Performing Organization Address City/[facility]/ZIP Co de Phone Number [facility] [address] [place] [address] * (ABNORMAL) Magnesium (02/24/2025 3:27 AM CDT) Pathologist [facility] Magnesium 2.6(H) 1.4 - 2.5 mg/dL Blood 02/24/2025 3:27 AM CDT 02/24/2025 3:39 AM CDT Maryjo Deshpande MD LAB BLOOD ORDERABLES Final R esult Performing Organization Address [facility] Co de Phone Number [facility] [address] [place] [address] * (ABNORMAL) Renal function panel (02/24/2025 3:27 AM CDT) Pathologist [facility] Sodium 145 135 - 145 mmol/L Potassium, pl 3.0(L) 3.3 - 4.9 mmol/L [facility] Chloride 103 97 - 110 mmol/L [facility] CO2 23 22 - 32 mmol/L [facility] Anion gap 19(H) 2 - 15 mmol/L [facility] BUN 60(H) 6 - 25 mg/dL [facility] Creatinine 1.90(H) 0.80 - 1.30 mg/dL [facility] Glucose 229(H) 70 - 199 mg/dL [facility] Comment: Interpretive Data Fasting glucose >/= [...] 2022. Calcium 8.4(L) 8.5 - 10.3 mg/dL [facility] Phosphorus, pl 3.9 2.3 - 4.5 mg/dL [facility] Albumin 2.8(L) 3.5 - 5.0 g/dL [facility] Blood 02/24/2025 3:27 AM CDT 02/24/2025 3:39 AM CDT Maryjo Deshpande MD LAB BLOOD ORDERABLES Final R esult Performing Organization Address [facility]/ZIP Co de Phone Number [facility] [address] [place], [place] [id number] * (ABNORMAL) POCT glucose (02/24/2025 12:01 AM CDT) Glucose, POC 258(H) 70 - 199 mg/dL Comment: For Glucose values <35 mg/dl when Hematocrit is >60 mg/dl,the test may not accurately detect significant hypoglycemia,and testing in the Laboratory should be considered if clinically indicated. POC Performer [id number] [facility] Blood 02/24/2025 12:0 1 AM CDT 02/24/2025 12:01 AM CDT us Maryjo Deshpande MD LAB POCT ORDERABLES - DEVICE Final Result Performing Organization Address [facility]/ZIP Co de Phone Number [facility] [address] Department [place] [address] * (ABNORMAL) POCT glucose (02/23/2025 8:43 PM CDT) Glucose, POC 244(H) 70 - 199 mg/dL Comment: For Glucose values <35 mg/dl when Hematocrit is >60 mg/dl,the test may not accurately detect significant hypoglycemia,and testing in the Laboratory should be considered if clinically indicated. POC Performer [id number] [facility] Blood 02/23/2025 8:43 PM CDT 02/23/2025 8:43 PM CDT Maryjo Deshpande MD LAB POCT ORDERABLES - DEVICE Final Result Performing Organization Address City/[facility]/ZIP Co de Phone Number [facility] [address] [facility] [place] [address] * (ABNORMAL) POCT glucose (02/23/2025 4:22 PM CDT) Glucose, POC 225(H) 70 - 199 mg/dL Comment: For Glucose values <35 mg/dl when Hematocrit is >60 mg/dl,the test may not accurately detect significant hypoglycemia,and testing in the Laboratory should be considered if clinically indicated. POC Performer [id number] [facility] Blood 02/23/2025 4:22 PM CDT 02/23/2025 4:22 PM CDT us Maryjo Deshpande MD LAB POCT ORDERABLES - DEVICE Final Result Performing Organization Address [facility] Co de Phone Number [facility] [address] [facility] [employer] [place], [place] [id number] * POCT glucose (02/23/2025 12:28 PM CDT) Glucose, POC 195 70 - 199 mg/dL Comment: For Glucose values <35 mg/dl when Hematocrit is >60 mg/dl,the test may not accurately detect significant hypoglycemia,and testing in the Laboratory should be considered if clinically indicated. POC Performer [id number] [facility] Blood 02/23/2025 12:2 8 PM CDT 02/23/2025 12:28 PM CDT Maryjo Deshpande MD LAB POCT ORDERABLES - DEVICE Final Result Performing Organization Address City/[facility]/ZIP Co de Phone Number [facility] [address] Department [employer] [place], [place] [id number] * POCT glucose (02/23/2025 8:16 AM CDT) Glucose, POC 166 70 - 199 mg/dL Comment: For Glucose values <35 mg/dl when Hematocrit is >60 mg/dl,the test may not accurately detect significant hypoglycemia,and testing in the Laboratory should be considered if clinically indicated. POC Performer [id number] STEPHANIE [facility] Blood 02/23/2025 8:16 AM CDT 02/23/2025 8:16 AM CDT us Evgeny Villalba MD LAB POCT ORDERABLES - DEV ICE Final Result [facility] [address] Department [place] [address] * (ABNORMAL) eGFR (02/23/2025 4:10 AM CDT) [...] ORDERABLES Madhavi l Result Performing Organization Address [facility] Co de Phone Number [facility] [address] Department [place] [address] * (ABNORMAL) Pro B-type natriuretic peptide (02/23/2025 [...] ORDERABLES Madhavi l Result Performing Organization Address [facility]/ZIP Co de Phone Number [facility] [address] Department [place] [address] * Magnesium (02/23/2025 4:10 AM CDT) Pathologist [facility] Magnesium 2.5 1.4 - 2.5 mg/dL Blood 02/23/2025 4:10 AM CDT 02/23/2025 4:19 AM CDT Evgeny Villalba MD LAB BLOOD ORDERABLES Madhavi l Result [facility] [address] [place] [address] * (ABNORMAL) Basic metabolic panel (02/23/2025 4:10 AM CDT) Pathologist [facility] Sodium 151(H) 135 - 145 mmol/L Potassium, pl 3.8 3.3 - 4.9 mmol/L [facility] Chloride 109 97 - 110 mmol/L [facility] CO2 24 22 - 32 mmol/L [facility] Anion gap 18(H) 2 - 15 mmol/L [facility] BUN 56(H) 6 - 25 mg/dL [facility] Creatinine 1.68(H) 0.80 - 1.30 mg/dL [facility] Glucose 159 70 - 199 mg/dL [facility] Comment: Interpretive Data Fasting glucose >/= [...] 2022. Calcium 8.6 8.5 - 10.3 mg/dL [facility] Blood 02/23/2025 4:10 AM CDT 02/23/2025 4:19 AM CDT Evgeny Villalba MD LAB BLOOD ORDERABLES Madhavi l Result Performing Organization Address [facility] Co de Phone Number [facility] [address] Department [place] [address] * POCT glucose (02/23/2025 3:59 AM CDT) Glucose, POC 138 70 - 199 mg/dL Comment: For Glucose values <35 mg/dl when Hematocrit is >60 mg/dl,the test may not accurately detect significant hypoglycemia,and testing in the Laboratory should be considered if clinically indicated. POC Performer [id number] [facility] Blood 02/23/2025 3:59 AM CDT 02/23/2025 3:59 AM CDT Evgeny Villalba MD LAB POCT ORDERABLES - DEV ICE Final Result Performing Organization Address [facility] de Phone Number [facility] [address] Department [place] [address] * POCT glucose (02/22/2025 11:31 PM CDT) Glucose, POC 127 70 - 199 mg/dL Comment: For Glucose values <35 mg/dl when Hematocrit is >60 mg/dl,the test may not accurately detect significant hypoglycemia,and testing in the Laboratory should be considered if clinically indicated. POC Performer [id number] [facility] Blood 02/22/2025 11:3 1 PM CDT 02/22/2025 11:31 PM CDT Evgeny Villalba MD LAB POCT ORDERABLES - DEV ICE Final Result Performing Organization Address [facility] Co de Phone Number [facility] [address] Department [place] [address] * (ABNORMAL) eGFR (02/22/2025 10:45 PM CDT) Pathologist [facility] eGFR 49(L) >=60 mL/min/1. 73 m2 Comment: [...] ORDERABLES Final R esult Performing Organization Address City/[facility]/ZIP Co de Phone Number STEPHANIE [facility] [address] [place], [place] [id number] * Magnesium (02/22/2025 10:45 PM CDT) [facility] Magnesium 2.5 1.4 - 2.5 mg/dL Blood 02/22/2025 10:4 5 PM CDT 02/22/2025 11:07 PM CDT Teodoro Nassar MD LAB BLOOD ORDERABLES Final R esult Performing Organization Address City/[facility]/ZIP Co de Phone Number [facility] [address] Department [place] [address] * (ABNORMAL) Basic metabolic panel (02/22/2025 10:45 PM CDT) Sodium 153(H) 135 - 145 mmol/L Potassium, pl 3.5 3.3 - 4.9 mmol/L [facility] Chloride 109 97 - 110 mmol/L [facility] CO2 25 22 - 32 mmol/L [facility] Anion gap 19(H) 2 - 15 mmol/L [facility] BUN 53(H) 6 - 25 mg/dL [facility] Creatinine 1.51(H) 0.80 - 1.30 mg/dL [facility] Glucose 138 70 - 199 mg/dL [facility] Comment: Interpretive Data Fasting glucose >/= [...] 2022. Calcium 8.6 8.5 - 10.3 mg/dL [facility] Blood 02/22/2025 10:4 5 PM CDT 02/22/2025 11:07 PM CDT us Teodoro Nassar MD LAB BLOOD ORDERABLES Final R esult [facility] [address] Department [place] [address] * (ABNORMAL) POCT glucose (02/22/2025 8:04 PM CDT) [facility] Glucose, POC 201(H) 70 - 199 mg/dL Comment: For Glucose values <35 mg/dl when Hematocrit is >60 mg/dl,the test may not accurately detect significant hypoglycemia,and testing in the Laboratory should be considered if clinically indicated. POC Performer [id number] [facility] Blood 02/22/2025 8:04 PM CDT 02/22/2025 8:04 PM CDT Evgeny Villalba MD LAB POCT ORDERABLES - DEV ICE Final Result Performing Organization Address [facility]/ZIP Co de Phone Number [facility] [address] Department [place] [address] * (ABNORMAL) POCT glucose (02/22/2025 5:07 PM CDT) [facility] Signature Glucose, POC 288(H) 70 - 199 mg/dL Comment: For Glucose values <35 mg/dl when Hematocrit is >60 mg/dl,the test may not accurately detect significant hypoglycemia,and testing in the Laboratory should be considered if clinically indicated. POC Performer [id number] [facility] Blood 02/22/2025 5:07 PM CDT 02/22/2025 5:07 PM CDT Evgeny Villalba MD LAB POCT ORDERABLES - DEV ICE Final Result Performing Organization Address [facility] Co de Phone Number [facility] [address] Department [place] [address] * XR Kub (02/22/2025 4:30 PM CDT) [...] PCO2, Arterial 59(H) 35 - 45 mmHg [facility] PO2, Arterial 304(H) 83 - 108 mmHg [facility] HCO3 Art (Calculated) 28 20 - 30 mmol/L [facility] BE, art 0 mmol/L [facility] Comment: Interpretive Data No Reference Range Established Current Interpretive Data was last revised on 2017 O2 Sat Art (Calculated) 100(H) 94 - 98 % [facility] Blood 02/22/2025 3:34 PM CDT 02/22/2025 3:36 PM CDT us Evgeny Villalba MD LAB BLOOD ORDERABLES Madhavi l Result [facility] [address] [place] [address] * XR Chest 1 View (02/22/2025 3:12 [...] be considered if clinically indicated. POC Performer [id number] [facility] Blood 02/22/2025 11:5 6 AM CDT 02/22/2025 11:56 AM CDT Evgeny Villalba MD LAB POCT ORDERABLES - DEV ICE Final Result Performing Organization Address [facility] Co de Phone Number [facility] [address] [facility] [place] [address] * (ABNORMAL) POCT glucose (02/22/2025 7:14 AM CDT) Glucose, POC 232(H) 70 - 199 mg/dL Comment: For Glucose values <35 mg/dl when Hematocrit is >60 mg/dl,the test may not accurately detect significant hypoglycemia,and testing in the Laboratory should be considered if clinically indicated. POC Performer [id number] [facility] Blood 02/22/2025 7:14 AM CDT 02/22/2025 7:14 AM CDT Evgeny Villalba MD LAB POCT ORDERABLES - DEV ICE Final Result Performing Organization Address City/[facility]/ZIP Co de Phone Number [facility] [address] [facility] [place] [address] * (ABNORMAL) POCT glucose (02/22/2025 3:59 AM CDT) Glucose, POC 260(H) 70 - 199 mg/dL Comment: For Glucose values <35 mg/dl when Hematocrit is >60 mg/dl,the test may not accurately detect significant hypoglycemia,and testing in the Laboratory should be considered if clinically indicated. POC Performer [id number] [facility] Blood 02/22/2025 3:59 AM CDT 02/22/2025 3:59 AM CDT Evgeny Villalba MD LAB POCT ORDERABLES - DEV ICE Final Result STEPHANIE [facility] [address] Department [place] [address] * XR Chest 1 View (02/22/2025 3:33 [...] ORDERABLES Madhavi l Result Performing Organization Address [facility] Co de Phone Number [place] [phone] [place], [place] [phone] * Magnesium (02/22/2025 2:13 AM CDT) Pathologist [facility] Magnesium 2.4 1.4 - 2.5 mg/dL Blood 02/22/2025 2:13 AM CDT 02/22/2025 2:19 AM CDT Evgeny Villalba MD LAB BLOOD ORDERABLES Madhavi l Result Performing Organization Address City/[facility]/ZIP Co de Phone Number [facility] [address] [place] [address] * (ABNORMAL) Basic metabolic panel (02/22/2025 2:13 AM CDT) Sodium 151(H) 135 - 145 mmol/L Potassium, pl 4.4 3.3 - 4.9 mmol/L [facility] Chloride 112(H) 97 - 110 mmol/L [facility] CO2 25 22 - 32 mmol/L [facility] Anion gap 14 2 - 15 mmol/L [facility] BUN 44(H) 6 - 25 mg/dL [facility] Creatinine 1.20 0.80 - 1.30 mg/dL [facility] Glucose 256(H) 70 - 199 mg/dL [facility] Comment: Interpretive Data Fasting glucose >/= [...] 2022. Calcium 8.6 8.5 - 10.3 mg/dL [facility] Blood 02/22/2025 2:13 AM CDT 02/22/2025 2:19 AM CDT us Evgeny Villalba MD LAB BLOOD ORDERABLES Madhavi de luna Result [facility] [address] Department [place] [address] * (ABNORMAL) POCT glucose (02/21/2025 11:38 PM CDT) Pathologist [facility] Glucose, POC 229(H) 70 - 199 mg/dL Comment: For Glucose values <35 mg/dl when Hematocrit is >60 mg/dl,the test may not accurately detect significant hypoglycemia,and testing in the Laboratory should be considered if clinically indicated. POC Performer [id number] [facility] Blood 02/21/2025 11:3 8 PM CDT 02/21/2025 11:38 PM CDT Evgeny Villalba MD LAB POCT ORDERABLES - DEV ICE Final Result [facility] [address] [facility] [place] [place] [address] * (ABNORMAL) POCT glucose (02/21/2025 7:44 PM CDT) Glucose, POC 283(H) 70 - 199 mg/dL Comment: For Glucose values <35 mg/dl when Hematocrit is >60 mg/dl,the test may not accurately detect significant hypoglycemia,and testing in the Laboratory should be considered if clinically indicated. POC Performer [id number] [facility] Blood 02/21/2025 7:44 PM CDT 02/21/2025 7:44 PM CDT Evgeny Villalba MD LAB POCT ORDERABLES - DEV ICE Final Result Performing Organization Address [facility] Co de Phone Number [facility] [address] [facility] [employer] [place], [place] [phone] * (ABNORMAL) POCT glucose (02/21/2025 3:52 PM CDT) Glucose, POC 240(H) 70 - 199 mg/dL Comment: For Glucose values <35 mg/dl when Hematocrit is >60 mg/dl,the test may not accurately detect significant hypoglycemia,and testing in the Laboratory should be considered if clinically indicated. POC Performer [phone] [facility] Blood 02/21/2025 3:52 PM CDT 02/21/2025 3:52 PM CDT Evgeny Villalba MD LAB POCT ORDERABLES - DEV ICE Final Result Performing Organization Address City/[facility]/ZIP Co de Phone Number [facility] [address] [facility] [place] [address] * (ABNORMAL) POCT glucose (02/21/2025 11:17 AM CDT) Glucose, POC 217(H) 70 - 199 mg/dL Comment: For Glucose values <35 mg/dl when Hematocrit is >60 mg/dl,the test may not accurately detect significant hypoglycemia,and testing in the Laboratory should be considered if clinically indicated. POC Performer [phone] [facility] Blood 02/21/2025 11:1 7 AM CDT 02/21/2025 11:17 AM CDT Evgeny Villalba MD LAB POCT ORDERABLES - DEV ICE Final Result Performing Organization Address [facility] Co de Phone Number [facility] [address] [facility] [place] [place] [address] * (ABNORMAL) POCT glucose (02/21/2025 7:24 AM CDT) Glucose, POC 216(H) 70 - 199 mg/dL Comment: For Glucose values <35 mg/dl when Hematocrit is >60 mg/dl,the test may not accurately detect significant hypoglycemia,and testing in the Laboratory should be considered if clinically indicated. POC Performer [phone] [facility] Blood 02/21/2025 7:24 AM CDT 02/21/2025 7:24 AM CDT Evgeny Villalba MD LAB POCT ORDERABLES - DEV ICE Final Result Performing Organization Address City/[facility]/ZIP Co de Phone Number [facility] [address] [facility] [place] [place] [address] * Magnesium - Add on lab test (02/21/2025 5:14 AM CDT) Acceptable Yes Blood 02/21/2025 5:14 AM CDT 02/21/2025 5:14 AM CDT Narrative [facility] - 02/21/2025 5:16 AM CDT Name of Test->Magnesium Luis M Vasquez MD LAB BLOOD ORDERABLES Final Result [facility] [address] [facility] [place] [address] * BMP - Add on lab test (02/21/2025 5:14 AM CDT) Acceptable No Blood 02/21/2025 5:14 AM CDT 02/21/2025 5:14 AM CDT [facility] 02/21/2025 5:16 AM CDT Name of Test->BMP Luis M Vasquez MD LAB BLOOD ORDERABLES Final Result Performing Organization Address [facility] Co de Phone Number [facility] [address] [facility] [place] [address] * XR Chest 1 View (02/21/2025 4:31 AM CDT) Anatomical Region Laterality Modality Body, Chest N/A Computed Radiogr aphy 02/21/2025 4:45 AM CDT Impressions 02/21/2025 4:45 AM CDT Endotracheal tube tip is 2.5 cm above the marisela. Gastric tube courses below the diaphragm and tip projects below the [id number]. Median sternotomy wires are unchanged. Stable small [...] the diaphragm and tip projects below the [id number]. Median sternotomy wires are unchanged. Stable small [...] LAB BLOOD ORDERABLES F inal Result [facility] [address] Department [place] [address] * (ABNORMAL) eGFR (02/21/2025 3:13 AM CDT) [...] DO LAB BLOOD ORDERABLES F inal Result [facility] [address] Department [place] [address] * (ABNORMAL) Differential, auto (02/21/2025 3:13 AM CDT) Neutrophil abs 9.98(H) 1.50 - 6.50 K/cumm Imm gran abs 0.10 0.00 - 0.10 K/cumm [facility] Lymphocyte abs 1.65 0.80 - 3.30 K/cumm [facility] Monocyte abs 1.38(H) 0.20 - 0.80 K/cumm [facility] Eosinophil abs 0.01 0.00 - 0.50 K/cumm [facility] Basophil abs 0.04 0.00 - 0.10 K/cumm [facility] Neutrophil pct 75.8 % [facility] Comment: Interpretive Data Percent cell count reference ranges are not reported, since discordance with absolute values may lead to misinterpretation of CBC data. Current Interpretive Data was last revised on 2018. Imm gran pct 0.8 % [facility] Comment: Interpretive Data Percent cell count reference ranges are not reported, since discordance with absolute values may lead to misinterpretation of CBC data. Current Interpretive Data was last revised on 2018. Lymphocyte pct 12.5 % [facility] Comment: Interpretive Data Percent cell count reference ranges are not reported, since discordance with absolute values may lead to misinterpretation of CBC data. Current Interpretive Data was last revised on 2018. Monocyte pct 10.5 % [facility] Comment: Interpretive Data Percent cell count reference ranges are not reported, since discordance with absolute values may lead to misinterpretation of CBC data. Current Interpretive Data was last revised on 2018. Eosinophil pct 0.1 % [facility] Comment: Interpretive Data Percent cell count reference ranges are not reported, since discordance with absolute values may lead to misinterpretation of CBC data. Current Interpretive Data was last revised on 2018. Basophil pct 0.3 % [facility] Comment: Interpretive Data Percent cell count reference ranges are not reported, since discordance with absolute values may lead to misinterpretation of CBC data. Current Interpretive Data was last revised on 2018. Blood 02/21/2025 3:13 AM CDT 02/21/2025 3:56 AM CDT Rehana Mackeyjerzy DO LAB BLOOD ORDERABLES F inal Result Performing Organization Address City/[facility]/ZIP Co de Phone Number [facility] [address] [facility] [employer] [place], [place] [phone] * (ABNORMAL) Procalcitonin (02/21/2025 3:13 AM CDT) Pathologist [facility] Procalcitonin 1.03(H) <=0.25 ng/mL Blood 02/21/2025 3:13 AM CDT 02/21/2025 3:56 AM CDT Rehana Kaylan Mackeyjerzy DO LAB BLOOD ORDERABLES F inal Result Performing Organization Address City/[facility]/ZIP Co de Phone Number [facility] [address] [facility] [employer] [place], [place] [phone] * (ABNORMAL) CBC with auto differential (02/21/2025 3:13 AM CDT) WBC 13.16(H) 3.80 - 9.90 K/cumm Hgb 13.1 13.0 - 17.5 g/dL [facility] Hct 43.9 38.9 - 50.3 % [facility] Plt 176 150 - 400 K/cumm [facility] MPV 11.6 9.1 - 12.3 fL [facility] RBC 4.56 4.30 - 5.80 M/cumm [facility] MCV 96.3 81.3 - 96.4 fL [facility] MCH 28.7 27.1 - 33.3 pg [facility] MCHC 29.8(L) 32.3 - 35.7 g/dL [facility] RDW CV 15.9(H) 11.1 - 14.9 % [facility] RDW SD 56.6(H) 35.7 - 48.1 fL [facility] NRBC abs 0.00 0.00 - 0.01 K/cumm [facility] Blood 02/21/2025 3:13 AM CDT 02/21/2025 3:56 AM CDT Rehana Kaylan Barks DO LAB BLOOD ORDERABLES F inal Result Performing Organization Address City/[facility]/ZIP Co de Phone Number [facility] [address] Department [employer] [place], [place] [phone] * Phosphorus (02/21/2025 3:13 AM CDT) Phosphorus, pl 3.0 2.3 - 4.5 mg/dL Blood 02/21/2025 3:13 AM CDT 02/21/2025 3:56 AM CDT Rehana Kaylan [employer] DO LAB BLOOD ORDERABLES F inal Result Performing Organization Address [facility] Co de Phone Number [facility] [address] [place] [address] * Magnesium (02/21/2025 3:13 AM CDT) Magnesium 2.3 1.4 - 2.5 mg/dL Blood 02/21/2025 3:13 AM CDT 02/21/2025 3:56 AM CDT [employer] DO LAB BLOOD ORDERABLES F inal Result Performing Organization Address City/[facility]/ZIP Co de Phone Number [facility] [address] Department [employer] [place], [place] [phone] * (ABNORMAL) Comprehensive metabolic panel (02/21/2025 3:13 AM CDT) Sodium 147(H) 135 - 145 mmol/L Potassium, pl 4.1 3.3 - 4.9 mmol/L [facility] Chloride 111(H) 97 - 110 mmol/L [facility] CO2 23 22 - 32 mmol/L [facility] Anion gap 13 2 - 15 mmol/L [facility] BUN 37(H) 6 - 25 mg/dL [facility] Creatinine 1.37(H) 0.80 - 1.30 mg/dL [facility] Glucose 213(H) 70 - 199 mg/dL [facility] Comment: Interpretive Data Fasting glucose >/= [...] 2022. Calcium 8.3(L) 8.5 - 10.3 mg/dL [facility] Bilirubin, total 0.5 0.1 - 1.2 mg/dL [facility] Protein, pl 6.3(L) 6.5 - 8.5 g/dL [facility] Albumin 2.9(L) 3.5 - 5.0 g/dL [facility] Alk phos 82 40 - 130 Units/L [facility] ALT 8 7 - 55 Units/L [facility] AST 18 10 - 50 Units/L [facility] Blood 02/21/2025 3:13 AM CDT 02/21/2025 3:56 AM CDT us Rehana Shipley DO LAB BLOOD ORDERABLES F inal Result [facility] [address] [place] [address] * POCT glucose (02/21/2025 3:01 AM CDT) Glucose, POC 198 70 - 199 mg/dL Comment: For Glucose values <35 mg/dl when Hematocrit is >60 mg/dl,the test may not accurately detect significant hypoglycemia,and testing in the Laboratory should be considered if clinically indicated. POC Performer [phone] [facility] Blood 02/21/2025 3:01 AM CDT 02/21/2025 3:01 AM CDT Rehana Shipley LAB POCT ORDERABLES - DEVICE Final Result Performing Organization Address [facility]/ZIP Co de Phone Number [facility] [address] [place] [address] * (ABNORMAL) POCT glucose (02/20/2025 11:57 PM CDT) Glucose, POC 204(H) 70 - 199 mg/dL Comment: For Glucose values <35 mg/dl when Hematocrit is >60 mg/dl,the test may not accurately detect significant hypoglycemia,and testing in the Laboratory should be considered if clinically indicated. POC Performer [id number] [facility] Blood 02/20/2025 11:5 7 PM CDT 02/20/2025 11:57 PM CDT Rehana Shipley DO LAB POCT ORDERABLES - DEVICE Final Result [facility] [address] [place] [address] * POCT glucose (02/20/2025 7:40 PM CDT) Glucose, POC 166 70 - 199 mg/dL Comment: For Glucose values <35 mg/dl when Hematocrit is >60 mg/dl,the test may not accurately detect significant hypoglycemia,and testing in the Laboratory should be considered if clinically indicated. POC Performer [id number] [facility] Blood 02/20/2025 7:40 PM CDT 02/20/2025 7:40 PM CDT Rehana Kaylan Violetta DO LAB POCT ORDERABLES - DEVICE Final Result Performing Organization Address [facility]/ZIP Co de Phone Number [facility] [address] Department of [employer] [place], [place] [phone] * (ABNORMAL) POCT glucose (02/20/2025 5:38 PM CDT) Glucose, POC 214(H) 70 - 199 mg/dL Comment: For Glucose values <35 mg/dl when Hematocrit is >60 mg/dl,the test may not accurately detect significant hypoglycemia,and testing in the Laboratory should be considered if clinically indicated. POC Performer [phone] [facility] Blood 02/20/2025 5:38 PM CDT 02/20/2025 5:38 PM CDT Rehana Shipley DO LAB POCT ORDERABLES - DEVICE Final Result Performing Organization Address [facility] Co de Phone Number [facility] [address] Department of [employer] [place], [place] [phone] * (ABNORMAL) eGFR (02/20/2025 5:36 PM CDT) [...] ORDERABLES F inal Result Performing Organization Address [facility] Co de Phone Number [facility] [address] [place] [place], [place] [phone] * Strep pneumoniae antigen, urine Urine (02/20/2025 [...] ERAL ORDERABLES Final Result Performing Organization Address [facility]/ZIP Co de Phone Number [facility] [address] [place] [place], [place] [phone] * Legionella antigen Urine (02/20/2025 5:36 PM CDT) Legionella Ag Negative Negative Comment: Interpretive Data This test detects only Legionella pneumophila serogroup 1 antigen. Current interpretive data was last revised on 2019. Urine 02/20/2025 5:36 PM CDT 02/20/2025 5:36 PM CDT Rehana Shipley DO LAB MICROBIOLOGY - GEN ERAL ORDERABLES Final Result [facility] [address] [place] [address] * Magnesium (02/20/2025 5:36 PM CDT) [facility] Magnesium 2.2 1.4 - 2.5 mg/dL Blood 02/20/2025 5:36 PM CDT 02/20/2025 5:48 PM CDT Rehana Shipley DO LAB BLOOD ORDERABLES F inal Result Performing Organization Address [facility] de Phone Number [facility] [address] [place] [address] * (ABNORMAL) Basic metabolic panel (02/20/2025 5:36 PM CDT) [facility] Sodium 147(H) 135 - 145 mmol/L Potassium, pl 3.8 3.3 - 4.9 mmol/L [facility] Chloride 109 97 - 110 mmol/L [facility] CO2 22 22 - 32 mmol/L [facility] Anion gap 16(H) 2 - 15 mmol/L [facility] BUN 34(H) 6 - 25 mg/dL [facility] Creatinine 1.49(H) 0.80 - 1.30 mg/dL [facility] Glucose 188 70 - 199 mg/dL [facility] Comment: Interpretive Data Fasting glucose >/= [...] 2022. Calcium 8.0(L) 8.5 - 10.3 mg/dL [facility] Blood 02/20/2025 5:36 PM CDT 02/20/2025 5:48 PM CDT Rehana Shipley LAB BLOOD ORDERABLES F inal Result Performing Organization Address [facility] Co de Phone Number [facility] [address] Department [place] [address] * (ABNORMAL) Troponin T high-sensitivity (02/20/2025 1:08 PM CDT) Pathologist [facility] Trop T hs 88(H) <=22 ng/L Comment: Interpretive Data For further hscTnT resources including the diagnostic algorithm and an aid in interpretation, copy and paste this link: https://nrl.testcatalog.org/show/hsTrop Current Interpretive Data last revised 2020. Blood 02/20/2025 1:08 PM CDT 02/20/2025 1:14 PM CDT Rehana Shipley [facility] BLOOD ORDERABLES F inal Result Performing Organization Address [facility] Co de Phone Number [facility] [address] [place] [address] * Potassium (02/20/2025 1:08 PM CDT) Potassium, pl 3.3 3.3 - 4.9 mmol/L Comment:Hemolyzed; potassium value may be falsely elevated by as much as 0.3 - 0.5 mmol/L. Suggest redraw and reanalysis Blood 02/20/2025 1:08 PM CDT 02/20/2025 1:14 PM CDT [facility]ative [facility] 02/20/2025 1:32 PM CDT Draw 4 hours after second potassium chloride dose completed. Brayden Roach MD LAB BLOOD ORDERABLES Final Result Performing Organization Address [facility]/ZIP Co de Phone Number [facility] [address] [place] [address] * POCT glucose (02/20/2025 1:01 PM CDT) Glucose, POC 193 70 - 199 mg/dL Comment: For Glucose values <35 mg/dl when Hematocrit is >60 mg/dl,the test may not accurately detect significant hypoglycemia,and testing in the Laboratory should be considered if clinically indicated. POC Performer [phone] [facility] Blood 02/20/2025 1:01 PM CDT 02/20/2025 1:01 PM CDT Rehana Shipley DO LAB POCT ORDERABLES - DEVICE Final Result Performing Organization Address [facility] Co de Phone Number [facility] [address] Department [place] [address] * Blood culture Blood (02/20/2025 10:36 AM CDT) [facility] Report Final Report: No growth Blood 02/20/2025 10:3 6 AM CDT 02/20/2025 10:38 AM CDT Narrative [facility] - 02/25/2025 1:00 PM CDT From [...] organism identification may be performed using the [employer] Blood Culture Identification panel. This assay detects microbial DNA in a blood culture broth. This assay has been cleared by the [place] Food and Drug Administration and its performance characteristics have been verified by the [facility]. Interpretive data was last revised on November 09, 2022. Rehana Shipley LAB MICROBIOLOGY - GEN ERAL ORDERABLES Final Result Performing Organization Address City/[facility]/ZIP Co de Phone Number [facility] [address] Department [place] [address] * Blood culture Blood (02/20/2025 10:36 AM CDT) Report Final Report: No growth Blood 02/20/2025 10:3 6 AM CDT 02/20/2025 10:38 AM CDT [facility]ative [facility] 02/25/2025 1:00 PM CDT Collection->Peripheral Interpretive [...] organism identification may be performed using the [employer] Blood Culture Identification panel. This assay detects microbial DNA in a blood culture broth. This assay has been cleared by the [place] Food and Drug Administration and its performance characteristics have been verified by the [facility]. Interpretive data was last revised on November 09, 2022. Rehana Shipley LAB MICROBIOLOGY - GEN ERAL ORDERABLES Final Result Performing Organization Address City/[facility] Co de Phone Number [facility] [address] Department [place] [address] * (ABNORMAL) POCT glucose (02/20/2025 8:48 AM CDT) Glucose, POC 223(H) 70 - 199 mg/dL Comment: For Glucose values <35 mg/dl when Hematocrit is >60 mg/dl,the test may not accurately detect significant hypoglycemia,and testing in the Laboratory should be considered if clinically indicated. POC Performer [phone] [facility] Blood 02/20/2025 8:48 AM CDT 02/20/2025 8:48 AM CDT Rehana Shipley DO LAB POCT ORDERABLES - DEVICE Final Result Performing Organization Address [facility] Co de Phone Number [facility] [address] Department [place] [address] * (ABNORMAL) Aerobic culture and gram stain Tracheal aspirate Lung (02/20/2025 6:57 AM CDT) Direct Specimen Exam Stain: Moderate squamous epithelial cells seen. Many polymorphonuclear leukocytes seen. Moderate mixed bacterial heriberto seen on Gram stain. Report Final Report: Moderate growth of: Escherichia coli Light growth normal heriberto (.) [facility] Organism [facility] Tracheal aspirate (Lung) 02/20/2025 6:57 AM [...] ERAL ORDERABLES Final Result Performing Organization Address [facility] Co de Phone Number [facility] [address] Department [place] [address] * XR Chest 1 View (02/20/2025 4:15 [...] DO LAB BLOOD ORDERABLES F inal Result [facility] [address] Department [place] [address] * (ABNORMAL) Differential, auto (02/20/2025 3:06 AM CDT) Neutrophil abs 9.80(H) 1.50 - 6.50 K/cumm Imm gran abs 0.07 0.00 - 0.10 K/cumm [facility] Lymphocyte abs 2.37 0.80 - 3.30 K/cumm [facility] Monocyte abs 1.86(H) 0.20 - 0.80 K/cumm [facility] Eosinophil abs 0.02 0.00 - 0.50 K/cumm [facility] Basophil abs 0.04 0.00 - 0.10 K/cumm [facility] Neutrophil pct 69.3 % [facility] Comment: Interpretive Data Percent cell count reference ranges are not reported, since discordance with absolute values may lead to misinterpretation of CBC data. Current Interpretive Data was last revised on 2018. Imm gran pct 0.5 % [facility] Comment: Interpretive Data Percent cell count reference ranges are not reported, since discordance with absolute values may lead to misinterpretation of CBC data. Current Interpretive Data was last revised on 2018. Lymphocyte pct 16.7 % [facility] Comment: Interpretive Data Percent cell count reference ranges are not reported, since discordance with absolute values may lead to misinterpretation of CBC data. Current Interpretive Data was last revised on 2018. Monocyte pct 13.1 % [facility] Comment: Interpretive Data Percent cell count reference ranges are not reported, since discordance with absolute values may lead to misinterpretation of CBC data. Current Interpretive Data was last revised on 2018. Eosinophil pct 0.1 % [facility] Comment: Interpretive Data Percent cell count reference ranges are not reported, since discordance with absolute values may lead to misinterpretation of CBC data. Current Interpretive Data was last revised on 2018. Basophil pct 0.3 % [facility] Comment: Interpretive Data Percent cell count reference ranges are not reported, since discordance with absolute values may lead to misinterpretation of CBC data. Current Interpretive Data was last revised on 2018. Blood 02/20/2025 3:06 AM CDT 02/20/2025 3:30 AM CDT us Brayden Roach MD LAB BLOOD ORDERABLES Final Result [facility] [address] Department [place] [address] * (ABNORMAL) CBC with auto differential (02/20/2025 3:06 AM CDT) WBC 14.16(H) 3.80 - 9.90 K/cumm Hgb 12.6(L) 13.0 - 17.5 g/dL [facility] Hct 41.0 38.9 - 50.3 % [facility] Plt 196 150 - 400 K/cumm [facility] MPV 11.0 9.1 - 12.3 fL [facility] RBC 4.32 4.30 - 5.80 M/cumm [facility] MCV 94.9 81.3 - 96.4 fL [facility] MCH 29.2 27.1 - 33.3 pg [facility] MCHC 30.7(L) 32.3 - 35.7 g/dL [facility] RDW CV 15.9(H) 11.1 - 14.9 % [facility] RDW SD 55.6(H) 35.7 - 48.1 fL [facility] NRBC abs 0.00 0.00 - 0.01 K/cumm [facility] Blood 02/20/2025 3:06 AM CDT 02/20/2025 3:30 AM CDT Brayden Roach MD LAB BLOOD ORDERABLES Final Result Performing Organization Address City/[facility]/ZIP Co de Phone Number [facility] [address] [facility] [employer] [place], [place] [phone] * (ABNORMAL) Phosphorus (02/20/2025 3:06 AM CDT) Pathologist [facility] [place] Phosphorus, pl 5.0(H) 2.3 - 4.5 mg/dL Blood 02/20/2025 3:06 AM CDT 02/20/2025 3:30 AM CDT Rehana Shipley DO LAB BLOOD ORDERABLES F inal Result Performing Organization Address [facility] Co de Phone Number [facility] [address] Department [employer] [place], [place] [id number] * Magnesium (02/20/2025 3:06 AM CDT) [facility] Magnesium 2.1 1.4 - 2.5 mg/dL Comment:Reviewed Blood 02/20/2025 3:06 AM CDT 02/20/2025 3:30 AM CDT Rehana Shipley DO LAB BLOOD ORDERABLES F inal Result Performing Organization Address [facility]/ZIP Co de Phone Number [facility] [address] [place] [address] * (ABNORMAL) Comprehensive metabolic panel (02/20/2025 3:06 AM CDT) Pathologist [facility] [place] Sodium 144 135 - 145 mmol/L Potassium, pl 3.2(L) 3.3 - 4.9 mmol/L [facility] Chloride 106 97 - 110 mmol/L [facility] CO2 26 22 - 32 mmol/L [facility] Anion gap 12 2 - 15 mmol/L [facility] BUN 34(H) 6 - 25 mg/dL [facility] Creatinine 1.77(H) 0.80 - 1.30 mg/dL [facility] Glucose 186 70 - 199 mg/dL [facility] Comment: Interpretive Data Fasting glucose >/= [...] 2022. Calcium 8.1(L) 8.5 - 10.3 mg/dL [facility] Bilirubin, total 0.3 0.1 - 1.2 mg/dL [facility] Protein, pl 6.1(L) 6.5 - 8.5 g/dL [facility] Albumin 3.0(L) 3.5 - 5.0 g/dL [facility] Alk phos 88 40 - 130 Units/L [facility] ALT 15 7 - 55 Units/L [facility] AST 21 10 - 50 Units/L [facility] Blood 02/20/2025 3:06 AM CDT 02/20/2025 3:30 AM CDT us Rehana Shipley DO LAB BLOOD ORDERABLES F inal Result [facility] [address] Department [place] [address] * POCT glucose (02/19/2025 7:46 PM CDT) [facility] Glucose, POC 165 70 - 199 mg/dL Comment: For Glucose values <35 mg/dl when Hematocrit is >60 mg/dl,the test may not accurately detect significant hypoglycemia,and testing in the Laboratory should be considered if clinically indicated. POC Performer [phone] [facility] Blood 02/19/2025 7:46 PM CDT 02/19/2025 7:46 PM CDT Rehana Shipley Proficient LAB POCT ORDERABLES - DEVICE Final Result Performing Organization Address [facility]/ZIP Co de Phone Number STEPHANIE [facility] [address] Department [place] [address] * POCT glucose (02/19/2025 5:46 PM CDT) Pathologist [facility] [place] Glucose, POC 177 70 - 199 mg/dL Comment: For Glucose values <35 mg/dl when Hematocrit is >60 mg/dl,the test may not accurately detect significant hypoglycemia,and testing in the Laboratory should be considered if clinically indicated. POC Performer [phone] [facility] Blood 02/19/2025 5:46 PM CDT 02/19/2025 5:46 PM CDT Rehana Shipley LAB POCT ORDERABLES - DEVICE Final Result Performing Organization Address [facility] de Phone Number STEPHANIE [facility] [address] Department [place] [address] * (ABNORMAL) eGFR (02/19/2025 3:31 PM CDT) [facility] eGFR 47(L) >=60 mL/min/1. 73 m2 Comment: [...] DO LAB BLOOD ORDERABLES F inal Result [facility] [address] Department [place] [address] * (ABNORMAL) Renal function panel (02/19/2025 3:31 PM CDT) Sodium 149(H) 135 - 145 mmol/L Potassium, pl 4.1 3.3 - 4.9 mmol/L [facility] Comment:Hemolyzed; potassium value may be falsely elevated by as much as 0.6 - 1.0 mmol/L. Suggest redraw and reanalysis Chloride 110 97 - 110 mmol/L [facility] CO2 22 22 - 32 mmol/L [facility] Anion gap 17(H) 2 - 15 mmol/L [facility] BUN 28(H) 6 - 25 mg/dL [facility] Creatinine 1.57(H) 0.80 - 1.30 mg/dL [facility] Glucose 156 70 - 199 mg/dL [facility] Comment: Interpretive Data Fasting glucose >/= [...] 2022. Calcium 8.2(L) 8.5 - 10.3 mg/dL [facility] Phosphorus, pl 5.2(H) 2.3 - 4.5 mg/dL [facility] Albumin 3.2(L) 3.5 - 5.0 g/dL [facility] Blood 02/19/2025 3:31 PM CDT 02/19/2025 3:52 PM CDT us Rehana Shipley DO LAB BLOOD ORDERABLES F inal Result [facility] [address] Department [place] [address] * TRANSTHORACIC ECHO (TTE) COMPLETE W DOPPLER/CF W CONTRAST (02/19/2025 12:14 PM CDT) Estimated EF 25 % CONS SCIMAGE Anatomical Region Laterality Modality Ultrasound 02/19/2025 7:43 AM CDT Narrative 02/19/2025 12:28 PM CDT [facility] [address] [address] ECHOCARDIOGRAM Patient Name: MAURICIO HEADLEY : 1955 (70y ) Gender: M Study Date: 02/19/2025 07:43:35 AM Ht(Inch): 68 Wt(Lb): 171.96 BSA: 1.93 Lead Cashier: YUMIKO Location: [id number] Order Provider: KARIN RODRIGUEZ BMI: 26.14 BP: [...] ms MV E/A Ratio 1.0 TR Peak Stahya 2.4 m/s [ 1.0 - 2.8 ] [...] right atrial pressures. Exam Interpreted: Read by Senior Information Security Analyst of the day to expedite patient care. [...] pressures. Electronically Signed By: Hernan Coley MD [facility] 02/19/2025 12:28:06 PM CDT Wall Motion Analysis - Resting Procedure Note Hernan Coley MD - 02/19/2025 [facility] [address] [place] [address] ECHOCARDIOGRAM Patient Name: MAURICIO HEADLEY : 1955 (70y ) Gender: M Study Date: 02/19/2025 07:43:35 AM Ht(Inch): 68 Wt(Lb): 171.96 BSA: 1.93 Lead Cashier: YUMIKO Location: [id number] Order Provider: KARIN RODRIGUEZ BMI: 26.14 BP: [...] intermediateright atrial pressures. Exam Interpreted: Read by Senior Information Security Analyst of the day to expedite patientcare. CONCLUSIONS: [...] pressures. Electronically Signed By: Hernan Coley MD [facility] 02/19/2025 12:28:06 PM CDT Wall Motion Analysis - Resting Karin Rodriguez MD CV ECHO PROCEDURES Final Res ult * POCT glucose (02/19/2025 11:30 AM CDT) Glucose, POC 140 70 - 199 mg/dL Comment: For Glucose values <35 mg/dl when Hematocrit is >60 mg/dl,the test may not accurately detect significant hypoglycemia,and testing in the Laboratory should be considered if clinically indicated. POC Performer [id number] [facility] Blood 02/19/2025 11:3 0 AM CDT 02/19/2025 11:30 AM CDT Rehana Shipley DO LAB POCT ORDERABLES - DEVICE Final Result Performing Organization Address City/[facility]/ZIP Co de Phone Number [facility] [address] Department [place] [address] * Lactate (02/19/2025 10:51 AM CDT) Lactate 1.5 0.7 - 2.0 mmol/L Blood 02/19/2025 10:5 1 AM CDT 02/19/2025 10:59 AM CDT Result [facility] Rehana Shipley DO LAB BLOOD ORDERABLES F inal Result [facility] [address] Department [place] [address] * (ABNORMAL) Procalcitonin (02/19/2025 10:51 AM CDT) Procalcitonin 3.00(H) <=0.25 ng/mL Blood 02/19/2025 10:5 1 AM CDT 02/19/2025 11:03 AM CDT Rehanamoise Kimbrough Violetta DO LAB BLOOD ORDERABLES F inal Result [facility] [address] Department [place] [address] * Respiratory pathogen panel Nasopharyngeal (02/19/2025 10:51 AM CDT) Pathologist [facility] [place] Influenza A RNA Not Detected Not Detected [facility] Influenza B RNA Not Detected Not Detected [facility] RSV RNA Not Detected Not Detected [facility] COVID-19 RNA Not Detected Not Detected [facility] Coronavirus 229E RNA Not Detected Not Detected [facility] Coronavirus HKU1 RNA Not Detected Not Detected [facility] Coronavirus NL63 RNA Not Detected Not Detected [facility] Coronavirus OC43 RNA Not Detected Not Detected [facility] Adenovirus DNA Not Detected Not Detected [facility] Metapneumovirus RNA Not Detected Not Detected [facility] Rhinovirus/Enterov irus RNA Not Detected Not Detected [facility] Parainfluenza 1 RNA Not Detected Not Detected [facility] Parainfluenza 2 RNA Not Detected Not Detected [facility] Parainfluenza 3 RNA Not Detected Not Detected [facility] Parainfluenza 4 RNA Not Detected Not Detected [facility] B. pertussis DNA Not Detected Not Detected [facility] B. parapertussis DNA Not Detected Not Detected [facility] C. pneumoniae DNA Not Detected Not Detected [facility] M. pneumoniae DNA Not Detected Not Detected [facility] Comment: Interpretive Data The Storwize FilmArray Respiratory Panel (RP2.1) assay is a [...] assay has FDA clearance for testing of SHRIMP PACKER swabs. The performance characteristics of this assay have been determined by [facility]. Current interpretive data was last revised on 2021. Nasopharyngeal 02/19/2025 10 :51 AM CDT 02/19/2025 11:04 AM CDT Narrative STEPHANIE [facility] - 02/19/2025 11:56 AM CDT Is the Patient experiencing symptoms consistent with COVID?->Unknown Surveillance testing for transplant patient?->No us Rehana Shipley DO LAB MICROBIOLOGY - GEN ERAL ORDERABLES Final Result [facility] [address] Department [place] [address] MBC * MRSA Only (Staphylococcus aureus) PCR Nasal (02/19/2025 10:51 AM CDT) [facility] PCR Scrn, Methicillin resistant Staphylococcus aureus (MRSA) Not Detected Not Detected Comment: Interpretive Data Testing performed using Nucleic Acid Amplification with the Fandeavor Xpert MRSA NxG Assay. This assay detects target DNA from mecA, mecC and the SCCmec insertion site of Staphylococcus aureus using Real-Time PCR and has been cleared by the FDA. Performance characteristics have been verified by the [facility]. Current Interpretive Data was last revised on 2023 Nasal 02/19/2025 10:5 1 AM CDT 02/19/2025 11:04 AM CDT Rehana Kaylan Shipley DO LAB MICROBIOLOGY - GEN ERAL ORDERABLES Final Result Performing Organization Address [facility] Co de Phone Number [facility] [address] [place] [address] * Magnesium - Add on lab test (02/19/2025 10:06 AM CDT) Acceptable Yes Blood 02/19/2025 10:0 6 AM CDT 02/19/2025 10:06 AM CDT Narrative [facility] - 02/19/2025 10:07 AM CDT Name of Test->Magnesium Rehana Shipley DO LAB BLOOD ORDERABLES F inal Result Performing Organization Address [facility] de Phone Number [facility] [address] [place] [address] * Phosphorus - Add on lab test (02/19/2025 10:06 AM CDT) Acceptable Yes Blood 02/19/2025 10:0 6 AM CDT 02/19/2025 10:06 AM CDT Narrative [facility] - 02/19/2025 10:07 AM CDT Name of Test->Phosphorus Rehana Kaylan Shipley DO LAB BLOOD ORDERABLES F inal Result Performing Organization Address [facility] Co de Phone Number [facility] [address] Department [place] [address] * POCT glucose (02/19/2025 9:37 AM CDT) Glucose, POC 130 70 - 199 mg/dL Comment: For Glucose values <35 mg/dl when Hematocrit is >60 mg/dl,the test may not accurately detect significant hypoglycemia,and testing in the Laboratory should be considered if clinically indicated. POC Performer [phone] [facility] Blood 02/19/2025 9:37 AM CDT 02/19/2025 9:37 AM CDT Rehana Shipley DO LAB POCT ORDERABLES - DEVICE Final Result [facility] [address] Department [place] [address] * XR Chest 1 View (02/19/2025 8:50 [...] eGFR (02/19/2025 3:11 AM CDT) Pathologist [facility] [place] eGFR 52(L) >=60 mL/min/1. 73 m2 Comment: [...] MD LAB BLOOD ORDERABLES Final R esult [facility] [address] Department [place] [address] * (ABNORMAL) CBC without differential (02/19/2025 3:11 AM CDT) Pathologist [facility] [place] WBC 14.88(H) 3.80 - 9.90 K/cumm Hgb 13.7 13.0 - 17.5 g/dL STEPHANIE [facility] Hct 44.7 38.9 - 50.3 % [facility] Plt 235 150 - 400 K/cumm [facility] MPV 11.0 9.1 - 12.3 fL [facility] RBC 4.73 4.30 - 5.80 M/cumm [facility] MCV 94.5 81.3 - 96.4 fL [facility] MCH 29.0 27.1 - 33.3 pg [facility] MCHC 30.6(L) 32.3 - 35.7 g/dL [facility] RDW CV 15.9(H) 11.1 - 14.9 % [facility] RDW SD 55.0(H) 35.7 - 48.1 fL [facility] NRBC abs 0.00 0.00 - 0.01 K/cumm [facility] Blood 02/19/2025 3:11 AM CDT 02/19/2025 3:35 AM CDT Karin Rodriguez MD LAB BLOOD ORDERABLES Final R esult [facility] [address] [place] [address] * (ABNORMAL) Phosphorus (02/19/2025 3:11 AM CDT) Phosphorus, pl 5.5(H) 2.3 - 4.5 mg/dL Blood 02/19/2025 3:11 AM CDT 02/19/2025 3:34 AM CDT Rehana Shipley DO LAB BLOOD ORDERABLES F inal Result [facility] [address] [place] [address] * (ABNORMAL) Magnesium (02/19/2025 3:11 AM CDT) Magnesium 2.9(H) 1.4 - 2.5 mg/dL Comment:Reviewed Blood 02/19/2025 3:11 AM CDT 02/19/2025 3:34 AM CDT Rehana Shipley DO LAB BLOOD ORDERABLES F inal Result Performing Organization Address City/[facility]/ZIP Co de Phone Number [facility] [address] Department [place] [address] * (ABNORMAL) Basic metabolic panel (02/19/2025 3:11 AM CDT) Pathologist [facility] [place] Sodium 149(H) 135 - 145 mmol/L Potassium, pl 3.6 3.3 - 4.9 mmol/L [facility] Chloride 109 97 - 110 mmol/L [facility] CO2 23 22 - 32 mmol/L [facility] Anion gap 17(H) 2 - 15 mmol/L [facility] BUN 25 6 - 25 mg/dL [facility] Creatinine 1.43(H) 0.80 - 1.30 mg/dL [facility] Glucose 151 70 - 199 mg/dL [facility] Comment: Interpretive Data Fasting glucose >/= [...] 2022. Calcium 8.0(L) 8.5 - 10.3 mg/dL [facility] Blood 02/19/2025 3:11 AM CDT 02/19/2025 3:34 AM CDT us Karin Rodriguez MD LAB BLOOD ORDERABLES Final R esult Performing Organization Address [facility]/ZIP Co de Phone Number [facility] [address] Department [place] [address] * (ABNORMAL) Urinalysis reflex to microscopic and culture Urine (02/18/2025 11:51 PM CDT) Color, ur Yellow Yellow Clarity, ur Clear Clear [facility] Specific gravity, ur 1.029 1.003 - 1.030 [facility] pH, urine 5.5 [facility] Comment: Interpretive Data U rine pH is affected by diet, medications, systemic acid-base disturbances, and renal tubular function. pH may affect urinary stone formation. For example, urine pH below 6.0 may help reduce the tendency for calcium phosphate stones and pH greater than 6.0 may reduce the tendency for uric acid stone formation. Source: [facility] [employer] Current Interpretive Data was last revised on 2017 Protein, ur ql Trace Negative [facility] Glucose, ur ql 2+(A) Negative [facility] Ketones, ur Negative Negative [facility] Bilirubin, ur Negative Negative [facility] Blood, ur Trace(A) Negative [facility] Urobilinogen, ur <2.0 <2.0 mg/dL [facility] Nitrite, ur Negative Negative [facility] Leukocyte esterase, ur Negative Negative [facility] UA reflex comment Reflex to microscopic UA will be performed. [facility] Urine 02/18/2025 11:5 1 PM CDT 02/19/2025 12:08 AM CDT Karin Rodriguez MD LAB MICROBIOLOGY - GENERAL O RDERABLES Final Result [facility] [address] Department [place] [address] * (ABNORMAL) Urinalysis, microscopic only (02/18/2025 11:51 PM CDT) WBC, ur 0-5 0 - 5 /HPF RBC, ur 0-2 0 - 2 /HPF [facility] Mucous, ur Present(A) [facility] Culture Reflex Comment Reflex conditions for urine culture (WBC >10) not met. [facility] Urine 02/18/2025 11:5 1 PM CDT 02/19/2025 12:08 AM CDT Karin Rodriguez MD LAB URINE ORDERABLES Final R esult Performing Organization Address [facility] Co de Phone Number [facility] [address] [place] [address] * POCT glucose (02/18/2025 11:43 PM CDT) Glucose, POC 135 70 - 199 mg/dL Comment: For Glucose values <35 mg/dl when Hematocrit is >60 mg/dl,the test may not accurately detect significant hypoglycemia,and testing in the Laboratory should be considered if clinically indicated. POC Performer [phone] [facility] Blood 02/18/2025 11:4 3 PM CDT 02/18/2025 11:43 PM CDT Rehana Shipley DO LAB POCT ORDERABLES - DEVICE Final Result Performing Organization Address [facility] Co de Phone Number [facility] [address] [place] [address] * POCT glucose (02/18/2025 9:12 PM CDT) Glucose, POC 122 70 - 199 mg/dL Comment: For Glucose values <35 mg/dl when Hematocrit is >60 mg/dl,the test may not accurately detect significant hypoglycemia,and testing in the Laboratory should be considered if clinically indicated. POC Performer [id number] [facility] Blood 02/18/2025 9:12 PM CDT 02/18/2025 9:12 PM CDT Rehana Shipley LAB POCT ORDERABLES - DEVICE Final Result Performing Organization Address [facility] Co de Phone Number [facility] [address] [place] [address] * (ABNORMAL) eGFR (02/18/2025 9:01 PM CDT) [...] LAB BLOOD ORDERABLES Final R esult STEPHANIE [facility] [address] Department [place] [address] * (ABNORMAL) Pro B-type natriuretic peptide (02/18/2025 9:01 PM CDT) Pathologist [facility] [place] NT-proBNP 14,237(H) <=300 pg/mL Comment: Interpretive Comments: [...] MD LAB BLOOD ORDERABLES Final R esult [facility] [address] Department [place] [address] * (ABNORMAL) CBC without differential (02/18/2025 9:01 PM CDT) WBC 17.15(H) 3.80 - 9.90 K/cumm Hgb 14.5 13.0 - 17.5 g/dL [facility] Hct 47.7 38.9 - 50.3 % [facility] Plt 246 150 - 400 K/cumm [facility] MPV 11.1 9.1 - 12.3 fL [facility] RBC 5.01 4.30 - 5.80 M/cumm [facility] MCV 95.2 81.3 - 96.4 fL [facility] MCH 28.9 27.1 - 33.3 pg [facility] MCHC 30.4(L) 32.3 - 35.7 g/dL [facility] RDW CV 15.7(H) 11.1 - 14.9 % [facility] RDW SD 54.9(H) 35.7 - 48.1 fL [facility] NRBC abs 0.00 0.00 - 0.01 K/cumm [facility] Blood 02/18/2025 9:01 PM CDT 02/18/2025 9:33 PM CDT us Karin Rodriguez MD LAB BLOOD ORDERABLES Final R esult Performing Organization Address City/[facility]/ZIP Co de Phone Number [facility] [address] Department [place] [address] * (ABNORMAL) Triglycerides (02/18/2025 9:01 [...] ORDERABLES F inal Result Performing Organization Address [facility]/ZIP Co de Phone Number [facility] [address] [place] [address] * (ABNORMAL) Phosphorus (02/18/2025 9:01 PM CDT) Phosphorus, pl 5.0(H) 2.3 - 4.5 mg/dL Blood 02/18/2025 9:01 PM CDT 02/18/2025 9:32 PM CDT Karin Rodriguez MD LAB BLOOD ORDERABLES Final R esult Performing Organization Address [facility] Co de Phone Number [facility] [address] [facility] [place] [address] * Magnesium (02/18/2025 9:01 PM CDT) Pathologist [facility] [place] Magnesium 2.2 1.4 - 2.5 mg/dL Blood 02/18/2025 9:01 PM CDT 02/18/2025 9:32 PM CDT Karin Rodriguez MD LAB BLOOD ORDERABLES Final R esult Performing Organization Address [facility] de Phone Number [facility] [address] [place] [address] * (ABNORMAL) Comprehensive metabolic panel (02/18/2025 9:01 PM CDT) Pathologist [facility] [place] Sodium 149(H) 135 - 145 mmol/L Potassium, pl 3.7 3.3 - 4.9 mmol/L [facility] Chloride 110 97 - 110 mmol/L [facility] CO2 22 22 - 32 mmol/L [facility] Anion gap 17(H) 2 - 15 mmol/L [facility] BUN 23 6 - 25 mg/dL [facility] Creatinine 1.34(H) 0.80 - 1.30 mg/dL [facility] Glucose 107 70 - 199 mg/dL [facility] Comment: Interpretive Data Fasting glucose >/= [...] 2022. Calcium 8.3(L) 8.5 - 10.3 mg/dL [facility] Bilirubin, total 0.3 0.1 - 1.2 mg/dL [facility] Protein, pl 6.5 6.5 - 8.5 g/dL [facility] Albumin 3.2(L) 3.5 - 5.0 g/dL [facility] Alk phos 116 40 - 130 Units/L [facility] ALT 24 7 - 55 Units/L [facility] AST 48 10 - 50 Units/L [facility] Blood 02/18/2025 9:01 PM CDT 02/18/2025 9:32 PM CDT Karin Rodriguez MD LAB BLOOD ORDERABLES Final R esult Performing Organization Address City/[facility]/ZIP Co de Phone Number [facility] [address] [place] [address] * (ABNORMAL) Lactate (02/18/2025 9:00 PM CDT) [facility] Lactate 2.1(H) 0.7 - 2.0 mmol/L Blood 02/18/2025 9:00 PM CDT 02/18/2025 9:05 PM CDT Karin Rodriguez MD LAB BLOOD ORDERABLES Final R esult Performing Organization Address City/[facility]/ZIP Co de Phone Number [facility] [address] Department [place] [address] * aPTT (02/18/2025 9:00 PM CDT) Pathologist [facility] [place] aPTT 31 28 - 38 sec Comment: Interpretive Data Heparin therapeutic range: 66.0 - 100.0 seconds. Range based on correlation with therapeutic heparin activity range of 0.3 - 0.7 Units/mL. Current interpretive data was last revised on 2023. Blood 02/18/2025 9:00 PM CDT 02/18/2025 9:32 PM CDT Karin Rodriguez MD LAB BLOOD ORDERABLES Final R esult Performing Organization Address [facility] Co de Phone Number [facility] [address] Department [place] [address] * (ABNORMAL) Protime-INR (02/18/2025 9:00 PM CDT) PT 13.1(H) 9.7 - 13.0 sec INR 1.21(H) 0.90 - 1.20 [facility] Comment: Interpretive data Oral anticoagulant therapeutic ranges: Venous thromboembolism prophylaxis or treatment: 2.0-3.0 CARDIOLOGY Standard range: 2.0-3.0 High-intensity range: 2.5-3.5 Refer to indication-specific guidelines for appropriate target ranges for prosthetic heart valve replacement. Current interpretive data was last revised on 2019. Blood 02/18/2025 9:00 PM CDT 02/18/2025 9:32 PM CDT Karin Rodriguez MD LAB BLOOD ORDERABLES Final R esult Performing Organization Address [facility] [facility] Co de Phone Number [facility] [address] [place] [address] * Blood gas, arterial (02/18/2025 8:34 PM CDT) pH, Art 7.42 7.35 - 7.45 PCO2, Arterial 36 35 - 45 mmHg [facility] PO2, Arterial 86 83 - 108 mmHg [facility] HCO3 Art (Calculated) 23 20 - 30 mmol/L [facility] BE, art -1 mmol/L [facility] Comment: Interpretive Data No Reference Range Established Current Interpretive Data was last revised on 2017 O2 Sat Art (Calculated) 97 94 - 98 % [facility] Blood 02/18/2025 8:34 PM CDT 02/18/2025 8:39 PM CDT us Karin Rodriguez MD LAB BLOOD ORDERABLES Final R esult STEPHANIE [facility] [address] Department [place] [address] * X-ray chest 1 view (02/18/2025 8:15 [...] PM CDT Narrative 02/27/2025 12:47 PM CDT [id number] [place] [address] Event MONITOR Patient Name: MAURICIO HEADLEY C [...] arrhythmias. Electronically Signed By: Jb Henning MD [facility] 02/27/2025 12:46:23 PM CDT Procedure Note Jb Henning MD - 02/27/2025 [facility] [address] [address] Event MONITOR Patient Name: MAURICIO HEADLEY C [...] arrhythmias. Electronically Signed By: Jb Henning MD [facility] 02/27/2025 12:46:23 PM CDT us Bella MCGUIRE CV CARDIAC SERVICES PROCEDUR ES Final Result * POCT glucose (01/25/2025 7:47 AM CDT) Glucose, POC 116 70 - 199 mg/dL Comment: For Glucose values <35 mg/dl when Hematocrit is >60 mg/dl,the test may not accurately detect significant hypoglycemia,and testing in the Laboratory should be considered if clinically indicated. POC Performer [phone] [facility] Blood 01/25/2025 7:47 AM CDT 01/25/2025 7:47 AM CDT us Brayden Hopkins MD LAB POCT ORDERABLES - KATE CE Final Result [facility] [address] Department [place] [address] * eGFR (01/25/2025 1:44 AM CDT) [facility] eGFR 86 >=60 mL/min/1. 73 m2 Comment: [...] 01/25/2025 2:35 AM CDT Desire Tapia Tonsor [employer] LAB BLOOD ORDERABLES Fin al Result Performing Organization Address City/[facility]/ZIP Co de Phone Number [facility] [address] [employer] [place] [place] [address] * (ABNORMAL) CBC without differential (01/25/2025 1:44 AM CDT) WBC 13.28(H) 3.80 - 9.90 K/cumm Hgb 10.1(L) 13.0 - 17.5 g/dL [facility] Hct 31.9(L) 38.9 - 50.3 % [facility] Plt 318 150 - 400 K/cumm [facility] MPV 12.0 9.1 - 12.3 fL [facility] RBC 3.44(L) 4.30 - 5.80 M/cumm [facility] MCV 92.7 81.3 - 96.4 fL [facility] MCH 29.4 27.1 - 33.3 pg [facility] MCHC 31.7(L) 32.3 - 35.7 g/dL [facility] RDW CV 17.4(H) 11.1 - 14.9 % [facility] RDW SD 57.3(H) 35.7 - 48.1 fL [facility] NRBC abs 0.00 0.00 - 0.01 K/cumm [facility] Blood 01/25/2025 1:44 AM CDT 01/25/2025 2:35 AM CDT Desire Harrellor [employer] LAB BLOOD ORDERABLES Fin al Result [facility] [address] [place] [address] * Phosphorus (01/25/2025 1:44 AM CDT) Phosphorus, pl 4.2 2.3 - 4.5 mg/dL Blood 01/25/2025 1:44 AM CDT 01/25/2025 2:35 AM CDT Desire Ghotra [employer] LAB BLOOD ORDERABLES Dean francy Result - Final Performing Organization Address City/[facility]/ZIP Co de Phone Number [facility] [address] [place] [address] * (ABNORMAL) Basic metabolic panel (01/25/2025 1:44 AM CDT) [facility] Sodium 142 135 - 145 mmol/L Potassium, pl 3.7 3.3 - 4.9 mmol/L [facility] Chloride 106 97 - 110 mmol/L [facility] CO2 24 22 - 32 mmol/L [facility] Anion gap 12 2 - 15 mmol/L [facility] BUN 16 6 - 25 mg/dL [facility] Creatinine 0.95 0.80 - 1.30 mg/dL [facility] Glucose 123 70 - 199 mg/dL [facility] Comment: Interpretive Data Fasting glucose >/= [...] 2022. Calcium 7.9(L) 8.5 - 10.3 mg/dL [facility] Blood 01/25/2025 1:44 AM CDT 01/25/2025 2:35 AM CDT Desire Ghotra [employer] LAB BLOOD ORDERABLES Dean francy Result - Final Performing Organization Address [facility]/ZIP Co de Phone Number [facility] [address] [place] [address] * POCT glucose (01/24/2025 8:21 PM CDT) Glucose, POC 143 70 - 199 mg/dL Comment: For Glucose values <35 mg/dl when Hematocrit is >60 mg/dl,the test may not accurately detect significant hypoglycemia,and testing in the Laboratory should be considered if clinically indicated. POC Performer [phone] [facility] Blood 01/24/2025 8:21 PM CDT 01/24/2025 8:21 PM CDT Brayden Hopkins MD LAB POCT ORDERABLES - KATE CE Final Result Performing Organization Address [facility] Co de Phone Number [facility] [address] [facility] [employer] [place], [place] [id number] * POCT glucose (01/24/2025 4:53 PM CDT) Glucose, POC 101 70 - 199 mg/dL Comment: For Glucose values <35 mg/dl when Hematocrit is >60 mg/dl,the test may not accurately detect significant hypoglycemia,and testing in the Laboratory should be considered if clinically indicated. POC Performer [id number] [facility] Blood 01/24/2025 4:53 PM CDT 01/24/2025 4:53 PM CDT Brayden Hopkins MD LAB POCT ORDERABLES - KATE CE Final Result Performing Organization Address [facility] Co de Phone Number [facility] [address] [facility] [place] [address] * (ABNORMAL) POCT glucose (01/24/2025 11:54 AM CDT) Glucose, POC 207(H) 70 - 199 mg/dL Comment: For Glucose values <35 mg/dl when Hematocrit is >60 mg/dl,the test may not accurately detect significant hypoglycemia,and testing in the Laboratory should be considered if clinically indicated. POC Performer [id number] [facility] Blood 01/24/2025 11:5 4 AM CDT 01/24/2025 11:54 AM CDT Brayden Hopkins MD LAB POCT ORDERABLES - KATE CE Final Result Performing Organization Address City/[facility] Co de Phone Number STEPHANIE [facility] [address] Department [place] [address] * POCT glucose (01/24/2025 8:44 AM CDT) [facility] Glucose, POC 156 70 - 199 mg/dL Comment: For Glucose values <35 mg/dl when Hematocrit is >60 mg/dl,the test may not accurately detect significant hypoglycemia,and testing in the Laboratory should be considered if clinically indicated. POC Performer [id number] [facility] Blood 01/24/2025 8:44 AM CDT 01/24/2025 8:44 AM CDT Brayden Hopkins MD LAB POCT ORDERABLES - KATE CE Final Result Performing Organization Address [facility] Co de Phone Number STEPHANIE [facility] [address] Department [place] [address] * eGFR (01/24/2025 1:37 AM CDT) [facility] eGFR >90 >=60 mL/min/1. 73 m2 Comment: [...] 01/24/2025 2:34 AM CDT Desire Tapia Tonsor [employer] LAB BLOOD ORDERABLES Fin al Result Performing Organization Address City/[facility] Co de Phone Number [facility] [address] [facility] [place] [address] * (ABNORMAL) CBC without differential (01/24/2025 1:37 AM CDT) WBC 13.10(H) 3.80 - 9.90 K/cumm Hgb 9.5(L) 13.0 - 17.5 g/dL [facility] Hct 30.2(L) 38.9 - 50.3 % [facility] Plt 311 150 - 400 K/cumm [facility] MPV 11.7 9.1 - 12.3 fL [facility] RBC 3.22(L) 4.30 - 5.80 M/cumm [facility] MCV 93.8 81.3 - 96.4 fL [facility] MCH 29.5 27.1 - 33.3 pg [facility] MCHC 31.5(L) 32.3 - 35.7 g/dL [facility] RDW CV 17.3(H) 11.1 - 14.9 % [facility] RDW SD 56.5(H) 35.7 - 48.1 fL [facility] NRBC abs 0.00 0.00 - 0.01 K/cumm [facility] Blood 01/24/2025 1:37 AM CDT 01/24/2025 2:35 AM CDT Desire Harrellor [employer] LAB BLOOD ORDERABLES Fin al Result Performing Organization Address City/[facility]/ZIP Co de Phone Number [facility] [address] [facility] [place] [address] * Phosphorus (01/24/2025 1:37 AM CDT) Pathologist [facility] Phosphorus, pl 3.4 2.3 - 4.5 mg/dL Blood 01/24/2025 1:37 AM CDT 01/24/2025 2:34 AM CDT Desire Harrellor [employer] LAB BLOOD ORDERABLES Fin al Result Performing Organization Address City/[facility] Co de Phone Number [facility] [address] Department [place] [address] * (ABNORMAL) Basic metabolic panel (01/24/2025 1:37 AM CDT) [facility] Sodium 139 135 - 145 mmol/L Potassium, pl 3.8 3.3 - 4.9 mmol/L [facility] Chloride 104 97 - 110 mmol/L [facility] CO2 23 22 - 32 mmol/L [facility] Anion gap 12 2 - 15 mmol/L [facility] BUN 15 6 - 25 mg/dL [facility] Creatinine 0.80 0.80 - 1.30 mg/dL [facility] Glucose 218(H) 70 - 199 mg/dL [facility] Comment: Interpretive Data Fasting glucose >/= [...] 2022. Calcium 7.7(L) 8.5 - 10.3 mg/dL [facility] Blood 01/24/2025 1:37 AM CDT 01/24/2025 2:34 AM CDT Desire Ghotra [employer] LAB BLOOD ORDERABLES Fin al Result Performing Organization Address City/[facility] Co de Phone Number [facility] [address] Department [employer] [place], [place] [phone] * (ABNORMAL) POCT glucose (01/23/2025 8:13 PM CDT) Glucose, POC 261(H) 70 - 199 mg/dL Comment: For Glucose values <35 mg/dl when Hematocrit is >60 mg/dl,the test may not accurately detect significant hypoglycemia,and testing in the Laboratory should be considered if clinically indicated. POC Performer [id number] [facility] Blood 01/23/2025 8:13 PM CDT 01/23/2025 8:13 PM CDT Brayden Hopkins MD LAB POCT ORDERABLES - KATE CE Final Result Performing Organization Address [facility] de Phone Number [facility] [address] [facility] [address] * POCT glucose (01/23/2025 5:33 PM CDT) Glucose, POC 144 70 - 199 mg/dL Comment: For Glucose values <35 mg/dl when Hematocrit is >60 mg/dl,the test may not accurately detect significant hypoglycemia,and testing in the Laboratory should be considered if clinically indicated. POC Performer [id number] [facility] Blood 01/23/2025 5:33 PM CDT 01/23/2025 5:33 PM CDT us Brayden Hopkins MD LAB POCT ORDERABLES - KATE CE Final Result Performing Organization Address [facility] Co de Phone Number [facility] [address] [facility] [employer] [place], [place] [phone] * (ABNORMAL) POCT glucose (01/23/2025 12:25 PM CDT) Glucose, POC 235(H) 70 - 199 mg/dL Comment: For Glucose values <35 mg/dl when Hematocrit is >60 mg/dl,the test may not accurately detect significant hypoglycemia,and testing in the Laboratory should be considered if clinically indicated. POC Performer [id number] [facility] Blood 01/23/2025 12:2 5 PM CDT 01/23/2025 12:25 PM CDT Brayden Hopkins MD LAB POCT ORDERABLES - KATE CE Final Result Performing Organization Address [facility] Co de Phone Number [facility] [address] [facility] [place] [address] * NT-Pro BNP - Add on lab test (01/23/2025 10:29 AM CDT) Acceptable Yes Blood 01/23/2025 10:2 9 AM CDT 01/23/2025 10:29 AM CDT Narrative [facility] - 01/23/2025 10:29 AM CDT Name of Test->NT-Pro BNP Balbina Mac NP LAB BLOOD ORDERABLES Fi nal Result Performing Organization Address [facility] Co de Phone Number [facility] [address] [facility] [employer] [place], [place] [phone] * POCT glucose (01/23/2025 7:52 AM CDT) Glucose, POC 164 70 - 199 mg/dL Comment: For Glucose values <35 mg/dl when Hematocrit is >60 mg/dl,the test may not accurately detect significant hypoglycemia,and testing in the Laboratory should be considered if clinically indicated. POC Performer [id number] [facility] Blood 01/23/2025 7:52 AM CDT 01/23/2025 7:52 AM CDT Brayden Hopkins MD LAB POCT ORDERABLES - KATE CE Final Result Performing Organization Address [facility] Co de Phone Number [facility] [address] [facility] [employer] [place], [place] [phone] * eGFR (01/23/2025 12:46 AM CDT) eGFR [...] CDT 01/23/2025 12:58 AM CDT Desire Ghotra [employer] LAB BLOOD ORDERABLES Fin al Result STEPHANIE [facility] [address] Department [place] [address] * (ABNORMAL) Pro B-type natriuretic peptide (01/23/2025 [...] Hopkins MD LAB BLOOD ORDERABLES Final Result [facility] [address] Department [place] [address] * (ABNORMAL) CBC without differential (01/23/2025 12:46 AM CDT) WBC 14.01(H) 3.80 - 9.90 K/cumm Hgb 9.7(L) 13.0 - 17.5 g/dL [facility] Hct 30.6(L) 38.9 - 50.3 % [facility] Plt 299 150 - 400 K/cumm [facility] MPV 10.8 9.1 - 12.3 fL [facility] RBC 3.33(L) 4.30 - 5.80 M/cumm [facility] MCV 91.9 81.3 - 96.4 fL [facility] MCH 29.1 27.1 - 33.3 pg [facility] MCHC 31.7(L) 32.3 - 35.7 g/dL [facility] RDW CV 17.6(H) 11.1 - 14.9 % [facility] RDW SD 53.6(H) 35.7 - 48.1 fL [facility] NRBC abs 0.00 0.00 - 0.01 K/cumm [facility] Blood 01/23/2025 12:4 6 AM CDT 01/23/2025 12:58 AM CDT Desire Harrellor [employer] LAB BLOOD ORDERABLES Fin al Result [facility] [address] Department [employer] [place], [place] [id number] * Phosphorus (01/23/2025 12:46 AM CDT) [facility] Phosphorus, pl 2.9 2.3 - 4.5 mg/dL Blood 01/23/2025 12:4 6 AM CDT 01/23/2025 12:58 AM CDT Desire Harrellor [employer]ER LAB BLOOD ORDERABLES Fin al Result Performing Organization Address City/[facility]/ZIP Co de Phone Number [facility] [address] [place] [address] * (ABNORMAL) Basic metabolic panel (01/23/2025 12:46 AM CDT) [facility] Sodium 139 135 - 145 mmol/L Potassium, pl 3.7 3.3 - 4.9 mmol/L [facility] Chloride 105 97 - 110 mmol/L [facility] CO2 23 22 - 32 mmol/L [facility] Anion gap 11 2 - 15 mmol/L [facility] BUN 14 6 - 25 mg/dL [facility] Creatinine 0.79(L) 0.80 - 1.30 mg/dL [facility] Glucose 178 70 - 199 mg/dL [facility] Comment: Interpretive Data Fasting glucose >/= [...] 2022. Calcium 7.4(L) 8.5 - 10.3 mg/dL [facility] Blood 01/23/2025 12:4 6 AM CDT 01/23/2025 12:58 AM CDT Desire Ghotra NP LAB BLOOD ORDERABLES Fin al Result Performing Organization Address [facility]/ZIP Co de Phone Number [facility] [address] [employer] [place], [place] [phone] * POCT glucose (01/22/2025 8:42 PM CDT) Glucose, POC 188 70 - 199 mg/dL Comment: For Glucose values <35 mg/dl when Hematocrit is >60 mg/dl,the test may not accurately detect significant hypoglycemia,and testing in the Laboratory should be considered if clinically indicated. POC Performer [id number] [facility] Blood 01/22/2025 8:42 PM CDT 01/22/2025 8:42 PM CDT Brayden Hopkins MD LAB POCT ORDERABLES - KATE CE Final Result Performing Organization Address City/[facility]/ZIP Co de Phone Number [facility] [address] [facility] [employer] [place], [place] [phone] * POCT glucose (01/22/2025 5:30 PM CDT) Glucose, POC 138 70 - 199 mg/dL Comment: For Glucose values <35 mg/dl when Hematocrit is >60 mg/dl,the test may not accurately detect significant hypoglycemia,and testing in the Laboratory should be considered if clinically indicated. POC Performer [id number] [facility] Blood 01/22/2025 5:30 PM CDT 01/22/2025 5:30 PM CDT Brayden Hopkins MD LAB POCT ORDERABLES - KATE CE Final Result Performing Organization Address [facility] de Phone Number [facility] [address] [facility] [place] [address] * POCT glucose (01/22/2025 12:20 PM CDT) Glucose, POC 153 70 - 199 mg/dL Comment: For Glucose values <35 mg/dl when Hematocrit is >60 mg/dl,the test may not accurately detect significant hypoglycemia,and testing in the Laboratory should be considered if clinically indicated. POC Performer [id number] [facility] Blood 01/22/2025 12:2 0 PM CDT 01/22/2025 12:20 PM CDT Brayden Hopkins MD LAB POCT ORDERABLES - KATE CE Final Result Performing Organization Address [facility] de Phone Number [facility] [address] [facility] [place] [address] * POCT glucose (01/22/2025 8:15 AM CDT) Glucose, POC 184 70 - 199 mg/dL Comment: For Glucose values <35 mg/dl when Hematocrit is >60 mg/dl,the test may not accurately detect significant hypoglycemia,and testing in the Laboratory should be considered if clinically indicated. POC Performer [id number] [facility] Blood 01/22/2025 8:15 AM CDT 01/22/2025 8:15 AM CDT Brayden Hopkins MD LAB POCT ORDERABLES - KATE CE Final Result Performing Organization Address [facility]/ZIP Co de Phone Number [facility] [address] Department [place] [address] * eGFR (01/22/2025 12:34 AM CDT) Pathologist [facility] eGFR >90 >=60 mL/min/1. 73 m2 Comment: [...] ORDERABLES Fin al Result Performing Organization Address [facility] Co de Phone Number [facility] [address] Department [place] [address] * (ABNORMAL) CBC without differential (01/22/2025 12:34 AM CDT) Pathologist [facility] WBC 15.34(H) 3.80 - 9.90 K/cumm Hgb 9.3(L) 13.0 - 17.5 g/dL [facility] Hct 29.4(L) 38.9 - 50.3 % [facility] Plt 295 150 - 400 K/cumm [facility] MPV 11.3 9.1 - 12.3 fL [facility] RBC 3.22(L) 4.30 - 5.80 M/cumm [facility] MCV 91.3 81.3 - 96.4 fL [facility] MCH 28.9 27.1 - 33.3 pg [facility] MCHC 31.6(L) 32.3 - 35.7 g/dL [facility] RDW CV 17.2(H) 11.1 - 14.9 % [facility] RDW SD 53.2(H) 35.7 - 48.1 fL [facility] NRBC abs 0.06(H) 0.00 - 0.01 K/cumm [facility] Blood 01/22/2025 12:3 4 AM CDT 01/22/2025 12:48 AM CDT Desire Tapia Tonsor SHR[employer]ER LAB BLOOD ORDERABLES Fin al Result Performing Organization Address [facility] Co de Phone Number [facility] [address] [place] [address] * Phosphorus (01/22/2025 12:34 AM CDT) Phosphorus, pl 2.9 2.3 - 4.5 mg/dL Blood 01/22/2025 12:3 4 AM CDT 01/22/2025 12:47 AM CDT Desire Harrellor SHR[employer] LAB BLOOD ORDERABLES Fin al Result [facility] [address] Department [place] [address] * Magnesium (01/22/2025 12:34 AM CDT) Magnesium 1.9 1.4 - 2.5 mg/dL Blood 01/22/2025 12:3 4 AM CDT 01/22/2025 12:47 AM CDT us Desire Tapia Tonsor [employer] LAB BLOOD ORDERABLES Fin al Result Performing Organization Address City/[facility]/ZIP Co de Phone Number [facility] [address] Department [place] [address] * (ABNORMAL) Basic metabolic panel (01/22/2025 12:34 AM CDT) Pathologist [facility] Sodium 138 135 - 145 mmol/L Potassium, pl 4.1 3.3 - 4.9 mmol/L [facility] Chloride 105 97 - 110 mmol/L [facility] CO2 22 22 - 32 mmol/L [facility] Anion gap 11 2 - 15 mmol/L [facility] BUN 16 6 - 25 mg/dL [facility] Creatinine 0.73(L) 0.80 - 1.30 mg/dL [facility] Glucose 188 70 - 199 mg/dL [facility] Comment: Interpretive Data Fasting glucose >/= [...] 2022. Calcium 7.5(L) 8.5 - 10.3 mg/dL [facility] Blood 01/22/2025 12:3 4 AM CDT 01/22/2025 12:47 AM CDT Desire Harrellor [employer] LAB BLOOD ORDERABLES Fin al Result Performing Organization Address City/[facility]/ZIP Co de Phone Number [facility] [address] Department [place] [address] * POCT glucose (01/21/2025 8:45 PM CDT) Glucose, POC 177 70 - 199 mg/dL Comment: For Glucose values <35 mg/dl when Hematocrit is >60 mg/dl,the test may not accurately detect significant hypoglycemia,and testing in the Laboratory should be considered if clinically indicated. POC Performer [id number] [facility] Blood 01/21/2025 8:45 PM CDT 01/21/2025 8:45 PM CDT Brayden Hopkins MD LAB POCT ORDERABLES - KATE CE Final Result Performing Organization Address [facility] Co de Phone Number [facility] [address] Department of [employer] [place], [place] [phone] * POCT glucose (01/21/2025 5:50 PM CDT) [facility] Glucose, POC 195 70 - 199 mg/dL Comment: For Glucose values <35 mg/dl when Hematocrit is >60 mg/dl,the test may not accurately detect significant hypoglycemia,and testing in the Laboratory should be considered if clinically indicated. POC Performer [id number] [facility] Blood 01/21/2025 5:50 PM CDT 01/21/2025 5:50 PM CDT Brayden Hopkins MD LAB POCT ORDERABLES - KATE CE Final Result Performing Organization Address [facility] de Phone Number [facility] [address] [place] [address] * ECG 12 lead (01/21/2025 1:08 PM CDT) 01/21/2025 1:08 PM CDT Narrative [facility] - 01/22/2025 8:50 AM CDT Vent Rate: 108 bpm RR Interval: 552 msec AL Interval: 158 msec QRS Duration: 157 msec QT Interval: 386 msec QTC Interval: 450 msec P-R-T Boomer: -14 - 56 - 193 degrees IMPRESSION: ELECTRONIC VENTRICULAR PACEMAKER ABNORMAL RHYTHM ECG Electronically Signed By: Hernan Coley MD [facility] Brayden Hopkins MD ECG ORDERABLES Final Resu lt Performing Organization Address City/[facility]/ZIP Co de Phone Number [facility] * POCT glucose (01/21/2025 12:27 PM CDT) Glucose, POC 133 70 - 199 mg/dL Comment: For Glucose values <35 mg/dl when Hematocrit is >60 mg/dl,the test may not accurately detect significant hypoglycemia,and testing in the Laboratory should be considered if clinically indicated. POC Performer [id number] [facility] Blood 01/21/2025 12:2 7 PM CDT 01/21/2025 12:27 PM CDT Brayden Hopkins MD LAB POCT ORDERABLES - KATE CE Final Result Performing Organization Address [facility] Co de Phone Number [facility] [address] Department [place] [address] * Critical Care (01/21/2025 6:52 AM CDT) Narrative Malcolm Valverde MD - 01/21/2025 6:52 AM CDT Maloclm Valverde MD 01/21/2025 4:58 PM Critical Care Performed by: Desire Ghotra NP Authorized by: Desire Ghotra NP CRITICAL CARE: Team: [facility] Shift: AM Level of Billing: Subsequent [...] plan with the patient's team and other medical/security system sales consultant staff. This time was in addition [...] signed by: Sandeep Mar M.D. Kaelyn Gale SHRIMP PACKER IMG XR PROCEDURES Final Re sult * [...] ORDERABLES Final Resu lt Performing Organization Address [facility]/ZIP Co de Phone Number [facility] [address] Department [place] [address] * (ABNORMAL) CBC without differential (01/21/2025 12:06 AM CDT) Pathologist [facility] WBC 17.16(H) 3.80 - 9.90 K/cumm Hgb 9.4(L) 13.0 - 17.5 g/dL [facility] Hct 29.3(L) 38.9 - 50.3 % [facility] Plt 274 150 - 400 K/cumm [facility] MPV 11.2 9.1 - 12.3 fL [facility] RBC 3.28(L) 4.30 - 5.80 M/cumm [facility] MCV 89.3 81.3 - 96.4 fL [facility] MCH 28.7 27.1 - 33.3 pg [facility] MCHC 32.1(L) 32.3 - 35.7 g/dL [facility] RDW CV 16.9(H) 11.1 - 14.9 % [facility] RDW SD 53.1(H) 35.7 - 48.1 fL [facility] NRBC abs 0.04(H) 0.00 - 0.01 K/cumm [facility] Blood 01/21/2025 12:0 6 AM CDT 01/21/2025 12:14 AM CDT Kaelyn Gale NP LAB BLOOD ORDERABLES Final Result [facility] [address] Department [place] [address] * Phosphorus (01/21/2025 12:06 AM CDT) Pathologist [facility] Phosphorus, pl 2.6 2.3 - 4.5 mg/dL Blood 01/21/2025 12:0 6 AM CDT 01/21/2025 12:14 AM CDT Desire Ann Tonsor SHRIMP P[employer]ER LAB BLOOD ORDERABLES Fin al Result Performing Organization Address City/[facility]/ZIP Co de Phone Number [facility] [address] [facility] [address] * Magnesium (01/21/2025 12:06 AM CDT) [facility] Magnesium 2.0 1.4 - 2.5 mg/dL Blood 01/21/2025 12:0 6 AM CDT 01/21/2025 12:14 AM CDT Desire Tapia [facility] [facility] LAB BLOOD ORDERABLES Fin al Result Performing Organization Address [facility] de Phone Number [facility] [address] [facility] [place] [address] * (ABNORMAL) Basic metabolic panel (01/21/2025 12:06 AM CDT) Pathologist [facility] Sodium 140 135 - 145 mmol/L Potassium, pl 4.2 3.3 - 4.9 mmol/L [facility] Chloride 106 97 - 110 mmol/L [facility] CO2 21(L) 22 - 32 mmol/L [facility] Anion gap 13 2 - 15 mmol/L [facility] BUN 23 6 - 25 mg/dL [facility] Creatinine 0.87 0.80 - 1.30 mg/dL [facility] Glucose 280(H) 70 - 199 mg/dL [facility] Comment: Interpretive Data Fasting glucose >/= [...] Calcium 7.5(L) 8.5 - 10.3 mg/dL STEPHANIE [facility] Blood 01/21/2025 12:0 6 AM CDT 01/21/2025 12:14 AM CDT Desire Ghotra [employer]ER LAB BLOOD ORDERABLES Fin al Result [facility] [address] Department [place] [address] * Critical Care (01/20/2025 10:26 PM CDT) Narrative Malcolm Valverde MD - 01/20/2025 10:26 PM CDT Malcolm Valverde MD 01/21/2025 8:55 AM Critical Care Performed by: Marco A Espinoza DNP Authorized by: Marco A Espinoza DNP CRITICAL CARE: Team: [facility] Shift: PM Level of Billing: Critical [...] plan with the ICU team and other medical/security system sales consultant staff, making frequent assessments and decisions [...] be considered if clinically indicated. POC Performer [phone] [facility] Blood 01/20/2025 8:23 PM CDT 01/20/2025 8:23 PM CDT Brayden Hopkins MD LAB POCT ORDERABLES - KATE CE Final Result Performing Organization Address [facility] Co de Phone Number [facility] [address] Department [employer] [place], [place] [id number] * POCT glucose (01/20/2025 5:30 PM CDT) [facility] Glucose, POC 122 70 - 199 mg/dL Comment: For Glucose values <35 mg/dl when Hematocrit is >60 mg/dl,the test may not accurately detect significant hypoglycemia,and testing in the Laboratory should be considered if clinically indicated. POC Performer [phone] [facility] Blood 01/20/2025 5:30 PM CDT 01/20/2025 5:30 PM CDT us Brayden Hopkins MD LAB POCT ORDERABLES - KATE CE Final Result Performing Organization Address [facility] Co de Phone Number [facility] [address] [place] [address] * Lactate (01/20/2025 5:10 PM CDT) [facility] Lactate 1.5 0.7 - 2.0 mmol/L Blood 01/20/2025 5:10 PM CDT 01/20/2025 5:36 PM CDT Kaelyn Gale NP LAB BLOOD ORDERABLES Final Result Performing Organization Address [facility] Co de Phone Number [facility] [address] Department of Laboratories [place], [place] [id number] * (ABNORMAL) Differential, auto (01/20/2025 5:10 PM CDT) Neutrophil abs 15.49(H) 1.50 - 6.50 K/cumm Imm gran abs 1.01(H) 0.00 - 0.10 K/cumm [facility] Lymphocyte abs 3.83(H) 0.80 - 3.30 K/cumm [facility] Monocyte abs 1.74(H) 0.20 - 0.80 K/cumm [facility] Eosinophil abs 0.13 0.00 - 0.50 K/cumm [facility] Basophil abs 0.14(H) 0.00 - 0.10 K/cumm [facility] Neutrophil pct 69.4 % [facility] Comment: Interpretive Data Percent cell count reference ranges are not reported, since discordance with absolute values may lead to misinterpretation of CBC data. Current Interpretive Data was last revised on 2018. Imm gran pct 4.5 % [facility] Comment: Interpretive Data Percent cell count reference ranges are not reported, since discordance with absolute values may lead to misinterpretation of CBC data. Current Interpretive Data was last revised on 2018. Lymphocyte pct 17.1 % [facility] Comment: Interpretive Data Percent cell count reference ranges are not reported, since discordance with absolute values may lead to misinterpretation of CBC data. Current Interpretive Data was last revised on 2018. Monocyte pct 7.8 % [facility] Comment: Interpretive Data Percent cell count reference ranges are not reported, since discordance with absolute values may lead to misinterpretation of CBC data. Current Interpretive Data was last revised on 2018. Eosinophil pct 0.6 % [facility] Comment: Interpretive Data Percent cell count reference ranges are not reported, since discordance with absolute values may lead to misinterpretation of CBC data. Current Interpretive Data was last revised on 2018. Basophil pct 0.6 % [facility] Comment: Interpretive Data Percent cell count reference ranges are not reported, since discordance with absolute values may lead to misinterpretation of CBC data. Current Interpretive Data was last revised on 2018. Blood 01/20/2025 5:10 PM CDT 01/20/2025 5:49 PM CDT Kaelyn Gale NP LAB BLOOD ORDERABLES Final Result Performing Organization Address City/[facility]/ZIP Co de Phone Number [facility] [address] Department [place] [address] * (ABNORMAL) CBC with auto differential (01/20/2025 5:10 PM CDT) [facility] WBC 22.34(H) 3.80 - 9.90 K/cumm Hgb 10.3(L) 13.0 - 17.5 g/dL [facility] Hct 31.4(L) 38.9 - 50.3 % [facility] Plt 326 150 - 400 K/cumm [facility] MPV 10.9 9.1 - 12.3 fL [facility] RBC 3.54(L) 4.30 - 5.80 M/cumm [facility] MCV 88.7 81.3 - 96.4 fL [facility] MCH 29.1 27.1 - 33.3 pg [facility] MCHC 32.8 32.3 - 35.7 g/dL [facility] RDW CV 16.8(H) 11.1 - 14.9 % [facility] RDW SD 52.4(H) 35.7 - 48.1 fL [facility] NRBC abs 0.03(H) 0.00 - 0.01 K/cumm [facility] Blood 01/20/2025 5:10 PM CDT 01/20/2025 5:49 PM CDT Kaelyn Gale NP LAB BLOOD ORDERABLES Final Result [facility] [address] Department [place] [address] * Transfuse RBC (01/20/2025 3:02 PM CDT) Blood Kaelyn Gale NP BLOOD TRANSFUSION ORDERABL ES Final Result [facility] [address] Department [place] [address] * TRANSTHORACIC ECHO (TTE) LIMITED/FOLLOW UP WO DOPPLER/CF WO CONTRAST (01/20/2025 2:17 PM CDT) LV EF 20-25 % CONS SCIMAGE Anatomical Region Laterality Modality Ultrasound 01/20/2025 12:5 4 PM CDT Narrative 01/20/2025 6:06 PM CDT [facility] [address] [place] [address] LIMITED ECHOCARDIOGRAM Patient Name: MAURICIO HEADLEY C : 1955 (69y 11m) Gender: M Study Date: 01/20/2025 12:54:10 PM Ht(Inch): 68 Wt(Lb): 161 BSA: 1.87 Lead Cashier: Location: [address] Order Provider: KAELYN GALE BMI: 24.48 [...] Procedure Note Jasen Mclaughlin MD - 01/20/2025 [place] [id number] [address] LIMITED ECHOCARDIOGRAM Patient Name: MAURICIO HEADLEY C : 1955 (69y 11m) Gender: M Study Date: 01/20/2025 12:54:10 PM Ht(Inch): 68 Wt(Lb): 161 BSA: 1.87 Lead Cashier: Location: [address] Order Provider: KAELYN GALE BMI: 24.48 [...] esult * Potassium (01/20/2025 2:14 PM CDT) [facility] Potassium, pl 4.2 3.3 - 4.9 mmol/L Blood 01/20/2025 2:14 PM CDT 01/20/2025 2:45 PM CDT Kaelyn Gale NP LAB BLOOD ORDERABLES Final Result Performing Organization Address [facility]/ZIP Co de Phone Number [facility] [address] Department [place] [address] * Prepare RBC: 1 Units (01/20/2025 12:10 PM CDT) [facility] Product code [id number] Unit Number [id number] [facility] Product Blood Type [facility] Dispense Status PRESUMED TRANSFUSED [facility] Blood 01/20/2025 12:1 0 PM CDT Narrative [facility] - 01/21/2025 11:34 AM CDT Other indication->GIB/ hypovolemia Are special requirements needed? (All products are leukoreduced and CMV- safe)- >No Date required:-[id number] LRRBC # of [id number] Reasons:-Other (specify)} Kaelyn Gale NP BLOOD BANK PRODUCT ORDERAB LES Final Result Performing Organization Address [facility]/ZIP Co de Phone Number [facility] [address] Department [place] [address] * (ABNORMAL) Lactate (01/20/2025 11:25 AM CDT) [facility] Lactate 3.6(H) 0.7 - 2.0 mmol/L Blood 01/20/2025 11:2 5 AM CDT 01/20/2025 11:32 AM CDT Kaelyn Gale NP LAB BLOOD ORDERABLES Final Result [facility] [address] [place] [address] * (ABNORMAL) CBC without differential (01/20/2025 11:25 AM CDT) [facility] WBC 21.74(H) 3.80 - 9.90 K/cumm Hgb 9.1(L) 13.0 - 17.5 g/dL [facility] Hct 29.2(L) 38.9 - 50.3 % [facility] Plt 317 150 - 400 K/cumm [facility] MPV 11.1 9.1 - 12.3 fL [facility] RBC 3.20(L) 4.30 - 5.80 M/cumm [facility] MCV 91.3 81.3 - 96.4 fL [facility] MCH 28.4 27.1 - 33.3 pg [facility] MCHC 31.2(L) 32.3 - 35.7 g/dL [facility] RDW CV 17.4(H) 11.1 - 14.9 % [facility] RDW SD 56.9(H) 35.7 - 48.1 fL [facility] NRBC abs 0.02(H) 0.00 - 0.01 K/cumm [facility] Blood 01/20/2025 11:2 5 AM CDT 01/20/2025 11:33 AM CDT Kaelyn Gale NP LAB BLOOD ORDERABLES Final Result Performing Organization Address [facility] Co de Phone Number [facility] [address] [place] [address] * (ABNORMAL) POCT glucose (01/20/2025 11:20 AM CDT) Glucose, POC 227(H) 70 - 199 mg/dL Comment: For Glucose values <35 mg/dl when Hematocrit is >60 mg/dl,the test may not accurately detect significant hypoglycemia,and testing in the Laboratory should be considered if clinically indicated. POC Performer [id number] [facility] Blood 01/20/2025 11:2 0 AM CDT 01/20/2025 11:20 AM CDT us Brayden Hopkins MD LAB POCT ORDERABLES - KATE CE Final Result Performing Organization Address [facility] Co de Phone Number [facility] [address] Department [place] [address] * POCT glucose (01/20/2025 7:48 AM CDT) Glucose, POC 167 70 - 199 mg/dL Comment: For Glucose values <35 mg/dl when Hematocrit is >60 mg/dl,the test may not accurately detect significant hypoglycemia,and testing in the Laboratory should be considered if clinically indicated. POC Performer [phone] [facility] Blood 01/20/2025 7:48 AM CDT 01/20/2025 7:48 AM CDT Brayden Hopkins MD LAB POCT ORDERABLES - KATE CE Final Result Performing Organization Address [facility] Co de Phone Number [facility] [address] [place] [address] * Critical Care (01/20/2025 7:03 AM CDT) Narrative Malcolm Valverde MD - 01/20/2025 7:03 AM CDT Malcolm Valverde MD 01/21/2025 8:55 AM Critical Care Performed by: aKelyn Gale NP Authorized by: Kaelyn Gale NP CRITICAL CARE: Team: [facility] Shift: AM Level of Billing: Subsequent [...] plan with the patient's team and other medical/security system sales consultant staff. This time was in addition [...] signed by: Mau Roland M.D. Kaelyn Gale SHRIMP PACKER IMG XR PROCEDURES Final Re sult * Lactate (01/20/2025 5:40 AM CDT) Pathologist [facility] Lactate 2.0 0.7 - 2.0 mmol/L Blood 01/20/2025 5:40 AM CDT 01/20/2025 5:50 AM CDT Elsa Doe NP LAB BLOOD ORDERABLES Madhavi de luna Result STEPHANIE [facility] [address] Department [place] [address] * eGFR (01/20/2025 5:40 AM CDT) Pathologist [facility] eGFR >90 >=60 mL/min/1. 73 m2 Comment: [...] Hopkins MD LAB BLOOD ORDERABLES Final Result [facility] [address] Department [place] [address] * (ABNORMAL) CBC without differential (01/20/2025 5:40 AM CDT) WBC 21.31(H) 3.80 - 9.90 K/cumm Hgb 9.3(L) 13.0 - 17.5 g/dL [facility] Hct 29.6(L) 38.9 - 50.3 % [facility] Plt 220 150 - 400 K/cumm [facility] MPV 11.2 9.1 - 12.3 fL [facility] RBC 3.27(L) 4.30 - 5.80 M/cumm [facility] MCV 90.5 81.3 - 96.4 fL [facility] MCH 28.4 27.1 - 33.3 pg [facility] MCHC 31.4(L) 32.3 - 35.7 g/dL [facility] RDW CV 17.3(H) 11.1 - 14.9 % [facility] RDW SD 55.4(H) 35.7 - 48.1 fL [facility] NRBC abs 0.00 0.00 - 0.01 K/cumm [facility] Blood 01/20/2025 5:40 AM CDT 01/20/2025 5:55 AM CDT us Kaelyn Gale NP LAB BLOOD ORDERABLES Final Result Performing Organization Address City/[facility] Co de Phone Number [facility] [address] [facility] [place] [address] * Phosphorus (01/20/2025 5:40 AM CDT) [facility] Phosphorus, pl 3.0 2.3 - 4.5 mg/dL Blood 01/20/2025 5:40 AM CDT 01/20/2025 5:53 AM CDT us Desire Harrellor [employer]ER LAB BLOOD ORDERABLES Fin al Result Performing Organization Address [facility] Co de Phone Number [facility] [address] [facility] [place] [address] * Magnesium (01/20/2025 5:40 AM CDT) [facility] Magnesium 2.0 1.4 - 2.5 mg/dL Blood 01/20/2025 5:40 AM CDT 01/20/2025 5:53 AM CDT Desire Harrellor SHR[employer]ER LAB BLOOD ORDERABLES Fin al Result Performing Organization Address [facility] de Phone Number [facility] [address] [place] [address] * (ABNORMAL) Basic metabolic panel (01/20/2025 5:40 AM CDT) [facility] Sodium 139 135 - 145 mmol/L Potassium, pl 5.3(H) 3.3 - 4.9 mmol/L [facility] Comment:Hemolyzed; potassium value may be falsely elevated by as much as 0.6 - 1.0 mmol/L. Suggest redraw and reanalysis Chloride 106 97 - 110 mmol/L [facility] CO2 22 22 - 32 mmol/L [facility] Anion gap 11 2 - 15 mmol/L [facility] BUN 35(H) 6 - 25 mg/dL [facility] Creatinine 0.68(L) 0.80 - 1.30 mg/dL [facility] Glucose 155 70 - 199 mg/dL [facility] Comment: Interpretive Data Fasting glucose >/= [...] 2022. Calcium 7.8(L) 8.5 - 10.3 mg/dL [facility] Blood 01/20/2025 5:40 AM CDT 01/20/2025 5:41 AM CDT Brayden Hopkins MD LAB BLOOD ORDERABLES Final Result [facility] [address] Department [place] [address] * (ABNORMAL) CBC without differential (01/20/2025 12:04 AM CDT) WBC 22.37(H) 3.80 - 9.90 K/cumm Hgb 10.3(L) 13.0 - 17.5 g/dL [facility] Hct 32.7(L) 38.9 - 50.3 % [facility] Plt 325 150 - 400 K/cumm [facility] MPV 11.5 9.1 - 12.3 fL [facility] RBC 3.67(L) 4.30 - 5.80 M/cumm [facility] MCV 89.1 81.3 - 96.4 fL [facility] Comment:MCV delta due to garry arent blood transfusion. This result has been called to Young CURRY by [email or web address] on 01/20/2025 01:24:08. MCH 28.1 27.1 - 33.3 pg [facility] MCHC 31.5(L) 32.3 - 35.7 g/dL [facility] RDW CV 16.7(H) 11.1 - 14.9 % [facility] RDW SD 53.7(H) 35.7 - 48.1 fL [facility] NRBC abs 0.02(H) 0.00 - 0.01 K/cumm [facility] Blood 01/20/2025 12:0 4 AM CDT 01/20/2025 12:36 AM CDT Kaelyn Gale SHR[employer]ER LAB BLOOD ORDERABLES Final Result [facility] [address] [facility] [address] * Potassium (01/20/2025 12:04 AM CDT) [facility] Potassium, pl 4.1 3.3 - 4.9 mmol/L Blood 01/20/2025 12:0 4 AM CDT 01/20/2025 12:36 AM CDT Elsa Doe SHR[employer]ER LAB BLOOD ORDERABLES Madhavi l Result Performing Organization Address City/[facility]/ZIP Co de Phone Number [facility] [address] [place] [address] * Magnesium (01/20/2025 12:04 AM CDT) [facility] Magnesium 1.9 1.4 - 2.5 mg/dL Blood 01/20/2025 12:0 4 AM CDT 01/20/2025 12:36 AM CDT Elsa Doe SHR[employer] P[employer]ER LAB BLOOD ORDERABLES Madhavi l Result Performing Organization Address City/[facility]/ZIP Co de Phone Number [facility] [address] [place] [address] * POCT glucose (01/19/2025 8:02 PM CDT) Glucose, POC 142 70 - 199 mg/dL Comment: For Glucose values <35 mg/dl when Hematocrit is >60 mg/dl,the test may not accurately detect significant hypoglycemia,and testing in the Laboratory should be considered if clinically indicated. POC Performer [phone] [facility] Blood 01/19/2025 8:02 PM CDT 01/19/2025 8:02 PM CDT Brayden Hopkins MD LAB POCT ORDERABLES - KATE CE Final Result Performing Organization Address [facility]/ZIP Co de Phone Number [facility] [address] Department [place] [address] * Critical Care (01/19/2025 7:49 PM CDT) Narrative Malcolm Valverde MD - 01/19/2025 7:49 PM CDT Malcolm Valverde MD 01/20/2025 7:53 AM Critical Care Performed by: Elsa Doe NP Authorized by: Elsa Doe NP CRITICAL CARE: Team: [facility] Shift: PM Level of Billing: Subsequent [...] plan with the patient's team and other medical/security system sales consultant staff. This time was in addition [...] RBC (01/19/2025 5:51 PM CDT) Blood Result [facility] BLOOD TRANSFUSION ORDERABLES Final Result Performing Organization Address City/[facility]/ZIP Co de Phone Number [facility] [address] Department [place] [address] * POCT glucose (01/19/2025 5:49 PM CDT) [facility] Glucose, POC 164 70 - 199 mg/dL Comment: For Glucose values <35 mg/dl when Hematocrit is >60 mg/dl,the test may not accurately detect significant hypoglycemia,and testing in the Laboratory should be considered if clinically indicated. POC Performer [phone] [facility] Blood 01/19/2025 5:49 PM CDT 01/19/2025 5:49 PM CDT us Brayden Hopkins MD LAB POCT ORDERABLES - KATE CE Final Result Performing Organization Address City/[facility]/ZIP Co de Phone Number [facility] [address] Department [place] [address] * (ABNORMAL) Lactate (01/19/2025 5:47 PM CDT) [facility] Lactate 2.1(H) 0.7 - 2.0 mmol/L Blood 01/19/2025 5:47 PM CDT 01/19/2025 5:52 PM CDT Narrative [facility] - 01/19/2025 6:33 PM CDT Send with post transfusion CBC us Kaelyn Gale NP LAB BLOOD ORDERABLES Final Result [facility] [address] Department [place] [address] * (ABNORMAL) CBC without differential (01/19/2025 5:47 PM CDT) [facility] WBC 23.48(H) 3.80 - 9.90 K/cumm Hgb 11.3(L) 13.0 - 17.5 g/dL [facility] Hct 38.4(L) 38.9 - 50.3 % [facility] Plt 323 150 - 400 K/cumm [facility] MPV 10.8 9.1 - 12.3 fL [facility] RBC 3.92(L) 4.30 - 5.80 M/cumm [facility] MCV 98.0(H) 81.3 - 96.4 fL [facility] MCH 28.8 27.1 - 33.3 pg [facility] MCHC 29.4(L) 32.3 - 35.7 g/dL [facility] RDW CV 16.4(H) 11.1 - 14.9 % [facility] RDW SD 57.1(H) 35.7 - 48.1 fL [facility] NRBC abs 0.02(H) 0.00 - 0.01 K/cumm [facility] Blood 01/19/2025 5:47 PM CDT 01/19/2025 5:53 PM CDT Kaelyn Gale NP LAB BLOOD ORDERABLES Final Result Performing Organization Address City/State/[facility] Co de Phone Number [facility] [address] Department [place] [address] * Critical Care (01/19/2025 4:55 PM CDT) Narrative Malcolm Valverde MD - 01/19/2025 4:55 PM CDT Malcolm Valverde MD 01/20/2025 7:53 AM Critical Care Performed by: Kaelyn Gale NP Authorized by: Kaelyn Gale NP CRITICAL CARE: Team: [facility] Shift: AM Level of Billing: Initial [...] plan with the patient's team and other medical/security system sales consultant staff. This time was in addition [...] 01/19/2025 2:34 PM Admit Type: Inpatient Room: [facility] Date of : 1955 Instrument [...] physician, the nurse, the anesthesiologist and the chief ophthalmic technician in the pre-procedure area in the [...] Units (01/19/2025 2:07 PM CDT) Pathologist [facility] Product code [id number] Unit Number [id number] [facility] Product Blood Type BPOS [facility] Dispense Status PRESUMED TRANSFUSED [facility] Blood 01/19/2025 2:07 PM CDT Narrative [facility] - 01/21/2025 11:34 AM CDT Are special requirements needed? (All products are leukoreduced and CMV- safe)- >No Date required:-[id number] LRRBC # of [id number] Reasons:-Hemorrhagic shock/Life-threatening bleeding} Bella MCGUIRE BLOOD BANK PRODUCT ORDERABLE S Final Result [facility] [address] Department [place] [address] * (ABNORMAL) Hemoglobin and hematocrit (01/19/2025 12:37 PM CDT) Hgb 9.7(L) 13.0 - 17.5 g/dL Hct 30.4(L) 38.9 - 50.3 % [facility] Blood 01/19/2025 12:3 7 PM CDT 01/19/2025 1:02 PM CDT Bella MCGUIRE LAB BLOOD ORDERABLES Final R esult [facility] [address] Department [place] [address] * XR Chest 1 View (01/19/2025 12:22 [...] be considered if clinically indicated. POC Performer [phone] STEPHANIE [facility] Blood 01/19/2025 12:1 1 PM CDT 01/19/2025 12:11 PM CDT Brayden Hopkins MD LAB POCT ORDERABLES - KATE CE Final Result Performing Organization Address City/[facility]/ZIP Co de Phone Number [facility] [address] Department [place] [place] [address] * NT-Pro BNP - Add on lab test (01/19/2025 11:45 AM CDT) Acceptable Yes Blood 01/19/2025 11:4 5 AM CDT 01/19/2025 11:45 AM CDT Narrative [facility] - 01/19/2025 11:46 AM CDT Name of Test->NT-Pro BNP Balbina Mac NP LAB BLOOD ORDERABLES Fi nal Result Performing Organization Address [facility] Co de Phone Number [facility] [address] Department [place] [address] * Blood culture Blood (01/19/2025 10:41 AM CDT) Report Final Report: No growth Blood 01/19/2025 10:4 1 AM CDT 01/19/2025 11:35 AM CDT Narrative [facility] - 01/24/2025 1:01 PM CDT Collection->Peripheral [...] organism identification may be performed using the [employer] Blood Culture Identification panel. This assay detects microbial DNA in a blood culture broth. This assay has been cleared by the [place] Food and Drug Administration and its performance characteristics have been verified by the [facility]. Interpretive data was last revised on November 09, 2022. Eric Neal MD LAB MICROBIOLOGY - GENERAL ORDE RABLES Final Result [facility] [address] Department of [employer] [place], [place] [id number] * Type and screen (01/19/2025 8:52 AM CDT) ABO Rh B Positive Esme, indirect Negative [facility] Blood 01/19/2025 8:52 AM CDT 01/19/2025 8:56 AM CDT Narrative [facility] - 01/19/2025 9:56 AM CDT Has the patient had Daratumumab or Isatuximab in the past 6 months?->Unknown Bella MCGUIRE LAB BLOOD BANK TEST ORDERABL ES Final Result Performing Organization Address [facility]/ZIP Co de Phone Number [facility] [address] Department of [employer] [place], [place] [id number] * C. difficile testing Stool (01/19/2025 8:11 AM CDT) Pathologist [facility] GDH Result Negative Negative Toxin Result Negative Negative [facility] C. diff result Negative, free toxin Negative, free toxin [facility] C. diff interp Negative for toxigenic Clostridioides (Clostridium) difficile. Analysis was performed using a glutamate dehydrogenase antigen detection assay combined with a C. difficile toxin detection assay. [facility] Stool 01/19/2025 8:11 AM CDT 01/19/2025 3:24 PM CDT Bella MCGUIRE LAB MICROBIOLOGY - GENERAL O RDERABLES Final Result Performing Organization Address City/[facility]/ZIP Co de Phone Number [facility] [address] Department of [employer] [place], [place] [phone] * (ABNORMAL) Lactate (01/19/2025 8:11 AM CDT) Pathologist [facility] Lactate 4.1(C) 0.7 - 2.0 mmol/L Comment:Critical result call ed to and read back by Yulisa CURRY on 01/19/[id number] to [id number] Blood 01/19/2025 8:11 AM CDT 01/19/2025 8:34 AM CDT Bella MCGUIRE LAB BLOOD ORDERABLES Final R esult Performing Organization Address City/[facility]/ZIP Co de Phone Number STEPHANIE [facility] [address] Department [employer] [place], [place] [phone] * eGFR (01/19/2025 8:11 AM CDT) eGFR [...] LAB BLOOD ORDERABLES Final R esult [facility]PH[facility] [address] Department [place] [address] * (ABNORMAL) Pro B-type natriuretic peptide (01/19/2025 [...] MD LAB BLOOD ORDERABLES Final Result [facility]PH[facility] [address] Department [place] [address] * (ABNORMAL) Occult blood gastric (01/19/2025 8:11 AM CDT) Occult blood, gastric Positive(A ) Negative Gastric 01/19/2025 8:11 AM CDT 01/19/2025 8:50 AM CDT [facility] - 01/19/2025 8:54 AM CDT Stool Fluid Detail:->Gastric Bella MCGUIRE LAB BODY FLUIDS AND STOOLS O RDERABLES Final Result Performing Organization Address [facility] Co de Phone Number [facility] [address] [facility] [place] [address] * aPTT (01/19/2025 8:11 AM CDT) aPTT [...] ORDERABLES Final R esult Performing Organization Address [facility] Co de Phone Number [facility] [address] [facility] [address] * (ABNORMAL) Protime-INR (01/19/2025 8:11 AM CDT) PT 14.6(H) 9.7 - 13.0 sec INR 1.34(H) 0.90 - 1.20 [facility] Comment: Interpretive data Oral anticoagulant therapeutic ranges: Venous thromboembolism prophylaxis or treatment: 2.0-3.0 CARDIOLOGY Standard range: 2.0-3.0 High-intensity range: 2.5-3.5 Refer to indication-specific guidelines for appropriate target ranges for prosthetic heart valve replacement. Current interpretive data was last revised on 2019. Blood 01/19/2025 8:11 AM CDT 01/19/2025 8:41 AM CDT Bella MCGUIRE LAB BLOOD ORDERABLES Final R esult [facility] [address] [facility] [place] [address] * Lactate dehydrogenase (LD) (01/19/2025 8:11 AM CDT) Lactate dehydrogenase (LDH) 177 100 - 250 Units/L Blood 01/19/2025 8:11 AM CDT 01/19/2025 8:41 AM CDT Bella MCGUIRE LAB BLOOD ORDERABLES Final R esult Performing Organization Address [facility] Co de Phone Number [facility] [address] [place] [address] * (ABNORMAL) Blood gas, arterial (01/19/2025 8:11 AM CDT) pH, Art 7.43 7.35 - 7.45 PCO2, Arterial 30(L) 35 - 45 mmHg [facility] PO2, Arterial 162(H) 83 - 108 mmHg [facility] HCO3 Art (Calculated) 20 20 - 30 mmol/L [facility] BE, art -3 mmol/L [facility] Comment: Interpretive Data No Reference Range Established Current Interpretive Data was last revised on 2017 O2 Sat Art (Calculated) 100(H) 94 - 98 % [facility] Blood 01/19/2025 8:11 AM CDT 01/19/2025 8:34 AM CDT Bella MCGUIRE LAB BLOOD ORDERABLES Final R esult Performing Organization Address City/[facility]/ZIP Co de Phone Number [facility] [address] Department [employer] [place], [place] [phone] * (ABNORMAL) Comprehensive metabolic panel (01/19/2025 8:11 AM CDT) Sodium 138 135 - 145 mmol/L Potassium, pl 4.9 3.3 - 4.9 mmol/L [facility] Chloride 105 97 - 110 mmol/L [facility] CO2 18(L) 22 - 32 mmol/L [facility] Anion gap 15 2 - 15 mmol/L [facility] BUN 53(H) 6 - 25 mg/dL [facility] Creatinine 0.98 0.80 - 1.30 mg/dL [facility] Glucose 300(H) 70 - 199 mg/dL [facility] Comment: Interpretive Data Fasting glucose >/= [...] 2022. Calcium 8.0(L) 8.5 - 10.3 mg/dL [facility] Bilirubin, total <0.2 0.1 - 1.2 mg/dL [facility] Protein, pl 5.4(L) 6.5 - 8.5 g/dL [facility] Albumin 2.5(L) 3.5 - 5.0 g/dL [facility] Alk phos 87 40 - 130 Units/L [facility] ALT 37 7 - 55 Units/L [facility] AST 22 10 - 50 Units/L [facility] Blood 01/19/2025 8:11 AM CDT 01/19/2025 8:41 AM CDT us Bella MCGUIRE LAB BLOOD ORDERABLES Final R esult [facility] [address] Department [place] [address] * (ABNORMAL) Hemoglobin and hematocrit (01/19/2025 8:04 AM CDT) Hgb 11.7(L) 13.0 - 17.5 g/dL Hct 37.5(L) 38.9 - 50.3 % [facility] Blood 01/19/2025 8:04 AM CDT 01/19/2025 8:04 AM CDT us Bella MCGUIRE LAB BLOOD ORDERABLES Final R esult Performing Organization Address City/[facility]/ZIP Co de Phone Number [facility] [address] Department of [employer] [place], [place] [phone] * (ABNORMAL) POCT glucose (01/19/2025 7:48 AM CDT) [facility] Glucose, POC 240(H) 70 - 199 mg/dL Comment: For Glucose values <35 mg/dl when Hematocrit is >60 mg/dl,the test may not accurately detect significant hypoglycemia,and testing in the Laboratory should be considered if clinically indicated. POC Performer [phone] [facility] Blood 01/19/2025 7:48 AM CDT 01/19/2025 7:48 AM CDT us Brayden Hopkins MD LAB POCT ORDERABLES - KATE CE Final Result Performing Organization Address [facility] Co de Phone Number [facility] [address] Department [employer] [place], [place] [phone] * (ABNORMAL) CBC with auto differential (01/19/2025 4:54 AM CDT) [facility] WBC 24.23(H) 3.80 - 9.90 K/cumm Hgb 11.3(L) 13.0 - 17.5 g/dL [facility] Hct 37.0(L) 38.9 - 50.3 % [facility] Plt 462(H) 150 - 400 K/cumm [facility] MPV 11.2 9.1 - 12.3 fL [facility] RBC 3.83(L) 4.30 - 5.80 M/cumm [facility] MCV 96.6(H) 81.3 - 96.4 fL [facility] MCH 29.5 27.1 - 33.3 pg [facility] MCHC 30.5(L) 32.3 - 35.7 g/dL [facility] RDW CV 14.0 11.1 - 14.9 % [facility] RDW SD 49.1(H) 35.7 - 48.1 fL [facility] NRBC abs 0.00 0.00 - 0.01 K/cumm [facility] Morphologic Screen Results confirmed by manual morphology review. [facility] Blood 01/19/2025 4:54 AM CDT 01/19/2025 5:13 AM CDT us Tucker MCGUIRE LAB BLOOD ORDERABLES Final Result [facility] [address] Department [place] [address] * (ABNORMAL) Manual Differential (01/19/2025 4:54 AM CDT) Differential Manual Cells Counted 118 [facility] Neutrophil abs 20.33(H) 1.50 - 6.50 K/cumm [facility] Lymphocyte abs 1.65 0.80 - 3.30 K/cumm [facility] Monocyte abs 2.06(H) 0.20 - 0.80 K/cumm [facility] Basophil abs 0.19(H) 0.00 - 0.10 K/cumm [facility] Neutrophil pct 83.9 % [facility] Comment: Interpretive Data Percent cell count reference ranges are not reported, since discordance with absolute values may lead to misinterpretation of CBC data. Current Interpretive Data was last revised on 2018. Lymphocyte pct 6.8 % [facility] Comment: Interpretive Data Percent cell count reference ranges are not reported, since discordance with absolute values may lead to misinterpretation of CBC data. Current Interpretive Data was last revised on 2018. Monocyte pct 8.5 % [facility] Comment: Interpretive Data Percent cell count reference ranges are not reported, since discordance with absolute values may lead to misinterpretation of CBC data. Current Interpretive Data was last revised on 2018. Basophil pct 0.8 % [facility] Comment: Interpretive Data Percent cell count reference ranges are not reported, since discordance with absolute values may lead to misinterpretation of CBC data. Current Interpretive Data was last revised on 2018. RBC morphology Normal [facility] Platelet estimate Increased( A) [facility] Morphology scrn See Comment [facility] Comment:PLT: Platelet morpho logy normal Blood 01/19/2025 4:54 AM CDT 01/19/2025 5:13 AM CDT us Tucker MCGUIRE LAB BLOOD ORDERABLES Final Result [facility] [address] Department [place] [address] * eGFR (01/19/2025 12:18 AM CDT) eGFR [...] ORDERABLES Fin al Result Performing Organization Address [facility]/ZIP Co de Phone Number [facility] [address] [place] [address] * (ABNORMAL) Basic metabolic panel (01/19/2025 12:18 AM CDT) Pathologist [facility] Sodium 143 135 - 145 mmol/L Potassium, pl 4.2 3.3 - 4.9 mmol/L [facility] Chloride 100 97 - 110 mmol/L [facility] CO2 24 22 - 32 mmol/L [facility] Anion gap 19(H) 2 - 15 mmol/L [facility] BUN 37(H) 6 - 25 mg/dL [facility] Creatinine 0.95 0.80 - 1.30 mg/dL [facility] Glucose 198 70 - 199 mg/dL [facility] Comment: Interpretive Data Fasting glucose >/= [...] 2022. Calcium 8.4(L) 8.5 - 10.3 mg/dL [facility] Blood 01/19/2025 12:1 8 AM CDT 01/19/2025 12:46 AM CDT Desire Ghotra NP LAB BLOOD ORDERABLES Fin al Result Performing Organization Address City/[facility] Co de Phone Number [facility] [address] Department [place] [address] * (ABNORMAL) Hemoglobin A1c (12/17/2024 12:55 PM CDT) Hgb A1C 6.4(H) 4.0 - 5.6 % Estimated Average Glucose 137 mg/dL [facility] Comment: The ADA recommends reporting an estimated Average Glucose (eAG) with all Hemoglobin A1c results using the equation derived from a study of 507 normal and diabetic adults. Minority populations were underrepresented and children were not included. (Diabetes Care 31:8711-2356, 2008). The eAG is not equivalent to a fasting glucose. Blood 12/17/2024 12:5 5 PM CDT 12/17/2024 1:09 PM CDT us Carlyn Minaya MD LAB BLOOD ORDERABLES Final Result [facility] [address] Department [place] [address] * (ABNORMAL) Lipid panel (12/17/2024 [...] revised on 2018. Triglycerides 125 <=149 mg/dL [facility] Comment: Interpretive Data Ages < or [...] revised on 2018. HDL 38(L) >=40 mg/dL [facility] Comment: Interpretive Data Ages < or [...] on 2018. LDL, calculated 79 <=129 mg/dL [facility] Comment: Interpretive Data Ages < or [...] in Children and Adolescents. Pediatrics 2011;128:S213 2. NMEP Expert Panel. Circulation 2004;110:227 3. Richie Ruby al. DEMETRIUS Cardiol. 2019February 05;5(5):540-548. doi: 10.1001/jamacardio.2020.0013 Current Interpretive Data was last revised on 2024. Non-HDL Cholesterol 101 mg/dL [facility] Comment: Interpretive Data Ages < or [...] last revised on 2018. Chol/HDL ratio 4 [facility] Blood 12/17/2024 12:5 5 PM CDT 12/17/2024 1:09 PM CDT us Carlyn Minaya MD LAB BLOOD ORDERABLES Final Result [facility] [address] Department [place] [address] * CT Chest WO Contrast F/U Lung Screen Protocol (12/06/2022 8:05 AM FINISHED YARN EXAMINER) Anatomical Region Laterality Modality Chest N/A Computed Tomogra phy 12/07/2022 7:38 AM FINISHED YARN EXAMINER Narrative 12/07/2022 7:48 AM FINISHED YARN EXAMINER EXAM DESCRIPTION: CT CHEST WO CONTRAST F/U [...] 12/07/2022 7:48 AM - Electronically signed by Shannno Gardiner M.D. TW: CHELLE Report ID: [id number] Reading Location: [id number] Procedure Note Shannon Gardiner MD - 12/07/2022 [...] Shannon Gardiner M.D. TW: TW Report ID: [id number] Reading Location: [place] [address] Chacha Velazquez MD IMG CT PROCEDURES Final Resul t from Last 3 Months or Most Recently Relevant to Health Maintenance Insurance UHC MEDICARE ADVANTAGE UHC MEDICARE ADVANTAGE Advance Directives For more information, please contact: [phone] * Full Code (Latest Code Status on File) Date Activated Date Inactivated Comments 02/18/2025 7:59 PM 03/11/2025 9:12 PM * Full Code Date Activated Date Inactivated Comments 01/15/2025 2:57 PM 01/25/2025 3:50 PM * Full Code Date Activated Date Inactivated Comments 12/22/2024 11:55 AM 12/31/2024 6:37 PM * Full Code Date Activated Date Inactivated Comments 11/10/2024 11:01 AM 11/10/2024 5:45 PM Care Teams Material Lister Relationship Specialty Start Date End Date Radha Epps, JUANA [address] [address] PCP - General Nurse Practitioner 12/10/24 Richi Healy MD [address] [place] [address] Referring Physician Cardiology 11/13/24 Carlyn Minaya MD [address] [facility] [address] [place] [address] Consulting Physician Cardiothoracic Surgery 11/13/24
--- OUTSIDE RECORDS SUMMARY | 2025-04-20 23:07 | XMS_ITS | Encounter Summary ---
Author Organization [facility] Healthcare Address [address] [place] [address] Care Team Providers Care Field Irrigation Worker Name Role Phone Richi Healy MD Unavailable Carlyn Minaya MD Unavailable [phone] Radha Epps NP Primary Care Provider Encounter Details Date Type Department Care Team (Latest Contact Info) Description 04/20/2025 9:05 AM CDT Hospital Encounter [facility] [address] [place] [address] Chronic combined systolic and diastolic heart failure (HCC) Social History Tobacco Use Types Packs/Day Years Used Date Smoking Tobacco: Former Cigarettes 1.3 51.1 1 974 - 11/09/2024 [facility] Utilities Answer Date Recorded In the past 12 months has [employer], gas, oil, or water Tastemaker threatened to shut off services in your home? No 02/19/2025 Social Connection and Isolation Panel [NHANES] A nswer Date Recorded In a typical week, how many times do you talk on the phone with family, friends, or neighbors? Twice a week 02/19/2025 How often do you get together with friends or re latives? Twice a week 02/19/2025 How often do you attend adventist or caodaism serv ices? Never 02/19/2025 Do you belong to any clubs o r organizations such as adventist groups, unions, fraternal or athletic groups, or [...] any time in the past 12 [facility], were you homeless or living in a fdc (including now)? No 02/19/2025 Personal Safety Answer Date Recorded Have you ever been in or are you currently in a harmful physical or emotional relationship or is someone making you feel afraid or unsafe? 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
--- OUTSIDE RECORDS SUMMARY | 2025-04-20 23:07 | XMS_ITS ---
Author Organization Unknown Address [address] [place] [id number] Phone Care Team Providers Care Quality Control Representative Name Role Phone HAJA MARCH Attending Unavailable [...] femoral head remains in articulation. There is ozac-nz-ojxllddx left hip osteoarthritis. 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 IMPRESSION: ? ? Interval reduction and nailing of an intertrochanteric proximal left femur fracture. ? ? Yohv-mg-xrkhofaf left hip osteoarthritis. THIS IS AN ELECTRONICALLY VERIFIED FINAL REPORT 09/10/2023 1:38 PM - Electronically signed by Jeffrey Brock M.D. MF: [id number] Report ID: [id number] Reading Location: [id number] Social History Type Status Start Date End [...]
--- NOTE | 2025-04-20 23:18 | ED.CPR ---
HPI - CPR General Chief Complaint: Cardiac Arrest/CPR Stated Complaint: heart Time Seen by Provider: 04/20/25 22:56 Source: EMS Mode of arrival: EMS History of Present Illness HPI narrative: 70 years old white male came to the ED by ambulance with trouble breathing. Patient called EMT, lives by himself, on arrival patient was able to complain about a shortness of breath then started deteriorating, LMA was placed by EMT, could not fly him, brought him to the emergency room for further evaluation. CPR was started 12-15 minutes prior to arrival, CPR continued, monitor showing bradycardia, CPR continued , PA, CPR protocol continued for a total 46 minutes , CPR was called off Initially LMA was removed, orotracheal intubation was done by me with a lot of jah pharyngeal secretions required frequent suction. Related Data Home Medications ?Medication ?Instructions ?Recorded ?Confirmed ?Last Taken ?Type amlodipine 10 mg tablet 10 mg PO DAILY 06/20/23 06/20/23 Unknown History aspirin 81 mg tablet,delayed 81 mg PO DAILY 06/20/23 06/20/23 Unknown History release (Adult Low Dose Aspirin) benazepril 40 mg tablet 40 mg PO DAILY 06/20/23 06/20/23 Unknown History carvedilol 25 mg tablet 25 mg PO BID 06/20/23 06/20/23 Unknown History clonidine HCl 0.2 mg tablet 0.2 mg PO TID 06/20/23 06/20/23 Unknown History clopidogrel 75 mg tablet 75 mg PO DAILY 06/20/23 06/20/23 Unknown History empagliflozin 10 mg tablet 10 mg PO DAILY 06/20/23 06/20/23 Unknown History (Jardiance) metformin 1,000 mg tablet 1,000 mg PO DAILY 06/20/23 06/20/23 Unknown History simvastatin 20 mg tablet 20 mg PO DAILY 06/20/23 06/20/23 Unknown History Allergies Allergy/AdvReac Type Severity Reaction Status Date / Time No Known Allergies Allergy Verified 06/20/23 11:00 Review of Systems Review of Systems: ROS unobtainable: Yes unobtainable due to medical condition [facility], [facility] Past Medical History Medical History (Updated 04/20/25 @ 23:40 by Kevin Lr MD) CABG (coronary artery bypass graft) planned CHF (congestive heart failure) CAD (coronary artery disease) Diabetes mellitus Dyslipidemia Hypertension Exam Narrative: General appearance: Well-developed, well-nourished Skin: pale, cold, no diaphoresis Head: Normocephalic, nontraumatic Eyes: pupils dilated, not reactive to light ENT: Oropharynx , a lot of frothy secretions Neck: distended jugular pains Chest and respiratory: diminution of air entry bilaterally, agonal breathing after removing the LMA for orotracheal intubation Heart: initially bradycardia with very weak heart sounds later no heart sounds Abdomen: Soft, distended Vascular: thready pulses, Oziel femoral arteries later at the end of the code no pulses Neurologic: unresponsive, pulseless Course Course Emergency Course: patient came to the ED with cardiopulmonary arrest, LMA in place, CPR was started prior to arrival, continued in the ED. Initially Oziel arrhythmia with thready pulses, CPR continued, LMA removed, orotracheal intubation was done, , PEA. PATIENT WAS PRONOUNCED AT 22:49 P.M. LATER FAMILY MEMBERS ARRIVED TO THE ED. Procedures Intubation Intubation #1: Intubation Date: 04/20/25 Time out performed: Yes (10) sedative: none paralytic: other ( NONE) Laryngoscope: fiber optic video scope Assist Device Used: fiber optic device Tube Size (cm): 7.5 Method of Intubation: orotracheal Number of Attempts: 2 Tube Secured Depth (cm): 23 Tube Secured Location: lips Tube Placement Confirmation: visualized tube passing through cords, equal breath sounds bilaterally, no breath sounds over epigastrium and confirmation by capnometry Patient Tolerated Procedure: no complications Intubation Complications: none Critical Care Time Critical Care Time Critical Care Time: Yes Total Critical Care Time: 30 Discharge Plan Discharge Clinical Impression: Cardiopulmonary arrest Patient Disposition: Condition: Terminal Patient Language: [place] Prescriptions: No Action clopidogrel 75 mg Tablet 75 mg PO DAILY aspirin [Adult Low Dose Aspirin] 81 mg Tablet,Delayed Release (Dr/Ec) 81 mg PO DAILY amlodipine 10 mg Tablet 10 mg PO DAILY simvastatin 20 mg Tablet 20 mg PO DAILY metformin 1,000 mg Tablet 1,000 mg PO DAILY benazepril 40 mg Tablet 40 mg PO DAILY Jardiance 10 mg Tablet 10 mg PO DAILY carvedilol 25 mg Tablet 25 mg PO BID Rx Instructions: must administer with a meal/food clonidine HCl 0.2 mg Tablet 0.2 mg PO TID Follow-up/Referrals: Kevin Lr MD [Emergency Provider] -
--- NOTE | 2025-04-21 06:19 | PC.NURSE ---
224 - TOD 233 - [facility] notified (Sophia) made aware we have no morgue. 234 - Interpreter notified 235 - [facility] returned call, updated on patient family contact information and pt preferred home. 16 - Interpreter notified of out of state Home ([facility]) request by family (son All) 0021 - RN phoned [facility] in [place], [place] spoke with Alma - RN asked for ETA, made aware we have no morgue 010 - [facility] returned call stating patient was candidate for tissue donation, they will work with the home (contact information provided) okay to release to home and they will be in contact with them. 0 - Bety from [facility] phoned update included possibly having a closer rv parts and service director obtain patient to bring to them. 13 - RN phoned home for update, spoke with answering service (Perla) took contact for home to return call for update. 15 - Interpreter updated patient remains here with no ETA from home.
--- NOTE | 2025-04-21 07:07 | PC.NURSE ---
care of pt transferred to ANTOINETTE Figueroa for day shift.
--- NOTE | 2025-04-21 07:16 | PC.NURSE ---
pt's home contacted, after-hours service will forward our message to return call with transportation update.
--- NOTE | 2025-04-21 07:37 | PC.NURSE ---
home contacted. they states [facility] will continue to try to reach them. confirmed sussyy have correct phone number.
--- NOTE | 2025-04-21 07:47 | PC.NURSE ---
[facility] answering service contacted. requested they have director return call anirudh. message marked urgent. awaiting call back from [facility]
--- NOTE | 2025-04-21 08:07 | PC.NURSE ---
received call back from [facility]. states they have not received any calls from [facility] in [place], [place] states they will call them and get info for pt care. awaiting call-back from [facility] with body removal information.
--- NOTE | 2025-04-21 08:32 | PC.NURSE ---
[facility] called asking where this pt is. informed [facility] will be coming to get pt soon. [facility] staff states they are going to speak with family member this am.
--- NOTE | 2025-04-21 08:36 | PC.NURSE ---
[facility] called. states varsha from [facility] is coming to chart picker pt. awaiting home arrival
--- NOTE | 2025-04-21 08:38 | PC.NURSE ---
[facility] called back. states they will not be able to take care of this pt.
--- NOTE | 2025-04-21 08:47 | PC.NURSE ---
emily [facility] console attendant contacted. states he will not be collecting the b
--- NOTE | 2025-04-21 08:48 | PC.NURSE ---
[place] [address] contacted states he will not be collecting this pt. advised to call [facility]. states they are supposed to be coming to remove pt for donation
--- NOTE | 2025-04-21 08:52 | PC.NURSE ---
[facility] contacted. sammie at [facility] states [facility] will be coming to pick pt up and transport them to [facility] for donation retrieval.
--- NOTE | 2025-04-21 08:56 | PC.NURSE ---
[facility] called. states they are en route and will arrive within the hour.
== END 2025-04-20 22:49 | disposition expired ==
PROVIDERS: Emergency Provider Emergency Medicine
DX: I46.9 Cardiac arrest, cause unspecified (principal); I11.0 Hypertensive heart disease with heart failure; I50.9 Heart failure, unspecified; I25.810 Atherosclerosis of coronary artery bypass graft(s) without angina pectoris; E11.9 Type 2 diabetes mellitus without complications; Z95.1 Presence of aortocoronary bypass graft
CPT/HCPCS: 31500; 92950; 99285